=== PATIENT | female | born 1950 | race Caucasian/White ===

== ENCOUNTER → 2017-02-17 | Outpatient (CLI) | payer MEDICARE, OTHER, SELFPAY | PROVIDERS: Family Provider Internal Medicine Adolescent Medicine; Visit Provider Nurse Practitioner Family | DX: M54.5 Low back pain (principal) | CPT/HCPCS: 72110 ==

== ENCOUNTER 2017-04-04 19:39 | Emergency (ER) | payer MEDICARE, OTHER, SELFPAY ==
[2017-04-04 19:43] VITALS: BP 188/71; PULSE 65; RESP 20; TEMP 36.8; O2SAT 96; BMI 29.2
--- NOTE | 2017-04-04 19:56 | XR_ITS ---
XR chest 2V HISTORY: ITS.REASON: C/O N/V AND PRODUCTIVE COUGH ORDERING PHYSICIAN: Tawanda Cortez MD PATIENT AGE: 66 years COMPARISON: 02/05/2017 FINDINGS: The cardiomediastinal silhouette and pulmonary vascularity are within normal limits. The lungs are clear without infiltrates, suspicious nodules, or pleural effusions. There are multilevel interpedicular screws with stabilizing rods. There is severe osteosclerosis in the midthoracic spine. Lower thoracic and upper lumbar spine are not well delineated with multilevel degenerative disc disease. Spine films may be of further value for better delineation of the spine.. IMPRESSION: No change with no acute finding. See above for detail
[2017-04-04 20:12] LABS: Basophils # 0.1 K/mm3 (0-0.2); Basophils % 0.8 % (0.1-2.0); Eosinophils % 0.2 % (0.1-12.0); Hematocrit 47.2 % (37.0-47.0); Hemoglobin 14.6 g/dL (12.2-16.2); Lymphocytes # 1.1 K/mm3 (0.7-4.5); Lymphocytes % 13.1 K/mm3 (10-50); Mean Corpuscular HGB Conc 30.9 g/dL (31.8-35.4); Mean Corpuscular Hemoglobin 30.2 pg (27.0-31.2); Mean Corpuscular Volume 97.8 fl (81-99); Mean Platelet Volume 8.2 fl (7.4-10.4); Monocytes # 0.5 K/mm3 (0.1-1.0); Monocytes % 5.6 % (1.7-9.3); Neutrophils # 6.7 K/mm3 (1.8-7.8); Neutrophils % 80.4 % (37.0-80.0); Platelet Count 258 K/mm3 (142-424); Red Blood Count 4.83 M/mm3 (4.20-5.40); Red Cell Distribution Width 14.6 % (11.5-17.5); White Blood Count 8.3 K/mm3 (4.8-10.8)
[2017-04-04 20:20] LABS: Microscopic, Urine URINE MICROSCOPIC (MICROSCOPIC)
[2017-04-04 20:26] LABS: Appearance,Urine CLEAR (Clear); Blood, Urine 1+ (Negative); Color,Urine YELLOW (Yellow); Glucose,Urine (UA) 1+ (Negative); Ketones,Urine 3+ (Negative); Leukocyte Esterase,Urine Negative (Negative); Nitrate,Urine Negative (Negative); PH,Urine 6.5 (5.0-8.5); Protein,Urine 3+ (Negative); Specific Gravity, Urine >= 1.030 (1.005-1.030); Urobilinogen,Urine 0.2 EU/dl (0.2)
[2017-04-04 20:28] LABS: Bilirubin,Urine 1+ (Negative)
[2017-04-04 20:39] LABS: Alanine Aminotransferase 22 U/L (12-78); Albumin Level 3.6 gm/dL (3.4-5.0); Albumin/Globulin Ratio 0.9 (1.1-1.8); Alkaline Phosphatase 86 U/L (46-116); Anion Gap 15.5 mEq/L (5-15); Aspartate Amino Transferase 10 U/L (15-37); Bilirubin,Total 0.4 mg/dL (0.2-1.0); Blood Urea Nitrogen 13 mg/dL (7-18); Calcium 8.7 mg/dL (8.5-10.1); Carbon Dioxide 25 mmol/L (21.0-32.0); Chloride 103 mmol/L (98-107); Creatine Kinase 36 U/L (26-192); Creatinine Clearance Estimated 66 mL/min (0-300); Creatinine,Serum 0.69 mg/dL (0.55-1.02); Estimated Glomerular Filt Rate 85 ml/min (>60); GFR (African American) 102 ML/MIN (>60); Globulin 4.1 gm/dl (1.3-3.2); Glucose 243 mg/dL (74-106); Potassium 3.5 mmoL/L (3.5-5.1); Sodium 140 mmol/L (136-145); Total Protein,Serum 7.7 gm/dL (6.4-8.2); Troponin I 0.03 ng/ml (0.00-0.06)
[2017-04-04 20:45] LABS: CKMB Relative Index 1.4 U/L (0-4.0); Creatine Kinase MB < 0.5 mg/ml (0.0-3.6)
[2017-04-04 21:12] LABS: Bacteria,Urine 3+ /lpf; RBC,Urine Occasional #/hpf (0-3); Squamous Epithelial Cell,Urine 20-50 #/hpf (0-5); WBC,Urine 20-50 #/hpf (0-3)
--- NOTE | 2017-04-04 21:31 | PC.NURSE ---
C/O LEFT SIDED CHEST PAIN. EKG REPEATED. DR FAIRCHILD NOTIFIED
[2017-04-04 21:32] VITALS: BP 163/84; PULSE 71; RESP 20; O2SAT 99
--- NOTE | 2017-04-04 22:35 | [facility].EDNVD ---
ED Disposition Clinical Impression: Bronchitis, Gastroenteritis Disposition: Home, Self-Care Condition on Discharge: Good Instructions: Nausea and Vomiting-Adult Additional Instructions: fluids and see pcp this week Prescriptions: Azithromycin [Zithromax 250mg tab] 250 mg PO DIRECTED #6 tab Benzonatate [Tessalon Perle 100mg Cap] 100 mg PO TID #30 cap Ondansetron HCl [Zofran 4mg Tab] 4 mg PO TID #30 tab Referrals: Antonio Ta MD [Primary Care Provider] - - Critical Care Critical Care Time: No Attestation: On 04/04/17, the high probability of a clinically significant, sudden or life threatening deterioration of the following system(s) required my full and direct attention, intervention and personal management. The time I documented below is in addition to time spent performing reported procedures but includes the following listed in this critical care notation. Medical Decision Making - Medical Records Medical records reviewed: Yes: I reviewed the patient's medical records. Vital Signs: 04/04/17 19:43 04/04/17 21:32 Temperature 98.2 F Temperature Source Oral Pulse Rate [Right Brachial] 65 71 Respiratory Rate 20 20 Blood Pressure [Right Arm] 188/71 163/84 Blood Pressure Mean [Right Arm] 110 110 Blood Pressure Source [Right Arm] Automatic Cuff Automatic Cuff Blood Pressure Position [Right Arm] Supine Supine 02 Sat by Pulse Oximetry 96 99 Oxygen Delivery Method Room Air Room Air - Lab Data Lab results reviewed: Yes: I reviewed the patient's lab results. Lab Results 04/04/17 19:58: WBC 8.3, RBC 4.83, Hgb 14.6, Hct 47.2 H, MCV 97.8, MCH 30.2, MCHC 30.9 L, RDW 14.6, Plt Count 258, MPV 8.2, Neut % (Auto) 80.4 H, Lymph % (Auto) 13.1, [place] % (Auto) 5.6, Eos % (Auto) 0.2, Baso % (Auto) 0.8, Neut # (Auto) 6.7, Lymph # (Auto) 1.1, [place] # (Auto) 0.5, Eos # (Auto) 0.0, Baso # (Auto) 0.1 04/04/17 19:58: Sodium 140, Potassium 3.5, Chloride 103, Carbon Dioxide 25, Anion Gap 15.5 H, BUN 13, Creatinine 0.69, Estimated Creat Clear 66, Estimated GFR 85, Est GFR ( Amer) 102, Glucose 243 H, Calcium 8.7, Total Bilirubin 0.4, AST 10 L, ALT 22, Alkaline Phosphatase 86, Total Creatine Kinase 36, CK-MB (CK-2) < 0.5, CK-MB (CK-2) Rel Index 1.4, Troponin I 0.03, Total Protein 7.7, Albumin 3.6, Globulin 4.1 H, Albumin/Globulin Ratio 0.9 L 04/04/17 20:17: Urine Color Yellow, Urine Appearance Clear, Urine pH 6.5, Ur Specific [place] >= 1.030, Urine Protein 3+, Urine Glucose (UA) 1+, Urine Ketones 3+, Urine Blood 1+, Urine Nitrate Negative, Urine Bilirubin 1+ A, Urine Urobilinogen 0.2, Ur Leukocyte Esterase Negative, Urine RBC Occasional, Urine WBC 20-50, Ur Squamous Epith Cells 20-50, Urine Bacteria 3+ 04/04/17 23:00: ESR 30 04/04/17 23:00: C-Reactive Protein 0.8, Amylase 28 04/04/17 23:00: Lactic Acid 1.6 04/04/17 23:00: Lipase 164 Result diagrams: 04/04/17 19:58 04/04/17 19:58 Orders (Tests/Meds): ED MEDICATIONS Generic Name Dose Route Start Last Admin Trade Name Freq PRN Reason Stop Dose Admin Sodium Chloride 1,000 mls @ 100 mls/hr 04/04/17 22:45 04/04/17 23:04 Sod Chlor 0.9% 1000ml Bag IV 05/04/17 22:44 100 mls/hr .Q10H DANITZA Administration Discontinued Medications Generic Name Dose Route Start Last Admin Trade Name Freq PRN Reason Stop Dose Admin Sodium Chloride 1,000 mls @ 999 mls/hr 04/04/17 20:00 04/04/17 20:11 Sod Chlor 0.9% 1000ml Bag IV 04/04/17 21:00 999 mls/hr .Q1H1M DANITZA Administration Ondansetron HCl 4 mg 04/04/17 19:56 04/04/17 20:10 Zofran 4mg/2ml Vial IV 04/04/17 19:57 4 mg ONCE ONE Administration ORDERS Category Date Time Status CT abdomen pelvis wo con Stat Cat Scan 04/04/17 22:39 Taken Chest XR 2 view (NOT portable) [XR chest 2V] Stat Exams 04/04/17 19:56 Taken Urine Culture Stat Micro 04/04/17 20:17 Received 12-lead EKG Request [ECG Request by /Shena] Stat Y 04/04/17 21:32 Ordered ECG Request by /Shena Stat Y 04/04/17 19:55 [place]de
--- NOTE | 2017-04-04 22:39 | CT_ITS ---
CT abdomen pelvis wo con CLINICAL INDICATION: Abdominal pain with nausea ITS.REASON: abd pain ORDERING PHYSICIAN: Tawanda Cortez MD PATIENT AGE: 66 years COMPARISON: 03 30 10 TECHNIQUE: Axial images obtained with sagittal and coronal reformats. PROCEDURE: Oral Contrast: None IV Contrast: None . FINDINGS: Lower thoracic images show cardiomegaly and coronary artery calcifications. The liver, spleen, adrenal glands, and pancreas are unremarkable. There has been a prior cholecystectomy without ductal dilatation. Extensive artifact is present from rods within the thoracic and lumbar spine. There is a 3.7 cm isodensity left kidney probably related to a cyst and may be confirmed with ultrasound. No hydronephrosis or obstructing renal or ureteral calculus evident. No evidence of appendicitis or diverticulitis. No intestinal obstruction or free air. There is mild amount of feces in the rectosigmoid region. Prior hysterectomy. Unremarkable appearing urinary bladder. No pelvic mass or focal inflammatory change evident. Extensive artifact is present from thoracolumbar spinal fusion is left hip prosthesis. There is mild lumbar scoliosis convex left. There is 8 mm anterolisthesis of L4 on L5 similar to the previous exam IMPRESSION: 1. No acute intra-abdominal or pelvic findings. 2. Extensive postsurgical changes of the lumbar spine, prior left hip replacement
--- NOTE | 2017-04-04 22:40 | ED_ITS ---
ED Disposition Clinical Impression: Bronchitis, Gastroenteritis Disposition: Home, Self-Care Condition on Discharge: Good Instructions: Nausea and Vomiting-Adult Additional Instructions: fluids and see pcp this week Prescriptions: Azithromycin [Zithromax 250mg tab] 250 mg PO DIRECTED #6 tab Benzonatate [Tessalon Perle 100mg Cap] 100 mg PO TID #30 cap Ondansetron HCl [Zofran 4mg Tab] 4 mg PO TID #30 tab Referrals: Antonio Ta MD [Primary Care Provider] - - Critical Care Critical Care Time: No Attestation: On 04/04/17, the high probability of a clinically significant, sudden or life threatening deterioration of the following system(s) required my full and direct attention, intervention and personal management. The time I documented below is in addition to time spent performing reported procedures but includes the following listed in this critical care notation. Medical Decision Making - Medical Records Medical records reviewed: Yes: I reviewed the patient's medical records. Vital Signs: 04/04/17 19:43 04/04/17 21:32 Temperature 98.2 F Temperature Source Oral Pulse Rate [Right Brachial] 65 71 Respiratory Rate 20 20 Blood Pressure [Right Arm] 188/71 163/84 Blood Pressure Mean [Right Arm] 110 110 Blood Pressure Source [Right Arm] Automatic Cuff Automatic Cuff Blood Pressure Position [Right Arm] Supine Supine 02 Sat by Pulse Oximetry 96 99 Oxygen Delivery Method Room Air Room Air - Lab Data Lab results reviewed: Yes: I reviewed the patient's lab results. Lab Results 04/04/17 19:58: WBC 8.3, RBC 4.83, Hgb 14.6, Hct 47.2 H, MCV 97.8, MCH 30.2, MCHC 30.9 L, RDW 14.6, Plt Count 258, MPV 8.2, Neut % (Auto) 80.4 H, Lymph % ( Auto) 13.1, [place] % (Auto) 5.6, Eos % (Auto) 0.2, Baso % (Auto) 0.8, Neut # (Auto ) 6.7, Lymph # (Auto) 1.1, [place] # (Auto) 0.5, Eos # (Auto) 0.0, Baso # (Auto) 0.1 04/04/17 19:58: Sodium 140, Potassium 3.5, Chloride 103, Carbon Dioxide 25, Anion Gap 15.5 H, BUN 13, Creatinine 0.69, Estimated Creat Clear 66, Estimated GFR 85, Est GFR ( Amer) 102, Glucose 243 H, Calcium 8.7, Total Bilirubin 0.4, AST 10 L, ALT 22, Alkaline Phosphatase 86, Total Creatine Kinase 36, CK-MB (CK-2) < 0.5, CK-MB (CK-2) Rel Index 1.4, Troponin I 0.03, Total Protein 7.7, Albumin 3.6, Globulin 4.1 H, Albumin/Globulin Ratio 0.9 L 04/04/17 20:17: Urine Color Yellow, Urine Appearance Clear, Urine pH 6.5, Ur Specific [place] >= 1.030, Urine Protein 3+, Urine Glucose (UA) 1+, Urine Ketones 3+, Urine Blood 1+, Urine Nitrate Negative, Urine Bilirubin 1+ A, Urine Urobilinogen 0.2, Ur Leukocyte Esterase Negative, Urine RBC Occasional, Urine WBC 20-50, Ur Squamous Epith Cells 20-50, Urine Bacteria 3+ 04/04/17 23:00: ESR 30 04/04/17 23:00: C-Reactive Protein 0.8, Amylase 28 04/04/17 23:00: Lactic Acid 1.6 04/04/17 23:00: Lipase 164 Result diagrams: 04/04/17 19:58 04/04/17 19:58 Orders (Tests/Meds): ED MEDICATIONS Generic Name Dose Route Start Last Admin Trade Name Freq PRN Reason Stop Dose Admin Sodium Chloride 1,000 mls @ 100 mls/hr 04/04/17 22:45 04/04/17 23:04 Sod Chlor 0.9% 1000ml Bag IV 05/04/17 22:44 100 mls/hr .Q10H DANITZA Administration Discontinued Medications Generic Name Dose Route Start Last Admin Trade Name Freq PRN Reason Stop Dose Admin Sodium Chloride 1,000 mls @ 999 mls/hr 04/04/17 20:00 04/04/17 20:11 Sod Chlor 0.9% 1000ml Bag
[2017-04-04 23:46] LABS: Lipase 164 u/L (73-393)
[2017-04-04 23:47] LABS: Amylase 28 U/L (25-125); C-Reactive Protein 0.8 mg/L (0.0-0.9)
[2017-04-04 23:52] LABS: Lactic Acid 1.6 mmol/L (0.4-2.0)
[2017-04-05 01:01] LABS: Erythrocyte Sedimentation Rate 30 mm/hr (0-30)
--- NOTE | 2017-04-05 01:17 | PC.NURSE ---
ON THE PHONE WITH AT THIS TIME
[2017-04-05 01:24] VITALS: BP 158/100; PULSE 77; RESP 14; O2SAT 99
[2017-04-05 01:44] VITALS: BP 140/90; PULSE 88; RESP 14; TEMP 37; O2SAT 96
== END 2017-04-05 01:47 | disposition home or self-care (01) ==
PROVIDERS: Emergency Provider Emergency Medicine; Family Provider Internal Medicine Adolescent Medicine; PCP Internal Medicine Adolescent Medicine
DX: J20.9 Acute bronchitis, unspecified (principal); K52.9 Noninfective gastroenteritis and colitis, unspecified; E11.65 Type 2 diabetes mellitus with hyperglycemia; Z96.642 Presence of left artificial hip joint; Z96.653 Presence of artificial knee joint, bilateral; F17.210 Nicotine dependence, cigarettes, uncomplicated
CPT/HCPCS: 36415; 71046; 74176; 80053; 81001; 82150; 82550; 82553; 83605; 83690; 84484; 85025; 85651; 86140; 87086; 93005; 93041; 96365; 96366; 96374; 96375; 99284; J2405

== ENCOUNTER → 2017-07-20 18:02 | Outpatient (CLI) | payer MEDICARE, OTHER, SELFPAY ==
--- NOTE | 2017-07-20 | XR_ITS ---
XR tibia fibula RT 2V Ordering Physician: Antonoi Ta MD Patient Age: 66 years: Female HISTORY: ITS.REASON: ACUTE PAIN DUE TO TRAUMA Fall 2 weeks ago pain right lateral tib-fib. TECHNIQUE: 2 view right lower leg COMPARISON : FINDINGS The tibia and fibula are intact with no acute fracture. Right total knee arthroplasty. Hypertrophic changes are seen about the margins of the tibia plateau and tibial plateau componen, with spurring most evident laterally from margin of tibia. At this chronic calcification popliteal artery. 2 views of ankle included with no acute findings. Joint space maintained with only scant arthritic changes here. IMPRESSION: -------- Right tibia & fibula are intact no fracture. Right knee TKA . Degenerative changes about TK A, but no acute findings at right knee, on this right lower leg study
--- NOTE | 2017-07-20 | XR_ITS ---
XR femur RT 2V, XR hip RT 2-3V w/pelvis, XR hip LT 2-3V w/pelvis Ordering Physician: Antonio Ta MD Patient Age: 66 years: Female HISTORY: Fall with right leg, right femur, pelvic along with right and left hip pain TECHNIQUE: Right femur 2 view Right hip 2 view. AP and frog-leg Left hip 2 view.AP and frog-leg AP pelvis included COMPARISON :Right hip April 2016 left hip November 2016 ======== RIGHT FEMUR 2 VIEW Right femur intact no fracture. Right femoral shaft intact. Minimal calcification distal SFA 2 view of the knee again included with right NOE a intact no acute findings here. No joint effusion. Some minimal lucency about the tibial pain. Hypertrophic changes about the margin of the tibial component most evident laterally.. ====== RIGHT HIP 2 VIEW Right hip stable and intact with no significant change sinceNo significant change since April 2016 No. fracture. Femoral head and neck intact. Trochanteric region intact.. Joint spaces well-maintained. No acute findings ======= LEFT HIP 2 VIEW Left hip left hip prosthesis. Femoral head prosthesis with acetabular cup. Could be bipolar but there are some flanges from the superior margin of the acetabular cup component and thus could be could be a NOE type product. In either case Appear to be good position with no fracture nor loosening... No significant change since April 2016 on AP view. With slight differences in positioning compared to November 2012 nor left hip most likely reflect the less optimal frog-leg, lateral view today. Medullary stem is intact at the proximal femur. The acetabular component appears stable position.. =-== AP PELVIS included with the the hip study. Shows no acute findings at the pelvis. Patient with posterior fusion and rods at the lower L-spine bilaterally with multiple pedicle screws. There are also pedicle screws extends into the iliac bones bilaterally. There is some prominent lucency surrounding the left iliac screw but this is similar to 2017 exam..... Stable scant scant lucency about the right iliac bone screw. ====== Impression: 1. No fracture nor acute findings at: right femur, right hip, left hip, nor pelvis. 2. Right hip intact.. No fracture.Stable since May 07 . ... Right femur intact 3. Left hip appears stable since April 2016. Left hip prosthesis appears similar with no acute fracture nor loosening. 4. Osseous pelvis. No acute findings The patient has extensive posterior lumbar -sacral fusion, including screws extending into the iliac bone bilaterally. There is noted to be prominent lucency about the left iliac screw, which likely reflects some movement & loosening here. This feature is similar if not slightly more pronounced today than on April 2016. May benefit from follow-up particularly if pain in this region
--- NOTE | 2017-07-20 | XR_ITS ---
XR ribs LT min 3V w CXR1V, XR ribs RT min 3V w CXR1V Ordering Physician: Antonio Ta MD Patient Age: 66 years: Female HISTORY: Fall 2 weeks ago with bilateral rib pain multiple areas of pain and. From injury TECHNIQUE: RIGHT RIBS SERIES: Oblique views with AP chest above and below diaphragm LEFT RIB SERIES Oblique views with AP chest above and below diaphragm COMPARISON :Chest film to 1218. Right rib studies from May 2014 . Left ribs studies from 10/18/2014 ======= RIGHT RIBS SERIES:. Multiple old healed fractures are seen in the right . Most evident old rib fractures involve posterior right 9 th & 10th ribs... With also old healed fractures at posterior lateral eighth seventh and sixth ribs.. These are old & do not appear to be acute. I see no discrete acute fractures additionally. Some of these fractures date back to 2014. No pneumothorax. No pleural effusion in either right or left chest. No focal pneumonia. Tortuous aorta. Heart normal upper normal size. ======== LEFT RIB SERIES . Left ribs appear intact with no acute fracture evident. No significant change since 2014 comparison study. Arthritic changes at the left shoulder noted with narrowing glenohumeral joint and possibly old fracture at the anatomic neck of humerus pain for some foreshortened appearance of the anatomical here The bilateral fixation rods are again noted extending to the mid T-spine. Associated disc space narrowing to T7/8: T8-9 with sclerotic changes about these narrowed disc just superior to the beginning of fixation adrien again noted and stable since 2017 CXR Arthritic changes both shoulders- more severe on the left . IMPRESSION: ... No acute fractures either right nor left ribs. . Multiple old right rib fractures. (Old healed fractures Involving ribs right 6 , 7, 8 , 9, 10, Lungs well expanded and clear with no active disease. Posterior fixation rods extending from mid T-spine to the pelvis appear unchanged
--- NOTE | 2017-07-20 | XR_ITS ---
XR lumbar spine min 4V, ======= seen Ordering Physician: Antonio Ta MD Patient Age: 66 years: Female HISTORY: Low back pain. Fall 2 weeks ago with multiple injuries. Pain. Acute Low back pain. Previous surgery. TECHNIQUE:: LUMBAR SPINE series 5 view. COMPARISON :January 2014 lumbar spine series. ======= LUMBAR SPINE SERIES No discrete acute fracture or findings lumbar spine Extensive posterior fusion spine. Fixation rods begins at lower T-spine & continues through lumbar spine to the pelvis. As seen on subsequent rib series discussed below from today, these Posterior fixation rods begins at the at at approximately T8 level with associated securing pedicle screws at T8, T9 T10 T11 bilaterally and right pedicle screw at T12. Left pedicle screw L1 & L3. Continuing in inferiorly bilateral pedicle screws are seen at L4 & L5, & S1; as well is long pedicle screws extending laterally into the iliac bone.. There is now prominent lucency about the screw change in the left iliac bone. This is progressed since 2013 and even slight progression since left hip series 2016 . Mild levoscoliosis of the lumbar spine with very osteoporotic L1-L2 L3 as well as L4. Marked disc space narrowing at all levels with possibly ankylosis or partial fusion at this nearly obliterating the disc space at L1/2, L2/3.. L4/5 also with markedly narrowed possible partial fused disc space. . The lateral spot image of lumbar sacral junction shows somewhat unusual L4-S1.. At L5/S1 the disc space is notably widened anteriorly possibly in part due to a disc spacer device placed here. The posterior disc space L5/S1 is relatively narrowed narrowed but stable..- With this L5 vertebra demonstrates upward tilt, which then impinges upon the inferior aspect of L4 vertebra.. There is pronounced grade near grade 2 spondylolisthesis of L4 on L5 with progressive hypertrophic lipping and changes at the posterior margin of this disc space... L4/5 disc space with concave inferior endplate of L4 vertebra reflecting the impaction of L5 superior anterior corner upon the inferior endplate L4 vertebra. This appearance is been present since 29 December 2012 lumbar spine series. I would note there also is some bone graft material laterally from prior fusion procedure as well Again I see no good evidence of compression fracture and the slight loss of height of L4 appears to be a stable feature. Sacrum appears intact. If lumbar pain persist consider follow-up CT more detailed evaluation ...... IMPRESSION....... 1. No evident acute fracture or findings at lumbosacral spine . 2. Extensive posterior fusion of spine again evident-. Fixation elements & posterior rods extends from T8 level to the pelvis. This includes screws extending into the iliac bone bilaterally..... Prominent progressive lucency has developed about the left iliac bone fixation screw, suggesting movement. No fracture but Progressive lucency and marginal sclerosis over time,... This would benefit from follow-up, particular if persistent pain here.( preferably with the surgery group which performed this procedure.) . 3.... Long-standing Near grade 2 spondylolisthesis of L4 on L5,... With associated long-standing pronounced inferior endplate concavity L4 related to the retrolisthesis and upward tilt of L5 vertebra... Marked degenerative Disc space narrowing at L4/5 again noted.. .
== END ==
PROVIDERS: PCP Internal Medicine Adolescent Medicine; Visit Provider Internal Medicine Adolescent Medicine
DX: G89.11 Acute pain due to trauma (principal)
CPT/HCPCS: 71101; 72110; 73502; 73552; 73590

== ENCOUNTER → 2017-07-29 11:13 | Outpatient (POV) | payer MEDICARE, OTHER, SELFPAY | PROVIDERS: Visit Provider Podiatrist | DX: Z00.00 Encounter for general adult medical examination without abnormal findings (principal) ==

== ENCOUNTER → 2017-09-09 16:31 | Outpatient (CLI) | payer MEDICARE, OTHER, SELFPAY ==
--- NOTE | 2017-09-09 16:38 | CT_ITS ---
CT head/brain wo con HISTORY: Left side facial pain numbness and droop recurrent maxillary sinus ORDERING PHYSICIAN: Antonio Ta MD PATIENT AGE: 66 years COMPARISON: Previous CT head with and without contrast 10/25/2012 TECHNIQUE: Axial images obtained without contrast. Brain and bone windows reviewed. All CT scans at the facility use one or more dose reduction, viz: automated exposure control; ma/kV adjustment per patient size (including targeted exams where dose is matched to indication; i.e. head); or iterative reconstruction technique. FINDINGS: No acute intracranial findings. No mass lesion or mass effect No midline shift,. No no intracranial hemorrhage, hydrocephalus, or extra-axial fluid collection is evident. . Cerebral atrophy. Low-density deep white matter compatible with chronic small vessel deep white matter ischemic gliotic changes. This subtle low-density in the deep white matter is slightly more evident since 2012 suggesting interval progression since 2012. The posterior fossa unremarkable No mastoid effusion. No sinus air-fluid levels.. IMPRESSION: .. No acute intracranial finding . Small vessel deep white matter ischemic gliotic changes cerebral hemispheres, accounts for the vague low-density deep white matter low-density which , slightly more evident than evident in 2013
--- NOTE | 2017-09-09 16:39 | CT_ITS ---
CT facial bones wo con CLINICAL HISTORY:Left facial pain numbness and droop recurrent maxillary sinusitis ORDERING PHYSICIAN: Antonio Ta MD PATIENT AGE: 66 years COMPARISON:None TECHNIQUE: Axial, sagittal and coronal images are generated and reviewed. All CT scans at this facility use one or more dose reduction techniques, viz.: automated exposure control; ma/kV adjustment per patient size (including targeted exams where dose is matched to indication; i.e. head) or iterative reconstruction technique. PROCEDURE: IV Contrast: None FINDINGS: . Scanning performed through the paranasal sinuses does not include the mandible The maxillary sinuses are well-developed and clear with no significant mucosal thickening at the ostiomeatal complex and pathway is patent bilaterally. The ethmoid air cells unremarkable. Frontal sinuses clear. Mastoid air cells partially imaged well-developed and clear middle ear clear IACs unremarkable. The nasal bone intact. Patient edentulous. Orbits unremarkable., There is some minor deviation and nasal septum to the right. Small up to 3.5 mm minor septal spur to the right encroaches upon the right right nasal airway. Mild/moderate engorgement. Of the nasal turbinates, May encroach upon the nasal airway slightly as well.. .. Left Jazz bullosa there is a slightly enlarged the base of the left middle turbinate IMPRESSION:...... 1.. The paranasal sinuses are well-developed and clear.. .No sinusitis. No remarkable mucosal thickening . Ostiomeatal unit widely patent bilaterally . 2. Centimeters Minor deviation nasal septum to the right. Small septal spur to the right . Moderate engorgement nasal turbinates.. Jazz bullosa slightly enlarging base of left middle turbinate. . These Features slightly compromise the nasal airway bilaterally
== END ==
PROVIDERS: PCP Internal Medicine Adolescent Medicine; Visit Provider Internal Medicine Adolescent Medicine
DX: G50.1 Atypical facial pain (principal)
CPT/HCPCS: 70450; 70486

== ENCOUNTER → 2018-01-04 16:59 | Outpatient (CLI) | payer MEDICARE, OTHER, SELFPAY ==
[2018-01-04 17:36] LABS: Basophils # 0.1 K/mm3 (0-0.2); Basophils % 0.9 % (0.1-2.0); Eosinophils # 0.1 K/mm3 (0.0-0.4); Hematocrit 41.3 % (37.0-47.0); Hemoglobin 12.8 g/dL (12.2-16.2); Lymphocytes # 1.8 K/mm3 (0.7-4.5); Lymphocytes % 26.7 % (10-50); Mean Corpuscular Hemoglobin 31.7 pg (27.0-31.2); Mean Platelet Volume 7.1 fl (7.4-10.4); Monocytes # 0.3 K/mm3 (0.1-1.0); Monocytes % 4.7 % (1.7-9.3); Neutrophils # 4.5 K/mm3 (1.8-7.8); Neutrophils % 66.6 % (37.0-80.0); Platelet Count 250 K/mm3 (142-424); Red Blood Count 4.05 M/mm3 (4.20-5.40); Red Cell Distribution Width 14.2 % (11.5-17.5); White Blood Count 6.8 K/mm3 (4.8-10.8)
[2018-01-04 23:47] LABS: Alanine Aminotransferase 14 U/L (12-78); Albumin Level 3.2 gm/dL (3.4-5.0); Albumin/Globulin Ratio 0.9 (1.1-1.8); Alkaline Phosphatase 91 U/L (46-116); Aspartate Amino Transferase 6 U/L (15-37); Bilirubin,Total 0.3 mg/dL (0.2-1.0); Blood Urea Nitrogen 15 mg/dL (7-18); Calcium 8.7 mg/dL (8.5-10.1); Carbon Dioxide 25 mmol/L (21.0-32.0); Chloride 102 mmol/L (98-107); Creatinine,Serum 0.84 mg/dL (0.55-1.02); Estimated Glomerular Filt Rate 67 ml/min (>60); GFR (African American) 81 ML/MIN (>60); Globulin 3.4 gm/dl (1.3-3.2); Glucose 275 mg/dL (74-106); Sodium 138 mmol/L (136-145); Total Protein,Serum 6.6 gm/dL (6.4-8.2)
== END ==
PROVIDERS: Visit Provider Internal Medicine Adolescent Medicine
DX: R29.898 Other symptoms and signs involving the musculoskeletal system (principal); Z86.79 Personal history of other diseases of the circulatory system
CPT/HCPCS: 36415; 80053; 85025

== ENCOUNTER → 2018-01-09 12:58 | Outpatient (CLI) | payer MEDICARE, OTHER, SELFPAY ==
--- NOTE | 2018-01-09 13:05 | CI_ITS ---
Cerebrovascular Exam Indications: Follow-up carotid 433.10. IMPRESSIONS 1. The bilateral vertebral arteries are patent with normal antegrade flow. 2. Study suggests 20-49% stenosis involving the right internal carotid artery. 3. Study suggests less than 20% stenosis involving the left internal carotid artery. History: Risk factors: Current tobacco use. Hypertension. Diabetes mellitus. Labs, prior tests, procedures, and surgery: Left endarterectomy. Labs, prior tests, procedures, and surgery: Left endarterectomy. Carotid duplex study. Complete study and Doppler flow study including spectral analysis, color and adam scale imaging. Height: Height: 160cm. Height: 63in. Weight: Weight: 77.1kg. Weight: 169.6lb. Body mass index: BMI: 30.1kg/m^2. Body surface area: BSA: 1.88m^2. Location: Vascular laboratory. Patient status: Outpatient. Tables: Arterial flow: + +--------+--------+ Location V sys V ed + +--------+--------+ Right CCA - proximal 77.9cm/s 17.6cm/s + +--------+--------+ Right CCA - distal 62.9cm/s 15.1cm/s + +--------+--------+ Right ECA 174cm/s -------- + +--------+--------+ Right ICA - proximal 126cm/s 24.4cm/s + +--------+--------+ Right ICA - mid 109cm/s 35.6cm/s + +--------+--------+ Right ICA - distal 101cm/s 34.9cm/s + +--------+--------+ Right vertebral 62.9cm/s -------- + +--------+--------+ Left CCA - proximal 68.9cm/s 18.5cm/s + +--------+--------+ Left CCA - distal 72.8cm/s 16.6cm/s + +--------+--------+ Left ECA 112cm/s -------- + +--------+--------+ Left ICA - proximal 69.7cm/s 12.8cm/s + +--------+--------+ Left ICA - mid 74.2cm/s 21.1cm/s + +--------+--------+ Left ICA - distal 79.1cm/s 24.6cm/s + +--------+--------+ Left vertebral 50.1cm/s -------- + +--------+--------+ Velocity ratios: + + + + + + Right, V sys Right, V ed Left, V sys Left, V ed + + + + + + Max ICA/dist CCA 2 2.36 1.09 1.48 + + + + + + (Report amended ) Electronically signed by: Hammad Larsen [id number]
--- NOTE | 2018-01-09 13:53 | CT_ITS ---
CT head/brain wo/w con HISTORY: ITS.REASON: RT ARM WEAKNESS,H/O CAROTID ATHEROSCLEROSIS ORDERING PHYSICIAN: Antonio Ta MD PATIENT AGE: 67 years COMPARISON: September 09, 2017 CT head without contrast. TECHNIQUE: Pre and postcontrast imaging performed. 100 cc Isovue-300 used for the postcontrast study. Axial images obtained without contrast. Brain and bone windows reviewed. All CT scans at the facility use one or more dose reduction, viz: automated exposure control, ma/kV adjustment per patient size (including targeted exams where dose is matched to indication, i.e. head), or iterative reconstruction technique. FINDINGS No acute intracranial findings. Postcontrast study show no abnormal areas of enhancement. Lloyd, white matter interface appears satisfactory. Posterior fossa. Unremarkable. : No midline shift, mass effect, intracranial hemorrhage, hydrocephalus, or extra-axial fluid collection is evident. The skull appears intact. Visualized paranasal sinuses are clear. The maxillary sinuses are not included on axial images. Mild engorgement nasal turbinates. The mastoid air cells are well-developed and clear. Middle air and IACs unremarkable.. No mastoid effusion. No sinus air-fluid levels.. IMPRESSION: Negative CT head with and without contrast. . No abnormal areas of enhancement. No mass lesion. No change since August 2017.
== END ==
PROVIDERS: PCP Internal Medicine Adolescent Medicine; Visit Provider Internal Medicine Adolescent Medicine
DX: R29.898 Other symptoms and signs involving the musculoskeletal system (principal); Z86.79 Personal history of other diseases of the circulatory system; R20.2 Paresthesia of skin
CPT/HCPCS: 70470; 93880; Q9967

== ENCOUNTER → 2018-01-31 10:12 | Outpatient (CLI) | payer MEDICARE, OTHER, SELFPAY ==
--- NOTE | 2018-01-31 10:35 | CT_ITS ---
CT chest w con HISTORY: ITS.REASON: cough, smoker ORDERING PHYSICIAN: Evan Shaffer MD PATIENT AGE: 67 years COMPARISON: None TECHNIQUE: Axial images obtained following the administration of 75 mL of Isovue 370 . Sagittal, and coronal reformatted images are also generated and reviewed. All CT scans at the facility use one or more dose reduction, viz: automated exposure control, ma/kV adjustment per patient size (including targeted exams where dose is matched to indication, i.e. head), or iterative reconstruction technique. FINDINGS: There is a saccular thrombosed aneurysm which projects off of the anterolateral aspect of the aortic arch measuring 3.4 cm AP, 2 cm transverse, and 2.5 cm cephalad to caudad. The florence are partially calcified. This originates from the aorta inferior to distal to the origin of the left subclavian artery. This is contiguous with some atheromatous plaque along the inferior aspect of the aortic arch. Atheromatous changes involving the mid distal aspect of the descending thoracic aorta as well. There are coronary artery calcifications. No mediastinal or hilar mass is evident. No evidence of central pulmonary embolus. There is minimal nodularity in the right middle lobe nonspecific. There are atelectatic changes in the right lung base. Mild diffuse bronchial thickening is noted. There is mild coarsening of bronchovascular markings in the lower lobes. A noncalcified 4 mm nodule present in the left apex anteriorly. An additional 4 mm noncalcified nodule present in the left apex anteriorly and an additional 4 mm nodule in the left apex laterally. All 3 of these are visualized as on image #13 there is an additional 3 mm nodule left upper lobe laterally, image #22. Atelectatic or fibrotic changes are present in the left lower lobe. There are few calcified nodules present. There is a noncalcified nodule in the left lung base at 7 mm seen on image #39. Other smaller nodular densities are scattered throughout both lungs nonspecific. No central obstructing lesions are evident. No obvious thyroid mass. Postsurgical changes are present in the lower thoracic and upper lumbar spine with sclerosis involving the T7 and T8 vertebral bodies. Multiple interpedicular screws are present T8-T12. The superior interpedicular screw on the right at T8 lies very near the disc space not within the and the inferior aspect of thedisc space. Not significantly changed compared to 04/04/2017. IMPRESSION: 1. 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 2. Scattered bilateral pulmonary nodules as detailed above the largest in the left lower lobe 7 mm. Suggest 6 month follow-up in this patient with tobacco use. 3. Scattered atelectatic changes. 4. Coronary artery calcifications
[2018-01-31 10:37] LABS: Blood Urea Nitrogen 18 mg/dL (7-18); Creatinine,Serum 1.03 mg/dL (0.55-1.02); Estimated Glomerular Filt Rate 53 ml/min (>60); GFR (African American) 64 ML/MIN (>60)
== END ==
PROVIDERS: PCP Internal Medicine Adolescent Medicine; Visit Provider Otolaryngology
DX: R13.10 Dysphagia, unspecified (principal)
CPT/HCPCS: 36415; 71260; 82565; 84520; Q9967

== ENCOUNTER → 2018-02-06 08:55 | Outpatient (CLI) | payer MEDICARE, OTHER, SELFPAY ==
--- NOTE | 2018-02-06 08:57 | FL_ITS ---
FL barium swallow INDICATION: ITS.REASON:. Difficulty swallowing cough TECHNIQUE & FINDINGS: Study performed conjunction with speech pathologist Coral herring. . 1 minute 32 seconds fluoroscopy time \This patient could not stand and thus we performed a study in in the right decubitus and minimal semierect AP projection table at 30-35 degrees maximum... However these images did obtain a fairly good, adequate visualization of the thoracic esophagus with its altered technique. Cervical esophagus less well visualized but no lesions The cervical esophagus shows no lesions. No aspiration observed. But there did appear to be Occasional penetration of laryngeal vestibule but this may been distorted/accentuated by the decubitus position. The thoracic esophagus appears satisfactory. No hiatal hernia. No remarkable GE reflux was observed at this setting. No lesions. Distensible. Generous caliber thoracic esophagus.. The patient is post surgical changes at the neck most evident along the left neck. Mild intramarginal osteophytes throughout the C-spine.... Only very limited views of stomach/duodenum bulb obtained. These were Unremarkable. IMPRESSION... Thoracic esophagus satisfactory/ unremarkable. GE junction satisfactory. Cervical esophagus. Postsurgical changes left neck. No lesions. No restriction. penetration into laryngeal vestibule were noted with swallowing. However the swallowing sequence may have been distorted due to the patient drinking in the right lateral decubitus position rather than standing. (She cannot stand] .. Consider speech pathology evaluation with modified barium swallow follow-up if symptoms at this level
== END ==
PROVIDERS: PCP Internal Medicine Adolescent Medicine; Visit Provider Otolaryngology
DX: R13.10 Dysphagia, unspecified (principal)
CPT/HCPCS: 74220

== ENCOUNTER → 2018-02-20 10:30 | Outpatient (POV) | payer MEDICARE, OTHER, SELFPAY | PROVIDERS: Visit Provider Nurse Practitioner Acute Care | DX: Z00.00 Encounter for general adult medical examination without abnormal findings (principal) ==

== ENCOUNTER → 2018-03-08 15:49 | Outpatient (CLI) | payer MEDICARE, OTHER, SELFPAY ==
[2018-03-08 16:12] LABS: Microscopic, Urine URINE MICROSCOPIC (MICROSCOPIC)
[2018-03-08 16:48] LABS: Appearance,Urine CLEAR (Clear); Blood, Urine Negative (Negative); Color,Urine YELLOW (Yellow); Glucose,Urine (UA) 3+ (Negative); Ketones,Urine Negative (Negative); Leukocyte Esterase,Urine Negative (Negative); Nitrate,Urine Negative (Negative); PH,Urine 5.5 (5.0-8.5); Protein,Urine TRACE (Negative); Specific Gravity, Urine 1.025 (1.005-1.030); Urobilinogen,Urine 0.2 EU/dl (0.2)
[2018-03-08 17:15] LABS: Bacteria,Urine Trace /lpf; Bilirubin,Urine Negative (Negative); WBC,Urine Occasional #/hpf (0-3)
[2018-03-08 17:47] LABS: Basophils # 0.1 K/mm3 (0-0.2); Basophils % 0.9 % (0.1-2.0); Eosinophils # 0.1 K/mm3 (0.0-0.4); Eosinophils % 1.3 % (0.1-12.0); Hematocrit 41.3 % (37.0-47.0); Hemoglobin 12.3 g/dL (12.2-16.2); Lymphocytes # 1.8 K/mm3 (0.7-4.5); Lymphocytes % 23.9 % (10-50); Mean Corpuscular HGB Conc 29.9 g/dL (31.8-35.4); Mean Corpuscular Hemoglobin 31.7 pg (27.0-31.2); Mean Platelet Volume 7.4 fl (7.4-10.4); Monocytes # 0.4 K/mm3 (0.1-1.0); Neutrophils # 5.1 K/mm3 (1.8-7.8); Neutrophils % 68.9 % (37.0-80.0); Platelet Count 270 K/mm3 (142-424); Red Blood Count 3.89 M/mm3 (4.20-5.40); Red Cell Distribution Width 14.3 % (11.5-17.5); White Blood Count 7.4 K/mm3 (4.8-10.8)
[2018-03-08 18:34] LABS: Anion Gap 16.4 mEq/L (5-15); Blood Urea Nitrogen 16 mg/dL (7-18); Calcium 8.3 mg/dL (8.5-10.1); Carbon Dioxide 24 mmol/L (21.0-32.0); Chloride 100 mmol/L (98-107); Creatinine,Serum 1.18 mg/dL (0.55-1.02); Estimated Glomerular Filt Rate 45 ml/min (>60); GFR (African American) 55 ML/MIN (>60); Glucose 373 mg/dL (74-106); Potassium 4.4 mmoL/L (3.5-5.1); Sodium 136 mmol/L (136-145)
== END ==
PROVIDERS: Visit Provider Internal Medicine Adolescent Medicine
DX: R30.0 Dysuria (principal); R34 Anuria and oliguria
CPT/HCPCS: 36415; 80048; 81001; 85025; 87086

== ENCOUNTER → 2018-06-06 14:11 | Outpatient (POV) | payer MEDICARE, OTHER, SELFPAY | PROVIDERS: Visit Provider Dermatology | DX: Z00.00 Encounter for general adult medical examination without abnormal findings (principal) ==

== ENCOUNTER → 2018-07-10 16:35 | Outpatient (CLI) | payer MEDICARE, OTHER, SELFPAY ==
[2018-07-10 17:44] LABS: Hemoglobin A1C 9.7 % (0.0-7.0)
[2018-07-10 17:59] LABS: Anion Gap 13.1 mEq/L (5-15); Blood Urea Nitrogen 12 mg/dL (7-18); Calcium 8.3 mg/dL (8.5-10.1); Carbon Dioxide 28 mmol/L (21.0-32.0); Chloride 98 mmol/L (98-107); Creatinine,Serum 0.96 mg/dL (0.55-1.02); Estimated Glomerular Filt Rate 58 ml/min (>60); GFR (African American) 70 ML/MIN (>60); Glucose 122 mg/dL (74-106); Potassium 4.1 mmoL/L (3.5-5.1); Sodium 135 mmol/L (136-145)
== END ==
PROVIDERS: Visit Provider Internal Medicine Adolescent Medicine
DX: E11.9 Type 2 diabetes mellitus without complications (principal); Z79.4 Long term (current) use of insulin
CPT/HCPCS: 36415; 80048; 83036

== ENCOUNTER → 2018-10-24 14:31 | Outpatient (POV) | payer MEDICARE, OTHER, SELFPAY | PROVIDERS: Visit Provider Dermatology | DX: Z00.00 Encounter for general adult medical examination without abnormal findings (principal) ==

== ENCOUNTER 2018-11-27 10:39 | Inpatient (IN) ==
[2018-11-27 11:50] LABS: Anion Gap 15.8 mEq/L (5-15); Calcium 8.9 mg/dL (8.5-10.1)
[2018-11-27 12:26] LABS: Basophils # 0.1 K/mm3 (0-0.2); Basophils % 0.9 % (0.1-2.0); Eosinophils # 0.2 K/mm3 (0.0-0.4); Hematocrit 41.8 % (37.0-47.0); Hemoglobin 12.8 g/dL (12.2-16.2); Lymphocytes # 1.9 K/mm3 (0.7-4.5); Mean Corpuscular HGB Conc 30.6 g/dL (31.8-35.4); Mean Corpuscular Volume 100.6 fl (81-99); Mean Platelet Volume 7.8 fl (7.4-10.4); Monocytes # 0.8 K/mm3 (0.1-1.0); Monocytes % 6.9 % (1.7-9.3); Neutrophils # 8.6 K/mm3 (1.8-7.8); Neutrophils % 74.2 % (37.0-80.0); Platelet Count 319 K/mm3 (142-424); Red Blood Count 4.15 M/mm3 (4.20-5.40); Red Cell Distribution Width 15.6 % (11.5-17.5); White Blood Count 11.6 K/mm3 (4.8-10.8)
--- NOTE | 2018-11-27 14:53 | Pharmacy Consult Notes ---
[facility] Pharmacy VTE Monitoring - Patient Demographics Admission date: 11/27/18 Report Date: 11/27/18 Time: 14:53 Allergies/Adverse Reactions: Patient Allergies cefuroxime [From CEFTIN] Allergy (Mild, Verified 09/11/18 15:43) Height: 1.63 m Weight: 80.343 kg - VTE Risk Labs: VTE Related Lab Results Hgb 12.8 g/dL (12.2-16.2) 11/27/18 12:15 Hct 41.8 % (37.0-47.0) 11/27/18 12:15 Plt Count 319 K/mm3 (142-424) 11/27/18 12:15 BUN 19 mg/dL (7-18) H 11/27/18 11:30 Creatinine 1.11 mg/dL (0.55-1.02) H 11/27/18 11:30 Estimated Creat Clear 60 mL/min (50-200) 11/27/18 11:30 VTE Score: 5 VTE Risk Level: Low Risk - Prophylaxis VTE Prophylaxis Ordered?: Yes Types of VTE Prophylaxis: TEDS Knee High Location of Applied Device: Bilateral Lower Extremeties - VTE Diagnosis Confirmed Treatment or plan recommended: Continue Current Treatment
--- NOTE | 2018-11-27 15:32 | Electrocardiograph Report ---
APPROVED REPORT Exam: Resting ECG HR:67 bpm ECG Measurements Heart Rate 67 AXES NE 158 P 32 QRSd 82 QRS -29 QT 422 T124 QTc 445 <Conclusion> Sinus rhythm with PAC'S ST & T wave abnormality, consider lateral ischemia Abnormal ECG Electronically signed by : Blair Roblero, 11/27/2018 15:32:21
--- NOTE | 2018-11-27 15:46 | History & Physical Report ---
*Admission Date: 11/27/18 *Chief complaint: Right side hemiparesis *History of present illness: 68-year-old white female with disabling COPD, chronic cigarette use and chronic opiate use with functional paraplegia, who follows with a pain clinic in [place], came to my office today with a chief complaint of "not being able to use my right arm since Tuesday." Patient noted progressive disuse of the right arm as well as some dysarthria and called my office. She was instructed to go to the ER for what sounded like stroke symptoms but for a variety of reasons she chose not to. She arrived to my office today and was noted to have right arm and right leg hemiparesis with right-sided facial drooping. She is admitted to hospital for diagnosis of stroke, imaging studies, further work-up and neurologic follow-up. [facility] History I have reviewed the patient's past medical history: Yes Medical History: Reports:: Anxiety, Carotid Stenosis, Depression, Diabetes Mellitus Type 2, Gastroesophageal Reflux Disease(GERD), Hyperlipidemia, Hypertension, Peripheral Artery Disease Denies:: Cancer, Diabetes Mellitus Type 1, Internal Pacemaker, Lung Disease, MRSA, Seizures *Have you ever received a pneumonia vaccine?: No *Have you received a flu vaccine this season?: No Other Medical History: Reports: Arthritis, Other. Denies: Blood Transfusion Reaction Laterality Cases: Left: Total Hip Replacement Other Surgeries: Yes: Cardiac Surgery, Colonoscopy, Hysterectomy-Partial, Tubal Ligation, Other (CEA, back fusion). No: Pacemaker Amputation: No Fractures: No - *Social History Smoking Status: Current every day smoker Tobacco Type: cigarettes # Packs/Day (cigarettes): 10 Alcohol Intake: never Alcohol Intake Frequency:: other Substance Use Type: denies use *Occupational Status:: disabled Housing: house Household Members: spouse *Travel in the last 8 weeks: None - Psychiatric History Pschychiatric History:: Reports:: Anxiety, Depression Family Hx:: Hyperlipidemia, Hypertension Review of Systems - Constitutional Reports fatigue, Reports lack of energy, Reports malaise, Denies anorexia, Denies body ache(s), Denies excessive sweating - Eyes Denies blind spots, Denies blurry vision, Denies bulging eyes - ENT Reports poor balance, Reports dizziness, Denies abnormal hearing, Denies ear pain, Denies nosebleed - *Cardiovascular Reports leg pain with activity, Reports shortness of breath with activity, Denie s chest pain, Denies chest pain with activity, Denies excessive sweating, Denies generalized swelling - *Respiratory Reports chest congestion, Reports cough, Reports shortness of breath, Reports excessive phlegm production, Denies change in phlegm color - *Gastrointestinal Denies abdominal pain, Denies belching, Denies bloating, Denies vomiting blood, Denies bright, red blood in stools - *Musculoskeletal Reports abnormal walking, Reports limited joint movement, Reports muscle weakness - Integumentary/Breasts Denies change in skin color, Denies changing lesions, Denies yellowing of the skin - *Neurologic Reports abnormal walking, Reports abnormal movements, Reports frequent falls, Reports lack of coordination, Reports dizziness, Reports weakness, Denies tingling/numbness/burning sensations, Denies seizure-like activity Meds Home Medications Medication Instructions Recorded Confirmed Type alendronate 70 mg tablet 1 tab PO WEEKLY 84 Days 04/25/17 11/27/18 History carvedilol 25 mg tablet 25 mg PO DAILY 30 Days 04/25/17 11/27/18 History clopidogrel 75 mg tablet 75 mg PO DAILY 90 Days 04/25/17 11/27/18 History gabapentin 800 mg tablet 1 tab PO TID 90 Days 04/25/17 11/27/18 History leflunomide 10 mg tablet 10 mg PO DAILY 30 Days 04/25/17 11/27/18 History lisinopril 20 mg tablet 20 mg PO DAILY 30 Days 04/25/17 11/27/18 History meloxicam 15 mg tablet 1 tab PO DAILY 90 Days 04/25/17 11/27/18 History metolazone 2.5 mg tablet 1 tab PO DAILY 90 Days 04/25/17 11/27/18 History paroxetine 40 mg tablet 40 mg PO DAILY 90 Days 04/25/17 11/27/18 History potassium chloride ER 20 mEq 1 tab PO DAILY 90 Days 04/25/17 11/27/18 History tablet,extended release(part/cryst) simvastatin 40 mg tablet 40 mg PO DAILY 90 Days 04/25/17 11/27/18 History oxycodone-acetaminophen 10 mg-325 1 tab PO QID PRN 30 Days 08/23/17 11/27/18 History mg tablet topiramate 50 mg tablet 50 mg PO DAILY 30 Days 08/23/17 11/27/18 History Aspirin [Aspir 81] 81 mg PO DAILY 03/21/18 11/27/18 History Metoclopramide HCl [Reglan 10mg 10 mg PO QID 05/23/18 11/27/18 History Tab] alprazolam 0.5 mg tablet 0.5 mg PO TID tab 09/11/18 11/27/18 History docusate sodium 250 mg capsule 2 mg PO BID #120 cap 09/11/18 11/27/18 History insulin degludec (U-200) 200 20 unit SQ DAILY 120 Days #0 09/11/18 11/27/18 History unit/mL (3 mL) subcutaneous pen metformin 500 mg tablet 1,000 mg PO BID tab 09/11/18 11/27/18 History omeprazole 20 mg capsule,delayed 20 mg PO DAILY cap 09/11/18 11/27/18 History release Baclofen [Lioresal 10mg tablet] 10 mg PO TID 11/27/18 11/27/18 History Glimepiride 4 mg PO BID 11/27/18 11/27/18 History Allergies Allergy/AdvReac Type Severity Reaction Status Date / Time cefuroxime [From CEFTIN] Allergy Mild Verified 09/11/18 15:43 Exam Vital signs and Labs for Last 24 Hours: Temp Pulse Resp BP Pulse Ox 97.9 F 58 L 20 156/67 H 98 11/27/18 11:24 11/27/18 11:24 11/27/18 11:24 11/27/18 11:24 11/27/18 11:24 Laboratory Results - last 24 hr 11/27/18 11:30: Sodium 134 L, Potassium 4.8, Chloride 97 L, Carbon Dioxide 26, Anion Gap 15.8 H, BUN 19 H, Creatinine 1.11 H, Estimated Creat Clear 60, Estimated GFR 49 L, Est GFR ( Amer) 59, Glucose 235 H, Calcium 8.9, Magnesium 1.1 L 11/27/18 12:15: WBC 11.6 H, RBC 4.15 L, Hgb 12.8, Hct 41.8, MCV 100.6 H, MCH 30.8, MCHC 30.6 L, RDW 15.6, Plt Count 319, MPV 7.8, Neut % (Auto) 74.2, Lymph % (Auto) 16.0, [place] % (Auto) 6.9, Eos % (Auto) 2.0, Baso % (Auto) 0.9, Neut # (Auto) 8.6 H, Lymph # (Auto) 1.9, [place] # (Auto) 0.8, Eos # (Auto) 0.2, Baso # (Auto) 0.1 I & O for Last 24 hours: Intake & Output 11/25/18 11/26/18 11/27/18 11/28/18 11:59 11:59 11:59 11:59 Weight 177 lb 2 oz Narrative: Patient is sitting in her wheelchair. Right-sided facial droop. Significant hoarseness at patient's baseline. Oropharynx moist, heavy odor of nicotine. No JVD. Otherwise cranial nerves are intact. Significant right-sided hemiparesis with 4/5 weakness in the right arm and leg, including spinner continuous strength, right arm and leg flexion. Reflexes are symmetric. Left side strength is 5/5's. Lungs have rhonchi throughout at baseline. Heart rate regular. Abdomen soft and nontender. Assessment and Plan (1) Hemiplegia affecting right dominant side Current visit: Yes Status: Acute Category: Medical Code(s): G81.91 - Hemiplegia, unspecified affecting right dominant side Significant/high risk for stroke disease. Admit to hospital. Neurologic checks, blood pressure observation. MRI scanning. PT/OT evaluation. (2) COPD (chronic obstructive pulmonary disease) with chronic bronchitis Current visit: Yes Status: Acute Category: Medical Code(s): J44.9 - Chronic obstructive pulmonary disease, unspecified Seems to be at baseline. Continue current medications (3) Chronic, continuous use of opioids Current visit: Yes Status: Acute Category: Medical Code(s): F11.90 - Opioid use, unspecified, uncomplicated Long history of opioid use. Continue current dosage (4) Personal history of nicotine dependence Current visit: Yes Status: Acute Category: Medical Code(s): Z87.891 - Personal history of nicotine dependence
--- NOTE | 2018-11-27 19:44 | Cardiology Report ---
APPROVED REPORT Internet Consultant: FRANK Laterality: Bilateral Study Quality: Adequate Indications: cva HTN DIABETES SMOKER Doppler Spectral Velocity Analysis ECA (R) 137.00/ cm/sECA (L) 93.50/ cm/s dICA (R) 126.00/32.20 cm/sdICA (L) 46.40/13.40 cm/s Miguel (R) 99.00/26.70 cm/smICA (L) 65.20/13.40 cm/s pICA (R) 138.00/26.70 cm/spICA (L) 97.40/14.90 cm/s dCCA (R) 68.40/18.10 cm/sdCCA (L) 81.70/16.50 cm/s pCCA (R) 57.40/14.10 cm/spCCA (L) 66.00/17.30 cm/s Vert (R) 47.10/ cm/sVert (L) 60.50/ cm/s ICA/CCA 2.02 ICA/CCA 1.19 Findings Duplex evaluation demonstrates stenosis of the right proximal internal carotid artery in the range of 20-49% with PSV <140 cm/sec, EDV <100 cm/sec, and IC/CC Ratio <4.0.Duplex evaluation demonstrates stenosis of the left proximal internal carotid artery <20% with PSV <140 cm/sec, EDV <100 cm/sec, and IC/CC Ratio <4.0. Prior ECA left. Antegrade flow seen bilateral vertebral arteries. Conclusion Duplex evaluation demonstrates stenosis of the right proximal internal carotid artery in the range of 20-49% with PSV <140 cm/sec, EDV <100 cm/sec, and IC/CC Ratio <4.0.Duplex evaluation demonstrates stenosis of the left proximal internal carotid artery <20% with PSV <140 cm/sec, EDV <100 cm/sec, and IC/CC Ratio <4.0. Prior ECA left. Antegrade flow seen bilateral vertebral arteries. No increased velocities to suggest hemodynamically significant stenosis in either internal carotid artery. Electronically signed by : Byron Vazquez MD 11/27/2018 19:43:29
--- NOTE | 2018-11-27 21:06 | Cardiology Report ---
APPROVED REPORT EXAM: Comprehensive 2D, Doppler, and color-flow Echocardiogram Director Educational Radio: Nicole Amanda RDCS Ht: 5 ft 4 in Wt: 180lbs BSA: 1.87 BP: 165/80 mmHg Indications: COPD, Shortness of Breath, CVA/TIA, Diabetes, Hypertension/HDD M-Mode Dimensions RVDd 1.40 cm (0.9-2.6)LA Diam 4.00 cm (1.9-4.0) LVDd 6.00 cm (3.5-5.7)Ao Diam 4.10 cm (2.0-3.7) LVDs 5.10 cm (3.5-5.7)AV Cusp 1.70 cm (1.5-2.6) IVSd 0.70 cm (0.6-1.1)PWd 0.80 cm (0.6-1.1) EF (Teich) 31.10% FS 15.00% EDV (Teich) 180.00 mLESV (Teich) 124.00 mL LV Diastology E/A Ratio 0.7 Mitral Valve MV E Max Fernando. 74.00 (40-130 cm/s)MV A Velocity 101.00 (40-130 cm/s) E/A Ratio 0.70 Left Ventricle Left atrium is mildly enlarged, left ventricle is normal size, mild concentric left ventricular hypertrophy, visually estimated ejection fraction 50% with no regional wall motion abnormality, endocardial surfaces are very poorly visualized. Right Ventricle Right atrium and right ventricular mildly enlarged with normal contractility. Aortic Valve Aortic valve leaflets are poorly visualized. Mitral Valve Mitral valve leaflets are minimally thickened, there is mild mitral regurgitation. Tricuspid Valve Tricuspid valve is grossly normal. Pulmonic Valve Pulmonic valve is poorly visualized. Great Vessels Aortic root is normal size. Pericardium No significant pericardial effusion noted. Conclusion 1. Technically very difficult study because of the patient fact in poor acoustic windows 2. Mild biatrial enlargement, normal left ventricular size, mild concentric left ventricular hypertrophy, visually estimated ejection fraction approximately 50% with no regional wall motion abnormality, endocardial surfaces are poorly visualized. Doppler evidence of impaired LV relaxation seen. There is no tissue Doppler performed. 3. Mildly enlarged right ventricle with normal contractility. 4. The aortic valve is poorly visualized. 5. Mild mitral and tricuspid regurgitation 6. No significant pericardial effusion noted. Electronically signed by : Livan Causey, 11/27/2018 21:06:00
--- NOTE | 2018-11-28 11:47 | Progress Note ---
Internal Medicine - PN: Subj *Date: 11/28/18 *Time: 08:30 Interval history: Ms. Agosto overall did well overnight. Tolerating p.o. intake. Does state she will cough a little bit on occasion with drinking. Denies fever, headache, chest pain, shortness of breath. Seen by physical therapy, recommend patient would benefit from stroke rehab. Denies worsening weakness or numbness in right side of body Exam Vital signs and Labs for Last 24 Hours: Temp Pulse Resp BP Pulse Ox 98.0 F 65 18 144/58 H 98 11/28/18 08:00 11/28/18 08:00 11/28/18 08:00 11/28/18 08:00 11/28/18 08:00 Laboratory Results - last 24 hr 11/27/18 11:30: Sodium 134 L, Potassium 4.8, Chloride 97 L, Carbon Dioxide 26, Anion Gap 15.8 H, BUN 19 H, Creatinine 1.11 H, Estimated Creat Clear 60, Estimated GFR 49 L, Est GFR ( Amer) 59, Glucose 235 H, Calcium 8.9, Mag nesium 1.1 L 11/27/18 12:15: WBC 11.6 H, RBC 4.15 L, Hgb 12.8, Hct 41.8, MCV 100.6 H, MCH 30.8, MCHC 30.6 L, RDW 15.6, Plt Count 319, MPV 7.8, Neut % (Auto) 74.2, Lymph % (Auto) 16.0, [place] % (Auto) 6.9, Eos % (Auto) 2.0, Baso % (Auto) 0.9, Neut # (Auto) 8.6 H, Lymph # (Auto) 1.9, [place] # (Auto) 0.8, Eos # (Auto) 0.2, Baso # (Auto) 0.1 11/27/18 16:15: POC Glucose 232 H 11/27/18 21:11: POC Glucose 245 H 11/28/18 05:28: POC Glucose 175 H 11/28/18 11:10: POC Glucose 254 H I & O for Last 24 hours: Intake & Output 11/25/18 11/26/18 11/27/18 11/28/18 23:59 23:59 23:59 23:59 Intake Total 171 / 171 874 / 874 Output Total 1050 / 1250 650 / 650 Balance -879 / -1079 224 / 224 Weight 80.343 kg 79.435 kg Narrative: Patient is sitting in bed, alert and oriented. No acute distress. Edentulous, moist mucous membranes, no focal findings on right side of face Significant hoarseness at patient's baseline. No JVD. Significant right-sided hemiparesis with 4/5 strength in the right arm, automation controls engineer, and leg; no clonus or hyper reflexes. Strength deficit affects automation controls engineer strength, right arm and leg flexion. Reflexes are symmetric. Left side strength is 5/5's. Lungs have rhonchi throughout at baseline, good air movement bilaterally, no wheeze or crackles Heart rate regular Abdomen soft and nontender. Assessment and Plan (1) Hemiplegia affecting right dominant side Current visit: Yes Status: Acute Category: Medical Code(s): G81.91 - Hemiplegia, unspecified affecting right dominant side (2) COPD (chronic obstructive pulmonary disease) with chronic bronchitis Current visit: Yes Status: Acute Category: Medical Code(s): J44.9 - Chronic obstructive pulmonary disease, unspecified (3) Chronic, continuous use of opioids Current visit: Yes Status: Acute Category: Medical Code(s): F11.90 - Opioid use, unspecified, uncomplicated (4) Personal history of nicotine dependence Current visit: Yes Status: Acute Category: Medical Code(s): Z87.891 - Personal history of nicotine dependence - Assessment and plan all Dx Assessment and Plan for all problems:: 68-year-old female status post left-sided lacunar infarct with right-sided deficits. Continue to monitor blood pressure. Deficits stable if not slightly improved. Physical therapy and occupational therapy assess patient, will obtain speech eval today given complaint of some intermittent cough with drinking liquids. Placement pending recommendations from therapists. Suspect patient would benefit from placement in stroke rehab to optimize improvement and maximize future mobility and functionality. Continues to require inpatient management at this time.
--- NOTE | 2018-11-29 20:31 | Progress Note ---
Internal Medicine - PN: Subj *Date: 11/29/18 *Time: 20:29 Interval history: Feeling ok.. no nicotine patch. Still weak in arm. Swallowing ok Exam Vital signs and Labs for Last 24 Hours: Temp Pulse Resp BP Pulse Ox 97.7 F 72 18 128/53 L 94 L 11/29/18 19:53 11/29/18 19:53 11/29/18 19:53 11/29/18 19:53 11/29/18 19:53 Laboratory Results - last 24 hr 11/28/18 20:38: POC Glucose 272 H 11/29/18 05:32: POC Glucose 186 H 11/29/18 11:48: POC Glucose 277 H I & O for Last 24 hours: Intake & Output 11/27/18 11/28/18 11/29/18 11/30/18 11:59 11:59 11:59 11:59 Intake Total 1045 / 1045 1385 / 1385 720 / 720 Output Total 1700 / 1700 2700 / 2700 200 / 200 Balance -655 / -655 -1315 / -1315 520 / 520 Weight 177 lb 2 oz 175 lb 2 oz 179 lb 178 lb 15.999 oz - Constitutional no acute distress, morbidly obese - *Routine HEENT Exam Head: Present: normocephalic Eye: Present: EOMI ENT: Present: mucous membranes moist - *Routine Neck Exam Present: supple - *Routine Respiratory Exam Present: prolonged expiratory phase, rhonchi - *Routine Cardiovascular Exam Present: RRR - *Routine Abdominal Exam Present: soft - *Routine Extremities Exam Present: pulses intact - *Routine Neurological Exam Present: motor deficit (on right as prior) Assessment and Plan (1) Hemiplegia affecting right dominant side Current visit: Yes Status: Acute Category: Medical Code(s): G81.91 - Hemiplegia, unspecified affecting right dominant side (2) COPD (chronic obstructive pulmonary disease) with chronic bronchitis Current visit: Yes Status: Acute Category: Medical Code(s): J44.9 - Chronic obstructive pulmonary disease, unspecified (3) Chronic, continuous use of opioids Current visit: Yes Status: Acute Category: Medical Code(s): F11.90 - Opioid use, unspecified, uncomplicated (4) Personal history of nicotine dependence Current visit: Yes Status: Acute Category: Medical Code(s): Z87.891 - Personal history of nicotine dependence - Assessment and plan all Dx Assessment and Plan for all problems:: no changes in plan... acute cva.. on DAPT. Tx to SNF when appropriate
--- NOTE | 2018-11-30 10:21 | Progress Note ---
Internal Medicine - PN: Subj *Date: 11/30/18 *Time: 10:20 Interval history: Ms. Agosto is doing well. Sitting in bedside chair on interview this morning. Denies chest pain, confusion, new weakness or focal signs of CVA. Awaiting placement for rehab. Tolerating regular diet Exam Vital signs and Labs for Last 24 Hours: Temp Pulse Resp BP Pulse Ox 97.5 F L 62 18 169/79 H 98 11/30/18 08:00 11/30/18 08:00 11/30/18 08:00 11/30/18 08:00 11/30/18 08:00 Laboratory Results - last 24 hr 11/29/18 11:48: POC Glucose 277 H 11/29/18 16:39: POC Glucose 244 H 11/29/18 20:26: POC Glucose 373 H* 11/30/18 05:16: POC Glucose 240 H I & O for Last 24 hours: Intake & Output 11/27/18 11/28/18 11/29/18 11/30/18 23:59 23:59 23:59 23:59 Intake Total 171 / 171 2139 / 2139 960 / 960 1560 / 1560 Output Total 1050 / 1250 2500 / 2500 1650 / 1850 1100 / 1100 Balance -879 / -1079 -361 / -361 -690 / -890 460 / 460 Weight 80.343 kg 79.435 kg 81.193 kg 81.363 kg Narrative: Patient is sitting in bed side chair, alert and oriented. No acute distress. Edentulous, moist mucous membranes, no focal findings on right side of face Significant hoarseness at patient's baseline. No JVD. Significant right-sided hemiparesis with 4/5 strength in the right arm, audio video mechanic, and leg; no clonus or hyper reflexes. Strength deficit affects audio video mechanic strength, right arm and leg flexion. Reflexes are symmetric. Left side strength is 5/5's. Lungs have rhonchi throughout at baseline, good air movement bilaterally, no wheeze or crackles Heart rate regular Abdomen soft and nontender. Assessment and Plan (1) Hemiplegia affecting right dominant side Current visit: Yes Status: Acute Category: Medical Code(s): G81.91 - Hemiplegia, unspecified affecting right dominant side (2) COPD (chronic obstructive pulmonary disease) with chronic bronchitis Current visit: Yes Status: Acute Category: Medical Code(s): J44.9 - Chronic obstructive pulmonary disease, unspecified (3) Chronic, continuous use of opioids Current visit: Yes Status: Acute Category: Medical Code(s): F11.90 - Opioid use, unspecified, uncomplicated (4) Personal history of nicotine dependence Current visit: Yes Status: Acute Category: Medical Code(s): Z87.891 - Personal history of nicotine dependence - Assessment and plan all Dx Assessment and Plan for all problems:: Today she required admission secondary to CVA. Pending placement with rehab. Anticipate discharge tomorrow. Continue current course as per orders. No significant changes today. We will continue rehab while admitted. Overall showing some minor improvement
--- NOTE | 2018-11-30 18:15 | Discharge Summary ---
General - General Admission date:: 11/27/18 Discharge date: 12/01/18 HPI HPI: 68-year-old white female with disabling COPD, chronic cigarette use and chronic opiate use with functional paraplegia, who follows with a pain clinic in [place], came to my office today with a chief complaint of "not being able to use my right arm since Tuesday." Patient noted progressive disuse of the right arm as well as some dysarthria and called my office. She was instructed to go to the ER for what sounded like stroke symptoms but for a variety of reasons she chose not to. She arrived to my office today and was noted to have right arm and right leg hemiparesis with right-sided facial drooping. She is admitted to hospital for diagnosis of stroke, imaging studies, further work-up and neurologic follow-up. Hospital Course Hospital Course: 68-year-old female admitted with right-sided weakness and finding of left-sided lacunar infarct. Blood pressure controlled, treated with aspirin. Physical therapy assess patient, recommended post stroke rehab. Received services while admitted pending placement, patient remained hemodynamically stable, tolerating p.o. intake, feeding self. Able to ambulate with assistance. Plan for discharge to [place] for stroke rehab to optimize improvement in ADLs. Hemodynamically stable, denies chest pain, shortness of breath, nausea, vomiting. Blood pressure medications per med rec. Stable for discharge Objective Vital signs: Temp Pulse Resp BP Pulse Ox 98.6 F 60 17 140/67 97 11/30/18 16:00 11/30/18 16:00 11/30/18 16:00 11/30/18 16:00 11/30/18 16:00 Narrative: Patient is sitting in bed, alert and oriented, eating breakfast. No acute distress. Edentulous, moist mucous membranes, no focal findings on right side of face Significant hoarseness, at patient's baseline. No JVD. Significant right-sided hemiparesis with 4/5 strength in the right arm, card painter, and leg; no clonus or hyper reflexes. Strength deficit affects card painter strength, right arm and leg flexion. Reflexes are symmetric. Left side strength is 5/5's. Lungs have rhonchi throughout at baseline, good air movement bilaterally, no wheeze or crackles Heart rate regular Abdomen soft and nontender. Results Labs on day of discharge: Labs from last 24 hours 11/30/18 11/29/18 11/29/18 05:16 20:26 16:39 POC Glucose 240 H 373 H* 244 H DS: Diagnosis - Discharge Diagnosis (1) Hemiplegia affecting right dominant side Status: Acute (2) COPD (chronic obstructive pulmonary disease) with chronic bronchitis Status: Chronic (3) Chronic, continuous use of opioids Status: Chronic (4) Personal history of nicotine dependence Status: Chronic Discharge Plan - Patient Discharge Instructions ACTIVITY: Continue current activity DIET: continue same diet Patient Instructions: Ischemic Stroke, DI for Stroke-Ischemic - Follow up Plan Disposition: [facility] Home Medications: Home Medications Medication Instructions Recorded Confirmed Type alendronate 70 mg tablet 1 tab PO WEEKLY 84 Days 04/25/17 11/27/18 History clopidogrel 75 mg tablet 75 mg PO DAILY 90 Days 04/25/17 11/27/18 History gabapentin 800 mg tablet 1 tab PO TID 90 Days 04/25/17 11/27/18 History leflunomide 10 mg tablet 10 mg PO DAILY 30 Days 04/25/17 11/27/18 History lisinopril 20 mg tablet 20 mg PO DAILY 30 Days 04/25/17 11/27/18 History meloxicam 15 mg tablet 1 tab PO DAILY 90 Days 04/25/17 11/27/18 History metolazone 2.5 mg tablet 1 tab PO DAILY 90 Days 04/25/17 11/27/18 History paroxetine 40 mg tablet 40 mg PO DAILY 90 Days 04/25/17 11/27/18 History potassium chloride ER 20 mEq 1 tab PO DAILY 90 Days 04/25/17 11/27/18 History tablet,extended release(part/cryst) simvastatin 40 mg tablet 40 mg PO HS 90 Days 04/25/17 11/27/18 History oxycodone-acetaminophen 10 mg-325 1 tab PO QID PRN 30 Days 08/23/17 11/27/18 History mg tablet topiramate 50 mg tablet 50 mg PO DAILY 30 Days 08/23/17 11/27/18 History Aspirin [Aspir 81] 81 mg PO DAILY 03/21/18 11/27/18 History alprazolam 0.5 mg tablet 0.5 mg PO TID tab 09/11/18 11/27/18 History docusate sodium 250 mg capsule 500 mg PO BID #120 cap 09/11/18 11/27/18 History insulin degludec (U-200) 200 20 unit SQ DAILY 120 Days #0 09/11/18 11/27/18 History unit/mL (3 mL) subcutaneous pen metformin 500 mg tablet 1,000 mg PO BID tab 09/11/18 11/27/18 History omeprazole 20 mg capsule,delayed 20 mg PO DAILY cap 09/11/18 11/27/18 History release Baclofen [Lioresal 10mg tablet] 10 mg PO TID 11/27/18 11/27/18 History Glimepiride 4 mg PO BID 11/27/18 11/27/18 History Carvedilol [Carvedilol 25mg Tab] 25 mg PO BID 11/28/18 11/28/18 History Prescriptions/Medication Reconciliation: New Carvedilol [Coreg 25mg Tablet] 25 mg PO BID tablet Continued gabapentin 800 mg tablet 1 tab PO TID 90 Days potassium chloride ER 20 mEq tablet,extended release(part/cryst) 1 tab PO DAILY 90 Days clopidogrel 75 mg tablet 75 mg PO DAILY 90 Days lisinopril 20 mg tablet 20 mg PO DAILY 30 Days leflunomide 10 mg tablet 10 mg PO DAILY 30 Days meloxicam 15 mg tablet 1 tab PO DAILY 90 Days oxycodone-acetaminophen 10 mg-325 mg tablet 1 tab PO QID PRN 30 Days PRN Reason: pain topiramate 50 mg tablet 50 mg PO DAILY 30 Days alprazolam 0.5 mg tablet 0.5 mg PO TID tab metformin 500 mg tablet 1,000 mg PO BID tab omeprazole 20 mg capsule,delayed release 20 mg PO DAILY cap paroxetine 40 mg tablet 40 mg PO DAILY 90 Days simvastatin 40 mg tablet 40 mg PO HS 90 Days alendronate 70 mg tablet 1 tab PO WEEKLY 84 Days docusate sodium 250 mg capsule 500 mg PO BID #120 cap insulin degludec (U-200) 200 unit/mL (3 mL) subcutaneous pen 20 unit SQ DAILY 120 Days #0 Baclofen [Lioresal 10mg tablet] 10 mg PO TID Carvedilol [Carvedilol 25mg Tab] 25 mg PO BID Aspirin [Aspir 81] 81 mg PO DAILY Glimepiride 4 mg PO BID Discontinued metolazone 2.5 mg tablet 1 tab PO DAILY 90 Days - Problem Reconciliation Problems Reviewed?: Yes
== END 2018-12-01 14:49 | DRG 65 ==
LOC: 2ND 10:41
PROVIDERS: ADMIT Internal Medicine Adolescent Medicine; ATTEND Internal Medicine Adolescent Medicine

== ENCOUNTER → 2019-03-12 14:36 | Outpatient (CLI) | payer MEDICARE, OTHER, SELFPAY ==
--- NOTE | 2019-03-12 14:45 | CT_ITS ---
PROCEDURE: CT HEAD/BRAIN WO CON CLINICAL INDICATION: HEADACHE , HX OF CVA COMPARISON: HEADWW CT head/brain wo/w con from 01/09/2018 TECHNIQUE: Axial images obtained. All CT scans at the facility use one or more dose reduction, viz: automated exposure control, ma/kV adjustment per patient size (including targeted exams where dose is matched to indication, i.e. head), or iterative reconstruction technique. FINDINGS: No midline shift, mass effect, intracranial hemorrhage, hydrocephalus, or extra-axial fluid collection is evident. Remote cavitary infarction of the left thalamic nucleus of is noted. Moderate small vessel ischemic gliotic disease bilateral cerebral white matter is noted. No acute infarction is apparent. The calvarium has an unremarkable appearance. No mastoid effusion. No sinus air-fluid level. IMPRESSION: No acute intracranial finding Dictated by: Salvador Grover 03/12/2019 15:41 Electronically signed by Salvador Grover in [place] 03/12/2019 15:41
== END ==
PROVIDERS: PCP Internal Medicine Adolescent Medicine; Visit Provider Internal Medicine Adolescent Medicine
DX: R51 Headache (principal)
CPT/HCPCS: 70450

== ENCOUNTER → 2019-05-18 13:58 | Outpatient (CLI) | payer MEDICARE, OTHER, SELFPAY ==
[2019-05-18 14:17] LABS: Basophils # 0.1 K/mm3 (0-0.2); Basophils % 0.8 % (0.1-2.0); Eosinophils # 0.1 K/mm3 (0.0-0.4); Eosinophils % 1.6 % (0.1-12.0); Hemoglobin 8.7 g/dL (12.2-16.2); Lymphocytes # 1.6 K/mm3 (0.7-4.5); Lymphocytes % 20.4 % (10-50); Mean Corpuscular HGB Conc 29.9 g/dL (31.8-35.4); Mean Corpuscular Hemoglobin 26.7 pg (27.0-31.2); Mean Corpuscular Volume 89.2 fl (81-99); Mean Platelet Volume 7.9 fl (7.4-10.4); Monocytes # 0.4 K/mm3 (0.1-1.0); Monocytes % 5.5 % (1.7-9.3); Neutrophils # 5.7 K/mm3 (1.8-7.8); Neutrophils % 71.7 % (37.0-80.0); Platelet Count 393 K/mm3 (142-424); Red Blood Count 3.25 M/mm3 (4.20-5.40); Red Cell Distribution Width 16.4 % (11.5-17.5)
[2019-05-18 16:29] LABS: Chloride 102 mmol/L (98-107); Potassium 4.1 mmoL/L (3.5-5.1); Sodium 134 mmol/L (136-145)
[2019-05-18 16:32] LABS: Alanine Aminotransferase 11 U/L (12-78); Albumin Level 3.3 g/dl (3.5-5.0); Albumin/Globulin Ratio 1.2 (1.1-1.8); Alkaline Phosphatase 83 U/L (38-126); Aspartate Amino Transferase 14 U/L (14-36); Bilirubin,Total 0.1 mg/dl (0.2-1.3); Blood Urea Nitrogen 15 mg/dl (7-17); Carbon Dioxide 21 mmol/L (22.0-30.0); Cholesterol 127 mg/dl (140-200); Estimated Glomerular Filt Rate 71 ml/min (>60); GFR (African American) 86 ML/MIN (>60); Globulin 2.7 g/dL (1.3-3.2); Glucose 260 mg/dl (74-100); Hemoglobin A1C 8.4 % (4.0-6.0); Triglycerides 258 mg/dl (30-150); VLDL Cholesterol 52 mg/dL (0-40)
[2019-05-18 16:33] LABS: Chol/HDL Ratio 3.6 (1-3.5); HDL Cholesterol 35 mg/dl (40-60)
[2019-05-18 16:35] LABS: Anion Gap 15.1 mEq/L (5-15)
[2019-05-18 16:44] LABS: Direct LDL Cholesterol 62.21 mg/dL (100-129)
== END ==
PROVIDERS: Visit Provider Internal Medicine Adolescent Medicine
DX: M06.9 Rheumatoid arthritis, unspecified (principal); I63.9 Cerebral infarction, unspecified; I11.9 Hypertensive heart disease without heart failure; Z79.4 Long term (current) use of insulin; Z79.84 Long term (current) use of oral hypoglycemic drugs
CPT/HCPCS: 80053; 80061; 83036; 85025

== ENCOUNTER → 2019-08-27 14:39 | Outpatient (POV) | payer MEDICARE, OTHER, SELFPAY | PROVIDERS: Visit Provider Nurse Practitioner Family | DX: Z00.00 Encounter for general adult medical examination without abnormal findings (principal) ==

== ENCOUNTER → 2019-09-05 14:53 | Outpatient (CLI) | payer MEDICARE, OTHER, SELFPAY ==
[2019-09-05 18:05] LABS: Alanine Aminotransferase 13 U/L (12-78); Albumin Level 3.4 g/dl (3.5-5.0); Albumin/Globulin Ratio 1.1 (1.1-1.8); Alkaline Phosphatase 109 U/L (38-126); Anion Gap 16.5 mEq/L (5-15); Aspartate Amino Transferase 16 U/L (14-36); Blood Urea Nitrogen 11 mg/dl (7-17); Calcium 8.7 mg/dl (8.4-10.2); Carbon Dioxide 21 mmol/L (22.0-30.0); Chloride 104 mmol/L (98-107); Estimated Glomerular Filt Rate 99 ml/min (>60); GFR (African American) 120 ML/MIN (>60); Glucose 265 mg/dl (74-100); Potassium 4.5 mmoL/L (3.5-5.1); Sodium 137 mmol/L (136-145); Total Protein,Serum 6.4 g/dl (6.3-8.2)
[2019-09-05 18:12] LABS: Bilirubin,Total 0.1 mg/dl (0.2-1.3)
== END ==
PROVIDERS: Visit Provider Internal Medicine Adolescent Medicine
DX: E11.9 Type 2 diabetes mellitus without complications (principal); Z79.84 Long term (current) use of oral hypoglycemic drugs
CPT/HCPCS: 80053; 83036

== ENCOUNTER → 2019-11-01 16:37 | Outpatient (CLI) | payer MEDICARE, OTHER, SELFPAY ==
[2019-11-01 17:14] LABS: Basophils # 0.1 K/mm3 (0-0.2); Basophils % 1.3 % (0.1-2.0); Eosinophils # 0.2 K/mm3 (0.0-0.4); Eosinophils % 2.8 % (0.1-12.0); Hematocrit 35.8 % (37.0-47.0); Hemoglobin 10.7 g/dL (12.2-16.2); Lymphocytes # 2.1 K/mm3 (0.7-4.5); Lymphocytes % 25.9 % (10-50); Mean Corpuscular HGB Conc 30.1 g/dL (31.8-35.4); Mean Corpuscular Hemoglobin 26.2 pg (27.0-31.2); Mean Corpuscular Volume 87.2 fl (81-99); Mean Platelet Volume 7.2 fl (7.4-10.4); Monocytes # 0.6 K/mm3 (0.1-1.0); Monocytes % 6.9 % (1.7-9.3); Neutrophils # 5.2 K/mm3 (1.8-7.8); Platelet Count 402 K/mm3 (142-424); Red Cell Distribution Width 18.9 % (11.5-17.5); White Blood Count 8.2 K/mm3 (4.8-10.8)
[2019-11-01 17:29] LABS: Alanine Aminotransferase 10 U/L (12-78); Albumin Level 3.5 g/dl (3.5-5.0); Albumin/Globulin Ratio 1.2 (1.1-1.8); Alkaline Phosphatase 103 U/L (38-126); Anion Gap 12.8 mEq/L (5-15); Aspartate Amino Transferase 15 U/L (14-36); Bilirubin,Total 0.2 mg/dl (0.2-1.3); Blood Urea Nitrogen 13 mg/dl (7-17); Calcium 9.1 mg/dl (8.4-10.2); Carbon Dioxide 22 mmol/L (22.0-30.0); Chloride 107 mmol/L (98-107); Chol/HDL Ratio 3.8 (1-3.5); Cholesterol 159 mg/dl (140-200); Estimated Glomerular Filt Rate 83 ml/min (>60); GFR (African American) 100 ML/MIN (>60); Globulin 2.9 g/dL (1.3-3.2); Glucose 221 mg/dl (74-100); HDL Cholesterol 42 mg/dl (40-60); Potassium 4.8 mmoL/L (3.5-5.1); Sodium 137 mmol/L (136-145); Total Protein,Serum 6.4 g/dl (6.3-8.2); Triglycerides 300 mg/dl (30-150); VLDL Cholesterol 60 mg/dL (0-40)
[2019-11-01 17:41] LABS: Direct LDL Cholesterol 83.35 mg/dL (100-129)
[2019-11-01 18:20] LABS: Vitamin B12 263 pg/mL (239-931)
== END ==
PROVIDERS: Visit Provider Internal Medicine Adolescent Medicine
DX: E53.8 Deficiency of other specified B group vitamins (principal); M06.9 Rheumatoid arthritis, unspecified
CPT/HCPCS: 36415; 80053; 80061; 82607; 85025

== ENCOUNTER → 2019-11-15 15:37 | Outpatient (CLI) | payer MEDICARE, OTHER, SELFPAY ==
--- NOTE | 2019-11-15 15:40 | MM_ITS ---
PROCEDURE: MM DIG SCREENING MAMM BI W/CAD Digital Breast Tomosynthesis Included CLINICAL INDICATION: ROUTINE MEDICAL EXAM There is no personal or family history of breast cancer. The study was performed with the patient in her wheelchair, she is 1 year post CVA with limited mobility making it difficult to obtain adequate MLO views COMPARISON: MG DMSB DIGITAL MAMM-SCREEN BILATERAL from 10/22/2010 MG DMSB DIG MAMM-SCREEN PATEL from 01/28/2014 MG DMSB DIG MAMM-SCREEN PATEL W/CAD from 12/30/2016 TECHNIQUE: Standard CC and MLO images and 3D Tomosynthesis was obtained. R2 CAD reviewed. FINDINGS: Mild to moderate scattered fibroglandular densities are seen throughout both breasts. There are few benign-appearing microcalcifications in each breast. There is a small area of possible architectural distortion upper outer quadrant left breast representing a change from the most recent exam 12/30/2016. Recommend the patient return for spot compression views and ultrasound of the area marked on the current exam. There are no suspicious microcalcifications. IMPRESSION: Fibrofatty parenchyma with possible architectural distortion upper-outer quadrant left breast BI-RAD Category: 0 Need Additional Imaging Evaluation FOLLOW-UP: IMM Immediate Follow-up Recommended (A letter has been sent to the patient regarding results of the study.) Dictated by: Dr. Ad Song MD 11/22/2019 21:10 Dr. Ad Song MD in [place] 11/22/2019 21:10
== END ==
PROVIDERS: PCP Internal Medicine Adolescent Medicine; Visit Provider Internal Medicine Adolescent Medicine
DX: Z12.31 Encounter for screening mammogram for malignant neoplasm of breast (principal)
CPT/HCPCS: 77063; 77067

== ENCOUNTER → 2019-12-13 13:56 | Outpatient (CLI) | payer MEDICARE, OTHER, SELFPAY ==
--- NOTE | 2019-12-13 13:59 | MM_ITS ---
PROCEDURE: MM DIG MAMM DX UNILAT LT CAD Digital Breast Tomosynthesis Included CLINICAL INDICATION: ABN MAMM OF LT BREAST COMPARISON: MG DMSB DIG MAMM-SCREEN PATEL from 01/28/2014 MG DMSB DIG MAMM-SCREEN PATEL W/CAD from 12/30/2016 MG MM DIG SCREENING MAMM BI W/CAD from 11/15/2019 US US BREAST LT COMPLETE from 12/13/2019 TECHNIQUE: Standard CC and MLO images and 3D Tomosynthesis was obtained. R2 CAD reviewed. FINDINGS: The area of possible architectural distortion upper-outer quadrant appears to dissipate somewhat on spot compression views. Ultrasound examination performed the same date shows no abnormality at this location. This lessens concern of this possible lesion but I would recommend the patient return for 5-6 month follow-up diagnostic mammogram to evaluate for interval stability. IMPRESSION: Possible architectural distortion left breast, see discussion above BI-RAD Category: 3 Probably Benign Finding Short Term Follow-up FOLLOW-UP: Mammogram 5-6 months (A letter has been sent to the patient regarding results of the study.) Dictated by: Dr. Ad Song MD 12/19/2019 10:39 Dr. Ad Song MD in [place] 12/19/2019 10:39
--- NOTE | 2019-12-13 14:00 | US_ITS ---
PROCEDURE: US BREAST LT COMPLETE CLINICAL INDICATION: ABN MAMM OF LT BREAST COMPARISON: No exams were available for comparison FINDINGS: Ultrasound examination reveals no suspicious cystic or solid lesion findings of architectural distortion in the area of clinical interest. There is a normal appearing node in the axilla. IMPRESSION: No ultrasound confirmation of suspected area of architectural distortion, see mammogram report for recommendation Dictated by: Dr. Ad Song MD 12/19/2019 10:41 Dr. Ad Song MD in [place] 12/19/2019 10:41
== END ==
PROVIDERS: PCP Internal Medicine Adolescent Medicine; Visit Provider Internal Medicine Adolescent Medicine
DX: R92.8 Other abnormal and inconclusive findings on diagnostic imaging of breast (principal)
CPT/HCPCS: 76641; 77061; 77065; G0279

== ENCOUNTER 2019-12-18 06:49 | Inpatient (IN) | payer MEDICARE, OTHER, SELFPAY ==
[2019-12-18] VITALS (16 sets, daily range): BP systolic 104–247; BP diastolic 51–127; PULSE 63–100; RESP 17–20; TEMP 36.6–36.9; O2SAT 92–99; BMI 34.3; BMI 39.6; BMI 29.4
[2019-12-18 07:04] LABS: POC Glucose,Bedside 311 (70-110)
--- NOTE | 2019-12-18 07:07 | XR_ITS ---
PROCEDURE: XR CHEST PORTABLE CLINICAL HISTORY: ams Pain COMPARISON: CR [id number] XR ribs LT min 3V w CXR1V from 07/20/2017 CR [id number] XR ribs RT min 3V w CXR1V from 07/20/[address] chest w con from 01/31/2018 CR XR CHEST AP from 11/27/2018 FINDINGS: Cardiomegaly without failure. Stabilizing connecting rods are present in the lower thoracic spine with inter pedicular screws as before. The lungs are clear without infiltrates, suspicious nodules, or pleural effusions. Degenerative changes of the shoulders. Surgical clips are present in the left neck IMPRESSION: As above, no change with no acute finding Dictated by: Byron Vazquez MD 12/18/2019 08:59 Byron Vazquez MD in [place] 12/18/2019 08:59
--- NOTE | 2019-12-18 07:07 | CT_ITS ---
PROCEDURE: CT HEAD/BRAIN WO CON CLINICAL INDICATION: ams Altered mental status, altered level of consciousness, confusion, disorientation COMPARISON: CT CT HEAD/BRAIN WO CON from 03/12/2019 TECHNIQUE: Axial images obtained. All CT scans at the facility use one or more dose reduction, viz: automated exposure control, ma/kV adjustment per patient size (including targeted exams where dose is matched to indication, i.e. head), or iterative reconstruction technique. FINDINGS: No midline shift, mass effect, intracranial hemorrhage, hydrocephalus, or extra-axial fluid collection is evident. There is generalized atrophy with hypoattenuation of the periventricular white matter consistent with microangiopathic changes. There is an old lacunar infarction in the left the lamina region. The calvarium has an unremarkable appearance. No mastoid effusion. No sinus air-fluid level. IMPRESSION: No acute intracranial finding Dictated by: Byron Vazquez MD 12/18/2019 09:13 Byron Vazquez MD in [place] 12/18/2019 09:13
--- NOTE | 2019-12-18 07:07 | XR_ITS ---
PROCEDURE: XR PELVIS 1-2V CLINICAL INDICATION: ams Pain COMPARISON: CR [id number] HIP LT 2-3V W/PELVIS IF PERFOR from 04/22/2016 CR [id number] XR hip LT 2-3V w/pelvis from 07/20/2017 TECHNIQUE: XR Pelvis AP View FINDINGS: Status post total left hip prosthesis placement with good position. Mild osteoarthritic change right hip. Status post extensive lumbosacral surgery with inter pedicular screws at L3-L4 L5 and L1 and within the sacrum on both sides. Prominent lucency noted around the sacral screws similar to previous exam. Interconnecting rods are present. Bony hypertrophy from the fusion at the lower lumbar spine once again noted. Fletcher catheter is present. IMPRESSION: Postsurgical changes as described above. Prominent lucencies around the sacral screws suggesting chronic loosening. Overall no significant change Dictated by: Byron Vazquez MD 12/18/2019 08:58 Byron Vazquez MD in [place] 12/18/2019 08:58
--- NOTE | 2019-12-18 07:18 | PC.NURSE ---
pt to CT
[2019-12-18 07:24] LABS: Chloride 106 mmol/L (98-107)
[2019-12-18 07:25] LABS: Potassium 4.3 mmoL/L (3.5-5.1); Sodium 138 mmol/L (136-145)
[2019-12-18 07:27] LABS: Alanine Aminotransferase 14 U/L (12-78); Aspartate Amino Transferase 24 U/L (14-36); Basophils # 0.1 K/mm3 (0-0.2); Basophils % 1.3 % (0.1-2.0); Blood Urea Nitrogen 14 mg/dl (7-17); Creatinine Clearance Estimated 78 mL/min (50-200); Eosinophils # 0.2 K/mm3 (0.0-0.4); Eosinophils % 1.8 % (0.1-12.0); Estimated Glomerular Filt Rate 99 ml/min (>60); GFR (African American) 119 ML/MIN (>60); Hematocrit 43.2 % (37.0-47.0); Hemoglobin 13.1 g/dL (12.2-16.2); Lymphocytes % 22.1 % (10-50); Mean Corpuscular HGB Conc 30.3 g/dL (31.8-35.4); Mean Corpuscular Hemoglobin 27.2 pg (27.0-31.2); Mean Corpuscular Volume 89.6 fl (81-99); Mean Platelet Volume 7.4 fl (7.4-10.4); Monocytes # 0.6 K/mm3 (0.1-1.0); Neutrophils # 6.3 K/mm3 (1.8-7.8); Neutrophils % 68.8 % (37.0-80.0); Platelet Count 407 K/mm3 (142-424); Red Blood Count 4.82 M/mm3 (4.20-5.40); Red Cell Distribution Width 18.5 % (11.5-17.5); White Blood Count 9.1 K/mm3 (4.8-10.8)
[2019-12-18 07:28] LABS: Albumin Level 4.1 g/dl (3.5-5.0); Albumin/Globulin Ratio 1.1 (1.1-1.8); Alkaline Phosphatase 115 U/L (38-126); Anion Gap 13.3 mEq/L (5-15); Bilirubin,Total 0.4 mg/dl (0.2-1.3); Calcium 9.4 mg/dl (8.4-10.2); Carbon Dioxide 23 mmol/L (22.0-30.0); Globulin 3.6 g/dL (1.3-3.2); Glucose 322 mg/dl (74-100); Total Protein,Serum 7.7 g/dl (6.3-8.2)
[2019-12-18 07:40] LABS: Microscopic, Urine URINE MICROSCOPIC (MICROSCOPIC)
[2019-12-18 07:41] LABS: Troponin I < 0.01 ng/ml (0.00-0.034)
[2019-12-18 07:42] LABS: Appearance,Urine CLEAR (Clear); Bilirubin,Urine Negative (Negative); Blood, Urine Negative (Negative); Color,Urine YELLOW (Yellow); Glucose,Urine (UA) 2+ (Negative); Ketones,Urine TRACE (Negative); Leukocyte Esterase,Urine Negative (Negative); Nitrate,Urine Negative (Negative); PH,Urine 7.5 (5.0-8.5); Protein,Urine 1+ (Negative); Specific Gravity, Urine 1.015 (1.005-1.030)
--- NOTE | 2019-12-18 07:43 | PC.NURSE ---
pt return from CT notified RT pt is back in their room, abg is ordered
--- NOTE | 2019-12-18 07:47 | ECG_ITS ---
APPROVED REPORT Exam: Resting ECG HR:62 bpm ECG Measurements Heart Rate 62 AXES [place] 136 P QRSd 74 QRS -13 QT 406 T 162 QTc 412 Conclusion Normal sinus rhythm ST & T wave abnormality, consider anterolateral ischemia Incomplete RBBB Abnormal ECG Electronically signed by : Blair Roblero, 12/21/2019 11:29:54
[2019-12-18 07:49] LABS: RBC,Urine Occasional #/hpf (0-3)
[2019-12-18 07:53] LABS: Amphetamine/Metha Screen,Urine Negative ng/ml (<1000); Benzodiazepines Screen,Urine Negative ng/ml (<200)
[2019-12-18 07:54] LABS: Barbiturates Screen,Urine Negative ng/ml (<200)
[2019-12-18 07:55] LABS: Cannabinoid Screen,Urine Negative ng/ml (<50); Cocaine Screen,Urine Negative ng/ml (<300)
[2019-12-18 07:56] LABS: Methadone Screen,Urine Negative ng/ml (<300)
[2019-12-18 07:57] LABS: Opiate Screen,Urine Negative ng/ml (<300); Phencyclidine Screen,Urine Negative ng/ml (<25)
[2019-12-18 08:10] LABS: ABG Base Excess -3.1 mmol/L (-2.4-2.3); ABG HCO3 21.6 mmhg (22.0-26.0); ABG Oxygen Saturation 94 % (90-100); ABG PCO2 34.9 mmhg (35.0-45.0); ABG PH 7.41 mmol/L (7.35-7.45); ABG PO2 84.6 mmhg (80-100); ABG TCO2 22.6 mmhg (23-27)
[2019-12-18 08:11] LABS: Oxygen ROOM AIR %; Source L BRACHIAL
--- NOTE | 2019-12-18 08:17 | HMH.EDGENADL ---
ED Disposition Clinical Impression: Hypertensive urgency, COVID-19 virus IgG antibody detected, COVID-19 virus IgM antibody detected AMS (altered mental status) Qualifiers: Altered mental status type: unspecified Qualified Code(s): R41.82 - Altered mental status, unspecified Disposition: Admitted as Observation Condition on Discharge: Serious - Critical Care Critical Care Time: Yes Attestation: On 12/18/19, the high probability of a clinically significant, sudden or life threatening deterioration of the following system(s) required my full and direct attention, intervention and personal management. The time I documented below is in addition to time spent performing reported procedures but includes the following listed in this critical care notation. Total Critical Care Time: 30 Vital system(s) involved:: Circulatory Failure My critical care processes included: Assessment & monitoring of V/S, Initial and Re-exams, Data Review/Interpretation, Coordinating Care, Medication Orders and management, Documentation Medical Decision Making - Medical Records Medical records reviewed: Yes: I reviewed the patient's medical records. - Lm Inquiry Pt receiving controlled substance: No Vital Signs: 12/18/19 07:05 12/18/19 08:06 12/18/19 08:37 Temperature 98.4 F Temperature Source Rectal Pulse Rate Pulse Rate [Right Brachial] 79 81 Respiratory Rate 18 18 Blood Pressure 205/116 H Blood Pressure [Right Arm] 209/108 H 210/110 H Blood Pressure Mean [Right Arm] 141 143 Blood Pressure Source [Right Arm] Automatic Cuff Blood Pressure Position [Right Arm] Sitting Sitting 02 Sat by Pulse Oximetry 97 95 Oxygen Delivery Method Room Air 12/18/19 09:04 12/18/19 09:30 12/18/19 10:01 Temperature Temperature Source Pulse Rate Pulse Rate [Right Brachial] 77 63 Respiratory Rate 18 Blood Pressure 196/63 H Blood Pressure [Right Arm] 192/127 H 156/71 H Blood Pressure Mean [Right Arm] 148 99 Blood Pressure Source [Right Arm] Blood Pressure Position [Right Arm] Sitting 02 Sat by Pulse Oximetry 94 L Oxygen Delivery Method 12/18/19 10:34 12/18/19 11:30 12/18/19 12:37 Temperature Temperature Source Pulse Rate Pulse Rate [Right Brachial] 81 78 82 Respiratory Rate 18 20 18 Blood Pressure Blood Pressure [Right Arm] 178/123 H 230/76 H 247/114 H Blood Pressure Mean [Right Arm] 141 127 158 Blood Pressure Source [Right Arm] Automatic Cuff Blood Pressure Position [Right Arm] Sitting Sitting Supine 02 Sat by Pulse Oximetry 96 97 94 L Oxygen Delivery Method Room Air Room Air Room Air 12/18/19 12:38 12/18/19 13:00 12/18/19 13:22 Temperature Temperature Source Pulse Rate Pulse Rate [Right Brachial] 93 H Respiratory Rate 20 Blood Pressure 247/114 H Blood Pressure [Right Arm] 215/108 H Blood Pressure Mean [Right Arm] 143 Blood Pressure Source [Right Arm] Blood Pressure Position [Right Arm] 02 Sat by Pulse Oximetry 95 Oxygen Delivery Method Room Air 12/18/19 13:28 Temperature 98.2 F Temperature Source Oral Pulse Rate 78 Pulse Rate [Right Brachial] Respiratory Rate 17 Blood Pressure 215/95 H Blood Pressure [Right Arm] Blood Pressure Mean [Right Arm] Blood Pressure Source [Right Arm] Blood Pressure Position [Right Arm] 02 Sat by Pulse Oximetry Oxygen Delivery Method Room Air - Lab Data Lab results reviewed: Yes: I reviewed the patient's lab results. Lab Results 12/18/19 06:56: POC Glucose 311 H* 12/18/19 07:00: WBC 9.1, RBC 4.82, Hgb 13.1, Hct 43.2, MCV 89.6, MCH 27.2, MCHC 30.3 L, RDW 18.5 H, Plt Count 407, MPV 7.4, Neut % (Auto) 68.8, Lymph % (Auto) 22.1, [place] % (Auto) 6.0, Eos % (Auto) 1.8, Baso % (Auto) 1.3, Neut # (Auto) 6.3, Lymph # (Auto) 2.0, [place] # (Auto) 0.6, Eos # (Auto) 0.2, Baso # (Auto) 0.1 12/18/19 07:00: Sodium 138, Potassium 4.3, Chloride 106, Carbon Dioxide 23, Anion Gap 13.3, BUN 14, Creatinine 0.60, Estimated Cre
[2019-12-18 09:20] LABS: Coronavirus 19 IgG Antibody Positive (Negative)
[2019-12-18 09:21] LABS: Coronavirus 19 IgM Antibody Positive (Negative)
--- NOTE | 2019-12-18 09:27 | PC.NURSE ---
waiting stock and station agent back from Dr. Robertson, office staff states he is unavailable
[2019-12-18 09:30] LABS: Adenovirus,PCR Not Detected (NotDetected); Bordetella Pertussis Not Detected (NotDetected); Chlamydophila Pneumoniae, PCR Not Detected (NotDetected); Coronavirus 19, PCR Not Detected (NotDetected); Coronavirus 229E Not Detected (NotDetected); Coronavirus NL63 Not Detected (NotDetected); Coronavirus OC43 Not Detected (NotDetected); Coronovirus HKU1,PCR Not Detected (NotDetected); Human Metapneumovirus Not Detected (NotDetected); Influenza A, PCR Not Detected (NotDetected); Influenza AH1, 2009 Not Detected (NotDetected); Influenza AH1, PCR Not Detected (NotDetected); Influenza AH3,PCR Not Detected (NotDetected); Influenza B, PCR Not Detected (NotDetected); Mycoplasma Pneumoniae, PCR Not Detected (NotDetected); Parainfluenza 1, PCR Not Detected (NotDetected); Parainfluenza 2, PCR Not Detected (NotDetected); Parainfluenza 3, PCR Not Detected (NotDetected); Parainfluenza 4, PCR Not Detected (NotDetected); Respiratory Syncytial Virus Not Detected (NotDetected); Rhinovirus/Enterovirus Not Detected (NotDetected)
--- NOTE | 2019-12-18 09:30 | PC.NURSE ---
patient pale, diaphoretic and cool to touch. pt is awake and responds to verbal stimuli as per normal status per . fsbs checked. see results. no needs at this time.
[2019-12-18 09:32] LABS: POC Glucose,Bedside 288 (70-110)
[2019-12-18 09:52] LABS: Lactic Acid 1.4 mmol/L (0.7-2.1)
--- NOTE | 2019-12-18 09:58 | PC.NURSE ---
DR WILCOX CONSULTING WITH DR TAFOYA FOR POSSIBLE ADMIT
--- NOTE | 2019-12-18 10:07 | PC.NURSE ---
notified care management of admission, spoke with
[2019-12-18 10:48] LABS: Troponin I < 0.01 ng/ml (0.00-0.034)
--- NOTE | 2019-12-18 11:30 | PC.NURSE ---
spoke with [facility] pharmacy in order to attempt to reconcile home medications. cary states that patient gets meds filled at multiple different pharmacies and only few meds there. dr magaña notified.
--- NOTE | 2019-12-18 13:00 | PC.NURSE ---
pt repositioned in bed for comfort and pressure relief. stage 1 redness noted to coccyx area. pt tolerated well.
--- NOTE | 2019-12-18 13:18 | PC.NURSE ---
patient medicated for pain due to moaning and c/o back pain. brett thurston at bedside for bedside nurse report.
--- NOTE | 2019-12-18 13:19 | PC.NURSE ---
bp improved with labetalol dosage. dr magaña aware, states It will be up to dr randolph to get her home meds reconciled. spoke with Aline, pharmacy to obtain exact home medications and dosages for bp managemen and she is working on it now. pt up to room by ila.
--- NOTE | 2019-12-18 13:49 | HMH.PHAINT ---
MEDICATION RECONCILIATION COMPLETED ON PATIENT USING EXTERNAL FILL HISTORY FROM PHARMACY AND LIST FROM MD OFFICE. -ESTEFANY FERRISD
--- NOTE | 2019-12-18 14:08 | P.CONPHA_ITS ---
[facility] Pharmacy VTE Monitoring - Patient Demographics Admission date: 12/18/19 Report Date: 12/18/19 Time: 14:08 Allergies/Adverse Reactions: Patient Allergies cefuroxime [From CEFTIN] Allergy (Mild, Verified 11/27/19 15:31) Height: 1.63 m Weight: 77.678 kg Patient Problems: Current Active Problems AMS (altered mental status) (Acute) Hypertensive urgency (Acute) COVID-19 virus IgG antibody detected (Acute) COVID-19 virus IgM antibody detected (Acute) - VTE Risk Labs: VTE Related Lab Results Hgb 13.1 g/dL (12.2-16.2) 12/18/19 07:00 Hct 43.2 % (37.0-47.0) 12/18/19 07:00 Plt Count 407 K/mm3 (142-424) 12/18/19 07:00 BUN 14 mg/dl (7-17) 12/18/19 07:00 Creatinine 0.60 mg/dl (0.52-1.04) 12/18/19 07:00 Estimated Creat Clear 78 mL/min (50-200) 12/18/19 07:00 - Prophylaxis VTE Prophylaxis Ordered?: Yes Types of VTE Prophylaxis: TEDS Knee High Location of Applied Device: Bilateral Lower Extremeties
[2019-12-18 14:34] LABS: Troponin I < 0.01 ng/ml (0.00-0.034)
--- NOTE | 2019-12-18 15:18 | PC.NURSE ---
small area of skin breakdown. measured at 1 cm long and 2cm wide. no drainage noted. this rn placed a cocyyx bandage.
--- NOTE | 2019-12-18 16:50 | HMH.HP ---
*Admission Date: 12/18/19 *Chief complaint: AMS, pain, HTN *History of present illness: Ms. Agosto is a 69-year-old female with complex past medical history consisting of chronic pain, history of CVA, severe debility, and dependent on her for majority of ADLs. Other history with chronic conditions per note. She presented to the ER today with her due to waxing and waning irritability, confusion, episodes of pain not responsive to therapy. Her states that she was at her baseline level of function until following up with her pain clinic the end of the week last week. Over the weekend she had difficulty getting comfortable, would scream and thrash about. This was causing significant stress on him and worry. He was no longer able to care for her in the home setting and worried that something more significant was wrong. Brought her to the ER for further assessment. On arrival she was noted to have severe hypertension with blood pressure systolics greater than 200. Additionally had episodes of complaining of hurting all over and then would calm and denies any pain. Work-up with imaging, labs positive for chronic degenerative changes in her back. Labs otherwise at baseline. Blood pressure poorly responsive to treatment in the ER necessitating admission for hypertensive urgency/malignant hypertension with the setting of history of stroke. On assessment this afternoon, at bedside stating she was doing somewhat better. Patient had no complaints. Denied any chest pain, shortness of breath, abdominal pain, leg pain. Had eaten dinner without difficulty. Was lying comfortably supine in bed watching westerns . Was afebrile and stable on room air. Pleasantly confused that she thought she was at her pain clinic but knew her was with us. Blood pressure improved to 160s/90s. Extensive discussion with about goals of care with patient, baseline level of function, and is comfort with caring for her at home. States that as long as she is at her current level of function and alertness, he is comfortable with her at home. Does admit however over the weekend she was more than he could handle and about to break him [facility] History I have reviewed the patient's past medical history: Yes Medical History: Reports:: Anxiety, Carotid Stenosis, Depression, Diabetes Mellitus Type 2, Gastroesophageal Reflux Disease(GERD), Hyperlipidemia, Hypertension, Peripheral Artery Disease Denies:: Cancer, Diabetes Mellitus Type 1, Internal Pacemaker, Lung Disease, MRSA, Seizures *Have you ever received a pneumonia vaccine?: No *Have you received a flu vaccine this season?: Yes Other Medical History: Reports: Arthritis, Other. Denies: Blood Transfusion Reaction Laterality Cases: Left: Total Hip Replacement Other Surgeries: Yes: Cardiac Surgery, Colonoscopy, Hysterectomy-Partial, Tubal Ligation, Other (CEA, back fusion). No: Pacemaker Amputation: No Fractures: No - *Social History Smoking Status: Current every day smoker Tobacco Type: cigarettes # Packs/Day (cigarettes): 10 Alcohol Intake: never Alcohol Intake Frequency:: other Substance Use Type: denies use *Occupational Status:: disabled Housing: house Household Members: spouse *Travel in the last 8 weeks: None - Psychiatric History Pschychiatric History:: Reports:: Anxiety, Depression Family Hx:: Hyperlipidemia, Hypertension Review of Systems - Review of Systems Review of systems:: pertinent systems reviewed and negative unless documented below (14 point review of systems performed, pertinent positives and negatives as per HPI) - *Neurologic Denies confusion, Denies localized weakness, Denies headache(s) Meds Home Medications Medication Instructions Recorded Confirmed Type alendronate 70 mg tablet 70 mg PO WEEKLY 84 Days 04/25/17 12/18/19 History clopidogrel 75 mg tablet 75 mg PO DAILY 90 Days 04/25/17 12/18/19 History leflunomide 10 mg tablet 10 mg PO DAILY 30 Days
[2019-12-18 17:07] LABS: POC Glucose,Bedside 297 (70-110)
[2019-12-18 21:55] LABS: POC Glucose,Bedside 229 (70-110)
[2019-12-19] VITALS (8 sets, daily range): BP systolic 95–177; BP diastolic 59–77; PULSE 60–83; RESP 16–20; TEMP 36.2–36.7; O2SAT 92–93; BMI 29.2; BMI 28.5
--- NOTE | 2019-12-19 03:16 | PC.NURSE ---
Pt is currently resting in bed. Pt was very restless at the beginning of shift, screaming out but when staff entered the room she would stop and state that Nothing is wrong, I just dont want you to leave me. Pt is A&O x2 (name and birthday). Pt's lung sounds remain diminished t/o per auscultation. Fletcher cath remains intact, no kinks noted and properly secured. Fletcher is draining clear, dark yellow urine per gravity. Pt has remained afebrile this shift and VSS, but pt continues to be diaphoretic t/o the night requiring bed changes. 20g PIV in LAC remains patent and intact with NS infusing @ 50mL/hr. Call light remains in reach. No other acute changes or complaints at this time. Will continue to monitor.
[2019-12-19 06:27] LABS: POC Glucose,Bedside 240 (70-110)
[2019-12-19 06:59] LABS: Basophils # 0.1 K/mm3 (0-0.2); Basophils % 1.2 % (0.1-2.0); Eosinophils # 0.1 K/mm3 (0.0-0.4); Eosinophils % 1.5 % (0.1-12.0); Hemoglobin 12.3 g/dL (12.2-16.2); Lymphocytes # 1.8 K/mm3 (0.7-4.5); Lymphocytes % 21.6 % (10-50); Mean Corpuscular HGB Conc 30.1 g/dL (31.8-35.4); Mean Corpuscular Hemoglobin 26.7 pg (27.0-31.2); Mean Corpuscular Volume 88.7 fl (81-99); Mean Platelet Volume 7.7 fl (7.4-10.4); Monocytes # 0.5 K/mm3 (0.1-1.0); Monocytes % 6.2 % (1.7-9.3); Neutrophils # 5.7 K/mm3 (1.8-7.8); Neutrophils % 69.5 % (37.0-80.0); Platelet Count 391 K/mm3 (142-424); Red Blood Count 4.62 M/mm3 (4.20-5.40); Red Cell Distribution Width 18.3 % (11.5-17.5); White Blood Count 8.2 K/mm3 (4.8-10.8)
[2019-12-19 07:04] LABS: Chloride 104 mmol/L (98-107); Sodium 135 mmol/L (136-145)
[2019-12-19 07:07] LABS: Blood Urea Nitrogen 15 mg/dl (7-17); Calcium 8.9 mg/dl (8.4-10.2); Carbon Dioxide 22 mmol/L (22.0-30.0); Creatinine Clearance Estimated 63 mL/min (50-200); Estimated Glomerular Filt Rate 122 ml/min (>60); GFR (African American) 147 ML/MIN (>60); Glucose 228 mg/dl (74-100)
--- NOTE | 2019-12-19 07:41 | CT_ITS ---
PROCEDURE: CT HEAD/BRAIN W CON CLINICAL INDICATION: MS changes, CVA Altered mental status, altered level of consciousness, confusion, disorientation COMPARISON: CT CT HEAD/BRAIN WO CON from 12/18/2019 TECHNIQUE: IV Contrast: 100ML OPITRAY 320 Axial images obtained. All CT scans at the facility use one or more dose reduction, viz: automated exposure control, ma/kV adjustment per patient size (including targeted exams where dose is matched to indication, i.e. head), or iterative reconstruction technique. FINDINGS: No midline shift, mass effect, intracranial hemorrhage, hydrocephalus, or extra-axial fluid collection is evident. There is generalized atrophy with hypoattenuation of the periventricular white matter consistent with microangiopathic changes.. There are old bilateral lacunar infarctions of the basal ganglia and right subinsular region. No enhancing lesions are evident. The calvarium has an unremarkable appearance. No mastoid effusion no sinus air-fluid level IMPRESSION: 1. No acute intracranial findings with no significant change from 12/18/2019 2. Atrophy with chronic ischemic changes Dictated by: Bryon Vazquez MD 12/19/2019 09:32 Byron Vazquez MD in [facility] 12/19/2019 09:32
--- NOTE | 2019-12-19 07:43 | HMH.ACPN2 ---
Internal Medicine - PN: Subj *Date: 12/19/19 *Time: 07:43 Interval history: Overnight patient did well, but her is extremely concerned about her ability to go home with him taking care of her by himself. I completely agree with this assessment. Exam Vital signs and Labs for Last 24 Hours: Temp Pulse Resp BP Pulse Ox 98.1 F 75 18 95/71 L 92 L 12/19/19 04:00 12/19/19 04:00 12/19/19 00:00 12/19/19 04:00 12/19/19 04:00 Laboratory Results - last 24 hr 12/18/19 07:00: Urine Opiates Screen Negative, Urine Methadone Screen Negative, Ur Barbituates Screen Negative, Ur Phencyclidine Scrn Negative, Ur Amphetamines Screen Negative, U Benzodiazepines Scrn Negative, Urine Cocaine Screen Negative, U Marijuana (THC) Screen Negative 12/18/19 07:00: Urine RBC Occasional, Urine WBC 3-5, Ur Squamous Epith Cells 3-5 12/18/19 07:00: SARS-CoV-2 IgG Ab (Rapid) Positive A, SARS-CoV-2 IgM Ab (Rapid) Positive A 12/18/19 08:06: Specimen Source L brachial, O2 % Room air, ABG pH 7.41, ABG pCO2 34.9 L, ABG pO2 84.6, ABG HCO3 21.6 L, ABG Total CO2 22.6 L, ABG O2 Saturation 94, ABG Base Excess -3.1 L 12/18/19 09:24: POC Glucose 288 H 12/18/19 09:25: Chlamy pneumoniae PCR Not detected, Adenovirus (PCR) Not detected, B. pertussis DNA (PCR) Not detected, Coronavirus OC43 (PCR) Not detected, Coronavirus HKU1 (PCR) Not detected, Coronavirus 229E (PCR) Not detected, SARS-CoV-2 (PCR) Not detected, Coronavirus NL63 (PCR) Not detected, Human Metapneumovir PCR Not detected, Influenza A (H1) PCR Not detected, Influ A (H1N1/09) PCR Not detected, Influenza A (H3) PCR Not detected, Influenza Type A (PCR) Not detected, Influenza Type B (PCR) Not detected, M. pneumoniae (PCR) Not detected, Parainfluenza 1 (PCR) Not detected, Parainfluenza 2 (PCR) Not detected, Parainfluenza 3 (PCR) Not detected, Parainfluenza 4 (PCR) Not detected, RSV (PCR) Not detected, Entero/Rhino (PCR) Not detected 12/18/19 09:30: Lactate 1.4 12/18/19 10:10: Troponin I < 0.01 12/18/19 13:44: Troponin I < 0.01 12/18/19 16:57: POC Glucose 297 H 12/18/19 21:35: POC Glucose 229 H 12/19/19 05:57: POC Glucose 240 H 12/19/19 06:44: WBC 8.2, RBC 4.62, Hgb 12.3, Hct 41.0, MCV 88.7, MCH 26.7 L, MCHC 30.1 L, RDW 18.3 H, Plt Count 391, MPV 7.7, Neut % (Auto) 69.5, Lymph % (Auto) 21.6, [place] % (Auto) 6.2, Eos % (Auto) 1.5, Baso % (Auto) 1.2, Neut # (Auto) 5.7, Lymph # (Auto) 1.8, [place] # (Auto) 0.5, Eos # (Auto) 0.1, Baso # (Auto) 0.1 12/19/19 06:44: Sodium 135 L, Potassium 4.0, Chloride 104, Carbon Dioxide 22, Anion Gap 13.0, BUN 15, Creatinine 0.50 L, Estimated Creat Clear 63, Estimated GFR 122, Est GFR ( Amer) 147 D, Glucose 228 H D, Calcium 8.9 I & O for Last 24 hours: Intake & Output 12/16/19 12/17/19 12/18/19 12/19/19 11:59 11:59 11:59 11:59 Intake Total 240 / 240 Output Total 650 / 650 Balance -410 / -410 Weight 210 lb 171 lb Microbiology Reports for the Last 24 Hours: Microbiology 12/18/19 09:30 Blood Blood Culture - Preliminary Narrative: Patient's blood pressure has vastly improved. However neurologically patient is completely different than the last time I examined her in the office. She has a vacant stare, has some lip movements consistent with mental status changes and confusion. She is not oriented to place or time and she is globally weak. Heart rate regular, lungs clear. Abdomen soft nontender. No edema or rash. Assessment and Plan (1) Hypertensive emergency Status: Acute Category: Medical Code(s): I16.1 - Hypertensive emergency (2) Chronic pain disorder Status: Chronic Category: Medical Code(s): G89.4 - Chronic pain syndrome (3) AMS (altered mental status) Status: Acute Qualifiers: Altered mental status type: unspecified Qualified Code(s): R41.82 - Altered mental status, unspecified Category: Medical Code(s): R41.82 - Altered mental status, unspecified (4) CVA (cerebrovascular accident) Status: Ch
--- NOTE | 2019-12-19 09:36 | HMH.PTEV ---
Physical Therapy Evaluation Rehab PT IP Evaluation Start: 12/19/19 07:42 Freq: ONCE Status: Active Protocol: Document 12/19/19 09:23 CYRIL (Rec: 12/19/19 09:36 CYRIL [id number]) Subjective/History History History 69-year-old female with complex past medical history who presents with intermittent altered mental status and hypertensive emergency. Admitted for monitoring and treatment of blood pressure. Pt is non-ambulatory at home and motivates in w/c w/ pushing. Pt has sig hx of chronic pain and spinal degeneration Subjective Subjective Pt unable to answer simple questions - does respond to name Rehab PT IP Eval Objective Appearance Patient Behavior Passive,Confused Difficulty following instructions moderate Ambulation Patient Able to Ambulate No Balance Ability to Arise Unable Sitting Balance Leans or slides in chair Standing Balance Unsteady Dynamic Sitting Balance Ability Zero Dynamic Standing Balance Ability Zero Transfers Bed Transfer Ability Maximum x 1 (75% assist) Chair Transfer Ability Maximum x 1 (75% assist) Sit to Stand Bed Transfer Ability Total/Dependent (100%) Sit to Stand Chair Transfer Ability Total/Dependent (100%) ROM All Extremities PT ROM Status WFL MMT All Extremities Abnormal MMT Grade 3-/5 Rehab PT IP prob,goals,plan Problems Date of Evaluation: 12/19/19 PT IP Problems Bed Mobility,Transfers,Other Other Pt Problem AMS Rehab Potential Rehab Potential Poor Equipment Needs Assistive Devices Wheelchair Plan PT Intervention Plan Bed Mobility,Transfers PT Plan Frequency BID Duration LOS Discharge Goals Bed Transfer Ability Maximum x 1 (75% assist) Discharge Plan PT Discharge Plan Pt to need SNF placement for skilled rehab to allow return home w/ spouse at PLOF G -code Required Yes Eval Complexity Eval Charge Codes 96434 - High Complexity G Codes PT Current Status Self Care PT Current Status Modifier CN-At least 100% impaired, limited or restricted PT Goal Status Self Care PT Goal Status Modifer
--- NOTE | 2019-12-19 10:06 | PC.NURSE ---
Notified Dr. Ta of anaerobic and aerobic blood culture results.
[2019-12-19 11:02] LABS: POC Glucose,Bedside 254 (70-110)
--- NOTE | 2019-12-19 11:19 | SW/DCPLANNER ---
Addendum entered by Alma Wright 12/21/19 09:28: I have updated Lori at [facility] that this patient will not be ready for discharge till Tuesday. Addendum entered by Estrellita Dominguez 12/20/19 06:36: [facility] RESPONDED BACK TO ME AND STATED THEY HAD NO BEDS WHICH WAS HUSBANDS FIRST CHOICE, I ALSO SENT REFERRAL TO [facility] AND THEY DON'T HAVE A BED EITHER... I SPOKE WITH AGAIN AND HE AGREED TO ALLOW ME TO SEND IT TO [facility] AND I DID AND SPOKE WITH [facility] [phone] AND PATIENT WAS ACCEPTED.. SHE IS NOT READY AT THIS TIME, CULTURES ARE PENDING BUT ONCE WE DETERMINE THE RIGHT ANTIBIOTIC SHE WILL BE READY TO DISCHARGE.... Original Note: SENT REFERRAL ON THIS PATIENT TO [facility] FOR A SKILLED FEMALE BED PER HUSBANDS CHOICE...PATIENT HAS SOME PENDING CULTURES, WAITING TO SEE IF SHE IS GOING TO NEED IV ANTIBIOTICS.. IF THEY DON'T HAVE A BED, REQUESTED [facility].. NOT SURE THEY WILL ACCEPT HER R/T HER POSSIBLY NEEDING IN STORE REPRESENTATIVE CARE VS SHORT TERM...
[2019-12-19 13:35] LABS: POC Glucose,Bedside 159 (70-110)
--- NOTE | 2019-12-19 13:35 | PC.NURSE ---
Sunny with PT called this nurse into the room. The patient was very diaphoretic and pale. Pupils were equal and reactive to light. R side noted weaker than L side, but that is patient's baseline because she had a stroke November 27, 2018. Pt hasn't spoke much except a few simple words. Pt condition hasn't changed while under my care. I checked her blood sugar to make sure it was ok and it was 159. BP was 142/59 heart rate 66 temperature of 97.7 and respiratory rate of 20. Pt stated she has no pain at this time. Family is at bedside. Will continue to monitor pt and notify MD of any changes.
--- NOTE | 2019-12-19 14:05 | PC.NURSE ---
Spoke with Caprice Irizarry about whether to place pt in contact precautions due to one blood culture coming back meca not detected and the other with meca detected. She said to wait until final results came back.
[2019-12-19 16:39] LABS: POC Glucose,Bedside 170 (70-110)
--- NOTE | 2019-12-19 18:26 | PC.NURSE ---
PT IS UNABLE TO TELL ME HER NAME, BIRTHDAY, PLACE, OR TIME. SHE HASN'T SPOKE MUCH TODAY EXCEPT SIMPLE WORDS LIKE NO OR OK. PT HAS TOLERATED ROOM AIR WELL THROUGHOUT SHIFT. RESPIRATIONS REGULAR AND UNLABORED. LUNG SOUNDS DIMINISHED THROUGHOUT. NO COUGH NOTED. NO EDEMA NOTED. WEAKNESS NOTED TO R SIDE R/T STROKE IN NOVEMBER 2018. +2 PULSES NOTED THROUGHOUT. PT HAS BEEN TURNED Q 2 HOURS. BED ALARM ON TO [employer]OM[employer] SAFETY. CAME TO VISIT PT TODAY AND HER SISTER IN LAW DID WELL. PT HAS REPORTED PAIN TWICE THIS SHIFT IN HER BACK BY HOLLERING OUT. SHE RECEIVED PERCOCET ONCE AND MORPHINE ONCE. ON REASSESSMENT BOTH TIMES, PT WAS RESTING W EYES CLOSED. PT BROKE OUT IN A DIAPHORETIC STATE ONCE. VSS. BS WAS NORMAL. ACTIVE BOWEL SOUNDS HEARD IN ALL 4 QUADRANTS. SOFT AND NONTENDER ABDOMEN. NO BM THIS SHIFT. COWAN CATHETER IN PLACE W CLEAR YELLOW URINE NOTED. NO KINKS NOTED. PT IS CURRENTLY SLEEPING. CALL LIGHT WITHIN REACH. BED IN LOWEST POSITION. VSS. WILL CONTINUE TO MONITOR.
--- NOTE | 2019-12-19 18:45 | PC.NURSE ---
READDRESSED CODE STATUS WITH PT'S AND HE STATED HE WANTS PT TO CONTINUE TO BE A FULL CODE.
--- NOTE | 2019-12-19 19:14 | PC.NURSE ---
report given to marsha
[2019-12-19 22:54] LABS: POC Glucose,Bedside 293 (70-110)
--- NOTE | 2019-12-19 22:55 | PC.NURSE ---
Spoke with maynor Perales to give ordered dose of vancomycin 1 gram x1 to pt at this time.
[2019-12-20] VITALS (7 sets, daily range): BP systolic 140–180; BP diastolic 70–90; PULSE 60–80; RESP 16–20; TEMP 36.3–37; O2SAT 94–95; BMI 29.0
--- NOTE | 2019-12-20 03:45 | PC.NURSE ---
Pt had a change in mental status at beginning of shift. Pt unable to follow commands of this RN. Pt remains nonverbal with gazed look when spoken too. Does not seem to comprehend anything that you tell her. Unable to swallow pills or drink from a straw. Pt's at bedside states this is a rapid change noted from dinner, she was eating and drinking just fine without issue. D/c pain meds per APR per MD order. Pt rested well with eyes closed majority of this shift thus far with at bedside. Administered ATB x2 this shift per MD orders. Upon awakening this am pt appropriately talking with staff. Able to state her name and part of her . Also able to adequately swallow water and her Tylenol. Pt c/o generalized pain. Tolerated RA well no SOA. RR noted even and unlabored. Bilateral lungs noted clear t/o. Abdomen noted soft and non-tender. Adequate urine output noted per FC. Refused TEDS. Pt able to turn herself in bed for majority of this shift, encouraged turning this am per staff. VSS. Remains safe. Call light within reach. Will continue to monitor.
[2019-12-20 05:46] LABS: POC Glucose,Bedside 229 (70-110)
--- NOTE | 2019-12-20 08:35 | HMH.ACPN2 ---
Internal Medicine - PN: Subj *Date: 12/20/19 *Time: 08:35 Interval history: Patient has had some waxing and waning level of consciousness yesterday evening, improved after supper yesterday and this morning she is responsive and alert although not at her cognitive baseline from her outpatient status. CT with contrast unremarkable for acute cerebral damage. Blood cultures reviewed. Exam Vital signs and Labs for Last 24 Hours: Temp Pulse Resp BP Pulse Ox 98.4 F 71 18 140/70 94 L 12/20/19 04:00 12/20/19 04:00 12/20/19 04:00 12/20/19 04:00 12/20/19 04:00 Laboratory Results - last 24 hr 12/19/19 10:51: POC Glucose 254 H 12/19/19 13:25: POC Glucose 159 H 12/19/19 16:26: POC Glucose 170 H 12/19/19 20:54: POC Glucose 293 H 12/20/19 05:17: POC Glucose 229 H I & O for Last 24 hours: Intake & Output 12/17/19 12/18/19 12/19/19 12/20/19 11:59 11:59 11:59 11:59 Intake Total 480 / 480 1391 / 1391 Output Total 650 / 650 325 / 325 Balance -170 / -170 1066 / 1066 Weight 210 lb 171 lb 170 lb 2 oz Microbiology Reports for the Last 24 Hours: Microbiology 12/18/19 09:30 Blood Blood Culture - Preliminary 12/18/19 09:30 Blood Blood Culture - Preliminary Narrative: Patient is alert, but not at her baseline level of cognition. She is able to respond to simple commands but is not able to form complex sentences. Lungs have good air movement. Heart rate regular. She continues to have her oral pharyngeal movements/tremor which are somewhat new for her. No other oral or ENT lesions noted. Abdomen soft nontender. No edema or clubbing. No significant focal deficits on neuro exam but cognitive suppression as noted Assessment and Plan (1) Hypertensive emergency Status: Acute Category: Medical Code(s): I16.1 - Hypertensive emergency (2) Chronic pain disorder Status: Chronic Category: Medical Code(s): G89.4 - Chronic pain syndrome (3) AMS (altered mental status) Status: Acute Qualifiers: Altered mental status type: unspecified Qualified Code(s): R41.82 - Altered mental status, unspecified Category: Medical Code(s): R41.82 - Altered mental status, unspecified (4) CVA (cerebrovascular accident) Status: Chronic Qualifiers: CVA mechanism: unspecified Qualified Code(s): I63.9 - Cerebral infarction, unspecified Category: Medical Code(s): I63.9 - Cerebral infarction, unspecified (5) Hemiplegia affecting right dominant side Status: Chronic Category: Medical Code(s): G81.91 - Hemiplegia, unspecified affecting right dominant side (6) Type 2 diabetes mellitus with diabetic neuropathy, with long-term current use of insulin Status: Chronic Category: Medical Code(s): E11.40 - Type 2 diabetes mellitus with diabetic neuropathy, unspecified; 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 I question compliance at home versus stroke that caused reactive hypertension that is now improving. I do think she had a completed stroke clinically based on her cognition and new choreiform facial movements although CT scans negative I believe MRI would show this but MRI scanning would not change treatment algorithm or outcome and I do not want to put her through this. We have contacted long-term care facility in the area who will accept her for PT/OT. Her is in agreement with this. I spoke to him this morning about CODE STATUS and he will elza this over. Blood culture positivity noted. We started vancomycin and Levaquin l
--- NOTE | 2019-12-20 11:28 | HMH.PHACONS ---
- Pharmacy Consult Date: 12/20/19 Time: 11:28 Referring provider: DR. CARY Reason for Consult:: VANCOMYCIN DOSING Allergies and ADEs:: Allergies Allergy/AdvReac Type Severity Reaction Status Date / Time cefuroxime [From CEFTIN] Allergy Mild Verified 11/27/19 15:31 Home Medications:: Home Medications Medication Instructions Recorded Confirmed Type alendronate 70 mg tablet 70 mg PO WEEKLY 84 Days 04/25/17 12/18/19 History clopidogrel 75 mg tablet 75 mg PO DAILY 90 Days 04/25/17 12/18/19 History leflunomide 10 mg tablet 10 mg PO DAILY 30 Days 04/25/17 12/18/19 History lisinopril 20 mg tablet 20 mg PO BID 30 Days 04/25/17 12/18/19 History simvastatin 40 mg tablet 40 mg PO HS 90 Days 04/25/17 12/18/19 History oxycodone-acetaminophen 10 mg-325 1 tab PO QIDP PRN 30 Days 08/23/17 12/18/19 History mg tablet topiramate 50 mg tablet 50 mg PO BID 30 Days 08/23/17 12/18/19 History alprazolam 0.5 mg tablet 0.5 mg PO DAILY tab 09/11/18 12/18/19 History insulin degludec 200 unit/mL (3 20 unit SQ DAILY 120 Days #0 09/11/18 12/18/19 History mL) subcutaneous pen omeprazole 20 mg capsule,delayed 20 mg PO DAILY cap 09/11/18 12/18/19 History release Baclofen [Lioresal 10mg tablet] 10 mg PO TID 11/27/18 12/18/19 History Glimepiride 4 mg PO BID 11/27/18 12/18/19 History paroxetine HCl 20 mg tablet 60 mg PO HS 08/27/19 12/18/19 History Aspirin [Aspirin 81mg EC Tab] 81 mg PO DAILY 12/18/19 12/18/19 History Cyanocobalamin (Vitamin B-12) 1,000 mcg IM WEEKLY 12/18/19 12/18/19 History [Cyanocobalamin 1,000mcg/mL Vial] Dapagliflozin Propanediol [Farxiga] 10 mg PO DAILY 12/18/19 12/18/19 History Docusate Sodium [Colace 250mg 250 mg PO BID 12/18/19 12/18/19 History capsule] Insulin Lispro [Humalog Kwikpen 0 unit SQ DIRECTED 12/18/19 12/18/19 History U-100] Melatonin/Pyridoxine HCl (B6) 1 each PO HS 12/18/19 12/18/19 History [Melatonin 5 mg Tablet] Metformin HCl [Metformin 1000mg 1,000 mg PO BID 12/18/19 12/18/19 History Tablets] Naloxegol Oxalate [Movantik] 25 mg PO DAILY 12/18/19 12/18/19 History carvediloL [Coreg 25mg Tablet] 12.5 mg PO BID 12/18/19 12/18/19 History hydrOXYzine pamoate [Vistaril 25mg 25 mg PO TIDP PRN 12/18/19 12/18/19 History capsule] ondansetron HCL [Ondansetron 4mg 4 mg PO QIDP PRN 12/18/19 12/18/19 History tab*] predniSONE [Prednisone 2.5mg 2.5 mg PO DAILY 12/18/19 12/18/19 History Tab] Height: 1.63 m Weight: 77.167 kg Laboratory Results:: Laboratory Results - last 24 hr 12/19/19 13:25: POC Glucose 159 H 12/19/19 16:26: POC Glucose 170 H 12/19/19 20:54: POC Glucose 293 H 12/20/19 05:17: POC Glucose 229 H Medical History: Reports:: Anxiety, Carotid Stenosis, Depression, Diabetes Mellitus Type 2, Gastroesophageal Reflux Disease(GERD), Hyperlipidemia, Hypertension, Peripheral Artery Disease Denies:: Cancer, Diabetes Mellitus Type 1, Internal Pacemaker, Lung Disease, MRSA, Seizures Assessment and Plan (1) Hypertensive emergency Status: Acute Category: Medical Code(s): I16.1 - Hypertensive emergency (2) Chronic pain disorder Status: Chronic Category: Medical Code(s): G89.4 - Chronic pain syndrome (3) AMS (altered mental status) Status: Acute Qualifiers: Altered mental status type: unspecified Qualified Code(s): R41.82 - Altered mental status, unspecified Category: Medical Code(s): R41.82 - Altered mental status, unspecified (4) CVA (cerebrovascular accident) Status: Chronic Qualifiers: CVA mechanism: unspecified Qualified Code(s): I63.9 - Cerebral infarction, unspecified Category: Medical Code(s): I63.9 - Cerebral infarction, unspecified (5) Hemiplegia affecting right dominant side Status: Chronic Category: Medical Code(s): G81.91 - Hemiplegia, unspecified affecting right dominant side (6) Type 2 diabetes mellitus with diabetic neuropathy, with long-term current use of insulin Status: Chronic Categ
[2019-12-20 12:11] LABS: POC Glucose,Bedside 252 (70-110)
[2019-12-20 17:16] LABS: POC Glucose,Bedside 286 (70-110)
--- NOTE | 2019-12-20 19:52 | PC.NURSE ---
PT IS RESTING IN BED. RECEIVED TYLENOL FOR DISCOMFORT. PT HAS BEEN ALERT AND TALKATIVE T/O THE SHIFT. IV ACCESS TO THE RAC INFILTRATED. NEW IV ACCESS NOTED TO LAC. PT HAS BEEN EATING AND DRINKING FAIR THIS SHIFT. PT TOOK ALL HER PO MEDICATIONS W/O DIFFICULTY. PT HAS A SMALL STAGE 2 NOTED TO THE BUTTOCKS WITH DRESSING C/D/I. 1 BOWEL MOVEMENT NOTED THIS SHIFT. VSS. LUNG SOUNDS CLEAR. ABDOMEN SOFT NON TENDER WITH ACTIVE BOWEL SOUNDS . TURN AND REPOSITION Q2H. WILL CONTINUE TO MONITOR.
[2019-12-20 21:43] LABS: POC Glucose,Bedside 306 (70-110)
[2019-12-21] VITALS: BP 178/91; PULSE 67; PULSE 70; RESP 16; TEMP 36.5; O2SAT 92
--- NOTE | 2019-12-21 03:15 | PC.NURSE ---
Pt able to state name and place. pt c/o pain medicated per APR. lungs CTA. BS active in all quads. F/c draining yellow urine. pt has been very restless tonight and awake. pt turn q2 hrs, bed alarm activated. pt received shower and bed change. @ bedside
[2019-12-21 04:00] VITALS: BP 157/84; PULSE 58; RESP 18; TEMP 36.5; O2SAT 94
[2019-12-21 05:22] VITALS: BMI 30.3
[2019-12-21 05:25] LABS: POC Glucose,Bedside 134 (70-110)
[2019-12-21 08:00] VITALS: BP 162/83; PULSE 60; PULSE 62; RESP 16; TEMP 36.3; O2SAT 95
[2019-12-21 08:05] LABS: Basophils # 0.1 K/mm3 (0-0.2); Basophils % 1.1 % (0.1-2.0); Eosinophils # 0.2 K/mm3 (0.0-0.4); Eosinophils % 2.1 % (0.1-12.0); Hematocrit 39.6 % (37.0-47.0); Lymphocytes # 1.7 K/mm3 (0.7-4.5); Lymphocytes % 22.3 % (10-50); Mean Corpuscular HGB Conc 30.2 g/dL (31.8-35.4); Mean Corpuscular Hemoglobin 26.9 pg (27.0-31.2); Mean Platelet Volume 7.3 fl (7.4-10.4); Monocytes # 0.6 K/mm3 (0.1-1.0); Neutrophils # 5.1 K/mm3 (1.8-7.8); Neutrophils % 66.4 % (37.0-80.0); Platelet Count 315 K/mm3 (142-424); Red Blood Count 4.46 M/mm3 (4.20-5.40); Red Cell Distribution Width 18.4 % (11.5-17.5); White Blood Count 7.7 K/mm3 (4.8-10.8)
[2019-12-21 08:16] LABS: Chloride 108 mmol/L (98-107); Potassium 3.4 mmoL/L (3.5-5.1); Sodium 139 mmol/L (136-145)
[2019-12-21 08:18] LABS: Blood Urea Nitrogen 12 mg/dl (7-17); Creatinine Clearance Estimated 66 mL/min (50-200); Estimated Glomerular Filt Rate 122 ml/min (>60); GFR (African American) 147 ML/MIN (>60)
[2019-12-21 08:19] LABS: Alanine Aminotransferase 12 U/L (12-78); Albumin Level 3.7 g/dl (3.5-5.0); Albumin/Globulin Ratio 1.2 (1.1-1.8); Alkaline Phosphatase 74 U/L (38-126); Anion Gap 10.4 mEq/L (5-15); Aspartate Amino Transferase 20 U/L (14-36); Bilirubin,Total 0.4 mg/dl (0.2-1.3); Carbon Dioxide 24 mmol/L (22.0-30.0); Globulin 3.2 g/dL (1.3-3.2); Glucose 156 mg/dl (74-100); Magnesium 1.5 mg/dl (1.6-2.3); Total Protein,Serum 6.9 g/dl (6.3-8.2)
--- NOTE | 2019-12-21 08:57 | HMH.ACPN2 ---
Internal Medicine - PN: Subj *Date: 12/21/19 *Time: 13:28 Interval history: Patient had some pain overnight, resumed her oxycodone regimen, this seems to have helped. Blood cultures still pending. Reviewed labs, stable this morning. Patient continues to have altered mentation from baseline. Supine in bed. No fevers, hemodynamically stable. Improvement in blood pressure control in the past 24 hours. at bedside. Exam Vital signs and Labs for Last 24 Hours: Temp Pulse Resp BP Pulse Ox 97.7 F 58 L 18 157/84 H 94 L 12/21/19 04:00 12/21/19 04:00 12/21/19 04:00 12/21/19 04:00 12/21/19 04:00 Laboratory Results - last 24 hr 12/20/19 11:56: POC Glucose 252 H 12/20/19 17:06: POC Glucose 286 H 12/20/19 21:02: POC Glucose 306 H* 12/21/19 05:09: POC Glucose 134 H 12/21/19 07:40: WBC 7.7, RBC 4.46, Hgb 12.0 L, Hct 39.6, MCV 89.0, MCH 26.9 L, MCHC 30.2 L, RDW 18.4 H, Plt Count 315, MPV 7.3 L, Neut % (Auto) 66.4, Lymph % (Auto) 22.3, [place] % (Auto) 8.0, Eos % (Auto) 2.1, Baso % (Auto) 1.1, Neut # (Auto) 5.1, Lymph # (Auto) 1.7, [place] # (Auto) 0.6, Eos # (Auto) 0.2, Baso # (Auto) 0.1 12/21/19 07:40: Sodium 139, Potassium 3.4 L, Chloride 108 H, Carbon Dioxide 24, Anion Gap 10.4, BUN 12, Creatinine 0.50 L, Estimated Creat Clear 66, Estimated GFR 122, Est GFR ( Amer) 147, Glucose 156 H, Calcium 9.0, Magnesium 1.5 L, Total Bilirubin 0.4, AST 20, ALT 12, Alkaline Phosphatase 74, Total Protein 6.9, Albumin 3.7, Globulin 3.2, Albumin/Globulin Ratio 1.2 I & O for Last 24 hours: Intake & Output 12/18/19 12/19/19 12/20/19 12/21/19 23:59 23:59 23:59 23:59 Intake Total 240 / 240 720 / 720 1391 / 1391 1160 / 1160 Output Total 100 / 100 550 / 550 1125 / 1425 300 / 300 Balance 140 / 140 170 / 170 266 / -34 860 / 860 Weight 77.678 kg 76 kg 77.167 kg 80.649 kg Microbiology Reports for the Last 24 Hours: Microbiology 12/18/19 09:30 Blood Blood Culture - Preliminary Gram Positive Cocci 12/18/19 09:30 Blood Blood Culture - Preliminary Gram Positive Cocci - Constitutional no acute distress, obese - *Routine HEENT Exam Head: Present: normocephalic Eye: Present: EOMI, PERRL ENT: Present: mucous membranes moist Comments: Edentulous - *Routine Neck Exam Present: supple. Absent: lymphadenopathy - *Routine Respiratory Exam Present: CTA bilaterally - *Routine Cardiovascular Exam Present: RRR - *Routine Abdominal Exam Present: soft, normoactive bowel sounds. Absent: tenderness - *Routine Extremities Exam Absent: cyanosis, clubbing, edema Comments: scars over bilateral knees from previous replacements - Routine Back/Spine/Pelvis Exam Comments: stage 1 sacral decub. (POA) - *Routine Skin Exam Present: warm. Absent: rash - *Routine Neurological Exam Present: alert Oriented to person, answers simple yes and no questions. Disoriented to place and time. Assessment and Plan (1) Hypertensive emergency Status: Acute Category: Medical Code(s): I16.1 - Hypertensive emergency (2) Chronic pain disorder Status: Chronic Category: Medical Code(s): G89.4 - Chronic pain syndrome (3) AMS (altered mental status) Status: Acute Qualifiers: Altered mental status type: unspecified Qualified Code(s): R41.82 - Altered mental status, unspecified Category: Medical Code(s): R41.82 - Altered mental status, unspecified (4) CVA (cerebrovascular accident) Status: Chronic Qualifiers: CVA mechanism: unspecified Qualified Code(s): I63.9 - Cerebral infarction, unspecified Category: Medical Code(s): I63.9 - Cerebral infarction, unspecified (5) Hemiplegia affecting right dominant side Status: Chronic Category: Medical Code(s): G81.91 - Hemiplegia, unspecified affecting right dominant side (6) Type 2 diabetes mellitus with diabetic neuropathy, with long-term current use of insulin Status: Ch
[2019-12-21 12:00] VITALS: PULSE 60
[2019-12-21 12:20] LABS: POC Glucose,Bedside 225 (70-110)
--- NOTE | 2019-12-21 13:33 | SW/DCPLANNER ---
Addendum entered by Alma rWight 12/21/19 15:21: If ambulance can not transport today Lori at [facility] has stated they can accept tomorrow. Original Note: This patient will no longer need IV antibiotics at time of discharge. has stated that patient can discharge today. I have spoke with Lori at [facility] regarding situation and that patient will only need PT/OT. Lori has stated that this patient can discharge today. NEGATIVE COVID swab was completed on 12/17: per Lori no further testing needed. This patient will discharge to [facility] today SNF level of care.
--- NOTE | 2019-12-21 13:47 | HMH.DCSUM ---
General - General Admission date:: 12/18/19 Discharge date: 12/21/19 HPI HPI: Ms. Agosto is a 69-year-old female with complex past medical history consisting of chronic pain, history of CVA, severe debility, and dependent on her for majority of ADLs. Other history with chronic conditions per note. She presented to the ER today with her due to waxing and waning irritability, confusion, episodes of pain not responsive to therapy. Her states that she was at her baseline level of function until following up with her pain clinic the end of the week last week. Over the weekend she had difficulty getting comfortable, would scream and thrash about. This was causing significant stress on him and worry. He was no longer able to care for her in the home setting and worried that something more significant was wrong. Brought her to the ER for further assessment. On arrival she was noted to have severe hypertension with blood pressure systolics greater than 200. Additionally had episodes of complaining of hurting all over and then would calm and denies any pain. Work-up with imaging, labs positive for chronic degenerative changes in her back. Labs otherwise at baseline. Blood pressure poorly responsive to treatment in the ER necessitating admission for hypertensive urgency/malignant hypertension with the setting of history of stroke. On assessment this afternoon, at bedside stating she was doing somewhat better. Patient had no complaints. Denied any chest pain, shortness of breath, abdominal pain, leg pain. Had eaten dinner without difficulty. Was lying comfortably supine in bed watching westerns . Was afebrile and stable on room air. Pleasantly confused that she thought she was at her pain clinic but knew her was with us. Blood pressure improved to 160s/90s. Extensive discussion with about goals of care with patient, baseline level of function, and is comfort with caring for her at home. States that as long as she is at her current level of function and alertness, he is comfortable with her at home. Does admit however over the weekend she was more than he could handle and about to break him Hospital Course Hospital Course: Admitted for altered mental status and hypertension. Was initiated on home regimen plus addition of amlodipine. Responded quite well with gradual improvement in her blood pressure to an appropriate level. Identified to have an altering of her baseline level of function with significant concern by care team that she has potentially had additional stroke. No acute findings during imaging or work-up however. Patient remained stable and has no focal neurologic deficits. Of note early on in her admission she had blood cultures come back positive that were obtained at presentation to the ER. She was empirically started on antibiotics but cultures returned showing 2 different species of staph in different bottles anaerobic/aerobic. They were felt to be contaminant as she never had a fever, elevated white count, or signs of infection. Antibiotics were discontinued. Overall she has remained stable with improvement in her pain regimen and blood pressure control. Plan to discharge to [facility] for further care if she is beyond the ability of her to care for her at home any longer. Care team agrees that we think she had a completed stroke clinically based on her cognition and new choreiform facial movements although CT scans negative I believe MRI would show this but MRI scanning would not change treatment algorithm or outcome and I do not want to put her through this. Continuing medications for chronic conditions including diabetes, constipation, hypercholesterolemia, among others. We will follow along with her at the [facility]. Medically stable for discharge. Patient tested for Covid on arrival. Positive antibodies, negative viral PCR swab. Has h
[2019-12-21 14:05] LABS: Vancomycin,Trough 10.8 ug/mL (5.0-10.0)
--- NOTE | 2019-12-21 14:19 | HMH.PHACONS ---
- Pharmacy Consult Date: 12/21/19 Time: 14:19 Referring provider: DR. CARY Reason for Consult:: VANCOMYCIN TROUGH LEVEL Allergies and ADEs:: Allergies Allergy/AdvReac Type Severity Reaction Status Date / Time cefuroxime [From CEFTIN] Allergy Mild Verified 11/27/19 15:31 Home Medications:: Home Medications Medication Instructions Recorded Confirmed Type alendronate 70 mg tablet 70 mg PO WEEKLY 84 Days 04/25/17 12/18/19 History clopidogrel 75 mg tablet 75 mg PO DAILY 90 Days 04/25/17 12/18/19 History leflunomide 10 mg tablet 10 mg PO DAILY 30 Days 04/25/17 12/18/19 History lisinopril 20 mg tablet 20 mg PO BID 30 Days 04/25/17 12/18/19 History simvastatin 40 mg tablet 40 mg PO HS 90 Days 04/25/17 12/18/19 History topiramate 50 mg tablet 50 mg PO BID 30 Days 08/23/17 12/18/19 History alprazolam 0.5 mg tablet 0.5 mg PO DAILY tab 09/11/18 12/18/19 History insulin degludec 200 unit/mL (3 20 unit SQ DAILY 120 Days #0 09/11/18 12/18/19 History mL) subcutaneous pen omeprazole 20 mg capsule,delayed 20 mg PO DAILY cap 09/11/18 12/18/19 History release Baclofen [Lioresal 10mg tablet] 10 mg PO TID 11/27/18 12/18/19 History Glimepiride 4 mg PO BID 11/27/18 12/18/19 History paroxetine HCl 20 mg tablet 60 mg PO HS 08/27/19 12/18/19 History Aspirin [Aspirin 81mg EC Tab] 81 mg PO DAILY 12/18/19 12/18/19 History Cyanocobalamin (Vitamin B-12) 1,000 mcg IM WEEKLY 12/18/19 12/18/19 History [Cyanocobalamin 1,000mcg/mL Vial] Dapagliflozin Propanediol [Farxiga] 10 mg PO DAILY 12/18/19 12/18/19 History Docusate Sodium [Colace 250mg 250 mg PO BID 12/18/19 12/18/19 History capsule] Insulin Lispro [Humalog Kwikpen 0 unit SQ DIRECTED 12/18/19 12/18/19 History U-100] Melatonin/Pyridoxine HCl (B6) 1 each PO HS 12/18/19 12/18/19 History [Melatonin 5 mg Tablet] Metformin HCl [Metformin 1000mg 1,000 mg PO BID 12/18/19 12/18/19 History Tablets] Naloxegol Oxalate [Movantik] 25 mg PO DAILY 12/18/19 12/18/19 History carvediloL [Coreg 25mg Tablet] 12.5 mg PO BID 12/18/19 12/18/19 History hydrOXYzine pamoate [Vistaril 25mg 25 mg PO TIDP PRN 12/18/19 12/18/19 History capsule] ondansetron HCL [Ondansetron 4mg 4 mg PO QIDP PRN 12/18/19 12/18/19 History tab*] predniSONE [Prednisone 2.5mg 2.5 mg PO DAILY 12/18/19 12/18/19 History Tab] Oxycodone HCl/Acetaminophen 1 tab PO TIDP PRN 30 Days #90 tab 12/21/19 Rx [Oxycodone W/Apap 325mg Tablet] Height: 1.63 m Weight: 80.649 kg Laboratory Results:: Laboratory Results - last 24 hr 12/20/19 17:06: POC Glucose 286 H 12/20/19 21:02: POC Glucose 306 H* 12/21/19 05:09: POC Glucose 134 H 12/21/19 07:40: WBC 7.7, RBC 4.46, Hgb 12.0 L, Hct 39.6, MCV 89.0, MCH 26.9 L, MCHC 30.2 L, RDW 18.4 H, Plt Count 315, MPV 7.3 L, Neut % (Auto) 66.4, Lymph % (Auto) 22.3, [place] % (Auto) 8.0, Eos % (Auto) 2.1, Baso % (Auto) 1.1, Neut # (Auto) 5.1, Lymph # (Auto) 1.7, [place] # (Auto) 0.6, Eos # (Auto) 0.2, Baso # (Auto) 0.1 12/21/19 07:40: Sodium 139, Potassium 3.4 L, Chloride 108 H, Carbon Dioxide 24, Anion Gap 10.4, BUN 12, Creatinine 0.50 L, Estimated Creat Clear 66, Estimated GFR 122, Est GFR ( Amer) 147, Glucose 156 H, Calcium 9.0, Magnesium 1.5 L, Total Bilirubin 0.4, AST 20, ALT 12, Alkaline Phosphatase 74, Total Protein 6.9, Albumin 3.7, Globulin 3.2, Albumin/Globulin Ratio 1.2 12/21/19 12:13: POC Glucose 225 H 12/21/19 13:00: Vancomycin Trough 10.8 H Medical History: Reports:: Anxiety, Carotid Stenosis, Depression, Diabetes Mellitus Type 2, Gastroesophageal Reflux Disease(GERD), Hyperlipidemia, Hypertension, Peripheral Artery Disease Denies:: Cancer, Diabetes Mellitus Type 1, Internal Pacemaker, Lung Disease, MRSA, Seizures Assessment and Plan (1) Hypertensive emergency Status: Resolved Category: Medical Code(s): I16.1 - Hypertensive emergency (2) Chronic pain disorder Status: Chronic Category: Medical Code(s): G89.4 - Chronic pain syndrome (3) AMS (al
[2019-12-21 16:00] VITALS: PULSE 60
[2019-12-21 16:25] LABS: POC Glucose,Bedside 205 (70-110)
--- NOTE | 2019-12-21 19:16 | PC.NURSE ---
report given to marsha
--- NOTE | 2019-12-21 19:18 | PC.NURSE ---
THIS RN REPLACED PATIENTS DRESSING ON COCCYX. SCANT AMOUNT OF SEROSANGUINOUS NOTED ON OLD DRESSING. AREA CLEANED AND NEW DRESSING APPLIED, PATIENT TOLERATED WELL. THIS RN PROVIDED REPORT TO KAUSHAL LAYTON AT [facility]. EMS ARRIVED TO TRANSPORT PATIENT. MR. SCHUSTER WAS PROVIDED PHONE NUMBER TO CALL FACILITY. ON D/C, PATIENT IS A&O X4, LUNGS CLEAR, PULSES EQUAL. ROSA MCKEON REMOVED COWAN CATHETER. PATIENT TOLERATED WELL.
== END 2019-12-21 18:25 | DRG 65 ==
LOC: ER 10:07 → 2ND 12-19 07:08
PROVIDERS: Emergency Medicine; Admitting Provider Internal Medicine Adolescent Medicine; Emergency Provider Emergency Medicine; PCP Internal Medicine Adolescent Medicine; Visit Provider Internal Medicine Adolescent Medicine
DX: I63.9 Cerebral infarction, unspecified (principal); I69.351 Hemiplegia and hemiparesis following cerebral infarction affecting right dominant side; I16.0 Hypertensive urgency; Z86.19 Personal history of other infectious and parasitic diseases; R41.89 Other symptoms and signs involving cognitive functions and awareness; R29.810 Facial weakness; Z72.0 Tobacco use; G89.4 Chronic pain syndrome; E11.42 Type 2 diabetes mellitus with diabetic polyneuropathy; Z79.4 Long term (current) use of insulin; E78.5 Hyperlipidemia, unspecified; Z79.82 Long term (current) use of aspirin; Z79.02 Long term (current) use of antithrombotics/antiplatelets
CPT/HCPCS: 36415; 70450; 70470; 71045; 72170; 80048; 80053; 80202; 80305; 81001; 82803; 82962; 83605; 83735; 84484; 85025; 86328; 87040; 87077; 87186; 87581; 87633; 87798; 93005; 96374; 96375; 96376; 97110; 97163; 97165; 97530; 99285; J1956; J2405; J3370; Q9967

== ENCOUNTER 2020-01-11 13:07 | Inpatient (IN) | payer MEDICARE, OTHER, SELFPAY ==
[2020-01-11] VITALS (8 sets, daily range): BP systolic 186–280; BP diastolic 81–112; PULSE 70–77; RESP 14–20; TEMP 37–37.2; O2SAT 94–97; BMI 32.1; BMI 32.7
--- NOTE | 2020-01-11 13:23 | HMH.EDGENADL ---
ED Disposition Clinical Impression: Hypertensive urgency Decubitus skin ulcer Qualifiers: Pressure injury location: sacral region Pressure injury stage: stage 1 Qualified Code(s): L89.151 - Pressure ulcer of sacral region, stage 1 Disposition: Admitted As Inpatient Condition on Discharge: Good - Critical Care Critical Care Time: No Attestation: On 01/11/20, the high probability of a clinically significant, sudden or life threatening deterioration of the following system(s) required my full and direct attention, intervention and personal management. The time I documented below is in addition to time spent performing reported procedures but includes the following listed in this critical care notation. Medical Decision Making - Medical Records Medical records reviewed: Yes: I reviewed the patient's medical records. MR Comment: Reviewed patient's hypertensive regimen. - Lm Inquiry Pt receiving controlled substance: No Vital Signs: 01/11/20 13:07 01/11/20 14:02 01/11/20 15:17 Temperature 98.6 F Temperature Source Oral Pulse Rate [Radial] 70 75 76 Respiratory Rate 16 20 Blood Pressure [Right Arm] 260/110 H 220/82 H 280/112 H Blood Pressure Mean [Right Arm] 160 128 168 Blood Pressure Source [Right Arm] Manual Cuff/ Auscultation Automatic Cuff Blood Pressure Position [Right Arm] Sitting Sitting Sitting 02 Sat by Pulse Oximetry 97 96 Oxygen Delivery Method Room Air Room Air 01/11/20 16:28 Temperature Temperature Source Pulse Rate [Radial] 72 Respiratory Rate Blood Pressure [Right Arm] 186/81 H Blood Pressure Mean [Right Arm] 116 Blood Pressure Source [Right Arm] Blood Pressure Position [Right Arm] 02 Sat by Pulse Oximetry Oxygen Delivery Method - Lab Data Lab Results 01/11/20 13:37: Urine Color Yellow, Urine Appearance Clear, Urine pH 7.5, Ur Specific [place] 1.020, Urine Protein Trace, Urine Glucose (UA) Trace, Urine Ketones Trace, Urine Blood Negative, Urine Nitrate Negative, Urine Bilirubin Negative, Urine Urobilinogen 0.2, Ur Leukocyte Esterase Negative, Urine WBC 3-5, Ur Transition Epith Cell 3-5, Urine Bacteria 1+, Urine Mucus Trace 01/11/20 14:05: WBC 9.0, RBC 4.70, Hgb 12.7, Hct 42.8, MCV 90.9, MCH 26.9 L, MCHC 29.6 L, RDW 17.7 H, Plt Count 458 H, MPV 7.6, Neut % (Auto) 76.4, Lymph % (Auto) 15.8, [place] % (Auto) 5.0, Eos % (Auto) 1.8, Baso % (Auto) 0.9, Neut # (Auto) 6.9, Lymph # (Auto) 1.4, [place] # (Auto) 0.5, Eos # (Auto) 0.2, Baso # (Auto) 0.1 01/11/20 14:05: Sodium 138, Potassium 4.0, Chloride 106, Carbon Dioxide 25, Anion Gap 11.0, BUN 13, Creatinine 0.70, Estimated Creat Clear 63, Estimated GFR 82, Est GFR ( Amer) 100, Glucose 203 H, Calcium 9.2, Total Bilirubin 0.5, AST 19, ALT 12, Alkaline Phosphatase 101, Total Protein 7.2, Albumin 4.0, Globulin 3.2, Albumin/Globulin Ratio 1.3 01/11/20 14:05: SARS-CoV-2 IgG Ab (Rapid) Positive A, SARS-CoV-2 IgM Ab (Rapid) Positive A Result diagrams: 01/11/20 14:05 01/11/20 14:05 Orders (Tests/Meds): ED MEDICATIONS Discontinued Medications Generic Name Dose Route Start Last Admin Trade Name Freq PRN Reason Stop Dose Admin Alprazolam 0.5 mg 01/11/20 14:40 01/11/20 14:47 Alprazolam 0.5mg Tablet PO 01/11/20 14:41 0.5 mg ONCE ONE Administration Carvedilol 12.5 mg 01/11/20 14:05 01/11/20 14:22 Carvedilol 12.5mg Tablet PO 01/11/20 14:06 12.5 mg ONCE ONE Administration Oxycodone/Acetaminophen 1 each 01/11/20 14:20 01/11/20 14:22 Oxycodone 5mg W/Apap 325mg Tablet PO 01/11/20 14:21 1 each ONCE ONE Administration ORDERS Category Date Time Status Covid-19 Nasal PCR ([facility]) Routine Lab 01/11/20 16:05 Received Full Resp Panel w/COVID ([facility]) Routine Lab 01/11/20 15:59 Ordered - Radiology Data #1 Image(s): Chest Image Reviewed: Yes I reviewed the patient's radiology image, Yes I have reviewed radiologist's interpretation Preliminary Findings: Normal/NAD #2 Image(s): Pelvis
--- NOTE | 2020-01-11 13:25 | XR_ITS ---
PROCEDURE: XR PELVIS 1-2V CLINICAL INDICATION: pelvic pain COMPARISON: CR XR PELVIS 1-2V from 12/18/2019 TECHNIQUE: XR Pelvis AP View FINDINGS: There is a left hip hemiarthroplasty present which is in good position. Mild osteoarthritic changes are present involving the right hip. There are inter pedicular screws in the lower lumbar spine and in the sacrum on both sides as previously described with prominent zones of lucency around the sacral screws left greater than right not significantly changed which could be due to loosening of the prosthesis. No lytic or blastic change. IMPRESSION: Overall no change status post left hip hemiarthroplasty and fusion of the lower lumbar spine and sacrum with prominent lucent zones around the sacral screws left greater than right which may be seen with loosening or infection Dictated by: Byron Vazquez MD 01/11/2020 14:52 Byron Vazquez MD in [place] 01/11/2020 14:52
--- NOTE | 2020-01-11 13:25 | XR_ITS ---
PROCEDURE: XR CHEST PORTABLE CLINICAL HISTORY: shortness of breath Shortness of air COMPARISON: CR [id number] XR ribs RT min 3V w CXR1V from 07/20/[address] chest w con from 01/31/2018 CR XR CHEST AP from 11/27/2018 CR XR CHEST PORTABLE from 12/18/2019 FINDINGS: There is cardiomegaly without failure. Increased density is present in the right lower lobe probably related overlying soft tissue attenuation. No definite consolidation collapse. Inter pedicular screws are present in the lower thoracic spine. Surgical clips are present in the left neck region. No acute bony abnormalities. IMPRESSION: Cardiomegaly. No acute finding Dictated by: Byron Vazquez MD 01/11/2020 14:49 Byron Vazquez MD in [facility] 01/11/2020 14:49
[2020-01-11 14:52] LABS: Chloride 106 mmol/L (98-107); Sodium 138 mmol/L (136-145)
[2020-01-11 14:54] LABS: Microscopic, Urine URINE MICROSCOPIC (MICROSCOPIC)
[2020-01-11 14:55] LABS: Alanine Aminotransferase 12 U/L (12-78); Albumin/Globulin Ratio 1.3 (1.1-1.8); Alkaline Phosphatase 101 U/L (38-126); Aspartate Amino Transferase 19 U/L (14-36); Bilirubin,Total 0.5 mg/dl (0.2-1.3); Blood Urea Nitrogen 13 mg/dl (7-17); Carbon Dioxide 25 mmol/L (22.0-30.0); Creatinine Clearance Estimated 63 mL/min (50-200); Estimated Glomerular Filt Rate 82 ml/min (>60); GFR (African American) 100 ML/MIN (>60); Globulin 3.2 g/dL (1.3-3.2); Total Protein,Serum 7.2 g/dl (6.3-8.2)
[2020-01-11 14:56] LABS: Basophils # 0.1 K/mm3 (0-0.2); Basophils % 0.9 % (0.1-2.0); Calcium 9.2 mg/dl (8.4-10.2); Eosinophils # 0.2 K/mm3 (0.0-0.4); Eosinophils % 1.8 % (0.1-12.0); Glucose 203 mg/dl (74-100); Hematocrit 42.8 % (37.0-47.0); Hemoglobin 12.7 g/dL (12.2-16.2); Lymphocytes # 1.4 K/mm3 (0.7-4.5); Lymphocytes % 15.8 % (10-50); Mean Corpuscular HGB Conc 29.6 g/dL (31.8-35.4); Mean Corpuscular Hemoglobin 26.9 pg (27.0-31.2); Mean Corpuscular Volume 90.9 fl (81-99); Mean Platelet Volume 7.6 fl (7.4-10.4); Monocytes # 0.5 K/mm3 (0.1-1.0); Neutrophils # 6.9 K/mm3 (1.8-7.8); Neutrophils % 76.4 % (37.0-80.0); Platelet Count 458 K/mm3 (142-424); Red Cell Distribution Width 17.7 % (11.5-17.5)
[2020-01-11 14:58] LABS: Appearance,Urine CLEAR (Clear); Bilirubin,Urine Negative (Negative); Blood, Urine Negative (Negative); Color,Urine YELLOW (Yellow); Glucose,Urine (UA) TRACE (Negative); Ketones,Urine TRACE (Negative); Leukocyte Esterase,Urine Negative (Negative); Nitrate,Urine Negative (Negative); PH,Urine 7.5 (5.0-8.5); Protein,Urine TRACE (Negative); Urobilinogen,Urine 0.2 EU/dl (0.2)
[2020-01-11 15:09] LABS: Bacteria,Urine 1+ /lpf; Mucus,Urine Trace /lpf
--- NOTE | 2020-01-11 15:15 | PC.NURSE ---
speaking with Dr. Robertson
--- NOTE | 2020-01-11 15:27 | PC.NURSE ---
Care management called for admission
[2020-01-11 15:41] LABS: Coronavirus 19 IgG Antibody Positive (Negative)
[2020-01-11 15:42] LABS: Coronavirus 19 IgM Antibody Positive (Negative)
--- NOTE | 2020-01-11 16:30 | PC.NURSE ---
PT AND SPOUSE UPDATED ON PLAN OF CARE
--- NOTE | 2020-01-11 18:01 | PC.NURSE ---
pt given meal tray at bedside feeding her
--- NOTE | 2020-01-11 18:04 | PC.NURSE ---
Called lab about status of resp swab status, advised hers was next to go on the machine. Notified
[2020-01-11 18:26] LABS: Adenovirus,PCR Not Detected (NotDetected); Bordetella Pertussis Not Detected (NotDetected); Chlamydophila Pneumoniae, PCR Not Detected (NotDetected); Coronavirus 19, PCR Not Detected (NotDetected); Coronavirus 229E Not Detected (NotDetected); Coronavirus NL63 Not Detected (NotDetected); Coronavirus OC43 Not Detected (NotDetected); Coronovirus HKU1,PCR Not Detected (NotDetected); Human Metapneumovirus Not Detected (NotDetected); Influenza A, PCR Not Detected (NotDetected); Influenza AH1, 2009 Not Detected (NotDetected); Influenza AH1, PCR Not Detected (NotDetected); Influenza AH3,PCR Not Detected (NotDetected); Influenza B, PCR Not Detected (NotDetected); Mycoplasma Pneumoniae, PCR Not Detected (NotDetected); Parainfluenza 1, PCR Not Detected (NotDetected); Parainfluenza 2, PCR Not Detected (NotDetected); Parainfluenza 3, PCR Not Detected (NotDetected); Parainfluenza 4, PCR Not Detected (NotDetected); Respiratory Syncytial Virus Not Detected (NotDetected); Rhinovirus/Enterovirus Not Detected (NotDetected)
--- NOTE | 2020-01-11 18:56 | PC.NURSE ---
CALLED LAB REGARDING NASAL SWAB, APPROX 40 MORE MINUTES
--- NOTE | 2020-01-11 19:29 | PC.NURSE ---
report taken from ROSA Hernandez. waiting on COVID test results. instructed not to give PO medication on APR and that its an admission order.
--- NOTE | 2020-01-11 20:09 | PC.NURSE ---
HTN reported to . instructed nurse to go ahead and administer Captopril now.
--- NOTE | 2020-01-11 20:17 | INFXCTL.NOTE ---
called to give ROSA Nichole report. stated she would call back
--- NOTE | 2020-01-11 20:44 | PC.NURSE ---
PT ARRIVED TO THE FLOOR VIA STRETCHER FROM ED AT 2043
[2020-01-11 23:04] LABS: POC Glucose,Bedside 200 (70-110)
[2020-01-12 02:40] LABS: POC Glucose,Bedside 166 (70-110)
[2020-01-12 04:00] VITALS: BP 178/102; PULSE 66; RESP 18; TEMP 36.7; O2SAT 95
[2020-01-12 05:21] VITALS: BMI 348.6
--- NOTE | 2020-01-12 06:26 | PC.NURSE ---
Pt is alert and oriented x4. Pt noted restless and anxious majority of shift. Pt's at bedside states the only medication she took Tuesday am was her diabetes and HTN meds. Pt has not had anxiety meds since am. Pt c/o persistent generalized pain. Administered Baclofen and Percocet Q6H x2 this shift thus far. Pt denies relief but noted to be more relaxed while lying in bed. Tolerated RA well with no c/o SOA. Bilateral lungs noted clear t/o upon auscultation. B/p noted elevated t/o shift. Pt asymptomatic this am. VSS. Remains safe. Call light within reach. Will continue to monitor.
[2020-01-12 07:12] LABS: Basophils # 0.1 K/mm3 (0-0.2); Basophils % 1.4 % (0.1-2.0); Eosinophils # 0.2 K/mm3 (0.0-0.4); Eosinophils % 2.1 % (0.1-12.0); Hematocrit 42.2 % (37.0-47.0); Hemoglobin 12.6 g/dL (12.2-16.2); Lymphocytes # 1.8 K/mm3 (0.7-4.5); Lymphocytes % 24.8 % (10-50); Mean Corpuscular HGB Conc 29.8 g/dL (31.8-35.4); Mean Corpuscular Hemoglobin 27.4 pg (27.0-31.2); Mean Corpuscular Volume 91.9 fl (81-99); Mean Platelet Volume 7.5 fl (7.4-10.4); Monocytes # 0.5 K/mm3 (0.1-1.0); Neutrophils # 4.8 K/mm3 (1.8-7.8); Neutrophils % 64.7 % (37.0-80.0); Platelet Count 437 K/mm3 (142-424); Red Blood Count 4.59 M/mm3 (4.20-5.40); Red Cell Distribution Width 17.8 % (11.5-17.5); White Blood Count 7.4 K/mm3 (4.8-10.8)
[2020-01-12 07:17] LABS: Chloride 106 mmol/L (98-107); Potassium 3.7 mmoL/L (3.5-5.1); Sodium 137 mmol/L (136-145)
[2020-01-12 07:20] LABS: Anion Gap 12.7 mEq/L (5-15); Blood Urea Nitrogen 11 mg/dl (7-17); Calcium 8.9 mg/dl (8.4-10.2); Carbon Dioxide 22 mmol/L (22.0-30.0); Creatinine Clearance Estimated -42 mL/min (50-200); Estimated Glomerular Filt Rate 99 ml/min (>60); GFR (African American) 119 ML/MIN (>60); Glucose 208 mg/dl (74-100)
[2020-01-12 08:00] VITALS: BP 186/82; PULSE 73; RESP 16; TEMP 36.6; O2SAT 95
--- NOTE | 2020-01-12 08:21 | HMH.HP ---
*Admission Date: 01/11/20 *Chief complaint: Altered mental status, intractable pain, malignant hypertension *History of present illness: 69-year-old white female with longstanding hypertension, history of ischemic stroke and history of chronic narcotic addiction and use over the past many years who is prescribed Percocet from her pain clinic in [place], Dr. Thuan Trevizo. Over the past couple of weeks she has had one admission for elevated blood pressure and intractable pain, was transferred to a local residential for ongoing care but after 3 days she was very unhappy there and her came and took her home against my advice. Her had a heart catheterization yesterday which was fortunately fairly normal, but in the interim she was at home by herself and did not take her blood pressure or pain medicine and when he arrived home she was in intractable pain, moaning, groaning, incoherent and he brought her to the emergency department. There she was found to have malignant hypertension with blood pressure elevations in the 220 range. She was admitted to hospital. Please see notes from her recent admission of November. During that admission she normalized over the next 24 hours simply by restarting her home medications before transfer to the residential. [facility] History I have reviewed the patient's past medical history: Yes Medical History: Reports:: Anxiety, Carotid Stenosis, Depression, Gastroesophageal Reflux Disease(GERD), Hyperlipidemia, Hypertension, Peripheral Artery Disease Denies:: Cancer, Diabetes Mellitus Type 1, Diabetes Mellitus Type 2, Internal Pacemaker, Lung Disease, MRSA, Seizures *Have you ever received a pneumonia vaccine?: No *Have you received a flu vaccine this season?: Yes Other Medical History: Reports: Arthritis, Other. Denies: Blood Transfusion Reaction Laterality Cases: Left: Total Hip Replacement Other Surgeries: Yes: Cardiac Surgery, Colonoscopy, Hysterectomy-Partial, Tubal Ligation, Other (CEA, back fusion). No: Pacemaker Amputation: No Fractures: No - *Social History Last grade of school completed: 9th or 10th Smoking Status: Current every day smoker Tobacco Type: cigarettes # Packs/Day (cigarettes): 1 Alcohol Intake: former Alcohol Intake Frequency:: other Substance Use Type: denies use *Occupational Status:: retired Housing: other Household Members: spouse *Travel in the last 8 weeks: None - Psychiatric History Pschychiatric History:: Reports:: Anxiety, Depression Family Hx:: Stroke Review of Systems - Review of Systems Review of systems:: pertinent systems reviewed and negative unless documented below Meds Home Medications Medication Instructions Recorded Confirmed Type alendronate 70 mg tablet 70 mg PO WEEKLY 84 Days 04/25/17 01/12/20 History clopidogrel 75 mg tablet 75 mg PO DAILY 90 Days 04/25/17 01/12/20 History leflunomide 10 mg tablet 10 mg PO DAILY 30 Days 04/25/17 01/12/20 History lisinopril 20 mg tablet 20 mg PO BID 30 Days 04/25/17 01/12/20 History simvastatin 40 mg tablet 40 mg PO HS 90 Days 04/25/17 01/12/20 History alprazolam 0.5 mg tablet 0.5 mg PO DAILY tab 09/11/18 01/12/20 History Baclofen [Lioresal 10mg tablet] 10 mg PO TID 11/27/18 01/12/20 History Glimepiride 4 mg PO BID 11/27/18 01/12/20 History paroxetine HCl 20 mg tablet 60 mg PO HS 08/27/19 01/12/20 History Aspirin [Aspirin 81mg EC Tab] 81 mg PO DAILY 12/18/19 01/12/20 History Cyanocobalamin (Vitamin B-12) 1,000 mcg IM WEEKLY 12/18/19 01/12/20 History [Cyanocobalamin 1,000mcg/mL Vial] Dapagliflozin Propanediol [Farxiga] 10 mg PO DAILY 12/18/19 01/12/20 History Docusate Sodium [Colace 250mg 250 mg PO BID 12/18/19 01/12/20 History capsule] Insulin Lispro [Humalog Kwikpen 0 unit SQ DIRECTED 12/18/19 01/12/20 History U-100] Melatonin/Pyridoxine HCl (B6) 1 each PO HS 12/18/19 12/18/19 History [Melatonin 5 mg Tablet] Metformin HCl [Metformin 1000mg 1,000 mg PO BID 12/18/19 01/12/20 History Tablets
[2020-01-12 11:20] LABS: POC Glucose,Bedside 174 (70-110)
[2020-01-12 11:20] LABS: POC Glucose,Bedside 249 (70-110)
--- NOTE | 2020-01-12 11:20 | P.CONPHA_ITS ---
[facility] Pharmacy VTE Monitoring - Patient Demographics Admission date: 01/11/20 Report Date: 01/12/20 Time: 11:20 Allergies/Adverse Reactions: Patient Allergies cefuroxime [From CEFTIN] Allergy (Mild, Verified 11/27/19 15:31) Height: 47.24 cm Weight: 77.819 kg Patient Problems: Current Active Problems AMS (altered mental status) (Acute) Hypertensive urgency (Acute) Decubitus skin ulcer (Acute) Declining functional status (Acute) Chronic prescription opiate use (Acute) - VTE Risk Labs: VTE Related Lab Results Hgb 12.6 g/dL (12.2-16.2) 01/12/20 06:54 Hct 42.2 % (37.0-47.0) 01/12/20 06:54 Plt Count 437 K/mm3 (142-424) H 01/12/20 06:54 BUN 11 mg/dl (7-17) 01/12/20 06:54 Creatinine 0.60 mg/dl (0.52-1.04) 01/12/20 06:54 Estimated Creat Clear -42 mL/min (50-200) L 01/12/20 06:54 Was VTE Risk Assessment Performed: Yes VTE Score: 7 VTE Risk Level: Moderate Risk - Prophylaxis VTE Prophylaxis Ordered?: Yes Types of VTE Prophylaxis: IPCS Thigh High Location of Applied Device: Bilateral Lower Extremeties
--- NOTE | 2020-01-12 12:05 | HMH.PHAINT ---
MEDICATION RECONCILIATION COMPLETED ON PATIENT USING EXTERNAL FILL HISTORY FROM PHARMACY AND LIST FROM PREVIOUS ADMISSION. -ESTEFANY FERRISD
--- NOTE | 2020-01-12 14:12 | PC.NURSE ---
NO LONGER AT BEDSIDE BED ALARM TURNED ON AT THIS TIME.
[2020-01-12 16:00] VITALS: BP 162/89; PULSE 76; RESP 16; TEMP 36.6; O2SAT 94
--- NOTE | 2020-01-12 17:38 | PC.NURSE ---
IS AT BEDSIDE AT THIS TIME, PT HAS BEEN REPOSITIONED Q2 HOURS, SHE IS TOLERATING RA WELL, AT TIMES PT BECOMES AGITATED AND DEMANDING, SHE IS VERY [place] BUT OTHERWISE IS AO*4, SHE HAS BEEN MEDICATED WITH PRN PERCOCET AND BACLOFEN ONCE THIS SHIFT WITH GOOD EFFECTIVENESS, HER HOME MEDS FOR HYPERTENSION HAVE BEEN RESTARTED, WILL CONTINUE TO MONITOR.
--- NOTE | 2020-01-12 18:32 | PC.WOUNDNOTE ---
Wound Location: coccyx and surrounding tissues Length: Width: Depth: Undermining Y/N: Tunneling cm: Granulation %: Slough/necrotic tissue %: Inflammation/swelling Y/N: Y Pain and/or tenderness Y/N: N Exudate: N Serosanguinous Sanguinous Serosanguinous Seropurulent Purulent Color: Clear [place] Cloudy/milky [place] Red Green Yellow Brown Lloyd Blue Consistency: Thick Thin Amount: None Scant Small Moderate Large Odor Y/N: N
[2020-01-12 19:39] VITALS: BP 148/96; PULSE 78; RESP 24; TEMP 36.7; O2SAT 96
[2020-01-12 20:49] LABS: POC Glucose,Bedside 179 (70-110)
[2020-01-13 04:00] VITALS: BP 196/90; PULSE 82; RESP 14; TEMP 36.9; O2SAT 94
--- NOTE | 2020-01-13 04:04 | PC.NURSE ---
Pt is unable to answer questions appropriately this am. Was able to rate her pain a 7/10 and tell me her husbands name, but unable to state her name or . Pt states she does not know it. Pt noted with dazed appearance to face when asked questions. Able to follow all commands of bilateral hand electromechanic and moving legs. PERRLA. Administered pain meds x2 per APR thus far upon request. Upon reassessments pt noted resting with eyes closed with no further complaints. Pt has rested well this shift. Tolerated RA well with no c/o SOA. HTN noted this am, 196/90 manual. Pt noted asymptomatic. VSS. Remains safe with bed alarm functioning. at bedside t/o night. Will continue to monitor.
[2020-01-13 04:55] VITALS: BMI 31.9
[2020-01-13 06:07] LABS: POC Glucose,Bedside 169 (70-110)
[2020-01-13 08:00] VITALS: BP 195/88; PULSE 74; RESP 17; TEMP 36.8; O2SAT 97
--- NOTE | 2020-01-13 08:28 | HMH.ACPN2 ---
Internal Medicine - PN: Subj *Date: 01/13/20 *Time: 08:28 Interval history: Patient did a little better overnight, blood pressure medications were restarted and her blood pressure has slowly improved although remains somewhat high. Her mental status has waxed and waned, she becomes severely anxious and agitated when the topic of placement comes up, and nursing staff reports that she has been afflicted with intermittent garbled speech but occasionally is able to express herself with words but it seems to be that she becomes overwhelmed with agitation and anxiety and becomes belligerent and yells. Exam Vital signs and Labs for Last 24 Hours: Temp Pulse Resp BP Pulse Ox 98.4 F 82 14 196/90 H 94 L 01/13/20 04:00 01/13/20 04:00 01/13/20 04:00 01/13/20 04:00 01/13/20 04:00 Laboratory Results - last 24 hr 01/12/20 05:38: POC Glucose 174 H 01/12/20 10:54: POC Glucose 249 H 01/12/20 19:47: POC Glucose 179 H 01/13/20 05:48: POC Glucose 169 H I & O for Last 24 hours: Intake & Output 01/10/20 01/11/20 01/12/20 01/13/20 11:59 11:59 11:59 11:59 Intake Total 590 / 590 130 / 130 Output Total 300 / 300 Balance 290 / 290 130 / 130 Weight 171 lb 9 oz 169 lb 4 oz Narrative: Patient is alert, awake, following commands. Able to swallow her pills and some water. Right facial droop unchanged. Cranial nerves otherwise intact. Heart rate regular, lungs clear, abdomen soft. Globally weak, no focal asymmetry of strength or movement of her extremities. 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 Malignant hypertension. Slowly improving with reinstitution of her medications. Clearly her is unable to administer medications on a regular schedule at home from a variety of factors. I am concerned about her ongoing waxing and waning mental state, we will get noncontrast CT of her head today when she is a little bit less anxious and agitated. 2. Agitation and anxiety-patient takes benzodiazepines at home and has for many years in spite of her ongoing opiate use-these have been prescribed by pain clinic in [place] in regards to the opiates. Interestingly over the past year I have cut her benzodiazepine prescriptions down from 4 times daily Xanax to 1 time daily on a slow taper. This has done well over the past couple months after her daughter moved away. Her daughter would call my office on a weekly basis when she was living at the home asking that her Xanax be restored to its previous high dose. and Ms. Agosto once the daughter moved out of the house have been fine with once daily Xanax. However, given the significant social stressors, hospitalization and probable intermediate placement I will restart Xanax as needed here to avoid self injury and agitation while she is in the hospital. This will be as needed and monitored by her nursing staff. 3. Chronic opiate use-long history of high-dose opiate use with inappropriate use patterns in the past, patient had been discharged from several pain clinics but has been on a fairly high dose of Percocet 4 times a day at home. At this stage of her life I really do not think there is any significant role for weaning and we will continue this with careful monitoring. 4. Placement issues-
--- NOTE | 2020-01-13 08:33 | CT_ITS ---
PROCEDURE: CT HEAD/BRAIN WO CON Referring Doctor: Antonio Ta Patient Age:69Y CLINICAL INDICATION: Mental status changes, history of stroke COMPARISON: CT CT HEAD/BRAIN WO/W CON from 12/19/2019 TECHNIQUE: No IV contrast. Standard axial images were obtained. All CT scans at the facility use one or more dose reduction, viz: automated exposure control, ma/kV adjustment per patient size (including targeted exams where dose is matched to indication, i.e. head), or iterative reconstruction technique. FINDINGS: No acute intracranial findings.. No significant change since recent CT head 12/19/2019.. No hemorrhage. No territorial infarct. No subdural nor extra-axial collections Again see mild diffuse cerebral atrophy along with diffuse low-density throughout deep white matter cerebral hemispheres reflecting chronic small vessel deep white-matter ischemic gliotic microangiopathic changes as noted previously Stable small well-defined older lacunar infarct measuring less than 5 mm at the lateral aspect of the left thalamus-unchanged but . Sulci and ventricles are mildly prominent due to the diffuse cerebral atrophy. Posterior fossa appears satisfactory and stable with minor atrophy here. A calcification of carotid siphons as previously noted. Skull intact-a generous thickness calvarium anteriorly. No focal findings. Scalp unremarkable Nomastoid effusions. Mastoid air cells are well developed and clear. Middle ear clear. IAC's symmetric. Nosinus air-fluid level. Visualized portions of the paranasal sinuses unremarkable kable. IMPRESSION: No acute intracranial findings . Stable CT head since 12/19/2019 Atrophy with chronic small vessel ischemic changes cerebral hemispheres bilateral again noted Dictated by: Hammad Larsen MD 01/13/2020 10:15 Hammad Larsen MD in [facility] 01/13/2020 10:15
--- NOTE | 2020-01-13 09:43 | PC.NURSE ---
PT TO RADIOLOGY WITH Mayuri Bolaños THIS TIME,
--- NOTE | 2020-01-13 09:56 | PC.NURSE ---
PT BACK TO FLOOR FROM RADIOLOGY, RESTING IN BED ON RIGHT SIDE, NO NEEDS AT THIS TIME.
[2020-01-13 11:14] LABS: POC Glucose,Bedside 256 (70-110)
[2020-01-13 11:14] LABS: POC Glucose,Bedside 185 (70-110)
--- NOTE | 2020-01-13 13:11 | CT_ITS ---
PROCEDURE: CT HEAD/BRAIN WO CON #2 performed at 1311 hours Referring Doctor: Antonio Ta Patient Age:69Y CLINICAL INDICATION: stroke alert Decreased level of consciousness. Initially nonresponsive. With diffuse weakness bilateral COMPARISON: CT HEADWO CT head/brain wo con from 09/09/[address] head/brain wo/w con from 01/09/[address] HEAD/BRAIN WO CON from 12/18/[address] HEAD/BRAIN WO CON from 01/13/2020... At 722 hours TECHNIQUE: No IV contrast. Standard axial images were obtained. All CT scans at the facility use one or more dose reduction, viz: automated exposure control, ma/kV adjustment per patient size (including targeted exams where dose is matched to indication, i.e. head), or iterative reconstruction technique. FINDINGS: No acute intracranial findings. No intracranial hemorrhage;. No extra-axial nor subdural collections No territorial infarct evident by CT We again see the diffuse cerebral atrophy along and the moderate diffuse deep white-matter chronic small-vessel microangiopathic ischemic gliotic changes at cerebral hemispheres as previously reported. This repeat 2nd CT head from today has a very slightly different positioning of the head in the gantry versus study from earlier today. With this I initially questioned if there could a focus of subtle further decreased attenuation area in the left periventricular deep white matter of the centrum semiovale tracks-seen on axial image 25. However when I go back to the December 17 exam there is a very similar appearance at that time in thus favor still that this reflects some chronic deep white-matter change focus (also a small deep white matter features such if acute would cause a more limited focal right-sided symptom rather than global findings) Again note the stable old mature small lacunar infarct lateral superior margin left thalamus just below the area discussed above Ventricles and basal cisterns appear remain clear.. No mass or midline shift nor mass effect. . Posterior fossa stable with mild atrophy period is seen on previous studies mild streak artifact at the level the artem most likely accounts for the very subtle low-density central artem as seen on multiple previous studies. Consider MRI as a becomes available to further evaluate if desired more sensitive evaluation for early infarct particularly if it would traveler changer Skull intact- Nomastoid effusions. Mastoid air cells are well developed and clear. Middle ear clear. IAC's symmetric. Nosinus air-fluid level. Visualized portions of the paranasal sinuses unremarkable. IMPRESSION: No discrete or definitive acute intracranial findings . Certainly no evidence of hemorrhage on this repeat CT. . No territorial infarct by CT.. . Chronic small vessel deep white matter microangiopathic ischemic gliotic changes again noted and favor overall appear stable-when compared back to November 2019 CT head . Stable diffuse cerebral atrophy Dictated by: Hammad Larsen MD 01/13/2020 13:40 Hammad Larsen MD in [facility] 01/13/2020 13:40
--- NOTE | 2020-01-13 13:11 | PC.NURSE ---
1238 PULLED PT UP IN BED, NOTICED PT WAS VERY LETHARGIC AND LESS RESPONSIVE TO STIMULI, PT NOT FOLLOWING COMMANDS NORMAL, 1245 VS 178/100 BP, 93% O2 ON RA, PULSE 68 BPM, 18 RPM 1251 CHECKED FSBS 193 1255 NOTIFIED CHARGE NURSE OF SITUATION 1256 PLATEN PRESS FEEDER NOTIFIED OF SITUATION STROKE ALERT CALLED 1300 MD AT BEDSIDE [address] SCAN
--- NOTE | 2020-01-13 13:12 | PC.NURSE ---
1257 - notified by Ruth Ann Esposito RN to call a stroke alert 1257 - web press operator helper offset notified of stroke alert, stroke alert announced 1358 - house cleaner at bedside 1359 - Dr Mckay at bedside assessing pt and receiving detailed report from pts ROSA Cormier 1308 - transported pt to ct with radiology 1315 - transporting patient back to room w/radiology
--- NOTE | 2020-01-13 13:32 | PC.NURSE ---
SPOKE WITH MD CARY, CLEAR LIQUID DIET ORDERED, HOLD XANAX.
--- NOTE | 2020-01-13 14:09 | PC.NURSE ---
SPOKE WITH DR CARY WHO STATED HE DOES NOT WANT STROKE LABS ORDERED.
[2020-01-13 15:00] VITALS: BP 209/99; PULSE 72; RESP 16; TEMP 36.5; O2SAT 93
--- NOTE | 2020-01-13 15:02 | PC.NURSE ---
nurse aware of high BP
[2020-01-13 16:18] LABS: POC Glucose,Bedside 193 (70-110)
--- NOTE | 2020-01-13 17:50 | PC.NURSE ---
PT IS AO*3 NOW, SHE IS MORE AWAKE AND ALERT AT THIS TIME, HER DIABETIC DIET HAS BEEN CONTINUED R/T TO HER BEING MORE AWAKE AND ALERT PER MD CARY, SHE IS RESTING COMFORTABLY AT THIS TIME, BP HAS BEEN ELEVATED T/O SHIFT AND MD CARY WAS MADE AWARE, HER CT WAS NEGATIVE FOR ACUTE CHANGES, SHE APPEARS TO HAVE RETURNED TO BASELINE, SHE IS TALKING AND ANSWERING QUESTIONS AND MAKING NEEDS KNOWN TO STAFF.
[2020-01-13 19:45] VITALS: BP 145/77; PULSE 65; RESP 17; TEMP 36.6; O2SAT 97
[2020-01-13 20:47] LABS: POC Glucose,Bedside 236 (70-110)
[2020-01-13 23:33] LABS: POC Glucose,Bedside 245 (70-110)
[2020-01-14 04:00] VITALS: BP 177/80; PULSE 65; RESP 15; TEMP 36.4; O2SAT 95
--- NOTE | 2020-01-14 05:00 | PC.NURSE ---
Pt is alert and oriented x4. Able to answer all questions appropriately. No episodes of confusion noted this shift. Pt rested well withe yes closed this am after receiving second dose of Q6H pain medication and muscle relaxer. Upon beginning of shift pt noted yelling out into halls, staff unable to console pt. noted at bedside t/o shift, but was not present at beginning of shift when pt was aroused and anxious. Q2H turn per staff. Tolerated RA well with no c/o SOA. Tolerates RA well with no c/o SOA. No edema noted. Tolerated diet well. VSS. Remains safe. Call light within reach. Will continue to monitor.
[2020-01-14 05:45] LABS: POC Glucose,Bedside 179 (70-110)
[2020-01-14 05:48] VITALS: BMI 32.0
[2020-01-14 08:00] VITALS: BP 190/78; PULSE 70; RESP 16; TEMP 36.6; O2SAT 95
--- NOTE | 2020-01-14 08:20 | P.PN_ITS ---
Internal Medicine - PN: Subj *Date: 01/14/20 *Time: 08:20 Interval history: Patient had a spell yesterday after rounds of mental status changes and confusion that was extremely difficult to make physiologic sense of. CT scan that was done before that was negative for any acute issues and stroke alert called by the nursing staff yesterday did not result in any kind of evidence of new neurologic changes. Interestingly patient has just received a Xanax. Through the day yesterday she became more oriented. She continues to have waxing and waning levels of responsiveness which I believe is mostly psychological and related to her anxiety and chronic dementia/opiate effects of her long-term opiate overuse. Exam Vital signs and Labs for Last 24 Hours: Temp Pulse Resp BP Pulse Ox 97.6 F 65 15 177/80 H 95 01/14/20 04:00 01/14/20 04:00 01/14/20 04:00 01/14/20 04:00 01/14/20 04:00 Laboratory Results - last 24 hr 01/12/20 16:30: POC Glucose 185 H 01/13/20 11:05: POC Glucose 256 H 01/13/20 12:51: POC Glucose 193 H 01/13/20 16:36: POC Glucose 236 H 01/13/20 21:13: POC Glucose 245 H 01/14/20 05:34: POC Glucose 179 H I & O for Last 24 hours: Intake & Output 01/11/20 01/12/20 01/13/20 01/14/20 11:59 11:59 11:59 11:59 Intake Total 590 / 590 250 / 250 110 / 110 Output Total 300 / 300 Balance 290 / 290 250 / 250 110 / 110 Weight 171 lb 9 oz 169 lb 4 oz 169 lb 7 oz Narrative: Patient is alert. Oriented x2. Garrulous and talkative but keeps saying that she does not understand her need to go to the [place] [facility]. Heart rate regular. Lungs are clear, abdomen soft. Right hemiparesis as previously noted. Assessment and Plan (1) Declining functional status Status: Acute Category: Medical Code(s): R53.81 - Other malaise (2) Chronic prescription opiate use Status: Acute Category: Medical Code(s): Z79.891 - long-term (current) use of opiate analgesic (3) Hypertensive urgency Status: Acute Category: Medical Code(s): I16.0 - Hypertensive urgency (4) AMS (altered mental status) Status: Acute Qualifiers: Altered mental status type: unspecified Qualified Code(s): R41.82 - Altered mental status, unspecified Category: Medical Code(s): R41.82 - Altered mental status, unspecified - Assessment and plan all Dx Assessment and Plan for all problems:: Hypertension improving. Plan for [place] [facility] placement. Care management consult
[2020-01-14 09:39] LABS: Adenovirus,PCR Not Detected (NotDetected); Bordetella Pertussis Not Detected (NotDetected); Chlamydophila Pneumoniae, PCR Not Detected (NotDetected); Coronavirus 19, PCR Not Detected (NotDetected); Coronavirus 229E Not Detected (NotDetected); Coronavirus NL63 Not Detected (NotDetected); Coronavirus OC43 Not Detected (NotDetected); Coronovirus HKU1,PCR Not Detected (NotDetected); Human Metapneumovirus Not Detected (NotDetected); Influenza A, PCR Not Detected (NotDetected); Influenza AH1, 2009 Not Detected (NotDetected); Influenza AH1, PCR Not Detected (NotDetected); Influenza AH3,PCR Not Detected (NotDetected); Influenza B, PCR Not Detected (NotDetected); Mycoplasma Pneumoniae, PCR Not Detected (NotDetected); Parainfluenza 1, PCR Not Detected (NotDetected); Parainfluenza 2, PCR Not Detected (NotDetected); Parainfluenza 3, PCR Not Detected (NotDetected); Parainfluenza 4, PCR Not Detected (NotDetected); Respiratory Syncytial Virus Not Detected (NotDetected); Rhinovirus/Enterovirus Not Detected (NotDetected)
--- NOTE | 2020-01-14 11:19 | HMH.PTEV ---
Physical Therapy Evaluation Rehab PT IP Evaluation Start: 01/14/20 10:05 Freq: .once Status: Active Protocol: Document 01/14/20 11:14 CYRIL (Rec: 01/14/20 11:19 CYRIL [id number]) Subjective/History History History 69 year-old female who presents from home brought in by EMS for complaints of pain over her buttock. EMS states that her had a heart cath yesterday and has been unable to care for her at home and that she has skin breakdown on her butt. She was recently in a short-term care facility where she was for a very short period of time until her signed her out. He states that she has been taking her blood pressure medication regularly. She is confused stating that is 1994 and does not know majority of her medical history and is unable to provide further information at this time. Subjective Subjective At this time pt is A&O x 3 - c /o pain in R hip/lat pelvis Rehab PT IP Eval Objective Appearance Patient Behavior Passive,Patient Baseline Patient Orientation Person,Place,Time Difficulty following instructions mild Speech Pattern Slurred Ambulation Patient Able to Ambulate No Balance Ability to Arise Unable Sitting Balance Steady, safe Dynamic Sitting Balance Ability Fair Dynamic Standing Balance Ability Zero Transfers Bed Transfer Ability Contact Guard/Hand Hold ROM All Extremities PT ROM Status WFL MMT All Extremities PT MMT WFL Abnormal MMT Grade 3/5 in available ROM Rehab PT IP prob,goals,plan Problems Date of Evaluation: 01/14/20 PT IP Problems Bed Mobility,Transfers Rehab Potential Rehab Potential Fair Equipment Needs Assistive Devices Wheelchair Plan PT Intervention Plan Bed Mobility,Transfers, Therapeutic Exercise PT Plan Frequency BID Duration LOS Discharge Goals Bed Transfer Ability Contact Guard/Hand Hold Discharge Plan PT Discharge Plan Pt to
--- NOTE | 2020-01-14 11:35 | HMH.OTEV ---
OT Inpatient Evaluation Rehab OT IP Evaluation Start: 01/14/20 10:06 Freq: ONCE Status: Complete Protocol: Document 01/14/20 11:28 CORTEZLILI (Rec: 01/14/20 11:35 TYLERCHRIS [id number]) Rehab OT IP Assessment Subjective History 69 year old female with longstanding HTN, hx of ischemic stroke and hx of chronic narcotic addiction and use of the past many years who is prescribed percocet from her pain clinic [place]. Patient was previously admitted to [facility] back in November and [facility]/c to [facility], however after ongoing care for 3 days she was very unhappy and took her home again MD advice. had a heart cath on 01/10/20 and patient was left home alone and did not take her blood pressure or pain medication and when arrived to ED she was in intractable pain, moaning, groaning and incoherent. 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 Subjective I want to lay down. Objective Patient Orientation Person,Place,Name,Birthday, Year Upper Extremity Gross ROM WFL Bed Mobility bed mobility-scooting,bed mobility - supine/sit,bed mobility - rolling Assist Level Minimal x 1 (25% assist) Rehab OT IP prob,goals,plan Problems Date of Evaluation: 01/14/20 OT IP Problems Bed Mobility,Balance,Self care ,Safety Rehab Potential Rehab Potential Good Equipment Needs Assistive Devices Wheelchair Plan OT intervention Plan Bed Mobility,Balance,Self care ,Safety,Therapeutic Exercise OT Plan Frequency Daily Duration LOS Discharge Goals Bed Mobility Ability Standby Assistance Discharge Plan OT Discharge Plan Recommends Patient to be d/c to SNF for rehab and possible licensed home inspector placement. Eval Complexity Eval Charge Codes 16051
[2020-01-14 11:46] LABS: POC Glucose,Bedside 237 (70-110)
--- NOTE | 2020-01-14 12:07 | SW/DCPLANNER ---
Addendum entered by Estrellita Dominguez 01/14/20 15:48: [facility] CAN NOT TAKE PATIENT BUT [facility] WILL TAKE HER BACK! I HAVE SPOKEN WITH AND EXPLAINED TO HIM THAT IF [facility] DOESN'T TAKE HER, SHE WILL NEED TO GO BACK AND HE APPEARED OK WITH THAT... HE DID WANT ME TO TRY [facility] FIRST... Original Note: SENT REFERRAL TO [facility] FOR PLACEMENT: PATIENT WAS RECENTLY AT [facility] AND WAS THERE ONLY 3 DAYS AND CHOSE TO TAKE HER BACK HOME... SHE PRESENTED INTO THE HOSPITAL IN A HYPERTENSIVE CRISIS AND NOW DOESN'T THINK HE CAN CARE FOR HER AND WISHES HER REFERRAL TO BE SENT TO [facility]... WAITING TO HEAR BACK, [facility] DID SAY THEY WOULD TAKE HER BACK BUT WANTS HER CLOSER... ANTICIPATED DISCHARGE IS FOR TUESDAY...
[2020-01-14 13:15] VITALS: BMI 32.0
[2020-01-14 16:00] VITALS: BP 187/91; PULSE 65; RESP 18; TEMP 36.6; O2SAT 96
[2020-01-14 16:10] LABS: POC Glucose,Bedside 231 (70-110)
--- NOTE | 2020-01-14 16:13 | PC.NURSE ---
Pt has been pleasant and cooperative this shift. A&O X4. Pt has complained of pain X1. Pt received Baclofen and Percocet per MAR with favorable results. Lungs CTA. O2 sats. are > 90% on room air. No edema noted. Excoriation noted to bilateral buttocks, barrier cream applied. Pt has been turned/repositioned Q2H this shift and a purwick is in place to prevent further damage from incontinence. Pt voids clear, yellow urine without issue. No BM this shift. FSBS results have been 237 and 231, both of which have required insulin coverage per sliding scale. Pt requires assistance with feeding. Appetite is decent and pt eats about 50% of all meals. 20 G peripheral IV in the LT AC is patent and SL. VSS. Call light within reach. Will continue to monitor.
[2020-01-14 19:37] VITALS: BP 169/75; PULSE 61; RESP 18; TEMP 37; O2SAT 97
[2020-01-14 20:58] LABS: POC Glucose,Bedside 277 (70-110)
--- NOTE | 2020-01-15 01:05 | HMH.DCSUM ---
General - General Admission date:: 01/11/20 Discharge date: 01/15/20 HPI HPI: 69-year-old white female with longstanding hypertension, history of ischemic stroke and history of chronic narcotic addiction and use over the past many years who is prescribed Percocet from her pain clinic in [place], Dr. Thuan Trevizo. Over the past couple of weeks she has had one admission for elevated blood pressure and intractable pain, was transferred to a local fpc for ongoing care but after 3 days she was very unhappy there and her came and took her home against my advice. Her had a heart catheterization yesterday which was fortunately fairly normal, but in the interim she was at home by herself and did not take her blood pressure or pain medicine and when he arrived home she was in intractable pain, moaning, groaning, incoherent and he brought her to the emergency department. There she was found to have malignant hypertension with blood pressure elevations in the 220 range. She was admitted to hospital. Please see notes from her recent admission of November. During that admission she normalized over the next 24 hours simply by restarting her home medications before transfer to the fpc. Hospital Course Hospital Course: Admitted for worsening debility and inability of to care for her at home. Blood pressure was severely elevated and she had signs of lack of care with worsening decubitus ulcers. She has responded well to inpatient treatment. Extensive discussion with about the patient's continued senior care needs. Plan to discharge back to [facility] for further care. Continue medications for chronic conditions including diabetes, constipation, hypercholesterolemia, among others. We will follow along with her at the fpc. Medically stable for discharge today. Patient was tested for Covid during hospitalization. Continues to have positive antibodies of unknown significance (they were positive a month ago) but is negative on nasal PCR swab again. Has no respiratory symptoms of any type or fever during admission. Objective Vital signs: Temp Pulse Resp BP Pulse Ox 98.6 F 61 18 169/75 H 97 01/14/20 19:37 01/14/20 19:37 01/14/20 19:37 01/14/20 19:37 01/14/20 19:37 Narrative: Patient is alert. Oriented x2. Garrulous and talkative but keeps saying that she does not understand her need to go to the fpc. Heart rate regular. Lungs are clear, abdomen soft. Right hemiparesis as previously noted. Results Labs on day of discharge: Labs from last 24 hours 01/14/20 01/14/20 01/14/20 20:28 15:54 11:31 POC Glucose 277 H 231 H 237 H Chlamy pneumoniae PCR Adenovirus (PCR) B. pertussis DNA (PCR) Coronavirus OC43 (PCR) Coronavirus HKU1 (PCR) Coronavirus 229E (PCR) SARS-CoV-2 (PCR) Coronavirus NL63 (PCR) Human Metapneumovir PCR Influenza A (H1) PCR Influ A (H1N1/09) PCR Influenza A (H3) PCR Influenza Type A (PCR) Influenza Type B (PCR) M. pneumoniae (PCR) Parainfluenza 1 (PCR) Parainfluenza 2 (PCR) Parainfluenza 3 (PCR) Parainfluenza 4 (PCR) RSV (PCR) Entero/Rhino (PCR) 01/14/20 01/14/20 09:27 05:34 POC Glucose 179 H Chlamy pneumoniae PCR Not detected Adenovirus (PCR) Not detected B. pertussis DNA (PCR) Not detected Coronavirus OC43 (PCR) Not detected Coronavirus HKU1 (PCR) Not detected Coronavirus 229E (PCR) Not detected SARS-CoV-2 (PCR) Not detected Coronavirus NL63 (PCR) Not detected Human Metapneumovir PCR Not detected Influenza A (H1) PCR Not detected Influ A (H1N1/09) PCR Not detected Influenza A (H3) PCR Not detected Influenza Type A (PCR) Not detected Influenza Type B (PCR) Not detected M. pneumoniae (PCR) Not detected Parainfluenza 1 (PCR) Not detected Parainfluenza 2 (PCR) Not detected Parainfluenza
[2020-01-15 03:51] VITALS: BP 162/72; PULSE 65; RESP 18; O2SAT 96
[2020-01-15 05:00] VITALS: BMI 31.8
[2020-01-15 05:29] LABS: POC Glucose,Bedside 233 (70-110)
--- NOTE | 2020-01-15 07:11 | PC.NURSE ---
patient has been resting on and off throughout shift, incontinent of urine. oriented x4. patient yelling out after repositioning, treated with prn medications. continued yelling out for approximately 15-20 min. attempted to reposition several times unsuccessfully. patient finally fell back to sleep. breath sounds clear throughout on r/a, pulses palpable +2 and regular, bowel sounds active. at bedside, unable to console patient as well.
[2020-01-15 08:00] VITALS: BP 150/64; PULSE 60; RESP 18; TEMP 36.6; O2SAT 98
[2020-01-15 11:52] LABS: POC Glucose,Bedside 241 (70-110)
[2020-01-15 16:00] VITALS: BP 147/63; PULSE 61; RESP 16; TEMP 36.4; O2SAT 95
--- NOTE | 2020-01-15 20:12 | PC.NURSE ---
1130 THIS RN PROVIDED REPORT TO CHRISTINA AT [facility]. 1145 THIS RN PHONED TRANSPORT FOR TRANSPORTATION. EMS WAS NOT ABLE TO SAP [employer] ARCHITECT PATIENT UNTIL 1600 DUE TO AN INJURED EMS PERSONNEL. PATIENT A&O X4. LUNGS DIMINISHED, PULSES EQUAL. PATIENT TOLERATED TRANSFER WELL. NO NEW CONCERNS AT THIS TIME.
== END 2020-01-15 16:15 | DRG 305 ==
LOC: ER 13:46 → 2ND 16:42
PROVIDERS: Admitting Provider Internal Medicine Adolescent Medicine; Emergency Provider Student in an Organized Health Care Education/Training Program; PCP Internal Medicine Adolescent Medicine; Visit Provider Internal Medicine Adolescent Medicine
DX: I16.0 Hypertensive urgency (principal); I69.351 Hemiplegia and hemiparesis following cerebral infarction affecting right dominant side; I10 Essential (primary) hypertension; E11.9 Type 2 diabetes mellitus without complications; Z79.4 Long term (current) use of insulin; E78.5 Hyperlipidemia, unspecified; Z79.891 Long term (current) use of opiate analgesic; L89.151 Pressure ulcer of sacral region, stage 1; Z88.8 Allergy status to other drugs, medicaments and biological substances; Z86.19 Personal history of other infectious and parasitic diseases; Z72.0 Tobacco use
CPT/HCPCS: 70450; 71045; 72170; 80048; 80053; 81001; 82962; 85025; 86328; 87581; 87633; 87798; 97110; 97165; 99284; U0003

== ENCOUNTER → 2020-04-14 12:55 | Outpatient (CLI) | payer MEDICARE, OTHER, SELFPAY ==
[2020-04-14 13:25] LABS: Basophils # 0.1 K/mm3 (0-0.2); Eosinophils # 0.1 K/mm3 (0.0-0.4); Eosinophils % 1.6 % (0.1-12.0); Hematocrit 38.3 % (37.0-47.0); Lymphocytes # 2.3 K/mm3 (0.7-4.5); Lymphocytes % 30.3 % (10-50); Mean Corpuscular HGB Conc 28.6 g/dL (31.8-35.4); Mean Corpuscular Hemoglobin 26.8 pg (27.0-31.2); Mean Corpuscular Volume 93.7 fl (81-99); Mean Platelet Volume 8.2 fl (7.4-10.4); Monocytes # 0.5 K/mm3 (0.1-1.0); Monocytes % 5.9 % (1.7-9.3); Neutrophils # 4.6 K/mm3 (1.8-7.8); Neutrophils % 61.2 % (37.0-80.0); Platelet Count 285 K/mm3 (142-424); Red Blood Count 4.09 M/mm3 (4.20-5.40); Red Cell Distribution Width 17.2 % (11.5-17.5); White Blood Count 7.6 K/mm3 (4.8-10.8)
[2020-04-14 13:38] LABS: Hemoglobin A1C 9.4 % (4.0-6.0)
[2020-04-14 14:11] LABS: Chloride 106 mmol/L (98-107); Potassium 4.2 mmoL/L (3.5-5.1); Sodium 137 mmol/L (136-145)
[2020-04-14 14:13] LABS: Alanine Aminotransferase 9 U/L (12-78); Blood Urea Nitrogen 13 mg/dl (7-17); Estimated Glomerular Filt Rate 82 ml/min (>60); GFR (African American) 100 ML/MIN (>60)
[2020-04-14 14:14] LABS: Albumin Level 3.6 g/dl (3.5-5.0); Albumin/Globulin Ratio 1.1 (1.1-1.8); Alkaline Phosphatase 85 U/L (38-126); Anion Gap 11.2 mEq/L (5-15); Aspartate Amino Transferase 14 U/L (14-36); Bilirubin,Total 0.4 mg/dl (0.2-1.3); Calcium 9.4 mg/dl (8.4-10.2); Carbon Dioxide 24 mmol/L (22.0-30.0); Cholesterol 181 mg/dl (140-200); Globulin 3.2 g/dL (1.3-3.2); Glucose 244 mg/dl (74-100); Total Protein,Serum 6.8 g/dl (6.3-8.2); Triglycerides 238 mg/dl (30-150); VLDL Cholesterol 48 mg/dL (0-40)
[2020-04-14 14:15] LABS: Chol/HDL Ratio 4.1 (1-3.5); HDL Cholesterol 44 mg/dl (40-60)
[2020-04-14 14:25] LABS: Direct LDL Cholesterol 96.07 mg/dL (100-129)
[2020-04-14 15:11] LABS: Vitamin B12 > 1000 pg/mL (239-931)
== END ==
PROVIDERS: Visit Provider Internal Medicine Adolescent Medicine
DX: E11.9 Type 2 diabetes mellitus without complications (principal); E78.5 Hyperlipidemia, unspecified; E53.8 Deficiency of other specified B group vitamins; I10 Essential (primary) hypertension; M06.9 Rheumatoid arthritis, unspecified
CPT/HCPCS: 36415; 80053; 80061; 82607; 83036; 85025

== ENCOUNTER 2020-05-26 14:52 | Emergency (ER) | payer MEDICARE, OTHER, SELFPAY ==
[2020-05-26 14:52] VITALS: BP 159/101; PULSE 87; RESP 18; TEMP 36.7; O2SAT 97; BMI 36.7
--- NOTE | 2020-05-26 15:02 | XR_ITS ---
PROCEDURE: XR SHOULDER LT MIN 2V CLINICAL INDICATION: pain COMPARISON: CR XR CHEST PORTABLE from 01/11/2020 FINDINGS: No fracture or dislocation. No lytic or blastic change. There is normal mineralization. Osteoarthritic changes are present at the acromioclavicular joint and glenohumeral joint with prominent spurring along the neck of the humerus medially Other findings:None. IMPRESSION: Degenerative change, no acute finding Dictated by: Byron Vazquez MD 05/26/2020 16:39 Byron Vazquez MD in [place] 05/26/2020 16:39
--- NOTE | 2020-05-26 15:06 | PC.NURSE ---
PT POOR HISTORIAN OF MEDICAL HX
--- NOTE | 2020-05-26 15:47 | HMH.EDEXTP ---
ED Disposition Clinical Impression: Left shoulder strain Qualifiers: Encounter type: initial encounter Qualified Code(s): S46.912A - Strain of unspecified muscle, fascia and tendon at shoulder and upper arm level, left arm, initial encounter Disposition: Home, Self-Care Condition on Discharge: Good Instructions: Shoulder Sprain Referrals: Antonio Ta MD [Primary Care Provider] - - Critical Care Critical Care Time: No Attestation: On , the high probability of a clinically significant, sudden or life threatening deterioration of the following system(s) required my full and direct attention, intervention and personal management. The time I documented below is in addition to time spent performing reported procedures but includes the following listed in this critical care notation. Medical Decision Making - Medical Records Medical records reviewed: Yes: I reviewed the patient's medical records. - Lm Inquiry Pt receiving controlled substance: Yes Lm was queried for this patient: No Reason not queried -: Lm login issues Risks and benefits of using a controlled substance: were discussed with pt by me Vital Signs: 05/26/20 14:52 05/26/20 16:14 Temperature 98.0 F Temperature Source Oral Pulse Rate 78 Pulse Rate [Right] 87 Respiratory Rate 18 Blood Pressure 197/104 H Blood Pressure [Right Radial Artery] 159/101 H Blood Pressure Mean 135 Blood Pressure Mean [Right Radial Artery] 120 02 Sat by Pulse Oximetry 97 94 L Orders (Tests/Meds): ED MEDICATIONS Discontinued Medications Generic Name Dose Route Start Last Admin Trade Name Freq PRN Reason Stop Dose Admin Hydrocodone Bitart/Acetaminophen 1 tab 05/26/20 15:02 05/26/20 15:18 Apap/Hydrocodone 325mg/7.5mg Tab PO 05/26/20 15:03 1 tab ONCE ONE Administration - Radiology Data #1 Image(s): Shoulder Image Reviewed: Yes I reviewed the patient's radiology results, Yes I discussed the image results w/the radiologist, Yes I have reviewed radiologist's interpretation Preliminary Findings: Normal/NAD - Reevaluation(s) Time: 16:48 Reevaluation #1: On reevaluation, pain is improved. Findings consistent with left shoulder strain. Patient is to follow with PCP in 24 hours. Given strict return precautions. Verbalized understanding. Medical Decision Narrative: 69-year-old female presented to the emergency department with some left shoulder pain. Patient had a injury earlier today that seems to have worsened her chronic pain. Work-up initiated. Extremity Problem HPI - General Chief complaint: Extremity Injury, Upper Stated complaint: LEFT ARM PAIN Time Seen by Provider: 05/26/20 14:55 Mode of Arrival: EMS Limitations: No Limitations Description of Symptoms (Recalled from ER Triage Doc. by RN): EMS REPORTS PT C/O LEFT ARM PAIN IN THE LAST THREE WEEKS. PT DENIES ANY RECENT FALLS. EMS REPORTS FAMILY STATED, I THINK SHE STRAINED HER ARM BY US PULLING ON HER TO GET HER UP. PT ABLE TO MOVE ARM IN ED TRIAGE. - History of Present Illness HPI Narrative: 69-year-old female presented to the emergency department with some left shoulder pain. Patient's had these for the last month or so. Apparently they were trying to move the patient earlier today and her pain got worse in her left shoulder. Patient states that it is a dull and nagging pain. Nonradiating. She has not taken anything for the pain. She denies any other injuries. No headache or change in vision. No focal weakness. No abdominal pain or vomiting. No chest pain or shortness of breath. - Related Data Previous Rx's Medication Instructions Recorded ALPRAZolam [Xanax 0.5mg tab] 0.5 mg PO DAILY #30 tab 01/15/20 Alendronate Sodium [Fosamax 70mg 70 mg PO WEEKLY 84 Days #12 tab 01/15/20 Tablet] Aspirin [Aspirin 81mg EC Tab] 81 mg PO DAILY 30 Days #30 tab 01/15/20 Baclofen [Lioresal 10mg tablet] 10 mg PO TID 30 Days #90 tab 01/15/20 Clopidogre
--- NOTE | 2020-05-26 16:12 | PC.NURSE ---
contacted radiology to request radiologist to read pt shoulder xray per ER MD request
[2020-05-26 16:14] VITALS: BP 197/104; PULSE 78; O2SAT 94
[2020-05-26 17:54] VITALS: BP 144/71; PULSE 81; RESP 18; TEMP 36.7; O2SAT 97
== END 2020-05-26 17:45 | disposition home or self-care (01) ==
PROVIDERS: Emergency Provider Emergency Medicine; PCP Internal Medicine Adolescent Medicine
DX: S46.912A Strain of unspecified muscle, fascia and tendon at shoulder and upper arm level, left arm, initial encounter (principal); X50.0XXA Overexertion from strenuous movement or load, initial encounter; Y92.019 Unspecified place in single-family (private) house as the place of occurrence of the external cause; E11.9 Type 2 diabetes mellitus without complications; F41.8 Other specified anxiety disorders; K21.9 Gastro-esophageal reflux disease without esophagitis; I10 Essential (primary) hypertension; E78.5 Hyperlipidemia, unspecified; F17.210 Nicotine dependence, cigarettes, uncomplicated; Z96.642 Presence of left artificial hip joint; Z79.899 Other long term (current) drug therapy
CPT/HCPCS: 73030; 99282

== ENCOUNTER 2020-06-28 18:44 | Emergency (ER) | payer MEDICARE, OTHER, SELFPAY ==
[2020-06-28] VITALS (10 sets, daily range): BP systolic 172–254; BP diastolic 78–145; PULSE 66–95; RESP 14–22; TEMP 38.1; O2SAT 95–98; BMI 34.3
--- NOTE | 2020-06-28 18:58 | XR_ITS ---
PROCEDURE INFORMATION: Exam: XR Chest Exam date and time: 06/28/2020 6:58 PM Age: 69 years old Clinical indication: Fever TECHNIQUE: Imaging protocol: XR of the chest. Views: 1 view. COMPARISON: CR XR CHEST PORTABLE 01/11/2020 2:16 PM FINDINGS: Lungs: Atelectatic changes within both lung bases without focal pneumonia. Pleural spaces: Unremarkable. No pleural effusion. No pneumothorax. Heart/Mediastinum: The heart demonstrates mild diffuse enlargement. Bones/joints: Postoperative changes of the thoracolumbar spine. The thoracic spine demonstrates moderate degenerative changes at multiple levels. Moderate degenerative changes of both shoulders. IMPRESSION: 1. The heart demonstrates mild diffuse enlargement. 2. Atelectatic changes within both lung bases without focal pneumonia.
[2020-06-28 19:00] LABS: Microscopic, Urine URINE MICROSCOPIC (MICROSCOPIC)
[2020-06-28 19:02] LABS: Appearance,Urine CLEAR (Clear); Bilirubin,Urine Negative (Negative); Blood, Urine Negative (Negative); Color,Urine YELLOW (Yellow); Glucose,Urine (UA) 2+ (Negative); Ketones,Urine 1+ (Negative); Leukocyte Esterase,Urine Negative (Negative); Nitrate,Urine Negative (Negative); PH,Urine 7.5 (5.0-8.5); Protein,Urine 1+ (Negative); Urobilinogen,Urine 0.2 EU/dl (0.2)
[2020-06-28 19:13] LABS: Bacteria,Urine Trace /lpf
--- NOTE | 2020-06-28 19:39 | CT_ITS ---
PROCEDURE INFORMATION: Exam: CT Head Without Contrast Exam date and time: 06/28/2020 7:39 PM Age: 69 years old Clinical indication: Altered mental status/memory loss TECHNIQUE: Imaging protocol: Computed tomography of the head without contrast. 3D rendering (Not supervised by radiologist): MIP and/or 3D reconstructed images were created by the technologist. Radiation optimization: All CT scans at this facility use at least one of these dose optimization techniques: automated exposure control; mA and/or kV adjustment per patient size (includes targeted exams where dose is matched to clinical indication); or iterative reconstruction. COMPARISON: CT HEAD/BRAIN WO CON 01/13/2020 1:10 PM FINDINGS: Brain: Age-related atrophy and chronic white matter ischemic changes, with no evidence of an acute intracranial abnormality. No hemorrhage, mass effect or midline shift. Cerebral ventricles: No ventriculomegaly. Bones/joints: No acute fracture. Paranasal sinuses: Visualized sinuses are unremarkable. No fluid levels. Mastoid air cells: Visualized mastoid air cells are well aerated. Vasculature: The vasculature demonstrates diffuse mild atherosclerotic calcification. Soft tissues: No acute changes IMPRESSION: 1. Age-related atrophy and chronic white matter ischemic changes, with no evidence of an acute intracranial abnormality. 2. No hemorrhage, mass effect or midline shift.
[2020-06-28 19:48] LABS: Basophils # 0.1 K/mm3 (0-0.2); Basophils % 0.6 % (0.1-2.0); Eosinophils # 0.1 K/mm3 (0.0-0.4); Eosinophils % 0.9 % (0.1-12.0); Hematocrit 38.3 % (37.0-47.0); Hemoglobin 11.6 g/dL (12.2-16.2); Lymphocytes # 1.5 K/mm3 (0.7-4.5); Lymphocytes % 18.2 % (10-50); Mean Corpuscular HGB Conc 30.3 g/dL (31.8-35.4); Mean Corpuscular Volume 89.2 fl (81-99); Mean Platelet Volume 7.6 fl (7.4-10.4); Monocytes # 0.4 K/mm3 (0.1-1.0); Monocytes % 4.8 % (1.7-9.3); Neutrophils # 6.4 K/mm3 (1.8-7.8); Neutrophils % 75.5 % (37.0-80.0); Platelet Count 321 K/mm3 (142-424); Red Blood Count 4.29 M/mm3 (4.20-5.40); Red Cell Distribution Width 17.4 % (11.5-17.5); White Blood Count 8.5 K/mm3 (4.8-10.8)
[2020-06-28 19:56] LABS: Alanine Aminotransferase 10 U/L (12-78); Albumin Level 4.1 g/dl (3.5-5.0); Albumin/Globulin Ratio 1.3 (1.1-1.8); Alkaline Phosphatase 74 U/L (38-126); Anion Gap 10.8 mEq/L (5-15); Aspartate Amino Transferase 18 U/L (14-36); Bilirubin,Total 0.3 mg/dl (0.2-1.3); Blood Urea Nitrogen 11 mg/dl (7-17); Calcium 9.2 mg/dl (8.4-10.2); Carbon Dioxide 24 mmol/L (22.0-30.0); Chloride 105 mmol/L (98-107); Creatinine Clearance Estimated 74 mL/min (50-200); Estimated Glomerular Filt Rate 99 ml/min (>60); GFR (African American) 119 ML/MIN (>60); Globulin 3.1 g/dL (1.3-3.2); Glucose 226 mg/dl (74-100); Lactic Acid 1.3 mmol/L (0.7-2.1); Potassium 3.8 mmoL/L (3.5-5.1); Sodium 136 mmol/L (136-145); Total Protein,Serum 7.2 g/dl (6.3-8.2)
[2020-06-28 20:01] LABS: C-Reactive Protein 7.6 mg/L (0-4)
[2020-06-28 20:14] LABS: Erythrocyte Sedimentation Rate 28 mm/hr (0-30)
[2020-06-28 20:15] LABS: Procalcitonin 0.081 ng/mL (0.0-2.0)
[2020-06-28 20:24] LABS: NT Pro Brain Natriuretic Pep. 556 pg/mL (0-125)
--- NOTE | 2020-06-28 20:49 | HMH.EDAMS ---
ED Disposition Clinical Impression: Neuropathy, cervical (radicular) Disposition: Home, Self-Care Condition on Discharge: Good Instructions: DI for Neck Pain Additional Instructions: call pcp for follow up Prescriptions: Gabapentin [Neurontin 300mg capsule] 300 mg PO TID 30 Days #90 cap Transmission Status: Received by [id number] Referrals: Antonio Ta MD [Primary Care Provider] - - Critical Care Critical Care Time: No Attestation: On 06/28/20, the high probability of a clinically significant, sudden or life threatening deterioration of the following system(s) required my full and direct attention, intervention and personal management. The time I documented below is in addition to time spent performing reported procedures but includes the following listed in this critical care notation. Medical Decision Making - Medical Records Medical records reviewed: Yes: I reviewed the patient's medical records. - Lm Inquiry Pt receiving controlled substance: No Vital Signs: 06/28/20 18:45 06/28/20 19:30 06/28/20 20:00 Temperature 100.5 F H Temperature Source Rectal Pulse Rate 66 87 Pulse Rate [Radial] 79 Respiratory Rate 18 18 16 Blood Pressure 254/94 H 172/145 H Blood Pressure [Right Arm] 222/78 H Blood Pressure Mean [Right Arm] 126 Blood Pressure Source Blood Pressure Position 02 Sat by Pulse Oximetry 96 95 95 Oxygen Delivery Method Room Air 06/28/20 20:30 06/28/20 21:00 06/28/20 21:30 Temperature Temperature Source Pulse Rate 94 H 88 94 H Pulse Rate [Radial] Respiratory Rate 15 17 21 Blood Pressure 190/110 H 181/126 H 249/115 H Blood Pressure [Right Arm] Blood Pressure Mean [Right Arm] Blood Pressure Source Blood Pressure Position 02 Sat by Pulse Oximetry 97 96 97 Oxygen Delivery Method 06/28/20 21:46 06/28/20 22:00 06/28/20 22:27 Temperature Temperature Source Pulse Rate 72 95 H 92 H Pulse Rate [Radial] Respiratory Rate 22 14 Blood Pressure 180/80 H 179/96 H 215/105 H Blood Pressure [Right Arm] Blood Pressure Mean [Right Arm] Blood Pressure Source Manual Cuff/ Auscultation Blood Pressure Position Supine 02 Sat by Pulse Oximetry 98 97 Oxygen Delivery Method - Lab Data Lab results reviewed: Yes: I reviewed the patient's lab results. Lab Results 06/28/20 18:45: Urine Color Yellow, Urine Appearance Clear, Urine pH 7.5, Ur Specific Lawrence 1.020, Urine Protein 1+, Urine Glucose (UA) 2+, Urine Ketones 1+, Urine Blood Negative, Urine Nitrate Negative, Urine Bilirubin Negative, Urine Urobilinogen 0.2, Ur Leukocyte Esterase Negative, Urine RBC None, Urine WBC 3-5, Ur Squamous Epith Cells None, Urine Bacteria Trace 06/28/20 19:20: NT-Pro-B Natriuret Pep 556 H 06/28/20 19:40: WBC 8.5, RBC 4.29, Hgb 11.6 L, Hct 38.3, MCV 89.2, MCH 27.0, MCHC 30.3 L, RDW 17.4, Plt Count 321, MPV 7.6, Neut % (Auto) 75.5, Lymph % (Auto) 18.2, [place] % (Auto) 4.8, Eos % (Auto) 0.9, Baso % (Auto) 0.6, Neut # (Auto) 6.4, Lymph # (Auto) 1.5, [place] # (Auto) 0.4, Eos # (Auto) 0.1, Baso # (Auto) 0.1 06/28/20 19:40: Sodium 136, Potassium 3.8, Chloride 105, Carbon Dioxide 24, Anion Gap 10.8, BUN 11, Creatinine 0.60, Estimated Creat Clear 74, Estimated GFR 99, Est GFR ( Amer) 119, Glucose 226 H, Calcium 9.2, Total Bilirubin 0.3, AST 18, ALT 10 L, Alkaline Phosphatase 74, C-Reactive Protein 7.6 H, Total Protein 7.2, Albumin 4.1, Globulin 3.1, Albumin/Globulin Ratio 1.3 06/28/20 19:40: Lactate 1.3 06/28/20 19:40: Procalcitonin 0.081 06/28/20 19:40: ESR 28 Result diagrams: 06/28/20 19:40 06/28/20 19:40 Orders (Tests/Meds): ED MEDICATIONS Generic Name Dose Route Start Last Admin Trade Name Freq PRN Reason Stop Dose Admin Sodium Chloride 1,000 mls @ 999 mls/hr 06/28/20 19:00 06/28/20 19:00 Sod Chlor 0.9% 1000ml Bag IV 06/28/20 20:00 999 mls/hr .[id number] DANITZA Administration Discontinued Medications Generic Name Do
--- NOTE | 2020-06-28 20:50 | XR_ITS ---
PROCEDURE INFORMATION: Exam: XR Left Shoulder Exam date and time: 06/28/2020 8:50 PM Age: 69 years old Clinical indication: Shoulder; Left; Patient HX: AMS, pain, best images TECHNIQUE: Imaging protocol: XR Left shoulder. Views: 2 or more views. COMPARISON: CR XR SHOULDER LT MIN 2V 05/26/2020 3:36 PM FINDINGS: Bones/joints: Advanced degenerative changes of the left glenohumeral joint. There is narrowing of the acromial humeral distance which may be consistent with chronic rotator cuff abnormality. There is no evidence of acute fracture. There is no evidence of joint malalignment or dislocation. Soft tissues: Normal. IMPRESSION: 1. Advanced degenerative changes of the left glenohumeral joint. 2. There is narrowing of the acromial humeral distance which may be consistent with chronic rotator cuff abnormality. 3. No evidence of acute fracture. 4. No evidence of acute dislocation.
--- NOTE | 2020-06-28 20:50 | CT_ITS ---
PROCEDURE INFORMATION: Exam: CT Cervical Spine Without Contrast Exam date and time: 06/28/2020 8:50 PM Age: 69 years old Clinical indication: Neck pain; Patient HX: AMS, pain, no history TECHNIQUE: Imaging protocol: Computed tomography images of the cervical spine without contrast. Radiation optimization: All CT scans at this facility use at least one of these dose optimization techniques: automated exposure control; mA and/or kV adjustment per patient size (includes targeted exams where dose is matched to clinical indication); or iterative reconstruction. COMPARISON: SEARCH ENGINE OPTIMIZER/O MRI-C-SPINE W/O 04/17/2015 1:11 PM FINDINGS: Bones/joints: There is no evidence of acute fracture. Discs/Spinal canal/Neural foramina: The cervical spine demonstrates moderate degenerative changes at multiple levels. Disc space narrowing and bilateral neural foraminal narrowing noted at C3-C4 C5-C6. The facet joints demonstrate moderate degenerative narrowing and sclerosis. Lungs: Lung apices are normal. Vasculature: The vasculature demonstrates diffuse mild atherosclerotic calcification. Soft tissues: Unremarkable. IMPRESSION: 1. The cervical spine demonstrates moderate degenerative changes at multiple levels. 2. No evidence of acute fracture.
[2020-06-29 00:13] VITALS: BP 210/111; PULSE 81; RESP 14; TEMP 37.5; O2SAT 97
== END 2020-06-29 00:13 | disposition home or self-care (01) ==
PROVIDERS: Emergency Provider Family Medicine; PCP Internal Medicine Adolescent Medicine
DX: M54.12 Radiculopathy, cervical region (principal); R06.02 Shortness of breath; I10 Essential (primary) hypertension; E78.5 Hyperlipidemia, unspecified; Z96.642 Presence of left artificial hip joint; K21.9 Gastro-esophageal reflux disease without esophagitis
CPT/HCPCS: 70450; 71045; 72125; 73030; 80053; 81001; 83605; 83880; 84145; 85025; 85651; 86140; 87040; 96365; 96375; 99283

== ENCOUNTER → 2020-10-16 16:12 | Outpatient (CLI) | payer MEDICARE, OTHER, SELFPAY ==
[2020-10-16 16:26] LABS: Microscopic, Urine URINE MICROSCOPIC (MICROSCOPIC)
--- NOTE | 2020-10-16 16:40 | XR_ITS ---
PROCEDURE: XR CHEST 2V CLINICAL HISTORY: COPD BRONCHITIS, ORTHOPNEA COMPARISON: CT CHESTW CT chest w con from 01/31/2018 CR XR CHEST PORTABLE from 12/18/2019 CR XR CHEST PORTABLE from 01/11/2020 CR XR CHEST PORTABLE from 06/28/2020 FINDINGS: There are low lung volumes. Patient is tilted toward the right. There is mild cardiomegaly without failure. No lobar consolidation or collapse. There is minimal chronic blunting of the right CP angle. Inter pedicular screws with connecting rods noted in the mid and lower thoracic spine. Mild wedging T7 unchanged from 01/31/2018 CT scan Degenerative changes of the shoulders. IMPRESSION: Cardiomegaly with minimal blunting of the right CP angle which may represent a small effusion. There are low lung volumes. Mild chronic wedging of T7 Dictated by: Byron Vazquez MD 10/16/2020 16:58 Byron Vazquez MD in [place] 10/16/2020 16:58
[2020-10-16 17:00] LABS: Appearance,Urine CLOUDY (Clear); Bilirubin,Urine Negative (Negative); Blood, Urine 3+ (Negative); Color,Urine YELLOW (Yellow); Glucose,Urine (UA) 3+ (Negative); Ketones,Urine TRACE (Negative); Leukocyte Esterase,Urine 1+ (Negative); Nitrate,Urine Negative (Negative); PH,Urine 5.5 (5.0-8.5); Protein,Urine Negative (Negative); Urobilinogen,Urine 0.2 EU/dl (0.2)
[2020-10-16 17:07] LABS: Basophils # 0.1 K/mm3 (0-0.2); Basophils % 0.9 % (0.1-2.0); Eosinophils # 0.1 K/mm3 (0.0-0.4); Eosinophils % 0.6 % (0.1-12.0); Hematocrit 39.8 % (37.0-47.0); Hemoglobin 11.7 g/dL (12.2-16.2); Lymphocytes # 1.8 K/mm3 (0.7-4.5); Lymphocytes % 21.4 % (10-50); Mean Corpuscular HGB Conc 29.5 g/dL (31.8-35.4); Mean Corpuscular Hemoglobin 27.1 pg (27.0-31.2); Mean Platelet Volume 8.1 fl (7.4-10.4); Monocytes # 0.5 K/mm3 (0.1-1.0); Monocytes % 5.6 % (1.7-9.3); Neutrophils # 6.1 K/mm3 (1.8-7.8); Neutrophils % 71.5 % (37.0-80.0); Platelet Count 370 K/mm3 (142-424); Red Blood Count 4.32 M/mm3 (4.20-5.40); Red Cell Distribution Width 17.2 % (11.5-17.5); White Blood Count 8.5 K/mm3 (4.8-10.8)
[2020-10-16 17:39] LABS: Alanine Aminotransferase 11 U/L (12-78); Albumin Level 3.7 g/dl (3.5-5.0); Albumin/Globulin Ratio 1.2 (1.1-1.8); Alkaline Phosphatase 78 U/L (38-126); Anion Gap 16.7 mEq/L (5-15); Aspartate Amino Transferase 17 U/L (14-36); Bilirubin,Total 0.3 mg/dl (0.2-1.3); Blood Urea Nitrogen 13 mg/dl (7-17); Calcium 8.9 mg/dl (8.4-10.2); Carbon Dioxide 19 mmol/L (22.0-30.0); Chloride 101 mmol/L (98-107); Estimated Glomerular Filt Rate 99 ml/min (>60); GFR (African American) 119 ML/MIN (>60); Globulin 3.1 g/dL (1.3-3.2); Potassium 4.7 mmoL/L (3.5-5.1); Sodium 132 mmol/L (136-145); Total Protein,Serum 6.8 g/dl (6.3-8.2)
[2020-10-16 17:49] LABS: NT Pro Brain Natriuretic Pep. 185 pg/mL (0-125)
[2020-10-16 17:55] LABS: Glucose 434 mg/dl (74-100)
[2020-10-16 18:06] LABS: Bacteria,Urine 4+ /lpf; Squamous Epithelial Cell,Urine Occasional #/hpf (0-5)
[2020-10-16 18:10] LABS: Thyroid Stimulating Hormone 1.59 uIU/mL (0.465-4.68)
[2020-10-16 18:29] LABS: Vitamin B12 292 pg/mL (239-931)
== END ==
PROVIDERS: Visit Provider Internal Medicine Adolescent Medicine
DX: R06.01 Orthopnea (principal); J44.9 Chronic obstructive pulmonary disease, unspecified; E53.8 Deficiency of other specified B group vitamins; R30.0 Dysuria; Z79.899 Other long term (current) drug therapy
CPT/HCPCS: 36415; 71046; 80053; 81001; 82607; 83880; 84443; 85025; 87086; 87088; 87186

== ENCOUNTER → 2020-12-15 16:26 | Outpatient (CLI) | payer MEDICARE, SELFPAY ==
[2020-12-15 16:30] LABS: Microscopic, Urine URINE MICROSCOPIC (MICROSCOPIC)
[2020-12-15 17:29] LABS: Anion Gap 15.3 mEq/L (5-15); Blood Urea Nitrogen 10 mg/dl (7-17); Calcium 9.2 mg/dl (8.4-10.2); Carbon Dioxide 22 mmol/L (22.0-30.0); Chloride 106 mmol/L (98-107); Estimated Glomerular Filt Rate 98 ml/min (>60); GFR (African American) 119 ML/MIN (>60); Glucose 265 mg/dl (74-100); Potassium 4.3 mmoL/L (3.5-5.1); Sodium 139 mmol/L (136-145)
[2020-12-15 18:01] LABS: Appearance,Urine CLOUDY (Clear); Bilirubin,Urine Negative (Negative); Blood, Urine 2+ (Negative); Color,Urine DK YELLOW (Yellow); Glucose,Urine (UA) TRACE (Negative); Ketones,Urine Negative (Negative); Leukocyte Esterase,Urine 2+ (Negative); Nitrate,Urine Negative (Negative); Protein,Urine 1+ (Negative); Urobilinogen,Urine 0.2 EU/dl (0.2)
[2020-12-15 18:25] LABS: Bacteria,Urine 1+ /lpf; Squamous Epithelial Cell,Urine Occasional #/hpf (0-5); WBC,Urine TNTC #/hpf (0-3)
== END ==
PROVIDERS: Visit Provider Internal Medicine Adolescent Medicine
DX: E11.9 Type 2 diabetes mellitus without complications (principal); R30.0 Dysuria; Z79.84 Long term (current) use of oral hypoglycemic drugs
CPT/HCPCS: 36415; 80048; 81001; 87086

== ENCOUNTER → 2021-02-12 13:29 | Outpatient (CLI) | payer MEDICARE, SELFPAY ==
[2021-02-12 14:15] LABS: Basophils # 0.1 K/mm3 (0-0.2); Basophils % 1.3 % (0.1-2.0); Eosinophils # 0.1 K/mm3 (0.0-0.4); Eosinophils % 0.6 % (0.1-12.0); Hematocrit 40.5 % (37.0-47.0); Hemoglobin 12.3 g/dL (12.2-16.2); Lymphocytes # 2.4 K/mm3 (0.7-4.5); Lymphocytes % 25.5 % (10-50); Mean Corpuscular HGB Conc 30.4 g/dL (31.8-35.4); Mean Corpuscular Hemoglobin 27.9 pg (27.0-31.2); Mean Corpuscular Volume 91.9 fl (81-99); Mean Platelet Volume 7.7 fl (7.4-10.4); Monocytes # 0.5 K/mm3 (0.1-1.0); Neutrophils # 6.4 K/mm3 (1.8-7.8); Neutrophils % 67.6 % (37.0-80.0); Platelet Count 391 K/mm3 (142-424); Red Blood Count 4.41 M/mm3 (4.20-5.40); Red Cell Distribution Width 17.5 % (11.5-17.5); White Blood Count 9.5 K/mm3 (4.8-10.8)
[2021-02-12 15:01] LABS: Alanine Aminotransferase 15 U/L (12-78); Albumin Level 4.2 g/dl (3.5-5.0); Albumin/Globulin Ratio 1.3 (1.1-1.8); Alkaline Phosphatase 86 U/L (38-126); Anion Gap 14.8 mEq/L (5-15); Aspartate Amino Transferase 21 U/L (14-36); Bilirubin,Total 0.4 mg/dl (0.2-1.3); Blood Urea Nitrogen 10 mg/dl (7-17); Calcium 9.8 mg/dl (8.4-10.2); Carbon Dioxide 22 mmol/L (22.0-30.0); Chloride 104 mmol/L (98-107); Chol/HDL Ratio 3.1 (1-3.5); Cholesterol 172 mg/dl (140-200); Estimated Glomerular Filt Rate 121 ml/min (>60); GFR (African American) 147 ML/MIN (>60); Globulin 3.2 g/dL (1.3-3.2); Glucose 212 mg/dl (74-100); HDL Cholesterol 55 mg/dl (40-60); Potassium 4.8 mmoL/L (3.5-5.1); Sodium 136 mmol/L (136-145); Total Protein,Serum 7.4 g/dl (6.3-8.2); Triglycerides 196 mg/dl (30-150); VLDL Cholesterol 39 mg/dL (0-40)
[2021-02-12 15:12] LABS: Direct LDL Cholesterol 82.67 mg/dL (100-129)
[2021-02-12 15:27] LABS: Hemoglobin A1C 10.4 % (4.0-6.0)
== END ==
PROVIDERS: Visit Provider Internal Medicine Adolescent Medicine
DX: E11.8 Type 2 diabetes mellitus with unspecified complications (principal); I63.9 Cerebral infarction, unspecified; Z79.84 Long term (current) use of oral hypoglycemic drugs
CPT/HCPCS: 36415; 80053; 80061; 83036; 85025

== ENCOUNTER → 2021-08-27 06:13 | Outpatient (CLI) | payer MEDICARE, SELFPAY ==
[2021-08-26 17:16] LABS: Basophils # 0.1 K/mm3 (0-0.2); Basophils % 0.8 % (0.1-2.0); Eosinophils # 0.1 K/mm3 (0.0-0.4); Eosinophils % 0.7 % (0.1-12.0); Hematocrit 41.8 % (37.0-47.0); Hemoglobin 13.3 g/dL (12.2-16.2); Lymphocytes # 2.4 K/mm3 (0.7-4.5); Lymphocytes % 18.6 % (10-50); Mean Corpuscular HGB Conc 31.8 g/dL (31.8-35.4); Mean Corpuscular Hemoglobin 31.6 pg (27.0-31.2); Mean Corpuscular Volume 99.4 fl (81-99); Mean Platelet Volume 7.6 fl (7.4-10.4); Monocytes # 0.5 K/mm3 (0.1-1.0); Monocytes % 3.8 % (1.7-9.3); Neutrophils # 9.8 K/mm3 (1.8-7.8); Platelet Count 530 K/mm3 (142-424); Red Cell Distribution Width 14.5 % (11.5-17.5); White Blood Count 12.8 K/mm3 (4.8-10.8)
[2021-08-26 17:33] LABS: Alanine Aminotransferase 11 U/L (12-78); Albumin Level 3.5 g/dl (3.5-5.0); Albumin/Globulin Ratio 1.1 (1.1-1.8); Alkaline Phosphatase 106 U/L (38-126); Anion Gap 13.2 mEq/L (5-15); Aspartate Amino Transferase 15 U/L (14-36); Blood Urea Nitrogen 14 mg/dl (7-17); Calcium 9.7 mg/dl (8.4-10.2); Carbon Dioxide 26 mmol/L (22.0-30.0); Chloride 104 mmol/L (98-107); Chol/HDL Ratio 4.3 (1-3.5); Cholesterol 186 mg/dl (140-200); Estimated Glomerular Filt Rate 82 ml/min (>60); GFR (African American) 100 ML/MIN (>60); Globulin 3.2 g/dL (1.3-3.2); Glucose 170 mg/dl (74-100); HDL Cholesterol 43 mg/dl (40-60); Potassium 5.2 mmoL/L (3.5-5.1); Sodium 138 mmol/L (136-145); Total Protein,Serum 6.7 g/dl (6.3-8.2); Triglycerides 320 mg/dl (30-150); VLDL Cholesterol 64 mg/dL (0-40)
[2021-08-26 17:44] LABS: Direct LDL Cholesterol 82.44 mg/dL (100-129)
[2021-08-26 17:49] LABS: Free T4 (Free Thyroxine) 0.89 ng/dl (0.78-2.19)
[2021-08-26 17:57] LABS: Bilirubin,Total < 0.1 mg/dl (0.2-1.3)
[2021-08-26 19:37] LABS: Hemoglobin A1C 9.2 % (4.0-6.0)
== END ==
PROVIDERS: PCP Emergency Medicine; Visit Provider Emergency Medicine
DX: E66.9 Obesity, unspecified (principal); Z79.891 Long term (current) use of opiate analgesic; R41.82 Altered mental status, unspecified; Z68.31 Body mass index [BMI] 31.0-31.9, adult
CPT/HCPCS: 80053; 80061; 83036; 84439; 84443; 85025

== ENCOUNTER → 2021-09-22 16:19 | Outpatient (CLI) | payer MEDICARE, SELFPAY ==
--- NOTE | 2021-09-22 16:19 | MM_ITS ---
PROCEDURE INFORMATION: Exam: MG Bilateral Screening 3D Mammography Exam date and time: 09/22/2021 4:12 PM Age: 70 years old Clinical indication: Screening examination TECHNIQUE: Imaging protocol: Bilateral Screening tomosynthesis and 2D mammography including computer-aided detection (CAD) when performed. COMPARISON: 1. MG MM DIG MAMM DX UNILAT LT CAD 12/13/2019 2:05 PM 2. MG MM DIG SCREENING MAMM BI W/CAD 11/15/2019 3:44 PM FINDINGS: MAMMOGRAPHY: Breast composition: There are scattered areas of fibroglandular density. Mass: None. Architectural distortion: None. Calcifications: No suspicious calcifications. Asymmetric density: None. Skin thickening: None. Axillary adenopathy: None. IMPRESSION: No mammographic evidence of malignancy. Annual screening is recommended unless otherwise clinically indicated. ASSESSMENT: BI-RADS Category 1: Negative
== END ==
PROVIDERS: PCP Emergency Medicine; Visit Provider Emergency Medicine
DX: Z12.31 Encounter for screening mammogram for malignant neoplasm of breast (principal)
CPT/HCPCS: 77063; 77067

== ENCOUNTER → 2021-10-01 06:19 | Outpatient (CLI) | payer MEDICARE, SELFPAY | PROVIDERS: PCP Emergency Medicine; Visit Provider Emergency Medicine | DX: R10.9 Unspecified abdominal pain (principal) ==

== ENCOUNTER → 2021-10-01 14:40 | Outpatient (CLI) | payer MEDICARE, SELFPAY ==
[2021-10-02 11:00] LABS: Microscopic, Urine URINE MICROSCOPIC (MICROSCOPIC)
[2021-10-02 11:09] LABS: Appearance,Urine CLEAR (Clear); Bilirubin,Urine Negative (Negative); Blood, Urine Negative (Negative); Color,Urine YELLOW (Yellow); Glucose,Urine (UA) Negative (Negative); Ketones,Urine Negative (Negative); Leukocyte Esterase,Urine 1+ (Negative); Nitrate,Urine Negative (Negative); Protein,Urine Negative (Negative); Urobilinogen,Urine 0.2 EU/dl (0.2)
[2021-10-02 11:41] LABS: Bacteria,Urine 1+ /lpf; RBC,Urine Occasional #/hpf (0-3)
== END ==
PROVIDERS: PCP Emergency Medicine; Visit Provider Emergency Medicine
DX: R82.90 Unspecified abnormal findings in urine (principal); R35.0 Frequency of micturition; N39.0 Urinary tract infection, site not specified; B96.29 Other Escherichia coli [E. coli] as the cause of diseases classified elsewhere; B96.1 Klebsiella pneumoniae [K. pneumoniae] as the cause of diseases classified elsewhere
CPT/HCPCS: 81001; 87086; 87088; 87186

== ENCOUNTER 2021-10-24 18:39 | Inpatient (IN) | payer MEDICARE, SELFPAY ==
[2021-10-24 18:41] VITALS: BP 151/62; PULSE 77; RESP 16; TEMP 36.8; O2SAT 98; BMI 30.1
--- NOTE | 2021-10-24 18:58 | XR_ITS ---
PROCEDURE INFORMATION: Exam: XR Right Knee Exam date and time: 10/24/2021 7:21 PM Age: 70 years old Clinical indication: Pain; Knee; Right; Prior surgery; Surgery date: 6+ months; Additional info: Pain no known trauma TECHNIQUE: Imaging protocol: Radiologic exam of the Right knee. Views: 3 views. COMPARISON: US VARPH ARTERIAL/[id number] 06/23/2015 8:00 AM FINDINGS: There is an arthroplasty noted with components in good position. No evidence for loosening or fracture. There is no periosteal reaction or other acute bone abnormality. The alignment appears anatomic. Osteopenia. The soft tissues are grossly unremarkable. IMPRESSION: Arthroplasty in good position. No acute bone abnormality.
[2021-10-24 19:00] VITALS: BP 178/58; PULSE 78; RESP 18; TEMP 36.8; O2SAT 98; BMI 25.7
--- NOTE | 2021-10-24 19:01 | XR_ITS ---
PROCEDURE INFORMATION: Exam: XR Right Hip Exam date and time: 10/24/2021 7:20 PM Age: 70 years old Clinical indication: Hip pain; Right hip; Additional info: Pain no known trauma TECHNIQUE: Imaging protocol: Radiologic exam of the Right hip. Views: 2 or 3 views hip with pelvis when performed. COMPARISON: CR XR PELVIS 1-2V 01/11/2020 2:16 PM FINDINGS: Bones/joints: Moderate degenerative changes with no fracture or focal bony lesion seen. Nondisplaced fractures in osteopenic patients can be initially occult on xray. Follow up as clinically indicated. Left hip prosthesis appears unremarkable. Lumbosacral hardware. Lucencies surrounding the sacral screws are similar previous consistent with some degree of chronic loosening. Soft tissues: Unremarkable. IMPRESSION: 1. Moderate degenerative changes with no fracture or focal bony lesion seen. Nondisplaced fractures in osteopenic patients can be initially occult on xray. Follow up as clinically indicated. 2. Lumbosacral hardware. Lucencies surrounding the sacral screws are similar previous consistent with some degree of chronic loosening.
[2021-10-24 19:22] VITALS: BMI 31.1
--- NOTE | 2021-10-24 19:26 | PC.NURSE ---
pt gone to xray
--- NOTE | 2021-10-24 19:37 | CT_ITS ---
PROCEDURE INFORMATION: Exam: CT Right Lower Extremity Without Contrast, Hip Exam date and time: 10/24/2021 7:40 PM Age: 70 years old Clinical indication: Pain; Hip; Right; Additional info: Pain no known trauma TECHNIQUE: Imaging protocol: CT of the Right lower extremity without contrast was performed. Exam focused on the hip. Radiation optimization: All CT scans at this facility use at least one of these dose optimization techniques: automated exposure control; mA and/or kV adjustment per patient size (includes targeted exams where dose is matched to clinical indication); or iterative reconstruction. COMPARISON: CR XR HIP RT 2-3V W/PELVIS 10/24/2021 7:20 PM FINDINGS: Bones/joints: Osteopenia and moderate osteoarthritis without fracture or subluxation. Lumbar and sacral hardware. Well-defined lucency surrounding the lower lumbar and the sacral screws suggest some degree of loosening. Soft tissues: Normal. IMPRESSION: 1. Osteopenia and moderate osteoarthritis without fracture or subluxation. 2. Lumbar and sacral hardware. Well-defined lucency surrounding the lower lumbar and the sacral screws suggest some degree of loosening.
[2021-10-24 20:00] VITALS: BP 155/72; PULSE 71; O2SAT 98
--- NOTE | 2021-10-24 20:10 | HMH.EDGENADL ---
Discharge Plan Disposition Patient Disposition: Admitted As Inpatient Chief Complaint: PAIN Clinical Impressions Clinical Impression: PVD (peripheral vascular disease), Ischemia of foot Discharge ED Provider: Tawanda Cortez General Adult HPI General Chief complaint: PAIN Stated complaint: R knee and thigh pain Time Seen by Provider: 10/24/21 20:10 Mode of Arrival: Wheelchair Source of Information: Patient, Relative and Medical Record Limitations: No Limitations Description of Symptoms (Recalled from ER Triage Doc. by RN): PATIENT C/O RIGHT KNEE AND HIP PAIN X 3-4 DAYS. FAMILY STATES PATIENT HAS NOT FALLEN OR OTHERWISE INJURED HERSELF, BUT STATES SHE IS ROLLED ONTO THAT SIDE WHEN PLACING HER ON BEDPAN. History of Present Illness HPI narrative: rt hip and knee pain over the last few days w/o trauma or rash and no fever - Onset (ago): day(s) Location: lower extremity Radiation: extremity Severity: moderate Associated symptoms: denies other symptoms Related Data Home Medications Medication Instructions Recorded Confirmed alprazolam 0.5 mg tablet 0.5 mg PO DAILY Anxiety 10/25/21 10/25/21 gabapentin 300 mg capsule 300 mg PO TID Pain 10/25/21 10/25/21 hydroxyzine HCl 10 mg tablet 10 mg PO BID . 10/25/21 10/25/21 insulin aspar prt-insulin aspart 12 unit SQ DAILY Diabetes 10/25/21 10/25/21 100 unit/mL (70-30) subcutaneous soln (Novolog Mix 70-30 U-100 Insuln) insulin glargine 100 32 unit SQ DAILY Diabetes 10/25/21 10/25/21 unit-lixisenatide 33 mcg/mL subcutaneous pen (Soliqua 100/33) lactulose 20 gram/30 mL oral 20 g PO .every other day . 10/25/21 10/25/21 solution oxycodone-acetaminophen 10 mg-325 1 each PO Q6 Pain 10/25/21 10/25/21 mg tablet polyethylene glycol 3350 17 17 g PO DAILY bowels 10/25/21 10/25/21 gram/dose oral powder (Miralax) prednisone 5 mg tablet 5 mg PO DAILY . 10/25/21 10/25/21 valsartan 80 mg tablet 80 mg PO DAILY High blood pressure 10/25/21 10/25/21 Previous Rx's Medication Instructions Recorded alendronate 70 mg tablet 70 mg PO WEEKLY Osteoporosis 84 01/15/20 days #12 tabs aspirin 81 mg tablet,delayed 81 mg PO DAILY HEART HEALTH 30 01/15/20 release days #30 tabs baclofen 10 mg tablet 10 mg PO TID muscle relaxer 30 01/15/20 days #90 tabs carvedilol 25 mg tablet 12.5 mg PO BID Hypertension 30 01/15/20 days #60 tabs cyanocobalamin (vitamin B-12) 1,000 mcg IM WEEKLY Supplement 30 01/15/20 1,000 mcg/mL injection solution days #1 vial docusate sodium 250 mg capsule 250 mg PO BID CONSTIPATION 30 days 01/15/20 #60 caps melatonin-pyridoxine HCl (vitamin 1 each PO HS SLEEP 30 days #30 tabs 01/15/20 B6) 5 mg-10 mg tablet metformin 1,000 mg tablet 1,000 mg PO BIDWM Diabetes 30 days 01/15/20 #60 tabs ondansetron HCl 4 mg tablet 4 mg PO QIDP PRN Nausea And 01/15/20 Vomiting 30 days #60 tabs paroxetine HCl 20 mg tablet 60 mg PO HS MOOD 30 days #30 tabs 01/15/20 simvastatin 40 mg tablet 40 mg PO HS Cholesterol 30 days 01/15/20 #30 tabs topiramate 50 mg tablet 50 mg PO HS headaches 30 days #30 01/15/20 tabs ondansetron HCl 4 mg tablet 4 mg PO Q8H PRN nausea and 08/26/21 vomiting #30 tabs Allergies Allergy/AdvReac Type Severity Reaction Status Date / Time cefuroxime [From CEFTIN] Allergy Mild Verified 10/07/21 11:04 [facility] Medical History (Updated 10/25/21 @ 01:35 by Tawanda Cortez MD) Abnormal electrocardiography Chest pain Dyspnea Gastroesophageal reflux disease HTN (hypertension) Social History Smoking Status: Never smoker alcohol intake: former substance use type: denies use current occupational status: retired Travel in the last 8 weeks: Inside the [place] household members: spouse housing: other caffeine: No ROS Obtained: Yes All systems reviewed & no additional complaints except as documented Physical Exam General General appearance: alert Head Head exam: normocephalic Eye Eye exam: Present PER
--- NOTE | 2021-10-24 20:42 | CT_ITS ---
PROCEDURE INFORMATION: Exam: CT Head Without Contrast Exam date and time: 10/24/2021 9:05 PM Age: 70 years old Clinical indication: Headache not specified; Patient HX: Prior stroke back and neck pain tonight; Additional info: Pain no known trauma TECHNIQUE: Imaging protocol: Computed tomography of the head without contrast. Radiation optimization: All CT scans at this facility use at least one of these dose optimization techniques: automated exposure control; mA and/or kV adjustment per patient size (includes targeted exams where dose is matched to clinical indication); or iterative reconstruction. COMPARISON: CT HEAD/BRAIN WO CON 06/28/2020 7:49 PM FINDINGS: Brain: Atrophy and chronic small vessel ischemic changes. No hemorrhage. No mass effect or midline shift. Cerebral ventricles: No ventriculomegaly. Paranasal sinuses: Visualized sinuses are unremarkable. No fluid levels. Mastoid air cells: Visualized mastoid air cells are well aerated. Bones/joints: Unremarkable. No acute fracture. Soft tissues: Unremarkable. IMPRESSION: Chronic changes in the brain but no acute intracranial abnormality.
--- NOTE | 2021-10-24 20:42 | CT_ITS ---
PROCEDURE INFORMATION: Exam: CT Lumbar Spine Without Contrast Exam date and time: 10/24/2021 9:12 PM Age: 70 years old Clinical indication: Low back pain; Prior surgery; Surgery date: 6+ months; Additional info: Pain no known trauma TECHNIQUE: Imaging protocol: Computed tomography of the lumbar spine without contrast. Radiation optimization: All CT scans at this facility use at least one of these dose optimization techniques: automated exposure control; mA and/or kV adjustment per patient size (includes targeted exams where dose is matched to clinical indication); or iterative reconstruction. COMPARISON: CT THORACIC SPINE WO CON 10/24/2021 9:10 PM FINDINGS: Bones/joints: No lumbar fracture. Thoracolumbar and upper sacral rods. Lucency again evident around the sacral screws suggesting chronic loosening. Severe osteopenia. Fusion of the L1-L2 L3 and L4 vertebral bodies. Anterolisthesis 10 mm L4 on L5. Vasculature: Atherosclerosis. Mild scoliosis. Soft tissues: Unremarkable. IMPRESSION: No lumbar fracture.
--- NOTE | 2021-10-24 20:42 | CT_ITS ---
PROCEDURE INFORMATION: Exam: CT Cervical Spine Without Contrast Exam date and time: 10/24/2021 9:08 PM Age: 70 years old Clinical indication: Neck pain; Additional info: Pain no known trauma TECHNIQUE: Imaging protocol: Computed tomography of the cervical spine without contrast. Radiation optimization: All CT scans at this facility use at least one of these dose optimization techniques: automated exposure control; mA and/or kV adjustment per patient size (includes targeted exams where dose is matched to clinical indication); or iterative reconstruction. COMPARISON: CT CERVICAL SPINE WO CON 06/28/2020 10:10 PM FINDINGS: Bones/joints: No cervical fracture. Moderate degenerative change most pronounced C3-C4 without CT evidence of critical stenosis. Lungs: Lung apices are normal. Soft tissues: Unremarkable. IMPRESSION: No cervical fracture.
--- NOTE | 2021-10-24 20:42 | CT_ITS ---
PROCEDURE INFORMATION: Exam: CT Thoracic Spine Without Contrast Exam date and time: 10/24/2021 9:10 PM Age: 70 years old Clinical indication: Pain in thoracic spine; Without myelpathy or radiculopathy; Prior surgery; Surgery date: 6+ months; Patient HX: Prior stroke cant get arms above head; Additional info: Pain no known trauma TECHNIQUE: Imaging protocol: Computed tomography of the thoracic spine without contrast. Radiation optimization: All CT scans at this facility use at least one of these dose optimization techniques: automated exposure control; mA and/or kV adjustment per patient size (includes targeted exams where dose is matched to clinical indication); or iterative reconstruction. COMPARISON: CT CERVICAL SPINE WO CON 10/24/2021 9:08 PM FINDINGS: Bones/joints: No thoracic fracture or subluxation. Thoracolumbar rods without visualized hardware complication. Moderate degenerative change midthoracic spine above level effusions. Fusion of vertebral bodies visualized lumbar spine. Soft tissues: Unremarkable. IMPRESSION: No thoracic fracture or subluxation.
[2021-10-24 20:54] LABS: Basophils # 0.1 K/mm3 (0-0.2); Basophils % 1.1 % (0.1-2.0); Eosinophils # 0.1 K/mm3 (0.0-0.4); Eosinophils % 1.3 % (0.1-12.0); Hematocrit 46.5 % (37.0-47.0); Hemoglobin 14.4 g/dL (12.2-16.2); Lymphocytes # 2.4 K/mm3 (0.7-4.5); Lymphocytes % 26.8 % (10-50); Mean Corpuscular Volume 106.6 fl (81-99); Mean Platelet Volume 8.3 fl (7.4-10.4); Monocytes # 0.5 K/mm3 (0.1-1.0); Monocytes % 6.1 % (1.7-9.3); Neutrophils # 5.7 K/mm3 (1.8-7.8); Neutrophils % 64.7 % (37.0-80.0); Platelet Count 416 K/mm3 (142-424); Red Blood Count 4.36 M/mm3 (4.20-5.40); Red Cell Distribution Width 15.3 % (11.5-17.5); White Blood Count 8.9 K/mm3 (4.8-10.8)
[2021-10-24 20:59] LABS: Lactic Acid 1.4 mmol/L (0.7-2.1)
[2021-10-24 21:00] LABS: Alanine Aminotransferase 16 U/L (12-78); Albumin Level 3.8 g/dl (3.5-5.0); Albumin/Globulin Ratio 1.3 (1.1-1.8); Alkaline Phosphatase 180 U/L (38-126); Anion Gap 11.1 mEq/L (5-15); Aspartate Amino Transferase 27 U/L (14-36); Bilirubin,Total 0.2 mg/dl (0.2-1.3); Blood Urea Nitrogen 15 mg/dl (7-17); Calcium 9.2 mg/dl (8.4-10.2); Carbon Dioxide 23 mmol/L (22.0-30.0); Chloride 107 mmol/L (98-107); Creatinine Clearance Estimated 62 mL/min (50-200); Estimated Glomerular Filt Rate 98 ml/min (>60); GFR (African American) 119 ML/MIN (>60); Globulin 2.9 g/dL (1.3-3.2); Glucose 332 mg/dl (74-100); Potassium 4.1 mmoL/L (3.5-5.1); Sodium 137 mmol/L (136-145); Total Protein,Serum 6.7 g/dl (6.3-8.2)
[2021-10-24 21:05] LABS: C-Reactive Protein 3.9 mg/L (0-4)
--- NOTE | 2021-10-24 21:07 | PC.NURSE ---
pt gone to ct
[2021-10-24 21:17] LABS: Erythrocyte Sedimentation Rate 21 mm/hr (0-30)
[2021-10-24 21:19] LABS: Procalcitonin 0.588 ng/mL (0.0-2.0)
[2021-10-24 23:33] LABS: Coronavirus 19, PCR Not Detected (NotDetected); Influenza A, PCR Not Detected (NotDetected); Influenza B, PCR Not Detected (NotDetected)
[2021-10-24 23:49] VITALS: BP 218/78; PULSE 71; O2SAT 98
[2021-10-25] VITALS (23 sets, daily range): BP systolic 128–264; BP diastolic 59–153; PULSE 63–98; RESP 16–22; TEMP 36.4–37.1; O2SAT 95–100; BMI 32.6
[2021-10-25 00:08] LABS: INR 0.95 (0.9-1.1); Prothrombin Time 10.3 seconds (10.1-12.5)
--- NOTE | 2021-10-25 03:41 | PC.NURSE ---
informed of continued high BP readings. Order for 0.1mg clonidine PO once given
--- NOTE | 2021-10-25 05:24 | PC.NURSE ---
PT ARRIVED TO [facility] VIA STRETCHER @ [phone]
[2021-10-25 06:08] LABS: PTT Heparin (inpatient only) 24.4 Seconds (23.6-34.0)
[2021-10-25 06:10] LABS: Basophils # 0.1 K/mm3 (0-0.2); Eosinophils # 0.1 K/mm3 (0.0-0.4); Eosinophils % 0.4 % (0.1-12.0); Hematocrit 45.8 % (37.0-47.0); Hemoglobin 13.9 g/dL (12.2-16.2); Lymphocytes # 1.8 K/mm3 (0.7-4.5); Lymphocytes % 14.8 % (10-50); Mean Corpuscular HGB Conc 30.4 g/dL (31.8-35.4); Mean Corpuscular Hemoglobin 32.6 pg (27.0-31.2); Mean Corpuscular Volume 107.6 fl (81-99); Mean Platelet Volume 8.4 fl (7.4-10.4); Monocytes # 0.6 K/mm3 (0.1-1.0); Monocytes % 5.3 % (1.7-9.3); Neutrophils # 9.2 K/mm3 (1.8-7.8); Neutrophils % 78.4 % (37.0-80.0); Platelet Count 352 K/mm3 (142-424); Red Blood Count 4.26 M/mm3 (4.20-5.40); Red Cell Distribution Width 15.4 % (11.5-17.5); White Blood Count 11.8 K/mm3 (4.8-10.8)
--- NOTE | 2021-10-25 06:32 | PC.NURSE ---
Notified Yolanda with nightwatch of Ptt result 74.0. No change needed at this time. Night watch to enter order for next Ptt.
--- NOTE | 2021-10-25 06:33 | PC.NURSE ---
When arriving to ER, pt BP 254/94. Notified MD. states he does not want to give her anything-NNO. When pt arrived to floor, this RN became aware that a previous Ptt was never drawn and pt had been actively receiving Heparin drip for 6 hours. New order for a STAT Ptt ordered per protocol and lab made aware. Pt brief very wet when arriving to floor. Pt cleaned up and new brief applied. Pt has stage 2 pressure area on coccyx. DSG applied. Photo consent obtained by pt , pt unable to write. Photo taken, see wound note. On assessment pt is AO x4 but does yell out constantly in pain and need of reposition and needs to be reminded of NPO status. Pt has right sided weakness due to previous CVA per , is completely dependent, q2 turn, and is a feeder. Pt eyes noted to be pinpoint but are reactive to light. House made aware. Pt lung sounds clear. BM sounds active, no tenderness noted with palpation. RLE cooler to touch compared to left. Pulse heard with doppler in both feet. is at bedside. Call light within reach.
[2021-10-25 07:05] LABS: Anion Gap 13.6 mEq/L (5-15); Blood Urea Nitrogen 11 mg/dl (7-17); Calcium 8.7 mg/dl (8.4-10.2); Carbon Dioxide 21 mmol/L (22.0-30.0); Chloride 104 mmol/L (98-107); Creatinine Clearance Estimated 65 mL/min (50-200); Estimated Glomerular Filt Rate 157 ml/min (>60); GFR (African American) 190 ML/MIN (>60); Glucose 276 mg/dl (74-100); Potassium 3.6 mmoL/L (3.5-5.1); Sodium 135 mmol/L (136-145)
--- NOTE | 2021-10-25 07:30 | PC.WOUNDNOTE ---
pts bottom. dressing applied.
--- NOTE | 2021-10-25 08:11 | PC.NURSE ---
spoke with pharmacist regarding heparin drip. no changes @ this time
--- NOTE | 2021-10-25 08:46 | P.CONPHA_ITS ---
[facility] Pharmacy VTE Monitoring Patient Demographics Admission date: 10/25/21 Report Date: 10/25/21 Time: 08:46 Patient Allergies cefuroxime [From CEFTIN] Allergy (Mild, Verified 10/07/21 11:04) Height: 1.57 m Weight: 80.467 kg Current Active Problems (Updated 10/25/21 @ 01:35 by Tawanda Cortez MD) PVD (peripheral vascular disease) (Acute) Ischemia of foot (Acute) VTE Risk Labs: VTE Related Lab Results Hgb 13.9 g/dL (12.2-16.2) 10/25/21 05:55 Hct 45.8 % (37.0-47.0) 10/25/21 05:55 Plt Count 352 K/mm3 (142-424) 10/25/21 05:55 PT 10.3 seconds (10.1-12.5) 10/24/21 20:42 INR 0.95 (0.9-1.1) 10/24/21 20:42 APTT 74.0 Seconds (23.6-34.0) H* 10/25/21 05:55 BUN 11 mg/dl (7-17) D 10/25/21 05:55 Creatinine 0.40 mg/dl (0.52-1.04) L D 10/25/21 05:55 Estimated Creat Clear 65 mL/min (50-200) 10/25/21 05:55 Clinical Trial Participant: Yes Prophylaxis VTE Prophylaxis Ordered?: Yes Types of VTE Prophylaxis: Pharmacological Location of Applied Device: Not Applicable Pharmacologic Type: Heparin
--- NOTE | 2021-10-25 08:55 | PC.NURSE ---
pagechristine HITCHCOCK regarding pts blood pressure
--- NOTE | 2021-10-25 08:59 | PC.NURSE ---
spoke with Dr. Louis regarding pts hypertension, and r lower ext. Will restart valsartan and coreg from home med list as well as a 1x dose of clonidine
--- NOTE | 2021-10-25 09:20 | HMH.PHAINT1 ---
Pharmacy Intervention Comments: home medication list reconciled using list from outpatient pharmacies and pt interview.
[2021-10-25 11:07] LABS: PTT Heparin (inpatient only) 132.7 Seconds (23.6-34.0)
--- NOTE | 2021-10-25 11:12 | PC.NURSE ---
reportsed ptt. reducing rate to 23 ml per hourand will recheck in one hour
--- NOTE | 2021-10-25 11:14 | HMH.PHAHEP ---
[facility] Pharmacy Heparin Dosing Demographic Data Admission date:: 10/24/21 Date: 10/25/21 Time: 11:14 Allergies Allergy/AdvReac Type Severity Reaction Status Date / Time cefuroxime [From CEFTIN] Allergy Mild Verified 10/07/21 11:04 Height: 1.52 m Weight: 80 kg Indication Medication therapy:: Heparin Current Indications:: ISCHEMIA OF FOOT, ADMITTED PER HANK AND STARTED ON HEPARIN DRIP (PER ER NOTE) Current Active Problems (Updated 10/25/21 @ 01:35 by Tawanda Cortez MD) Declining functional status (Acute) PVD (peripheral vascular disease) (Acute) Ischemia of foot (Acute) HTN (hypertension) (Acute) Chest pain (Acute) Diabetes mellitus with diabetic neuropathy (Chronic) CVA (cerebrovascular accident) (Chronic) 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) Chronic, continuous use of opioids (Chronic) CVA?: No Bleeding problem?: No Kidney disease?: No LA?: No Desired PTT range:: 50-70 seconds Comments:: 50-75 Labs Anticoagulation Lab Results:: 10/24/21 10/25/21 20:42 05:55 Hgb 14.4 13.9 Hct 46.5 45.8 Plt Count 416 352 Monitoring Dose Monitor 1: Date: 10/24/21 Time: 20:45 PTT Result:: 24.4 (BASELINE) Infusion Rate:: Start heparin drip at 18units/kg/hr (1400 units/hr) or (28mLs/hr) @0030 heparin 5000 unit bolus given Dose Monitor 2: Date: 10/25/21 Time: 06:00 PTT Result:: 74.4 Infusion Rate:: called to Pharmacy @ 0800, continue 28mLs/hr (1400 units/hr), another PTT due at 1000 Dose Monitor 3: Date: 10/25/21 Time: 10:35 PTT Result:: 132.7 Infusion Rate:: called to Pharmacy @ 1110, decrease rate by 3 units/kg/hr. New rate 1150 units/hr (23mLs/hr). Next PTT due @ 1230 Dose Monitor 4: Date: 10/25/21 Time: 12:30 PTT Result:: 108 Infusion Rate:: called to pharmacy @1330. Decrease rate by 3 units/kg/hr New rate 900 units/hr (18mLs/hr) Next PTT due @1430 Dose Monitor 5: Date: 10/25/21 Time: 14:30 PTT Result:: 79.2 Infusion Rate:: called to pharmacy @ 1545. Decrease rate by 1unit/kg/hr. New rate 850units/hr (17mls/hr) Next PTT due at 1800 Dose Monitor 6: Date: 10/25/21 Time: 18:00 PTT Result:: 50.4 Infusion Rate:: Called to pharmacy @ 1915. Rate increased by 1 unit/kg/hr. New rate 900units/hr (18 mls/hr) Next PTT dur at 2100 Dose Monitor 7: Date: 10/25/21 Time: 21:00 PTT Result:: 45.3 Infusion Rate:: called to pharmacy @2145. Rate by 3 units/kg/hr. New rate 1050 units/hr (21 mLs/hr) Next PTT due at 0130 Dose Monitor 8: Date: 10/26/21 Time: 01:45 PTT Result:: 79.7 Infusion Rate:: called to pharmacy @ 0215. Decrease rate by 1unit/kg/hr. New rate 1000 units/hr (20mLs/hr) Next ptt due at 0600 Dose Monitor 9: Date: 10/26/21 Time: 06:00 PTT Result:: 58.4 Infusion Rate:: called to pharmacy @0730 continue at current rate 1000 units/hr Next PTT due at 1030 Dose Monitor 10: Date: 10/26/21 Time: 10:30 PTT Result:: 61.9 Infusion Rate:: called to pharmacy @ 1200. continue current rate 1000 units/hr. Next PTT due at 1430 Dose Monitor 11: Date: 10/26/21 Time: 14:30 PTT Result:: 52.4 Infusion Rate:: called to pharmacy @1600. Rate continued at 1000 units/hr (20mLs/hr) Next PTT due at 0700 on 10/27/21 Dose Monitor 12: Date: 10/27/21 Time: 07:10 PTT Result:: 46.1 Infusion Rate:: increase rate to 1100 units/hr (22mLs/hr) Next PTT due at 1100 Dose Monitor 13: Date: 10/27/21 Time: 13:34 PTT Result:: 53.4 Infusion Rate:: continue at 1100units/hr (22mLs/hr) Comment:: heparin drip discontinued by Baldomero RAMSAY Core Measures Is INR > or = 2 at discharge?: No Most
--- NOTE | 2021-10-25 12:01 | EXP.HP ---
History of Present Illness *Admission Date: 10/24/21 *Reason for visit:: ischemic limb *History of present illness: 70 yo female admitted for ischemic rle took her to er due to pain underlying diabetes and history of significant cva in 2019; bed confined and with residual right sided weakness and speech deficit started on heparin gtt with cardiology consult extensive imaging done, revealing chronic brain atrophy and degenerative changes prosthetic right knee in good position history of lumbar fusion [facility] Medical History Abnormal electrocardiography Chest pain Dyspnea Gastroesophageal reflux disease HTN (hypertension) Social History Smoking Status: Never smoker alcohol intake: former substance use type: denies use current occupational status: retired Travel in the last 8 weeks: [place] the [place] household members: spouse housing: other caffeine: No Review of Systems Review of Systems Review of systems:: unable to obtain Meds Home Medications and Allergies Home Medications Medication Instructions Recorded Confirmed Type alendronate 70 mg tablet 70 mg PO WEEKLY Osteoporosis 84 01/15/20 10/25/21 Rx days #12 tabs aspirin 81 mg tablet,delayed 81 mg PO DAILY HEART HEALTH 30 01/15/20 10/25/21 Rx release days #30 tabs baclofen 10 mg tablet 10 mg PO TID muscle relaxer 30 01/15/20 10/25/21 Rx days #90 tabs carvedilol 25 mg tablet 12.5 mg PO BID Hypertension 30 01/15/20 10/25/21 Rx days #60 tabs cyanocobalamin (vitamin B-12) 1,000 mcg IM WEEKLY Supplement 30 01/15/20 10/25/21 Rx 1,000 mcg/mL injection solution days #1 vial docusate sodium 250 mg capsule 250 mg PO BID CONSTIPATION 30 days 01/15/20 10/25/21 Rx #60 caps melatonin-pyridoxine HCl (vitamin 1 each PO HS SLEEP 30 days #30 tabs 01/15/20 10/25/21 Rx B6) 5 mg-10 mg tablet metformin 1,000 mg tablet 1,000 mg PO BIDWM Diabetes 30 days 01/15/20 10/25/21 Rx #60 tabs paroxetine HCl 20 mg tablet 60 mg PO HS MOOD 30 days #30 tabs 01/15/20 10/25/21 Rx simvastatin 40 mg tablet 40 mg PO HS Cholesterol 30 days 01/15/20 10/25/21 Rx #30 tabs topiramate 50 mg tablet 50 mg PO HS headaches 30 days #30 01/15/20 10/25/21 Rx tabs ondansetron HCl 4 mg tablet 4 mg PO Q8H PRN nausea and 08/26/21 10/25/21 Rx vomiting #30 tabs alprazolam 0.5 mg tablet 0.5 mg PO DAILY Anxiety 10/25/21 10/25/21 History gabapentin 300 mg capsule 300 mg PO TID nerve pain 10/25/21 10/25/21 History hydroxyzine HCl 10 mg tablet 10 mg PO BID Anxiety 10/25/21 10/25/21 History insulin aspar prt-insulin aspart 12 unit SQ DAILY Diabetes 10/25/21 10/25/21 History 100 unit/mL (70-30) subcutaneous soln (Novolog Mix 70-30 U-100 Insuln) insulin glargine 100 32 unit SQ DAILY Diabetes 10/25/21 10/25/21 History unit-lixisenatide 33 mcg/mL subcutaneous pen (Soliqua 100/33) lactulose 20 gram/30 mL oral 20 g PO .every other day 10/25/21 10/25/21 History solution constipation linaclotide 145 mcg capsule 145 mcg PO DAILY constipaiton 10/25/21 10/25/21 History (Linzess) metoclopramide HCl 10 mg tablet 10 mg PO ACHS stomach 10/25/21 10/25/21 History omeprazole 20 mg capsule,delayed 20 mg PO DAILY acid reflux 10/25/21 10/25/21 History release oxycodone-acetaminophen 10 mg-325 1 each PO QIDP PRN Pain 10/25/21 10/25/21 History mg tablet polyethylene glycol 3350 17 17 g PO DAILY bowels 10/25/21 10/25/21 History gram/dose oral powder (Miralax) prednisone 5 mg tablet 5 mg PO DAILY steroid 10/25/21 10/25/21 History valsartan 80 mg tablet 80 mg PO DAILY High blood pressure 10/25/21 10/25/21 History New Prescriptions to Start Prescriptions: Allergies Allergy/AdvReac Type Severity Reaction Status Date / Time cefuroxime [From CEFTIN] Allergy Mild Verified 10/07/21 11:04 Exam Data for Last 24 hours Vital signs and Labs for Last 24 Hours: Temp Pulse Resp BP Pulse Ox
[2021-10-25 15:39] LABS: PTT Heparin (inpatient only) 79.2 Seconds (23.6-34.0)
[2021-10-25 16:29] LABS: POC Glucose,Bedside 279 (70-110)
[2021-10-25 18:44] LABS: PTT Heparin (inpatient only) 50.4 Seconds (23.6-34.0)
--- NOTE | 2021-10-25 19:14 | PC.NURSE ---
spoke to night watch. increase heparin to 900/ 18ml
[2021-10-25 21:30] LABS: PTT Heparin (inpatient only) 45.3 Seconds (23.6-34.0)
--- NOTE | 2021-10-25 22:04 | PC.NURSE ---
Talked to [facility] pharmacy about PTT results and heparin drip dosage. New orders received. Heparin drip adjusted per order. Bolus given per order. Pharmacist to put in order for next PTT.
[2021-10-26] VITALS: BP 195/74; PULSE 72; RESP 22; TEMP 36.9; O2SAT 99
[2021-10-26 02:06] LABS: PTT Heparin (inpatient only) 79.7 Seconds (23.6-34.0)
--- NOTE | 2021-10-26 02:08 | PC.NURSE ---
[facility] pharmacy contacted regarding new PTT. New orders received. Heparin to be decreased to 20mls/hr.
[2021-10-26 04:00] VITALS: BP 171/59; PULSE 82; RESP 22; TEMP 36.5; O2SAT 98
--- NOTE | 2021-10-26 04:06 | PC.NURSE ---
Pt answers orientation questions appropriately, but is constantly yelling out and not easily redirected. Pt has been medicated per APR for pain multiple times this shift and for anxiety as well. Pt still restless and has barely slept. Repositioning pt every 2 hrs. at bedside. Pulses in feet are not palpable, but heard with doppler. Right lower extremity is cooler, compared to left lower extremity. Heparin drip infusing per order and consulting with [facility] pharmacy as needed with ptt results for dose adjustments. No other needs at this time. Call light in reach.
[2021-10-26 04:39] VITALS: BMI 34.7
--- NOTE | 2021-10-26 06:27 | PC.NURSE ---
iv pump cleared - multiple shifts
[2021-10-26 06:40] LABS: PTT Heparin (inpatient only) 58.4 Seconds (23.6-34.0)
--- NOTE | 2021-10-26 07:01 | PC.NURSE ---
Contacted [facility] pharmacy regarding pts PTT. Per pharmD, no changes in rate. PharmD will put in orders for next PTT.
[2021-10-26 07:48] VITALS: BP 183/77; PULSE 69; RESP 18; TEMP 36.6; O2SAT 97
--- NOTE | 2021-10-26 07:59 | PC.NURSE ---
RN aware of elevated bp.
[2021-10-26 10:22] VITALS: BMI 34.7
[2021-10-26 11:12] LABS: PTT Heparin (inpatient only) 61.9 Seconds (23.6-34.0)
[2021-10-26 12:00] VITALS: BP 167/70; PULSE 77; RESP 16; TEMP 36.3; O2SAT 98
--- NOTE | 2021-10-26 14:32 | EXP.PN ---
Subjective *Date: 10/26/21 *Time: 14:32 Interval history: anxious/yelling out last night relays less discomfort in rle still cool to touch but acyanotic w/o ischemic demarcation Exam Data for Last 24 hours Vital signs and Labs for Last 24 Hours: Temp Pulse Resp BP Pulse Ox 97.3 F L 77 16 167/70 H 98 10/26/21 12:00 10/26/21 12:00 10/26/21 12:00 10/26/21 12:00 10/26/21 12:00 Laboratory Results - last 24 hr 10/25/21 14:52: APTT 79.2 H* 10/25/21 16:22: POC Glucose 279 H 10/25/21 18:00: APTT 50.4 H* 10/25/21 21:10: APTT 45.3 H 10/26/21 01:45: APTT 79.7 H* 10/26/21 06:06: APTT 58.4 H* 10/26/21 10:35: APTT 61.9 H* I & O for Last 24 hours: Intake & Output 10/23/21 10/24/21 10/25/21 10/26/21 23:59 23:59 23:59 23:59 Intake Total 240 / 240 670 / 670 Output Total 800 / 800 Balance 240 / 240 -130 / -130 Weight 170 lb 177 lb 6.4 oz 177 lb 1.557 oz Constitutional Constitutional: chronically ill appearing *Routine HEENT Exam Head: Present atraumatic Eye: Absent scleral injection ENT: Present mucous membranes moist *Routine Neck Exam Neck: Present supple *Routine Respiratory Exam Respiratory: Present CTA bilaterally *Routine Cardiovascular Exam Cardiovascular: Present RRR *Routine Abdominal Exam Abdominal: Present soft; Absent tenderness *Routine Extremities Exam Extremities: Present extremity cold to touch; Absent cyanosis *Routine Skin Exam Skin: Absent jaundice *Routine Neurological Exam Neurological: Present alert Assessment and Plan *Assessment and plan (1) Ischemia of foot: Status: Acute Category: Medical Code(s): I99.8 - Other disorder of circulatory system Plan continue heparin drip await cardiology recommendations
[2021-10-26 14:33] LABS: PTT Heparin (inpatient only) 52.4 Seconds (23.6-34.0)
[2021-10-26 16:00] VITALS: BP 189/78; PULSE 79; RESP 18; TEMP 36.7; O2SAT 95
--- NOTE | 2021-10-26 16:06 | PC.NURSE ---
RN aware of elevated bp.
--- NOTE | 2021-10-26 16:48 | PC.NURSE ---
738 ML CLEARED FROM IV PUMP WAS FROM MULTIPLE SHIFTS
--- NOTE | 2021-10-26 17:43 | PC.NURSE ---
PT IS AOX4 BUT DOES HAVE EPISODES WHERE SHE RAISES HER VOICE AND YELLS. SHE HAS BEEN MEDICATED FOR PAIN X1 AND ANXIETY X1 THIS SHIFT. BP HAS BEEN ELEVATED THIS SHIFT. DR NELSON WAS CONTACTED AND ORDERED CLONIDINE 0.2 MG FOR HER [id number]. PURE WICK IN [place]CE R/T INCONTINENCE. PEDAL PULSES PRESENT IN RLE WITH USE OF DOPPLER.
[2021-10-26 19:05] LABS: POC Glucose,Bedside 244 (70-110)
[2021-10-26 19:05] LABS: POC Glucose,Bedside 277 (70-110)
[2021-10-26 19:05] LABS: POC Glucose,Bedside 345 (70-110)
[2021-10-26 19:05] LABS: POC Glucose,Bedside 190 (70-110)
--- NOTE | 2021-10-26 19:26 | PC.NURSE ---
LATE ENTRY SPOKE WITH TE AT [facility]. CONTINUE CURRENT RATE 20 ML/HR FOR HEPARIN GTT HE WILL PUT IN NEXT PTT
[2021-10-26 20:00] VITALS: BP 155/67; PULSE 70; RESP 17; TEMP 36.9; O2SAT 96
--- NOTE | 2021-10-26 20:19 | HMH.PHAINT ---
called david with night watch to confirm next ptt draw at 0600, repeated and verified.
[2021-10-26 20:38] LABS: POC Glucose,Bedside 267 (70-110)
[2021-10-27] VITALS (49 sets, daily range): BP systolic 97–197; BP diastolic 49–105; PULSE 54–102; RESP 16–20; TEMP 36.6–36.9; O2SAT 94–100; BMI 34.9
[2021-10-27 06:47] LABS: POC Glucose,Bedside 251 (70-110)
[2021-10-27 07:26] LABS: Basophils # 0.1 K/mm3 (0-0.2); Basophils % 0.7 % (0.1-2.0); Eosinophils # 0.1 K/mm3 (0.0-0.4); Eosinophils % 1.2 % (0.1-12.0); Hematocrit 45.5 % (37.0-47.0); Hemoglobin 13.8 g/dL (12.2-16.2); Lymphocytes # 3.2 K/mm3 (0.7-4.5); Lymphocytes % 32.5 % (10-50); Mean Corpuscular HGB Conc 30.3 g/dL (31.8-35.4); Mean Corpuscular Volume 105.7 fl (81-99); Mean Platelet Volume 7.9 fl (7.4-10.4); Monocytes # 0.6 K/mm3 (0.1-1.0); Monocytes % 6.1 % (1.7-9.3); Neutrophils # 5.9 K/mm3 (1.8-7.8); Neutrophils % 59.5 % (37.0-80.0); Platelet Count 316 K/mm3 (142-424); Red Blood Count 4.31 M/mm3 (4.20-5.40); Red Cell Distribution Width 15.4 % (11.5-17.5); White Blood Count 9.9 K/mm3 (4.8-10.8)
[2021-10-27 07:32] LABS: Alanine Aminotransferase 16 U/L (12-78); Albumin Level 3.5 g/dl (3.5-5.0); Albumin/Globulin Ratio 1.2 (1.1-1.8); Alkaline Phosphatase 108 U/L (38-126); Anion Gap 9.2 mEq/L (5-15); Aspartate Amino Transferase 23 U/L (14-36); Blood Urea Nitrogen 10 mg/dl (7-17); Calcium 9.1 mg/dl (8.4-10.2); Carbon Dioxide 25 mmol/L (22.0-30.0); Chloride 105 mmol/L (98-107); Creatinine Clearance Estimated 65 mL/min (50-200); Estimated Glomerular Filt Rate 121 ml/min (>60); GFR (African American) 147 ML/MIN (>60); Globulin 2.9 g/dL (1.3-3.2); Glucose 254 mg/dl (74-100); PTT Heparin (inpatient only) 46.1 Seconds (23.6-34.0); Potassium 3.2 mmoL/L (3.5-5.1); Sodium 136 mmol/L (136-145); Total Protein,Serum 6.4 g/dl (6.3-8.2)
[2021-10-27 07:38] LABS: Bilirubin,Total < 0.1 mg/dl (0.2-1.3)
--- NOTE | 2021-10-27 08:00 | EXP.CARD.CON ---
History of Present Illness History of Present Illness Consult date: 10/27/21 Requesting physician: Tawanda Cortez Chief complaint: RLE pain History of present illness: 70 yo WF with one week history of RLE pain. Admitted with suspected arterial insufficiency and started on heparin drip. History of DM, prior CVA (2019) and Left CEA, prior bilateral knee replacements and hip surgery, HTN, HLD and continued tobacco use (1.5 ppd for 40 yrs). Cardiology asked to see for evaluation. [facility] Medical History Abnormal electrocardiography Chest pain Dyspnea Gastroesophageal reflux disease HTN (hypertension) Social History Smoking Status: Never smoker alcohol intake: former substance use type: denies use current occupational status: retired Travel in the last 8 weeks: Inside the [place] household members: spouse housing: other caffeine: No Review of Systems Review of Systems Review of systems:: pertinent systems reviewed and negative unless documented below *Cardiovascular Cardiovascular: Denies chest pain and Denies dyspnea Comments: pain in RLE below knee *Respiratory Respiratory: Denies dyspnea *Gastrointestinal Gastrointestinal: Denies abdominal pain Exam Data for Last 24 hours Vital signs and Labs for Last 24 Hours: Temp Pulse Resp BP Pulse Ox 97.8 F 80 18 158/89 H 95 10/27/21 04:00 10/27/21 04:00 10/27/21 04:00 10/27/21 04:00 10/27/21 04:00 Laboratory Results - last 24 hr 10/25/21 21:47: POC Glucose 190 H 10/26/21 06:15: POC Glucose 244 H 10/26/21 10:35: APTT 61.9 H* 10/26/21 11:01: POC Glucose 277 H 10/26/21 14:18: APTT 52.4 H* 10/26/21 16:16: POC Glucose 345 H* 10/26/21 20:31: POC Glucose 267 H 10/27/21 06:37: POC Glucose 251 H 10/27/21 07:10: WBC 9.9, RBC 4.31, Hgb 13.8, Hct 45.5, MCV 105.7 H, MCH 32.0 H, MCHC 30.3 L, RDW 15.4, Plt Count 316, MPV 7.9, Neut % (Auto) 59.5, Lymph % (Auto) 32.5, Baxter % (Auto) 6.1, Eos % (Auto) 1.2, Baso % (Auto) 0.7, Neut # (Auto) 5.9, Lymph # (Auto) 3.2, Baxter # (Auto) 0.6, Eos # (Auto) 0.1, Baso # (Auto) 0.1 10/27/21 07:10: Sodium 136, Potassium 3.2 L, Chloride 105, Carbon Dioxide 25, Anion Gap 9.2, BUN 10, Creatinine 0.50 L D, Estimated Creat Clear 65, Estimated GFR 121, Est GFR ( Amer) 147 D, Glucose 254 H, Calcium 9.1, Total Bilirubin < 0.1 L, AST 23, ALT 16, Alkaline Phosphatase 108, Total Protein 6.4, Albumin 3.5, Globulin 2.9, Albumin/Globulin Ratio 1.2 10/27/21 07:10: APTT 46.1 H I & O for Last 24 hours: Intake & Output 10/24/21 10/25/21 10/26/21 10/27/21 11:59 11:59 11:59 11:59 Intake Total 910 / 910 1482 / 1482 Output Total 800 / 800 2500 / 2500 Balance 110 / 110 -1018 / -1018 Weight 177 lb 6.4 oz 177 lb 1.557 oz 178 lb 1 oz Microbiology Reports for the Last 24 Hours: Microbiology 10/24/21 20:42 Blood Blood Culture - Preliminary NO GROWTH AFTER 48 HOURS 10/24/21 20:42 Blood Blood Culture - Preliminary NO GROWTH AFTER 48 HOURS Constitutional Constitutional: no acute distress *Routine Neck Exam Neck: Present carotid bruit Comments: LCEA scar *Routine Respiratory Exam Respiratory: Present CTA bilaterally *Routine Cardiovascular Exam Cardiovascular: Present RRR, Normal S1 and Normal S2; Absent murmur, gallop or rubs *Routine Extremities Exam Extremities: Absent cyanosis or edema Comments: Poor pulses of bilateral LE's with faint pulses of LLE and unable to feel pulses of RLE. No ulcers or gangrene. *Routine Neurological Exam Neurological: Present alert, oriented X3 and CN II-XII intact Meds Home Medications and Allergies Home Medications Medication Instructions Recorded Confirmed Type alendronate 70 mg tablet 70 mg PO WEEKLY Osteoporosis 84 01/15/20 10/25/21 Rx days #12 tabs aspirin 81 mg tablet,delayed 81 mg PO DAILY HEART HEALTH 01/15/20 10/25/21 Rx release days #
--- NOTE | 2021-10-27 08:35 | P.PN_ITS ---
Subjective *Date: 10/27/21 *Time: 20:10 Interval history: doing better this am with less pain but on morphine - card note reviewed - to have cath procedure today Medical Exam Vital signs and Labs for Last 24 Hours: Temp Pulse Resp BP Pulse Ox 97.9 F 66 17 141/71 H 98 10/27/21 08:00 10/27/21 08:00 10/27/21 08:00 10/27/21 08:00 10/27/21 08:00 Laboratory Results - last 24 hr 10/25/21 21:47: POC Glucose 190 H 10/26/21 06:15: POC Glucose 244 H 10/26/21 10:35: APTT 61.9 H* 10/26/21 11:01: POC Glucose 277 H 10/26/21 14:18: APTT 52.4 H* 10/26/21 16:16: POC Glucose 345 H* 10/26/21 20:31: POC Glucose 267 H 10/27/21 06:37: POC Glucose 251 H 10/27/21 07:10: WBC 9.9, RBC 4.31, Hgb 13.8, Hct 45.5, MCV 105.7 H, MCH 32.0 H, MCHC 30.3 L, RDW 15.4, Plt Count 316, MPV 7.9, Neut % (Auto) 59.5, Lymph % (Auto) 32.5, Brooke % (Auto) 6.1, Eos % (Auto) 1.2, Baso % (Auto) 0.7, Neut # (Auto) 5.9, Lymph # (Auto) 3.2, Brooke # (Auto) 0.6, Eos # (Auto) 0.1, Baso # (Auto) 0.1 10/27/21 07:10: Sodium 136, Potassium 3.2 L, Chloride 105, Carbon Dioxide 25, Anion Gap 9.2, BUN 10, Creatinine 0.50 L D, Estimated Creat Clear 65, Estimated GFR 121, Est GFR ( Amer) 147 D, Glucose 254 H, Calcium 9.1, Total Bilirubin < 0.1 L, AST 23, ALT 16, Alkaline Phosphatase 108, Total Protein 6.4, Albumin 3.5, Globulin 2.9, Albumin/Globulin Ratio 1.2 10/27/21 07:10: APTT 46.1 H I & O for Labs for Last 24 Hours: Intake & Output 10/24/21 10/25/21 10/26/21 10/27/21 11:59 11:59 11:59 11:59 Intake Total 910 / 910 1722 / 1722 Output Total 800 / 800 2500 / 2500 Balance 110 / 110 -778 / -778 Weight 177 lb 6.4 oz 177 lb 1.557 oz 178 lb 1 oz Microbiology Reports for the Last 24 Hours: Microbiology 10/24/21 20:42 Blood Blood Culture - Preliminary NO GROWTH AFTER 48 HOURS 10/24/21 20:42 Blood Blood Culture - Preliminary NO GROWTH AFTER 48 HOURS Head: atraumatic Eyes: as per HPI ENT: mucous membranes moist Neck: trachea midline Respiratory: decreased breath sounds Cardiac: Reg Rate and Rhythm and Systolic Murmur GI: soft Rectal (female): deferred (female): deferred Extremities: other (dec pulse bilat lower ext ) Skin: cyanosis Neuro: Cranial Nerve 2-12 Intact Assessment and Plan *Assessment and plan (1) Ischemia of foot: Status: Acute Category: Medical Code(s): I99.8 - Other disorder of circulatory system Assessment and plan all Dx Assessment and Plan All Dx:: 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
[2021-10-27 11:28] LABS: PTT Heparin (inpatient only) 53.4 Seconds (23.6-34.0)
--- NOTE | 2021-10-27 11:44 | PC.NURSE ---
Called pharm with PTT value
--- NOTE | 2021-10-27 13:00 | IR_ITS ---
APPROVED REPORT Patient Location: Inpatient Corporate Development Intern: ROMA Garza RT (R) PROCEDURES Left femoral arterial access Left retrograde femoral angiogram Bare-metal stent deployment to the left common iliac artery Catheter placement in the right external iliac artery Right external iliac artery antegrade angiogram with unilateral runoff Catheter placement in the left common iliac artery Left common iliac artery retrograde angiogram with bilateral iliofemoral angiography INDICATION Left common iliac artery stenosis/atherosclerosis, [place] claudication class IV involving the right leg with acute on chronic limb threatening ischemia Informed consent was obtained prior to the procedure. COMPLICATIONS NONE Estimated Blood Loss: LESS THAN 10 ML TECHNIQUE 1% lidocaine used to anesthetize the left femoral groin. The left femoral artery was accessed via the Seldinger technique. A wire would not pass to the left common iliac artery therefore retrograde angiography was performed. This demonstrated a high-grade stenosis involving the left common iliac artery therefore the 5 Peruvian sheath was exchanged for a 6 Peruvian sheath and a long advantage wire was used to negotiate through the stenosis in the common iliac artery. A 23 cm Brite tip sheath was used to perform retrograde angiography and therapeutic heparin was administered giving a therapeutic ACT. An 8 mm x 17 mm bare-metal stent was deployed at 20 lucy reducing the stenosis. The stent was undersized therefore a 9 mm x 20 mm balloon was placed inside the stent and deployed at 15 lucy to post dilate. Excellent angiographic results were obtained with wide patency of the left common iliac artery. Following this a rim catheter was advanced under fluoroscopic guidance into the right common and external iliac artery. Antegrade angiography was performed with unilateral runoff below the left knee. The table would not perform a standard iliofemoral runoff therefore a stepped approach through the common femoral SFA and popliteal arteries were performed. At the end of the diagnostic procedure the catheter was pulled back into the sheath which was in the left common iliac artery and retrograde angiography was performed to perform bilateral iliofemoral angiography. At the end of the procedure the apparatus was removed the sheath was left in place patient was transferred the postop putting in stable condition for postoperative care and sheath removal ANGIOGRAPHIC RESULTS Distal abdominal aorta is calcified atheromatous with 20% eccentric stenoses. The right common iliac artery has a proximal 30 to 40% eccentric stenosis while the left has a greater than 70% eccentric stenosis. Both internal iliac arteries are widely patent as are both external iliac arteries. Both common femoral arteries are also widely patent Right superficial femoral artery is ostially occluded and reconstitutes at the popliteal level via collaterals throughout the large profunda femoris. The profunda femoris artery is subtotally occluded in the proximal segment and has bridging collaterals which then reconstitute the vessel distally. There are additional tandem 90% stenoses in the large collaterals supplying the popliteal artery. The popliteal artery does reconstitute at the perigeniculate level and then slowly fills into the PT trunk. No further runoff was evaluated due to copious contrast usage and clinical relevance at this point IMPRESSION Severe left common iliac artery stenosis Successful stent to the left common iliac artery severe disease reduced to 0% with 1 bare-metal balloon mounted stent Chronically occluded right superficial femoral artery and proximal right
[2021-10-27 13:02] LABS: POC Glucose,Bedside 323 (70-110)
[2021-10-27 14:35] LABS: CATHL Activated Clotting Time 313 SEC (74-125)
[2021-10-27 15:10] LABS: Microscopic, Urine URINE MICROSCOPIC (MICROSCOPIC)
--- NOTE | 2021-10-27 15:21 | SUR.PHASEII ---
pt medicated per MAR for blood pressure and pain.
[2021-10-27 15:26] LABS: Appearance,Urine CLEAR (Clear); Bilirubin,Urine Negative (Negative); Blood, Urine Negative (Negative); Color,Urine YELLOW (Yellow); Glucose,Urine (UA) Negative (Negative); Ketones,Urine Negative (Negative); Leukocyte Esterase,Urine TRACE (Negative); Nitrate,Urine Negative (Negative); Protein,Urine Negative (Negative); Specific Gravity, Urine <= 1.005 (1.005-1.030); Urobilinogen,Urine 0.2 EU/dl (0.2)
[2021-10-27 15:41] LABS: Bacteria,Urine Trace /lpf; WBC,Urine Occasional #/hpf (0-3)
--- NOTE | 2021-10-27 16:25 | PC.NURSE ---
Got report from field laboratory operator
--- NOTE | 2021-10-27 20:22 | PC.NURSE ---
Pt is A/ox4 with questions, but is pleasantly confused. She has done nothing, but continuously yell out random things throughout the day. Her has been at the bedside the entire time. She has been on and off sleeping. She went down to greenhouse laborer and had 1 stent placed. She is to lay flat until 2229. She in not very happy about laying down.
[2021-10-27 20:44] LABS: CATHL Activated Clotting Time 252 SEC (74-125)
[2021-10-27 20:45] LABS: CATHL Activated Clotting Time 283 SEC (74-125)
[2021-10-27 20:46] LABS: CATHL Activated Clotting Time 320 SEC (74-125)
[2021-10-27 22:21] LABS: POC Glucose,Bedside 218 (70-110)
[2021-10-28 04:00] VITALS: BP 157/62; PULSE 74; RESP 18; TEMP 36.9; O2SAT 95; BMI 34.4
--- NOTE | 2021-10-28 05:28 | PC.NURSE ---
PT HAS BEEN VERY RESTLESS THIS SHIFT. RLE IS WARM TO TOUCH AND PEDAL PULSE IS PALPABLE. PT IS BEING TURNED Q2HRS AND REQUESTED. PAIN AND ANXIETY GIVEN ORDERED. LUNG SOUNDS REMAIN CLEAR. NO OXYGEN SUPPORT REQUIRED THIS SHIFT. NO C/O N/V/D. COWAN REMAINS IN PLACE DRAINING ADEQUATE AMOUNTS OF CLEAR YELLOW URINE. VSS.
[2021-10-28 06:26] LABS: POC Glucose,Bedside 225 (70-110)
[2021-10-28 07:57] VITALS: BP 156/86; PULSE 67; RESP 16; TEMP 36.4; O2SAT 98
--- NOTE | 2021-10-28 09:57 | EXP.CARD.PN ---
Subjective Subjective Date: 10/28/21 Time: 09:57 Interval history: n iliac artery severe disease reduced to 0% with 1 bare-metal balloon mounted stent Still complains of right leg cramping and pain. Results of procedure discussed with . Patient is stable for discharge. Lower extremity angiogram, 10/27/2021: IMPRESSION Severe left common iliac artery stenosis Successful stent to the left commo Chronically occluded right superficial femoral artery and proximal right popliteal artery which are collateralized via severely and diffusely diseased profunda femoris. PLAN 1. The right leg is critically diseased and opening the right superficial femoral artery would have no clinical benefit.? Furthermore the profunda femoris artery is severely diffusely and critically diseased and this vessel is not amenable to either surgical or percutaneous revascularization 2. Supportive care and medical management 3. Xarelto 2.5 twice daily plus aspirin 81 mg daily 4. LDL less than 55 to be achieved with high intensity statin 5. Physical therapy 6. Tight control of diabetes Electronically signed by : Kb Temple MD? 10/27/2021 14:31:56 Exam Data for Last 24 hours Vital signs and Labs for Last 24 Hours: Temp Pulse Resp BP Pulse Ox 97.6 F 67 16 156/86 H 98 10/28/21 07:57 10/28/21 07:57 10/28/21 07:57 10/28/21 07:57 10/28/21 07:57 Laboratory Results - last 24 hr 10/27/21 11:05: APTT 53.4 H* 10/27/21 12:55: POC Glucose 323 H* 10/27/21 14:04: Activated Clotting Time 313 H* 10/27/21 14:31: Activated Clotting Time 320 H* 10/27/21 15:00: Urine Color Yellow, Urine Appearance Clear, Urine pH 6.0, Ur Specific Lyndon <= 1.005, Urine Protein Negative, Urine Glucose (UA) Negative, Urine Ketones Negative, Urine Blood Negative, Urine Nitrate Negative, Urine Bilirubin Negative, Urine Urobilinogen 0.2, Ur Leukocyte Esterase Trace, Urine RBC None, Urine WBC Occasional, Ur Squamous Epith Cells 5-10, Urine Bacteria Trace 10/27/21 15:06: Activated Clotting Time 283 H* 10/27/21 15:35: Activated Clotting Time 252 H* 10/27/21 22:09: POC Glucose 218 H 10/28/21 06:19: POC Glucose 225 H I & O for Last 24 hours: Intake & Output 10/25/21 10/26/21 10/27/21 10/28/21 11:59 11:59 11:59 11:59 Intake Total 910 / 910 1722 / 1722 911 / 911 Output Total 800 / 800 2500 / 2500 2900 / 2900 Balance 110 / 110 -778 / -778 -1988 / Weight 177 lb 6.4 oz 177 lb 1.557 oz 178 lb 1 oz 175 lb 4.8 oz *Routine Respiratory Exam Respiratory: Present CTA bilaterally *Routine Cardiovascular Exam Cardiovascular: Present RRR Progress Note: A&P Assessment and plan (1) Ischemia of foot: Status: Acute (2) PVD (peripheral vascular disease): Status: Acute (3) HTN (hypertension): Status: Acute (4) Diabetes mellitus with diabetic neuropathy: Status: Chronic (5) Chronic, continuous use of opioids: Status: Chronic (6) Personal history of nicotine dependence: Status: Chronic (7) Hemiplegia affecting right dominant side: Status: Chronic Assessment and Plan Assessment and Plan for All Diagnoses:: Stable from a cardiac standpoint for discharge. Home medication recommendations Aspirin 81 mg daily Xarelto 2.5 mg twice daily Valsartan 80 mg daily Simvastatin 40 mg daily Coreg 12.5 mg twice daily Due to the size of the peripheral stent Plavix is not needed. Patient will continue aspirin and Xarelto as directed. Encouraged to keep the patient's appointments next week for Lexiscan Myoview and echocardiogram. Follow-up in our office 1 to 2 days later for results.
[2021-10-28 11:09] VITALS: BP 177/61; PULSE 73; RESP 17; TEMP 36.4; O2SAT 96
[2021-10-28 11:51] LABS: POC Glucose,Bedside 224 (70-110)
--- NOTE | 2021-10-28 12:44 | EXP.DC.SUM ---
General Admission date:: 10/25/21 Discharge date: 10/28/21 HPI HPI HPI: 70 yo female admitted for ischemic rle took her to er due to pain underlying diabetes and history of significant cva in 2019; bed confined and with residual right sided weakness and speech deficit started on heparin gtt with cardiology consult extensive imaging done, revealing chronic brain atrophy and degenerative changes prosthetic right knee in good position history of lumbar fusion Hospital Course Hospital Course Hospital Course: pt admitted on heparin drip for acute arterial ischemia lower ext - pt requiring routine iv pain meds - seen by card - 1.? Right lower extremity pain with concern for arterial insufficiency with decreased pulses.? No evidence of ulcers or gangrene at this time.? Patient is on heparin drip.? We will plan to proceed with right lower extremity angiogram today. 2.? Diabetes mellitus, Insulin 3.? Hypertension, on coreg and valsartan 4.? Hyperlipidemia, on statin therapy 5.? Remote history of CVA and left carotid endarterectomy, no longer able to walk 6.? Continued tobacco use, cessation recommended pt with procedure -aNGIOGRAPHIC RESULTS Distal abdominal aorta is calcified atheromatous with 20% eccentric stenoses.? The right common iliac artery has a proximal 30 to 40% eccentric stenosis while the left has a greater than 70% eccentric stenosis.? Both internal iliac arteries are widely patent as are both external iliac arteries.? Both common femoral arteries are also widely patent Right superficial femoral artery is ostially occluded and reconstitutes at the popliteal level via collaterals throughout the large profunda femoris.? The profunda femoris artery is subtotally occluded in the proximal segment and has bridging collaterals which then reconstitute the vessel distally.? There are additional tandem 90% stenoses in the large collaterals supplying the popliteal artery. ?The popliteal artery does reconstitute at the perigeniculate level and then slowly fills into the PT trunk.? No further runoff was evaluated due to copious contrast usage and clinical relevance at this point IMPRESSION Severe left common iliac artery stenosis Successful stent to the left common iliac artery severe disease reduced to 0% with 1 bare-metal balloon mounted stent Chronically occluded right superficial femoral artery and proximal right popliteal artery which are collateralized via severely and diffusely diseased profunda femoris. PLAN 1. The right leg is critically diseased and opening the right superficial femoral artery would have no clinical benefit.? Furthermore the profunda femoris artery is severely diffusely and critically diseased and this vessel is not amenable to either surgical or percutaneous revascularization 2. Supportive care and medical management 3. Xarelto 2.5 twice daily plus aspirin 81 mg daily 4. LDL less than 55 to be achieved with high intensity statin 5. Physical therapy 6. Tight control of diabetessessment and plan (1) Ischemia of foot: ?Status:?Acute (2) PVD (peripheral vascular disease): ?Status:?Acute (3) HTN (hypertension): ?Status:?Acute (4) Diabetes mellitus with diabetic neuropathy: ?Status:?Chronic (5) Chronic, continuous use of opioids: ?Status:?Chronic (6) Personal history of nicotine dependence: ?Status:?Chronic (7) Hemiplegia affecting right dominant side: ?Status:?Chronic Assessment and Plan Assessment and Plan for All Diagnoses:: Stable from a cardiac standpoint for discharge. Home medication recommendations Aspirin 81 mg daily Xarelto 2.5 mg twice daily Valsartan 80 mg daily Simvastatin 40 mg daily Coreg 12.5 mg twice daily Due to the size of the peripheral stent Plavix is not needed.? Patient will continue aspirin and Xarelto as directed. Encouraged to keep the patient's appointments next week for Lexiscan Myoview and echocardiogram.? Follow-up in our office 1 t
--- NOTE | 2021-10-28 13:23 | P.CONPHA_ITS ---
PHA Residential Gas Heat Technician Discharge Med Multi Mission Helicopter Aircrewman: Yolanda Agosto has received discharge medication counseling on the following medications: XARELTO (NEW) ASPIRIN SIMVASTATIN CARVEDILOL VALSARTAN PATIENT RECEIVED PERIPHERAL STENT, PLAVIX NOT INDICATED PER CARDIOLOGY. SPOKE TO PATIENT'S . ALL QUESTIONS WERE ANSWERED. NO CONCERNS AT THIS TIME. NEW PRESCRIPTION FOR XARELTO SENT TO [facility] IN [place]. -JOSELIN SANCEHZ, ESTEFANYD
--- NOTE | 2021-10-29 13:15 | CARE MANAGER ---
Attempted post-discharge follow-up call, no answer.
== END 2021-10-28 13:50 | disposition home or self-care (01) | DRG 253 ==
LOC: UTC 18:56 → ER 19:06 → 2ND 10-25 01:35
PROVIDERS: Family Medicine; Internal Medicine; Admitting Provider Emergency Medicine; Emergency Provider Emergency Medicine; PCP Emergency Medicine; Visit Provider Emergency Medicine
DX: E11.51 Type 2 diabetes mellitus with diabetic peripheral angiopathy without gangrene (principal); I69.351 Hemiplegia and hemiparesis following cerebral infarction affecting right dominant side; I70.223 Atherosclerosis of native arteries of extremities with rest pain, bilateral legs; I10 Essential (primary) hypertension; K21.9 Gastro-esophageal reflux disease without esophagitis; E11.40 Type 2 diabetes mellitus with diabetic neuropathy, unspecified; F11.90 Opioid use, unspecified, uncomplicated; Z71.6 Tobacco abuse counseling; F17.200 Nicotine dependence, unspecified, uncomplicated; Z74.01 Bed confinement status; I69.328 Other speech and language deficits following cerebral infarction; I77.1 Stricture of artery
CPT/HCPCS: 36246; 36415; 37221; 70450; 72125; 72128; 72131; 73502; 73562; 73700; 75710; 80048; 80053; 81001; 82962; 83605; 84145; 85025; 85347; 85610; 85651; 85730; 86140; 87040; 99152; 99153; 99285; C1725; C1769; C1876; C1894; C9803; J1644; Q9966; U0003; U0005

== ENCOUNTER → 2021-11-16 07:36 | Outpatient (CLI) | payer MEDICARE, SELFPAY | PROVIDERS: PCP Emergency Medicine; Visit Provider Nurse Practitioner | DX: I10 Essential (primary) hypertension (principal); K21.9 Gastro-esophageal reflux disease without esophagitis; R06.09 Other forms of dyspnea; R07.89 Other chest pain; R94.31 Abnormal electrocardiogram [ECG] [EKG] | CPT/HCPCS: 93306 ==

== ENCOUNTER → 2022-02-24 15:00 | Outpatient (CLI) | payer MEDICARE, SELFPAY | PROVIDERS: PCP Emergency Medicine; Visit Provider Emergency Medicine | DX: R82.90 Unspecified abnormal findings in urine (principal) | CPT/HCPCS: 87086 ==

== ENCOUNTER 2022-03-11 09:02 | Day surgery (SDC) | payer MEDICARE, SELFPAY ==
[2022-03-11] VITALS (13 sets, daily range): BP systolic 136–200; BP diastolic 54–100; PULSE 61–74; RESP 18–61; TEMP 36.9; O2SAT 90–98; BMI 34.3
--- NOTE | 2022-03-11 07:08 | IR_ITS ---
APPROVED REPORT Patient Location: Outpatient Advanced Manager: ROMA Buchanan RT (R) PROCEDURES Left heart catheterization Left ventriculogram Selective coronary angiogram INDICATION Elevated angina pectoris Informed consent was obtained prior to the procedure. COMPLICATIONS None Estimated Blood Loss: Less than 10 ml TECHNIQUE One percent lidocaine used to anesthetize the right anterior aspect of the wrist. The right radial artery was accessed via the Seldinger technique. A 6 Icelandic sheath was placed in the right radial artery. 2.5 mg of verapamil, 800 mcg of nitroglycerin, 1mg Lidocaine and 5000 U Heparin were given through the arterial sheath. The papa catheter was also used to perform left heart catheterization, left ventriculogram and selective coronary angiogram. At the end of the procedure the sheath was removed good hemostasis was achieved using Traclet band, patient was transferred to the postop holding area in stable condition. ANGIOGRAPHIC RESULTS The left main artery Normal The left anterior descending artery Has mild proximal and mid vessel 20% stenoses The circumflex artery Nondominant with mild luminal irregularities The right coronary artery Dominant with mid vessel 40% stenosis distal 30% stenoses with 30% stenosis in the posterior descending artery The MANNING ventriculogram reveals Hyperdynamic ejection fraction 70 to 75% The left ventricular end-diastolic pressure 25 mmHg IMPRESSION Mild to moderate disease in the right coronary artery as described above Malignant hypertension prior to cardiac catheterization with blood pressure of 240 mmHg systolic Hyperdynamic ventricle consistent with hypertensive heart disease Elevated LVEDP consistent with diastolic dysfunction and hypertensive heart disease PLAN 1. Medical management. Patient's angina is almost certainly stemming from malignant hypertension 2. Consider renal duplex to evaluate for renal artery stenosis Electronically signed by : Kb Temple MD 03/11/2022 11:52:43
[2022-03-11 09:34] LABS: Basophils # 0.1 K/mm3 (0-0.2); Basophils % 1.2 % (0.1-2.0); Eosinophils # 0.1 K/mm3 (0.0-0.4); Eosinophils % 0.7 % (0.1-12.0); Hemoglobin 13.3 g/dL (12.2-16.2); Lymphocytes # 2.8 K/mm3 (0.7-4.5); Lymphocytes % 25.1 % (10-50); Mean Corpuscular HGB Conc 30.8 g/dL (31.8-35.4); Mean Corpuscular Hemoglobin 34.1 pg (27.0-31.2); Mean Corpuscular Volume 110.6 fl (81-99); Mean Platelet Volume 7.3 fl (7.4-10.4); Monocytes # 0.6 K/mm3 (0.1-1.0); Monocytes % 5.7 % (1.7-9.3); Neutrophils # 7.4 K/mm3 (1.8-7.8); Neutrophils % 67.3 % (37.0-80.0); Platelet Count 411 K/mm3 (142-424); Red Blood Count 3.89 M/mm3 (4.20-5.40); Red Cell Distribution Width 14.8 % (11.5-17.5)
[2022-03-11 09:40] LABS: Chloride 104 mmol/L (98-107); Potassium 5.1 mmoL/L (3.5-5.1); Sodium 138 mmol/L (136-145)
[2022-03-11 09:43] LABS: Blood Urea Nitrogen 16 mg/dl (7-17); Creatinine Clearance Estimated 61 mL/min (50-200); Estimated Glomerular Filt Rate 98 ml/min (>60); GFR (African American) 119 ML/MIN (>60)
[2022-03-11 09:44] LABS: Anion Gap 14.1 mEq/L (5-15); Calcium 8.9 mg/dl (8.4-10.2); Carbon Dioxide 25 mmol/L (22.0-30.0); Glucose 148 mg/dl (74-100)
== END 2022-03-11 13:47 | disposition home or self-care (01) ==
PROVIDERS: Internal Medicine Cardiovascular Disease; PCP Emergency Medicine; Visit Provider Internal Medicine
DX: I25.110 Atherosclerotic heart disease of native coronary artery with unstable angina pectoris; E11.40 Type 2 diabetes mellitus with diabetic neuropathy, unspecified; I10 Essential (primary) hypertension; I73.9 Peripheral vascular disease, unspecified; J44.9 Chronic obstructive pulmonary disease, unspecified; R06.02 Shortness of breath; Z79.4 Long term (current) use of insulin; Z79.899 Other long term (current) drug therapy
CPT/HCPCS: 36415; 80048; 85025; 93458; 99152; C1725; C1769; J1644; Q9967

== ENCOUNTER → 2022-03-19 15:12 | Outpatient (CLI) | payer MEDICARE, SELFPAY ==
[2022-03-19 14:41] LABS: Coronavirus 19, PCR Not Detected (NotDetected); Influenza A, PCR Not Detected (NotDetected); Influenza B, PCR Not Detected (NotDetected)
== END ==
PROVIDERS: PCP Emergency Medicine; Visit Provider Emergency Medicine
DX: J02.9 Acute pharyngitis, unspecified (principal)
CPT/HCPCS: C9803; U0003; U0005

== ENCOUNTER → 2022-04-06 08:17 | Outpatient (CLI) | payer MEDICARE, SELFPAY ==
--- NOTE | 2022-04-06 08:18 | CA_ITS ---
FINAL REPORT TECHNIQUE: Grayscale, color Doppler and duplex Doppler ultrasound of the kidneys, aorta and renal arteries was performed. Multiple velocities were measured. CLINICAL HISTORY: HTN FINDINGS: This study was technically difficult, the proximal renal arteries were not visualized. Aorta velocity: 112 cm/sec Right kidney: 9.0 cm. No evidence of hydronephrosis or mass. Right intrarenal RI: 0.69 Right renal artery velocity: 174 cm/sec. Right RAR (Renal artery-Aortic Ratio): 1.6 Left Kidney: 10.1 cm. There is a 3.8 cm simple appearing cyst in the mid pole. Left intrarenal RI: 0.65 Left renal artery velocity: 132 cm/sec. Left RAR (Renal Artery-Aortic Ratio): 1.18 IMPRESSION: Limited study, however, no evidence of significant renal artery stenosis in the visualized vessels. 3.8 cm simple appearing left renal cyst. CT angiogram or postcontrast MR angiogram would be more sensitive for evaluation of possible renal artery stenosis. Reviewed, Interpreted and Dictated by Odette Mendoza MD Transcribed by Lise Brown Authenticated and . [facility]
--- NOTE | 2022-04-06 09:19 | US_ITS ---
FINAL REPORT TECHNIQUE: Ultrasound images of the kidneys and bladder were obtained. CLINICAL HISTORY: I10 - Essential (primary) hypertension FINDINGS: The right kidney measures 8.2 cm in length. It is normal in echogenicity. There is no hydronephrosis. The left kidney measures 9.2 cm in length. It is normal in echogenicity. There is no hydronephrosis. There is a cyst in the lower pole. IMPRESSION: Left renal cyst. Reviewed, Interpreted and Dictated by Odette Mendoza MD Transcribed by Sarai Rodríguez Authenticated and . [facility]
== END ==
PROVIDERS: PCP Emergency Medicine; Visit Provider Internal Medicine Cardiovascular Disease
DX: I10 Essential (primary) hypertension (principal)
CPT/HCPCS: 76770; 93976

== ENCOUNTER 2022-09-11 15:25 | Emergency (ER) | payer MEDICARE, SELFPAY ==
[2022-09-11] VITALS (12 sets, daily range): BP systolic 117–208; BP diastolic 59–84; PULSE 61–68; RESP 18–20; TEMP 36.6–36.8; O2SAT 94–99; BMI 44.2
--- NOTE | 2022-09-11 15:31 | ECG_ITS ---
APPROVED REPORT Exam: Resting ECG HR:64 bpm ECG Measurements Heart Rate 64 AXES UT 152 P -72 QRSd 86 QRS -26 QT 427 T 158 QTc 436 Conclusion ECTOPIC ATRIAL RHYTHM BORDERLINE LEFT AXIS DEVIATION [QRS AXIS < -20] ST DEVIATION AND MODERATE T-WAVE ABNORMALITY, CONSIDER LATERAL ISCHEMIA [-0.1+ mV T-WAVE IN I/aVL/V5/V6] ABNORMAL ECG UNCONFIRMED REPORT Electronically signed by : Antonio Ta MD 09/13/2022 18:02:44
--- NOTE | 2022-09-11 15:38 | PC.NURSE ---
pt given oral care at arrival; at
--- NOTE | 2022-09-11 15:42 | XR_ITS ---
PROCEDURE INFORMATION: Exam: XR Chest Exam date and time: 09/11/2022 3:45 PM Age: 71 years old Clinical indication: Other: Chest pain TECHNIQUE: Imaging protocol: Radiologic exam of the chest. Views: 1 view. Total images: 1 COMPARISON: CR XR CHEST 2V 10/16/2020 4:51 PM FINDINGS: Lungs: Atelectatic changes noted within both lung bases. No focal pneumonia or pneumothorax. Pleural spaces: No pleural effusions. Heart/Mediastinum: Heart demonstrates mild diffuse enlargement. Bones/joints: Postoperative changes of the thoracolumbar spine. IMPRESSION: 1. Mild cardiomegaly. 2. Atelectatic changes noted within both lung bases. 3. No focal pneumonia or pneumothorax. 4. No pleural effusions.
--- NOTE | 2022-09-11 15:43 | HMH.EDGENADL ---
Discharge Plan Disposition Patient Disposition: Home, Self-Care Condition: Fair Chief Complaint: Weakness Prescriptions Prescriptions: No Action alendronate 70 mg tablet 70 mg PO WEEKLY 84 Days Qty: 12 0RF aspirin 81 mg tablet,delayed release (DR/EC) 81 mg PO DAILY 30 Days Qty: 30 0RF Linzess 145 mcg capsule 145 mcg PO DAILY Qty: 90 0RF melatonin-pyridoxine HCl (B6) 5-10 mg tablet 1 tab PO HS 30 Days Qty: 30 0RF metformin 1,000 mg tablet 1,000 mg PO BIDWM 30 Days Qty: 60 0RF Hold Instructions: Resume on 03/13/22. hold for two days atorvastatin [Lipitor] 40 mg tablet 40 mg PO DAILY Qty: 90 3RF carvedilol 25 mg tablet 25 mg PO BID Qty: 180 3RF alprazolam [Xanax] 0.25 mg tablet 0.25 mg PO BID Qty: 60 2RF levofloxacin 500 mg tablet 500 mg PO DAILY 10 Days Qty: 10 0RF amlodipine [Norvasc] 10 mg tablet 10 mg PO DAILY Qty: 90 3RF valsartan-hydrochlorothiazide [Diovan HCT] 320-12.5 mg tablet 1 tab PO DAILY Qty: 90 3RF clopidogrel [Plavix] 75 mg tablet 75 mg PO DAILY Qty: 90 3RF paroxetine HCl 20 mg tablet 60 mg PO HS 30 Days Qty: 30 0RF ondansetron HCl 4 mg tablet See Rx Instructions .ROUTE .COMPLEX Qty: 30 2RF Rx Instructions: TAKE 1 TABLET BY MOUTH EVERY 8 HOURS NEEDED FOR NAUSEA AND VOMITING topiramate 50 mg tablet 50 mg PO HS 90 Days Qty: 90 3RF Soliqua 100/33 100 unit-33 mcg/mL insulin pen 32 unit SQ DAILY Qty: 15 2RF quetiapine 50 mg tablet See Rx Instructions .ROUTE .COMPLEX Qty: 60 0RF Dose Instruction: TAKE 1 TABLET EVERY DAY Rx Instructions: TAKE 1 TABLET EVERY DAY (DME) BD Specialty Use Wesley 30 gauge x 1 needle See Rx Instructions .Route Qty: 100 0RF Rx Instructions: As directed 1 per week cyanocobalamin (vitamin B-12) 1,000 mcg/mL solution See Rx Instructions .ROUTE .COMPLEX Qty: 10 0RF Dose Instruction: INJECT 1000MCG INTRAMUSCULARLY WEEKLY FOR SUPPLEMENT FOR 30 DAY Rx Instructions: INJECT 1000MCG INTRAMUSCULARLY WEEKLY FOR SUPPLEMENT FOR 30 DAY hydroxyzine HCl 10 mg tablet See Rx Instructions .ROUTE .COMPLEX Qty: 120 0RF Dose Instruction: TAKE 1 TABLET TWICE DAILY FOR ANXIETY Rx Instructions: TAKE 1 TABLET TWICE DAILY FOR ANXIETY docusate sodium 250 mg capsule See Rx Instructions .ROUTE .COMPLEX Qty: 120 0RF Dose Instruction: TAKE 1 CAPSULE TWICE DAILY FOR CONSTIPATION Rx Instructions: TAKE 1 CAPSULE TWICE DAILY FOR CONSTIPATION insulin asp prt-insulin aspart [Novolog Mix 70-30 U-100 Insuln] 100 unit/mL (70-30) solution See Rx Instructions .ROUTE .COMPLEX Qty: 20 2RF Dose Instruction: INJECT 12 UNITS UNDER THE SKIN EVERY DAY FOR DIABETES (DISCARD VIAL 28 DAYS AFTER OPENING) Rx Instructions: INJECT 12 UNITS UNDER THE SKIN EVERY DAY FOR DIABETES (DISCARD VIAL 28 DAYS AFTER OPENING) oxycodone-acetaminophen 1 EACH tablet 1 ea PO QIDP PRN (Reason: Pain) polyethylene glycol 3350 [Miralax] 17 gram/dose powder 17 g PO DAILY lactulose 20 gram/30 mL solution 20 g PO .every other day omeprazole 20 mg capsule,delayed release(DR/EC) 20 mg PO DAILY metoclopramide HCl 10 mg tablet 10 mg PO ACHS gabapentin 300 mg capsule 300 mg PO TID Referrals Follow up/Referrals: Provider,MD Aman [Referring] - See instructions Kb Temple MD [Staff Physician] - See instructions Activity Restrictions/Add. Instructions Additional Instructions/Restrictions: At this time is felt you are safe to be discharged home. If new or worsening symptoms please do not hesitate to return the emergency department. Please schedule follow-up with cardiology on an outpatient basis as soon as you are able Clinical Impressions Clinical Impression: Chest pain Discharge ED Provider: [facility] HPI General Chief complaint: Weakness Stated complaint: pain Time
[2022-09-11 15:50] LABS: Basophils # 0.1 K/mm3 (0-0.2); Basophils % 1.2 % (0.1-2.0); Eosinophils # 0.1 K/mm3 (0.0-0.4); Eosinophils % 1.6 % (0.1-12.0); Hematocrit 42.4 % (37.0-47.0); Hemoglobin 13.2 g/dL (12.2-16.2); Lymphocytes # 2.7 K/mm3 (0.7-4.5); Lymphocytes % 31.2 % (10-50); Mean Corpuscular HGB Conc 31.2 g/dL (31.8-35.4); Mean Corpuscular Hemoglobin 32.3 pg (27.0-31.2); Mean Corpuscular Volume 103.4 fl (81-99); Monocytes # 0.5 K/mm3 (0.1-1.0); Monocytes % 5.3 % (1.7-9.3); Neutrophils # 5.3 K/mm3 (1.8-7.8); Neutrophils % 60.8 % (37.0-80.0); Platelet Count 463 K/mm3 (142-424); Red Cell Distribution Width 14.7 % (11.5-17.5); White Blood Count 8.7 K/mm3 (4.8-10.8)
[2022-09-11 15:56] LABS: Alanine Aminotransferase 18 U/L (12-78); Albumin Level 3.5 g/dl (3.5-5.0); Albumin/Globulin Ratio 1.2 (1.1-1.8); Alkaline Phosphatase 149 U/L (38-126); Anion Gap 14.3 mEq/L (5-15); Aspartate Amino Transferase 22 U/L (14-36); Bilirubin,Total 0.2 mg/dl (0.2-1.3); Blood Urea Nitrogen 14 mg/dl (7-17); Calcium 9.1 mg/dl (8.4-10.2); Carbon Dioxide 23 mmol/L (22.0-30.0); Chloride 101 mmol/L (98-107); Creatinine Clearance Estimated 41 mL/min (50-200); Estimated Glomerular Filt Rate 70 ml/min (>60); GFR (African American) 85 ML/MIN (>60); Glucose 291 mg/dl (74-100); Potassium 4.3 mmoL/L (3.5-5.1); Sodium 134 mmol/L (136-145); Total Protein,Serum 6.5 g/dl (6.3-8.2)
[2022-09-11 16:08] LABS: Troponin I < 0.01 ng/ml (0.00-0.034)
--- NOTE | 2022-09-11 17:55 | PC.NURSE ---
pt asked me to call i did but no answer nothing else needed at this time, call light at bs
--- NOTE | 2022-09-11 17:58 | PC.NURSE ---
arrived and is now at [facility]
--- NOTE | 2022-09-11 19:42 | ECG_ITS ---
APPROVED REPORT Exam: Resting ECG HR:68 bpm ECG Measurements Heart Rate 68 AXES MT 163 P 54 QRSd 82 QRS -26 QT 428 T 158 QTc 445 Conclusion SINUS RHYTHM LEFT AXIS DEVIATION [QRS AXIS < -20] ST/T wave changes-previously noted ABNORMAL ECG UNCONFIRMED REPORT Electronically signed by : Antonio Ta MD 09/12/2022 08:42:01
[2022-09-11 20:21] LABS: Troponin I < 0.01 ng/ml (0.00-0.034)
== END 2022-09-11 21:24 | disposition home or self-care (01) ==
PROVIDERS: Emergency Provider Emergency Medicine; PCP Emergency Medicine
DX: R07.9 Chest pain, unspecified (principal); I10 Essential (primary) hypertension; E11.40 Type 2 diabetes mellitus with diabetic neuropathy, unspecified; I25.10 Atherosclerotic heart disease of native coronary artery without angina pectoris; E11.621 Type 2 diabetes mellitus with foot ulcer; L97.509 Non-pressure chronic ulcer of other part of unspecified foot with unspecified severity
CPT/HCPCS: 36415; 71045; 80053; 84484; 85025; 93005; 96374; 96375; 99285; J2405

== ENCOUNTER 2023-03-21 12:06 | Outpatient (CLI) | payer MEDICARE, SELFPAY ==
[2023-03-21 12:55] LABS: Basophils # 0.1 K/mm3 (0-0.2); Basophils % 0.8 % (0.1-2.0); Eosinophils # 0.1 K/mm3 (0.0-0.4); Eosinophils % 1.4 % (0.1-12.0); Hematocrit 38.2 % (37.0-47.0); Hemoglobin 12.3 g/dL (12.2-16.2); Lymphocytes # 2.2 K/mm3 (0.7-4.5); Lymphocytes % 22.2 % (10-50); Mean Corpuscular HGB Conc 32.1 g/dL (31.8-35.4); Mean Corpuscular Hemoglobin 33.1 pg (27.0-31.2); Mean Corpuscular Volume 103.1 fl (81-99); Mean Platelet Volume 7.9 fl (7.4-10.4); Monocytes # 0.6 K/mm3 (0.1-1.0); Monocytes % 5.5 % (1.7-9.3); Neutrophils % 70.1 % (37.0-80.0); Platelet Count 336 K/mm3 (142-424); Red Cell Distribution Width 14.4 % (11.5-17.5)
[2023-03-21 13:13] LABS: Alanine Aminotransferase 16 U/L (12-78); Albumin Level 3.6 g/dl (3.5-5.0); Albumin/Globulin Ratio 1.2 (1.1-1.8); Alkaline Phosphatase 93 U/L (38-126); Anion Gap 15.6 mEq/L (5-15); Aspartate Amino Transferase 17 U/L (14-36); Bilirubin,Total 0.5 mg/dl (0.2-1.3); Blood Urea Nitrogen 26 mg/dl (7-17); Carbon Dioxide 23 mmol/L (22.0-30.0); Chloride 102 mmol/L (98-107); Chol/HDL Ratio 4.5 (1-3.5); Cholesterol 153 mg/dl (140-200); Estimated Glomerular Filt Rate 49 ml/min (>60); GFR (African American) 59 ML/MIN (>60); Globulin 2.9 g/dL (1.3-3.2); Glucose 214 mg/dl (74-100); HDL Cholesterol 34 mg/dl (40-60); Potassium 4.6 mmoL/L (3.5-5.1); Sodium 136 mmol/L (136-145); Total Protein,Serum 6.5 g/dl (6.3-8.2); Triglycerides 233 mg/dl (30-150); VLDL Cholesterol 47 mg/dL (0-40)
[2023-03-21 13:24] LABS: Direct LDL Cholesterol 69.71 mg/dL (100-129)
[2023-03-21 13:29] LABS: 25-OH Vitamin D, Total 14.2 ng/mL (30-100); Hemoglobin A1C 9.3 % (4.0-6.0)
== END 2023-03-21 23:59 ==
PROVIDERS: PCP Internal Medicine; Visit Provider Internal Medicine
DX: E55.9 Vitamin D deficiency, unspecified (principal); E11.9 Type 2 diabetes mellitus without complications; E78.5 Hyperlipidemia, unspecified; D64.9 Anemia, unspecified; Z79.4 Long term (current) use of insulin; Z79.899 Other long term (current) drug therapy
CPT/HCPCS: 36415; 80053; 80061; 82306; 83036; 85025

== ENCOUNTER 2023-04-01 16:24 | Observation (INO) | payer MEDICARE, SELFPAY ==
[2023-04-01] VITALS (8 sets, daily range): BP systolic 121–187; BP diastolic 44–103; PULSE 72–85; RESP 16–17; TEMP 36.6–36.8; O2SAT 94–100; BMI 28.1
--- NOTE | 2023-04-01 16:51 | PC.NURSE ---
pt given ice chips.
--- NOTE | 2023-04-01 17:14 | CT_ITS ---
PROCEDURE INFORMATION: Exam: CT Abdomen And Pelvis With Contrast Exam date and time: 04/01/2023 6:02 PM Age: 72 years old Clinical indication: Vomiting; Abdominal pain; Additional info: Vomiting, abd pain TECHNIQUE: Imaging protocol: Computed tomography of the abdomen and pelvis with contrast. Radiation optimization: All CT scans at this facility use at least one of these dose optimization techniques: automated exposure control; mA and/or kV adjustment per patient size (includes targeted exams where dose is matched to clinical indication); or iterative reconstruction. Contrast material: ISOVUE; Contrast volume: 75 ml; Contrast route: IV; COMPARISON: [id number] CT abdomen pelvis wo con 01/22/2018 23:10 FINDINGS: Tubes, catheters and devices: Lucency around the left sacroiliac screw is similar to prior study likely representing chronic loosening. Lungs: Mild scarring and atelectasis in the lower lungs. Heart: Cardiomegaly. Mitral valve calcifications. Coronary arteries: Coronary artery calcifications. Liver: Possible hepatic steatosis. Gallbladder and bile ducts: Gallbladder is absent. Pancreas: Normal. No ductal dilation. Spleen: Normal. No splenomegaly. Adrenal glands: Normal. No mass. Kidneys and ureters: Low attenuation renal lesions measuring up to 3.6 cm in diameter are incompletely characterized, but are likely cysts. No followup imaging is warranted. Stomach and bowel: Large amount of stool throughout the colon. Appendix: Unremarkable appendix. Intraperitoneal space: Unremarkable. No free air. No significant fluid collection. Vasculature: The arteries demonstrate severe atherosclerotic disease. Lymph nodes: Unremarkable. No enlarged lymph nodes. Urinary bladder: Unremarkable as visualized. Reproductive: Status post hysterectomy. Bones/joints: Status post total left hip arthroplasty. The hardware appears intact. Extensive fusion of the spine and sacroiliac joints. Old right rib fractures. Soft tissues: Unremarkable. Other findings: Stigmata of old granulomatous disease. IMPRESSION: Large amount of stool throughout the colon. COMMENTS: Consistent with the [employer]'s Incidental Findings Committee white paper (J Am Fede Radiol 2018): Any incidental renal lesion less than 1 cm or classified as too small to characterize, or any incidental cystic renal lesion characterized as simple-appearing, is likely benign. No follow-up imaging is recommended for these lesions per consensus recommendations based on imaging criteria.
--- NOTE | 2023-04-01 17:14 | XR_ITS ---
PROCEDURE INFORMATION: Exam: XR Chest Exam date and time: 04/01/2023 6:04 PM Age: 72 years old Clinical indication: Other: Vomiting TECHNIQUE: Imaging protocol: Radiologic exam of the chest. Views: 1 view. COMPARISON: CR XR CHEST PORTABLE 11/09/2022 15:45 FINDINGS: Tubes, catheters and devices: Left neck surgical clips. Lungs: Mild scarring and atelectasis in the lower lungs. Pleural spaces: Unremarkable. No pleural effusion. No pneumothorax. Heart/Mediastinum: Cardiomegaly. Vasculature: Vascular calcifications. Bones/joints: Postsurgical changes of the spine. Advanced osteoarthrosis of the shoulders. IMPRESSION: No acute findings.
--- NOTE | 2023-04-01 17:16 | HMH.EDGENADL ---
Discharge Plan Disposition Patient Disposition: Admitted Clinical Impressions Clinical Impression: Nausea & vomiting Qualifiers: Vomiting type: unspecified Qualified Code(s): R11.2 - Nausea with vomiting, unspecified Discharge ED Provider: Kaushik Newton General Adult HPI General Chief complaint: Nausea/Vomiting/Diarrhea Stated complaint: nausea, weak, high BP Time Seen by Provider: 04/01/23 16:27 Mode of Arrival: Wheelchair Source of Information: Patient and Relative Limitations: No Limitations Description of Symptoms (Recalled from ER Triage Doc. by RN): pt brought to ED with c/o nausea, vomitting. pts daughter reports pt was seen by pcp dr price, and medications were changed. pts daughter unsure of medications that were changed. pt unable to answer questions approriately. pt has had hx of stroke and does have left sided contractures on upper extremity. family reports high blood pressure readings at home. History of Present Illness HPI narrative: 72-year-old female with 3 of CVA on aspirin and Plavix, see ED, hypertension, hyperal, type 2 diabetes, COPD not on home oxygen presenting with vomiting. Patient has been vomiting since earlier today. Had a medication change, unsure if it is associated with that. Vomiting is nonbloody, nonbilious. Patient is passing gas, does not remember last bowel movement. Related Data Home Medications Medication Instructions Recorded Confirmed lactulose 20 gram/30 mL oral 20 g PO .every other day 10/25/21 03/31/23 solution constipation metoclopramide HCl 10 mg tablet 10 mg PO ACHS stomach 10/25/21 03/31/23 omeprazole 20 mg capsule,delayed 20 mg PO DAILY acid reflux 10/25/21 03/31/23 release oxycodone-acetaminophen 10 mg-325 1 ea PO QIDP PRN Pain 10/25/21 03/31/23 mg tablet polyethylene glycol 3350 17 17 g PO DAILY bowels 10/25/21 03/31/23 gram/dose oral powder (Miralax) baclofen 10 mg tablet 10 mg PO Q8H 02/09/23 03/31/23 docusate sodium 250 mg capsule 250 mg PO BID 02/09/23 03/31/23 (Stool Softener) hydroxyzine HCl 10 mg tablet 10 mg PO BID 02/09/23 03/31/23 metformin 1,000 mg tablet 1,000 mg PO BID 02/09/23 03/31/23 quetiapine 50 mg tablet 50 mg PO DAILY 02/09/23 03/31/23 syringe with needle 3 mL 25 gauge #1 ea 02/09/23 03/31/23 x 1 (BD Luer-Jackie Syringe) ondansetron HCl 4 mg tablet 4 mg PO Q8H 03/31/23 Previous Rx's Medication Instructions Recorded alendronate 70 mg tablet 70 mg PO WEEKLY Osteoporosis 84 12/29/21 days #12 tabs aspirin 81 mg tablet,delayed 81 mg PO DAILY HEART HEALTH 30 12/29/21 release days #30 tabs melatonin-pyridoxine HCl (vitamin 1 tab PO HS SLEEP 30 days #30 tabs 12/29/21 B6) 5 mg-10 mg tablet amlodipine 10 mg tablet (Norvasc) 10 mg PO DAILY #90 tabs 05/21/22 clopidogrel 75 mg tablet (Plavix) 75 mg PO DAILY CAD #90 tabs 05/21/22 valsartan 320 1 tab PO DAILY #90 tabs 05/21/22 mg-hydrochlorothiazide 12.5 mg tablet (Diovan HCT) insulin aspar prt-insulin aspart See Rx Instructions .Route 09/08/22 100 unit/mL (70-30) subcutaneous .COMPLEX #20 mL soln (Novolog Mix 70-30 U-100 Insuln) insulin glargine 100 See Rx Instructions .Route 11/05/22 unit-lixisenatide 33 mcg/mL .COMPLEX #30 mL subcutaneous pen (Soliqua 100/33) gabapentin 600 mg tablet 600 mg PO TID 90 days #270 tabs 12/15/22 oral dosing syringes #100 ea 12/28/22 carvedilol 25 mg tablet 25 mg PO BID Hypertension #180 tabs 01/04/23 atorvastatin 40 mg tablet (Lipitor) 40 mg PO DAILY #90 tabs 01/12/23 paroxetine HCl 20 mg tablet 60 mg PO HS MOOD 90 days #270 tabs 01/12/23 blood sugar diagnostic (Blood #50 ea 02/22/23 Glucose Test strips) needle (disp) 30 gauge 30 gauge x #100 ea 02/22/23 1 (BD Specialty Use [place]) cholecalciferol (vitamin D3) 1,250 1,250 mcg PO WEEKLY #10 caps 03/25/23 mcg (50,000 unit) capsule cyanocobalamin (vitamin B-12) 1,000 mcg IM WEEKLY #10 mL 03/25/23 1,000 mcg/mL injection solution alprazolam 0.25 mg tablet (Xanax) 0.25 mg PO BID Anxiety #14 tabs 03/31/23 atogepant 60 mg tablet (Qulipta) 60 mg PO DAILY #30 tabs 03/31/23 cariprazine 1.5 mg capsule 1.5 mg PO DAILY #30 caps 03/31/23 (Vraylar) empagliflozin 25 mg tablet 25 mg PO DAILY #30 tabs 03/31/23 (Jardiance) prochlorperazine maleate 5 mg 5 mg PO TID PRN anxiety #30 tabs 04/01/23 tablet Allergies Allergy/AdvReac Type Severity Reaction Status Date / Time cefuroxime [From CEFTIN] Allergy Mild Verified 03/31/23 10:17 [facility] Disclaimer: The information contained in this section may have been updated after the patient was seen, as this information can be updated by other users. Medical History (Updated 04/02/23 @ 00:05 by Kaushik Newton MD) Abnormal electrocardiography Bronchitis Callus of foot Chest pain Chest pain Chronic prescription opiate use Chronic, continuous use of opioids Coronary artery disease Declining functional status Decubitus skin ulcer Diabetic foot Dyspnea Gastroenteritis Gastroesophageal reflux disease Hemiplegia affecting right dominant side HTN (hypertension) Hypertensive urgency Left shoulder strain Neuropathy, cervical (radicular) Onychomycosis Pain due to onychomycosis of toenails of both feet Renal cyst, left Social History (Updated 04/01/23 @ 23:58 by Marcelina Richter RN) Smoking Status: Never smoker alcohol intake: former substance use type: denies use current occupational status: retired Travel in the last 8 weeks: Inside the [employer] States household members: spouse housing: other caffeine: No ROS Obtained: Yes All systems reviewed & no additional complaints except as documented Physical Exam General General appearance: alert and in no apparent distress Head Head exam: atraumatic and normocephalic Eye Eye exam: Present normal appearance, PERRL and EOMI ENT ENT exam: Present mucous membranes dry Neck Neck exam: Present normal inspection, full ROM and trachea midline Respiratory Respiratory exam: Present normal lung sounds bilaterally; Absent respiratory distress, wheezes, stridor, accessory muscle use or prolonged expiratory phase Cardiovascular Cardiovascular exam: Present regular rate and normal rhythm Abdominal Exam Abdominal exam: Present soft; Absent distention, tenderness, guarding, rebound or rigidity Extremities Exam Extremities exam: Present edema Neurological Exam Neurological exam: Present alert, oriented X3 and other (At neurologic baseline) Skin Skin exam: Present warm and dry; Absent diaphoresis or erythema Medical Decision Making Medical Records Medical records reviewed: Yes I reviewed the patient's medical records. Lm Inquiry Pt receiving controlled substance: No Lm was queried for this patient: No Vital Signs: 04/01/23 16:39 04/01/23 17:30 04/01/23 22:38 Temperature 98.3 F 97.9 F Temperature Source Oral Oral Pulse Rate 72 74 Pulse Rate [Left Radial] 75 Respiratory Rate 17 16 Blood Pressure 121/44 L 127/82 Blood Pressure [Right Arm] 149/80 H Blood Pressure Mean Blood Pressure Mean [Right Arm] 103 Blood Pressure Source Automatic Cuff Blood Pressure Position Supine 02 Sat by Pulse Oximetry 95 94 L Oxygen Delivery Method Room Air Room Air Room Air 04/01/23 19:52 04/01/23 20:02 04/01/23 20:30 Temperature Temperature Source Pulse Rate 78 83 82 Pulse Rate [Left Radial] Respiratory Rate Blood Pressure 156/69 H 159/103 H 150/66 H Blood Pressure [Right Arm] Blood Pressure Mean Blood Pressure Mean [Right Arm] Blood Pressure Source Blood Pressure Position 02 Sat by Pulse Oximetry 95 97 97 Oxygen Delivery Method 04/01/23 22:07 04/01/23 23:01 Temperature Temperature Source Pulse Rate 85 Pulse Rate [Left Radial] Respiratory Rate Blood Pressure 187/73 H 174/66 H Blood Pressure [Right Arm] Blood Pressure Mean 102 Blood Pressure Mean [Right Arm] Blood Pressure Source Blood Pressure Position 02 Sat by Pulse Oximetry 97 Oxygen Delivery Method Lab Data Lab Results 04/01/23 16:40: WBC 11.3 H, RBC 4.23, Hgb 14.1, Hct 43.1, MCV 101.8 H, MCH 33.4 H, MCHC 32.8, RDW 14.3, Plt Count 414, MPV 7.4, Neut % (Auto) 85.6 H, Lymph % (Auto) 9.0 L, [place] % (Auto) 5.0, Eos % (Auto) 0.0 L, Baso % (Auto) 0.3, Neut # (Auto) 9.7 H, Lymph # (Auto) 1.0, [place] # (Auto) 0.6, Eos # (Auto) 0.0, Baso # (Auto) 0.0, Total Counted 100, Neutrophils % (Manual) 85 H, Lymphocytes % (Manual) 14, Monocytes % (Manual) 1 L, Platelet Estimate Normal, Macrocytosis 1+, Sodium 133 L, Potassium 3.8, Chloride 100, Carbon Dioxide 28, Anion Gap 8.8, BUN 14, Creatinine 0.60, Estimated Creat Clear 64, Estimated GFR 98, Est GFR ( Amer) 118, Glucose 280 H, Lactate 2.0, Calcium 9.5, Total Bilirubin 0.8, AST 36, ALT 27, Alkaline Phosphatase 108, Total Protein 7.8, Albumin 4.2, Globulin 3.6 H, Albumin/Globulin Ratio 1.2, Lipase 47 04/01/23 19:15: SARS-CoV-2 (PCR) Not detected, Influenza A Untype (PCR) Not detected, Influenza Type B (PCR) Not detected 04/01/23 22:00: Urine Color Yellow, Urine Appearance Cloudy, Urine pH 6.0, Ur Specific [place] 1.020, Urine Protein 2+, Urine Glucose (UA) 2+, Urine Ketones Negative, Urine Blood 2+, Urine Nitrate Negative, Urine Bilirubin Negative, Urine Urobilinogen 0.2, Ur Leukocyte Esterase Trace, Urine RBC 3-5, Urine WBC 5-10, Ur Squamous Epith Cells 5-10, Urine Bacteria 1+ 04/01/23 16:40 04/01/23 16:40 Orders (Tests/Meds): ED MEDICATIONS Generic Name Dose Route Start Last Admin Trade Name Freq PRN Reason Stop Dose Admin Acetaminophen 650 mg 04/01/23 22:28 Acetaminophen 325mg Tab PO 05/01/23 22:27 Q4HP PRN Fever or Mild Pain (1-3) Al Hydrox/Mg Hydrox/Simethicone 30 ml 04/01/23 22:28 Aluminum/Magnesium/Simethicone 30ml Udc PO 05/01/23 22:27 QIDP PRN Dyspepsia Enoxaparin Sodium 40 mg 04/02/23 09:00 Enoxaparin 40mg/0.4ml Syringe SQ 05/02/23 08:59 DAILY DANITZA Sodium Chloride 1,000 mls @ 50 mls/hr 04/01/23 22:30 Sod Chlor 0.9% 1000ml Bag IV 05/01/23 22:29 .Q20H DANITZA Metoclopramide HCl 5 mg 04/02/23 06:00 Metoclopramide Hcl 10mg/2ml Vial IVP 05/02/23 05:59 ACHS DANITZA Morphine Sulfate 2 mg 04/01/23 22:28 Morphine 2mg/Ml Syringe IV 05/01/23 22:27 Q2HP PRN Severe Pain (7-10) Pantoprazole Sodium 40 mg 04/02/23 09:00 Pantoprazole 40mg Tablet PO 05/02/23 08:59 DAILY DANITZA Promethazine HCl 25 mg 04/01/23 22:28 Promethazine Hcl 25mg/Ml 1ml Vial IV 05/01/23 22:27 Q6HP PRN Nausea And Vomiting Sodium Chloride 10 ml 04/01/23 18:01 04/01/23 18:02 Sodium Chloride 0.9% 10ml Syr (Rad Only) IV 05/01/23 18:00 10 ml NEEDED PRN Administration Maintain IV Site Sodium Chloride 25 ml 04/01/23 22:28 Sodium Chloride 0.9% 25ml Bag IV 04/01/23 22:29 ONCE ONE Discontinued Medications Generic Name Dose Route Start Last Admin Trade Name Freq PRN Reason Stop Dose Admin Lactated Ringer's 1,000 mls @ 999 mls/hr 04/01/23 17:15 04/01/23 19:23 Lactated Ringer's 1000 Ml Bag IV 04/01/23 18:15 999 mls/hr .Q1H1M ONE Administration Iopamidol 75 ml 04/01/23 18:01 04/01/23 18:02 Iopamidol-370 (76%);100ml Bottle IV 04/01/23 18:02 75 ml ONCE ONE Administration Ondansetron HCl 4 mg 04/01/23 19:15 04/01/23 19:24 Ondansetron 4mg/2ml Vial IV 04/01/23 19:16 4 mg ONCE ONE Administration Ondansetron HCl 4 mg 04/01/23 21:14 04/01/23 21:41 Ondansetron 4mg/2ml Vial IV 04/01/23 21:15 4 mg ONCE ONE Administration ORDERS Category Date Time Status CT abdomen pelvis w con Stat Cat Scan 04/01/23 17:14 Completed CXR --portable [XR chest portable] Stat Exams 04/01/23 17:14 Completed CBC w/Auto Diff [Complete Blood Count Auto Diff] Stat Lab 04/01/23 16:40 Completed CMP [Comprehensive Metabolic Panel] Stat Lab 04/01/23 16:40 Completed Complete Blood Count Auto Diff AMLAB Lab 04/02/23 06:00 Ordered Comprehensive Metabolic Panel AMLAB Lab 04/02/23 06:00 Ordered Lactic Acid Stat Lab 04/01/23 16:40 Completed Lipase Stat Lab 04/01/23 16:40 Completed Magnesium AMLAB Lab 04/02/23 06:00 Ordered Rapid PCR Covid and Flu A/B Stat Lab 04/01/23 19:15 Completed UA [Urinalysis and Microscopic] Stat Lab 04/01/23 22:00 Completed Medical Decision Narrative: 72-year-old female with 3 of CVA on aspirin and Plavix, see ED, hypertension, hyperal, type 2 diabetes, COPD not on home oxygen presenting with vomiting. Patient has been vomiting since earlier today. Had a medication change, unsure if it is associated with that. Vomiting is nonbloody, nonbilious. Patient is passing gas, does not remember last bowel movement. History was obtained via conversation with patient and family. On arrival, patient hemodynamically stable, alert, oriented x4, appropriate, GCS 15, moving all extremities spontaneously, pupils equal and reactive to light. Full physical exam performed and significant for chronically ill-appearing woman in no acute distress. At neurologic baseline. Abdomen is soft, nontender, nondistended. Lungs are clear to auscultation bilaterally. Patient does have bilateral lower extremity nonpitting edema. No evidence of rash. In no acute distress. Differential includes viral syndrome, constipation, bowel obstruction, medication side effect, among others. Patient was given Zofran, fluid bolus for symptomatic management and correction of underlying abnormalities. Workup independently interpreted and significant for leukocytosis of 11, normal kidney function nonactionable CMP. Lactate negative. Urinalysis with bacteria and trace leuk esterase on catheterized sample concerning for UTI. CT abdomen pelvis with significant constipation and stool burden, but no acute, actionable intra-abdominal pathology. See radiology read for full review of final results. Hospital medicine was contacted because patient actively retching, unable to tolerate any p.o. intake. Hospital medicine contacted and case discussed at length, patient to be admitted. Given patient presentation, workup, history, this most likely represents intractable nausea and vomiting as well as significant constipation. Because patient high risk for clinical decompensation, deemed appropriate for inpatient admission. Results were relayed to patient who voiced understanding and patient was agreeable to inpatient admission and management. Patient was admitted to the hospital for further definitive management. Critical Care Critical Care Time Critical Care Time: No
[2023-04-01 17:27] LABS: Basophils % 0.3 % (0.1-2.0); Hematocrit 43.1 % (37.0-47.0); Hemoglobin 14.1 g/dL (12.2-16.2); Mean Corpuscular HGB Conc 32.8 g/dL (31.8-35.4); Mean Corpuscular Hemoglobin 33.4 pg (27.0-31.2); Mean Corpuscular Volume 101.8 fl (81-99); Mean Platelet Volume 7.4 fl (7.4-10.4); Monocytes # 0.6 K/mm3 (0.1-1.0); Neutrophils # 9.7 K/mm3 (1.8-7.8); Neutrophils % 85.6 % (37.0-80.0); Platelet Count 414 K/mm3 (142-424); Red Blood Count 4.23 M/mm3 (4.20-5.40); Red Cell Distribution Width 14.3 % (11.5-17.5); White Blood Count 11.3 K/mm3 (4.8-10.8)
[2023-04-01 17:30] LABS: MANUAL DIFFERENTIAL MANUAL DIFFERENTIAL (MANUAL DIFF)
[2023-04-01 17:32] LABS: Chloride 100 mmol/L (98-107); Sodium 133 mmol/L (136-145)
[2023-04-01 17:33] LABS: Potassium 3.8 mmoL/L (3.5-5.1)
[2023-04-01 17:35] LABS: Alanine Aminotransferase 27 U/L (12-78); Alkaline Phosphatase 108 U/L (38-126); Anion Gap 8.8 mEq/L (5-15); Aspartate Amino Transferase 36 U/L (14-36); Bilirubin,Total 0.8 mg/dl (0.2-1.3); Blood Urea Nitrogen 14 mg/dl (7-17); Calcium 9.5 mg/dl (8.4-10.2); Carbon Dioxide 28 mmol/L (22.0-30.0); Creatinine Clearance Estimated 64 mL/min (50-200); Estimated Glomerular Filt Rate 98 ml/min (>60); GFR (African American) 118 ML/MIN (>60); Glucose 280 mg/dl (74-100); Lipase 47 U/L (23-300)
[2023-04-01 17:36] LABS: Albumin Level 4.2 g/dl (3.5-5.0); Albumin/Globulin Ratio 1.2 (1.1-1.8); Globulin 3.6 g/dL (1.3-3.2); Total Protein,Serum 7.8 g/dl (6.3-8.2)
[2023-04-01 17:52] LABS: Lymphocytes % 14 % (10-50); Macrocytosis 1+; Monocytes % 1 % (2-9); Neutrophils % 85 % (42-76); Platelet Estimate Normal; Total Cells Counted 100
--- NOTE | 2023-04-01 17:57 | PC.NURSE ---
PT TO CT
[2023-04-01] MEDS: SODIUM CHLORIDE 0.9% 10ML SYR (RAD ONLY) 10 ML IV (18:02)
[2023-04-01] MEDS: IOPAMIDOL-370 (76%);100ML BOTTLE 75 ML IV (18:02)
[2023-04-01] MEDS: LACTATED RINGERS 1000ML 1,000 ML 999 ML IV (19:23)
[2023-04-01] MEDS: ONDANSETRON 4MG/2ML VIAL 4 MG IV ×2 (19:24→21:41)
--- NOTE | 2023-04-01 19:30 | PC.NURSE ---
called lab spoke with kya, was told flu swab was there and he would catina as collected
--- NOTE | 2023-04-01 20:13 | PC.NURSE ---
CALLED LAB AND SPOKE WITH REID. STATES THEY DO HAVE THE FLU SWAB IN HER HAND, THAT SHE WILL RUN IT NOW.
[2023-04-01 20:16] LABS: Coronavirus 19, PCR Not Detected (NotDetected); Influenza A, PCR Not Detected (NotDetected); Influenza B, PCR Not Detected (NotDetected)
--- NOTE | 2023-04-01 21:54 | PC.NURSE ---
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
[2023-04-01 22:06] LABS: Microscopic, Urine URINE MICROSCOPIC (MICROSCOPIC)
[2023-04-01 22:12] LABS: Appearance,Urine CLOUDY (Clear); Bilirubin,Urine Negative (Negative); Blood, Urine 2+ (Negative); Color,Urine YELLOW (Yellow); Glucose,Urine (UA) 2+ (Negative); Ketones,Urine Negative (Negative); Leukocyte Esterase,Urine TRACE (Negative); Nitrate,Urine Negative (Negative); Protein,Urine 2+ (Negative); Urobilinogen,Urine 0.2 EU/dl (0.2)
--- NOTE | 2023-04-01 22:31 | P.HP_ITS ---
History of Present Illness *Admission Date: 04/01/23 *Reason for visit:: intractable n/v *History of present illness: This is a 72-year-old female with PMHx of CVA, hemiplegic, bed bound, many multiples comorbidities, on aspirin and Plavix, CAD, hypertension, PVD, type 2 diabetes, COPD not on home oxygen. Presenting to ED with vomiting. Patient has been vomiting since earlier today. Patient is a poor historian. History obtained form . Patient and daughter reported that she had a medication change, unsure if it is associated with that. On external medications records reviewed we are unable to find any new add. Vomiting is nonbloody, nonbilious. Patient is passing gas, they does not remember her last bowel movement. Admitted for treatment and management. [facility] Disclaimer: The information contained in this section may have been updated after the patient was seen, as this information can be updated by other users. Medical History (Updated 04/02/23 @ 04:13 by Wolfgang Muhammad APRN) Abnormal electrocardiography Bronchitis Callus of foot Chest pain Chest pain Chronic prescription opiate use Chronic, continuous use of opioids Coronary artery disease Declining functional status Decubitus skin ulcer Diabetic foot Dyspnea Gastroenteritis Gastroesophageal reflux disease Hemiplegia affecting right dominant side HTN (hypertension) Hypertensive urgency Left shoulder strain Neuropathy, cervical (radicular) Onychomycosis Pain due to onychomycosis of toenails of both feet Renal cyst, left Social History (Updated 04/01/23 @ 23:58 by Marcelina Richter RN) Smoking Status: Never smoker alcohol intake: former substance use type: denies use current occupational status: retired Travel in the last 8 weeks: Inside the [place] household members: spouse housing: other caffeine: No Review of Systems Review of Systems Review of systems:: unable to obtain Meds Home Medications and Allergies Home Medications Medication Instructions Recorded Confirmed Type polyethylene glycol 3350 17 17 g PO DAILY Constipation 10/25/21 04/02/23 History gram/dose oral powder (Miralax) alendronate 70 mg tablet 70 mg PO WEEKLY Osteoporosis 84 12/29/21 04/02/23 Rx days #12 tabs melatonin-pyridoxine HCl (vitamin 1 tab PO HS SLEEP 30 days #30 tabs 12/29/21 04/02/23 Rx B6) 5 mg-10 mg tablet clopidogrel 75 mg tablet (Plavix) 75 mg PO DAILY CAD #90 tabs 05/21/22 04/02/23 Rx carvedilol 25 mg tablet 25 mg PO BID Hypertension #180 tabs 01/04/23 04/02/23 Rx paroxetine HCl 20 mg tablet 60 mg PO HS MOOD 90 days #270 tabs 01/12/23 04/02/23 Rx baclofen 10 mg tablet 10 mg PO Q8H MUSCLE SPASM 02/09/23 04/02/23 History docusate sodium 250 mg capsule 250 mg PO BID Constipation 02/09/23 04/02/23 History (Stool Softener) hydroxyzine HCl 10 mg tablet 10 mg PO BID Anxiety 02/09/23 04/02/23 History metformin 1,000 mg tablet 1,000 mg PO BIDWMEAL Diabetes 02/09/23 04/02/23 History quetiapine 50 mg tablet 50 mg PO HS SLEEP 02/09/23 04/02/23 History alprazolam 0.25 mg tablet (Xanax) 0.25 mg PO BID Anxiety #14 tabs 03/31/23 04/02/23 Rx amlodipine 10 mg tablet 10 mg PO DAILY High Blood Pressure 04/02/23 04/02/23 History aspirin 81 mg tablet,delayed 81 mg PO DAILY Heart Disease 04/02/23 04/02/23 H istory release atogepant 60 mg tablet (Qulipta) 60 mg PO DAILY MIGRAINES 04/02/23 04/02/23 History atorvastatin 40 mg tablet 40 mg PO DAILY Cholesterol 04/02/23 04/02/23 History cariprazine 1.5 mg capsule 1.5 mg PO DAILY MOOD 04/02/23 04/02/23 History (Vraylar) cholecalciferol (vitamin D3) 1,250 1,250 mcg PO WEEKLY Supplement 04/02/23 04/02/23 History mcg (50,000 unit) capsule cyanocobalamin (vitamin B-12) 1,000 mcg IM WEEKLY Supplement 04/02/23 04/02/23 History 1,000 mcg/mL injection solution empagliflozin 25 mg tablet 25 mg PO DAILY Diabetes 04/02/23 04/02/23 History (Jardiance) gabapentin 600 mg tablet 600 mg PO TID NERVE PAIN 04/02/23 04/02/23 History insulin aspar prt-insulin aspart 12 unit SQ DAILY Diabetes 04/02/23 04/02/23 History 100 unit/mL (70-30) subcutaneous soln (Novolog Mix 70-30 U-100 Insuln) insulin glargine 100 32 unit SQ DAILY Diabetes 04/02/23 04/02/23 History unit-lixisenatide 33 mcg/mL subcutaneous pen (Soliqua 100/33) oxycodone-acetaminophen 10 mg-325 1 tab PO QIDP PRN Moderate Pain 04/02/23 04/02/23 History mg tablet (Scale Score 5-6) valsartan 320 1 tab PO DAILY High Blood Pressure 04/02/23 04/02/23 History mg-hydrochlorothiazide 12.5 mg tablet New Prescriptions to Start Prescriptions: Allergies Allergy/AdvReac Type Severity Reaction Status Date / Time cefuroxime [From CEFTIN] Allergy Mild Verified 03/31/23 10:17 Exam Data for Last 24 hours Vital signs and Labs for Last 24 Hours: Temp Pulse Resp BP Pulse Ox O2 Del Method 98.3 F 72 17 121/44 L 94 L Room Air 04/01/23 16:39 04/01/23 17:30 04/01/23 16:39 04/01/23 17:30 04/01/23 17:30 04/01/23 17:30 Laboratory Results - last 24 hr 04/01/23 16:40: WBC 11.3 H, RBC 4.23, Hgb 14.1, Hct 43.1, MCV 101.8 H, MCH 33.4 H, MCHC 32.8, RDW 14.3, Plt Count 414, MPV 7.4, Neut % (Auto) 85.6 H, Lymph % (Auto) 9.0 L, [place] % (Auto) 5.0, Eos % (Auto) 0.0 L, Baso % (Auto) 0.3, Neut # (Auto) 9.7 H, Lymph # (Auto) 1.0, [place] # (Auto) 0.6, Eos # (Auto) 0.0, Baso # (Auto) 0.0, Total Counted 100, Neutrophils % (Manual) 85 H, Lymphocytes % (Manual) 14, Monocytes % (Manual) 1 L, Platelet Estimate Normal, Macrocytosis 1+, Sodium 133 L, Potassium 3.8, Chloride 100, Carbon Dioxide 28, Anion Gap 8.8, BUN 14, Creatinine 0.60, Estimated Creat Clear 64, Estimated GFR 98, Est GFR ( Amer) 118, Glucose 280 H, Lactate 2.0, Calcium 9.5, Total Bilirubin 0.8, AST 36, ALT 27, Alkaline Phosphatase 108, Total Protein 7.8, Albumin 4.2, Globulin 3.6 H, Albumin/Globulin Ratio 1.2, Lipase 47 04/01/23 19:15: SARS-CoV-2 (PCR) Not detected, Influenza A Untype (PCR) Not detected, Influenza Type B (PCR) Not detected 04/01/23 22:00: Urine Color Yellow, Urine Appearance Cloudy, Urine pH 6.0, Ur Specific [place] 1.020, Urine Protein 2+, Urine Glucose (UA) 2+, Urine Ketones Negative, Urine Blood 2+, Urine Nitrate Negative, Urine Bilirubin Negative, Urine Urobilinogen 0.2, Ur Leukocyte Esterase Trace I & O for Last 24 hours: Intake & Output 03/29/23 03/30/23 03/31/23 04/01/23 23:59 23:59 23:59 23:59 Weight 81.647 kg Constitutional Constitutional: chronically ill appearing and cooperative *Routine HEENT Exam Head: Present normocephalic Eye: Present EOMI ENT: Present mucous membranes moist *Routine Neck Exam Neck: Present supple; Absent carotid bruit *Routine Respiratory Exam Respiratory: Present CTA bilaterally *Routine Cardiovascular Exam Cardiovascular: Present RRR *Routine Abdominal Exam Abdominal: Present soft *Routine Rectal Exam Rectal:: deferred *Routine Genitalia Exam Genitalia:: deferred *Routine Extremities Exam Extremities: Present extremity cold to touch; Absent cyanosis, pulses intact, normal capillary refill or calf tenderness *Routine Skin Exam Skin: Absent jaundice *Routine Neurological Exam Neurological: Present alert, motor deficit and hearing grossly intact; Absent moving all extremities, normal tone or normal speech H&P: Result Imaging and Cardiology EKG: Status: image reviewed by me and Preliminary report CT scan - abdomen: Status: image reviewed by me, Preliminary report and final report Assessment and Plan *Assessment and plan (1) Nausea & vomiting: Status: Acute Qualifiers: Vomiting type: unspecified Qualified Code(s): R11.2 - Nausea with vomiting, unspecified Category: Medical Code(s): R11.2 - Nausea with vomiting, unspecified (2) Constipated: Status: Acute Qualifiers: Constipation type: unspecified constipation type Qualified Code(s): K59.00 - Constipation, unspecified Category: Medical Code(s): K59.00 - Constipation, unspecified (3) UTI (urinary tract infection): Status: Acute Qualifiers: Hematuria presence: with hematuria Urinary tract infection type: site unspecified Qualified Code(s): N39.0 - Urinary tract infection, site not specified; R31.9 - Hematuria, unspecified Category: Medical Code(s): N39.0 - Urinary tract infection, site not specified (4) Coronary artery disease: Status: Chronic Qualifiers: Associated angina: unspecified whether angina present Coronary Disease- Associated Artery/Lesion type: unspecified vessel or lesion type [place] vs. 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 use Diabetes mellitus type: type 2 Qualified Code(s): E11.40 - Type 2 diabetes mellitus with diabetic neuropathy, unspecified; Z79.4 - [facility] (current) use of insulin Category: Medical Code(s): E11.40 - Type 2 diabetes mellitus with diabetic neuropathy, unspecified (7) COPD (chronic obstructive pulmonary disease) with chronic bronchitis: Status: Chronic Category: Medical Code(s): J44.9 - Chronic obstructive pulmonary disease, unspecified (8) CVA (cerebral vascular accident): Status: Acute Qualifiers: CVA mechanism: unspecified Qualified Code(s): I63.9 - Cerebral infarction, unspecified Category: Medical Code(s): I63.9 - Cerebral infarction, unspecified (9) Declining functional status: Status: Inactive Category: Medical Code(s): R53.81 - Other malaise Plan 72-year-old female with PMHx of CVA, with hemiplegic, bed bound, many multiples comorbidities, on aspirin and Plavix, CAD, hypertension, PVD, type 2 diabetes, COPD not on home oxygen. Presenting to ED with vomiting. On arrival patient alert and awake, AOx1. GCS14, hemodinamically stable, presented with persistent vomit and nauseas, and c/o with abd pain. Initial labs work showed, slightly elevated WBC, hyponatremic. CT of the abd conclusive for significant stool burden sat in the colon. UA was obtained concerning for UTI. Discussed with ER provider for admission. Plan as follow: -Intractable nausea and vomiting: - Constipation Condition to rule out: secondary to severe chronic constipation due to on chronic opioid medication Secondary to diabetes and gastroparesis Secondary to suspected UTI or gastroenteritis Admit patient for medical services Apparent continue aggressive bowel regimen. Docusate and MiraLAX daily Continue IV hydration. Monitor for sodium and other electrolytes imbalance Zofran x 2 given at the ER with not improvement. Will continue with Phenergan 25 mg IV push as needed Reglan 5 mg IV please 3 times daily Keep n.p.o. may advance diet as tolerated -Suspect UTI: UA obtained. Pending culture Started on Levaquin White count slightly elevated. Obtain daily CBC continue monitor Monitor for sepsis and acute organ failure Vital signs per unit per unit -Other chronic conditions: CAD, hypertension, diabetes on insulin, with neuropathy, COPD, anxiety, chronic opioid dependence Condition reviewed. Home medication reconciled On Accu-Chek and sliding scale Home Lantus Avoid opioid until constipation improves resume hypertensive regimen -History of CVA with hemiplegia, mostly bedbound, and physical deconditioning: PT OT consult for eval and treatment SCD for DVT prophylaxis. Patient on Plavix. On Protonix for GI protection Full code Rounded on patient after nurse practitioner. Personally examined and interviewed patient. Agree with exam findings and care plan as documented.
--- NOTE | 2023-04-01 22:33 | PC.NURSE ---
Admitting notified for OBS admission to [facility], Room 205
[2023-04-01 22:56] LABS: Bacteria,Urine 1+ /lpf
[2023-04-02] VITALS: BP 174/66; PULSE 83; RESP 20; TEMP 36.8; O2SAT 93
[2023-04-02] MEDS: 0.9 % SODIUM CHLORIDE 1000ML 1,000 ML 50 ML IV (01:17)
[2023-04-02] MEDS: ACETAMINOPHEN 325MG TAB 650 MG PO ×2 (01:37→09:57)
[2023-04-02] MEDS: PROMETHAZINE HCL 25MG/ML 1ML VIAL 25 MG IV ×2 (01:44→09:58)
[2023-04-02] MEDS: SODIUM CHLORIDE 0.9% 25ML BAG 25 ML IV ×2 (01:44→10:01)
[2023-04-02] MEDS: MORPHINE 2MG/ML SYRINGE 2 MG IV (03:55)
[2023-04-02 04:00] VITALS: BP 133/107; PULSE 84; RESP 20; TEMP 37; O2SAT 98; BMI 28.7
[2023-04-02] MEDS: METOCLOPRAMIDE HCL 10MG/2ML VIAL 5 MG IVP ×4 (05:34→21:05)
[2023-04-02] MEDS: LEVOFLOXACIN/D5W 250 MG/50 ML PIGGYBACK 100 MG IV (05:34)
[2023-04-02 06:00] LABS: POC Glucose,Bedside 271 (70-110)
[2023-04-02] MEDS: humaLOG 100 UNITS/ML 3ML VIAL (SSI) SQ ×4 (06:25→21:05)
[2023-04-02] MEDS: BACLOFEN 10MG TABLET 10 MG PO ×3 (06:25→20:08)
[2023-04-02 07:16] LABS: Basophils % 0.2 % (0.1-2.0); Chloride 95 mmol/L (98-107); Eosinophils % 0.1 % (0.1-12.0); Hematocrit 40.2 % (37.0-47.0); Hemoglobin 13.2 g/dL (12.2-16.2); Lymphocytes # 1.1 K/mm3 (0.7-4.5); Lymphocytes % 6.7 % (10-50); Mean Corpuscular HGB Conc 32.9 g/dL (31.8-35.4); Mean Corpuscular Hemoglobin 33.3 pg (27.0-31.2); Mean Corpuscular Volume 101.2 fl (81-99); Monocytes # 0.6 K/mm3 (0.1-1.0); Monocytes % 3.8 % (1.7-9.3); Neutrophils # 14.4 K/mm3 (1.8-7.8); Neutrophils % 89.3 % (37.0-80.0); Platelet Count 453 K/mm3 (142-424); Red Blood Count 3.97 M/mm3 (4.20-5.40); Red Cell Distribution Width 14.5 % (11.5-17.5); White Blood Count 16.2 K/mm3 (4.8-10.8)
[2023-04-02 07:17] LABS: Potassium 3.2 mmoL/L (3.5-5.1); Sodium 132 mmol/L (136-145)
[2023-04-02 07:19] LABS: Alanine Aminotransferase 26 U/L (12-78); Albumin Level 4.3 g/dl (3.5-5.0); Albumin/Globulin Ratio 1.2 (1.1-1.8); Alkaline Phosphatase 115 U/L (38-126); Anion Gap 12.2 mEq/L (5-15); Aspartate Amino Transferase 30 U/L (14-36); Bilirubin,Total 0.9 mg/dl (0.2-1.3); Blood Urea Nitrogen 13 mg/dl (7-17); Calcium 9.5 mg/dl (8.4-10.2); Carbon Dioxide 28 mmol/L (22.0-30.0); Creatinine Clearance Estimated 65 mL/min (50-200); Estimated Glomerular Filt Rate 98 ml/min (>60); GFR (African American) 118 ML/MIN (>60); Globulin 3.6 g/dL (1.3-3.2); Glucose 320 mg/dl (74-100); Total Protein,Serum 7.9 g/dl (6.3-8.2)
[2023-04-02 07:20] LABS: Magnesium 1.3 mg/dl (1.6-2.3)
[2023-04-02 07:53] LABS: MANUAL DIFFERENTIAL MANUAL DIFFERENTIAL (MANUAL DIFF)
[2023-04-02 08:00] VITALS: BP 95/64; PULSE 85; RESP 21; TEMP 36.9; O2SAT 97
--- NOTE | 2023-04-02 08:11 | P.PN_ITS ---
Subjective *Date: 04/02/23 *Time: 12:48 Interval history: Patient at her baseline level of function. feels she is doing better as she is getting perked up with IV fluids. Has had a good bowel movement and stomach feels better. No more nausea or vomiting. Would like to try liquid diet. Denies chest pain or shortness of breath. Medical Exam Vital signs and Labs for Last 24 Hours: Vital Signs Temp Pulse Pulse Resp BP BP Pulse Ox 04/02/23 06:32 04/02/23 05:00 04/02/23 03:00 04/02/23 04:00 98.6 F 84 20 133/107 H 98 04/02/23 01:00 04/01/23 23:00 04/02/23 00:00 98.2 F 83 20 174/66 H 93 L 04/01/23 23:01 174/66 H 04/01/23 22:07 85 187/73 H 97 04/01/23 20:30 82 150/66 H 97 04/01/23 20:02 83 159/103 H 97 04/01/23 19:52 78 156/69 H 95 04/01/23 22:38 97.9 F 74 16 127/82 04/01/23 17:30 72 121/44 L 94 L 04/01/23 16:39 98.3 F 75 17 149/80 H 95 O2 Del Method 04/02/23 06:32 Room Air 04/02/23 05:00 Room Air 04/02/23 03:00 Room Air 04/02/23 04:00 04/02/23 01:00 Room Air 04/01/23 23:00 Room Air 04/02/23 00:00 04/01/23 23:01 04/01/23 22:07 04/01/23 20:30 04/01/23 20:02 04/01/23 19:52 04/01/23 22:38 Room Air 04/01/23 17:30 Room Air 04/01/23 16:39 Room Air Intake and Output 04/01/23 04/02/23 04/02/23 23:59 07:59 15:59 Intake Total 100 / 100 350 / 350 Output Total 800 / 800 Balance 100 / -700 -450 / -450 Intake: Intake, Total IV Amount 100 / 100 350 / 350 0.9 % Sodium Chloride 1000ML 1, 300 / 300 000 ml @ 50 mls/hr IV .Q20H [facility] Rx#:[id number] Levofloxacin/D5w 250 mg In 50 50 / 50 ml @ 100 mls/hr IV Q24H [facility] Rx# :[id number] Output: Output, Urine Amount 800 / 800 Other: Number of Unmeasured Voids 1 Number of Bowel Movements 1 Weight 81.647 kg 83.098 kg Patient Weight 04/02/23 23:59 Weight 83.098 kg Laboratory Results - last 24 hr 04/01/23 16:40: WBC 11.3 H, RBC 4.23, Hgb 14.1, Hct 43.1, MCV 101.8 H, MCH 33.4 H, MCHC 32.8, RDW 14.3, Plt Count 414, MPV 7.4, Neut % (Auto) 85.6 H, Lymph % (Auto) 9.0 L, [place] % (Auto) 5.0, Eos % (Auto) 0.0 L, Baso % (Auto) 0.3, Neut # (Auto) 9.7 H, Lymph # (Auto) 1.0, Bureau # (Auto) 0.6, Eos # (Auto) 0.0, Baso # (Auto) 0.0, Total Counted 100, Neutrophils % (Manual) 85 H, Lymphocytes % (Manual) 14, Monocytes % (Manual) 1 L, Platelet Estimate Normal, Macrocytosis 1+, Sodium 133 L, Potassium 3.8, Chloride 100, Carbon Dioxide 28, Anion Gap 8.8, BUN 14, Creatinine 0.60, Estimated Creat Clear 64, Estimated GFR 98, Est GFR ( Amer) 118, Glucose 280 H, Lactate 2.0, Calcium 9.5, Total Bilirubin 0.8, AST 36, ALT 27, Alkaline Phosphatase 108, Total Protein 7.8, Albumin 4.2, Globulin 3.6 H, Albumin/Globulin Ratio 1.2, Lipase 47 04/01/23 19:15: SARS-CoV-2 (PCR) Not detected, Influenza A Untype (PCR) Not detected, Influenza Type B (PCR) Not detected 04/01/23 22:00: Urine Color Yellow, Urine Appearance Cloudy, Urine pH 6.0, Ur Specific [place] 1.020, Urine Protein 2+, Urine Glucose (UA) 2+, Urine Ketones Negative, Urine Blood 2+, Urine Nitrate Negative, Urine Bilirubin Negative, Urine Urobilinogen 0.2, Ur Leukocyte Esterase Trace, Urine RBC 3-5, Urine WBC 5- 10, Ur Squamous Epith Cells 5-10, Urine Bacteria 1+ 04/02/23 05:40: POC Glucose 271 H 04/02/23 06:42: WBC 16.2 H D, RBC 3.97 L, Hgb 13.2, Hct 40.2, MCV 101.2 H, MCH 33.3 H, MCHC 32.9, RDW 14.5, Plt Count 453 H, MPV 8.0, Neut % (Auto) 89.3 H, Lymph % (Auto) 6.7 L, [place] % (Auto) 3.8, Eos % (Auto) 0.1, Baso % (Auto) 0.2, Neut # (Auto) 14.4 H, Lymph # (Auto) 1.1, Bureau # (Auto) 0.6, Eos # (Auto) 0.0, Baso # (Auto) 0.0, Sodium 132 L, Potassium 3.2 L, Chloride 95 L, Carbon Dioxide 28, Anion Gap 12.2, BUN 13, Creatinine 0.60, Estimated Creat Clear 65, Estimated GFR 98, Est GFR ( Amer) 118, Glucose 320 H, Calcium 9.5, Magnesium 1.3 L, Total Bilirubin 0.9, AST 30, ALT 26, Alkaline Phosphatase 115, Total Protein 7.9, Albumin 4.3, Globulin 3.6 H, Albumin/Globulin Ratio 1.2 I & O for Labs for Last 24 Hours: Intake & Output 03/30/23 03/31/23 04/01/23 04/02/23 23:59 23:59 23:59 23:59 Intake Total 100 / 100 350 / 350 Output Total 800 / 800 Balance 100 / -700 -450 / -450 Weight 81.647 kg 83.098 kg Constitutional: Present no acute distress, average body habitus, chronically ill appearing and cooperative Head: Present atraumatic and normocephalic ENT: Present normal exam Comment:: Edentulous Neck: Present normal inspection Respiratory: Present normal respiratory effort; Absent rhonchi, wheezes or crackles Cardiac: Present Reg Rate and Rhythm GI: Present soft, tenderness (Nonfocal, no guarding or rebound) and normal bowel sounds; Absent distention Rectal (female): Present deferred Comment:: Sarcopenia, decreased range of motion, heel pads in place; contractures from neurologic injury Skin: Present intact; Absent erythema Neuro: Present Grossly Intact, alert, awake and moves all extremities Assessment and Plan *Assessment and plan (1) Nausea & vomiting: Status: Acute Qualifiers: Vomiting type: unspecified Qualified Code(s): R11.2 - Nausea with vomiting, unspecified Category: Medical Code(s): R11.2 - Nausea with vomiting, unspecified (2) Constipated: Status: Acute Qualifiers: Constipation type: unspecified constipation type Qualified Code(s): K59.00 - Constipation, unspecified Category: Medical Code(s): K59.00 - Constipation, unspecified (3) UTI (urinary tract infection): Status: Acute Qualifiers: Urinary tract infection type: site unspecified Hematuria presence: with hematuria Qualified Code(s): N39.0 - Urinary tract infection, site not specified; R31.9 - Hematuria, unspecified Category: Medical Code(s): N39.0 - Urinary tract infection, site not specified (4) Coronary artery disease: Status: Chronic Qualifiers: Coronary Disease-Associated Artery/Lesion type: unspecified vessel or lesion type [place] vs. transplanted heart: [place] heart Associated angina: unspecified whether angina present Qualified Code(s): I25.10 - Atherosclerotic heart disease of [place] coronary artery without angina pectoris Category: Medical Code(s): I25.10 - Atherosclerotic heart disease of [place] coronary artery without angina pectoris (5) HTN (hypertension): Status: Acute Qualifiers: Hypertension type: unspecified Qualified Code(s): I10 - Essential (primary) hypertension Category: Medical Code(s): I10 - Essential (primary) hypertension (6) Diabetes mellitus with diabetic neuropathy: Status: Chronic Qualifiers: Diabetes mellitus type: type 2 Diabetes mellitus skilled nursing insulin use: with skilled nursing use Qualified Code(s): E11.40 - Type 2 diabetes mellitus with diabetic neuropathy, unspecified; 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 Category: Medical Code(s): E11.40 - Type 2 diabetes mellitus with diabetic neuropathy, unspecified (7) COPD (chronic obstructive pulmonary disease) with chronic bronchitis: Status: Chronic Category: Medical Code(s): J44.9 - Chronic obstructive pulmonary disease, unspecified (8) CVA (cerebral vascular accident): Status: Acute Qualifiers: CVA mechanism: unspecified Qualified Code(s): I63.9 - Cerebral infarction, unspecified Category: Medical Code(s): I63.9 - Cerebral infarction, unspecified (9) Declining functional status: Status: Inactive Category: Medical Code(s): R53.81 - Other malaise Plan 72-year-old female with PMHx of CVA, with hemiplegic, bed bound, many multiples comorbidities, on aspirin and Plavix, CAD, hypertension, PVD, type 2 diabetes, COPD not on home oxygen. Presenting to ED with vomiting. On arrival patient alert and awake, AOx1. GCS14, hemodinamically stable, presented with persistent vomit and nauseas, and c/o with abd pain. Initial labs work showed, slightly elevated WBC, hyponatremic. CT of the abd conclusive for significant stool burden sat in the colon. UA was obtained concerning for UTI. Discussed with ER provider for admission. Patient showing some clinical improvement this morning. Continues to require inpatient management while awaiting cultures. Will advance diet today. Problems addressed as follows: -Intractable nausea and vomiting: Improving - Constipation Unclear etiology nausea or vomiting. Differential includes gastroparesis, constipation Continue bowel regimen with docusate senna 1 tab twice daily scheduled, MiraLAX every 6 hours, Reglan 5 mg IV ACHS for nausea, magnesium oxide 4 mg p.o. twice daily for repletion as well as bowel regimen Advance diet, discontinue IV fluids -Suspected UTI: UA obtained. Pending culture Continue Levaquin 750 mg daily White cell count increased to 16 today. No fever or worsening signs of infection however. Repeat CBC, CMP, magnesium ordered for the morning. Continue Xanax 0.25 mg twice daily for anxiety Continue amlodipine 10 mg daily, HCTZ 12.5 mg daily, irbesartan 300 mg daily, and carvedilol 25 mg twice daily for A-fib and hypertension Continue Plavix 75 mg daily for CAD Continue gabapentin 600 mg 3 times a day for neuropathy Continue lispro 7030 12 units twice daily with sliding scale insulin ACHS Continue pantoprazole 40 mg daily for GERD Continue Seroquel 50 mg nightly for sleep disorder -History of CVA with hemiplegia, mostly bedbound, and physical deconditioning: Complicate aspects of her care and risk for readmission, PT OT consult for eval and treatment Patient on Plavix. On Protonix for GI protection Full code Full liquid diet
[2023-04-02] MEDS: MAGNESIUM SULFATE IN WATER 2 GM/50 ML PIGGYBACK IV (09:58)
[2023-04-02] MEDS: CARVEDILOL 25MG TABLET 25 MG PO ×2 (09:58→21:03)
[2023-04-02] MEDS: AMLODIPINE 10MG TABLET 10 MG PO (09:59)
[2023-04-02] MEDS: CLOPIDOGREL 75MG TAB 75 MG PO (09:59)
[2023-04-02] MEDS: POTASSIUM CHLORIDE 20MEQ TAB 20 MEQ PO ×3 (09:59→21:04)
[2023-04-02] MEDS: ATORVASTATIN 40MG TABLET 40 MG PO (09:59)
[2023-04-02] MEDS: hydroCHLOROthiazide 12.5MG CAPSULE 12.5 MG PO (09:59)
[2023-04-02] MEDS: SENNOSIDES 8.6MG/DOCUSATE 50MG TABLET 1 TAB PO ×2 (09:59→21:03)
[2023-04-02] MEDS: IRBESARTAN 300MG TABLET 300 MG PO (09:59)
[2023-04-02] MEDS: PANTOPRAZOLE 40MG TABLET 40 MG PO (09:59)
[2023-04-02] MEDS: ENOXAPARIN 40MG/0.4ML SYRINGE 40 MG SQ (10:00)
[2023-04-02] MEDS: MAGNESIUM OXIDE 400MG TABLET 400 MG PO ×2 (10:00→21:03)
[2023-04-02] MEDS: POLYETHYLENE GLYCOL 3350 17 GM PACKET PO (10:00)
[2023-04-02] MEDS: GABAPENTIN 600MG TABLET 600 MG PO ×3 (10:05→21:04)
[2023-04-02] MEDS: ALPRAZolam 0.25MG TABLET 0.25 MG PO ×2 (10:05→21:03)
[2023-04-02 10:30] LABS: Lymphocytes % 11 % (10-50); Macrocytosis 1+; Monocytes % 3 % (2-9); Neutrophils % 86 % (42-76); Platelet Estimate Slight Increase; Total Cells Counted 100
--- NOTE | 2023-04-02 11:24 | HMH.PHAINT1 ---
Pharmacy Intervention Comments: MEDICATION RECONCILIATION COMPLETE USING LIST FROM MOST RECENT MD OFFICE VISIT, EXTERNAL PHARMACY FILL HISTORY AND JOI REPORT.
[2023-04-02 11:33] LABS: POC Glucose,Bedside 175 (70-110)
--- NOTE | 2023-04-02 13:30 | HMH.PTEV ---
Physical Therapy Evaluation Rehab PT IP Evaluation Start: 04/02/23 04:28 Freq: ONCE Status: Active Protocol: Document 04/02/23 13:21 PDESEROUX (Rec: 04/02/23 13:30 PDESEROUX [id number]) Subjective/History History History Pt. is a 72 year old female who presents to [facility] 2nd floor Inpatient w/ a PMH of CVA, R- side hemiplegic, bedbound, CAD , HTN, DM-II, PVD, COPD(not on home O2). Pt. vocalizes having s/s of constipation and stomach P! Tuesday night as secondary to admitting self to [facility]. Pt. reports feeling better regarding the stomach pain after being in the hospital. Pt.'s was bedside at the time of initial eval. date. Pt. reports living w/ spouse where she is current bed bound secondary to CVA in 2019. Pt. reports being dependent w/ transfers into/out of W/C to bed, and w/ bed mobility. Subjective Subjective Pt. was asleep in supine upon entry into room this date, pt. 's gave the okay to enter room, pt. agreeable to participate in Physical Therapy this date. Pt. reports increased soreness in the LUE shldr. New diagnosis of cancer in past 12 No months? Rehab PT IP Eval Objective Appearance Patient Behavior Appropriate,Cooperative, Fatigued,Wandering Patient Orientation Person,Place,Birthday Difficulty following instructions none Speech Pattern Difficulty Finding Words, Spontaneous Speech,Poor Articulation,Patient Baseline Ambulation Patient Able to Ambulate No Transfers Bed Transfer Ability Total/Dependent (100%) Pain Left Shoulder Pain Intensity 5 ROM All Extremities PT ROM Status ABN Abnormal ROM Comment R-sided>L-sided secondary to CVA MMT All Extremities PT MMT ABN Abnormal MMT Grade R-sided>L-sided secondary to CVA Rehab PT IP prob,goals,plan Problems Date of Evaluation: 04/02/23 PT IP Problems Bed Mobility,Transfers,Self care Rehab Potential Rehab Potential Fair Equipment Needs Assistive Devices Wheelchair Plan PT Intervention Plan Bed Mobility,Transfers, Therapeutic Exercise PT Plan Frequency BID Duration LOS Discharge Goals Bed Transfer Ability Total/Dependent (100%) Discharge Plan PT Discharge Plan Upon discharge from [facility], once medically stable per MD, pt. is approprate to return to home environment w/ assistance of spouse/family members w/ ADLs. Pt. also be appropriate for Home Health Physical Therapy to assist pt. and pt.' s caregiver in current ADLs and improve quality of life. Eval Complexity Eval Charge Codes 19390 - Low Complexity PHYSICIAN CERTIFICATION: I certify the specified therapy services for Yolanda Agosto are required, authorized, and reviewed every 30 days.
[2023-04-02 16:00] VITALS: BP 145/74; PULSE 65; RESP 15; TEMP 36.6; O2SAT 94
[2023-04-02 16:58] LABS: POC Glucose,Bedside 176 (70-110)
--- NOTE | 2023-04-02 17:49 | PC.NURSE ---
Patient confused, alert to self but not place or situation. VS stable and patient remained on room air. No bowl movement this shift, bowel sound normoactive.
[2023-04-02 20:09] VITALS: BP 167/79; PULSE 68; RESP 16; TEMP 37.1; O2SAT 92
[2023-04-02 20:20] LABS: POC Glucose,Bedside 192 (70-110)
[2023-04-02] MEDS: QUETIAPINE 25MG TABLET 50 MG PO (21:03)
[2023-04-02] MEDS: humaLOG MIX 75/25 3ML FLEXPEN 12 UNIT SQ (21:04)
[2023-04-02] MEDS: LEVOFLOXACIN/D5W 750 MG/150 ML 750 MG/150 ML PIGGYBACK 100 MG IV (22:51)
[2023-04-03] MEDS: POLYETHYLENE GLYCOL 3350 17 GM PACKET PO ×2 (00:55→06:32)
[2023-04-03 04:00] VITALS: BP 146/69; PULSE 67; RESP 20; TEMP 36.7; O2SAT 95; BMI 29.7
[2023-04-03] MEDS: BACLOFEN 10MG TABLET 10 MG PO (05:09)
[2023-04-03] MEDS: humaLOG 100 UNITS/ML 3ML VIAL (SSI) SQ (05:10)
[2023-04-03] MEDS: METOCLOPRAMIDE HCL 10MG/2ML VIAL 5 MG IVP (05:14)
[2023-04-03 05:31] LABS: POC Glucose,Bedside 196 (70-110)
--- NOTE | 2023-04-03 07:52 | EXP.DC.SUM ---
General Admission date:: 04/01/23 Discharge date: 04/03/23 HPI HPI HPI: This is a 72-year-old female with PMHx of CVA, hemiplegic, bed bound, many multiples comorbidities, on aspirin and Plavix, CAD, hypertension, PVD, type 2 diabetes, COPD not on home oxygen. Presenting to ED with vomiting. Patient has been vomiting since earlier today. Patient is a poor historian. History obtained form . Patient and daughter reported that she had a medication change, unsure if it is associated with that. On external medications records reviewed we are unable to find any new add. Vomiting is nonbloody, nonbilious. Patient is passing gas, they does not remember her last bowel movement. Admitted for treatment and management. Hospital Course Hospital Course Hospital Course: 72-year-old female with PMHx of CVA, with hemiplegic, bed bound, many multiples comorbidities, on aspirin and Plavix, CAD, hypertension, PVD, type 2 diabetes, COPD not on home oxygen. Presenting to ED with vomiting. On arrival patient alert and awake, AOx1. GCS14, hemodinamically stable, presented with persistent vomit and nauseas, and c/o with abd pain. Initial labs work showed, slightly elevated WBC, hyponatremic. CT of the abd conclusive for significant stool burden sat in the colon. UA was obtained concerning for UTI. Discussed with ER provider for admission. Patient showed clinical improvement with initiation of antibiotics and treatment of her severe constipation. Able to advance diet. Back to baseline. Has been comfortable taking her home to complete antibiotic treatment at home. Stable for discharge. Problems addressed as follows: -Intractable nausea and vomiting: Resolved - Constipation Unclear etiology of her nausea and vomiting. Differential includes gastroparesis, constipation, gastroenteritis. Imaging obtained showing severe stool burden. Constipation was treated with laxatives and enema. Had very large formed stool and felt better thereafter. Emesis resolved. Diet was advanced over the next 48 hours with good improvement and complete resolution of her nausea and vomiting. Recommend continuing bowel regimen at discharge to decrease risk for recurrence. Also supplementing with magnesium oxide for hypomagnesemia and to promote appropriate bowel function. -Suspected UTI: UA obtained and grossly abnormal. Culture obtained with multiple pathogens. Was initiated on levofloxacin. Will complete empiric course with 750 mg daily. White cell count initially elevated, improved during admission. No fever or other signs of infection during admission. Continue Xanax 0.25 mg twice daily for anxiety Continue amlodipine 10 mg daily, HCTZ 12.5 mg daily, irbesartan 300 mg daily, and carvedilol 25 mg twice daily for A-fib and hypertension Continue Plavix 75 mg daily for CAD Continue gabapentin 600 mg 3 times a day for neuropathy Continue lispro 7030 12 units twice daily with sliding scale insulin ACHS Continue pantoprazole 40 mg daily for GERD Continue Seroquel 50 mg nightly for sleep disorder -History of CVA with hemiplegia, mostly bedbound, and physical deconditioning: Complicate aspects of her care and risk for readmission, PT OT consulted and assisted with care during admission. Home health was consulted at discharge as her is her caregiver and they could benefit from therapy, jail, further assistance. Spent 30 minutes in discharge counseling, documentation, chart review, and direct care with patient. Exam Data for Last 24 hours Vital signs and Labs for Last 24 Hours: Temp Pulse Resp BP Pulse Ox O2 Del Method 98.0 F 67 20 146/69 H 95 Room Air 04/03/23 04:00 04/03/23 04:00 04/03/23 04:00 04/03/23 04:00 04/03/23 04:00 04/03/23 06:13 Laboratory Results - last 24 hr 04/02/23 06:42: WBC 16.2 H D, RBC 3.97 L, Hgb 13.2, Hct 40.2, MCV 101.2 H, MCH 33.3 H, MCHC 32.9, RDW 14.5, Plt Count 453 H, MPV 8.0, Neut % (Auto) 89.3 H, Lymph % (Auto) 6.7 L, [place] % (Auto) 3.8, Eos % (Auto) 0.1, Baso % (Auto) 0.2, Neut # (Auto) 14.4 H, Lymph # (Auto) 1.1, [place] # (Auto) 0.6, Eos # (Auto) 0.0, Baso # (Auto) 0.0, Total Counted 100, Neutrophils % (Manual) 86 H, Lymphocytes % (Manual) 11, Monocytes % (Manual) 3, Platelet Estimate Slight increase, Macrocytosis 1+ 04/02/23 11:21: POC Glucose 175 H 04/02/23 16:16: POC Glucose 176 H 04/02/23 19:58: POC Glucose 192 H 04/03/23 05:10: POC Glucose 196 H I & O for Last 24 hours: Intake & Output 03/31/23 04/01/23 04/02/23 04/03/23 23:59 23:59 23:59 23:59 Intake Total 100 / 100 1340 / 1340 Output Total 800 / 800 400 / 400 Balance 100 / -700 540 / 540 -400 / -400 Weight 81.647 kg 83.098 kg 85.842 kg Constitutional Constitutional: no acute distress, average body habitus, chronically ill appearing and cooperative *Routine HEENT Exam Head: Present normocephalic Eye: Present EOMI and PERRL ENT: Present mucous membranes moist Comments: edentulous *Routine Neck Exam Neck: Present supple; Absent lymphadenopathy *Routine Respiratory Exam Respiratory: Present CTA bilaterally; Absent rhonchi, wheezes or crackles *Routine Cardiovascular Exam Cardiovascular: Present RRR *Routine Abdominal Exam Abdominal: Present soft and normoactive bowel sounds; Absent tenderness or distended *Routine Rectal Exam Patient deferred: visual exam *Routine Exam Patient deferred: external exam *Routine Extremities Exam Extremities: Absent cyanosis, clubbing or edema Comments: sarcopenia, contractures *Routine Skin Exam Skin: Present warm; Absent rash *Routine Neurological Exam Neurological: Present alert and oriented X3; Absent altered mental status Comments: residual deficits of previous CVA, Bedbound, minimal movement in legs Results Data Completed and Pending Labs on day of discharge: Labs from last 24 hours 04/03/23 04/02/23 04/02/23 05:10 19:58 16:16 WBC RBC Hgb Hct MCV MCH MCHC RDW Plt Count MPV Neut % (Auto) Lymph % (Auto) [place] % (Auto) Eos % (Auto) Baso % (Auto) Neut # (Auto) Lymph # (Auto) [place] # (Auto) Eos # (Auto) Baso # (Auto) Total Counted Neutrophils % (Manual) Lymphocytes % (Manual) Monocytes % (Manual) Platelet Estimate Macrocytosis POC Glucose 196 H 192 H 176 H 04/02/23 04/02/23 11:21 06:42 WBC 16.2 H D RBC 3.97 L Hgb 13.2 Hct 40.2 MCV 101.2 H MCH 33.3 H MCHC 32.9 RDW 14.5 Plt Count 453 H MPV 8.0 Neut % (Auto) 89.3 H Lymph % (Auto) 6.7 L Converse % (Auto) 3.8 Eos % (Auto) 0.1 Baso % (Auto) 0.2 Neut # (Auto) 14.4 H Lymph # (Auto) 1.1 Converse # (Auto) 0.6 Eos # (Auto) 0.0 Baso # (Auto) 0.0 Total Counted 100 Neutrophils % (Manual) 86 H Lymphocytes % (Manual) 11 Monocytes % (Manual) 3 Platelet Estimate Slight increase Macrocytosis 1+ POC Glucose 175 H DS: Diagnosis Discharge Diagnosis (1) Nausea & vomiting: Status: Resolved Code(s): R11.2 - Nausea with vomiting, unspecified Qualifiers: Vomiting type: unspecified Qualified Code(s): R11.2 - Nausea with vomiting, unspecified (2) Constipated: Status: Resolved Code(s): K59.00 - Constipation, unspecified Qualifiers: Constipation type: unspecified constipation type Qualified Code(s): K59.00 - Constipation, unspecified (3) UTI (urinary tract infection): Status: Acute Code(s): N39.0 - Urinary tract infection, site not specified Qualifiers: Hematuria presence: with hematuria Urinary tract infection type: site unspecified Qualified Code(s): N39.0 - Urinary tract infection, site not specified; R31.9 - Hematuria, unspecified (4) Coronary artery disease: Status: Chronic Code(s): I25.10 - Atherosclerotic heart disease of [place] coronary artery without angina pectoris Qualifiers: Associated angina: unspecified whether angina present Coronary Disease-Associated Artery/Lesion type: unspecified vessel or lesion type [place] vs. transplanted heart: [place] heart Qualified Code(s): I25.10 - Atherosclerotic heart disease of [place] coronary artery without angina pectoris (5) HTN (hypertension): Status: Acute Code(s): I10 - Essential (primary) hypertension Qualifiers: Hypertension type: unspecified Qualified Code(s): I10 - Essential (primary) hypertension (6) Diabetes mellitus with diabetic neuropathy: Status: Chronic Code(s): E11.40 - Type 2 diabetes mellitus with diabetic neuropathy, unspecified Qualifiers: Diabetes mellitus watermaster insulin use: with fci use Diabetes mellitus type: type 2 Qualified Code(s): E11.40 - Type 2 diabetes mellitus with diabetic neuropathy, unspecified; Z79.4 - termination clerk (current) use of insulin (7) COPD (chronic obstructive pulmonary disease) with chronic bronchitis: Status: Chronic Code(s): J44.9 - Chronic obstructive pulmonary disease, unspecified (8) CVA (cerebral vascular accident): Status: Acute Code(s): I63.9 - Cerebral infarction, unspecified Qualifiers: CVA mechanism: unspecified Qualified Code(s): I63.9 - Cerebral infarction, unspecified (9) Declining functional status: Status: Inactive Code(s): R53.81 - Other malaise Meds Home Medications and Allergies Home Medications Medication Instructions Recorded Confirmed Type polyethylene glycol 3350 17 17 g PO DAILY Constipation 10/25/21 04/02/23 History gram/dose oral powder (Miralax) alendronate 70 mg tablet 70 mg PO WEEKLY Osteoporosis 84 12/29/21 04/02/23 Rx days #12 tabs melatonin-pyridoxine HCl (vitamin 1 tab PO HS SLEEP 30 days #30 tabs 12/29/21 04/02/23 Rx B6) 5 mg-10 mg tablet clopidogrel 75 mg tablet (Plavix) 75 mg PO DAILY CAD #90 tabs 05/21/22 04/02/23 Rx carvedilol 25 mg tablet 25 mg PO BID Hypertension #180 tabs 01/04/23 04/02/23 Rx paroxetine HCl 20 mg tablet 60 mg PO HS MOOD 90 days #270 tabs 01/12/23 04/02/23 Rx baclofen 10 mg tablet 10 mg PO Q8H MUSCLE SPASM 02/09/23 04/02/23 History docusate sodium 250 mg capsule 250 mg PO BID Constipation 02/09/23 04/02/23 History (Stool Softener) hydroxyzine HCl 10 mg tablet 10 mg PO BID Anxiety 02/09/23 04/02/23 History metformin 1,000 mg tablet 1,000 mg PO BIDWMEAL Diabetes 02/09/23 04/02/23 History quetiapine 50 mg tablet 50 mg PO HS SLEEP 02/09/23 04/02/23 History alprazolam 0.25 mg tablet (Xanax) 0.25 mg PO BID Anxiety #14 tabs 03/31/23 04/02/23 Rx amlodipine 10 mg tablet 10 mg PO DAILY High Blood Pressure 04/02/23 04/02/23 History aspirin 81 mg tablet,delayed 81 mg PO DAILY Heart Disease 04/02/23 04/02/23 History release atogepant 60 mg tablet (Qulipta) 60 mg PO DAILY MIGRAINES 04/02/23 04/02/23 History atorvastatin 40 mg tablet 40 mg PO DAILY Cholesterol 04/02/23 04/02/23 History cariprazine 1.5 mg capsule 1.5 mg PO DAILY MOOD 04/02/23 04/02/23 History (Vraylar) cholecalciferol (vitamin D3) 1,250 1,250 mcg PO WEEKLY Supplement 04/02/23 04/02/23 History mcg (50,000 unit) capsule cyanocobalamin (vitamin B-12) 1,000 mcg IM WEEKLY Supplement 04/02/23 04/02/23 History 1,000 mcg/mL injection solution empagliflozin 25 mg tablet 25 mg PO DAILY Diabetes 04/02/23 04/02/23 History (Jardiance) gabapentin 600 mg tablet 600 mg PO TID NERVE PAIN 04/02/23 04/02/23 History insulin aspar prt-insulin aspart 12 unit SQ DAILY Diabetes 04/02/23 04/02/23 History 100 unit/mL (70-30) subcutaneous soln (Novolog Mix 70-30 U-100 Insuln) insulin glargine 100 32 unit SQ DAILY Diabetes 04/02/23 04/02/23 History unit-lixisenatide 33 mcg/mL subcutaneous pen (Soliqua 100/33) oxycodone-acetaminophen 10 mg-325 1 tab PO QIDP PRN Moderate Pain 04/02/23 04/02/23 History mg tablet (Scale Score 5-6) valsartan 320 1 tab PO DAILY High Blood Pressure 04/02/23 04/02/23 History mg-hydrochlorothiazide 12.5 mg tablet levofloxacin 750 mg tablet 750 mg PO DAILY 4 days #4 tabs 04/03/23 Rx New Prescriptions to Start Prescriptions: levofloxacin Santhosh Robertson Allergies Allergy/AdvReac Type Severity Reaction Status Date / Time cefuroxime [From CEFTIN] Allergy Mild Verified 03/31/23 10:17 Discharge Plan Disposition Patient Disposition: Home Health Service Condition: Fair Discharge Order Discharge Orders: Discharge Order (Routine); Ordered 04/03/23 Ordered By: Santhosh Robertson Follow up Plan Follow up with: Kb Hernández DO [Primary Care Provider] - Enter time for follow up Prescriptions/Medication Reconciliation: New levofloxacin 750 mg tablet 750 mg PO DAILY 4 Days Qty: 4 0RF Continued alendronate 70 mg tablet 70 mg PO WEEKLY 84 Days Qty: 12 0RF melatonin-pyridoxine HCl (B6) 5-10 mg tablet 1 tab PO HS 30 Days Qty: 30 0RF docusate sodium [Stool Softener] 250 mg capsule 250 mg PO BID hydroxyzine HCl 10 mg tablet 10 mg PO BID baclofen 10 mg tablet 10 mg PO Q8H metformin 1,000 mg tablet 1,000 mg PO BIDWMEAL Hold Instructions: Resume on 03/13/22. hold for two days quetiapine 50 mg tablet 50 mg PO HS alprazolam [Xanax] 0.25 mg tablet 0.25 mg PO BID Qty: 14 0RF clopidogrel [Plavix] 75 mg tablet 75 mg PO DAILY Qty: 90 3RF carvedilol 25 mg tablet 25 mg PO BID Qty: 180 3RF paroxetine HCl 20 mg tablet 60 mg PO HS 90 Days Qty: 270 3RF polyethylene glycol 3350 [Miralax] 17 gram/dose powder 17 g PO DAILY atorvastatin 40 mg tablet 40 mg PO DAILY aspirin 81 mg Tablet,Delayed Release (Dr/Ec) 81 mg PO DAILY amlodipine 10 mg tablet 10 mg PO DAILY gabapentin 600 mg tablet 600 mg PO TID oxycodone-acetaminophen 10-325 mg tablet 1 tab PO QIDP PRN (Reason: Moderate Pain (Scale Score 5-6)) insulin asp prt-insulin aspart [Novolog Mix 70-30 U-100 Insuln] 100 unit/mL (70-30) solution 12 unit SQ DAILY valsartan-hydrochlorothiazide 320-12.5 mg tablet 1 tab PO DAILY cyanocobalamin (vitamin B-12) 1,000 mcg/mL solution 1,000 mcg IM WEEKLY cholecalciferol (vitamin D3) 1,250 mcg (50,000 unit) capsule 1,250 mcg PO WEEKLY Jardiance 25 mg tablet 25 mg PO DAILY Soliqua 100/33 100 unit-33 mcg/mL insulin pen 32 unit SQ DAILY Qulipta 60 mg tablet 60 mg PO DAILY Vraylar 1.5 mg Capsule 1.5 mg PO DAILY Problem Reconciliation Problems Reviewed?: Yes Patient Discharge Instructions ACTIVITY: Continue current activity DIET: continue same diet Patient Instructions: DI for Constipation, Nausea and Vomiting-Adult Providers Primary Care Provider: Kb Hernández Admit Provider: Santhosh Robertson Attending Provider: Santhosh Robertson
[2023-04-03 08:00] VITALS: BP 148/72; PULSE 69; RESP 17; TEMP 36.8; O2SAT 96
[2023-04-03] MEDS: AMLODIPINE 10MG TABLET 10 MG PO (08:13)
[2023-04-03] MEDS: GABAPENTIN 600MG TABLET 600 MG PO (08:14)
[2023-04-03] MEDS: CLOPIDOGREL 75MG TAB 75 MG PO (08:14)
[2023-04-03] MEDS: ENOXAPARIN 40MG/0.4ML SYRINGE 40 MG SQ (08:14)
[2023-04-03] MEDS: hydroCHLOROthiazide 12.5MG CAPSULE 12.5 MG PO (08:14)
[2023-04-03] MEDS: CARVEDILOL 25MG TABLET 25 MG PO (08:14)
[2023-04-03] MEDS: humaLOG MIX 75/25 3ML FLEXPEN 12 UNIT SQ (08:14)
[2023-04-03] MEDS: ATORVASTATIN 40MG TABLET 40 MG PO (08:14)
[2023-04-03] MEDS: MAGNESIUM OXIDE 400MG TABLET 400 MG PO (08:15)
[2023-04-03] MEDS: PANTOPRAZOLE 40MG TABLET 40 MG PO (08:15)
[2023-04-03] MEDS: IRBESARTAN 300MG TABLET 300 MG PO (08:15)
[2023-04-03] MEDS: POTASSIUM CHLORIDE 20MEQ TAB 20 MEQ PO (08:15)
[2023-04-03] MEDS: SENNOSIDES 8.6MG/DOCUSATE 50MG TABLET 1 TAB PO (08:16)
[2023-04-03] MEDS: ALPRAZolam 0.25MG TABLET 0.25 MG PO (08:20)
[2023-04-03 10:15] LABS: Basophils % 0.3 % (0.1-2.0); Eosinophils # 0.1 K/mm3 (0.0-0.4); Eosinophils % 0.5 % (0.1-12.0); Hematocrit 32.7 % (37.0-47.0); Hemoglobin 13.1 g/dL (12.2-16.2); Lymphocytes # 1.4 K/mm3 (0.7-4.5); Lymphocytes % 12.7 % (10-50); Mean Platelet Volume 7.9 fl (7.4-10.4); Monocytes # 0.7 K/mm3 (0.1-1.0); Monocytes % 6.7 % (1.7-9.3); Neutrophils # 8.7 K/mm3 (1.8-7.8); Neutrophils % 79.8 % (37.0-80.0); Platelet Count 317 K/mm3 (142-424); Red Blood Count 3.21 M/mm3 (4.20-5.40); Red Cell Distribution Width 14.5 % (11.5-17.5); White Blood Count 10.9 K/mm3 (4.8-10.8)
[2023-04-03 10:19] LABS: Chloride 98 mmol/L (98-107); Potassium 3.3 mmoL/L (3.5-5.1); Sodium 131 mmol/L (136-145)
[2023-04-03 10:22] LABS: Alanine Aminotransferase 22 U/L (12-78); Albumin Level 3.8 g/dl (3.5-5.0); Albumin/Globulin Ratio 1.3 (1.1-1.8); Alkaline Phosphatase 95 U/L (38-126); Anion Gap 8.3 mEq/L (5-15); Aspartate Amino Transferase 29 U/L (14-36); Bilirubin,Total 0.6 mg/dl (0.2-1.3); Blood Urea Nitrogen 14 mg/dl (7-17); Calcium 8.6 mg/dl (8.4-10.2); Carbon Dioxide 28 mmol/L (22.0-30.0); Creatinine Clearance Estimated 67 mL/min (50-200); Estimated Glomerular Filt Rate 98 ml/min (>60); GFR (African American) 118 ML/MIN (>60); Glucose 247 mg/dl (74-100); Total Protein,Serum 6.8 g/dl (6.3-8.2)
[2023-04-03 10:23] LABS: Magnesium 1.8 mg/dl (1.6-2.3); Mean Corpuscular HGB Conc 40.2 g/dL (31.8-35.4); Mean Corpuscular Hemoglobin 40.9 pg (27.0-31.2)
--- NOTE | 2023-04-03 11:15 | PC.NURSE ---
pt hasbeen discahrged. awaiting a ride
--- NOTE | 2023-04-04 10:09 | SW/DCPLANNER ---
Addendum entered by Alma Wright 04/04/23 13:26: Roselia fisher/ [facility] stated that services will begin tomorrow for this patient. Original Note: Patient information/order has been faxed to [facility].
--- NOTE | 2023-04-05 15:25 | CARE MANAGER ---
Unable to reach patient to discuss recent discharge. Call attempted x 2 and VM message was left.
== END 2023-04-03 13:51 | disposition home health service (06) ==
LOC: ER 19:27 → 2ND 23:51
PROVIDERS: Nurse Practitioner Family; Admitting Provider Internal Medicine Adolescent Medicine; Emergency Provider Emergency Medicine; PCP Internal Medicine; Visit Provider Internal Medicine Adolescent Medicine
DX: R11.2 Nausea with vomiting, unspecified (principal); K59.00 Constipation, unspecified; R31.9 Hematuria, unspecified; I25.10 Atherosclerotic heart disease of native coronary artery without angina pectoris; I10 Essential (primary) hypertension; E11.40 Type 2 diabetes mellitus with diabetic neuropathy, unspecified; Z79.4 Long term (current) use of insulin; J44.9 Chronic obstructive pulmonary disease, unspecified; R53.81 Other malaise; Z99.81 Dependence on supplemental oxygen; E11.9 Type 2 diabetes mellitus without complications; Z74.01 Bed confinement status; I69.359 Hemiplegia and hemiparesis following cerebral infarction affecting unspecified side
CPT/HCPCS: 36415; 71045; 74177; 80053; 81001; 82962; 83605; 83690; 83735; 85007; 85025; 87636; 97161; G0378; J1956; J2405; J3475; Q9967

== ENCOUNTER 2023-05-17 13:51 | Outpatient (CLI) | payer MEDICARE, SELFPAY ==
--- NOTE | 2023-05-17 13:52 | CA_ITS ---
FINAL REPORT CLINICAL HISTORY: PAD with previous Rt le arterial stent CVA with leg contracture/immobility, No pulses palpated by Primary physician FINDINGS: BILATERAL LOWER EXTREMITY DUPLEX DOPPLER Color Doppler and duplex Doppler of the bilateral lower extremity was performed. Spectral analysis was also performed. Velocities were measured at multiple levels. All velocities are in centimeters per second. 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 There is occlusion of the right SFA. There are low amplitude monophasic waveforms in the right popliteal and tibial vessels. LEFT LUG LOADER: 80 SFA Prox: 44 SFA Distal: 18 Pop: 42 LOY: 60 Dorsalis Pedis: 14 Attenuated monophasic waveforms are likely related to significant inflow stenosis. There is absent flow in the left profunda and left anterior tibial arteries. IMPRESSION: Significant bilateral occlusive peripheral arterial disease as above. Reviewed, Interpreted and Dictated by Corwin Peña MD Transcribed by Estrellita Guzman Authenticated and [facility]
== END 2023-05-17 23:59 ==
LOC: RT 13:52
PROVIDERS: PCP Internal Medicine; Visit Provider Internal Medicine
DX: I73.9 Peripheral vascular disease, unspecified (principal)
CPT/HCPCS: 93925

== ENCOUNTER 2023-08-08 09:30 | Outpatient (CLI) | payer MEDICARE, SELFPAY ==
[2023-08-08 10:06] LABS: Blood Urea Nitrogen 16 mg/dl (7-17); Estimated Glomerular Filt Rate 61 ml/min (>60); GFR (African American) 74 ML/MIN (>60)
== END 2023-08-08 23:59 | disposition home or self-care (01) ==
LOC: RAD 09:31
PROVIDERS: PCP Internal Medicine; Visit Provider Surgery
DX: E78.00 Pure hypercholesterolemia, unspecified (principal); Z79.899 Other long term (current) drug therapy; E11.40 Type 2 diabetes mellitus with diabetic neuropathy, unspecified
CPT/HCPCS: 36415; 82565; 84520

== ENCOUNTER 2023-09-05 14:12 | Outpatient (CLI) | payer MEDICARE, SELFPAY ==
--- NOTE | 2023-09-05 14:16 | XR_ITS ---
FINAL REPORT CLINICAL HISTORY: foot pain FINDINGS: AP, oblique and lateral views of the right foot were obtained. There is no prior exam for comparison. The bones are osteopenic which limits evaluation for fracture. There is hallux valgus deformity. There is multi joint degenerative disease. IMPRESSION: Osteopenia and multi joint degenerative disease. Reviewed, Interpreted and Dictated by Odette Mendoza MD Transcribed by Sarai Rodríguez Authenticated and . [facility]
--- NOTE | 2023-09-05 14:16 | XR_ITS ---
FINAL REPORT CLINICAL HISTORY: foot pain FINDINGS: AP, oblique and lateral views of the left foot were obtained. There is no prior exam for comparison. Severe osteopenia limits evaluation for fracture. There is dislocation at the 4th PIP joint, likely chronic. There is multi joint degenerative disease. IMPRESSION: Severe osteopenia and multi joint degenerative disease. Reviewed, Interpreted and Dictated by Odette Mendoza MD Transcribed by Sarai Rodríguez Authenticated and [facility]
== END 2023-09-05 23:59 | disposition home or self-care (01) ==
LOC: RAD 14:14
PROVIDERS: PCP Internal Medicine; Visit Provider Podiatrist
DX: M79.671 Pain in right foot (principal); M79.672 Pain in left foot
CPT/HCPCS: 73630

== ENCOUNTER 2023-09-15 13:50 | Outpatient (CLI) | payer MEDICARE, SELFPAY ==
--- NOTE | 2023-09-15 13:59 | CT_ITS ---
FINAL REPORT TECHNIQUE: Thin section axial CT images with coronal and sagittal reformats were performed. 3D reconstructed images were obtained and reviewed. This study was performed with techniques to keep radiation doses as low as reasonably achievable (ALARA). Individualized dose reduction techniques using automated exposure control or adjustment of mA and/or kV according to the patient''s size were employed. CLINICAL HISTORY: severe PAD FINDINGS: There are post arthroplasty changes of the right knee. Severe osteopenia is identified. There is no fracture or bone destruction. There is nonspecific subcutaneous edema. No localized fluid collection is identified. There is moderate calcified plaque disease in the proximal tibial vessels. IMPRESSION: No abscess or obvious change of osteomyelitis. Reviewed, Interpreted and Dictated by Willie Merritt MD Transcribed by Sarai Rodríguez Authenticated and [facility]
== END 2023-09-15 23:59 | disposition home or self-care (01) ==
LOC: RAD 13:51
PROVIDERS: PCP Nurse Practitioner Family; Visit Provider Nurse Practitioner Family
DX: I73.9 Peripheral vascular disease, unspecified (principal)
CPT/HCPCS: 73700

== ENCOUNTER 2023-09-30 16:25 | Emergency (ER) | payer MEDICARE, SELFPAY ==
[2023-09-30 16:51] VITALS: BP 179/98; PULSE 81; RESP 16; TEMP 36.7; O2SAT 94; BMI 29.2
--- NOTE | 2023-09-30 17:08 | EXP.UTC ---
Discharge Plan Disposition Patient Disposition: Home, Self-Care Condition: Good Prescriptions Prescriptions: New benzonatate 100 mg capsule 100 mg PO TIDP PRN (Reason: Cough) Qty: 30 0RF levofloxacin 500 mg tablet 500 mg PO DAILY Qty: 7 0RF ondansetron 4 mg Tablet,Disintegrating 4 mg PO Q8H PRN (Reason: Nausea) Qty: 8 0RF No Action alendronate 70 mg tablet 70 mg PO WEEKLY 84 Days Qty: 12 0RF melatonin-pyridoxine HCl (B6) 5-10 mg tablet 1 tab PO HS 30 Days Qty: 30 0RF docusate sodium [Stool Softener] 250 mg capsule 250 mg PO BID hydroxyzine HCl 10 mg tablet 10 mg PO BID baclofen 10 mg tablet 10 mg PO Q8H metformin 1,000 mg tablet 1,000 mg PO BIDWMEAL quetiapine 50 mg tablet 50 mg PO HS morphine 15 mg tablet extended release PO Movantik 25 mg tablet PO nicotine 21 mg/24 hr patch 24 hour 1 patch transdermal DAILY Qty: 28 0RF carvedilol 25 mg tablet 25 mg PO BID Qty: 180 3RF (DME) Accu-Chek Guide test strips Strip See Rx Instructions .Route Qty: 100 11RF Rx Instructions: Check fsbs once daily and as needed paroxetine HCl 20 mg tablet 60 mg PO HS 90 Days Qty: 270 3RF valsartan-hydrochlorothiazide 320-12.5 mg tablet 1 tab PO DAILY Qty: 90 1RF prochlorperazine maleate 5 mg tablet 5 mg PO TID PRN (Reason: anxiety or nausea) Qty: 60 3RF cholecalciferol (vitamin D3) 1,250 mcg (50,000 unit) capsule 1,250 mcg PO WEEKLY Qty: 12 1RF gabapentin 600 mg tablet 600 mg PO TID Qty: 90 1RF ondansetron 4 mg tablet,disintegrating 4 mg PO DAILY Qty: 30 2RF clopidogrel 75 mg tablet See Rx Instructions .ROUTE .COMPLEX Qty: 90 3RF Dose Instruction: TAKE 1 TABLET EVERY DAY FOR CAD. NEEDS APPOINTMENT FOR FURTHER REFILLS. Rx Instructions: TAKE 1 TABLET EVERY DAY FOR CAD. NEEDS APPOINTMENT FOR FURTHER REFILLS. senna 8.6 mg capsule 8.6 mg PO BID PRN (Reason: constipation) Qty: 30 0RF cyanocobalamin (vitamin B-12) 1,000 mcg/mL solution 1,000 mcg IM WEEKLY Qty: 10 0RF atorvastatin 40 mg tablet 40 mg PO DAILY aspirin 81 mg Tablet,Delayed Release (Dr/Ec) 81 mg PO DAILY amlodipine 10 mg tablet 10 mg PO DAILY oxycodone-acetaminophen 10-325 mg tablet 1 tab PO QIDP PRN (Reason: Moderate Pain (Scale Score 5-6)) insulin asp prt-insulin aspart [Novolog Mix 70-30 U-100 Insuln] 100 unit/mL (70-30) solution 12 unit SQ DAILY Jardiance 25 mg tablet 25 mg PO DAILY Soliqua 100/33 100 unit-33 mcg/mL insulin pen 32 unit SQ DAILY Qulipta 60 mg tablet 60 mg PO DAILY levofloxacin 750 mg tablet 750 mg PO DAILY 4 Days Qty: 4 0RF Referrals Follow up/Referrals: Sandra Esposito APRN [Primary Care Provider] - See instructions Activity Restrictions/Add. Instructions Additional Instructions/Restrictions: Drink plenty of fluids. Take tylenol for pain or fever. Take the medications as directed. Follow up with your regular doctor. GO TO THE ER FOR ANY WORSENING SYMPTOMS Clinical Impressions Clinical Impression: Pneumonia Print Language Print Language: [place] Discharge ED Provider: Santhosh Garcia [facility] [place] HPI General Stated complaint: Vomiting,stomach pain Mode of Arrival: Wheelchair Source of Information: Patient and Spouse Limitations: No Limitations Time Seen by Provider: 09/30/23 17:08 Description of Symptoms (Recalled from Triage Doc. by RN): Complaint of vomiting, stomach cramps and headache. HEENT Symptoms (Recalled from RN notes): No Resp Symptoms (Recalled from RN notes): No Skin Symptoms (Recalled from RN notes): No MS Symptoms (Recalled from RN notes): No Functional Status (Recalled from RN notes): wnl Related Data Home Medications ?Medication ?Instructions ?Recorded ?Confirmed baclofen 10 mg tablet 10 mg PO Q8H MUSCLE SPASM 02/09/23 09/05/23 docusate sodium 250 mg capsule 250 mg PO BID Constipation 02/09/23 09/05/23 (Stool Softener) hydroxyzine HCl 10 mg tablet 10 mg PO BID Anxiety 02/09/23 09/05/23 metformin 1,000 mg tablet 1,000 mg PO BIDWMEAL Diabetes 02/09/23 09/05/23 quetiapine 50 mg tablet 50 mg PO HS SLEEP 02/09/23 09/05/23 amlodipine 10 mg tablet 10 mg PO DAILY High Blood Pressure 04/02/23 09/05/23 aspirin 81 mg tablet,delayed 81 mg PO DAILY Heart Disease 04/02/23 09/05/23 release atogepant 60 mg tablet (Qulipta) 60 mg PO DAILY MIGRAINES 04/02/23 09/05/23 atorvastatin 40 mg tablet 40 mg PO DAILY Cholesterol 04/02/23 09/05/23 empagliflozin 25 mg tablet 25 mg PO DAILY Diabetes 04/02/23 09/05/23 (Jardiance) insulin aspar prt-insulin aspart 12 unit SQ DAILY Diabetes 04/02/23 09/05/23 100 unit/mL (70-30) subcutaneous soln (Novolog Mix 70-30 U-100 Insuln) insulin glargine 100 32 unit SQ DAILY Diabetes 04/02/23 09/05/23 unit-lixisenatide 33 mcg/mL subcutaneous pen (Soliqua 100/33) oxycodone-acetaminophen 10 mg-325 1 tab PO QIDP PRN Moderate Pain 04/02/23 09/05/23 mg tablet (Scale Score 5-6) morphine 15 mg tablet,extended mg PO 08/08/23 09/05/23 release naloxegol 25 mg tablet (Movantik) mg PO 08/08/23 09/05/23 Previous Rx's ?Medication ?Instructions ?Recorded alendronate 70 mg tablet 70 mg PO WEEKLY Osteoporosis 84 12/29/21 days #12 tabs melatonin-pyridoxine HCl (vitamin 1 tab PO HS SLEEP 30 days #30 tabs 12/29/21 B6) 5 mg-10 mg tablet carvedilol 25 mg tablet 25 mg PO BID Hypertension #180 tabs 01/04/23 levofloxacin 750 mg tablet 750 mg PO DAILY 4 days #4 tabs 04/03/23 blood sugar diagnostic (Accu-Chek #100 ea 04/13/23 Guide test strips) paroxetine HCl 20 mg tablet 60 mg (3 x 20 mg) PO HS MOOD 90 05/18/23 days #270 tabs valsartan 320 1 tab PO DAILY High Blood Pressure 05/30/23 mg-hydrochlorothiazide 12.5 mg #90 tabs tablet prochlorperazine maleate 5 mg 5 mg PO TID PRN anxiety or nausea 06/17/23 tablet #60 tabs cholecalciferol (vitamin D3) 1,250 1,250 mcg PO WEEKLY Supplement #12 07/19/23 mcg (50,000 unit) capsule caps gabapentin 600 mg tablet 600 mg PO TID NERVE PAIN #90 tabs 07/19/23 nicotine 21 mg/24 hr daily 1 patch transdermal DAILY #28 ea 08/08/23 transdermal patch clopidogrel 75 mg tablet See Rx Instructions .Route 09/05/23 .COMPLEX #90 tabs ondansetron 4 mg disintegrating 4 mg PO DAILY #30 tabs 09/05/23 tablet sennosides 8.6 mg capsule (senna) 8.6 mg PO BID PRN constipation #30 09/06/23 caps cyanocobalamin (vitamin B-12) 1,000 mcg IM WEEKLY #10 mL 09/26/23 1,000 mcg/mL injection solution benzonatate 100 mg capsule 100 mg PO TIDP PRN Cough #30 caps 09/30/23 levofloxacin 500 mg tablet 500 mg PO DAILY #7 tabs 09/30/23 ondansetron 4 mg disintegrating 4 mg PO Q8H PRN Nausea #8 tabs 09/30/23 tablet Allergies Allergy/AdvReac Type Severity Reaction Status Date / Time cefuroxime [From CEFTIN] Allergy Mild Verified 09/05/23 15:21 codeine Allergy Verified 09/30/23 16:54 Worker's Comp Is this a Worker's Comp case?: No [facility] Disclaimer: The information contained in this section may have been updated after the patient was seen, as this information can be updated by other users. Medical History (Updated 09/30/23 @ 18:45 by Santhosh Garcia APRN) Pain due to onychomycosis of toenails of both feet Hip replacement planned CVA (cerebral vascular accident) Coronary artery disease Renal cyst, left Chest pain HTN (hypertension) Abnormal electrocardiography Gastroesophageal reflux disease Dyspnea Chest pain Neuropathy, cervical (radicular) Left shoulder strain Chronic prescription opiate use Declining functional status Decubitus skin ulcer Hypertensive urgency Callus of foot Onychomycosis Diabetic foot Chronic, continuous use of opioids Hemiplegia affecting right dominant side Gastroenteritis Bronchitis Surgical History (Updated 09/05/23 @ 15:23 by Rafaela Orellana) History of knee replacement History of back surgery Social History Smoking Status: Never smoker alcohol intake: former substance use type: denies use current occupational status: retired Travel in the last 8 weeks: Inside the [place] household members: spouse housing: other caffeine: No ROS Obtained: Yes All systems reviewed & no additional complaints except as documented Constitutional Constitutional: Reports chills and Reports fever(s) Eyes Eyes: Denies eye discharge ENT Ears, Nose, Mouth, and Throat: Reports as per HPI Cardiovascular Cardiovascular: Denies chest pain Respiratory Respiratory: Denies shortness of breath, Reports chest congestion, Reports cough, Denies stridor and Denies wheezing Gastrointestinal Gastrointestingal: Reports nausea; Denies abdominal pain, constipation, cramping, diarrhea or vomiting Musculoskeletal Musculoskeletal: Denies arthralgias Integumentary/Breasts Skin/Breast: Denies rash Neurologic Neurologic: Denies paresthesias Allergic/Immunologic Allergic/Immunologic: Denies wheezing Physical Exam General General appearance: alert and in no apparent distress Eye Eye exam: Present normal appearance, PERRL and EOMI ENT ENT exam: Present mucous membranes moist and normal external ear exam Expanded ENT Exam External ear exam: Present normal external inspection TM/Canal exam: Bilateral TM: erythema and bulging Nose exam: Absent sinus tenderness Nasal speculum exam: Bilateral: normal Mouth exam: Present normal external inspection; Absent drooling Teeth exam: Present normal inspection Throat exam: Present tonsillar erythema and tonsillomegaly Neck Neck exam: Present normal inspection, full ROM and trachea midline; Absent tenderness, lymphadenopathy or thyromegaly Chest Chest inspection: Present normal inspection and symmetric chest wall rise; Absent tenderness or rash Respiratory Respiratory exam: Present normal lung sounds bilaterally; Absent respiratory distress, wheezes, stridor or accessory muscle use Cardiovascular Cardiovascular exam: Present regular rate, normal rhythm and normal heart sounds Abdominal Exam Abdominal exam: Present soft; Absent distention, tenderness, guarding, rebound or rigidity Extremities Exam Extremities exam: Present normal inspection, full ROM and normal capillary refill; Absent tenderness or calf tenderness Back Exam Back exam: Present normal inspection and full ROM; Absent tenderness Neurological Exam Neurological exam: Present alert and oriented X3 Psychiatric Psychiatric exam: Present normal affect and normal mood Skin Skin exam: Present warm, dry, intact and normal color Lymphatic Lymphatic Findings: no adenopathy Medical Decision Making Medical Records Medical records reviewed: No I reviewed the patient's medical records. Lm Inquiry Pt receiving controlled substance: No Vital Signs: 09/30/23 16:51 Temperature 98.0 F Temperature Source Oral Pulse Rate [Radial] 81 Respiratory Rate 16 Blood Pressure [Right Arm] 179/98 H Blood Pressure Mean [Right Arm] 125 Blood Pressure Source [Right Arm] Automatic Cuff Blood Pressure Position [Right Arm] Sitting 02 Sat by Pulse Oximetry 94 L Oxygen Delivery Method Room Air Lab Data Lab results reviewed: Yes I reviewed the patient's lab results. 09/30/23 17:28 09/30/23 17:28
--- NOTE | 2023-09-30 17:20 | XR_ITS ---
PROCEDURE INFORMATION: Exam: XR Chest Exam date and time: 09/30/2023 5:25 PM Age: 72 years old Clinical indication: Cough; Additional info: Cough, congestion TECHNIQUE: Imaging protocol: Radiologic exam of the chest. Views: 1 view. COMPARISON: CR XR CHEST PORTABLE 04/01/2023 6:04 PM FINDINGS: Lungs: Bibasilar opacities could reflect parenchymal crowding but underlying consolidations are not excluded. There is mild prominence of the perihilar lung markings which could be related to crowding. Pleural spaces: No large effusion or pneumothorax. Heart/Mediastinum: No evidence of mediastinal widening or cardiac silhouette enlargement; the mediastinum and heart appear within normal limits for contour and size. Bones/joints: There is extensive surgical hardware throughout the spine. Other findings: There is a low level of inspiration. IMPRESSION: Bibasilar opacities could reflect parenchymal crowding but underlying consolidations are not excluded.
[2023-09-30 18:22] LABS: Basophils # 0.1 K/mm3 (0-0.2); Basophils % 0.5 % (0.1-2.0); Eosinophils % 0.1 % (0.1-12.0); Hematocrit 47.4 % (37.0-47.0); Hemoglobin 14.6 g/dL (12.2-16.2); Lymphocytes # 0.9 K/mm3 (0.7-4.5); Lymphocytes % 6.8 % (10-50); Mean Corpuscular HGB Conc 30.9 g/dL (31.8-35.4); Mean Corpuscular Hemoglobin 32.7 pg (27.0-31.2); Mean Corpuscular Volume 105.9 fl (81-99); Mean Platelet Volume 7.5 fl (7.4-10.4); Monocytes # 0.5 K/mm3 (0.1-1.0); Monocytes % 3.5 % (1.7-9.3); Neutrophils # 11.4 K/mm3 (1.8-7.8); Neutrophils % 89.1 % (37.0-80.0); Platelet Count 468 K/mm3 (142-424); Red Blood Count 4.48 M/mm3 (4.20-5.40); Red Cell Distribution Width 15.2 % (11.5-17.5); White Blood Count 12.8 K/mm3 (4.8-10.8)
[2023-09-30 18:23] LABS: Albumin Level 4.6 g/dl (3.5-5.0); Chloride 101 mmol/L (98-107)
[2023-09-30 18:24] LABS: MANUAL DIFFERENTIAL MANUAL DIFFERENTIAL (MANUAL DIFF); Sodium 135 mmol/L (136-145)
[2023-09-30 18:26] LABS: Blood Urea Nitrogen 19 mg/dl (7-17); Creatinine Clearance Estimated 60 mL/min (50-200); Estimated Glomerular Filt Rate 70 ml/min (>60); GFR (African American) 85 ML/MIN (>60)
[2023-09-30 18:27] LABS: Alanine Aminotransferase 28 U/L (12-78); Albumin/Globulin Ratio 1.2 (1.1-1.8); Alkaline Phosphatase 121 U/L (38-126); Aspartate Amino Transferase 32 U/L (14-36); Bilirubin,Total 0.9 mg/dl (0.2-1.3); Calcium 9.5 mg/dl (8.4-10.2); Carbon Dioxide 25 mmol/L (22.0-30.0); Globulin 3.7 g/dL (1.3-3.2); Glucose 343 mg/dl (74-100); Total Protein,Serum 8.3 g/dl (6.3-8.2)
[2023-09-30 18:51] VITALS: BP 179/98; PULSE 81; RESP 16; TEMP 36.7; O2SAT 94
[2023-09-30 18:53] LABS: Lymphocytes % 9 % (10-50); Macrocytosis 1+; Monocytes % 6 % (2-9); Neutrophils % 85 % (42-76); Platelet Estimate Slight Increase; Total Cells Counted 100
[2023-09-30 19:12] LABS: Coronavirus 19, PCR Not Detected (NotDetected); Influenza A, PCR Not Detected (NotDetected); Influenza B, PCR Not Detected (NotDetected)
== END 2023-09-30 18:52 | disposition home or self-care (01) ==
PROVIDERS: Emergency Provider Nurse Practitioner Family; PCP Nurse Practitioner Family
DX: J18.9 Pneumonia, unspecified organism (principal); R51.9 Headache, unspecified; R10.9 Unspecified abdominal pain; R11.2 Nausea with vomiting, unspecified; E11.65 Type 2 diabetes mellitus with hyperglycemia; Z79.4 Long term (current) use of insulin; Z79.84 Long term (current) use of oral hypoglycemic drugs
CPT/HCPCS: 71045; 80053; 85007; 85025; 85027; 87636; 99204; 99212; G0463

== ENCOUNTER 2023-10-08 13:56 | Emergency (ER) | payer MEDICARE, SELFPAY ==
[2023-10-08] VITALS (20 sets, daily range): BP systolic 169–205; BP diastolic 66–91; PULSE 62–79; RESP 20; TEMP 36.8; O2SAT 95–100; BMI 31.1
--- NOTE | 2023-10-08 14:00 | ED_ITS ---
Discharge Plan Disposition Patient Disposition: Home, Self-Care Condition: Good Prescriptions Prescriptions: New ondansetron 4 mg tablet,disintegrating 4 mg PO Q8H PRN (Reason: nausea and vomiting) 4 Days Qty: 9 0RF No Action alendronate 70 mg tablet 70 mg PO WEEKLY 84 Days Qty: 12 0RF melatonin-pyridoxine HCl (B6) 5-10 mg tablet 1 tab PO HS 30 Days Qty: 30 0RF docusate sodium [Stool Softener] 250 mg capsule 250 mg PO BID hydroxyzine HCl 10 mg tablet 10 mg PO BID baclofen 10 mg tablet 10 mg PO Q8H metformin 1,000 mg tablet 1,000 mg PO BIDWMEAL quetiapine 50 mg tablet 50 mg PO HS morphine 15 mg tablet extended release PO Movantik 25 mg tablet PO nicotine 21 mg/24 hr patch 24 hour 1 patch transdermal DAILY Qty: 28 0RF carvedilol 25 mg tablet 25 mg PO BID Qty: 180 3RF (DME) Accu-Chek Guide test strips Strip See Rx Instructions .Route Qty: 100 11RF Rx Instructions: Check fsbs once daily and as needed paroxetine HCl 20 mg tablet 60 mg PO HS 90 Days Qty: 270 3RF valsartan-hydrochlorothiazide 320-12.5 mg tablet 1 tab PO DAILY Qty: 90 1RF prochlorperazine maleate 5 mg tablet 5 mg PO TID PRN (Reason: anxiety or nausea) Qty: 60 3RF cholecalciferol (vitamin D3) 1,250 mcg (50,000 unit) capsule 1,250 mcg PO WEEKLY Qty: 12 1RF gabapentin 600 mg tablet 600 mg PO TID Qty: 90 1RF ondansetron 4 mg tablet,disintegrating 4 mg PO DAILY Qty: 30 2RF clopidogrel 75 mg tablet See Rx Instructions .ROUTE .COMPLEX Qty: 90 3RF Dose Instruction: TAKE 1 TABLET EVERY DAY FOR CAD. NEEDS APPOINTMENT FOR FURTHER REFILLS. Rx Instructions: TAKE 1 TABLET EVERY DAY FOR CAD. NEEDS APPOINTMENT FOR FURTHER REFILLS. senna 8.6 mg capsule 8.6 mg PO BID PRN (Reason: constipation) Qty: 30 0RF cyanocobalamin (vitamin B-12) 1,000 mcg/mL solution 1,000 mcg IM WEEKLY Qty: 10 0RF atorvastatin 40 mg tablet 40 mg PO DAILY aspirin 81 mg Tablet,Delayed Release (Dr/Ec) 81 mg PO DAILY amlodipine 10 mg tablet 10 mg PO DAILY oxycodone-acetaminophen 10-325 mg tablet 1 tab PO QIDP PRN (Reason: Moderate Pain (Scale Score 5-6)) insulin asp prt-insulin aspart [Novolog Mix 70-30 U-100 Insuln] 100 unit/mL (70-30) solution 12 unit SQ DAILY Jardiance 25 mg tablet 25 mg PO DAILY Soliqua 100/33 100 unit-33 mcg/mL insulin pen 32 unit SQ DAILY Qulipta 60 mg tablet 60 mg PO DAILY levofloxacin 750 mg tablet 750 mg PO DAILY 4 Days Qty: 4 0RF benzonatate 100 mg capsule 100 mg PO TIDP PRN (Reason: Cough) Qty: 30 0RF levofloxacin 500 mg tablet 500 mg PO DAILY Qty: 7 0RF ondansetron 4 mg Tablet,Disintegrating 4 mg PO Q8H PRN (Reason: Nausea) Qty: 8 0RF Referrals Follow up/Referrals: Sandra Esposito APRN [Primary Care Provider] - See instructions Clinical Impressions Clinical Impression: Nausea & vomiting Instructions Patient Instructions: Nausea and Vomiting-Adult Print Language Print Language: Urdu Discharge ED Provider: Vic Jefferson [facility] Adult HPI <Robin Leyva MD - Last Filed: 10/08/23 15:53> General Chief complaint: Nausea/Vomiting/Diarrhea Stated complaint: vomiting, weakness Time Seen by Provider: 10/08/23 14:00 History of Present Illness HPI narrative: The patient presents with a chief complaint of persistent nausea, vomiting, and abdominal pain for the past two weeks. She also reports experiencing back pain, but the location is not specified. The patient has had difficulty keeping down food and liquids during this time. The patient was previously seen at an urgent care facility and was diagnosed with pneumonia. She was prescribed a Z-Patricio (azithromycin) and has completed the course of antibiotics. Despite treatment, the patient continues to experience nausea and vomiting. The patient denies having diarrhea and has not had issues with nausea and vomiting in the past. She also denies any history of kidney stones. The patient reports feeling feverish and sweating profusely during the visit. She denies any shortness of breath or coughing up any sputum. Please note that above description of symptoms, in this electronic medical record under categorization of recalled from ER triage doctor by RN are reflective of an initial nursing assessment, however, is not reflective of my full history and physical exam that was personally taken and clarified. Consequentially, this preceding description of symptoms, which may include the patient's categorized chief complaint in the EMR, do not reflect my personal clinical impression, and the ultimate description of history of present illness and patient stated complaints should be deferred to this section of the note. Unless stated otherwise or congruent with this section of the note, additional signs, symptoms, or incongruence should be interpreted as inaccurate with my clinical impression. Related Data Home Medications ?Medication ?Instructions ?Recorded ?Confirmed baclofen 10 mg tablet 10 mg PO Q8H MUSCLE SPASM 02/09/23 09/05/23 docusate sodium 250 mg capsule 250 mg PO BID Constipation 02/09/23 09/05/23 (Stool Softener) hydroxyzine HCl 10 mg tablet 10 mg PO BID Anxiety 02/09/23 09/05/23 metformin 1,000 mg tablet 1,000 mg PO BIDWMEAL Diabetes 02/09/23 09/05/23 quetiapine 50 mg tablet 50 mg PO HS SLEEP 02/09/23 09/05/23 amlodipine 10 mg tablet 10 mg PO DAILY High Blood Pressure 04/02/23 09/05/23 aspirin 81 mg tablet,delayed 81 mg PO DAILY Heart Disease 04/02/23 09/05/23 release atogepant 60 mg tablet (Qulipta) 60 mg PO DAILY MIGRAINES 04/02/23 09/05/23 atorvastatin 40 mg tablet 40 mg PO DAILY Cholesterol 04/02/23 09/05/23 empagliflozin 25 mg tablet 25 mg PO DAILY Diabetes 04/02/23 09/05/23 (Jardiance) insulin aspar prt-insulin aspart 12 unit SQ DAILY Diabetes 04/02/23 09/05/23 100 unit/mL (70-30) subcutaneous soln (Novolog Mix 70-30 U-100 Insuln) insulin glargine 100 32 unit SQ DAILY Diabetes 04/02/23 09/05/23 unit-lixisenatide 33 mcg/mL subcutaneous pen (Soliqua 100/33) oxycodone-acetaminophen 10 mg-325 1 tab PO QIDP PRN Moderate Pain 04/02/23 09/05/23 mg tablet (Scale Score 5-6) morphine 15 mg tablet,extended mg PO 08/08/23 09/05/23 release naloxegol 25 mg tablet (Movantik) mg PO 08/08/23 09/05/23 Previous Rx's ?Medication ?Instructions ?Recorded alendronate 70 mg tablet 70 mg PO WEEKLY Osteoporosis 84 12/29/21 days #12 tabs melatonin-pyridoxine HCl (vitamin 1 tab PO HS SLEEP 30 days #30 tabs 12/29/21 B6) 5 mg-10 mg tablet carvedilol 25 mg tablet 25 mg PO BID Hypertension #180 tabs 01/04/23 levofloxacin 750 mg tablet 750 mg PO DAILY 4 days #4 tabs 04/03/23 blood sugar diagnostic (Accu-Chek #100 ea 04/13/23 Guide test strips) paroxetine HCl 20 mg tablet 60 mg (3 x 20 mg) PO HS MOOD 90 05/18/23 days #270 tabs valsartan 320 1 tab PO DAILY High Blood Pressure 05/30/23 mg-hydrochlorothiazide 12.5 mg #90 tabs tablet prochlorperazine maleate 5 mg 5 mg PO TID PRN anxiety or nausea 06/17/23 tablet #60 tabs cholecalciferol (vitamin D3) 1,250 1,250 mcg PO WEEKLY Supplement #12 07/19/23 mcg (50,000 unit) capsule caps gabapentin 600 mg tablet 600 mg PO TID NERVE PAIN #90 tabs 07/19/23 nicotine 21 mg/24 hr daily 1 patch transdermal DAILY #28 ea 08/08/23 transdermal patch clopidogrel 75 mg tablet See Rx Instructions .Route 09/05/23 .COMPLEX #90 tabs ondansetron 4 mg disintegrating 4 mg PO DAILY #30 tabs 09/05/23 tablet sennosides 8.6 mg capsule (senna) 8.6 mg PO BID PRN constipation #30 09/06/23 caps cyanocobalamin (vitamin B-12) 1,000 mcg IM WEEKLY #10 mL 09/26/23 1,000 mcg/mL injection solution benzonatate 100 mg capsule 100 mg PO TIDP PRN Cough #30 caps 09/30/23 levofloxacin 500 mg tablet 500 mg PO DAILY #7 tabs 09/30/23 ondansetron 4 mg disintegrating 4 mg PO Q8H PRN Nausea #8 tabs 09/30/23 tablet ondansetron 4 mg disintegrating 4 mg PO Q8H PRN nausea and 10/08/23 tablet vomiting 4 days #9 tabs Allergies Allergy/AdvReac Type Severity Reaction Status Date / Time cefuroxime [From CEFTIN] Allergy Mild Verified 09/05/23 15:21 codeine Allergy Verified 09/30/23 16:54 [facility] <Robin Leyva MD - Last Filed: 10/08/23 15:53> [facility] Disclaimer: The information contained in this section may have been updated after the patient was seen, as this information can be updated by other users. Medical History (Updated 10/08/23 @ 21:28 by Vic Jefferson DO) Pain due to onychomycosis of toenails of both feet Hip replacement planned CVA (cerebral vascular accident) Coronary artery disease Renal cyst, left Chest pain HTN (hypertension) Abnormal electrocardiography Gastroesophageal reflux disease Dyspnea Chest pain Neuropathy, cervical (radicular) Left shoulder strain Chronic prescription opiate use Declining functional status Decubitus skin ulcer Hypertensive urgency Callus of foot Onychomycosis Diabetic foot Chronic, continuous use of opioids Hemiplegia affecting right dominant side Gastroenteritis Bronchitis Surgical History (Updated 09/05/23 @ 15:23 by Rafaela Orellana) History of knee replacement History of back surgery Social History Smoking Status: Current every day smoker tobacco type: cigarettes packs per day: 1 alcohol intake: former substance use type: denies use current occupational status: retired Travel in the last 8 weeks: Inside the [place] household members: spouse housing: other caffeine: No <Robin Leyva MD - Last Filed: 10/08/23 15:53> ROS Obtained: Yes other As per HPI Physical Exam <Robin Leyva MD - Last Filed: 10/08/23 15:53> General General appearance: alert and in no apparent distress Head Head exam: atraumatic and normocephalic Eye Eye exam: Present normal appearance Neck Neck exam: Present normal inspection Chest Chest inspection: Present normal inspection and symmetric chest wall rise Respiratory Respiratory exam: Present other (No wheezing, trace bilateral crackles in bases) Cardiovascular Cardiovascular exam: Present regular rate and normal rhythm Abdominal Exam Abdominal exam: Present soft Comment: No focal abdominal tenderness to palpation Neurological Exam Neurological exam: Present alert Psychiatric Psychiatric exam: Present normal affect and normal mood Skin Skin exam: Present warm and dry Medical Decision Making <Robin Leyva MD - Last Filed: 10/08/23 15:53> Medical Records Medical records reviewed: Yes I reviewed the patient's medical records. Lm Inquiry Pt receiving controlled substance: No Vital Signs: 10/08/23 14:05 10/08/23 14:10 10/08/23 14:41 Temperature 98.2 F Temperature Source Oral Pulse Rate 79 69 Pulse Rate [Left Radial] 79 Respiratory Rate 20 Blood Pressure 186/82 H 177/81 H Blood Pressure [Right Arm] 186/82 H Blood Pressure Mean Blood Pressure Mean [Right Arm] 116 02 Sat by Pulse Oximetry 95 100 97 Oxygen Delivery Method Room Air 10/08/23 14:48 10/08/23 15:19 10/08/23 15:31 Temperature Temperature Source Pulse Rate 67 72 73 Pulse Rate [Left Radial] Respiratory Rate Blood Pressure 189/91 H 174/73 H 198/82 H Blood Pressure [Right Arm] Blood Pressure Mean Blood Pressure Mean [Right Arm] 02 Sat by Pulse Oximetry 95 97 97 Oxygen Delivery Method 10/08/23 15:33 10/08/23 16:00 10/08/23 16:31 Temperature Temperature Source Pulse Rate 71 73 68 Pulse Rate [Left Radial] Respiratory Rate Blood Pressure 182/71 H 192/79 H 189/66 H Blood Pressure [Right Arm] Blood Pressure Mean Blood Pressure Mean [Right Arm] 02 Sat by Pulse Oximetry 96 97 98 Oxygen Delivery Method 10/08/23 17:01 10/08/23 17:31 10/08/23 18:00 Temperature Temperature Source Pulse Rate 69 71 71 Pulse Rate [Left Radial] Respiratory Rate Blood Pressure 189/71 H 186/70 H 187/72 H Blood Pressure [Right Arm] Blood Pressure Mean Blood Pressure Mean [Right Arm] 02 Sat by Pulse Oximetry 98 98 96 Oxygen Delivery Method 10/08/23 18:32 10/08/23 19:01 10/08/23 19:30 Temperature Temperature Source Pulse Rate 78 68 70 Pulse Rate [Left Radial] Respiratory Rate Blood Pressure 180/73 H 169/73 H 188/71 H Blood Pressure [Right Arm] Blood Pressure Mean 105 110 Blood Pressure Mean [Right Arm] 02 Sat by Pulse Oximetry 98 97 97 Oxygen Delivery Method 10/08/23 20:01 10/08/23 20:04 10/08/23 20:31 Temperature Temperature Source Pulse Rate 78 79 63 Pulse Rate [Left Radial] Respiratory Rate Blood Pressure 191/84 H 183/73 H 180/75 H Blood Pressure [Right Arm] Blood Pressure Mean 109 109 110 Blood Pressure Mean [Right Arm] 02 Sat by Pulse Oximetry 98 97 97 Oxygen Delivery Method 10/08/23 21:00 10/08/23 21:32 Temperature 98.2 F Temperature Source Pulse Rate 62 64 Pulse Rate [Left Radial] Respiratory Rate 20 Blood Pressure 205/79 H 185/74 H Blood Pressure [Right Arm] Blood Pressure Mean 119 Blood Pressure Mean [Right Arm] 02 Sat by Pulse Oximetry 96 Oxygen Delivery Method Room Air Lab Data Lab Results 10/08/23 14:10: WBC 8.5, RBC 4.19 L, Hgb 13.8, Hct 44.5, MCV 106.1 H, MCH 32.8 H , MCHC 30.9 L, RDW 14.2, Plt Count 372, MPV 7.0 L, Neut % (Auto) 76.2, Lymph % (Auto) 16.3, [place] % (Auto) 6.3, Eos % (Auto) 0.7, Baso % (Auto) 0.6, Neut # (Auto) 6.5, Lymph # (Auto) 1.4, [place] # (Auto) 0.5, Eos # (Auto) 0.1, Baso # (Auto) 0.1, Sodium 132 L, Potassium 4.1, Chloride 96 L, Carbon Dioxide 26, Anion Gap 14.1, BUN 12, Creatinine 0.60, Estimated Creat Clear 60, Estimated GFR 98, Est GFR ( Amer) 118, Glucose 195 H, Calcium 8.7, Total Bilirubin 0.8, AST 22, ALT 19, Alkaline Phosphatase 95, NT-Pro-B Natriuret Pep 2330 H, Total Protein 7.3, Albumin 4.0, Globulin 3.3 H, Albumin/Globulin Ratio 1.2, Lipase 79 10/08/23 14:28: SARS-CoV-2 (PCR) Not detected, Influenza A Untype (PCR) Not detected, Influenza Type B (PCR) Not detected 10/08/23 14:38: Lactate 1.2 10/08/23 16:39: Urine Color Yellow, Urine Appearance Clear, Urine pH 6.5, Ur Specific [place] 1.020, Urine Protein 2+, Urine Glucose (UA) Negative, Urine Ketones 1+, Urine Blood Trace-i, Urine Nitrate Negative, Urine Bilirubin Negative, Urine Urobilinogen 1.0, Ur Leukocyte Esterase Negative, Urine RBC None, Urine WBC 5-10, Ur Squamous Epith Cells 5-10, Urine Bacteria Trace 10/08/23 14:10 10/08/23 14:10 Orders (Tests/Meds): ED MEDICATIONS Discontinued Medications Generic Name Dose Route Start Last Admin Trade Name Freq PRN Reason Stop Dose Admin Lactated Ringer's 1,000 mls @ 999 mls/hr 10/08/23 14:24 10/08/23 14:40 Lactated Ringer's 1000 Ml Bag IV 10/08/23 15:24 999 mls/hr .Q1H1M ONE Administration Iopamidol 95 ml 10/08/23 15:05 10/08/23 15:07 Iopamidol-370 (76%);100ml Bottle IV 10/08/23 15:06 95 ml ONCE ONE Administration Metoprolol Tartrate 5 mg 10/08/23 20:21 10/08/23 20:23 Metoprolol Tartrate 5mg/5ml Vial IV 10/08/23 20:22 5 mg ONCE ONE Administration Morphine Sulfate 4 mg 10/08/23 14:24 10/08/23 14:40 Morphine 4mg/Ml Syringe IV 10/08/23 14:25 4 mg ONCE ONE Administration Ondansetron HCl 4 mg 10/08/23 14:24 10/08/23 14:41 Ondansetron 4mg/2ml Vial IV 10/08/23 14:25 4 mg ONCE ONE Administration Sodium Chloride 50 ml 10/08/23 15:05 10/08/23 15:07 0.9 % Sodium Chloride 50 Ml Vial IV 10/08/23 15:06 50 ml ONCE ONE Administration Sodium Chloride 10 ml 10/08/23 15:05 10/08/23 15:07 Sodium Chloride 0.9% 10ml Syr (Rad Only) IV 11/07/23 15:04 10 ml NEEDED PRN Administration Maintain IV Site ORDERS Category Date Time Status CT angio abdomen pelvis Stat Cat Scan 10/08/23 14:27 Completed CTA Chest [CT angio chest PE protocol] Stat Cat Scan 10/08/23 14:26 Completed BNP [NT Pro Brain Natriuretic Pep.] Stat Lab 10/08/23 14:10 Completed CBC w/Auto Diff [Complete Blood Count Auto Diff] Stat Lab 10/08/23 14:10 Completed CMP [Comprehensive Metabolic Panel] Stat Lab 10/08/23 14:10 Completed Lactic Acid Stat Lab 10/08/23 14:38 Completed Lipase Stat Lab 10/08/23 14:10 Completed Rapid PCR Covid and Flu A/B Stat Lab 10/08/23 14:28 Completed Urinalysis and Microscopic Stat Lab 10/08/23 16:39 Completed Medical Decision Narrative: Patient with history and exam per above presenting for evaluation of abdominal pain Diagnoses considered include mesenteric ischemia, community-acquired pneumonia, pulmonary embolism, CHF exacerbation, differential broad given paucity of specific symptoms, in the setting of multiple comorbidities. ED workup and treatment included: ED MEDICATIONS Generic Name Dose Route Start Last Admin Trade Name Freq PRN Reason Stop Dose Admin Sodium Chloride 10 ml 10/08/23 15:05 10/08/23 15:07 Sodium Chloride 0.9% 10ml Syr (Rad Only) IV 11/07/23 15:04 10 ml NEEDED PRN Administration Maintain IV Site Discontinued Medications Generic Name Dose Route Start Last Admin Trade Name Freq PRN Reason Stop Dose Admin Lactated Ringer's 1,000 mls @ 999 mls/hr 10/08/23 14:24 10/08/23 14:40 Lactated Ringer's 1000 Ml Bag IV 10/08/23 15:24 999 mls/hr .Q1H1M ONE Administration Iopamidol 95 ml 10/08/23 15:05 10/08/23 15:07 Iopamidol-370 (76%);100ml Bottle IV 10/08/23 15:06 95 ml ONCE ONE Administration Morphine Sulfate 4 mg 10/08/23 14:24 10/08/23 14:40 Morphine 4mg/Ml Syringe IV 10/08/23 14:25 4 mg ONCE ONE Administration Ondansetron HCl 4 mg 10/08/23 14:24 10/08/23 14:41 Ondansetron 4mg/2ml Vial IV 10/08/23 14:25 4 mg ONCE ONE Administration Sodium Chloride 50 ml 10/08/23 15:05 10/08/23 15:07 0.9 % Sodium Chloride 50 Ml Vial IV 10/08/23 15:06 50 ml ONCE ONE Administration ORDERS Category Date Time Status CT angio abdomen pelvis Stat Cat Scan 10/08/23 14:27 Taken CTA Chest [CT angio chest PE protocol] Stat Cat Scan 10/08/23 14:26 Taken BNP [NT Pro Brain Natriuretic Pep.] Stat Lab 10/08/23 14:10 Completed CBC w/Auto Diff [Complete Blood Count Auto Diff] Stat Lab 10/08/23 14:10 Completed CMP [Comprehensive Metabolic Panel] Stat Lab 10/08/23 14:10 Completed Lactic Acid Stat Lab 10/08/23 14:38 Completed Lipase Stat Lab 10/08/23 14:10 Completed Rapid PCR Covid and Flu A/B Stat Lab 10/08/23 14:28 Completed Urinalysis and Microscopic Stat Lab 10/08/23 14:28 Ordered Labs were independently interpreted by me, significant for BNP 2330, no leukocytosis, creatinine within normal limits, other labs pending at this time Imaging pending at this time. Care was transferred to incoming physician. <Vic Jefferson, DO - Last Filed: 10/08/23 23:50> Vital Signs: 10/08/23 14:05 10/08/23 14:10 10/08/23 14:41 Temperature 98.2 F Temperature Source Oral Pulse Rate 79 69 Pulse Rate [Left Radial] 79 Respiratory Rate 20 Blood Pressure 186/82 H 177/81 H Blood Pressure [Right Arm] 186/82 H Blood Pressure Mean Blood Pressure Mean [Right Arm] 116 02 Sat by Pulse Oximetry 95 100 97 Oxygen Delivery Method Room Air 10/08/23 14:48 10/08/23 15:19 10/08/23 15:31 Temperature Temperature Source Pulse Rate 67 72 73 Pulse Rate [Left Radial] Respiratory Rate Blood Pressure 189/91 H 174/73 H 198/82 H Blood Pressure [Right Arm] Blood Pressure Mean Blood Pressure Mean [Right Arm] 02 Sat by Pulse Oximetry 95 97 97 Oxygen Delivery Method 10/08/23 15:33 10/08/23 16:00 10/08/23 16:31 Temperature Temperature Source Pulse Rate 71 73 68 Pulse Rate [Left Radial] Respiratory Rate Blood Pressure 182/71 H 192/79 H 189/66 H Blood Pressure [Right Arm] Blood Pressure Mean Blood Pressure Mean [Right Arm] 02 Sat by Pulse Oximetry 96 97 98 Oxygen Delivery Method 10/08/23 17:01 10/08/23 17:31 08/17/24 18:00 Temperature Temperature Source Pulse Rate 69 71 71 Pulse Rate [Left Radial] Respiratory Rate Blood Pressure 189/71 H 186/70 H 187/72 H Blood Pressure [Right Arm] Blood Pressure Mean Blood Pressure Mean [Right Arm] 02 Sat by Pulse Oximetry 98 98 96 Oxygen Delivery Method 10/08/23 18:32 10/08/23 19:01 10/08/23 19:30 Temperature Temperature Source Pulse Rate 78 68 70 Pulse Rate [Left Radial] Respiratory Rate Blood Pressure 180/73 H 169/73 H 188/71 H Blood Pressure [Right Arm] Blood Pressure Mean 105 110 Blood Pressure Mean [Right Arm] 02 Sat by Pulse Oximetry 98 97 97 Oxygen Delivery Method 10/08/23 20:01 10/08/23 20:04 10/08/23 20:31 Temperature Temperature Source Pulse Rate 78 79 63 Pulse Rate [Left Radial] Respiratory Rate Blood Pressure 191/84 H 183/73 H 180/75 H Blood Pressure [Right Arm] Blood Pressure Mean 109 109 110 Blood Pressure Mean [Right Arm] 02 Sat by Pulse Oximetry 98 97 97 Oxygen Delivery Method 10/08/23 21:00 10/08/23 21:32 Temperature 98.2 F Temperature Source Pulse Rate 62 64 Pulse Rate [Left Radial] Respiratory Rate 20 Blood Pressure 205/79 H 185/74 H Blood Pressure [Right Arm] Blood Pressure Mean 119 Blood Pressure Mean [Right Arm] 02 Sat by Pulse Oximetry 96 Oxygen Delivery Method Room Air Lab Data Lab Results 10/08/23 14:10: WBC 8.5, RBC 4.19 L, Hgb 13.8, Hct 44.5, MCV 106.1 H, MCH 32.8 H , MCHC 30.9 L, RDW 14.2, Plt Count 372, MPV 7.0 L, Neut % (Auto) 76.2, Lymph % (Auto) 16.3, [place] % (Auto) 6.3, Eos % (Auto) 0.7, Baso % (Auto) 0.6, Neut # (Auto) 6.5, Lymph # (Auto) 1.4, [place] # (Auto) 0.5, Eos # (Auto) 0.1, Baso # (Auto) 0.1, Sodium 132 L, Potassium 4.1, Chloride 96 L, Carbon Dioxide 26, Anion Gap 14.1, BUN 12, Creatinine 0.60, Estimated Creat Clear 60, Estimated GFR 98, Est GFR ( Amer) 118, Glucose 195 H, Calcium 8.7, Total Bilirubin 0.8, AST 22, ALT 19, Alkaline Phosphatase 95, NT-Pro-B Natriuret Pep 2330 H, Total Protein 7.3, Albumin 4.0, Globulin 3.3 H, Albumin/Globulin Ratio 1.2, Lipase 79 10/08/23 14:28: SARS-CoV-2 (PCR) Not detected, Influenza A Untype (PCR) Not detected, Influenza Type B (PCR) Not detected 10/08/23 14:38: Lactate 1.2 10/08/23 16:39: Urine Color Yellow, Urine Appearance Clear, Urine pH 6.5, Ur Specific [place] 1.020, Urine Protein 2+, Urine Glucose (UA) Negative, Urine Ketones 1+, Urine Blood Trace-i, Urine Nitrate Negative, Urine Bilirubin Negative, Urine Urobilinogen 1.0, Ur Leukocyte Esterase Negative, Urine RBC None, Urine WBC 5-10, Ur Squamous Epith Cells 5-10, Urine Bacteria Trace Orders (Tests/Meds): ED MEDICATIONS Discontinued Medications Generic Name Dose Route Start Last Admin Trade Name Freq PRN Reason Stop Dose Admin Lactated Ringer's 1,000 mls @ 999 mls/hr 10/08/23 14:24 10/08/23 14:40 Lactated Ringer's 1000 Ml Bag IV 10/08/23 15:24 999 mls/hr .Q1H1M ONE Administration Iopamidol 95 ml 10/08/23 15:05 10/08/23 15:07 Iopamidol-370 (76%);100ml Bottle IV 10/08/23 15:06 95 ml ONCE ONE Administration Metoprolol Tartrate 5 mg 10/08/23 20:21 10/08/23 20:23 Metoprolol Tartrate 5mg/5ml Vial IV 10/08/23 20:22 5 mg ONCE ONE Administration Morphine Sulfate 4 mg 10/08/23 14:24 10/08/23 14:40 Morphine 4mg/Ml Syringe IV 10/08/23 14:25 4 mg ONCE ONE Administration Ondansetron HCl 4 mg 10/08/23 14:24 10/08/23 14:41 Ondansetron 4mg/2ml Vial IV 10/08/23 14:25 4 mg ONCE ONE Administration Sodium Chloride 50 ml 10/08/23 15:05 10/08/23 15:07 0.9 % Sodium Chloride 50 Ml Vial IV 10/08/23 15:06 50 ml ONCE ONE Administration Sodium Chloride 10 ml 10/08/23 15:05 10/08/23 15:07 Sodium Chloride 0.9% 10ml Syr (Rad Only) IV 11/07/23 15:04 10 ml NEEDED PRN Administration Maintain IV Site ORDERS Category Date Time Status CT angio abdomen pelvis Stat Cat Scan 10/08/23 14:27 Completed CTA Chest [CT angio chest PE protocol] Stat Cat Scan 10/08/23 14:26 Completed BNP [NT Pro Brain Natriuretic Pep.] Stat Lab 10/08/23 14:10 Completed CBC w/Auto Diff [Complete Blood Count Auto Diff] Stat Lab 10/08/23 14:10 Completed CMP [Comprehensive Metabolic Panel] Stat Lab 10/08/23 14:10 Completed Lactic Acid Stat Lab 10/08/23 14:38 Completed Lipase Stat Lab 10/08/23 14:10 Completed Rapid PCR Covid and Flu A/B Stat Lab 10/08/23 14:28 Completed Urinalysis and Microscopic Stat Lab 10/08/23 16:39 Completed Medical Decision Narrative: Patient with history and exam per above presenting for evaluation of abdominal pain Diagnoses considered include mesenteric ischemia, community-acquired pneumonia, pulmonary embolism, CHF exacerbation, differential broad given paucity of specific symptoms, in the setting of multiple comorbidities. ED workup and treatment included: ED MEDICATIONS Generic Name Dose Route Start Last Admin Trade Name Freq PRN Reason Stop Dose Admin Sodium Chloride 10 ml 10/08/23 15:05 10/08/23 15:07 Sodium Chloride 0.9% 10ml Syr (Rad Only) IV 11/07/23 15:04 10 ml NEEDED PRN Administration Maintain IV Site Discontinued Medications Generic Name Dose Route Start Last Admin Trade Name Freq PRN Reason Stop Dose Admin Lactated Ringer's 1,000 mls @ 999 mls/hr 10/08/23 14:24 10/08/23 14:40 Lactated Ringer's 1000 Ml Bag IV 10/08/23 15:24 999 mls/hr .Q1H1M ONE Administration Iopamidol 95 ml 10/08/23 15:05 10/08/23 15:07 Iopamidol-370 (76%);100ml Bottle IV 10/08/23 15:06 95 ml ONCE ONE Administration Morphine Sulfate 4 mg 10/08/23 14:24 10/08/23 14:40 Morphine 4mg/Ml Syringe IV 10/08/23 14:25 4 mg ONCE ONE Administration Ondansetron HCl 4 mg 10/08/23 14:24 10/08/23 14:41 Ondansetron 4mg/2ml Vial IV 10/08/23 14:25 4 mg ONCE ONE Administration Sodium Chloride 50 ml 10/08/23 15:05 10/08/23 15:07 0.9 % Sodium Chloride 50 Ml Vial IV 10/08/23 15:06 50 ml ONCE ONE Administration ORDERS Category Date Time Status CT angio abdomen pelvis Stat Cat Scan 10/08/23 14:27 Taken CTA Chest [CT angio chest PE protocol] Stat Cat Scan 10/08/23 14:26 Taken BNP [NT Pro Brain Natriuretic Pep.] Stat Lab 10/08/23 14:10 Completed CBC w/Auto Diff [Complete Blood Count Auto Diff] Stat Lab 10/08/23 14:10 Completed CMP [Comprehensive Metabolic Panel] Stat Lab 10/08/23 14:10 Completed Lactic Acid Stat Lab 10/08/23 14:38 Completed Lipase Stat Lab 10/08/23 14:10 Completed Rapid PCR Covid and Flu A/B Stat Lab 10/08/23 14:28 Completed Urinalysis and Microscopic Stat Lab 10/08/23 14:28 Ordered Labs were independently interpreted by me, significant for BNP 2330, no leukocytosis, creatinine within normal limits, other labs pending at this time Imaging pending at this time. Care was transferred to incoming physician. Upon my assumption of care CT imaging pending. Remainder of laboratory workup nonactionable. 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 [facility] MDs distribution clerk Dr. Clark, thoracic surgeon Dr. Escobar and vascular surgeon Dr. 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 They recommend outpatient follow-up with primary care for further surveillance and evaluation. Discussed findings with patient and her family who indicate understanding and all questions were asked. At this time patient states she is feeling better and would like to go home. I have prescribed Zofran for further symptomatic management of nausea. Patient to follow-up with primary care and given strict instructions to return to ED if symptoms worsen. Discharged home with hemodynamically stable vitals Critical Care <Robin Leyva MD - Last Filed: 10/08/23 15:53> Critical Care Time Critical Care Time: No
--- NOTE | 2023-10-08 14:19 | PC.NURSE ---
Dr. Leyva at [facility] for pt eval
--- NOTE | 2023-10-08 14:26 | CT_ITS ---
PROCEDURE INFORMATION: Exam: CTA Chest With Contrast Exam date and time: 10/08/2023 3:05 PM Age: 72 years old Clinical indication: Shortness of breath; Additional info: SOA, HX copd, pe risk FX TECHNIQUE: Imaging protocol: Computed tomographic angiography of the chest with contrast. Exam focused on the arteries. 3D rendering (Not supervised by radiologist): MIP and/or 3D reconstructed images were created by the technologist. Radiation optimization: All CT scans at this facility use at least one of these dose optimization techniques: automated exposure control; mA and/or kV adjustment per patient size (includes targeted exams where dose is matched to clinical indication); or iterative reconstruction. Contrast material: ISOVUE; Contrast volume: 100 ml; Contrast route: INTRAVENOUS (IV); COMPARISON: CR XR CHEST PORTABLE 09/30/2023 5:25 PM FINDINGS: Pulmonary arteries: Normal. No pulmonary emboli. Aorta: Diffuse mural thrombus and atherosclerotic calcification throughout the thoracic aorta. No evidence of aortic dissection. 4.5 cm saccular aneurysm along the anterior margin of the mid aortic arch appears largely thrombosed. Lungs: Unremarkable. No consolidation. No masses. Pleural spaces: Unremarkable. No pneumothorax. No pleural effusion. Heart: Unremarkable. No cardiomegaly. No pericardial effusion. Lymph nodes: Unremarkable. No enlarged lymph nodes. Bones/joints: Orthopedic hardware produces posterior fusion throughout the lower thoracic spine. Severe degenerative disc changes at T6-C7 and T7-8. No acute fracture. 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 Soft tissues: Unremarkable. IMPRESSION: 1. No evidence of pulmonary embolus 2. 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 3. Severe degenerative changes in the midthoracic spine.
--- NOTE | 2023-10-08 14:27 | CT_ITS ---
PROCEDURE INFORMATION: Exam: CTA Abdomen and Pelvis With Contrast Exam date and time: 10/08/2023 3:05 PM Age: 72 years old Clinical indication: Other: Diffuse abdominal pain out of proportion TECHNIQUE: Imaging protocol: Computed tomographic angiography of the abdomen and pelvis with contrast. Exam focused on the arteries. 3D rendering (Not supervised by radiologist): MIP and/or 3D reconstructed images were created by the technologist. Radiation optimization: All CT scans at this facility use at least one of these dose optimization techniques: automated exposure control; mA and/or kV adjustment per patient size (includes targeted exams where dose is matched to clinical indication); or iterative reconstruction. Contrast material: ISOVUE; Contrast volume: 100 ml; Contrast route: INTRAVENOUS (IV); COMPARISON: CT ABDOMEN PELVIS W CON 04/01/2023 6:02 PM FINDINGS: Aorta: Diffuse dense atherosclerotic calcification throughout the aorta and its branches. No evidence of aneurysm or dissection. 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 Mild stenosis of the celiac artery. Inferior mesenteric artery appears patent. Renal arteries: Greater than 50% stenosis of the origin of the bilateral renal arteries. Right iliac arteries: Atherosclerotic calcification producing mild diffuse stenosis. Left iliac arteries: Atherosclerotic calcification producing mild diffuse stenosis. Liver: No mass. Gallbladder and biliary ducts: Gallbladder is surgically absent. No biliary ductal dilation. Pancreas: Unremarkable. No mass. No ductal dilation. Spleen: Unremarkable. No splenomegaly. Adrenal glands: Unremarkable. No mass. Kidneys and ureters: There is a simple 3.9 cm cortical cyst in the lower left kidney. Right kidney appears normal. No hydronephrosis. Stomach and bowel: Unremarkable. No obstruction. No mucosal thickening. Appendix: No evidence of appendicitis. Intraperitoneal space: Unremarkable. No free air. No significant fluid collection. Lymph nodes: Unremarkable. No enlarged lymph nodes. Urinary bladder: Unremarkable. No mass. Reproductive: Uterus is absent. No adnexal abnormality. Bones/joints: Left hip prosthesis in place. Orthopedic hardware produces fusion of the lower spine and bilateral sacroiliac joints. Mild levoscoliosis of the lumbar spine. Partial osseous fusion of the L1 through L4. Grade 1 anterolisthesis of L4. Severe degenerative disc changes throughout the lower thoracic and lumbar spine, most pronounced at L4-L5. No definite acute fracture. Soft tissues: Unremarkable. 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 Other chronic appearing findings as noted.
[2023-10-08 14:39] LABS: Basophils # 0.1 K/mm3 (0-0.2); Basophils % 0.6 % (0.1-2.0); Chloride 96 mmol/L (98-107); Eosinophils # 0.1 K/mm3 (0.0-0.4); Eosinophils % 0.7 % (0.1-12.0); Hematocrit 44.5 % (37.0-47.0); Hemoglobin 13.8 g/dL (12.2-16.2); Lymphocytes # 1.4 K/mm3 (0.7-4.5); Lymphocytes % 16.3 % (10-50); Mean Corpuscular HGB Conc 30.9 g/dL (31.8-35.4); Mean Corpuscular Hemoglobin 32.8 pg (27.0-31.2); Mean Corpuscular Volume 106.1 fl (81-99); Monocytes # 0.5 K/mm3 (0.1-1.0); Monocytes % 6.3 % (1.7-9.3); Neutrophils # 6.5 K/mm3 (1.8-7.8); Neutrophils % 76.2 % (37.0-80.0); Platelet Count 372 K/mm3 (142-424); Potassium 4.1 mmoL/L (3.5-5.1); Red Blood Count 4.19 M/mm3 (4.20-5.40); Red Cell Distribution Width 14.2 % (11.5-17.5); Sodium 132 mmol/L (136-145); White Blood Count 8.5 K/mm3 (4.8-10.8)
[2023-10-08] MEDS: LACTATED RINGERS 1000ML 1,000 ML 999 ML IV (14:40)
[2023-10-08] MEDS: MORPHINE 4MG/ML SYRINGE 4 MG IV (14:40)
[2023-10-08 14:41] LABS: Lipase 79 U/L (23-300)
[2023-10-08] MEDS: ONDANSETRON 4MG/2ML VIAL 4 MG IV (14:41)
[2023-10-08 14:42] LABS: Alanine Aminotransferase 19 U/L (12-78); Albumin/Globulin Ratio 1.2 (1.1-1.8); Alkaline Phosphatase 95 U/L (38-126); Anion Gap 14.1 mEq/L (5-15); Aspartate Amino Transferase 22 U/L (14-36); Bilirubin,Total 0.8 mg/dl (0.2-1.3); Blood Urea Nitrogen 12 mg/dl (7-17); Calcium 8.7 mg/dl (8.4-10.2); Carbon Dioxide 26 mmol/L (22.0-30.0); Creatinine Clearance Estimated 60 mL/min (50-200); Estimated Glomerular Filt Rate 98 ml/min (>60); GFR (African American) 118 ML/MIN (>60); Globulin 3.3 g/dL (1.3-3.2); Glucose 195 mg/dl (74-100); Total Protein,Serum 7.3 g/dl (6.3-8.2)
[2023-10-08 14:44] LABS: Coronavirus 19, PCR Not Detected (NotDetected); Influenza A, PCR Not Detected (NotDetected); Influenza B, PCR Not Detected (NotDetected)
[2023-10-08 14:51] LABS: NT Pro Brain Natriuretic Pep. 2330 pg/mL (0-125)
[2023-10-08 14:57] LABS: Lactic Acid 1.2 mmol/L (0.7-2.1)
--- NOTE | 2023-10-08 15:01 | PC.NURSE ---
Pt gone to RAD via stretcher
[2023-10-08] MEDS: 0.9 % SODIUM CHLORIDE 50 ML VIAL IV (15:07)
[2023-10-08] MEDS: IOPAMIDOL-370 (76%);100ML BOTTLE 95 ML IV (15:07)
[2023-10-08] MEDS: SODIUM CHLORIDE 0.9% 10ML SYR (RAD ONLY) 10 ML IV (15:07)
--- NOTE | 2023-10-08 15:15 | PC.NURSE ---
Pt returned to room from RAD
[2023-10-08 16:40] LABS: Microscopic, Urine URINE MICROSCOPIC (MICROSCOPIC)
[2023-10-08 16:43] LABS: Appearance,Urine CLEAR (Clear); Bilirubin,Urine Negative (Negative); Blood, Urine TRACE-I (Negative); Color,Urine YELLOW (Yellow); Glucose,Urine (UA) Negative (Negative); Ketones,Urine 1+ (Negative); Leukocyte Esterase,Urine Negative (Negative); Nitrate,Urine Negative (Negative); PH,Urine 6.5 (5.0-8.5); Protein,Urine 2+ (Negative)
[2023-10-08 16:57] LABS: Bacteria,Urine Trace /lpf
--- NOTE | 2023-10-08 17:11 | PC.NURSE ---
calling [facility] at this time.
--- NOTE | 2023-10-08 17:58 | PC.NURSE ---
calling [facility] for update at this time.
--- NOTE | 2023-10-08 18:46 | PC.NURSE ---
o/p with at this time.
--- NOTE | 2023-10-08 18:56 | PC.NURSE ---
ON PHONE WITH
--- NOTE | 2023-10-08 19:00 | PC.NURSE ---
[facility] will call back.
--- NOTE | 2023-10-08 19:42 | PC.NURSE ---
[facility] spoke with Dr. Jefferson, issue with imaging will call back again
[2023-10-08] MEDS: METOPROLOL TARTRATE 5MG/5ML VIAL 5 MG IV (20:23)
--- NOTE | 2023-10-08 20:28 | PC.NURSE ---
pt spouse stated that he gave pt one of her home percocets
== END 2023-10-08 21:44 | disposition home or self-care (01) ==
PROVIDERS: Emergency Medicine; Emergency Provider Student in an Organized Health Care Education/Training Program; PCP Nurse Practitioner Family
DX: R10.9 Unspecified abdominal pain (principal); R11.2 Nausea with vomiting, unspecified; E87.1 Hypo-osmolality and hyponatremia; R50.9 Fever, unspecified; R61 Generalized hyperhidrosis; F17.210 Nicotine dependence, cigarettes, uncomplicated; I11.9 Hypertensive heart disease without heart failure; I25.10 Atherosclerotic heart disease of native coronary artery without angina pectoris; K21.9 Gastro-esophageal reflux disease without esophagitis; E11.9 Type 2 diabetes mellitus without complications; Z79.4 Long term (current) use of insulin; Z79.84 Long term (current) use of oral hypoglycemic drugs
CPT/HCPCS: 71275; 74174; 80053; 81001; 83605; 83690; 83880; 85025; 87636; 96361; 96374; 96375; 99285; J2270; J2405; J7120; Q9967

== ENCOUNTER 2023-11-21 13:42 | Inpatient (IN) | payer MEDICARE, SELFPAY ==
[2023-11-21] VITALS (11 sets, daily range): BP systolic 129–223; BP diastolic 56–114; PULSE 55–80; RESP 16–20; TEMP 36.5–36.9; O2SAT 95–100; BMI 27.5
--- NOTE | 2023-11-21 13:47 | ED_ITS ---
Discharge Plan Disposition Patient Disposition: Admitted Chief Complaint: PAIN Clinical Impressions Clinical Impression: Hypertensive emergency, CHF exacerbation Discharge ED Provider: Kaushik Newton General Adult HPI <Luis M Bragg MD - Last Filed: 11/21/23 16:18> General Chief complaint: PAIN Stated complaint: Pain Time Seen by Provider: 11/21/23 13:46 Mode of Arrival: EMS Source of Information: Spouse Limitations: Altered Mental Status History of Present Illness HPI narrative: Patient is a 72-year-old female with history of CVA with resultant deficits of bilateral lower extremities, chronic pain disorder, sacral cubitus ulcer, hypertension, hyperlipidemia. Patient is only alert and oriented x 2, most of history is provided by spouse who is primary caregiver at bedside. He reports that patient has been complaining of intermittent chest pressure and shortness of breath over the last several weeks. This morning she reported I am choking . This was after she ate breakfast, but on EMS arrival, she had a clear airway and was able to speak to them. She began to complain of pain all over , primarily in her tailbone, but also in her bilateral lower extremities and bilateral upper extremities. at bedside denies any recent infectious- like symptoms no vomiting or diarrhea. He reports that he has been compliant with giving her her medicines as they are prescribed. Of note, reports that about a month ago, she was seen for the same complaint at an urgent care treatment center and was prescribed azithromycin for pneumonia. On my independent review of the EMR, she was seen on 10/08/2023 for nausea and vomiting here. 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 She is currently on aspirin and Plavix. Related Data Home Medications ?Medication ?Instructions ?Recorded ?Confirmed baclofen 10 mg tablet 10 mg PO Q8H MUSCLE SPASM 02/09/23 09/05/23 docusate sodium 250 mg capsule 250 mg PO BID Constipation 02/09/23 09/05/23 (Stool Softener) hydroxyzine HCl 10 mg tablet 10 mg PO BID Anxiety 02/09/23 09/05/23 metformin 1,000 mg tablet 1,000 mg PO BIDWMEAL Diabetes 02/09/23 09/05/23 quetiapine 50 mg tablet 50 mg PO HS SLEEP 02/09/23 09/05/23 amlodipine 10 mg tablet 10 mg PO DAILY High Blood Pressure 04/02/23 09/05/23 aspirin 81 mg tablet,delayed 81 mg PO DAILY Heart Disease 04/02/23 09/05/23 release atogepant 60 mg tablet (Qulipta) 60 mg PO DAILY MIGRAINES 04/02/23 09/05/23 empagliflozin 25 mg tablet 25 mg PO DAILY Diabetes 04/02/23 09/05/23 (Jardiance) insulin aspar prt-insulin aspart 12 unit SQ DAILY Diabetes 04/02/23 09/05/23 100 unit/mL (70-30) subcutaneous soln (Novolog Mix 70-30 U-100 Insuln) insulin glargine 100 32 unit SQ DAILY Diabetes 04/02/23 09/05/23 unit-lixisenatide 33 mcg/mL subcutaneous pen (Soliqua 100/33) oxycodone-acetaminophen 10 mg-325 1 tab PO QIDP PRN Moderate Pain 04/02/23 09/05/23 mg tablet (Scale Score 5-6) morphine 15 mg tablet,extended mg PO 08/08/23 09/05/23 release naloxegol 25 mg tablet (Movantik) mg PO 08/08/23 09/05/23 Previous Rx's ?Medication ?Instructions ?Recorded alendronate 70 mg tablet 70 mg PO WEEKLY Osteoporosis 84 12/29/21 days #12 tabs melatonin-pyridoxine HCl (vitamin 1 tab PO HS SLEEP 30 days #30 tabs 12/29/21 B6) 5 mg-10 mg tablet carvedilol 25 mg tablet 25 mg PO BID Hypertension #180 tabs 01/04/23 levofloxacin 750 mg tablet 750 mg PO DAILY 4 days #4 tabs 04/03/23 blood sugar diagnostic (Accu-Chek #100 ea 04/13/23 Guide test strips) paroxetine HCl 20 mg tablet 60 mg (3 x 20 mg) PO HS MOOD 90 05/18/23 days #270 tabs valsartan 320 1 tab PO DAILY High Blood Pressure 05/30/23 mg-hydrochlorothiazide 12.5 mg #90 tabs tablet prochlorperazine maleate 5 mg 5 mg PO TID PRN anxiety or nausea 06/17/23 tablet #60 tabs cholecalciferol (vitamin D3) 1,250 1,250 mcg PO WEEKLY Supplement #12 07/19/23 mcg (50,000 unit) capsule caps gabapentin 600 mg tablet 600 mg PO TID NERVE PAIN #90 tabs 07/19/23 nicotine 21 mg/24 hr daily 1 patch transdermal DAILY #28 ea 08/08/23 transdermal patch clopidogrel 75 mg tablet See Rx Instructions .Route 09/05/23 .COMPLEX #90 tabs ondansetron 4 mg disintegrating 4 mg PO DAILY #30 tabs 09/05/23 tablet sennosides 8.6 mg capsule (senna) 8.6 mg PO BID PRN constipation #30 09/06/23 caps cyanocobalamin (vitamin B-12) 1,000 mcg IM WEEKLY #10 mL 09/26/23 1,000 mcg/mL injection solution benzonatate 100 mg capsule 100 mg PO TIDP PRN Cough #30 caps 09/30/23 levofloxacin 500 mg tablet 500 mg PO DAILY #7 tabs 09/30/23 ondansetron 4 mg disintegrating 4 mg PO Q8H PRN Nausea #8 tabs 09/30/23 tablet atorvastatin 40 mg tablet See Rx Instructions .Route 11/04/23 .COMPLEX #90 tabs ondansetron 4 mg disintegrating 4 mg PO Q8H PRN nausea and 11/17/23 tablet vomiting 4 days #20 tabs Allergies Allergy/AdvReac Type Severity Reaction Status Date / Time cefuroxime [From CEFTIN] Allergy Mild Verified 09/05/23 15:21 codeine Allergy Verified 09/30/23 16:54 [facility] <Luis M Bragg MD - Last Filed: 11/21/23 16:18> [facility] Disclaimer: The information contained in this section may have been updated after the patient was seen, as this information can be updated by other users. Medical History (Updated 11/21/23 @ 17:23 by Kaushik Newton MD) Pain due to onychomycosis of toenails of both feet Hip replacement planned CVA (cerebral vascular accident) Coronary artery disease Renal cyst, left Chest pain HTN (hypertension) Abnormal electrocardiography Gastroesophageal reflux disease Dyspnea Chest pain Neuropathy, cervical (radicular) Left shoulder strain Chronic prescription opiate use Declining functional status Decubitus skin ulcer Hypertensive urgency Callus of foot Onychomycosis Diabetic foot Chronic, continuous use of opioids Hemiplegia affecting right dominant side Gastroenteritis Bronchitis Surgical History (Updated 07/15/24 @ 15:23 by Rafaela Orellana) History of knee replacement History of back surgery Social History Smoking Status: Unknown if ever smoked alcohol intake: former substance use type: denies use current occupational status: retired Travel in the last 8 weeks: Inside the [place] household members: spouse housing: other caffeine: No <Luis M Bragg MD - Last Filed: 11/21/23 16:18> ROS Obtained: Yes unobtainable due to mental status Physical Exam <Luis M Bragg MD - Last Filed: 11/21/23 16:18> General General appearance: in no apparent distress, obese and other (AOx2, chronically ill appearing) Head Head exam: atraumatic and normocephalic Eye Eye exam: Present PERRL and EOMI; Absent scleral icterus ENT ENT exam: Present normal oropharynx and mucous membranes dry Neck Neck exam: Present full ROM and trachea midline Chest Chest inspection: Present normal inspection and symmetric chest wall rise Respiratory Respiratory exam: Present normal lung sounds bilaterally; Absent respiratory distress, wheezes, stridor or accessory muscle use Cardiovascular Cardiovascular exam: Present regular rate and normal rhythm Abdominal Exam Abdominal exam: Present soft; Absent distention or tenderness Extremities Exam Extremities exam: Present other (bilateral lower extremity contractures) Back Exam Back 1 view image: 2 1. stage 1 decubitus ulcer sacral Neurological Exam Neurological exam: Present alert and other (at baseline per . moving bilateral upper extremities, lower extremities paralyzed); Absent oriented X3 Psychiatric Psychiatric exam: Present normal mood Skin Skin exam: Present warm and dry Medical Decision Making <Luis M Bragg MD - Last Filed: 11/21/23 16:18> Medical Records Medical records reviewed: Yes I reviewed the patient's medical records. Screening: Per USPSTF and CDC recommendations, given the prevalence of disease in our region, it is our hospital?s policy to screen for HIV and viral Hepatitis for all patients aged 18 and over and those with ongoing risk factors. Lm Inquiry Pt receiving controlled substance: No Vital Signs: 11/21/23 13:42 11/21/23 14:32 11/21/23 15:01 Temperature 97.9 F Temperature Source Oral Pulse Rate 76 80 Pulse Rate [Radial] 56 L Respiratory Rate 16 Blood Pressure 151/114 H 223/85 H Blood Pressure [Right Arm] 165/85 H Blood Pressure Mean 126 131 Blood Pressure Mean [Right Arm] 111 Blood Pressure Source [Right Arm] Automatic Cuff Blood Pressure Position [Right Arm] Sitting 02 Sat by Pulse Oximetry 98 96 95 Oxygen Delivery Method Room Air 11/21/23 15:31 11/21/23 16:00 11/21/23 16:30 Temperature Temperature Source Pulse Rate 69 55 L 56 L Pulse Rate [Radial] Respiratory Rate 18 18 18 Blood Pressure 188/88 H 198/75 H 186/71 H Blood Pressure [Right Arm] Blood Pressure Mean 138 Blood Pressure Mean [Right Arm] Blood Pressure Source [Right Arm] Blood Pressure Position [Right Arm] 02 Sat by Pulse Oximetry 98 99 100 Oxygen Delivery Method Room Air Room Air Room Air 11/21/23 17:00 Temperature Temperature Source Pulse Rate 59 L Pulse Rate [Radial] Respiratory Rate 20 Blood Pressure 212/68 H Blood Pressure [Right Arm] Blood Pressure Mean Blood Pressure Mean [Right Arm] Blood Pressure Source [Right Arm] Blood Pressure Position [Right Arm] 02 Sat by Pulse Oximetry 100 Oxygen Delivery Method Room Air Lab Data Lab Results 11/21/23 13:43: WBC 8.9, RBC 4.37, Hgb 14.8, Hct 46.7, MCV 106.7 H, MCH 33.9 H, MCHC 31.8, RDW 14.8, Plt Count 330, MPV 8.7, Neut % (Auto) 62.7, Lymph % (Auto) 27.6, [place] % (Auto) 7.2, Eos % (Auto) 1.3, Baso % (Auto) 1.2, Neut # (Auto) 5.6, Lymph # (Auto) 2.5, [place] # (Auto) 0.6, Eos # (Auto) 0.1, Baso # (Auto) 0.1, S odium 135 L, Potassium 3.9, Chloride 100, Carbon Dioxide 26, Anion Gap 12.9, BUN 24 H, Creatinine 0.80, Estimated Creat Clear 62, Estimated GFR 70, Est GFR ( Amer) 85, Glucose 157 H, Calcium 9.6, Total Bilirubin 0.7, AST 27, ALT 16, Alkaline Phosphatase 91, Troponin I 0.06 H, NT-Pro-B Natriuret Pep 731 H, Total Protein 7.5, Albumin 4.2, Globulin 3.3 H, Albumin/Globulin Ratio 1.3 11/21/23 14:00: VBG pH 7.37, VBG pCO2 42.1, VBG pO2 44.9 H, VBG HCO3 23.8, VBG Total CO2 25.1, VBG O2 Saturation 78.3 H, VBG Base Excess -1.4, VBG Lactic Acid 1.9 11/21/23 16:30: Troponin I 0.05 H 11/21/23 13:43 11/21/23 13:43 Orders (Tests/Meds): ED MEDICATIONS Generic Name Dose Route Start Last Admin Trade Name Freq PRN Reason Stop Dose Admin Amlodipine Besylate 10 mg 11/22/23 09:00 Amlodipine 10mg Tablet PO 12/22/23 08:59 DAILY DANITZA Carvedilol 25 mg 11/21/23 21:00 Carvedilol 25mg Tablet PO 12/21/23 20:59 BID DANITZA Magnesium Sulfate 2 gm in 50 mls @ 50 mls/hr 11/21/23 16:36 Magnesium Sulfate 2gm/50ml Premix IV 11/21/23 17:35 ONCE ONE Irbesartan 300 mg 11/22/23 09:00 Irbesartan 300mg Tablet PO 12/22/23 08:59 DAILY DANITZA Discontinued Medications Generic Name Dose Route Start Last Admin Trade Name Freq PRN Reason Stop Dose Admin Furosemide 40 mg 11/21/23 16:28 11/21/23 16:37 Furosemide 40mg/4ml Vial IV 11/21/23 16:29 Not Given ONCE ONE Furosemide 60 mg 11/21/23 16:31 11/21/23 16:35 Furosemide 40mg/4ml Vial IV 11/21/23 16:32 60 mg ONCE ONE Administration Lactated Ringer's 500 mls @ 999 mls/hr 11/21/23 14:01 11/21/23 14:17 Lactated Ringer's 500ml IV 11/21/23 14:31 999 mls/hr .Q31M ONE Administration Iopamidol 80 ml 11/21/23 15:54 11/21/23 15:54 Iopamidol-370 (76%);100ml Bottle IV 11/21/23 15:55 80 ml ONCE ONE Administration Irbesartan 150 mg 11/21/23 17:09 Irbesartan 150mg Tab PO 11/21/23 17:10 ONCE ONE Nitroglycerin 1 gm 11/21/23 16:27 11/21/23 16:35 Nitroglycerin 1 Gm Ointment TD 11/21/23 16:28 1 gm ONCE ONE Administration Oxycodone/Acetaminophen 1 each 11/21/23 14:25 11/21/23 14:38 Oxycodone 10mg W/Apap 325mg Tablet PO 11/21/23 14:26 1 each ONCE ONE Administration Sodium Chloride 10 ml 11/21/23 15:54 11/21/23 15:54 Sodium Chloride 0.9% 10ml Syr (Rad Only) IV 11/21/23 15:55 10 ml ONCE ONE Administration Sodium Chloride 50 ml 11/21/23 15:54 11/21/23 15:54 0.9 % Sodium Chloride 50 Ml Vial IV 11/21/23 15:55 50 ml ONCE ONE Administration ORDERS Category Date Time Status CT angio chest - dissection Stat Cat Scan 11/21/23 15:29 Completed Cardiology Consult [Consult to Cardiology] [CONS] Cons 11/22/23 07:00 Active Routine XR chest portable Stat Exams 11/21/23 14:00 Completed Complete Blood Count Auto Diff AMLAB Lab 11/22/23 06:00 Ordered Complete Blood Count Auto Diff Stat Lab 11/21/23 13:43 Completed Comprehensive Metabolic Panel AMLAB Lab 11/22/23 06:00 Ordered Comprehensive Metabolic Panel Stat Lab 11/21/23 13:43 Completed HIV (1&2) Antibody Rapid Stat Lab 11/21/23 13:49 Ordered Hep C Ab with Reflex to RNA Stat Lab 11/21/23 13:49 Ordered Magnesium AMLAB Lab 11/22/23 06:00 Ordered NT Pro Brain Natriuretic Pep. Stat Lab 11/21/23 13:43 Completed Troponin I Q3H Lab 11/21/23 16:30 Completed Troponin I Q3H Lab 11/21/23 20:15 Ordered Troponin I Stat Lab 11/21/23 13:43 Completed Urinalysis and Microscopic Stat Lab 11/21/23 14:00 Ordered Venous Blood Gas Stat RT 11/21/23 14:00 Completed ECG Data Tracing #1: I reviewed this ECG and interpreted as documented below: Independently interpreted by myself demonstrate sinus bradycardia with a left bundle branch block, no acute ischemic ST changes when applying Sgarbossa criteria. Medical Decision Narrative: In summary, this 72-year-old female presents to the emergency department today with shortness of breath. On initial evaluation patient is afebrile, hypertensive with systolics in the 180s, otherwise stable. Differential diagnosis includes but is not limited to ACS, AL, pneumothorax, COPD exacerbation, pneumonia, urinary tract infection. Based on these concerns, I ordered CBC, CMP, VBG, chest x-ray, urinalysis. I reviewed prior records including as listed above in the HPI. ECG personally interpreted demonstrates as listed above. Patient received 500 cc of LR given dry mucous membrane appearance for treatment. Labs personally reviewed demonstrate no significant leukocytosis, no evidence of anemia, no significant electrolyte derangement, initial troponin elevated at 0.06, will await delta, creatinine within normal limits, VBG normal limits. XR personally interpreted demonstrates enlarged mediastinum, consistent when compared with prior CT from last month. On reassessment patient with continued pain in her tailbone primarily, no longer reports shortness of breath on my reassessment, felt reasonable to administer her home Percocet.. Patient was handed off to oncoming provider on shift for definitive management and disposition. Please see Transfer of Care information completed by oncoming provider for further management and ultimate disposition. Patient's prescriptions were reviewed and []. Admission as considered and []. Of note, social determinants of health include []. [At this time it was felt that the patient was safe to be discharged home. The patient was in agreement with this plan. The patient was given strict return precautions prior to being discharged from the emergency department.] <Kaushik Newton MD - Last Filed: 11/21/23 17:23> Vital Signs: 11/21/23 13:42 11/21/23 14:32 11/21/23 15:01 Temperature 97.9 F Temperature Source Oral Pulse Rate 76 80 Pulse Rate [Radial] 56 L Respiratory Rate 16 Blood Pressure 151/114 H 223/85 H Blood Pressure [Right Arm] 165/85 H Blood Pressure Mean 126 131 Blood Pressure Mean [Right Arm] 111 Blood Pressure Source [Right Arm] Automatic Cuff Blood Pressure Position [Right Arm] Sitting 02 Sat by Pulse Oximetry 98 96 95 Oxygen Delivery Method Room Air 11/21/23 15:31 11/21/23 16:00 11/21/23 16:30 Temperature Temperature Source Pulse Rate 69 55 L 56 L Pulse Rate [Radial] Respiratory Rate 18 18 18 Blood Pressure 188/88 H 198/75 H 186/71 H Blood Pressure [Right Arm] Blood Pressure Mean 138 Blood Pressure Mean [Right Arm] Blood Pressure Source [Right Arm] Blood Pressure Position [Right Arm] 02 Sat by Pulse Oximetry 98 99 100 Oxygen Delivery Method Room Air Room Air Room Air 11/21/23 17:00 Temperature Temperature Source Pulse Rate 59 L Pulse Rate [Radial] Respiratory Rate 20 Blood Pressure 212/68 H Blood Pressure [Right Arm] Blood Pressure Mean Blood Pressure Mean [Right Arm] Blood Pressure Source [Right Arm] Blood Pressure Position [Right Arm] 02 Sat by Pulse Oximetry 100 Oxygen Delivery Method Room Air Lab Data Lab Results 11/21/23 13:43: WBC 8.9, RBC 4.37, Hgb 14.8, Hct 46.7, MCV 106.7 H, MCH 33.9 H, MCHC 31.8, RDW 14.8, Plt Count 330, MPV 8.7, Neut % (Auto) 62.7, Lymph % (Auto) 27.6, [place] % (Auto) 7.2, Eos % (Auto) 1.3, Baso % (Auto) 1.2, Neut # (Auto) 5.6, Lymph # (Auto) 2.5, [place] # (Auto) 0.6, Eos # (Auto) 0.1, Baso # (Auto) 0.1, S odium 135 L, Potassium 3.9, Chloride 100, Carbon Dioxide 26, Anion Gap 12.9, BUN 24 H, Creatinine 0.80, Estimated Creat Clear 62, Estimated GFR 70, Est GFR ( Amer) 85, Glucose 157 H, Calcium 9.6, Total Bilirubin 0.7, AST 27, ALT 16, Alkaline Phosphatase 91, Troponin I 0.06 H, NT-Pro-B Natriuret Pep 731 H, Total Protein 7.5, Albumin 4.2, Globulin 3.3 H, Albumin/Globulin Ratio 1.3 11/21/23 14:00: VBG pH 7.37, VBG pCO2 42.1, VBG pO2 44.9 H, VBG HCO3 23.8, VBG Total CO2 25.1, VBG O2 Saturation 78.3 H, VBG Base Excess -1.4, VBG Lactic Acid 1.9 11/21/23 16:30: Troponin I 0.05 H Orders (Tests/Meds): ED MEDICATIONS Generic Name Dose Route Start Last Admin Trade Name Raymond PRN Reason Stop Dose Admin Amlodipine Besylate 10 mg 11/22/23 09:00 Amlodipine 10mg Tablet PO 12/22/23 08:59 DAILY DANITZA Carvedilol 25 mg 11/21/23 21:00 Carvedilol 25mg Tablet PO 12/21/23 20:59 BID DANITZA Magnesium Sulfate 2 gm in 50 mls @ 50 mls/hr 11/21/23 16:36 Magnesium Sulfate 2gm/50ml Premix IV 11/21/23 17:35 ONCE ONE Irbesartan 300 mg 11/22/23 09:00 Irbesartan 300mg Tablet PO 12/22/23 08:59 DAILY DANITZA Discontinued Medications Generic Name Dose Route Start Last Admin Trade Name Raymond PRN Reason Stop Dose Admin Furosemide 40 mg 11/21/23 16:28 11/21/23 16:37 Furosemide 40mg/4ml Vial IV 11/21/23 16:29 Not Given ONCE ONE Furosemide 60 mg 11/21/23 16:31 11/21/23 16:35 Furosemide 40mg/4ml Vial IV 11/21/23 16:32 60 mg ONCE ONE Administration Lactated Ringer's 500 mls @ 999 mls/hr 11/21/23 14:01 11/21/23 14:17 Lactated Ringer's 500ml IV 11/21/23 14:31 999 mls/hr .Q31M ONE Administration Iopamidol 80 ml 11/21/23 15:54 11/21/23 15:54 Iopamidol-370 (76%);100ml Bottle IV 11/21/23 15:55 80 ml ONCE ONE Administration Irbesartan 150 mg 11/21/23 17:09 Irbesartan 150mg Tab PO 11/21/23 17:10 ONCE ONE Nitroglycerin 1 gm 11/21/23 16:27 11/21/23 16:35 Nitroglycerin 1 Gm Ointment TD 11/21/23 16:28 1 gm ONCE ONE Administration Oxycodone/Acetaminophen 1 each 11/21/23 14:25 11/21/23 14:38 Oxycodone 10mg W/Apap 325mg Tablet PO 11/21/23 14:26 1 each ONCE ONE Administration Sodium Chloride 10 ml 11/21/23 15:54 11/21/23 15:54 Sodium Chloride 0.9% 10ml Syr (Rad Only) IV 11/21/23 15:55 10 ml ONCE ONE Administration Sodium Chloride 50 ml 11/21/23 15:54 11/21/23 15:54 0.9 % Sodium Chloride 50 Ml Vial IV 11/21/23 15:55 50 ml ONCE ONE Administration ORDERS Category Date Time Status CT angio chest - dissection Stat Cat Scan 11/21/23 15:29 Completed Cardiology Consult [Consult to Cardiology] [CONS] Cons 11/22/23 07:00 Active Routine XR chest portable Stat Exams 11/21/23 14:00 Completed Complete Blood Count Auto Diff AMLAB Lab 11/22/23 06:00 Ordered Complete Blood Count Auto Diff Stat Lab 11/21/23 13:43 Completed Comprehensive Metabolic Panel AMLAB Lab 11/22/23 06:00 Ordered Comprehensive Metabolic Panel Stat Lab 11/21/23 13:43 Completed HIV (1&2) Antibody Rapid Stat Lab 11/21/23 13:49 Ordered Hep C Ab with Reflex to RNA Stat Lab 11/21/23 13:49 Ordered Magnesium AMLAB Lab 11/22/23 06:00 Ordered NT Pro Brain Natriuretic Pep. Stat Lab 11/21/23 13:43 Completed Troponin I Q3H Lab 11/21/23 16:30 Completed Troponin I Q3H Lab 11/21/23 20:15 Ordered Troponin I Stat Lab 11/21/23 13:43 Completed Urinalysis and Microscopic Stat Lab 11/21/23 14:00 Ordered Venous Blood Gas Stat RT 11/21/23 14:00 Completed Medical Decision Narrative: In summary, this 72-year-old female presents to the emergency department today with shortness of breath. On initial evaluation patient is afebrile, hypertensive with systolics in the 180s, otherwise stable. Differential diagnosis includes but is not limited to ACS, AL, pneumothorax, COPD exacerbation, pneumonia, urinary tract infection. Based on these concerns, I ordered CBC, CMP, VBG, chest x-ray, urinalysis. I reviewed prior records including as listed above in the HPI. ECG personally interpreted demonstrates as listed above. Patient received 500 cc of LR given dry mucous membrane appearance for treatment. Labs personally reviewed demonstrate no significant leukocytosis, no evidence of anemia, no significant electrolyte derangement, initial troponin elevated at 0.06, will await delta, creatinine within normal limits, VBG normal limits. XR personally interpreted demonstrates enlarged mediastinum, consistent when compared with prior CT from last month. Lamar: I assumed primary responsibility for this patient after signout from previous physician. On my independent evaluation, patient alert, not oriented. Unable to provide adequate history. Patient hypertensive, states she feels short of breath. Lungs are clear. Patient does have sacral decubitus ulcer stage II. Independent interpretation of workup demonstrates CBC nonactionable, but elevated MCV which likely represents vitamin deficiency. Chemistry and significant. Troponin elevated 0.06, BNP elevated at 731, much lower than her previous about a month prior, but still moderately elevated. Patient given Nitropaste and 60 mg IV Lasix. EKG independently interpreted and patient has sinus bradycardia 54 beats a minute with no acute ischemic change. Left bundle branch block with left axis deviation. Sgarbossa negative. MN 168, QRS 139, QTc 482, given magnesium for this. X-ray with wide mediastinum, no acute edema. CT angiogram of the chest was ordered given history of thoracic aortic aneurysm and this demonstrated no acute PE, dissection, or other acute abnormality on independent interpretation. See radiology read for further interpretation. After Fletcher catheter placed, patient urinating and diuresing. Hospital medicine was contacted and case was discussed at length for admission for hypertensive emergency and CHF exacerbation, graciously excepted admission. Because patient high risk for clinical decompensation, deemed appropriate for inpatient admission. Results were relayed to patient who voiced understanding and patient was agreeable to inpatient admission and management. Patient was admitted to the hospital for further definitive management. Critical Care <Kaushik Newton MD - Last Filed: 11/21/23 17:23> Critical Care Time Critical Care Time: Yes (CV) Attestation: On 11/21/23, the high probability of a clinically significant, sudden or life threatening deterioration of the following system(s) required my full and direct attention, intervention and personal management. The time I documented below is in addition to time spent performing reported procedures but includes the following listed in this critical care notation. Total Time Total Critical Care Time: 35
--- NOTE | 2023-11-21 13:51 | PC.NURSE ---
Dr. Bragg at bedside for pt eval
--- NOTE | 2023-11-21 14:00 | XR_ITS ---
FINAL REPORT CLINICAL HISTORY: SOA COMPARISON: 09/30/2023 FINDINGS: 2 views of the chest were obtained . The heart is mildly enlarged. The mediastinum is within normal limits. Chronic changes are seen at the lung bases. The lungs are otherwise clear. There is no pneumothorax. Osseous structures demonstrate posterior fusion hardware bridging the thoracic spine. IMPRESSION: No acute cardiopulmonary process. Reviewed, Interpreted and Dictated by Corwin Peña MD Transcribed by Sana Kenney Authenticated and [facility]
[2023-11-21 14:11] LABS: Albumin Level 4.2 g/dl (3.5-5.0); Chloride 100 mmol/L (98-107); Sodium 135 mmol/L (136-145)
[2023-11-21 14:12] LABS: Potassium 3.9 mmoL/L (3.5-5.1)
[2023-11-21 14:14] LABS: Alanine Aminotransferase 16 U/L (12-78); Albumin/Globulin Ratio 1.3 (1.1-1.8); Alkaline Phosphatase 91 U/L (38-126); Anion Gap 12.9 mEq/L (5-15); Aspartate Amino Transferase 27 U/L (14-36); Bilirubin,Total 0.7 mg/dl (0.2-1.3); Blood Urea Nitrogen 24 mg/dl (7-17); Carbon Dioxide 26 mmol/L (22.0-30.0); Creatinine Clearance Estimated 62 mL/min (50-200); Estimated Glomerular Filt Rate 70 ml/min (>60); GFR (African American) 85 ML/MIN (>60); Globulin 3.3 g/dL (1.3-3.2); Total Protein,Serum 7.5 g/dl (6.3-8.2)
[2023-11-21 14:15] LABS: Calcium 9.6 mg/dl (8.4-10.2); Glucose 157 mg/dl (74-100)
[2023-11-21] MEDS: RINGERS SOLUTION,LACTATED 500 ML 999 ML IV (14:17)
[2023-11-21 14:24] LABS: NT Pro Brain Natriuretic Pep. 731 pg/mL (0-125)
[2023-11-21 14:27] LABS: Troponin I 0.06 ng/ml (0.00-0.034)
[2023-11-21 14:31] LABS: Basophils # 0.1 K/mm3 (0-0.2); Basophils % 1.2 % (0.1-2.0); Eosinophils # 0.1 K/mm3 (0.0-0.4); Eosinophils % 1.3 % (0.1-12.0); Hematocrit 46.7 % (37.0-47.0); Hemoglobin 14.8 g/dL (12.2-16.2); Lymphocytes # 2.5 K/mm3 (0.7-4.5); Lymphocytes % 27.6 % (10-50); Mean Corpuscular HGB Conc 31.8 g/dL (31.8-35.4); Mean Corpuscular Hemoglobin 33.9 pg (27.0-31.2); Mean Corpuscular Volume 106.7 fl (81-99); Mean Platelet Volume 8.7 fl (7.4-10.4); Monocytes # 0.6 K/mm3 (0.1-1.0); Monocytes % 7.2 % (1.7-9.3); Neutrophils # 5.6 K/mm3 (1.8-7.8); Neutrophils % 62.7 % (37.0-80.0); Platelet Count 330 K/mm3 (142-424); Red Blood Count 4.37 M/mm3 (4.20-5.40); Red Cell Distribution Width 14.8 % (11.5-17.5); White Blood Count 8.9 K/mm3 (4.8-10.8)
[2023-11-21] MEDS: OXYCODONE 10MG W/APAP 325MG TABLET 1 EACH PO ×2 (14:38→19:16)
[2023-11-21 14:45] LABS: Lactate Venous 1.9 mmol/L (0.4-2.0); VBG Base Excess -1.4 mmol/L (-2.4-2.3); VBG HCO3 23.8 mmol/L (23-30); VBG Oxygen Saturation 78.3 % (50-70); VBG PCO2 42.1 mmol/L (35-51); VBG PH 7.37 mmol/L (7.31-7.41); VBG PO2 44.9 mmol/L (28-40); VBG Total CO2 25.1 mmol/L (23-27)
--- NOTE | 2023-11-21 15:22 | ECG_ITS ---
APPROVED REPORT Exam: Resting ECG HR:54 bpm ECG Measurements Heart Rate 54 AXES AK 168 P 38 QRSd 139 QRS -35 QT 495 T 147 QTc 482 Conclusion SINUS BRADYCARDIA WITH SINUS ARRHYTHMIA LEFT AXIS DEVIATION [QRS AXIS < -30] LEFT BUNDLE BRANCH BLOCK [120+ ms QRS DURATION, 80+ ms Q/S IN V1/V2, 85+ ms R IN I/aVL/V5/V6] ABNORMAL ECG Electronically signed by : IMELDA VILLA, 11/22/2023 07:29:39
--- NOTE | 2023-11-21 15:29 | CT_ITS ---
FINAL REPORT TECHNIQUE: Postcontrast axial images of the chest were performed in a CTA protocol. This study was performed with techniques to keep radiation doses as low as reasonably achievable, (ALARA). Individualized dose reduction technique using automated exposure control or adjustment of mA and/or kV according to the patient's size were employed. CLINICAL HISTORY: smothered feeling, rule out PE vs aortic pathology COMPARISON: 10/08/2023 FINDINGS: The heart is normal in size. No adenopathy is identified. No pleural or pericardial effusion is identified. There is moderate mural thrombus throughout the descending thoracic aorta which is stable. 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 This is best visualized on image 24 of series 5. There is no filling defect to suggest pulmonary embolism. There are stable pulmonary nodules in the posterior left upper lobe. The images of the upper abdomen are unremarkable. Streak artifact is noted from fusion hardware. IMPRESSION: No evidence for PE on this exam. Stable thoracic saccular aneurysm as above. Mural thrombus of the descending thoracic aorta. Reviewed, Interpreted and Dictated by Corwin Peña MD Transcribed by Sana Kenney Authenticated and [facility]
[2023-11-21] MEDS: IOPAMIDOL-370 (76%);100ML BOTTLE 80 ML IV (15:54)
[2023-11-21] MEDS: 0.9 % SODIUM CHLORIDE 50 ML VIAL IV (15:54)
[2023-11-21] MEDS: SODIUM CHLORIDE 0.9% 10ML SYR (RAD ONLY) 10 ML IV (15:54)
[2023-11-21] MEDS: FUROSEMIDE 40MG/4ML VIAL 60 MG IV (16:35)
[2023-11-21] MEDS: NITROGLYCERIN 1 GM OINTMENT TD (16:35)
--- NOTE | 2023-11-21 16:38 | PC.NURSE ---
DR SEGUNDO UPDATING FAMILY
[2023-11-21 17:05] LABS: Troponin I 0.05 ng/ml (0.00-0.034)
--- NOTE | 2023-11-21 17:08 | EXP.HP ---
History of Present Illness *Admission Date: 11/21/23 *Reason for visit:: choking *History of present illness: Ms. Agosto is a 72-year-old female with history of CVA with resultant deficits of bilateral upper and lower extremities, chronic pain, sacral decubitus wound, hypertension, hyperlipidemia. At home today stated to her that she was choking. He was concerned she was having a hard time breathing. EMS was contacted and she was brought to the ER for her multiple complaints. Did not require oxygen in transport. Also was complaining of pain all over, primarily in her tailbone. My bottom is hurting . Afebrile. Blood pressure severely elevated in the ER. reports that she has not been taking her valsartan/HCTZ due to concerns causing her headaches. Patient otherwise at baseline level of function. Given concern for mild CHF exacerbation, malignant hypertension with systolics above 200, medicine consulted for admission and further management. Of note, reports that about a month ago, she was seen for the same complaint at an urgent care treatment center and was prescribed azithromycin for pneumonia. On arrival to the floor, patient in no acute distress. Catheter in place with clear urine after receiving diuretics in the ER. Blood pressure showing some improvement with systolic of 160. Stable on room air. [facility] Disclaimer: The information contained in this section may have been updated after the patient was seen, as this information can be updated by other users. Medical History (Updated 11/21/23 @ 18:46 by Santhosh Robertson MD) CVA (cerebral vascular accident) Pain due to onychomycosis of toenails of both feet Hip replacement planned Coronary artery disease Renal cyst, left Chest pain HTN (hypertension) Abnormal electrocardiography Gastroesophageal reflux disease Dyspnea Chest pain Neuropathy, cervical (radicular) Left shoulder strain Chronic prescription opiate use Declining functional status Decubitus skin ulcer Hypertensive urgency Callus of foot Onychomycosis Diabetic foot Chronic, continuous use of opioids Hemiplegia affecting right dominant side Gastroenteritis Bronchitis Surgical History History of knee replacement History of back surgery Social History Smoking Status: Unknown if ever smoked alcohol intake: former substance use type: denies use current occupational status: retired Travel in the last 8 weeks: Inside the [place] household members: spouse housing: other caffeine: No Review of Systems Review of Systems Review of systems (narrative): 14 point review of systems performed, pertinent positives and negatives as per HPI Meds Home Medications and Allergies Home Medications ?Medication ?Instructions ?Recorded ?Confirmed ?Type alendronate 70 mg tablet 70 mg PO WEEKLY Osteoporosis 84 12/29/21 09/05/23 Rx days #12 tabs melatonin-pyridoxine HCl (vitamin 1 tab PO HS SLEEP 30 days #30 tabs 12/29/21 09/05/23 Rx B6) 5 mg-10 mg tablet carvedilol 25 mg tablet 25 mg PO BID Hypertension #180 tabs 01/04/23 09/05/23 Rx baclofen 10 mg tablet 10 mg PO Q8H MUSCLE SPASM 02/09/23 09/05/23 History docusate sodium 250 mg capsule 250 mg PO BID Constipation 02/09/23 09/05/23 History (Stool Softener) hydroxyzine HCl 10 mg tablet 10 mg PO BID Anxiety 02/09/23 09/05/23 History metformin 1,000 mg tablet 1,000 mg PO BIDWMEAL Diabetes 02/09/23 09/05/23 History quetiapine 50 mg tablet 50 mg PO HS SLEEP 02/09/23 09/05/23 History amlodipine 10 mg tablet 10 mg PO DAILY High Blood Pressure 04/02/23 09/05/23 History aspirin 81 mg tablet,delayed 81 mg PO DAILY Heart Disease 04/02/23 09/05/23 History release atogepant 60 mg tablet (Qulipta) 60 mg PO DAILY MIGRAINES 04/02/23 09/05/23 History empagliflozin 25 mg tablet 25 mg PO DAILY Diabetes 04/02/23 09/05/23 History (Jardiance) insulin aspar prt-insulin aspart 12 unit SQ DAILY Diabetes 04/02/23 09/05/23 History 100 unit/mL (70-30) subcutaneous soln (Novolog Mix 70-30 U-100 Insuln) insulin glargine 100 32 unit SQ DAILY Diabetes 04/02/23 09/05/23 History unit-lixisenatide 33 mcg/mL subcutaneous pen (Soliqua 100/33) oxycodone-acetaminophen 10 mg-325 1 tab PO QIDP PRN Moderate Pain 04/02/23 09/05/23 History mg tablet (Scale Score 5-6) blood sugar diagnostic (Accu-Chek #100 ea 04/13/23 09/05/23 Rx Guide test strips) paroxetine HCl 20 mg tablet 60 mg (3 x 20 mg) PO HS MOOD 90 05/18/23 09/05/23 Rx days #270 tabs valsartan 320 1 tab PO DAILY High Blood Pressure 05/30/23 09/05/23 Rx mg-hydrochlorothiazide 12.5 mg #90 tabs tablet prochlorperazine maleate 5 mg 5 mg PO TID PRN anxiety or nausea 06/17/23 09/05/23 Rx tablet #60 tabs cholecalciferol (vitamin D3) 1,250 1,250 mcg PO WEEKLY Supplement #12 07/19/23 09/05/23 Rx mcg (50,000 unit) capsule caps gabapentin 600 mg tablet 600 mg PO TID NERVE PAIN #90 tabs 07/19/23 09/05/23 Rx morphine 15 mg tablet,extended mg PO 08/08/23 09/05/23 History release naloxegol 25 mg tablet (Movantik) mg PO 08/08/23 09/05/23 History nicotine 21 mg/24 hr daily 1 patch transdermal DAILY #28 ea 08/08/23 09/05/23 Rx transdermal patch clopidogrel 75 mg tablet See Rx Instructions .Route 09/05/23 09/05/23 Rx .COMPLEX #90 tabs sennosides 8.6 mg capsule (senna) 8.6 mg PO BID PRN constipation #30 09/06/23 Rx caps benzonatate 100 mg capsule 100 mg PO TIDP PRN Cough #30 caps 09/30/23 Rx atorvastatin 40 mg tablet See Rx Instructions .Route 11/04/23 Rx .COMPLEX #90 tabs New Prescriptions to Start Prescriptions: Allergies Allergy/AdvReac Type Severity Reaction Status Date / Time cefuroxime [From CEFTIN] Allergy Mild Verified 09/05/23 15:21 codeine Allergy Verified 09/30/23 16:54 Exam Data for Last 24 hours Vital signs and Labs for Last 24 Hours: Temp Pulse Resp BP Pulse Ox O2 Del Method 97.9 F 59 L 20 212/68 H 100 Room Air 11/21/23 13:42 11/21/23 17:00 11/21/23 17:00 11/21/23 17:00 11/21/23 17:00 11/21/23 17:00 Laboratory Results - last 24 hr 11/21/23 13:43: WBC 8.9, RBC 4.37, Hgb 14.8, Hct 46.7, MCV 106.7 H, MCH 33.9 H, MCHC 31.8, RDW 14.8, Plt Count 330, MPV 8.7, Neut % (Auto) 62.7, Lymph % (Auto) 27.6, Bates % (Auto) 7.2, Eos % (Auto) 1.3, Baso % (Auto) 1.2, Neut # (Auto) 5.6, Lymph # (Auto) 2.5, Bates # (Auto) 0.6, Eos # (Auto) 0.1, Baso # (Auto) 0.1, Sodium 135 L, Potassium 3.9, Chloride 100, Carbon Dioxide 26, Anion Gap 12.9, BUN 24 H, Creatinine 0.80, Estimated Creat Clear 62, Estimated GFR 70, Est GFR ( Amer) 85, Glucose 157 H, Calcium 9.6, Total Bilirubin 0.7, AST 27, ALT 16, Alkaline Phosphatase 91, Troponin I 0.06 H, NT-Pro-B Natriuret Pep 731 H, Total Protein 7.5, Albumin 4.2, Globulin 3.3 H, Albumin/Globulin Ratio 1.3 11/21/23 14:00: VBG pH 7.37, VBG pCO2 42.1, VBG pO2 44.9 H, VBG HCO3 23.8, VBG Total CO2 25.1, VBG O2 Saturation 78.3 H, VBG Base Excess -1.4, VBG Lactic Acid 1.9 11/21/23 16:30: Troponin I 0.05 H I & O for Last 24 hours: Intake & Output 11/18/23 11/19/23 11/20/23 11/21/23 23:59 23:59 23:59 23:59 Weight 79.379 kg Constitutional Constitutional: no acute distress, average body habitus, chronically ill appearing and cooperative *Routine HEENT Exam Head: Present normocephalic Eye: Present EOMI ENT: Present mucous membranes moist Comments: Edentulous *Routine Neck Exam Neck: Present supple; Absent carotid bruit *Routine Respiratory Exam Respiratory: Present CTA bilaterally; Absent respiratory distress, rhonchi, wheezes or crackles *Routine Cardiovascular Exam Cardiovascular: Present RRR *Routine Abdominal Exam Abdominal: Present soft *Routine Rectal Exam Rectal:: deferred *Routine Genitalia Exam Genitalia:: deferred Comment:: Fletcher in place *Routine Extremities Exam Extremities: Present pulses intact; Absent cyanosis, normal capillary refill or calf tenderness Comments: Contracture in both upper and lower extremities. Functionally quadriplegic *Routine Skin Exam Skin: Present intact; Absent jaundice Comments: Blanchable red spot on sacrum *Routine Neurological Exam Neurological: Present alert, motor deficit and hearing grossly intact; Absent moving all extremities, normal tone or normal speech Comments: Significant residual deficits from previous CVAs. Contractures of upper and lower extremities. Assessment and Plan *Assessment and plan (1) CHF exacerbation: Status: Acute Category: Medical Code(s): I50.9 - Heart failure, unspecified (2) Hypertensive emergency: Status: Acute Category: Medical Code(s): I16.1 - Hypertensive emergency (3) PAD (peripheral artery disease): Status: Acute Category: Medical Code(s): I73.9 - Peripheral vascular disease, unspecified (4) Anxiety: Status: Acute Category: Medical Code(s): F41.9 - Anxiety disorder, unspecified (5) Coronary artery disease: Status: Chronic Qualifiers: Associated angina: unspecified whether angina present Coronary Disease-Associated Artery/Lesion type: unspecified vessel or lesion type [place] vs. transplanted heart: [place] heart Qualified Code(s): I25.10 - Atherosclerotic heart disease of [place] coronary artery without angina pectoris Category: Medical Code(s): I25.10 - Atherosclerotic heart disease of [place] coronary artery without angina pectoris (6) PVD (peripheral vascular disease): Status: Acute Category: Medical Code(s): I73.9 - Peripheral vascular disease, unspecified (7) HTN (hypertension): Status: Acute Qualifiers: Hypertension type: unspecified Qualified Code(s): I10 - Essential (primary) hypertension Category: Medical Code(s): I10 - Essential (primary) hypertension (8) Diabetes mellitus with diabetic neuropathy: Status: Chronic Qualifiers: Diabetes mellitus senior care insulin use: with senior care use Diabetes mellitus type: type 2 Qualified Code(s): E11.40 - Type 2 diabetes mellitus with diabetic neuropathy, unspecified; Z79.4 - plunket nurse (current) use of insulin Category: Medical Code(s): E11.40 - Type 2 diabetes mellitus with diabetic neuropathy, unspecified (9) COPD (chronic obstructive pulmonary disease) with chronic bronchitis: Status: Chronic Category: Medical Code(s): J44.9 - Chronic obstructive pulmonary disease, unspecified (10) Functional quadriplegia: Status: Acute Category: Medical Code(s): R53.2 - Functional quadriplegia (11) CVA (cerebral vascular accident): Status: Acute Qualifiers: CVA mechanism: unspecified Qualified Code(s): I63.9 - Cerebral infarction, unspecified Category: Medical Code(s): I63.9 - Cerebral infarction, unspecified Plan 72-year-old female with multiple complex comorbidities. Presented to the ER complaining of choking. Workup in the ER concerning for mild CHF and malignant hypertension. Discussed case with ER physician, request admission for observation overnight and treatment with diuresis and addressing blood pressure. I agreed to admit for further management. Responding well to diuretics. Problems addressed as follows: CHF Malignant hypertension -Administered Lasix in the ER, responding well. Monitor for negative fluid balance -Administered 1 dose irbesartan 150 mg tonight. Monitor for improvement pressure. Goal blood pressure less than 160/90 -Resume home Plavix 75 mg daily, aspirin 81 mg daily, Lipitor 40 mg daily, carvedilol 25 mg daily, irbesartan 300 mg and HCTZ 12.5 mg daily -Stressed the importance of compliant with blood pressure medication regimen as prescribed Continue home baclofen 10 mg 3 times a day for spasm Continue home gabapentin 600 mg 3 times a day for neuropathy Given her diabetes, continue home metformin 1000 mg twice daily along with sliding scale insulin with fingersticks ACHS. continue home oxycodone 10 mg 4 times a day as needed for severe pain Continue home Paxil 60 mg for mood Continue home Seroquel 50 for sleep Continue home senna 8.6 mg capsule twice daily for constipation Patient's labs showed normal white count and hemoglobin 8.9 and 14.8 respectively. Kidney function normal with BUN 24, creatinine 0.8. Glucose elevated 157. Sodium 135. Magnesium 3.9. BNP elevated at 730. Repeat CBC, CMP, magnesium ordered for the morning. Per my review of chest CTA, no PEs noted. Chest x-ray has some mild bibasilar increase in pulmonary markings concerning for congestion DNR/DNI Mechanical soft diet
--- NOTE | 2023-11-21 17:08 | PC.NURSE ---
TYPEWRITER ASSEMBLER NOTIFIED OF ADMISSION
[2023-11-21 17:24] LABS: Microscopic, Urine URINE MICROSCOPIC (MICROSCOPIC)
[2023-11-21] MEDS: MAGNESIUM SULFATE IN WATER 2 GM/50 ML PIGGYBACK IV (17:25)
--- NOTE | 2023-11-21 17:25 | PC.NURSE ---
Report given to ROSA Blancas on Med Surg.
[2023-11-21 17:27] LABS: Appearance,Urine CLEAR (Clear); Bilirubin,Urine Negative (Negative); Blood, Urine Negative (Negative); Color,Urine YELLOW (Yellow); Glucose,Urine (UA) Negative (Negative); Ketones,Urine Negative (Negative); Leukocyte Esterase,Urine Negative (Negative); Nitrate,Urine Negative (Negative); PH,Urine 5.5 (5.0-8.5); Protein,Urine Negative (Negative); Urobilinogen,Urine 0.2 EU/dl (0.2)
--- NOTE | 2023-11-21 17:49 | PC.NURSE ---
arrived by stretcher from ED
[2023-11-21] MEDS: IRBESARTAN 150MG TAB 150 MG PO (18:16)
[2023-11-21 18:28] LABS: RBC,Urine Occasional #/hpf (0-3); WBC,Urine Occasional #/hpf (0-3)
[2023-11-21] MEDS: BACLOFEN 10MG TABLET 10 MG PO (19:16)
[2023-11-21 19:31] LABS: HIV (1&2) Antibody Rapid NONREACTIVE (NONREACTIVE)
[2023-11-21 20:50] LABS: Troponin I 0.06 ng/ml (0.00-0.034)
[2023-11-21 21:17] LABS: POC Glucose,Bedside 198 (70-110)
[2023-11-21] MEDS: ATORVASTATIN 40MG TABLET 40 MG PO (21:19)
[2023-11-21] MEDS: humaLOG 100 UNITS/ML 10ML VIAL (SSI) SQ (21:19)
[2023-11-21] MEDS: DOCUSATE SODIUM 250MG CAPSULE 250 MG PO (21:20)
[2023-11-21] MEDS: CARVEDILOL 25MG TABLET 25 MG PO (21:20)
[2023-11-21] MEDS: GABAPENTIN 600MG TABLET 600 MG PO (21:21)
[2023-11-21] MEDS: PATIENT'S OWN HOME MEDICATION (Quetiapine 50 mg tablet) 50 EACH PO (21:21)
[2023-11-22] VITALS (8 sets, daily range): BP systolic 89–150; BP diastolic 42–110; PULSE 50–111; RESP 14–18; TEMP 36.3–37.3; O2SAT 94–100; BMI 28.8
[2023-11-22] MEDS: OXYCODONE 10MG W/APAP 325MG TABLET 1 EACH PO ×2 (01:39→12:09)
[2023-11-22] MEDS: BACLOFEN 10MG TABLET 10 MG PO (02:39)
[2023-11-22] MEDS: humaLOG 100 UNITS/ML 10ML VIAL (SSI) SQ ×4 (06:23→21:55)
[2023-11-22 06:27] LABS: POC Glucose,Bedside 207 (70-110)
--- NOTE | 2023-11-22 06:28 | PC.NURSE ---
0435 - Low blood pressure of 89/42 reported to me by tech 0440 - I manually took patients blood pressure in left arm and got 74/36, ROSA Zamora re-checked in left arm and got 68/30. Checked in left leg and got 99/76 and 132/45. 7033 - Called Dr Ibnaez and made aware of low blood pressures. No new orders.
[2023-11-22 07:14] LABS: Basophils # 0.1 K/mm3 (0-0.2); Basophils % 1.1 % (0.1-2.0); Eosinophils # 0.1 K/mm3 (0.0-0.4); Eosinophils % 1.3 % (0.1-12.0); Hematocrit 40.9 % (37.0-47.0); Lymphocytes # 2.6 K/mm3 (0.7-4.5); Lymphocytes % 32.2 % (10-50); Mean Corpuscular HGB Conc 31.9 g/dL (31.8-35.4); Mean Corpuscular Hemoglobin 33.8 pg (27.0-31.2); Mean Corpuscular Volume 105.8 fl (81-99); Monocytes # 0.6 K/mm3 (0.1-1.0); Monocytes % 7.1 % (1.7-9.3); Neutrophils # 4.7 K/mm3 (1.8-7.8); Neutrophils % 58.2 % (37.0-80.0); Platelet Count 289 K/mm3 (142-424); Red Blood Count 3.87 M/mm3 (4.20-5.40); Red Cell Distribution Width 14.9 % (11.5-17.5)
[2023-11-22 07:40] LABS: Albumin Level 3.5 g/dl (3.5-5.0); Chloride 100 mmol/L (98-107); Sodium 134 mmol/L (136-145)
[2023-11-22 07:41] LABS: Potassium 3.4 mmoL/L (3.5-5.1)
[2023-11-22 07:43] LABS: Alanine Aminotransferase 11 U/L (12-78); Albumin/Globulin Ratio 1.2 (1.1-1.8); Alkaline Phosphatase 83 U/L (38-126); Anion Gap 11.4 mEq/L (5-15); Aspartate Amino Transferase 22 U/L (14-36); Bilirubin,Total 0.5 mg/dl (0.2-1.3); Blood Urea Nitrogen 22 mg/dl (7-17); Carbon Dioxide 26 mmol/L (22.0-30.0); Creatinine Clearance Estimated 60 mL/min (50-200); Estimated Glomerular Filt Rate 54 ml/min (>60); GFR (African American) 66 ML/MIN (>60); Globulin 2.9 g/dL (1.3-3.2); Total Protein,Serum 6.4 g/dl (6.3-8.2)
[2023-11-22 07:44] LABS: Calcium 9.1 mg/dl (8.4-10.2); Glucose 191 mg/dl (74-100); Magnesium 2.3 mg/dl (1.6-2.3)
[2023-11-22 08:26] LABS: Hemoglobin 13.2 g/dL (12.2-16.2)
--- NOTE | 2023-11-22 09:10 | CA_ITS ---
APPROVED REPORT EXAM: Limited 2D, Doppler, and color-flow Echocardiogram Stone Lathe Operator: Debbie Aceves CRT Ht: 204 ft 4 in Wt: 168lbs BSA: 25.53 BP: 186/73 mmHg Indications: Chest Pain, COPD, CVA/TIA, CAD, Hyperlipidemia, Hypertension/HDD, PAD, PVD, DNR/DNI Very limited images M-Mode Dimensions RVDd 2.73 cm (0.9-2.6) LVDd 4.17 cm (3.5-5.7) LVDs 2.28 cm (3.5-5.7) IVSd 2.20 cm (0.6-1.1) PWd 1.29 cm (0.6-1.1) EF (Teich) 77.10% FS 45.30% EDV (Teich) 77.30 mL ESV (Teich) 17.70 mL LV Diastology E Decel Time 190 (160-240 msec) E/A Ratio 0.46 Aortic Valve AO Peak GR. 7.90 mmHg Mitral Valve MV A Velocity 93.0 (40-130 cm/s) E/A Ratio 0.46 Other Information Study Quality: Technically Difficult Conclusion This is a limited TTE to evaluate for LVEF. Limited windows were obtained. Technically difficult study. The left ventricle is normal in size. The LV systolic function is hyperdynamic. Regional wall motion is difficult to evaluate due to technically difficult study, but grossly no evidence of obvious regional wall motion abnormalities noted. LVEF is 70%. Trivial, anterior pericardial effusion is noted. No evidence of chamber collapse. IVC is normal in size and collapsibility. No echo indications of tamponade. Electronically signed by : Angie Hollis MD 11/22/2023 12:27:54
--- NOTE | 2023-11-22 10:25 | EXP.CARD.CON ---
History of Present Illness History of Present Illness Consult date: 11/22/23 Requesting physician: Casa Ibanez Consult reason: hypertension Chief complaint: SOA History of present illness: 72-year-old white female prior patient of our office last seen several years ago with a history of peripheral artery disease status post stenting of lower extremities, diabetes, ongoing tobacco use, hyperlipidemia, hypertension. Apparently since her last visit with us patient suffered significant CVA and is now nonverbal with contractures of bilateral upper and bilateral lower extremities. Her provides 24-hour care. He is unavailable at this time so history is gathered from chart and other providers as patient is unable to participate in visit. Patient apparently had brief choking episode yesterday and then appeared more short of breath so EMS was called by . On arrival to the emergency room patient had blood pressure of 230, she had flat troponins at 0.06, proBNP 731, creatinine 1.0. 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 She was admitted overnight for observation and medical management. At some point her blood pressure dropped to 89/42. Last check was 116/57. Patient's reportedly admitted she is inconsistent with medications at home. EKG here shows sinus bradycardia at 54 bpm with a new left bundle branch block compared with 2022. [facility] Disclaimer: The information contained in this section may have been updated after the patient was seen, as this information can be updated by other users. Medical History CVA (cerebral vascular accident) Pain due to onychomycosis of toenails of both feet Hip replacement planned Coronary artery disease Renal cyst, left Chest pain HTN (hypertension) Abnormal electrocardiography Gastroesophageal reflux disease Dyspnea Chest pain Neuropathy, cervical (radicular) Left shoulder strain Chronic prescription opiate use Declining functional status Decubitus skin ulcer Hypertensive urgency Callus of foot Onychomycosis Diabetic foot Chronic, continuous use of opioids Hemiplegia affecting right dominant side Gastroenteritis Bronchitis Surgical History History of knee replacement History of back surgery Social History Smoking Status: Unknown if ever smoked alcohol intake: former substance use type: denies use current occupational status: retired Travel in the last 8 weeks: Inside the [place] household members: spouse housing: other caffeine: No Review of Systems Review of Systems Review of systems:: unable to obtain Exam Data for Last 24 hours Vital signs and Labs for Last 24 Hours: Temp Pulse Resp BP Pulse Ox O2 Del Method 98.8 F 53 L 16 116/57 L 98 Room Air 11/22/23 08:30 11/22/23 08:00 11/22/23 08:00 11/22/23 08:00 11/22/23 08:00 11/22/23 09:00 Laboratory Results - last 24 hr 11/21/23 13:43: WBC 8.9, RBC 4.37, Hgb 14.8, Hct 46.7, MCV 106.7 H, MCH 33.9 H, MCHC 31.8, RDW 14.8, Plt Count 330, MPV 8.7, Neut % (Auto) 62.7, Lymph % (Auto) 27.6, [place] % (Auto) 7.2, Eos % (Auto) 1.3, Baso % (Auto) 1.2, Neut # (Auto) 5.6, Lymph # (Auto) 2.5, [place] # (Auto) 0.6, Eos # (Auto) 0.1, Baso # (Auto) 0.1, Sodium 135 L, Potassium 3.9, Chloride 100, Carbon Dioxide 26, Anion Gap 12.9, BUN 24 H, Creatinine 0.80, Estimated Creat Clear 62, Estimated GFR 70, Est GFR ( Amer) 85, Glucose 157 H, Calcium 9.6, Total Bilirubin 0.7, AST 27, ALT 16, Alkaline Phosphatase 91, Troponin I 0.06 H, NT-Pro-B Natriuret Pep 731 H, Total Protein 7.5, Albumin 4.2, Globulin 3.3 H, Albumin/Globulin Ratio 1.3, HIV 1&2 Antibody Rapid Nonreactive 11/21/23 14:00: VBG pH 7.37, VBG pCO2 42.1, VBG pO2 44.9 H, VBG HCO3 23.8, VBG Total CO2 25.1, VBG O2 Saturation 78.3 H, VBG Base Excess -1.4, VBG Lactic Acid 1.9 11/21/23 16:30: Troponin I 0.05 H 11/21/23 17:20: Urine Color Yellow, Urine Appearance Clear, Urine pH 5.5, Ur Specific [place] 1.010, Urine Protein Negative, Urine Glucose (UA) Negative, Urine Ketones Negative, Urine Blood Negative, Urine Nitrate Negative, Urine Bilirubin Negative, Urine Urobilinogen 0.2, Ur Leukocyte Esterase Negative, Urine RBC Occasional, Urine WBC Occasional, Ur Squamous Epith Cells None, Urine Bacteria None 11/21/23 20:22: Troponin I 0.06 H 11/21/23 21:09: POC Glucose 198 H 11/22/23 06:19: POC Glucose 207 H 11/22/23 06:23: WBC 8.0, RBC 3.87 L, Hgb 13.2 D, Hct 40.9, MCV 105.8 H, MCH 33.8 H, MCHC 31.9, RDW 14.9, Plt Count 289, MPV 8.0, Neut % (Auto) 58.2, Lymph % (Auto) 32.2, [place] % (Auto) 7.1, Eos % (Auto) 1.3, Baso % (Auto) 1.1, Neut # (Auto) 4.7, Lymph # (Auto) 2.6, [place] # (Auto) 0.6, Eos # (Auto) 0.1, Baso # (Auto) 0.1, Sodium 134 L, Potassium 3.4 L, Chloride 100, Carbon Dioxide 26, Anion Gap 11.4, BUN 22 H, Creatinine 1.00 D, Estimated Creat Clear 60, Estimated GFR 54 L, Est GFR ( Amer) 66 D, Glucose 191 H D, Calcium 9.1, Magnesium 2.3, Total Bilirubin 0.5, AST 22, ALT 11 L D, Alkaline Phosphatase 83, Total Protein 6.4, Albumin 3.5 D, Globulin 2.9, Albumin/Globulin Ratio 1.2 I & O for Last 24 hours: Intake & Output 11/19/23 11/20/23 11/21/23 11/22/23 23:59 23:59 23:59 23:59 Output Total 1300 / 1300 950 / 950 Balance -1300 / -1300 -950 / -950 Weight 161 lb 4 oz 168 lb 8 oz Constitutional Constitutional: no acute distress *Routine HEENT Exam Eye: Present PERRL *Routine Respiratory Exam Respiratory: Present CTA bilaterally; Absent accessory muscle use, wheezes or crackles *Routine Cardiovascular Exam Cardiovascular: Present RRR, Normal S1 and Normal S2; Absent murmur, gallop or rubs *Routine Abdominal Exam Abdominal: Present soft; Absent tenderness *Routine Extremities Exam Extremities: Present pulses intact; Absent cyanosis or edema Comments: Contractures of bilateral upper and bilateral lower extremities. foot drop BLE *Routine Skin Exam Skin: Present intact; Absent erythema or wounds *Routine Neurological Exam Neurological: Present alert Comments: Contractures all extremities, patient will make eye contact but is nonverbal Routine Psychiatric Exam Psychiatric: Present cooperative Meds Home Medications and Allergies Home Medications ?Medication ?Instructions ?Recorded ?Confirmed ?Type alendronate 70 mg tablet 70 mg PO WEEKLY Osteoporosis 84 12/29/21 11/22/23 Rx days #12 tabs melatonin-pyridoxine HCl (vitamin 1 tab PO HS SLEEP 30 days #30 tabs 12/29/21 11/22/23 Rx B6) 5 mg-10 mg tablet carvedilol 25 mg tablet 25 mg PO BID Hypertension #180 tabs 01/04/23 11/22/23 Rx baclofen 10 mg tablet 10 mg PO Q8H MUSCLE SPASM 02/09/23 11/22/23 History docusate sodium 250 mg capsule 250 mg PO BID Constipation 02/09/23 11/22/23 History (Stool Softener) hydroxyzine HCl 10 mg tablet 10 mg PO BID Anxiety 02/09/23 11/22/23 History metformin 1,000 mg tablet 1,000 mg PO BIDWMEAL Diabetes 02/09/23 11/22/23 History quetiapine 50 mg tablet 50 mg PO HS SLEEP 02/09/23 11/22/23 History aspirin 81 mg tablet,delayed 81 mg PO DAILY Heart Disease 04/02/23 11/22/23 History release atogepant 60 mg tablet (Qulipta) 60 mg PO DAILY MIGRAINES 04/02/23 11/22/23 History insulin aspar prt-insulin aspart 12 unit SQ DAILY Diabetes 04/02/23 11/22/23 History 100 unit/mL (70-30) subcutaneous soln (Novolog Mix 70-30 U-100 Insuln) insulin glargine 100 32 unit SQ DAILY Diabetes 04/02/23 11/22/23 History unit-lixisenatide 33 mcg/mL subcutaneous pen (Soliqua 100/33) oxycodone-acetaminophen 10 mg-325 1 tab PO QIDP PRN Moderate Pain 04/02/23 11/22/23 History mg tablet (Scale Score 5-6) blood sugar diagnostic (Accu-Chek #100 ea 04/13/23 11/22/23 Rx Guide test strips) paroxetine HCl 20 mg tablet 60 mg (3 x 20 mg) PO HS MOOD 90 05/18/23 11/22/23 Rx days #270 tabs prochlorperazine maleate 5 mg 5 mg PO TID PRN anxiety or nausea 06/17/23 11/22/23 Rx tablet #60 tabs gabapentin 600 mg tablet 600 mg PO TID NERVE PAIN #90 tabs 07/19/23 11/22/23 Rx morphine 15 mg tablet,extended 30 mg PO DAILY 08/08/23 11/22/23 History release naloxegol 25 mg tablet (Movantik) 25 mg PO DAILY 08/08/23 11/22/23 History sennosides 8.6 mg capsule (senna) 8.6 mg PO BID PRN constipation #30 09/06/23 11/22/23 Rx caps benzonatate 100 mg capsule 100 mg PO TIDP PRN Cough #30 caps 09/30/23 11/22/23 Rx atorvastatin 40 mg tablet 40 mg PO DAILY 11/22/23 11/22/23 History clopidogrel 75 mg tablet 75 mg PO DAILY 30 days #30 tabs 11/22/23 Rx empagliflozin 10 mg tablet 20 mg (2 x 10 mg) PO DAILY 30 days 11/22/23 Rx (Jardiance) #60 tabs hydrochlorothiazide 12.5 mg capsule 12.5 mg PO DAILY 30 days #30 caps 11/22/23 Rx irbesartan 300 mg tablet 300 mg PO DAILY #30 tabs 11/22/23 Rx nicotine 21 mg/24 hr daily 1 patch transdermal DAILY 11/22/23 11/22/23 History transdermal patch New Prescriptions to Start Prescriptions: clopidogrel Casa Ibanez empagliflozin [Jardiance] Casa Ibanez hydrochlorothiazide Casa Ibanez irbesartan Casa Ibanez Allergies Allergy/AdvReac Type Severity Reaction Status Date / Time cefuroxime [From CEFTIN] Allergy Mild Verified 09/05/23 15:21 codeine Allergy Verified 09/30/23 16:54 Assessment and Plan *Assessment and plan (1) Hypertensive emergency: Status: Acute Category: Medical Code(s): I16.1 - Hypertensive emergency (2) PAD (peripheral artery disease): Status: Acute Category: Medical Code(s): I73.9 - Peripheral vascular disease, unspecified (3) Coronary artery disease: Status: Chronic Qualifiers: Associated angina: unspecified whether angina present Coronary Disease-Associated Artery/Lesion type: unspecified vessel or lesion type [place] vs. transplanted heart: [place] heart Qualified Code(s): I25.10 - Atherosclerotic heart disease of [place] coronary artery without angina pectoris Category: Medical Code(s): I25.10 - Atherosclerotic heart disease of [place] coronary artery without angina pectoris (4) PVD (peripheral vascular disease): Status: Acute Category: Medical Code(s): I73.9 - Peripheral vascular disease, unspecified (5) Diabetes mellitus with diabetic neuropathy: Status: Chronic Qualifiers: Diabetes mellitus group home insulin use: with group home use Diabetes mellitus type: type 2 Qualified Code(s): E11.40 - Type 2 diabetes mellitus with diabetic neuropathy, unspecified; Z79.4 - jail (current) use of insulin Category: Medical Code(s): E11.40 - Type 2 diabetes mellitus with diabetic neuropathy, unspecified (6) COPD (chronic obstructive pulmonary disease) with chronic bronchitis: Status: Chronic Category: Medical Code(s): J44.9 - Chronic obstructive pulmonary disease, unspecified (7) Functional quadriplegia: Status: Acute Category: Medical Code(s): R53.2 - Functional quadriplegia (8) CVA (cerebral vascular accident): Status: Acute Qualifiers: CVA mechanism: unspecified Qualified Code(s): I63.9 - Cerebral infarction, unspecified Category: Medical Code(s): I63.9 - Cerebral infarction, unspecified (9) Aortic mural thrombus: Status: Acute Category: Medical Code(s): I74.10 - Embolism and thrombosis of unspecified parts of aorta Plan Accelerated Htn - appears secondary to medication noncompliance and SOA - now stable on essentially her home meds - check ECHO and Renal Duplex - consider SNF or at discharge for med compliance Thoracic Aortic Aneurysm with Mural Thrombus - control BP - cont ASA, Statin PAD s/p BLE stenting - extremeties are warm - cont ASA and statin Hx of CVA with Functional Quadriplegia - consider OAC and SNF placement - will defer to Hospitalist Sacral Decubitus Wound - per wound care Addendum: Pt would not allow sonographers to obtain ECHO or Renal - kept pushing transducer off and would not participate. BP improved, please advise if we can be of further assistance this admission. I believe she would be best suited with a Palliative Care/Hospice center.
--- NOTE | 2023-11-22 11:27 | HMH.PHAINT1 ---
Pharmacy Intervention Comments: Home medication list verified using list from pharmacy and interview with patients spouse at bedside.
[2023-11-22 12:56] LABS: POC Glucose,Bedside 189 (70-110)
[2023-11-22] MEDS: NICOTINE 21MG/24HR PATCH 21 MG TD (13:08)
--- NOTE | 2023-11-22 16:33 | P.PN_ITS ---
Subjective *Date: 11/22/23 *Time: 16:33 Interval history: Patient continued to be confused, nonsensical, not eating. Extensive goals of care conversations were had with family, see below. They are leaning towards hospice care. Exam Data for Last 24 hours Vital signs and Labs for Last 24 Hours: Temp Pulse Resp BP Pulse Ox O2 Del Method 98.1 F 64 18 150/62 H 94 L Room Air 11/22/23 16:00 11/22/23 16:00 11/22/23 16:00 11/22/23 16:00 11/22/23 16:00 11/22/23 15:00 Laboratory Results - last 24 hr 11/21/23 13:43: HIV 1&2 Antibody Rapid Nonreactive 11/21/23 16:30: Troponin I 0.05 H 11/21/23 17:20: Urine Color Yellow, Urine Appearance Clear, Urine pH 5.5, Ur Specific [place] 1.010, Urine Protein Negative, Urine Glucose (UA) Negative, Urine Ketones Negative, Urine Blood Negative, Urine Nitrate Negative, Urine Bilirubin Negative, Urine Urobilinogen 0.2, Ur Leukocyte Esterase Negative, Urine RBC Occasional, Urine WBC Occasional, Ur Squamous Epith Cells None, Urine Bacteria None 11/21/23 20:22: Troponin I 0.06 H 11/21/23 21:09: POC Glucose 198 H 11/22/23 06:19: POC Glucose 207 H 11/22/23 06:23: WBC 8.0, RBC 3.87 L, Hgb 13.2 D, Hct 40.9, MCV 105.8 H, MCH 33.8 H, MCHC 31.9, RDW 14.9, Plt Count 289, MPV 8.0, Neut % (Auto) 58.2, Lymph % (Auto) 32.2, [place] % (Auto) 7.1, Eos % (Auto) 1.3, Baso % (Auto) 1.1, Neut # (Auto) 4.7, Lymph # (Auto) 2.6, [place] # (Auto) 0.6, Eos # (Auto) 0.1, Baso # (Auto) 0.1, Sodium 134 L, Potassium 3.4 L, Chloride 100, Carbon Dioxide 26, Anion Gap 11.4, BUN 22 H, Creatinine 1.00 D, Estimated Creat Clear 60, Estimated GFR 54 L, Est GFR ( Amer) 66 D, Glucose 191 H D, Calcium 9.1, Magnesium 2.3, Total Bilirubin 0.5, AST 22, ALT 11 L D, Alkaline Phosphatase 83, Total Protein 6.4, Albumin 3.5 D, Globulin 2.9, Albumin/Globulin Ratio 1.2 11/22/23 12:48: POC Glucose 189 H I & O for Last 24 hours: Intake & Output 11/19/23 11/20/23 11/21/23 11/22/23 23:59 23:59 23:59 23:59 Intake Total 100 / 100 Output Total 1300 / 1300 950 / 950 Balance -1300 / -1300 -850 / -850 Weight 73.142 kg 76.43 kg Constitutional Comments: Constitutional Constitutional: no acute distress, average body habitus, chronically ill appearing and cooperative *Routine HEENT Exam Head: Present normocephalic Eye: Present EOMI ENT: Present mucous membranes moist Comments: Edentulous *Routine Neck Exam Neck: Present supple; Absent carotid bruit *Routine Respiratory Exam Respiratory: Present CTA bilaterally; Absent respiratory distress, rhonchi, wheezes or crackles *Routine Cardiovascular Exam Cardiovascular: Present RRR *Routine Abdominal Exam Abdominal: Present soft *Routine Rectal Exam Rectal:: deferred *Routine Genitalia Exam Genitalia:: deferred Comment:: Fletcher in place *Routine Extremities Exam Extremities: Present pulses intact; Absent cyanosis, normal capillary refill or calf tenderness Comments: Contracture in both upper and lower extremities. Functionally quadriplegic *Routine Skin Exam Skin: Present intact; Absent jaundice Comments: Blanchable red spot on sacrum *Routine Neurological Exam Neurological: Present alert, motor deficit and hearing grossly intact; Absent moving all extremities, normal tone or normal speech Comments: Significant residual deficits from previous CVAs. Contractures of upper and lower extremities. Assessment and Plan *Assessment and plan (1) Encephalopathy acute: Status: Acute Category: Medical Code(s): G93.40 - Encephalopathy, unspecified (2) Delirium: Status: Acute Category: Medical Code(s): R41.0 - Disorientation, unspecified (3) CVA (cerebral vascular accident): Status: Acute Qualifiers: CVA mechanism: unspecified Qualified Code(s): I63.9 - Cerebral inf arction, unspecified Category: Medical Code(s): I63.9 - Cerebral infarction, unspecified (4) HTN (hypertension): Status: Acute Qualifiers: Hypertension type: unspecified Qualified Code(s): I10 - Essential (primary) hypertension Category: Medical Code(s): I10 - Essential (primary) hypertension Plan Ms. Agosto is a 72-year-old female with history of CVA with resultant deficits of bilateral upper and lower extremities, chronic pain, sacral decubitus wound, hypertension, hyperlipidemia. Presented to the ER complaining of choking. #Acute encephalopathy #Suspected stroke related encephalopathy #Hospital-acquired delirium, superimposed #Stroke related quadriplegia, chronic ? Over the past 4 days, even before admission, patient has become more confused and speaking more nonsensical. She often asked for food that she does not eat. Currently not eating. ? Patient has his at least 2 strokes in the past that Guerra left her quadriplegic, bedbound at home with her . ? Given the stability in her progression and symptoms and possible nonactionable stroke, extensive goals of care conversation was had with , sister, son-in-law, and granddaughter. Given that much of the workup that can be done is likely not to increase her quality of life, family is very much considering hospice care at this time. ? Patient is currently not eating. Family understands the risks of placing and maintaining a PEG tube, when to hold off for now. ? Social work consulted, will speak to family more about hospice care tomorrow morning. ? Family is interested in home with hospice care if insurance does cover it. ? At this time, family does not want further workup for possible stroke. ? Current workup does not reveal metabolic or toxic abnormalities. #Malignant hypertension, resolved #Hypertension ? Resumed home irbesartan 150 mg, carvedilol 25 mg, hydrochlorothiazide 12.5 mg - Stressed the importance of compliant with blood pressure medication regimen as prescribed ? Initially thought to be CHF related given elevated BNP, however this could be due to age and patient also did not have signs of fluid overload. Continue home baclofen 10 mg 3 times a day for spasm Continue home gabapentin 600 mg 3 times a day for neuropathy Given her diabetes, continue home metformin 1000 mg twice daily along with sliding scale insulin with fingersticks ACHS. continue home oxycodone 10 mg 4 times a day as needed for severe pain Continue home Paxil 60 mg for mood Continue home Seroquel 50 for sleep Continue home senna 8.6 mg capsule twice daily for constipation
[2023-11-22 16:48] LABS: POC Glucose,Bedside 209 (70-110)
--- NOTE | 2023-11-22 17:57 | PC.NURSE ---
pt is currently resting in bed. pt is alert to self only. has screamed out majority of the shift for her , who is at bedside. pt has been requesting a drink, but when giving her a drink, she will not suck from the straw or swallow when a spoon of liquid is placed in her mouth. suction used to remove. attempted to feed pt breakfast and give meds this morning, but pt spit oatmeal on myself and the practical nursing teacher that was with me. pt was able to take percocet per mar orally when placed in applesauce later that morning, but continued to spit food at me when trying to give more for other pills. pt has had stable vital signs. boyd draining urine appropriately. fbsb was 189 at 1200 and 209 at 1600. treated per mar. family had concern of pt decline and Dr. Ibanez spoke with them for an extended time at bedside regarding pt condition and next steps for care. hospice was discussed, but family did not accept recommendation at this time. call light in reach, bed in low and locked position, bed alarm on for pt safety.
--- NOTE | 2023-11-22 21:12 | CT_ITS ---
PROCEDURE INFORMATION: Exam: CT Head Without Contrast Exam date and time: 11/22/2023 9:35 PM Age: 72 years old Clinical indication: Altered mental status/memory loss; Additional info: Change in mentation since yesterday TECHNIQUE: Imaging protocol: Computed tomography of the head without contrast. Radiation optimization: All CT scans at this facility use at least one of these dose optimization techniques: automated exposure control; mA and/or kV adjustment per patient size (includes targeted exams where dose is matched to clinical indication); or iterative reconstruction. COMPARISON: CT HEAD/BRAIN WO CON 10/24/2021 9:05 PM FINDINGS: Brain: No evidence for intracranial hemorrhage, mass lesions or acute stroke. Intracranial vascular calcifications. Moderate small vessel ischemic change in the periventricular white matter. Old bilateral thalamic lacunar infarcts. Old bilateral inferior cerebellar infarcts image 04/27. Cerebral ventricles: Ventricular prominence. Pituitary gland and sella: Negative Paranasal sinuses: Visualized sinuses are unremarkable. No fluid levels. Mastoid air cells: Visualized mastoid air cells are well aerated. Orbital cavities: Bilateral cataract extractions. Parotid and submandibular glands: Negative Bones: Unremarkable. No acute fracture. Soft tissues: Unremarkable. Vasculature: Negative. Other findings: Mild generalized atrophy. IMPRESSION: Paste
--- NOTE | 2023-11-22 21:25 | PC.NURSE ---
Patient left floor with Radiology @ 21:25.
[2023-11-22 21:32] LABS: POC Glucose,Bedside 151 (70-110)
--- NOTE | 2023-11-22 21:38 | PC.NURSE ---
Patient arrived back to floor from Radiology at 21:39.
[2023-11-22] MEDS: QUETIAPINE 25MG TABLET 50 MG PO (21:46)
[2023-11-22] MEDS: CARVEDILOL 25MG TABLET 25 MG PO (21:46)
[2023-11-22] MEDS: ATORVASTATIN 40MG TABLET 40 MG PO (21:46)
[2023-11-22] MEDS: DOCUSATE SODIUM 250MG CAPSULE 250 MG PO (21:50)
[2023-11-22] MEDS: GABAPENTIN 600MG TABLET 600 MG PO (21:51)
[2023-11-22] MEDS: PARoxetine 20MG TABLET 60 MG PO (21:51)
[2023-11-22] MEDS: LORazepam 2MG/ML VIAL 0.5 MG IV (22:15)
[2023-11-23] VITALS: BP 138/71; PULSE 59; PULSE 60; RESP 16; TEMP 36.9; O2SAT 95
[2023-11-23] MEDS: BACLOFEN 10MG TABLET 10 MG PO ×3 (02:58→18:45)
[2023-11-23] MEDS: OXYCODONE 10MG W/APAP 325MG TABLET 1 EACH PO ×2 (03:00→14:30)
[2023-11-23 04:00] VITALS: BP 124/68; PULSE 50; PULSE 60; RESP 16; TEMP 36.8; O2SAT 94; BMI 28.8
[2023-11-23 07:28] LABS: HCV Ab Non Reactive (Non Reactive)
[2023-11-23] MEDS: humaLOG 100 UNITS/ML 10ML VIAL (SSI) SQ ×4 (07:44→20:50)
[2023-11-23 07:53] LABS: POC Glucose,Bedside 291 (70-110)
[2023-11-23 08:00] VITALS: BP 150/70; PULSE 55; PULSE 78; RESP 20; TEMP 36.8; O2SAT 96
--- NOTE | 2023-11-23 08:56 | SW/DCPLANNER ---
Addendum entered by Alma Wright 11/24/23 15:06: Roselia w/ [facility] stated that patient can be accepted for services but will have an OOP expense. Roselia will discuss this w/ patient and . Addendum entered by Alma Wright 11/23/23 11:46: Susi w/ [facility] stated that patient does not have a Hospice diagnosis at this time. Patient information/order has been faxed to Kortney fisher/ [facility]. Addendum entered by Alma Wright 11/23/23 10:10: Susi w/ Hospice is onsite to speak w/ patient and . Original Note: I spoke w/ patient's regarding plans once medically stable for discharge. MD discussed option of Hospice Care at home at time of discharge. Patient's is interested in services but would like to speak w/ Hospice nurse prior to making a decision. Patient information has been faxed to [facility] this AM. I will follow up once information is reviewed.
[2023-11-23] MEDS: IRBESARTAN 300MG TABLET 300 MG PO (09:00)
[2023-11-23] MEDS: CARVEDILOL 25MG TABLET 25 MG PO ×2 (09:00→20:29)
[2023-11-23] MEDS: GABAPENTIN 600MG TABLET 600 MG PO ×3 (09:00→20:29)
[2023-11-23] MEDS: ASPIRIN EC 81MG TABLET 81 MG PO (09:00)
[2023-11-23] MEDS: hydroCHLOROthiazide 12.5MG CAPSULE 12.5 MG PO (09:00)
[2023-11-23] MEDS: DOCUSATE SODIUM 250MG CAPSULE 250 MG PO ×2 (09:00→20:29)
[2023-11-23] MEDS: EMPAGLIFLOZIN 10MG TABLET 20 MG PO (09:01)
[2023-11-23] MEDS: NICOTINE 21MG/24HR PATCH 21 MG TD (09:09)
[2023-11-23] MEDS: CLOPIDOGREL 75MG TAB 75 MG PO (09:09)
[2023-11-23 09:25] LABS: Basophils # 0.1 K/mm3 (0-0.2); Basophils % 0.9 % (0.1-2.0); Eosinophils # 0.1 K/mm3 (0.0-0.4); Eosinophils % 1.1 % (0.1-12.0); Hematocrit 40.5 % (37.0-47.0); Hemoglobin 12.7 g/dL (12.2-16.2); Lymphocytes # 2.7 K/mm3 (0.7-4.5); Mean Corpuscular HGB Conc 31.5 g/dL (31.8-35.4); Mean Platelet Volume 8.7 fl (7.4-10.4); Monocytes # 0.7 K/mm3 (0.1-1.0); Monocytes % 6.1 % (1.7-9.3); Neutrophils # 7.7 K/mm3 (1.8-7.8); Neutrophils % 67.9 % (37.0-80.0); Platelet Count 315 K/mm3 (142-424); Red Blood Count 3.86 M/mm3 (4.20-5.40); Red Cell Distribution Width 14.9 % (11.5-17.5); White Blood Count 11.3 K/mm3 (4.8-10.8)
[2023-11-23 09:40] LABS: Thyroid Stimulating Hormone 0.66 uIU/mL (0.465-4.68)
[2023-11-23 10:03] LABS: Vitamin B12 > 1000 pg/mL (239-931)
[2023-11-23 10:04] LABS: Alanine Aminotransferase 14 U/L (12-78); Albumin Level 3.9 g/dl (3.5-5.0); Alkaline Phosphatase 80 U/L (38-126); Anion Gap 11.8 mEq/L (5-15); Aspartate Amino Transferase 26 U/L (14-36); Bilirubin,Direct 0.4 mg/dl (0.0-0.4); Bilirubin,Indirect 0.2 mg/dL (0.0-0.9); Bilirubin,Total 0.6 mg/dl (0.2-1.3); Bilirubin,Unconjugated 0.2 mg/dL (0.0-1.1); Blood Urea Nitrogen 29 mg/dl (7-17); Calcium 9.2 mg/dl (8.4-10.2); Carbon Dioxide 23 mmol/L (22.0-30.0); Chloride 102 mmol/L (98-107); Creatinine Clearance Estimated 60 mL/min (50-200); Estimated Glomerular Filt Rate 54 ml/min (>60); GFR (African American) 66 ML/MIN (>60); Glucose 198 mg/dl (74-100); Potassium 3.8 mmoL/L (3.5-5.1); Sodium 133 mmol/L (136-145); Total Protein,Serum 6.8 g/dl (6.3-8.2)
--- NOTE | 2023-11-23 11:09 | XR_ITS ---
FINAL REPORT CLINICAL HISTORY: Leukocytosis COMPARISON: 11/21/2023 FINDINGS: SINGLE-VIEW CHEST There is cardiomegaly. The mediastinum is normal. The lungs are underinflated. There is no pneumothorax. There is posterior fusion hardware in the lower thoracic and upper lumbar spine. There are advanced changes of osteoarthritis of the left shoulder. IMPRESSION: No acute cardiopulmonary process. Reviewed, Interpreted and Dictated by Corwin Peña MD Transcribed by Sarai Rodríguez Authenticated and . [facility]
[2023-11-23 11:32] LABS: POC Glucose,Bedside 249 (70-110)
[2023-11-23 11:48] LABS: Microscopic, Urine URINE MICROSCOPIC (MICROSCOPIC)
[2023-11-23 11:59] LABS: Appearance,Urine CLEAR (Clear); Blood, Urine 2+ (Negative); Color,Urine YELLOW (Yellow); Glucose,Urine (UA) 2+ (Negative); Ketones,Urine TRACE (Negative); Leukocyte Esterase,Urine TRACE (Negative); Nitrate,Urine Negative (Negative); PH,Urine 5.5 (5.0-8.5); Protein,Urine 1+ (Negative); Specific Gravity, Urine >= 1.030 (1.005-1.030)
[2023-11-23 12:00] VITALS: BP 133/66; PULSE 70; RESP 19; TEMP 36.3; O2SAT 95
[2023-11-23 12:01] VITALS: BMI 28.8
[2023-11-23 12:07] LABS: Bilirubin,Urine 1+ (Negative)
[2023-11-23 12:08] LABS: Bacteria,Urine 1+ /lpf; Yeast,Urine 3+ /lpf
[2023-11-23] MEDS: AMOXICILLIN/POT CLAVULAN 500MG TABLET 1 EACH PO ×2 (14:25→20:29)
[2023-11-23 14:47] LABS: Basophils # 0.1 K/mm3 (0-0.2); Basophils % 0.9 % (0.1-2.0); Eosinophils # 0.1 K/mm3 (0.0-0.4); Eosinophils % 1.3 % (0.1-12.0); Hematocrit 39.5 % (37.0-47.0); Hemoglobin 12.5 g/dL (12.2-16.2); Lymphocytes # 2.3 K/mm3 (0.7-4.5); Lymphocytes % 20.4 % (10-50); Mean Corpuscular HGB Conc 31.5 g/dL (31.8-35.4); Mean Corpuscular Volume 104.6 fl (81-99); Mean Platelet Volume 7.6 fl (7.4-10.4); Monocytes # 0.8 K/mm3 (0.1-1.0); Monocytes % 6.7 % (1.7-9.3); Neutrophils # 7.9 K/mm3 (1.8-7.8); Neutrophils % 70.7 % (37.0-80.0); Platelet Count 294 K/mm3 (142-424); Red Blood Count 3.78 M/mm3 (4.20-5.40); Red Cell Distribution Width 14.5 % (11.5-17.5); White Blood Count 11.2 K/mm3 (4.8-10.8)
--- NOTE | 2023-11-23 15:45 | EXP.PN ---
Subjective *Date: 11/23/23 *Time: 15:50 Interval history: Patient is a lot less confused and conversational today. Responded to questions appropriately. Exam Data for Last 24 hours Vital signs and Labs for Last 24 Hours: Temp Pulse Resp BP Pulse Ox O2 Del Method 97.4 F L 70 19 133/66 95 Room Air 11/23/23 12:00 11/23/23 12:00 11/23/23 12:00 11/23/23 12:00 11/23/23 12:00 11/23/23 15:00 Laboratory Results - last 24 hr 11/21/23 20:22: Hepatitis C Antibody Non reactive, Hep C Ab Comment Comment 11/22/23 16:40: POC Glucose 209 H 11/22/23 16:54: Folate 14.40 11/22/23 21:22: POC Glucose 151 H 11/23/23 06:29: WBC 11.3 H D, RBC 3.86 L, Hgb 12.7, Hct 40.5, MCV 105.0 H, MCH 33.0 H, MCHC 31.5 L, RDW 14.9, Plt Count 315, MPV 8.7, Neut % (Auto) 67.9, Lymph % (Auto) 24.0, [place] % (Auto) 6.1, Eos % (Auto) 1.1, Baso % (Auto) 0.9, Neut # (Auto) 7.7, Lymph # (Auto) 2.7, Carl[place] # (Auto) 0.7, Eos # (Auto) 0.1, Baso # (Auto) 0.1, Sodium 133 L, Potassium 3.8, Chloride 102, Carbon Dioxide 23, Anion Gap 11.8, BUN 29 H D, Creatinine 1.00, Estimated Creat Clear 60, Estimated GFR 54 L, Est GFR ( Amer) 66, Glucose 198 H, Calcium 9.2, Total Bilirubin 0.6, Direct Bilirubin 0.4, Conjugated Bilirubin 0.0, Indirect Bilirubin 0.2, Unconjugated Bilirubin 0.2, AST 26, ALT 14 D, Alkaline Phosphatase 80, Total Protein 6.8, Albumin 3.9 D, Vitamin B12 > 1000 H, TSH 0.66 11/23/23 07:35: POC Glucose 291 H 11/23/23 10:56: POC Glucose 249 H 11/23/23 11:30: Urine Color Yellow, Urine Appearance Clear, Urine pH 5.5, Ur Specific [place] >= 1.030, Urine Protein 1+ A, Urine Glucose (UA) 2+, Urine Ketones Trace, Urine Blood 2+ A, Urine Nitrate Negative, Urine Bilirubin 1+ A, Urine Urobilinogen 1.0, Ur Leukocyte Esterase Trace, Urine RBC 3-5, Urine WBC 5-10, Ur Squamous Epith Cells 3-5, Urine Bacteria 1+, Urine Yeast 3+ 11/23/23 14:23: WBC 11.2 H, RBC 3.78 L, Hgb 12.5, Hct 39.5, MCV 104.6 H, MCH 33.0 H, MCHC 31.5 L, RDW 14.5, Plt Count 294, MPV 7.6, Neut % (Auto) 70.7, Lymph % (Auto) 20.4, Carl[place] % (Auto) 6.7, Eos % (Auto) 1.3, Baso % (Auto) 0.9, Neut # (Auto) 7.9 H, Lymph # (Auto) 2.3, Carlton # (Auto) 0.8, Eos # (Auto) 0.1, Baso # (Auto) 0.1 I & O for Last 24 hours: Intake & Output 11/20/23 11/21/23 11/22/23 11/23/23 23:59 23:59 23:59 23:59 Intake Total 100 / 211 231 / 231 Output Total 1300 / 1300 950 / 1300 800 / 800 Balance -1300 / -1300 -850 / -1089 -569 / -569 Weight 73.142 kg 76.43 kg 76.45 kg Constitutional Comments: Constitutional Constitutional: no acute distress, average body habitus, chronically ill appearing and cooperative *Routine HEENT Exam Head: Present normocephalic Eye: Present EOMI ENT: Present mucous membranes moist Comments: Edentulous *Routine Neck Exam Neck: Present supple; Absent carotid bruit *Routine Respiratory Exam Respiratory: Present CTA bilaterally; Absent respiratory distress, rhonchi, wheezes or crackles *Routine Cardiovascular Exam Cardiovascular: Present RRR *Routine Abdominal Exam Abdominal: Present soft *Routine Rectal Exam Rectal:: deferred *Routine Genitalia Exam Genitalia:: deferred Comment:: Fletcher in place *Routine Extremities Exam Extremities: Present pulses intact; Absent cyanosis, normal capillary refill or calf tenderness Comments: Contracture in both upper and lower extremities. Functionally quadriplegic *Routine Skin Exam Skin: Present intact; Absent jaundice Comments: Blanchable red spot on sacrum *Routine Neurological Exam Neurological: Present alert, motor deficit and hearing grossly intact; Absent moving all extremities, normal tone or normal speech Comments: Significant residual deficits from previous CVAs. Contractures of upper and lower extremities. *Routine Neurological Exam Neurological: Present alert Assessment and Plan *Assessment and plan (1) Encephalopathy acute: Status: Acute Category: Medical Code(s): G93.40 - Encephalopathy, unspecified (2) Delirium: Status: Acute Category: Medical Code(s): R41.0 - Disorientation, unspecified (3) CVA (cerebral vascular accident): Status: Acute Qualifiers: CVA mechanism: unspecified Qualified Code(s): I63.9 - Cerebral infarction, unspecified Category: Medical Code(s): I63.9 - Cerebral infarction, unspecified (4) HTN (hypertension): Status: Acute Qualifiers: Hypertension type: unspecified Qualified Code(s): I10 - Essential (primary) hypertension Category: Medical Code(s): I10 - Essential (primary) hypertension Plan Ms. Agosto is a 72-year-old female with history of CVA with resultant deficits of bilateral upper and lower extremities, chronic pain, sacral decubitus wound, hypertension, hyperlipidemia. Presented to the ER complaining of choking. #Acute metabolic encephalopathy, resolved #Hospital-acquired delirium, superimposed #Stroke related quadriplegia, chronic #Leukocytosis ? Patient is a lot less confused today, agitated, encephalopathic. Responding to most questions appropriately. Significant improvement from yesterday alluding to likely hospital-acquired delirium. ? However, patient does have a leukocytosis today 11.2. UA does show possible UTI. CXR unremarkable. Urine culture, blood cultures pending. ? Patient has his at least 2 strokes in the past that Guerra left her quadriplegic, bedbound at home with her . ? CT head unremarkable for acute findings. ? Started Augmentin empirically for leukocytosis given likely UTI. ? Follow-up blood cultures, urine cultures. ? Follow-up morning WBC. #Dysphagia ? Patient complains of choking sensation ongoing for a while. ? Patient is on alendronate which can cause esophagitis. Counseled , primary philosophy instructor, about keeping her upright position after taking alendronate for at least 30 minutes. ? Currently on mechanically soft diet. ? Speech therapy consulted, pending recommendations. ? Patient is tolerating diet more appropriately today. #Malignant hypertension, resolved #Hypertension ? Resumed home irbesartan 150 mg, carvedilol 25 mg, hydrochlorothiazide 12.5 mg - Stressed the importance of compliant with blood pressure medication regimen as prescribed ? Initially thought to be CHF related given elevated BNP, however this could be due to age and patient also did not have signs of fluid overload. Continue home baclofen 10 mg 3 times a day for spasm Continue home gabapentin 600 mg 3 times a day for neuropathy Given her diabetes, continue home metformin 1000 mg twice daily along with sliding scale insulin with fingersticks ACHS. continue home oxycodone 10 mg 4 times a day as needed for severe pain Continue home Paxil 60 mg for mood Continue home Seroquel 50 for sleep Continue home senna 8.6 mg capsule twice daily for constipation
[2023-11-23 16:00] VITALS: BP 144/58; PULSE 55; PULSE 65; RESP 18; TEMP 36.6; O2SAT 97
--- NOTE | 2023-11-23 16:01 | HMH.SLDYSPHA ---
Speech & Language Evaluation Speech/Language Dysphagia Evaluation Start: 11/23/23 15:25 Freq: ONCE Status: Active Protocol: Document 11/23/23 15:26 MIA (Rec: 11/23/23 15:57 ECLARK Laptop) Co-signed By ST Yamileth Dysphagia Assess/Goals/Plan Assessment Date of Evaluation: 11/23/23 Evaluation Type Initial Certification Assessment/Problems stroke protocol per MD order Does Patient Qualify for Service No Qualify/Failure Comment Based on clinical observations made throughout the bedside clinical swallow evaluation and nursing/family interview, further skilled speech therapy services are not warranted at this time d/t no overt s/sx of aspiration and pt at baseline cognitive-linguistic status. Recommendations PHYSICIAN CERTIFICATION: The specified therapy services are required, authorized, and reviewed every 30 days. Diet Recommendations Mechanical Soft Liquid Type Recommendations Normal/Thin SL Swallow Guidelines Assist w/all meals,Alt bite w/ sip thru meal,Standard Aspiration Prec.,Eat at slow rate,Oral Care Education,Oral care pre/post meals Dysphagia Swallow Precautions/Strategies Sitting Upright (90 deg),Small Bites and Sips,Alternate Liquids/Solids Plan Pt/Guardian verbally ack understanding Yes of dx/prognosis/goals G -code Required No Education Instructions provided APPOINTMENT SPECIALIST discussed clinical observations made throughout bedside CSE, aspiration precautions/compensatory strategies, and diet recommendations with pt/family , nursing, and CM, all of which expressed understanding. Pt/Caregiver able to recall information Able to recall/restate Reinforcement needed Yes Speech & Language HPI History Present Illness Description of Patient Problem APPOINTMENT SPECIALIST copied the following information from pt's H&, chest X-ray, and head CT: Ms. Agosto is a 72-year-old female with history of CVA with resultant deficits of bilateral upper and lower extremities, chronic pain, sacral decubitus wound, hypertension, hyperlipidemia. At home today stated to her that she was choking. He was concerned she was having a hard time breathing. EMS was contacted and she was brought to the ER for her multiple complaints. Did not require oxygen in transport. Also was complaining of pain all over, primarily in her tailbone. My bottom is hurting . Afebrile. Blood pressure severely elevated in the ER. reports that she has not been taking her valsartan/HCTZ due to concerns causing her headaches. Patient otherwise at baseline level of function. Given concern for mild CHF exacerbation, malignant hypertension with systolics above 200, medicine consulted for admission and further management. Of note, reports that about a month ago, she was seen for the same complaint at an urgent care treatment center and was prescribed azithromycin for pneumonia. On arrival to the floor, patient in no acute distress. Catheter in place with clear urine after receiving diuretics in the ER. Blood pressure showing some improvement with systolic of 160. Stable on room air. Chest X-ray: FINDINGS: SINGLE-VIEW CHEST There is cardiomegaly. The mediastinum is normal. The lungs are underinflated. There is no pneumothorax. There is posterior fusion hardware in the lower thoracic and upper lumbar spine. There are advanced changes of osteoarthritis of the left shoulder. Head CT: FINDINGS: Brain: No evidence for intracranial hemorrhage, mass lesions or acute stroke. Intracranial vascular calcifications. Moderate small vessel ischemic change in the periventricular white matter. Old bilateral thalamic lacunar infarcts. Old bilateral inferior cerebellar infarcts image 3/7. Cerebral ventricles: Ventricular prominence. Pituitary gland and sella: Negative Paranasal sinuses: Visualized sinuses are unremarkable. No fluid levels. Mastoid air cells: Visualized mastoid air cells are well aerated. Orbital cavities: Bilateral cataract extractions. Parotid and submandibular glands: Negative Bones: Unremarkable. No acute fracture. Soft tissues: Unremarkable. Vasculature: Negative. Other findings: Mild generalized atrophy. Rehab Services Assessed Speech therapy Language Primary Language Malian Therapy History Seen by other SL therapists No General Information General Current Food Consistancy Mechanical Soft,Thin Liquids Dentition Edentulous Patient Orientation Person Ability to Follow Directions Good Communication Ability Mild Impairment Dysphagia:Food Presentation Evaluation Food Type Pureed,Mechanical Soft,Liquid, Pudding Dysphagia Evaluation Mechanical Soft Residual on tongue Food Behavior Response Dysphagia Evaluation Summary A bedside CSE was administered on this date with pt sitting upright and edentulous. Bolus consistencies administered include thin liquid (water) via cup and straw, pudding, puree (applesauce), and mechanical soft (Nutrigrain bar). All bolus presentations given x2 to assess for fatigue and consistency. Pt exhibited no overt s/sx of aspiration with any consistencies trialed . Lingual residue observed on mechanical soft trial, which was cleared with liquid wash. Prolonged mastication and manipulation of bolus during mechanical soft trial d/t dentition. APPOINTMENT SPECIALIST recommends mechanical soft/thin liquid diet w/ aspiration precautions /compensatory strategies including small bites and sips , alternating bites and sips, sitting upright while eating, and sitting upright 30-60 minutes after eating. Stroke Dysphagia Assessment PHYSICIAN CERTIFICATION: I certify the specified therapy services for Yolanda Agosto are required, authorized, and reviewed every 30 days.
[2023-11-23 16:19] LABS: POC Glucose,Bedside 199 (70-110)
--- NOTE | 2023-11-23 19:29 | PC.NURSE ---
pt is currently resting in bed. pt has made great improvement from condition yesterday. pt is a&o x4, able to answer questions and contribute to conversation. has been at bedside all day, assisting with feeding. pt has had a great appetite. was able to take all po medication with no issues this morning both with applesauce and by themselves. speech evaluated today and pt was cleared from their standpoint. hospice visited with family and pt and decided that she does not meet criteria for their services. pt plan is to go home with home health. no complaints at this time. call light within reach and bed in low and locked position
[2023-11-23 20:00] VITALS: BP 146/81; PULSE 57; PULSE 63; RESP 16; TEMP 36.8; O2SAT 94
[2023-11-23] MEDS: ATORVASTATIN 40MG TABLET 40 MG PO (20:29)
[2023-11-23] MEDS: PARoxetine 20MG TABLET 60 MG PO (20:29)
[2023-11-23] MEDS: QUETIAPINE 25MG TABLET 50 MG PO (20:29)
[2023-11-23 20:51] LABS: POC Glucose,Bedside 228 (70-110)
[2023-11-24] VITALS: BP 155/71; PULSE 58; PULSE 63; RESP 18; TEMP 36.6; O2SAT 96
[2023-11-24] MEDS: OXYCODONE 10MG W/APAP 325MG TABLET 1 EACH PO (02:00)
[2023-11-24] MEDS: BACLOFEN 10MG TABLET 10 MG PO ×2 (02:01→12:21)
[2023-11-24 04:00] VITALS: BP 123/58; PULSE 47; PULSE 57; RESP 16; TEMP 36.7; O2SAT 97; BMI 28.5
--- NOTE | 2023-11-24 05:39 | PC.NURSE ---
Patient appeared to be much more alert and oriented this shift. Patient was able to have conversations with staff and respond with appropriate responses; however, periods of confusion and yelling out continues to occasionally occur. Patient was able to take her scheduled PO medications whole by mouth with a sip of water behind it. Patient was assisted with feeding; a vanilla pudding and a chocolate pudding was provided for a bedtime snack. Her has remained at bedside throughout the night. Patient has had adequate output from her Fletcher catheter; urine was clear and yellow with a strong odor. Patient has complained of generalized pain once this shift; she has been treated per APR and was able to rest after receiving. She was observed to have eyes closed, respirations even and unlabored on room air, and no apparent distress throughout the majority of the night. Patient has been turning every two hours in bed by staff to relieve pressure on her bottom; patient has a stage 2 pressure ulcer on her coccyx. She has not reported any sacral pain this shift. Upon auscultation of her lungs, some crackling could be heard. Her bowel sounds were active in all quadrants; patient had 1 large bowel movement this shift. Patient's heart rate has been slightly bradycardic this shift. All four of the patient's extremities are weak, but patient was noticed to be able to raise her left arm without difficulty. Abnormal flexion of her wrists are noted. Patient has a cardiology and case management consult ordered. Blood cultures are still pending. Patient does not have any further complaints at this time. No acute changes noted. Call light within reach.
[2023-11-24] MEDS: humaLOG 100 UNITS/ML 10ML VIAL (SSI) SQ ×2 (06:18→12:21)
[2023-11-24 06:19] LABS: POC Glucose,Bedside 160 (70-110)
[2023-11-24 06:56] LABS: Chloride 97 mmol/L (98-107)
[2023-11-24 06:57] LABS: Potassium 3.9 mmoL/L (3.5-5.1); Sodium 131 mmol/L (136-145)
[2023-11-24 06:59] LABS: Blood Urea Nitrogen 23 mg/dl (7-17); Creatinine Clearance Estimated 59 mL/min (50-200); Estimated Glomerular Filt Rate 82 ml/min (>60); GFR (African American) 99 ML/MIN (>60)
[2023-11-24 07:00] LABS: Anion Gap 11.9 mEq/L (5-15); Carbon Dioxide 26 mmol/L (22.0-30.0); Glucose 166 mg/dl (74-100)
[2023-11-24 07:32] LABS: Basophils # 0.1 K/mm3 (0-0.2); Basophils % 0.9 % (0.1-2.0); Eosinophils # 0.2 K/mm3 (0.0-0.4); Eosinophils % 1.5 % (0.1-12.0); Hematocrit 39.8 % (37.0-47.0); Hemoglobin 12.4 g/dL (12.2-16.2); Lymphocytes # 2.8 K/mm3 (0.7-4.5); Lymphocytes % 27.2 % (10-50); Mean Corpuscular HGB Conc 31.2 g/dL (31.8-35.4); Mean Corpuscular Hemoglobin 32.8 pg (27.0-31.2); Mean Platelet Volume 7.6 fl (7.4-10.4); Monocytes # 0.6 K/mm3 (0.1-1.0); Monocytes % 5.6 % (1.7-9.3); Neutrophils # 6.5 K/mm3 (1.8-7.8); Neutrophils % 64.7 % (37.0-80.0); Platelet Count 285 K/mm3 (142-424); Red Blood Count 3.79 M/mm3 (4.20-5.40); Red Cell Distribution Width 14.5 % (11.5-17.5); White Blood Count 10.1 K/mm3 (4.8-10.8)
[2023-11-24 08:00] VITALS: BP 146/65; PULSE 55; PULSE 61; RESP 18; TEMP 36.8; O2SAT 97
[2023-11-24] MEDS: ASPIRIN EC 81MG TABLET 81 MG PO (09:47)
[2023-11-24] MEDS: IRBESARTAN 300MG TABLET 300 MG PO (09:47)
[2023-11-24] MEDS: GABAPENTIN 600MG TABLET 600 MG PO ×2 (09:47→12:21)
[2023-11-24] MEDS: CARVEDILOL 25MG TABLET 25 MG PO (09:47)
[2023-11-24] MEDS: AMOXICILLIN/POT CLAVULAN 500MG TABLET 1 EACH PO (09:47)
[2023-11-24] MEDS: CLOPIDOGREL 75MG TAB 75 MG PO (09:48)
[2023-11-24] MEDS: hydroCHLOROthiazide 12.5MG CAPSULE 12.5 MG PO (09:48)
[2023-11-24] MEDS: DOCUSATE SODIUM 250MG CAPSULE 250 MG PO (09:48)
[2023-11-24] MEDS: EMPAGLIFLOZIN 10MG TABLET 20 MG PO (09:48)
[2023-11-24] MEDS: NICOTINE 21MG/24HR PATCH 21 MG TD (11:19)
[2023-11-24 11:32] LABS: POC Glucose,Bedside 313 (70-110)
--- NOTE | 2023-11-24 11:58 | EXP.DC.SUM ---
General Admission date:: 11/21/23 HPI HPI HPI: Ms. Agosto is a 72-year-old female with history of CVA with resultant deficits of bilateral upper and lower extremities, chronic pain, sacral decubitus wound, hypertension, hyperlipidemia. At home today stated to her that she was choking. He was concerned she was having a hard time breathing. EMS was contacted and she was brought to the ER for her multiple complaints. Did not require oxygen in transport. Also was complaining of pain all over, primarily in her tailbone. My bottom is hurting . Afebrile. Blood pressure severely elevated in the ER. reports that she has not been taking her valsartan/HCTZ due to concerns causing her headaches. Patient otherwise at baseline level of function. Given concern for mild CHF exacerbation, malignant hypertension with systolics above 200, medicine consulted for admission and further management. Of note, reports that about a month ago, she was seen for the same complaint at an urgent care treatment center and was prescribed azithromycin for pneumonia. On arrival to the floor, patient in no acute distress. Catheter in place with clear urine after receiving diuretics in the ER. Blood pressure showing some improvement with systolic of 160. Stable on room air. Hospital Course Hospital Course Hospital Course: Ms. Agosto is a 72-year-old female with history of CVA with resultant deficits of bilateral upper and lower extremities, chronic pain, sacral decubitus wound, hypertension, hyperlipidemia. Presented to the ER complaining of choking. #Dysphagia - Patient's sensation of choking self-resolved during course of hospitalization. She mentation did wax and wane during hospital course, see below. - Speech therapy consulted, patient demonstrated no signed of choking. Patient has advanced dementia so it is unclear if there was a true mechanical vs other obstruction. - Speech recommended mechanical soft with thin liquid diet as safety precaution. ? Patient is on alendronate which can cause esophagitis. Counseled , primary automobile locator, about keeping her upright position after taking alendronate for at least 30 minutes. - If patient continues to have a choking sensation, I recommended (primary automobile locator) to follow-up with GI for further evaluation. ? Patient is tolerating diet appropriately today. Medically stable for discharge. #Dementia #Acute metabolic encephalopathy, resolved #Hospital-acquired delirium, superimposed #Stroke related quadriplegia, chronic ? Patient has had at least 2 strokes in the past that Charlie left her quadriplegic, bedbound at home with her . ? CT head unremarkable for acute findings. ? Patient acute confusion has resolved today, but dementia remains. Responding to questions at baseline. Significant improvement from yesterday alluding to likely hospital-acquired delirium. - It was discovered patient's UA suggested UTI with leukocytosis, possible contributing to confusion. Treated with Augmentin. Blood cultures negative. - Dishcharged with 3 more days of Augmentin for UTI. #Malignant hypertension, resolved #Hypertension ? Resumed home irbesartan 150 mg, carvedilol 25 mg, hydrochlorothiazide 12.5 mg - Stressed the importance of adherence with blood pressure medication regimen as prescribed ? Initially thought to be CHF related given elevated BNP, however this could be due to age and patient also did not have signs of fluid overload. Continue home baclofen 10 mg 3 times a day for spasm Continue home gabapentin 600 mg 3 times a day for neuropathy Given her diabetes, continue home metformin 1000 mg twice daily along with sliding scale insulin with fingersticks ACHS. continue home oxycodone 10 mg 4 times a day as needed for severe pain Continue home Paxil 60 mg for mood Continue home Seroquel 50 for sleep Continue home senna 8.6 mg capsule twice daily for constipation Exam Data for Last 24 hours Vital signs and Labs for Last 24 Hours: Temp Pulse Resp BP Pulse Ox O2 Del Method 98.2 F 61 18 146/65 H 97 Room Air 11/24/23 08:00 11/24/23 08:00 11/24/23 08:00 11/24/23 08:00 11/24/23 08:00 11/24/23 06:54 Laboratory Results - last 24 hr 11/23/23 11:30: Urine Color Yellow, Urine Appearance Clear, Urine pH 5.5, Ur Specific [place] >= 1.030, Urine Protein 1+ A, Urine Glucose (UA) 2+, Urine Ketones Trace, Urine Blood 2+ A, Urine Nitrate Negative, Urine Bilirubin 1+ A, Urine Urobilinogen 1.0, Ur Leukocyte Esterase Trace, Urine RBC 3-5, Urine WBC 5-10, Ur Squamous Epith Cells 3-5, Urine Bacteria 1+, Urine Yeast 3+ 11/23/23 14:23: WBC 11.2 H, RBC 3.78 L, Hgb 12.5, Hct 39.5, MCV 104.6 H, MCH 33.0 H, MCHC 31.5 L, RDW 14.5, Plt Count 294, MPV 7.6, Neut % (Auto) 70.7, Lymph % (Auto) 20.4, [place] % (Auto) 6.7, Eos % (Auto) 1.3, Baso % (Auto) 0.9, Neut # (Auto) 7.9 H, Lymph # (Auto) 2.3, [place] # (Auto) 0.8, Eos # (Auto) 0.1, Baso # (Auto) 0.1 11/23/23 16:12: POC Glucose 199 H 11/23/23 20:41: POC Glucose 228 H 11/24/23 06:06: POC Glucose 160 H 11/24/23 06:12: WBC 10.1, RBC 3.79 L, Hgb 12.4, Hct 39.8, MCV 105.0 H, MCH 32.8 H, MCHC 31.2 L, RDW 14.5, Plt Count 285, MPV 7.6, Neut % (Auto) 64.7, Lymph % (Auto) 27.2, [place] % (Auto) 5.6, Eos % (Auto) 1.5, Baso % (Auto) 0.9, Neut # (Auto) 6.5, Lymph # (Auto) 2.8, [place] # (Auto) 0.6, Eos # (Auto) 0.2, Baso # (Auto) 0.1, Sodium 131 L, Potassium 3.9, Chloride 97 L, Carbon Dioxide 26, Anion Gap 11.9, BUN 23 H, Creatinine 0.70 D, Estimated Creat Clear 59, Estimated GFR 82, Est GFR ( Amer) 99 D, Glucose 166 H, Calcium 9.0 11/24/23 11:21: POC Glucose 313 H* I & O for Last 24 hours: Intake & Output 11/21/23 11/22/23 11/23/23 11/24/23 23:59 23:59 23:59 23:59 Intake Total 100 / 211 501 / 1001 980 / 980 Output Total 1300 / 1300 950 / 1300 2000 / 3400 1900 / 1900 Balance -1300 / -1300 -850 / -1089 -1499 / -2399 -920 / -920 Weight 73.142 kg 76.43 kg 76.45 kg 75.977 kg Microbiology Reports for the Last 24 Hours: Microbiology 11/23/23 11:30 Blood Blood Culture - Preliminary NO GROWTH AFTER 24 HOURS 11/23/23 11:30 Blood Blood Culture - Preliminary NO GROWTH AFTER 24 HOURS Constitutional Comments: Constitutional Constitutional: no acute distress, average body habitus, chronically ill appearing and cooperative *Routine HEENT Exam Head: Present normocephalic Eye: Present EOMI ENT: Present mucous membranes moist Comments: Edentulous *Routine Neck Exam Neck: Present supple; Absent carotid bruit *Routine Respiratory Exam Respiratory: Present CTA bilaterally; Absent respiratory distress, rhonchi, wheezes or crackles *Routine Cardiovascular Exam Cardiovascular: Present RRR *Routine Abdominal Exam Abdominal: Present soft *Routine Rectal Exam Rectal:: deferred *Routine Genitalia Exam Genitalia:: deferred Comment:: Fletcher in place *Routine Extremities Exam Extremities: Present pulses intact; Absent cyanosis, normal capillary refill or calf tenderness Comments: Contracture in both upper and lower extremities. Functionally quadriplegic *Routine Skin Exam Skin: Present intact; Absent jaundice Comments: Blanchable red spot on sacrum *Routine Neurological Exam Neurological: Present alert, motor deficit and hearing grossly intact; Absent moving all extremities, normal tone or normal speech Comments: Significant residual deficits from previous CVAs. Contractures of upper and lower extremities. *Routine Neurological Exam Neurological: Present alert Results Data Completed and Pending Labs on day of discharge: Labs from last 24 hours 11/24/23 11/24/23 11/24/23 11:21 06:12 06:06 WBC 10.1 RBC 3.79 L Hgb 12.4 Hct 39.8 MCV 105.0 H MCH 32.8 H MCHC 31.2 L RDW 14.5 Plt Count 285 MPV 7.6 Neut % (Auto) 64.7 Lymph % (Auto) 27.2 [place] % (Auto) 5.6 Eos % (Auto) 1.5 Baso % (Auto) 0.9 Neut # (Auto) 6.5 Lymph # (Auto) 2.8 [place] # (Auto) 0.6 Eos # (Auto) 0.2 Baso # (Auto) 0.1 Sodium 131 L Potassium 3.9 Chloride 97 L Carbon Dioxide 26 Anion Gap 11.9 BUN 23 H Creatinine 0.70 D Estimated Creat Clear 59 Estimated GFR 82 Est GFR ( Amer) 99 D Glucose 166 H POC Glucose 313 H* 160 H Calcium 9.0 Urine Color Urine Appearance Urine pH Ur Specific [place] Urine Protein Urine Glucose (UA) Urine Ketones Urine Blood Urine Nitrate Urine Bilirubin Urine Urobilinogen Ur Leukocyte Esterase Urine RBC Urine WBC Ur Squamous Epith Cells Urine Bacteria Urine Yeast 11/23/23 11/23/23 11/23/23 20:41 16:12 14:23 WBC 11.2 H RBC 3.78 L Hgb 12.5 Hct 39.5 MCV 104.6 H MCH 33.0 H MCHC 31.5 L RDW 14.5 Plt Count 294 MPV 7.6 Neut % (Auto) 70.7 Lymph % (Auto) 20.4 [place] % (Auto) 6.7 Eos % (Auto) 1.3 Baso % (Auto) 0.9 Neut # (Auto) 7.9 H Lymph # (Auto) 2.3 [place] # (Auto) 0.8 Eos # (Auto) 0.1 Baso # (Auto) 0.1 Sodium Potassium Chloride Carbon Dioxide Anion Gap BUN Creatinine Estimated Creat Clear Estimated GFR Est GFR ( Amer) Glucose POC Glucose 228 H 199 H Calcium Urine Color Urine Appearance Urine pH Ur Specific [place] Urine Protein Urine Glucose (UA) Urine Ketones Urine Blood Urine Nitrate Urine Bilirubin Urine Urobilinogen Ur Leukocyte Esterase Urine RBC Urine WBC Ur Squamous Epith Cells Urine Bacteria Urine Yeast 11/23/23 11:30 WBC RBC Hgb Hct MCV MCH MCHC RDW Plt Count MPV Neut % (Auto) Lymph % (Auto) [place] % (Auto) Eos % (Auto) Baso % (Auto) Neut # (Auto) Lymph # (Auto) [place] # (Auto) Eos # (Auto) Baso # (Auto) Sodium Potassium Chloride Carbon Dioxide Anion Gap BUN Creatinine Estimated Creat Clear Estimated GFR Est GFR ( Amer) Glucose POC Glucose Calcium Urine Color Yellow Urine Appearance Clear Urine pH 5.5 Ur Specific [place] >= 1.030 Urine Protein 1+ A Urine Glucose (UA) 2+ Urine Ketones Trace Urine Blood 2+ A Urine Nitrate Negative Urine Bilirubin 1+ A Urine Urobilinogen 1.0 Ur Leukocyte Esterase Trace Urine RBC 3-5 Urine WBC 5-10 Ur Squamous Epith Cells 3-5 Urine Bacteria 1+ Urine Yeast 3+ Preliminary micro results at discharge 11/23/23 11:30 Blood Culture - Preliminary Blood NO GROWTH AFTER 24 HOURS 11/23/23 11:30 Blood Culture - Preliminary Blood NO GROWTH AFTER 24 HOURS DS: Diagnosis Discharge Diagnosis (1) Encephalopathy acute: Status: Resolved Code(s): G93.40 - Encephalopathy, unspecified (2) Delirium: Status: Acute Code(s): R41.0 - Disorientation, unspecified (3) CVA (cerebral vascular accident): Status: Acute Code(s): I63.9 - Cerebral infarction, unspecified Qualifiers: CVA mechanism: unspecified Qualified Code(s): I63.9 - Cerebral infarction, unspecified (4) HTN (hypertension): Status: Acute Code(s): I10 - Essential (primary) hypertension Qualifiers: Hypertension type: unspecified Qualified Code(s): I10 - Essential (primary) hypertension Meds Home Medications and Allergies Home Medications ?Medication ?Instructions ?Recorded ?Confirmed ?Type alendronate 70 mg tablet 70 mg PO WEEKLY Osteoporosis 84 12/29/21 11/22/23 Rx days #12 tabs melatonin-pyridoxine HCl (vitamin 1 tab PO HS SLEEP 30 days #30 tabs 12/29/21 11/22/23 Rx B6) 5 mg-10 mg tablet carvedilol 25 mg tablet 25 mg PO BID Hypertension #180 tabs 01/04/23 11/22/23 Rx baclofen 10 mg tablet 10 mg PO Q8H MUSCLE SPASM 02/09/23 11/22/23 History docusate sodium 250 mg capsule 250 mg PO BID Constipation 02/09/23 11/22/23 History (Stool Softener) hydroxyzine HCl 10 mg tablet 10 mg PO BID Anxiety 02/09/23 11/22/23 History metformin 1,000 mg tablet 1,000 mg PO BIDWMEAL Diabetes 02/09/23 11/22/23 History quetiapine 50 mg tablet 50 mg PO HS SLEEP 02/09/23 11/22/23 History aspirin 81 mg tablet,delayed 81 mg PO DAILY Heart Disease 04/02/23 11/22/23 History release atogepant 60 mg tablet (Qulipta) 60 mg PO DAILY MIGRAINES 04/02/23 11/22/23 History insulin aspar prt-insulin aspart 12 unit SQ DAILY Diabetes 04/02/23 11/22/23 History 100 unit/mL (70-30) subcutaneous soln (Novolog Mix 70-30 U-100 Insuln) insulin glargine 100 32 unit SQ DAILY Diabetes 04/02/23 11/22/23 History unit-lixisenatide 33 mcg/mL subcutaneous pen (Soliqua 100/33) oxycodone-acetaminophen 10 mg-325 1 tab PO QIDP PRN Moderate Pain 04/02/23 11/22/23 History mg tablet (Scale Score 5-6) blood sugar diagnostic (Accu-Chek #100 ea 04/13/23 11/22/23 Rx Guide test strips) paroxetine HCl 20 mg tablet 60 mg (3 x 20 mg) PO HS MOOD 90 05/18/23 11/22/23 Rx days #270 tabs gabapentin 600 mg tablet 600 mg PO TID NERVE PAIN #90 tabs 07/19/23 11/22/23 Rx morphine 15 mg tablet,extended 30 mg PO DAILY 08/08/23 11/22/23 History release naloxegol 25 mg tablet (Movantik) 25 mg PO DAILY 08/08/23 11/22/23 History sennosides 8.6 mg capsule (senna) 8.6 mg PO BID PRN constipation #30 09/06/23 11/22/23 Rx caps benzonatate 100 mg capsule 100 mg PO TIDP PRN Cough #30 caps 09/30/23 11/22/23 Rx atorvastatin 40 mg tablet 40 mg PO DAILY 11/22/23 11/22/23 History clopidogrel 75 mg tablet 75 mg PO DAILY 30 days #30 tabs 11/22/23 Rx hydrochlorothiazide 12.5 mg capsule 12.5 mg PO DAILY 30 days #30 caps 11/22/23 Rx irbesartan 300 mg tablet 300 mg PO DAILY #30 tabs 11/22/23 Rx nicotine 21 mg/24 hr daily 1 patch transdermal DAILY 11/22/23 11/22/23 History transdermal patch amoxicillin 500 mg-potassium 1 tab PO BID #7 tabs 11/24/23 Rx clavulanate 125 mg tablet prochlorperazine maleate 5 mg 5 mg PO TID PRN anxiety or nausea 11/30/23 Rx tablet #60 tabs New Prescriptions to Start Prescriptions: amoxicillin-pot clavulanate Shamar,Casa clopidogrel Shamar,Casa hydrochlorothiazide Shamar,Casa irbesartan [facility] Allergies Allergy/AdvReac Type Severity Reaction Status Date / Time cefuroxime [From CEFTIN] Allergy Mild Verified 09/05/23 15:21 codeine Allergy Verified 09/30/23 16:54 Discharge Plan Disposition Patient Disposition: Home Health Service Condition: Fair Discharge Order Discharge Orders: Discharge Order (Routine); Ordered 11/24/23 Ordered By: Casa Ibanez Follow up Plan Follow up with: Kb Hernández DO [Primary Care Provider] - 12/07/23 1:30 pm Prescriptions/Medication Reconciliation: New clopidogrel 75 mg Tablet 75 mg PO DAILY 30 Days Qty: 30 0RF hydrochlorothiazide 12.5 mg Capsule 12.5 mg PO DAILY 30 Days Qty: 30 0RF irbesartan 300 mg Tablet 300 mg PO DAILY Qty: 30 0RF amoxicillin-pot clavulanate 500-125 mg Tablet 1 tab PO BID Qty: 7 0RF Continued alendronate 70 mg tablet 70 mg PO WEEKLY 84 Days Qty: 12 0RF melatonin-pyridoxine HCl (B6) 5-10 mg tablet 1 tab PO HS 30 Days Qty: 30 0RF docusate sodium [Stool Softener] 250 mg capsule 250 mg PO BID hydroxyzine HCl 10 mg tablet 10 mg PO BID baclofen 10 mg tablet 10 mg PO Q8H metformin 1,000 mg tablet 1,000 mg PO BIDWMEAL quetiapine 50 mg tablet 50 mg PO HS morphine 15 mg tablet extended release 30 mg PO DAILY Movantik 25 mg tablet 25 mg PO DAILY carvedilol 25 mg tablet 25 mg PO BID Qty: 180 3RF (DME) Accu-Chek Guide test strips Strip See Rx Instructions .Route Qty: 100 11RF Rx Instructions: Check fsbs once daily and as needed paroxetine HCl 20 mg tablet 60 mg PO HS 90 Days Qty: 270 3RF gabapentin 600 mg tablet 600 mg PO TID Qty: 90 1RF senna 8.6 mg capsule 8.6 mg PO BID PRN (Reason: constipation) Qty: 30 0RF aspirin 81 mg Tablet,Delayed Release (Dr/Ec) 81 mg PO DAILY oxycodone-acetaminophen 10-325 mg tablet 1 tab PO QIDP PRN (Reason: Moderate Pain (Scale Score 5-6)) insulin asp prt-insulin aspart [Novolog Mix 70-30 U-100 Insuln] 100 unit/mL (70-30) solution 12 unit SQ DAILY Soliqua 100/33 100 unit-33 mcg/mL insulin pen 32 unit SQ DAILY Qulipta 60 mg tablet 60 mg PO DAILY benzonatate 100 mg capsule 100 mg PO TIDP PRN (Reason: Cough) Qty: 30 0RF atorvastatin 40 mg tablet 40 mg PO DAILY nicotine 21 mg/24 hr Patch 24 Hour 1 patch TRANSDERMAL DAILY No Action prochlorperazine maleate 5 mg tablet 5 mg PO TID PRN (Reason: anxiety or nausea) Qty: 60 0RF Problem Reconciliation Problems Reviewed?: Yes Patient Discharge Instructions ACTIVITY: Continue current activity DIET: continue same diet Patient Instructions: Malignant Hypertension, DI for Heart Failure, Catheter-associated Urinary Tract Infection Print Language: [place] Providers Primary Care Provider: Kb Hernández Admit Provider: Santhosh Robertson Attending Provider: Santhosh Robertson
[2023-11-24 12:00] VITALS: BP 140/74; PULSE 65; PULSE 80; RESP 18; TEMP 36.6; O2SAT 96
--- NOTE | 2023-11-24 14:20 | PC.NURSE ---
Per MD Ibanez boyd cath was taken out before discharge, pt voided on her own after boyd was removed.
--- NOTE | 2023-11-28 16:47 | CARE MANAGER ---
Spoke with patient's spouse regarding recent discharge. He stated that patient is doing well and wrote her PCP appt on calender while we were on the phone. No concerns voiced at time of call.
== END 2023-11-24 16:00 | disposition home health service (06) | DRG 305 ==
LOC: ER 15:26 → 2ND 17:23
PROVIDERS: Emergency Medicine; Student in an Organized Health Care Education/Training Program; Admitting Provider Internal Medicine Adolescent Medicine; Emergency Provider Emergency Medicine; PCP Internal Medicine; Visit Provider Internal Medicine Adolescent Medicine
DX: I16.1 Hypertensive emergency (principal); G93.40 Encephalopathy, unspecified; F41.9 Anxiety disorder, unspecified; I25.10 Atherosclerotic heart disease of native coronary artery without angina pectoris; E11.40 Type 2 diabetes mellitus with diabetic neuropathy, unspecified; Z79.4 Long term (current) use of insulin; J44.9 Chronic obstructive pulmonary disease, unspecified; I11.0 Hypertensive heart disease with heart failure; I50.9 Heart failure, unspecified; E11.51 Type 2 diabetes mellitus with diabetic peripheral angiopathy without gangrene; I69.365 Other paralytic syndrome following cerebral infarction, bilateral; R13.10 Dysphagia, unspecified; Z74.01 Bed confinement status; F03.90 Unspecified dementia, unspecified severity, without behavioral disturbance, psychotic disturbance, mood disturbance, and anxiety
CPT/HCPCS: 36415; 70450; 71045; 71275; 80048; 80053; 80076; 81001; 82607; 82746; 82803; 82962; 83735; 83880; 84443; 84484; 85025; 86803; 87040; 87086; 87389; 92610; 93005; 93306; 93308; 93976; 99291; J1940; J2060; J3475; J7120; Q9967

== ENCOUNTER 2024-06-13 14:53 | Outpatient (RCR) | payer MEDICARE, SELFPAY ==
--- NOTE | 2024-06-13 16:13 | HMH.PTOPWND ---
Rehab Outpt Wound Evaluation Rehab OP Wound Evaluation Start: 06/13/24 15:53 Freq: Status: Active Protocol: Document 06/13/24 15:53 JAY (Rec: 06/13/24 16:13 PHORNE [id number]) E-signed By Marck Mathis, PT Subjective/History History History This is the initial PT wound care eval for Yolanda Agosto, 73 yowf who presents with R greater trochanter pressure injury present for 2-3 mos per family report. Pt is poor historian due to complications from prior CVA with R hemiplegia and family members present provide most of the history. She has severely limited mobility and is essentially bed bound, preferring to lay on her R side. This is likely the direct cause of her wound. She c/o pain at all times, but is unable to localize pain well. She has PMH of DM, CAD, CVA, CHF, HTN. Subjective Subjective Pt did not rate pain, but consistently yells out about pain in various areas of her body. 2/4 TTP to romelia-wound skin on the R lateral hip. Wound Eval Wound Right Lateral Hip Wound Type Pressure Ulcer Is This a Chronic Wound Yes Wound Staging Stage III Query Text:Stage I - Unbroken, red skin, no blanching. Stage II - Skin broken, superficial skin loss involving epidermis alone or also dermis. Partial loss of skin layers. Stage III - Pressure area involves epidermis, dermis and subcutaneous tissue, full thickness skin loss. Stage IV - Pressure area involves epidermis, subcutaneous tissue, bone and other supportive tissue. Full thickness skin loss with extensive destruction of underlying tissue and structures. Wound Length (cm) 2.8 Wound Width (cm) 3.6 Wound Depth (cm) 1.0 Wound Bed Appearance Beefy Red Percentage Granulated (%) 100 Wound Margins Description Well Defined Undermining Position 12-4 o'clock Undermining Depth (cm) 1.4 Surrounding Tissue Appearance Dark Red,Purple Drainage Description Serosanguineous Drainage Amount Small Drainage Odor No Odor Wound Topical Solution/Irrigant Saline Irrigant Packing Type Specialty Absorptive Comment opticell Ag Primary Dressing Composite Comment optifoam gentle border Wound Debridement Method Gauze,Mechanical Wound Debridement Amount of Tissue None Removed Dressing Change Patient Tolerance Tolerated Well León-Whitlock Wound Assessment Tool Assessment Wound size 2=Length x Width 4--<16 sq cm Wound depth 3=Full thickness skin loss involving damage or necrosis of Wound edges 3=Well-defined, not attached to wound base Wound undermining 2=Undermining <2 cm in any area Necrotic tissue type 1=Non visible Necrotic tissue amount 1=None visible Exudate type 3=Serosanguineous: thin, watery, pale red/pink Exudate amount 3=Small Skin color surrounding wound 4=Dark red or purple &/or non- blanchable Peripheral tissue edema 1=No swelling or edema Peripheral tissue induration 1=None present Granulation tissue 2=Bright, beefy red;75% to 100 % of wound filled &/or tissue overgrowth Epithelialization 5= < 25% wound covered Wound assessment total score 31 Wound Problems/Impairments Impairments Problems/Impairmments Impaired Strength,Impaired Endurance,Impaired Transfers, Impaired Gait Pattern,Impaired Walking,Impaired Standing, Impaired Sitting,Impaired Balance,Wound Care Needs, Subjective C/O Pain,Impaired Self Care/Self Management Prognosis Rehab Potential Fair Comment Skilled therapy is appropriate to aid reduction of overall wound surface area in order to return pt to [facility] with family assistance. Clinical Impression Consistent with Diagnosis Yes Additional details: L89.219 R lateral hip pressure injury. Short Term Goals Number of Weeks 4 Decrease Wound Area Yes: by 25% Long-Term Goals Number of Weeks 8 Decrease Wound Area Yes: by 75% Outpatient Therapy Plan of Care Treatment Plan May Include Wound Care Yes Eval/Re-Eval Yes Frequency Times per week 0-1 Duration Number of Weeks 8 Addendums This patient is a candidate for social No or vocational rehab? Patient/Guardian verbally acknowledges Yes understanding of treatment program and consents to further treatment? Patient/Guardian verbally acknowledges Yes understanding of diagnosis, prognosis and goals for treatment? Eval Complexity PT Charges 62222 - High Complexity PHYSICIAN CERTIFICATION: I certify the specified therapy services for Yolanda Agosto are required, authorized, and reviewed every 30 days.
== END 2024-06-13 23:59 | disposition home or self-care (01) ==
LOC: PT 14:53
PROVIDERS: PCP Internal Medicine; Visit Provider Internal Medicine
DX: L89.151 Pressure ulcer of sacral region, stage 1 (principal)
CPT/HCPCS: 97163

== ENCOUNTER 2024-07-20 10:09 | Outpatient (CLI) | payer MEDICARE, SELFPAY ==
[2024-07-20 17:21] LABS: Basophils # 0.1 K/mm3 (0-0.2); Basophils % 0.8 % (0.1-2.0); Eosinophils # 0.1 Kmm3 (0.0-0.4); Eosinophils % 0.6 % (0.1-12.0); Hematocrit 39.9 % (37.0-47.0); Hemoglobin 12.2 g/dL (12.2-16.2); Immature Granulocytes # 0.05 10^3uL; Immature Granulocytes % 0.4 %; Lymphocytes # 2.5 K/mm3 (0.7-4.5); Lymphocytes % 19.7 % (10-50); Mean Corpuscular HGB Conc 30.6 g/dL (31.8-35.4); Mean Corpuscular Hemoglobin 32.1 pg (27.0-31.2); Mean Platelet Volume 9.6 fl (7.4-10.4); Monocytes # 1.1 K/mm3 (0.1-1.0); Monocytes % 8.5 % (1.7-9.3); Nucleated Red Blood Cells # 0 10^3/uL; Nucleated Red Blood Cells % 0 %; Platelet Count 348 K/mm3 (142-424); Red Cell Distribution Width 13.2 % (11.5-17.5); Red Cell Distribution Width-SD 50.9 fL; White Blood Count 12.8 K/mm3 (4.8-10.8)
[2024-07-20 17:49] LABS: Albumin Level 3.8 g/dl (3.5-5.0); Chloride 104 mmol/L (98-107); Potassium 4.4 mmoL/L (3.5-5.1); Sodium 140 mmol/L (136-145)
[2024-07-20 17:51] LABS: Blood Urea Nitrogen 18 mg/dl (7-17); Estimated Glomerular Filt Rate 70 ml/min (>60); GFR (African American) 85 ML/MIN (>60)
[2024-07-20 17:52] LABS: Alanine Aminotransferase 10 U/L (12-78); Albumin/Globulin Ratio 1.4 (1.1-1.8); Alkaline Phosphatase 129 U/L (38-126); Anion Gap 11.4 mEq/L (5-15); Aspartate Amino Transferase 14 U/L (14-36); Bilirubin,Total 0.2 mg/dl (0.2-1.3); Calcium 9.5 mg/dl (8.4-10.2); Carbon Dioxide 29 mmol/L (22.0-30.0); Cholesterol 111 mg/dl (140-200); Globulin 2.8 g/dL (1.3-3.2); Glucose 163 mg/dl (74-100); HDL Cholesterol 36 mg/dl (40-60); Total Protein,Serum 6.6 g/dl (6.3-8.2); Triglycerides 119 mg/dl (30-150); VLDL Cholesterol 24 mg/dL (0-40)
[2024-07-20 18:03] LABS: Chol/HDL Ratio 3.1 (1-3.5); Direct LDL Cholesterol 47.35 mg/dL (100-129)
== END 2024-07-20 23:59 | disposition home or self-care (01) ==
LOC: LAB.DROPOF 07-23 10:10
PROVIDERS: PCP Internal Medicine; Visit Provider Internal Medicine
DX: Z00.00 Encounter for general adult medical examination without abnormal findings (principal); Z13.220 Encounter for screening for lipoid disorders
CPT/HCPCS: 80053; 80061; 85025

== ENCOUNTER 2024-11-14 09:25 | Inpatient (IN) | payer MEDICARE, SELFPAY ==
[2024-11-14] VITALS (11 sets, daily range): BP systolic 134–238; BP diastolic 51–96; PULSE 75–82; RESP 13–24; TEMP 36.4–37.2; O2SAT 95–98; BMI 32.1; BMI 27.0
--- NOTE | 2024-11-14 09:34 | ECG_ITS ---
APPROVED REPORT Exam: Resting ECG HR:77 bpm ECG Measurements Heart Rate 77 AXES OH 156 P 27 QRSd 155 QRS -16 QT 448 T 146 QTc 480 Conclusion SINUS RHYTHM WITH OCCASIONAL VENTRICULAR PREMATURE COMPLEXES POSSIBLE LEFT ATRIAL ENLARGEMENT [-0.1mV P-WAVE IN V1/V2] LEFT BUNDLE BRANCH BLOCK [120+ ms QRS DURATION, 80+ ms Q/S IN V1/V2, 85+ ms R IN I/aVL/V5/V6] ABNORMAL ECG UNCONFIRMED REPORT Left bundle branch block with PVCs. No STEMI based on Sgarbossa criteria. Similar in appearance to previous EKGs Electronically signed by : CHAYO ANGELES, 11/14/2024 15:27:23
--- NOTE | 2024-11-14 09:38 | CT_ITS ---
FINAL REPORT TECHNIQUE: Axial imaging of the chest is obtained after the administration of contrast. 3-D MIP reformatted images were also obtained and reviewed per PE protocol. This study was performed with techniques to keep radiation doses as low as reasonably achievable (ALARA). Individualized dose reduction techniques using automated exposure control or adjustment of mA and/or kV according to the patient's size were employed. CLINICAL HISTORY: AMS, COUGH, SOA COMPARISON: 11/21/2023 FINDINGS: The pulmonary arteries are well filled. There is no evidence of pulmonary embolus. There is no aortic dissection. 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 There is thrombus in the proximal descending thoracic aorta which is also unchanged. Heart size is mildly enlarged. There is no mediastinal, hilar, or axillary lymphadenopathy. There is bilateral lower lobe interlobular septal thickening which is worse from prior exam. Ground glass opacities in the lower lungs bilaterally are favored to represent pulmonary edema. There is a 5 mm, left upper lobe pulmonary nodule, seen on series 4, image 22 which is unchanged. There is also a 5 mm left lower lobe nodule on image 23 which is unchanged. Several, additional bilateral 5 mm or less, pulmonary nodules are unchanged.. There is no pleural or pericardial effusion. Limited evaluation of the upper abdomen is without acute abnormality. There are postoperative changes from extensive posterior fusion at multiple levels. There is a new, superior endplate compression fracture at T2. There is sclerosis of T7. The appearance of the orthopedic screws is unchanged. IMPRESSION: 1. No pulmonary embolism. 2. Findings concerning for pulmonary edema. 3. 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 4. Stable pulmonary nodules. 5. New, superior endplate compression fracture of T2. Reviewed, Interpreted and Dictated by Odette Mendoza MD Transcribed by Sana Kenney Authenticated and [facility]
--- NOTE | 2024-11-14 09:38 | CT_ITS ---
FINAL REPORT TECHNIQUE: Thin section axial images were obtained from skull base to vertex without contrast. Coronal reconstruction images were obtained from the axial data. Exam was performed using dose reduction techniques such as automated exposure control, adjustment of the mA and kV according to patient size, and use of iterative reconstruction technique. CLINICAL HISTORY: AMS COMPARISON: 11/22/2023 FINDINGS: There is atrophy. No mass effect or midline shift. No intracranial hemorrhage. No hydrocephalus. Periventricular low density is likely related to changes of chronic small vessel ischemia. The basilar cisterns are preserved. The posterior fossa is without acute abnormality. The soft tissues are without acute abnormality. No acute osseous abnormality is identified. IMPRESSION: No acute intracranial abnormality. Atrophy and changes suggesting chronic small vessel ischemia. Reviewed, Interpreted and Dictated by Odette Mendoza MD Transcribed by Sarai Rodríguez Authenticated and [facility]
--- NOTE | 2024-11-14 09:38 | CT_ITS ---
FINAL REPORT TECHNIQUE: Thin section axial images are obtained through the abdomen and pelvis after intravenous contrast. Reconstruction images were obtained from the axial data. Exam was performed using dose reduction techniques. CLINICAL HISTORY: N/V, AMS COMPARISON: 04/01/2023 FINDINGS: LIVER: Homogeneous. No focal lesion. GALLBLADDER/BILIARY SYSTEM: Gallbladder is absent. No biliary dilatation. SPLEEN: Unremarkable. PANCREAS: Unremarkable. ADRENALS: Unremarkable. KIDNEYS/URETERS/BLADDER: No hydronephrosis, renal mass, or renal stone. There is asymmetric wall thickening of the right aspect of the urinary bladder which is nonspecific. GI TRACT: No small bowel obstruction or dilatation. Normal appendix. There is long segment colonic wall thickening concerning for mild colitis. PELVIC ORGANS: Uterus is absent. LYMPH NODES/RETROPERITONEUM/MESENTERY: No lymphadenopathy. No abdominal aortic aneurysm. ABDOMINAL WALL: The abdominal wall is intact. FREE FLUID: No ascites. BONES: There are postoperative changes of multilevel posterior fusion of the lumbar spine. Lucency is seen surrounding posterior surgical screws within the posterior ilium bilaterally and within the sacrum. Loosening not excluded. No acute osseous changes are seen. IMPRESSION: 1. Long segment colonic wall thickening concerning for colitis which may be infectious or inflammatory. 2. No evidence of small bowel obstruction. 3. Asymmetric wall thickening of the right urinary bladder which could represent cystitis. Neoplasm not excluded. Consider cystoscopy for further evaluation. 4. Lucency surrounding surgical screws in the sacrum and ilium. Loosening not excluded. Reviewed, Interpreted and Dictated by Odette Mendoza MD Transcribed by Sana Kenney Authenticated and [facility]
--- NOTE | 2024-11-14 09:38 | CT_ITS ---
FINAL REPORT TECHNIQUE: Thin section axial images are obtained through the brain after intravenous contrast injection. Multiplanar reconstructions were obtained from the axial data. Exam was performed using dose reduction techniques such as automated exposure control, adjustment of the mA and kV according to patient size, and use of iterative reconstruction technique. CLINICAL HISTORY: AMS FINDINGS: Motion artifact limits exam. There is no evidence of large vessel occlusion or significant stenosis. IMPRESSION: No large vessel occlusion or significant stenosis. Reviewed, Interpreted and Dictated by Odette Mendoza MD Transcribed by Sarai Rodríguez Authenticated and [facility]
--- NOTE | 2024-11-14 09:38 | CT_ITS ---
FINAL REPORT TECHNIQUE: Thin section axial images were obtained from the aortic arch to the skull base after intravenous contrast injection per CTA protocol. Multiplanar reconstruction images were obtained. Exam was performed using dose reduction techniques and the ALARA principle. 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 There is irregular plaque in the proximal descending thoracic aorta which is also incompletely imaged. There is three-vessel configuration of the arch. There is at least 50 to 60% stenosis of the left common carotid artery at its origin. Right carotid artery: There is calcified plaque within the common carotid artery and carotid bulb. There is 30% stenosis of the proximal internal carotid artery. The remaining internal carotid artery is patent to the skull base. Left carotid artery: The left common carotid artery is patent without stenosis. The cervical portions of the left internal carotid artery are patent without stenosis. 0% stenosis per NASCET criteria. Vertebral arteries: The vertebral arteries are patent. No significant stenosis. IMPRESSION: 30% stenosis of the proximal right ICA. Reviewed, Interpreted and Dictated by Odette Mendoza MD Transcribed by Sarai Rodríguez Authenticated and [facility]
--- NOTE | 2024-11-14 09:42 | HMH.EDGENADL ---
Discharge Plan Disposition Patient Disposition: Admitted Prescriptions Prescriptions: No Action melatonin-pyridoxine HCl (B6) 5-10 mg tablet 1 tab PO HS 30 Days Qty: 30 0RF Movantik 25 mg tablet 25 mg PO DAILY Soliqua 100/33 100 unit-33 mcg/mL insulin pen 32 unit SQ DAILY Qty: 15 3RF morphine 15 mg tablet extended release 30 mg PO DAILY Qty: 30 0RF oxybutynin chloride 2.5 mg tablet 2.5 mg PO DAILY (DME) blood pressure monitor Kit See Rx Instructions .Route Qty: 1 0RF Rx Instructions: As directed Qulipta 60 mg tablet 60 mg PO DAILY Qty: 30 2RF senna 8.6 mg capsule 8.6 mg PO BID PRN (Reason: constipation) Qty: 30 0RF carvedilol 25 mg tablet See Rx Instructions .ROUTE .COMPLEX Qty: 180 3RF Dose Instruction: TAKE 1 TABLET TWICE DAILY FOR HYPERTENSION Rx Instructions: TAKE 1 TABLET TWICE DAILY FOR HYPERTENSION irbesartan 300 mg tablet See Rx Instructions .ROUTE .COMPLEX Qty: 30 11RF Dose Instruction: TAKE 1 TABLET EVERY DAY Rx Instructions: TAKE 1 TABLET EVERY DAY metformin 1,000 mg tablet 1,000 mg PO BIDWMEAL Qty: 180 1RF docusate sodium [Stool Softener] 250 mg capsule 250 mg PO BID Qty: 180 0RF insulin asp prt-insulin aspart [Novolog Mix 70-30 U-100 Insuln] 100 unit/mL (70-30) solution 12 unit SQ DAILY Qty: 10 2RF cholecalciferol (vitamin D3) 1,250 mcg (50,000 unit) capsule 1,250 mcg PO WEEKLY Qty: 10 0RF alendronate 70 mg tablet 70 mg PO WEEKLY 84 Days Qty: 12 1RF cyanocobalamin (vitamin B-12) 1,000 mcg/mL solution 1,000 mcg IM WEEKLY Qty: 10 0RF (DME) Accu-Chek Guide test strips Strip See Rx Instructions .ROUTE .COMPLEX Qty: 100 0RF Dose Instruction: CHECK FASTING BLOOD SUGAR ONCE DAILY NEEDED Rx Instructions: CHECK FASTING BLOOD SUGAR ONCE DAILY NEEDED baclofen 10 mg tablet 10 mg PO Q8H PRN (Reason: muscle spasm) Qty: 90 3RF hydroxyzine HCl 10 mg tablet 10 mg PO BID Qty: 60 3RF gabapentin 600 mg tablet 600 mg PO TID Qty: 90 1RF atorvastatin 40 mg tablet 40 mg PO DAILY Qty: 90 3RF quetiapine 50 mg tablet 50 mg PO HS Qty: 90 3RF prochlorperazine maleate 5 mg tablet 5 mg PO TID PRN (Reason: anxiety or nausea) Qty: 60 2RF paroxetine HCl 20 mg tablet 60 mg PO HS 90 Days Qty: 270 3RF oxycodone-acetaminophen 10-325 mg tablet 1 tab PO QIDP PRN (Reason: Moderate Pain (Scale Score 5-6)) clopidogrel 75 mg Tablet 75 mg PO DAILY 30 Days Qty: 30 0RF hydrochlorothiazide 12.5 mg Capsule 12.5 mg PO DAILY 30 Days Qty: 30 0RF Referrals Follow up/Referrals: Kb Hernández DO [Primary Care Provider, Family Practice] - See instructions Clinical Impressions Clinical Impression: Colitis, Nausea & vomiting, Hypomagnesemia, Hypokalemia, Hypertension Print Language Print Language: Belarusian Discharge ED Provider: Anthony Friedman General Adult HPI General Chief complaint: Weakness Stated complaint: weakness, vomiting, diarrhea, High BP, high sugar Time Seen by Provider: 11/14/24 09:26 History of Present Illness HPI narrative: Yolanda Agosto is a 73y female with a history of diabetes on insulin, previous stroke with right-sided deficits and is nonverbal at baseline with contractures of bilateral upper and lower extremities, peripheral arterial disease on Plavix, hypertension, urinary tract infection, COPD, decubitus skin ulcer, hyperlipidemia, chronic pain syndrome, tobacco use who presents to the emergency department with for concern for nausea, vomiting and being generally sick for 1 week with decreased oral intake. He believes he may have had a fever at some point because she has woken up a pool of sweat. He states that over the last week, she has had a decreased appetite and will not eat hardly anything at all. Starting yesterday, she started vomiting. He states that home health has started coming out as of yesterday and put a dressing on her decubitus ulcer. He states that her blood sugar this morning was over 300 and he gave her insulin but has not rechecked it. He notes that she is supposed to have stents placed in the upcoming months in her lower extremities. Related Data Home Medications ?Medication ?Instructions ?Recorded ?Confirmed oxycodone-acetaminophen 10 mg-325 1 tab PO QIDP PRN Moderate Pain 04/02/23 08/16/24 mg tablet (Scale Score 5-6) naloxegol 25 mg tablet (Movantik) 25 mg PO DAILY 08/08/23 08/16/24 oxybutynin chloride 2.5 mg tablet 2.5 mg PO DAILY 08/16/24 08/16/24 Previous Rx's ?Medication ?Instructions ?Recorded melatonin-pyridoxine HCl (vitamin 1 tab PO HS SLEEP 30 days #30 tabs 12/29/21 B6) 5 mg-10 mg tablet sennosides 8.6 mg capsule (senna) 8.6 mg PO BID PRN constipation #30 09/06/23 caps clopidogrel 75 mg tablet 75 mg PO DAILY 30 days #30 tabs 11/22/23 hydrochlorothiazide 12.5 mg capsule 12.5 mg PO DAILY 30 days #30 caps 11/22/23 carvedilol 25 mg tablet See Rx Instructions .Route 12/26/23 .COMPLEX #180 tabs irbesartan 300 mg tablet See Rx Instructions .Route 02/23/24 .COMPLEX #30 tabs docusate sodium 250 mg capsule 250 mg PO BID Constipation #180 03/01/24 (Stool Softener) caps metformin 1,000 mg tablet 1,000 mg PO BIDWMEAL Diabetes #180 03/01/24 tabs insulin aspar prt-insulin aspart 12 unit (0.12 mL) SQ DAILY 03/21/24 100 unit/mL (70-30) subcutaneous Diabetes #10 mL soln (Novolog Mix 70-30 U-100 Insuln) insulin glargine 100 32 unit (0.32 mL) SQ DAILY 03/30/24 unit-lixisenatide 33 mcg/mL Diabetes #15 mL subcutaneous pen (Soliqua 100/33) morphine 15 mg tablet,extended 30 mg (2 x 15 mg) PO DAILY #30 tabs 03/30/24 release cholecalciferol (vitamin D3) 1,250 1,250 mcg PO WEEKLY #10 caps 05/15/24 mcg (50,000 unit) capsule alendronate 70 mg tablet 70 mg PO WEEKLY Osteoporosis 84 07/12/24 days #12 tabs atogepant 60 mg tablet (Qulipta) 60 mg PO DAILY #30 tabs 08/16/24 blood pressure monitor #1 ea 08/16/24 cyanocobalamin (vitamin B-12) 1,000 mcg IM WEEKLY #10 mL 08/31/24 1,000 mcg/mL injection solution blood sugar diagnostic (Accu-Chek #100 ea 09/06/24 Guide test strips) baclofen 10 mg tablet 10 mg PO Q8H PRN muscle spasm #90 10/10/24 tabs hydroxyzine HCl 10 mg tablet 10 mg PO BID Anxiety #60 tabs 10/10/24 gabapentin 600 mg tablet 600 mg PO TID NERVE PAIN #90 tabs 10/31/24 atorvastatin 40 mg tablet 40 mg PO DAILY #90 tabs 11/01/24 quetiapine 50 mg tablet 50 mg PO HS SLEEP #90 tabs 11/01/24 prochlorperazine maleate 5 mg 5 mg PO TID PRN anxiety or nausea 11/02/24 tablet #60 tabs paroxetine HCl 20 mg tablet 60 mg (3 x 20 mg) PO HS MOOD 90 11/13/24 days #270 tabs Allergies Allergy/AdvReac Type Severity Reaction Status Date / Time cefuroxime (From CEFTIN) Allergy Mild Verified 08/16/24 11:54 codeine Allergy Verified 08/16/24 11:54 [facility] Disclaimer: The information contained in this section may have been updated after the patient was seen, as this information can be updated by other users. Medical History Decubitus skin ulcer CHF exacerbation CVA (cerebral vascular accident) Pain due to onychomycosis of toenails of both feet Hip replacement planned Coronary artery disease Renal cyst, left Chest pain HTN (hypertension) Abnormal electrocardiography Gastroesophageal reflux disease Dyspnea Chest pain Neuropathy, cervical (radicular) Left shoulder strain Chronic prescription opiate use Declining functional status Hypertensive urgency Callus of foot Onychomycosis Diabetic foot Chronic, continuous use of opioids Hemiplegia affecting right dominant side Gastroenteritis Bronchitis Surgical History History of knee replacement History of back surgery Social History Smoking Status: Current every day smoker tobacco type: cigarettes packs per day: 1 alcohol intake: former substance use type: denies use current occupational status: retired and disabled Travel in the last 8 weeks?: None household members: spouse housing: other caffeine: No Have you lived/traveled outside [place] in past 30 days?: No Contact w/someone who lives/traveled outside US past 30 days?: No Exposure to someone with infectious disease in past 14 days?: No Do you have a fever (greater than 100.4 F or 38 C)?: No Have you tested positive for COVID-19?: No Exposed to someone with COVID-19 in past 14 days?: No Do you have a sore throat?: No Do you have a cough?: Yes Do you have any weakness?: Yes Do you have any diarrhea?: Yes Are you experiencing any unusual bleeding?: No Do you have any muscle aches/pain?: Yes Do you have any abdominal pain?: No Are you experiencing loss of taste or smell?: No Other Medical History Have you received the Flu Vaccine for this season: No Have you received the Pneumonia Vaccine: Yes ROS Obtained: Yes Systems reviewed as appropriate & no additional complaints except as documented Physical Exam General General appearance: alert Comment: ill appearing, will answer who her name is but is otherwise disoriented. Follows commands Head Head exam: atraumatic Eye Eye exam: Present normal appearance, PERRL (3mm and reactive) and EOMI; Absent scleral icterus ENT ENT exam: Present mucous membranes dry and normal external ear exam Neck Neck exam: Present full ROM Chest Chest inspection: Present symmetric chest wall rise; Absent tenderness Respiratory Respiratory exam: Present normal lung sounds bilaterally; Absent respiratory distress, wheezes or stridor Cardiovascular Cardiovascular exam: Present regular rate and normal rhythm Abdominal Exam Abdominal exam: Present soft; Absent distention, tenderness or guarding Extremities Exam Extremities exam: Present normal inspection and other (Contracted upper and lower extremities); Absent edema Back Exam Back exam: Present normal inspection Neurological Exam Neurological exam: Present alert; Absent oriented X3 (Oriented to self only but follows commands and responds to questioning) Psychiatric Psychiatric exam: Present other (Unable to assess secondary to mental status) Skin Skin exam: Present warm, dry and other (Pale) Expanded Skin Exam Body image:  1. Ulcerative lesion Medical Decision Making Medical Records Screening: Per USPSTF and CDC recommendations, given the prevalence of disease in our region, it is our hospital?s policy to screen for HIV and viral Hepatitis for all patients aged 18 and over and those with ongoing risk factors. Lm Inquiry Pt receiving controlled substance: No Vital Signs: 11/14/24 09:50 11/14/24 10:16 11/14/24 10:44 Temperature 99.0 F Temperature Source Rectal Pulse Rate 78 Pulse Rate [Left Radial] 78 Respiratory Rate 20 24 20 Blood Pressure 238/96 H 215/84 H Blood Pressure [Right Arm] 222/96 H Blood Pressure Mean [Right Arm] 138 02 Sat by Pulse Oximetry 98 96 Oxygen Delivery Method Room Air Lab Data Lab Results 11/14/24 09:38: Phosphorus 3.8, Magnesium 1.1 L 11/14/24 09:40: WBC 16.4 H, RBC 4.70, Hgb 15.6, Hct 46.5, MCV 98.9, MCH 33.2 H, MCHC 33.5, RDW 13.8, Plt Count 460 H, MPV 8.9, Neut % (Auto) 88.0 H, Lymph % (Auto) 6.8 L, [place] % (Auto) 4.5, Eos % (Auto) 0.0 L, Baso % (Auto) 0.4, Neut # (Auto) 14.4 H, Lymph # (Auto) 1.1, [place] # (Auto) 0.7, Eos # (Auto) 0.0, Baso # (Auto) 0.1, VBG pH 7.39, VBG pCO2 36.8, VBG pO2 43.6 H, VBG HCO3 21.5 L, VBG Total CO2 22.7 L, VBG O2 Saturation 78.0 H, VBG Base Excess -3.5 L, VBG Lactic Acid 3.1 H, Sodium 134 L, Potassium 3.2 L, Chloride 97 L, Carbon Dioxide 22, Anion Gap 18.2 H, BUN 16, Creatinine 0.60, Estimated Creat Clear 59, Estimated GFR 97, Est GFR ( Amer) 118, Glucose 310 H, Calcium 10.1, Total Bilirubin 0.9, AST 29, ALT 24, Alkaline Phosphatase 91, Troponin I 0.03, C-Reactive Protein 16.2 H, NT-Pro-B Natriuret Pep 12496 H, Total Protein 8.4 H D, Albumin 4.5, Globulin 3.9 H, Albumin/Globulin Ratio 1.2, Procalcitonin 0.084, Acetone Level None detected 09/24/25 09:50: Chlamy pneumoniae PCR Not detected, Adenovirus (PCR) Not detected, B. pertussis DNA (PCR) Not detected, Coronavirus OC43 (PCR) Not detected, Coronavirus HKU1 (PCR) Not detected, Coronavirus 229E (PCR) Not detected, SARS-CoV-2 (PCR) Not detected, Coronavirus NL63 (PCR) Not detected, Human Metapneumovir PCR Not detected, Influenza A (H1) PCR Not detected, Influ A (H1N1/09) PCR Not detected, Influenza A (H3) PCR Not detected, Influenza Type A (PCR) Not detected, Influenza Type B (PCR) Not detected, M. pneumoniae (PCR) Not detected, Parainfluenza 1 (PCR) Not detected, Parainfluenza 2 (PCR) Not detected, Parainfluenza 3 (PCR) Not detected, Parainfluenza 4 (PCR) Not detected, RSV (PCR) Not detected, Entero/Rhino (PCR) Not detected 11/14/24 : Urine Color Yellow, Urine Appearance Slightly cloudy, Urine pH 6.5, Ur Specific [place] 1.025, Urine Protein 3+ A, Urine Glucose (UA) 3+, Urine Ketones 3+, Urine Blood 2+ A, Urine Nitrate Negative, Urine Bilirubin Negative, Urine Urobilinogen 0.2, Ur Leukocyte Esterase Negative, Urine RBC None, Urine WBC 3-5, Ur Squamous Epith Cells Occasional, Urine Bacteria Trace, Urine Opiates Screen Positive H, Urine Methadone Screen Negative, Ur Barbituates Screen Negative, Ur Phencyclidine Scrn Negative, Ur Amphetamines Screen Negative, U Benzodiazepines Scrn Negative, Urine Cocaine Screen Negative, U Marijuana (THC) Screen Negative 11/14/24 09:40 11/14/24 09:40 Orders (Tests/Meds): ED MEDICATIONS Generic Name Dose Route Start Last Admin Trade Name Freq PRN Reason Stop Dose Admin Potassium Chloride/Water 100 mls @ 50 mls/hr 11/14/24 10:42 Potassium Chloride 20meq/100ml Ivpb IV 11/14/24 14:41 Q2H DANITZA Discontinued Medications Generic Name Dose Route Start Last Admin Trade Name Freq PRN Reason Stop Dose Admin Hydralazine HCl 10 mg 11/14/24 10:12 11/14/24 10:15 Hydralazine 20mg/Ml Vial IV 11/14/24 10:13 10 mg ONCE ONE Administration Hydralazine HCl 10 mg 11/14/24 10:45 11/14/24 10:50 Hydralazine 20mg/Ml Vial IV 11/14/24 10:46 10 mg ONCE ONE Administration Lactated Ringer's 1,000 mls @ 999 mls/hr 11/14/24 09:38 11/14/24 11:15 Lactated Ringer's 1000 Ml Bag IV 11/14/24 10:38 Infused .Q1H1M ONE Infusion Magnesium Sulfate 2 gm in 50 mls @ 50 mls/hr 11/14/24 10:40 11/14/24 12:15 Magnesium Sulfate 2gm/50ml Premix IV 11/14/24 11:39 Infused ONCE ONE Infusion Magnesium Sulfate 2 gm in 50 mls @ 50 mls/hr 11/14/24 10:41 11/14/24 12:16 Magnesium Sulfate 2gm/50ml Premix IV 11/14/24 11:40 50 mls/hr ONCE ONE Administration Iopamidol 160 ml 11/14/24 11:07 11/14/24 11:08 Iopamidol-370 (76%);100ml Bottle IV 11/14/24 11:08 160 ml ONCE ONE Administration Ondansetron HCl 4 mg 11/14/24 09:43 11/14/24 09:49 Ondansetron 4mg/2ml Vial IV 11/14/24 09:44 4 mg ONCE ONE Administration Sodium Chloride 10 ml 11/14/24 11:07 11/14/24 11:08 0.9 % Sodium Chloride 50 Ml Vial IV 11/14/24 11:08 10 ml ONCE ONE Administration ORDERS Category Date Time Status CT abdomen pelvis w con Stat Cat Scan 11/14/24 09:[address] angio chest PE protocol Stat Cat Scan 11/14/24 09:[address] angio head Stat Cat Scan 11/14/24 09:[address] angio neck Stat Cat Scan 11/14/24 09:[address] head/brain wo con Stat Cat Scan 11/14/24 09:38 Completed Consult to Case Management [CONS] Routine Cons 11/14/24 10:53 Active Acetone, Serum (Rapid) Stat Lab 11/14/24 09:40 Completed BNP [NT Pro Brain Natriuretic Pep.] Stat Lab 11/14/24 09:40 Completed CBC w/Auto Diff [Complete Blood Count Auto Diff] Stat Lab 11/14/24 09:40 Completed CMP [Comprehensive Metabolic Panel] Stat Lab 11/14/24 09:40 Completed CRP [C-Reactive Protein] Stat Lab 11/14/24 09:40 Completed Full Resp Panel w/COVID ([facility]) Routine Lab 11/14/24 09:50 Completed Lipase Stat Lab 11/14/24 09:38 Received Magnesium Stat Lab 11/14/24 09:38 Completed Phosphorous Stat Lab 11/14/24 09:38 Completed Procalcitonin Stat Lab 11/14/24 09:40 Completed Troponin I Q3H Lab 11/14/24 12:30 Received Troponin I Q3H Lab 11/14/24 15:45 Ordered Troponin I Stat Lab 11/14/24 09:40 Completed UA [Urinalysis and Microscopic] Stat Lab 11/14/24 Completed UDS [Drug Screen,Urine] Stat Lab 11/14/24 Completed Blood Culture Stat Micro 11/14/24 10:25 Received VBG [Venous Blood Gas] Stat RT 11/14/24 09:40 Completed ECG Data Tracing #1: I reviewed this ECG and interpreted as documented below: Normal sinus rhythm, left bundle branch block with PVCs. No STEMI based on Sgarbossa criteria. Appears unchanged from previous EKG on 11/21/2023 Medical Decision Narrative: Yolanda Agosto is a 73y female with a history of diabetes on insulin, previous stroke with right-sided deficits and is nonverbal at baseline with contractures of bilateral upper and lower extremities, peripheral arterial disease on Plavix, hypertension, urinary tract infection, COPD, decubitus skin ulcer, hyperlipidemia, chronic pain syndrome, tobacco use who presents to the emergency department with for concern for nausea, vomiting and being generally sick for 1 week with decreased oral intake. He believes he may have had a fever at some point because she has woken up a pool of sweat. He states that over the last week, she has had a decreased appetite and will not eat hardly anything at all. Starting yesterday, she started vomiting. He states that home health has started coming out as of yesterday and put a dressing on her decubitus ulcer. He states that her blood sugar this morning was over 300 and he gave her insulin but has not rechecked it. He notes that she is supposed to have stents placed in the upcoming months in her lower extremities. On arrival, patient is noted to be hypertensive with blood pressure 222/96, heart rate within normal limits at 70 bpm, breathing 20 times a minute, temperature 99 ?F. Oxygen saturation 98% on room air. Physical exam, stated above, reveals an ill appearing female in no respiratory distress. She is alert and has contractures of bilateral upper and lower extremities. She knows her name but is otherwise disoriented but will follow commands. Abdomen is soft, nontender nondistended. Neuroexam is otherwise nonfocal. She does have dry mucous membranes. She appears pale. Cardiopulmonary exam is unremarkable. Differential diagnosis is broad and includes, but is not limited to: Urinary tract infection, sepsis, pneumonia, hypertensive emergency, stroke, electrolyte derangement, dehydration, acute pancreatitis, intra-abdominal infection, intrathoracic infection, ACS, pulmonary embolism, DKA, among others. The most morbid conditions were considered and workup was based on these. Workup in the emergency room included: UA, UDS, EKG, CTA chest PE, CTA head, CTA neck, CT abdomen pelvis with contrast, CT head without contrast, phosphorus level, VBG with lactate, magnesium level, troponin, BNP, CBC with differential, CMP, CRP, procalcitonin, acetone level, full respiratory panel, blood culture x 2 lipase. Patient was initially treated with 1 L lactated ringer as well as 4 mg of IV Zofran. For patient's significant hypertension, patient was treated with 10 mg of IV hydralazine and proximately 20 minutes later, her blood pressure had not improved significantly and is 215/84, will give additional 10 mg IV hydralazine. EKG without evidence of ischemia. She has a left bundle branch block that appears similar to previous EKG. See interpretation above. Workup shows leukocytosis of 16.4 with neutrophilia. Platelets elevated at 460. Hemoglobin is elevated 15.6 and hematocrit 46.5 (baseline is around 12, indicating likely degree of hemoconcentration from dehydration). VBG without acidosis with pH of 7.39. pCO2 normal at 36.8. Bicarb mildly low at 22.7. Lactate elevated at 3.1. Electrolytes show mildly low sodium of 134, potassium mildly low at 3.2, chloride low at 97. Patient does have an anion gap of 18.2, likely secondary to elevated lactate. No KATHERINE. Glucose is 310. Phosphorus normal 3.8. Magnesium is significantly low at 1.1. Liver enzymes within normal limits. Initial troponin 0.03. CRP is elevated at 16.2. BNP is significantly elevated at 10,700 (was 731 as of November 20 of last year), procalcitonin of 0.084. Catheterized urinalysis sample with 3+ protein and 2+ blood, nitrate negative, leukocyte esterase negative. UDS positive for opiates, however patient is on chronic opiate pain medication at home. CT imaging interpreted by me personally. No intracranial hemorrhage, mass or midline shift. No large vessel occlusion or likely significant stenosis. No evidence of pneumonia. 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 CT abdomen pelvis that shows evidence of colitis. No small bowel obstruction. See radiology report for further details. Patient's blood pressure has improved to the 180s systolic. I had an interactive discussion with the hospitalist, Dr. Ibanez, at approximately 12:45 PM for admission given patient's hypertension requiring IV medications, hypomagnesemia, hypokalemia and dehydration in the setting of continued nausea and vomiting with colitis. He graciously accepted the patient for admission. Critical Care Critical Care Time Critical Care Time: Yes Attestation: On 11/14/24, the high probability of a clinically significant, sudden or life threatening deterioration of the following system(s) required my full and direct attention, intervention and personal management. The time I documented below is in addition to time spent performing reported procedures but includes the following listed in this critical care notation. Total Time Total Critical Care Time: 35
[2024-11-14 09:45] LABS: Microscopic, Urine URINE MICROSCOPIC (MICROSCOPIC)
--- OUTSIDE RECORDS SUMMARY | 2024-11-14 09:47 | XMS_ITS | Encounter Summary ---
Author Organization Healthcare Address [address] [place] [address] Care Team Providers Care Mounting Machine Operator Name Role Phone Antonio Ta MD Primary Care Provider + [phone] Encounter Details Date Type Department Care Team (Late st Contact Info) Description 10/08/2023 Telephone [facility] [address], [address] [place] [address] Tawanda Lundberg MD [address] [place] [address] Social History Tobacco Use Types Packs/Day Years Used Date Smoking Tobacco: Never Assessed Comments Unknown Sex and Gender Information Value Date Recorded Sex Assigned at Not on file Legal Sex Female 6:30 PM EDT Gender Identity Not on file Sexual Orientation Not on file documented as of this encounter Miscellaneous Notes * Telephone Encounter - Tawanda Lundberg MD - 10/13/2023 6:08 PM EDT I was paged by Nu reid and asked to give an opinion about a CT scan. Initially the scan was not visible remotely as it had not been placed into our medical record system. It took back and forth phone calls but eventually it was entered into [employer]. The question was about her transverse aortic arch. The outside provider who read the scan diagnosedthis as a aneurysm of the aortic arch. What I saw on the scan was a significant amount of calcium throughout the aorta particularly in thechest. The transverse aortic arch was full of calcium reaching up into all branches. There was no evidence of extravasation of dye. There was no area that looked to be a recent change in anatomy. This patient had severe atherosclerotic changes throughout her whole aorta. MES documented in this encounter Plan of Treatment Not on file documented as of this encounter Visit Diagnoses Not on filedocumented in this encounter Care Teams Mounting Machine Operator Relationship Specialty Start Date End Date Antonio Ta MD [address] [place] [address] PCP - General 07/04/20 documented as of this encounter
--- OUTSIDE RECORDS SUMMARY | 2024-11-14 09:47 | XMS_ITS | Clinical Summary ---
Author Organization Healthcare Address [address] [place] [address] Care Team Providers Care Appliances Sample Maker Name Role Phone Antonio Ta MD Primary Care Provider [phone] Social History Tobacco Use Types Packs/Day Years Used Date Smoking Tobacco: Never Assessed Comments Unknown Sex and Gender Information Value Date Recorded Sex Assigned at Not on file Legal Sex Female 6:30 PM EDT Gender Identity Not on file Sexual Orientation Not on file Last Filed Vital Signs Vital Sign Reading Time Taken Comments Blood Pressure 180/73 10/08/2023 6:52 PM EDT Pulse 78 10/08/2023 6:52 PM EDT Temperature 36.8 C (98.2 F) 10/08/2023 6:52 PM EDT Respiratory Rate 20 10/08/2023 6:52 PM EDT Oxygen Saturation 98% 10/08/2023 6:52 PM EDT RA Inhaled Oxygen Concentration - - Weight - - Height - - Body Mass Index - - Plan of Treatment Not on file Care Teams Appliances Sample Maker Relationship Specialty Start Date End Date Antonio Ta MD [address] [place] [address] PCP - General 07/04/20
--- OUTSIDE RECORDS SUMMARY | 2024-11-14 09:47 | XMS_ITS | Clinical Summary ---
Author Organization [facility] Address [address] [place] [address] Care Team Providers Care Machine Veneer Repairer Name Role Phone Kb Hernández DO Primary Care Provider + Allergies Active Allergy Reactions Criticality Noted Date Comments Cefuroxime Other (See Comments) Low 12/08/2015 does not remember reaction Codeine Unknown - Low Severity 12/08/2015 Tolerates Oxycodone and Morphine Medications gabapentin (NEURONTIN) 400 MG capsule Take 800 mg by mouth 3 (Three) Times a Day. 5 Active glimepiride (AMARYL) 4 MG tablet Take 4 mg by mouth 2 (Two) Times a Day. Active meclizine (ANTIVERT) 25 MG tablet Take by mouth As Needed. 4 Active metFORMIN (GLUCOPHAGE) 500 MG tablet Take 1,000 mg by mouth 2 (Two) Times a Day With Meals. 4 Active Omeprazole 20 MG tablet delayed-release Take 20 mg by mouth Daily. 5 Active ondansetron (ZOFRAN) 4 MG tablet Take by mouth. 5 Active simvastatin (ZOCOR) 40 MG tablet Take 40 mg by mouth Every Night. 5 Active Cyanocobalamin (VITAMIN B-12 IJ) Inject as directed Every 30 (Thirty) Days. Active alendronate (FOSAMAX) 70 MG tablet Take 70 mg by mouth Every 7 (Seven) Days. On Mondays Active vitamin D (ERGOCALCIFEROL ) 14512 UNITS capsule capsule Take 50,000 Units by mouth 1 (One) Time Per Week. 2x a week Active sitaGLIPtin (JANUVIA) 100 MG tablet Take 100 mg by mouth Daily. Active cyclobenzaprine (FLEXERIL) 10 MG tablet Take 10 mg by mouth 3 (Three) Times a Day As Needed for muscle spasms. Active oxyCODONE-aceta minophen (PERCOCET) 10-325 MG per tablet Take 1 tablet by mouth Every 6 (Six) Hours As Needed for Moderate Pain or Severe Pain . Active topiramate (TOPAMAX) 50 MG tablet Take 50 mg by mouth 2 (Two) Times a Day. Active baclofen (LIORESAL) 10 MG tablet Take 10 mg by mouth 3 (Three) Times a Day. Active leflunomide (ARAVA) 10 MG tablet Take 10 mg by mouth Daily. Active aspirin 81 MG EC tablet Take 81 mg by mouth Daily. Active PARoxetine (PAXIL) 20 MG tablet Take 20 mg by mouth Every Morning. Take with 40mg tablet for a total daily dose of 60mg Active PARoxetine (PAXIL) 40 MG tablet Take 40 mg by mouth Every Morning. Take with 20mg tablet for a total daily dose of 60mg Active metOLazone (ZAROXOLYN) 2.5 MG tablet HOLD MEDICATION UNTIL PCP FOLLOW UP 0 Active potassium chloride (KLOR-CON) 20 MEQ CR tablet RESTART when METOLAZONE restarted 0 Active ALPRAZolam (XANAX) 0.5 MG tabletIndicatio ns:Chest pain in adult Take 1 tablet by mouth At Night As Needed for Sleep. 0 Active lisinopril (PRINIVIL,ZESTR IL) 20 MG tablet Take 1 tablet by mouth Daily. 30 tablet 0 Active carvedilol (COREG) 25 MG tablet Take 1 tablet by mouth Every 12 (Twelve) Hours. 60 tablet 0 Active clopidogrel (PLAVIX) 75 MG tablet Take 1 tablet by mouth Daily. 30 tablet 0 Active Active Problems Problem Noted Date Diagnosed Date History of CVA (cerebrovascular accident) 2019 Ataxia 03/30/2018 COPD (chronic obstructive pulmonary disease) 08/2018 Physical deconditioning 03/30/2018 Arthritis 03/30/2018 Diabetes mellitus 03/30/2018 BMI 29.0-29.9,adult 03/30/2018 Leg weakness, bilateral 03/30/2018 Stroke-like symptoms 03/30/2018 Speech abnormality 03/30/2018 Metabolic acidosis 04/07/2017 Overview (04/07/2017): Multifactorial including diabetic ketoacidosis, starvation ketosis, lactic acidosis Elevated troponin 04/07/2017 Accelerated hypertension 04/07/2017 Colitis 04/07/2017 Colitis 04/06/2017 SIRS (systemic inflammatory response syndrome) 0 04/06/2017 Lactic acidosis 04/06/2017 Hypertension 04/06/2017 Hypokalemia 04/06/2017 Fatty liver 04/06/2017 Tobacco abuse 04/06/2017 Diabetic ketoacidosis with c elena associated with diabetes mellitus due to underlying condition 04/06/2017 Chest pain in adult 04/06/2017 Class 1 obesity in adult 04/06/2017 Dyslipidemia 04/06/2017 Stenosis of left carotid artery 04/06/2017 Overview (04/06/2017): 1. Remote Left CEA Generalized abdominal pain 04/06/2017 NSTEMI (non-ST elevated myocardial infarction) 0 04/06/2017 Chronic bilateral low back pain without sciatica 12/17/2015 Resolved Problems Problem Noted Date Diagnosed Date Resolved Date Symptomatic hypotension 05/02/201904/21 Symptomatic anemia 05/02/2019 0 Epistaxis 05/02/2019 05/04/2019 Epistaxis 04/30/2019 05/01/2019 Hypertensive urgency 04/30/2019 020 N&V (nausea and vomiting) 04/07/2017 Leukocytosis 04/06/2017 05/01/2019 Family History Medical History Relation Name Comments Coronary artery disease Brother x7 Diabetes Brother x7 Stroke Father Kidney disease Mother Arthritis Sister x3 Coronary artery disease Sister x3 Depression Sister x3 Diabetes Sister x3 Relation Name Status Comments Brother x7 Alive Father Mother Sister x3 Social History Tobacco Use Types Packs/Day Years Used Date Smoking Tobacco: Every Day Cigarettes Tobacco Cessation:Ready to Q uit: Not Asked; Counseling Given: Not Answered Alcohol Use Standard Drinks/Week Comments No 0 (1 standard drink = 0.6 oz pur e alcohol) Abuse Screen Answer Date Recorded Feels Unsafe at Home or Work/School no 10/25/2024 Feels Threatened by Someone no 05/2024 Does Anyone Try to Keep You From Having Contact with Others or Doing Things Outside Your Home? no 10/25/2024 Physical Signs of Abuse Present no 10/25/2024 Comments No Sex and Gender Information Value Date Recorded Sex Assigned at Not on file Legal Sex Female 11:22 AM EDT Gender Identity Not on file Sexual Orientation Not on file Last Filed Vital Signs Vital Sign Reading Time Taken Comments Blood Pressure 167/84 04/09/2023 2:38 PM EST Pulse 71 04/09/2023 2:38 PM EST Temperature 36.8 C (98.3 F) 04/09/2023 11:20 AM EST Respiratory Rate 16 04/09/2023 11:20 AM EST Oxygen Saturation 94% 04/09/2023 2:38 PM EST Inhaled Oxygen Concentration - - Weight 77.1 kg (170 lb) 10/25/2024 9:52 AM EDT Height 154.9 cm (5' 1 ) 10/25/2024 9:52 AM EDT Body Mass Index 32.12 10/25/2024 9:52 AM EDT Plan of Treatment Upcoming Encounters Date Type Department Care Team (Latest Contact Info) Description 12/11/2024 10:30 AM EDT Pre-Admission Testing [facility] T [address] [place] [address] 12/17/2024 7:45 AM EDT Hospital Encounter [facility] OR [address] [place] [address] Aman Jimenez MD [address] [place] [address] 12/17/2024 7:45 AM EDT - 12/17/2024 9:29 AM EDT Surgery [facility] OR [address] [place] [id number] Aman Jimenez MD [address] [place] [address] AORTOGRAM WITH RUNOFF AND POSSIBLE RIGHT INTERVENTION Scheduled Procedures Name Priority Associated Diagnoses Date/Ti me AORTOGRAM WITH OR WITHOUT RUNOFFS POSSIBLE STENT 12/17/2024 7:45 A M EDT Health Maintenance Due Date Last Done Comments DXA SCAN 1950 DIABETIC EYE EXAM 1958 DIABETIC FOOT EXAM 1958 URINE MICROALBUMIN-CREATININ E RATIO (uACR) 1958 TDAP/TD VACCINES (1 - Tdap) 11/28/1967 COLOGUARD 1993 COLON CANCER SCREENING 5 YEA R SIGMOIDOSCOPY 1993 COLONOSCOPY 1993 [address] CANCER SCREENING 1993 CT COLONOGRAPHY 1993 FECAL OCCULT BLOOD TEST 1993 FIT Testing (1 year) 1993 ZOSTER VACCINE (1 of 2) 1998 ANNUAL WELLNESS VISIT 03/30/2018 HEPATITIS C SCREENING 03/30/2018 HEMOGLOBIN A1C 11/02/2018 05/02/2018, 03/24, 10/10/2013 RSV Vaccine - Adults (1 - 1- dose 75+ series) 11/28/2023 INFLUENZA VACCINE 09/21/2024 02/09/2023, , 12/15/2020, Additional history exists COVID-19 Vaccine (3 - 2024-2 6 season) 2024 10/15/2020, 09/17/2020 Pneumococcal Vaccine 50+ Completed 02/09/2023 Procedures Procedure Name Priority Date/Time Associated Diagnosis Comments HEMOGLOBIN A1C Routine 05/02/2018 2:05 PM EDT Diabetes mellitus with no complication from Last 3 Months or Most Recently Relevant to Health Maintenance Results * (ABNORMAL) Hemoglobin A1c (05/02/2018 2:05 PM EDT) Hemoglobin A1C 11.10(H) 4.80 - 5.60 % 05/02/2018 7:29 PM EDT [facility] Blood Venipuncture / Unknown 05/02/2018 2:05 PM EDT 05/02/2018 2:06 PM EDT Narrative [facility] - 05/02/2018 7:29 PM EDT The [place] [employer] recommends maintenance of Hemoglobin A1C at 7.0% or lower. Goals for Hemoglobin A1C reduction may need to be modified if hypoglycemia is a problem. us Antonio Ta MD LAB BLOOD ORDERABLES Final R esult [facility]
[address] [place] [address], from Last 3 Months or Most Recently Relevant to Health Maintenance Insurance [employer] MED[employer]ARE [employer] PPO Advance Directives * CPR (Attempt to Resuscitate) (Latest Code Status on File) Date Activated Date Inactivated Comments 04/30/2019 10:42 AM 05/04/2019 3:53 PM Question Answer Comments Code Status (Patient has no pulse and is not breathing): CPR (Attempt to Resuscitate) Medical Interventions (Patie nt has pulse or is breathing): Full * Full Code Date Activated Date Inactivated Comments 04/06/2017 2:07 AM 04/09/2017 4:11 PM Care Teams Machine Veneer Repairer Relationship Specialty Start Date End Date bK Hernández DO [address] [place] [address] PCP - General Internal Medicine 04/09/23
[2024-11-14] MEDS: LACTATED RINGERS 1000ML 1,000 ML 999 ML IV (09:49)
[2024-11-14] MEDS: ONDANSETRON 4MG/2ML VIAL 4 MG IV (09:49)
[2024-11-14 09:50] LABS: Hematocrit 46.5 % (37.0-47.0); Hemoglobin 15.6 g/dL (12.2-16.2); Immature Granulocytes % 0.3 %; Mean Corpuscular HGB Conc 33.5 g/dL (31.8-35.4); Mean Corpuscular Hemoglobin 33.2 pg (27.0-31.2); Mean Corpuscular Volume 98.9 fl (81-99); Nucleated Red Blood Cells % 0 %; Platelet Count 460 K/mm3 (142-424); Red Blood Count 4.70 M/mm3 (4.20-5.40); Red Cell Distribution Width-SD 50.5 fL; White Blood Count 16.4 K/mm3 (4.8-10.8)
[2024-11-14 09:52] LABS: VBG HCO3 21.5 mmol/L (23-30); VBG PCO2 36.8 mmol/L (35-51); VBG PH 7.39 mmol/L (7.31-7.41); VBG PO2 43.6 mmol/L (28-40)
[2024-11-14 09:53] LABS: Adenovirus,PCR Not Detected (NotDetected); Chlamydophila Pneumoniae, PCR Not Detected (NotDetected); Coronavirus 19, PCR Not Detected (NotDetected); Coronovirus HKU1,PCR Not Detected (NotDetected); Influenza A, PCR Not Detected (NotDetected); Influenza AH1, 2009 Not Detected (NotDetected); Influenza AH1, PCR Not Detected (NotDetected); Influenza AH3,PCR Not Detected (NotDetected); Influenza B, PCR Not Detected (NotDetected); Mycoplasma Pneumoniae, PCR Not Detected (NotDetected); Parainfluenza 1, PCR Not Detected (NotDetected); Parainfluenza 2, PCR Not Detected (NotDetected); Parainfluenza 3, PCR Not Detected (NotDetected); Parainfluenza 4, PCR Not Detected (NotDetected)
[2024-11-14 09:56] LABS: Lactate Venous 3.1 mmol/L (0.4-2.0)
[2024-11-14 10:03] LABS: Alanine Aminotransferase 24 U/L (12-78); Albumin Level 4.5 g/dl (3.5-5.0); Albumin/Globulin Ratio 1.2 (1.1-1.8); Alkaline Phosphatase 91 U/L (38-126); Anion Gap 18.2 mEq/L (5-15); Aspartate Amino Transferase 29 U/L (14-36); Bilirubin,Total 0.9 mg/dl (0.2-1.3); Blood Urea Nitrogen 16 mg/dl (7-17); Calcium 10.1 mg/dl (8.4-10.2); Carbon Dioxide 22 mmol/L (22.0-30.0); Chloride 97 mmol/L (98-107); Creatinine Clearance Estimated 59 mL/min (50-200); Creatinine,Serum 0.60 mg/dl (0.52-1.04); Estimated Glomerular Filt Rate 97 ml/min (>60); GFR (African American) 118 ML/MIN (>60); Globulin 3.9 g/dL (1.3-3.2); Glucose 310 mg/dl (74-100); Potassium 3.2 mmoL/L (3.5-5.1); Sodium 134 mmol/L (136-145); Total Protein,Serum 8.4 g/dl (6.3-8.2)
[2024-11-14 10:03] LABS: Magnesium 1.1 mg/dl (1.6-2.3); Phosphorous 3.8 mg/dl (2.5-4.5)
[2024-11-14 10:08] LABS: C-Reactive Protein 16.2 mg/L (0-4)
[2024-11-14] MEDS: HYDRALAZINE 20MG/ML VIAL 10 MG IV ×2 (10:15→10:50)
[2024-11-14 10:17] LABS: NT Pro Brain Natriuretic Pep. 10700 pg/mL (0-450); Troponin I 0.03 ng/ml (0.00-0.034)
[2024-11-14 10:21] LABS: Bilirubin,Urine Negative (Negative); Color,Urine YELLOW (Yellow); Glucose,Urine (UA) 3+ (Negative); Ketones,Urine 3+ (Negative); Leukocyte Esterase,Urine Negative (Negative); PH,Urine 6.5 (5.0-8.5); Protein,Urine 3+ (Negative); Specific Gravity, Urine 1.025 (1.005-1.030); Urobilinogen,Urine 0.2 EU/dl (0.2)
[2024-11-14 10:22] LABS: Procalcitonin 0.084 ng/mL (0.0-2.0)
[2024-11-14 10:27] LABS: Benzodiazepines Screen,Urine Negative ng/ml (<200)
[2024-11-14 10:28] LABS: Amphetamine/Metha Screen,Urine Negative ng/ml (<1000)
[2024-11-14 10:29] LABS: Barbiturates Screen,Urine Negative ng/ml (<200); Opiate Screen,Urine Positive ng/ml (<300)
[2024-11-14 10:30] LABS: Phencyclidine Screen,Urine Negative ng/ml (<25)
[2024-11-14 10:32] LABS: Methadone Screen,Urine Negative ng/ml (<300)
[2024-11-14 10:57] LABS: Acetone, Serum (Rapid) None Detected (None Detect)
[2024-11-14 10:58] LABS: Bacteria,Urine Trace /lpf; Squamous Epithelial Cell,Urine Occasional #/hpf (0-5)
[2024-11-14] MEDS: IOPAMIDOL-370 (76%);100ML BOTTLE 160 ML IV (11:08)
[2024-11-14] MEDS: 0.9 % SODIUM CHLORIDE 50 ML VIAL 10 ML IV (11:08)
[2024-11-14] MEDS: MAGNESIUM SULFATE IN WATER 2 GM/50 ML PIGGYBACK IV ×2 (11:25→12:16)
--- NOTE | 2024-11-14 12:54 | PC.NURSE ---
meter shop supervisor contacted regarding bed.
[2024-11-14 13:08] LABS: Troponin I 0.04 ng/ml (0.00-0.034)
--- NOTE | 2024-11-14 13:09 | PC.NURSE ---
called report to [facility] on 2nd floor
--- NOTE | 2024-11-14 13:35 | P.HP_ITS ---
<Statement entered by Casa Ibanez MD - 11/15/24 14:24> Start Zosyn for colitis, patient stated she was feeling hot, requested cold water, and now endorses pain. Agree with rest of plan as outlined by the TECHNICAL SERVICES MANAGER. History of Present Illness *Admission Date: 11/14/24 *Reason for visit:: feeling sick, vomiting *History of present illness: Ms. Agosto is a 73-year-old female who presented to the emergency department today with nausea, vomiting, generalized weakness and poor intake for approximately 1 week. 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 Patient's spouse states that for the last week she has been sick, has had poor appetite and little p.o. intake. He states that she started vomiting yesterday and had a large bowel movement last night. Patient recently began receiving home health soon due to decubitus wounds on her right lower buttock/upper thigh and coccyx area. Patient has been states that he is concerned she may be dehydrated and that she has been possibly running fevers as she has been diaphoretic lately. Patient endorses feeling worse than normal but states she feels okay right now . [facility] Disclaimer: The information contained in this section may have been updated after the patient was seen, as this information can be updated by other users. Medical History Decubitus skin ulcer CHF exacerbation CVA (cerebral vascular accident) Pain due to onychomycosis of toenails of both feet Hip replacement planned Coronary artery disease Renal cyst, left Chest pain HTN (hypertension) Abnormal electrocardiography Gastroesophageal reflux disease Dyspnea Chest pain Neuropathy, cervical (radicular) Left shoulder strain Chronic prescription opiate use Declining functional status Hypertensive urgency Callus of foot Onychomycosis Diabetic foot Chronic, continuous use of opioids Hemiplegia affecting right dominant side Gastroenteritis Bronchitis Surgical History History of knee replacement History of back surgery Social History (Updated 11/14/24 @ 14:31 by Yanelis Degroot RN) Smoking Status: Current every day smoker tobacco type: cigarettes packs per day: 1 alcohol intake: former substance use type: denies use current occupational status: retired and disabled Travel in the last 8 weeks?: None household members: spouse housing: other caffeine: No Have you lived/traveled outside [place] in past 30 days?: No Contact w/someone who lives/traveled outside US past 30 days?: No Exposure to someone with infectious disease in past 14 days?: No Do you have a fever (greater than 100.4 F or 38 C)?: No Have you tested positive for COVID-19?: No Exposed to someone with COVID-19 in past 14 days?: No Do you have a sore throat?: No Do you have a cough?: Yes Do you have any weakness?: Yes Are you experiencing any nausea/vomitting?: No Do you have any diarrhea?: Yes Are you experiencing any unusual bleeding?: No Do you have any muscle aches/pain?: Yes Do you have any abdominal pain?: No Are you experiencing loss of taste or smell?: No Other Medical History Have you received the Flu Vaccine for this season: No Have you received the Pneumonia Vaccine: Yes Review of Systems *Cardiovascular Cardiovascular: Denies chest pain and Denies dyspnea *Respiratory Respiratory: Denies dyspnea *Gastrointestinal Gastrointestinal: Denies abdominal pain, Denies diarrhea, Denies nausea and Denies vomiting *Genitourinary Genitourinary: Reports urinary incontinence *Musculoskeletal Musculoskeletal: Reports atrophy, Reports limited range of motion and Reports muscle weakness Psychiatric Psychiatric: Reports anxiety Meds Home Medications and Allergies Home Medications ?Medication ?Instructions ?Recorded ?Confirmed ?Type oxycodone-acetaminophen 10 mg-325 1 tab PO QIDP PRN Mo derate Pain 04/02/23 11/14/24 History mg tablet (Scale Score 5-6) morphine 15 mg tablet,extended 30 mg (2 x 15 mg) PO DA ANGELITA #30 tabs 03/30/24 11/14/24 Rx release cholecalciferol (vitamin D3) 1,250 1,250 mcg PO WEEKLY #10 caps 05/15/24 11/14/24 Rx mcg (50,000 unit) capsule blood pressure monitor #1 ea 08/16/24 11/14/24 Rx blood sugar diagnostic (Accu-Chek #100 ea 09/06/24 Rx Guide test strips) atorvastatin 40 mg tablet 40 mg PO DAILY #90 tabs 10/2211/14/24 Rx baclofen 10 mg tablet 10 mg PO Q8HP PRN muscle spa sm 11/14/24 11/14/24 History gabapentin 600 mg tablet 600 mg PO TID 11/14/2411/14 History hydroxyzine HCl 10 mg tablet 10 mg PO BIDP PRN Anxiety 11/14/24 11/14/24 History insulin aspar prt-insulin aspart 12 unit SQ DAILY 10/2311/14/24 History 100 unit/mL (70-30) subcutaneous soln (Novolog Mix 70-30 U-100 Insuln) insulin glargine 100 32 unit SQ DAILY 11/14/24 History unit-lixisenatide 33 mcg/mL subcutaneous pen (Soliqua 100/33) paroxetine HCl 20 mg tablet 60 mg PO HS 11/14/2411/14 History prochlorperazine maleate 5 mg 5 mg PO TIDP PRN anxiety or nausea 11/14/24 11/14/24 History tablet quetiapine 50 mg tablet 50 mg PO HS 11/14/24 5 History New Prescriptions to Start Prescriptions: Allergies Allergy/AdvReac Type Severity Reaction Status Date / Time cefuroxime (From CEFTIN) Allergy Mild Verified 08/16/24 11:54 codeine Allergy Verified 08/16/24 11:54 Exam Data for Last 24 hours Vital signs and Labs for Last 24 Hours: Temp Pulse Resp BP Pulse Ox O2 Del Method 98.1 F 80 20 155/74 H 96 Room Air 11/14/24 13:11 11/14/24 13:11 11/14/24 13:11 11/14/24 13:11 11/14/24 12:45 11/14/24 13:11 Laboratory Results - last 24 hr 11/14/24 09:38: Phosphorus 3.8, Magnesium 1.1 L 11/14/24 09:40: WBC 16.4 H, RBC 4.70, Hgb 15.6, Hct 46.5, MCV 98.9, MCH 33.2 H, MCHC 33.5, RDW 13.8, Plt Count 460 H, MPV 8.9, Neut % (Auto) 88.0 H, Lymph % (Auto) 6.8 L, [place] % (Auto) 4.5, Eos % (Auto) 0.0 L, Baso % (Auto) 0.4, Neut # (Auto) 14.4 H, Lymph # (Auto) 1.1, [place] # (Auto) 0.7, Eos # (Auto) 0.0, Baso # (Auto) 0.1, VBG pH 7.39, VBG pCO2 36.8, VBG pO2 43.6 H, VBG HCO3 21.5 L, VBG Total CO2 22.7 L, VBG O2 Saturation 78.0 H, VBG Base Excess -3.5 L, VBG Lactic Acid 3.1 H, Sodium 134 L, Potassium 3.2 L, Chloride 97 L, Carbon Dioxide 22, Anion Gap 18.2 H, BUN 16, Creatinine 0.60, Estimated Creat Clear 59, Estimated GFR 97, Est GFR ( Amer) 118, Glucose 310 H, Calcium 10.1, Total Bilirubin 0.9, AST 29, ALT 24, Alkaline Phosphatase 91, Troponin I 0.03, C-Reactive Protein 16.2 H, NT-Pro-B Natriuret Pep 93456 H, Total Protein 8.4 H D, Albumin 4.5, Globulin 3.9 H, Albumin/Globulin Ratio 1.2, Procalcitonin 0.084, Acetone Level None detected 11/14/24 09:50: Chlamy pneumoniae PCR Not detected, Adenovirus (PCR) Not detected, B. pertussis DNA (PCR) Not detected, Coronavirus OC43 (PCR) Not detected, Coronavirus HKU1 (PCR) Not detected, Coronavirus 229E (PCR) Not detected, SARS-CoV-2 (PCR) Not detected, Coronavirus NL63 (PCR) Not detected, Human Metapneumovir PCR Not detected, Influenza A (H1) PCR Not detected, Influ A (H1N1/09) PCR Not detected, Influenza A (H3) PCR Not detected, Influenza Type A (PCR) Not detected, Influenza Type B (PCR) Not detected, M. pneumoniae (PCR) Not detected, Parainfluenza 1 (PCR) Not detected, Parainfluenza 2 (PCR) Not detected, Parainfluenza 3 (PCR) Not detected, Parainfluenza 4 (PCR) Not detected, RSV (PCR) Not detected, Entero/Rhino (PCR) Not detected 11/14/24 : Urine Color Yellow, Urine Appearance Slightly cloudy, Urine pH 6.5, Ur Specific [place] 1.025, Urine Protein 3+ A, Urine Glucose (UA) 3+, Urine Ketones 3+, Urine Blood 2+ A, Urine Nitrate Negative, Urine Bilirubin Negative, Urine Urobilinogen 0.2, Ur Leukocyte Esterase Negative, Urine RBC None, Urine WBC 3-5, Ur Squamous Epith Cells Occasional, Urine Bacteria Trace, Urine Opiates Screen Positive H, Urine Methadone Screen Negative, Ur Barbituates Screen Negative, Ur Phencyclidine Scrn Negative, Ur Amphetamines Screen Negative, U Benzodiazepines Scrn Negative, Urine Cocaine Screen Negative, U Marijuana (THC) Screen Negative I & O for Last 24 hours: Intake & Output 11/11/24 11/12/24 11/13/24 11/14/24 23:59 23:59 23:59 23:59 Intake Total 1100 / 1100 Balance 1100 / 1100 Weight 77.111 kg Constitutional Constitutional: mild distress, chronically ill appearing and cooperative *Routine HEENT Exam Head: Present normocephalic Eye: Present EOMI ENT: Present mucous membranes dry *Routine Neck Exam Neck: Absent JVD or lymphadenopathy *Routine Respiratory Exam Respiratory: Present CTA bilaterally, diminished air movement, able to speak in complete sentences and symmetric chest movement *Routine Cardiovascular Exam Cardiovascular: Present RRR; Absent murmur *Routine Abdominal Exam Abdominal: Present soft and normoactive bowel sounds; Absent tenderness or distended *Routine Rectal Exam Rectal:: deferred *Routine Genitalia Exam Genitalia:: deferred *Routine Extremities Exam Extremities: Absent edema or full ROM Comments: Contractures of bilateral upper and lower extremities *Routine Skin Exam Skin: Present dry, pallor and wounds; Absent intact Comments: Wound to coccyx and right lower buttock/upper thigh *Routine Neurological Exam Neurological: Present alert; Absent moving all extremities Assessment and Plan *Assessment and plan (1) Dehydration: Status: Acute Category: Medical Code(s): E86.0 - Dehydration (2) Colitis: Status: Acute Category: Medical Code(s): K52.9 - Noninfective gastroenteritis and colitis, unspecified (3) Hypokalemia: Status: Acute Category: Medical Code(s): E87.6 - Hypokalemia (4) Hypomagnesemia: Status: Acute Category: Medical Code(s): E83.42 - Hypomagnesemia (5) Nausea & vomiting: Status: Acute Category: Medical Code(s): R11.2 - Nausea with vomiting, unspecified (6) NSTEMI (non-ST elevated myocardial infarction): Status: Acute Category: Medical Code(s): I21.4 - Non-ST elevation (NSTEMI) myocardial infarction (7) Anxiety: Status: Acute Category: Medical Code(s): F41.9 - Anxiety disorder, unspecified (8) Diabetes mellitus with diabetic neuropathy: Status: Chronic Qualifiers: Diabetes mellitus rodent exterminator insulin use: with rodent exterminator use Diabetes mellitus type: type 2 Qualified Code(s): E11.40 - Type 2 diabetes mellitus with diabetic neuropathy, unspecified; Z79.4 - watermaster (current) use of insulin Category: Medical Code(s): E11.40 - Type 2 diabetes mellitus with diabetic neuropathy, unspecified (9) Decubitus skin ulcer: Status: Acute Qualifiers: Pressure injury location: sacral region Pressure injury stage: stage 1 Qualified Code(s): L89.151 - Pressure ulcer of sacral region, stage 1 Category: Medical Code(s): L89.90 - Pressure ulcer of unspecified site, unspecified stage Plan ER workup was obtained and was significant for leukocytosis of 16.4 with neutrophilia, elevated hemoglobin and hematocrit, lactic elevated at 3.1, hypokalemia with a potassium of 3.2, anion gap 18.2. Patient's glucose is elevated at 310 and magnesium was significantly low at 1.1. Troponin slightly elevated at 0.03 trending upward to 0.04. Patient continues to deny abdominal pain, chest pain, nausea, vomiting, diarrhea, cough, congestion. BNP is significantly elevated at 10,700 but patient does not appear volume overloaded. Urine sample was significant for 3+ protein and 2+ blood?nitrate and leuk esterase negative. CT imaging showed no intracranial hemorrhage, mass, or midline shift. No large vessel occlusion or stenosis. Chest CT showed no pneumonia, CT of abdomen/pelvis shows evidence of colitis?no bowel obstruction noted. Patient was also found to have moderate stage IV decubitus ulcer on her right upper thigh lower buttock region and stage I pressure area on her coccyx. Patient's spouse states that they recently received home health for wound care needs. Patient is able to answer questions with short or one-word answers. Patient has been provided majority of information and background. I discussed this case with the ER physician Dr. Friedman and I agreed to accept the patient for dehydration, hypomagnesemia, hypokalemia, and leukocytosis. Plan of care as follows: #Dehydration #Colitis #Leukocytosis ?Patient denies diarrhea or abdominal pain, nontender to palpation. Normoactive bowel sounds noted. Patient did receive 1 L LR bolus in the ED, will continue with gentle rehydration of NS at 100 mL/H. Patient appears hypovolemic. Diarrhea panel ordered. ?Will hold on antibiotics at this time as leukocytosis likely reactive and not related to infectious etiology. Chest CT negative for pneumonia, UA without infection. Ordered CBC for the a.m. Blood cultures pending. ?Full liquid diet ordered, advance diet as tolerated. #History of CVA with quadriplegia #Decubitus ulcer ? Dressings placed on decubitus ulcers noted. Wound care ordered for further evaluation. ? 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 She is bedbound. PT/OT ordered for evaluation of patient's mobility. #Type 2 diabetes: ACHS fingersticks, SSI ordered. A1c pending. #NSTEMI: Patient denies chest pain or discomfort. EKG reassuring, sinus rhythm with occasional PVC, no ST elevation noted. Patient troponin slightly elevated 0.03, 0.04. Continuous monitoring and evaluation advisor in place. Echo 11/2023 shows LVEF of 70%. #Hypokalemia #Hypomagnesia ? Magnesium 1.1, potassium 3.2. ? Replace magnesium and potassium per protocol. Repeat CMP in the AM. #Anxiety: Continue quetiapine 50 mg at bedtime, Compazine 5 mg 3 times daily as needed, paroxetine 60 mg at bedtime, hydroxyzine 10 mg twice daily as needed. #Chronic pain: Continue baclofen 10 mg every 8 hour as needed, gabapentin 600 mg 3 times daily, morphine 30 mg daily, Percocet 1 tab 4 times a day as needed #Tobacco use disorder: Spoke with patient and her spouse about tobacco use, she states that she does not inhale. Discussed nicotine patch, patient refused. Full code Frequent turns VTE?Lovenox Full liquid diet, advance as tolerated
--- NOTE | 2024-11-14 13:50 | PC.NURSE ---
arrived to the floor by stretcher from ed
[2024-11-14 13:55] LABS: Reflex Lactic Add Lactic Reflex
[2024-11-14 13:59] LABS: Lipase 62 U/L (23-300)
--- NOTE | 2024-11-14 14:12 | PC.WOUNDNOTE ---
right below gluteal cleft near hip
--- NOTE | 2024-11-14 14:24 | HMH.PHAINT1 ---
Pharmacy Intervention Comments: home medication list verified using list from outpatient pharmacy and interview with pt
--- NOTE | 2024-11-14 14:49 | CA_ITS ---
APPROVED REPORT EXAM: Limited 2D Echocardiogram Transportation Dispatcher: EUGENIO Shepard, RVS Ht: 5 ft 1 in Wt: 143lbs BSA: 1.64 BP: 155/74 mmHg Indications: Dehydration, Bedridden, CVA, Smoker,Pulmonary edema Echo Enhancing Agent Comments: Extremely limited acoustic windows with patient intoerance to exam. 2D Dimensions LA Volume 50.60 mL LA Volume Index 30.85 mL/m2 (M/F) 16-34 M-Mode Dimensions RVDd 2.37 cm (0.9-2.6) LVDd 4.34 cm (3.5-5.7) LVDs 2.76 cm (3.5-5.7) IVSd 0.84 cm (0.6-1.1) PWd 0.89 cm (0.6-1.1) EF (Teich) 45.00% FS 30.00% EDV (Teich) 84.90 mL ESV (Teich) 28.50 mL LV Diastology E Decel Time 157 (160-240 msec) E/A Ratio 0.50 MED A' 6.90 cm/s LAT A' 6.10 cm/s Aortic Valve AoV Peak Fernando. 103.0 (50-130 cm/s) AO Peak GR. 4.20 mmHg AO Mean GR. 2.10 (<5 mmHg) AO VTI 13.0 (18-25 cm) Mitral Valve MV A Velocity 126.0 (40-130 cm/s) E/A Ratio 0.50 Left Ventricle The left ventricle is normal size. Left ventricular systolic function is grossly normal. There is increased left ventricular wall thickness. Regional wall motion is difficult to evaluate in the setting of technically difficult study. The left ventricular diastolic function is indeterminate. LVEF is 50-55% Right Ventricle The right ventricle is not well-visualized, but grossly appears normal in size and function. Atria The left atrium is mildly dilated. The right atrium is not well-visualized. The interatrial septum is not well-visualized. Aortic Valve The aortic valve leaflets are not well-visualized. There is no hemodynamically significant aortic valvular stenosis. Trace aortic regurgitation is present. Mitral Valve The mitral valve is normal in structure. No evidence of mitral valve stenosis. Trace mitral regurgitation is present. Tricuspid Valve The tricuspid valve leaflets are thin and pliable. Trace tricuspid regurgitation. There is insufficient TR jet to estimate RVSP. Pulmonic Valve The pulmonary valve is not well-visualized. Great Vessels The aortic root is not well-visualized. The IVC is not well-visualized. Pericardium There is a trivial, anterior pericardial effusion present. No echo indications of tamponade. Other Information Study Quality: Technically Difficult Conclusion Technically very difficult study due to poor acoustic windows. Grossly, there is normal biventricular systolic function. Mild LA dilation. No significant valvular stenosis or regurgitation in the visualized valves. Trivial, anterior pericardial effusion is present. Electronically signed by : Angie Hollis MD 11/14/2024 23:49:51
[2024-11-14] MEDS: 0.9 % SODIUM CHLORIDE 1000ML 1,000 ML 75 ML IV (15:33)
[2024-11-14] MEDS: PIPERCILLIN/TAZO 3.375 GM in 0.9 % SODIUM CHLORIDE 50 ML IV ×2 (15:33→22:06)
[2024-11-14] MEDS: humaLOG 100 UNITS/ML 10ML VIAL (SSI) SUBCUT ×2 (16:01→22:04)
[2024-11-14 16:03] LABS: POC Glucose,Bedside 206 gm/dL (70-110)
[2024-11-14 16:32] LABS: Lactic Acid Follow Up (RFLX 1) 1.3 mmol/L (0.7-2.1)
[2024-11-14 17:05] LABS: Troponin I 0.07 ng/ml (0.00-0.034)
[2024-11-14 17:37] LABS: Thyroid Stimulating Hormone 0.44 uIU/mL (0.465-4.68)
[2024-11-14 17:46] LABS: Hemoglobin A1C 7.9 % (4.0-6.0)
[2024-11-14] MEDS: GABAPENTIN 600MG TABLET 600 MG PO (22:05)
[2024-11-14] MEDS: PARoxetine 20MG TABLET 60 MG PO (22:05)
[2024-11-14] MEDS: QUETIAPINE 100MG TABLET 50 MG PO (22:05)
[2024-11-14] MEDS: ATORVASTATIN 40MG TABLET 40 MG PO (22:06)
[2024-11-15] VITALS: BP 163/61; PULSE 66; PULSE 70; RESP 16; TEMP 36.5; O2SAT 94
[2024-11-15 01:40] LABS: Acinetobacter calcoaceticus-ba Not Detected; Bacteroides fragilis Not Detected; Candida auris Not Detected; Candida glabrata Not Detected; Enterobacterales Not Detected; Enterococcus faecalis Not Detected; Enterococcus faecium Not Detected; Klebsiella aerogenes Not Detected; Klebsiella pneumoniae grp Not Detected; Proteus spp. Not Detected; Salmonella spp. Not Detected; Serratia marcescens Not Detected; Staphylococcus epidermidis Not Detected; Staphylococcus lugdunensis Not Detected; Staphylococcus spp. Detected; Stenotrophomonas maltophilia Not Detected; Streptococcus agalactiae(GrpB) Not Detected; Streptococcus pyogenes Group A Not Detected; Streptococcus spp. Not Detected
[2024-11-15] MEDS: PIPERCILLIN/TAZO 3.375 GM in 0.9 % SODIUM CHLORIDE 50 ML IV ×4 (03:22→21:34)
[2024-11-15 04:00] VITALS: BP 141/66; PULSE 65; PULSE 69; RESP 16; TEMP 36.7; O2SAT 95; BMI 26.5
[2024-11-15] MEDS: OXYCODONE 10MG W/APAP 325MG TABLET 1 EACH PO (06:06)
[2024-11-15 06:21] LABS: POC Glucose,Bedside 106 gm/dL (70-110)
[2024-11-15 06:30] LABS: Hematocrit 39.5 % (37.0-47.0); Immature Granulocytes % 0.5 %; Mean Corpuscular HGB Conc 33.9 g/dL (31.8-35.4); Mean Corpuscular Hemoglobin 33.6 pg (27.0-31.2); Mean Corpuscular Volume 99.0 fl (81-99); Nucleated Red Blood Cells % 0 %; Platelet Count 408 K/mm3 (142-424); Red Blood Count 3.99 M/mm3 (4.20-5.40); Red Cell Distribution Width-SD 51.1 fL; White Blood Count 14.3 K/mm3 (4.8-10.8)
[2024-11-15 06:33] LABS: Hemoglobin 13.3 g/dL (12.2-16.2)
[2024-11-15 06:39] LABS: POC Glucose,Bedside 161 gm/dL (70-110)
[2024-11-15 07:00] LABS: Alanine Aminotransferase 11 U/L (12-78); Albumin Level 3.6 g/dl (3.5-5.0); Albumin/Globulin Ratio 1.3 (1.1-1.8); Alkaline Phosphatase 70 U/L (38-126); Aspartate Amino Transferase 31 U/L (14-36); Bilirubin,Total 0.7 mg/dl (0.2-1.3); Blood Urea Nitrogen 19 mg/dl (7-17); Calcium 9.0 mg/dl (8.4-10.2); Carbon Dioxide 26 mmol/L (22.0-30.0); Chloride 100 mmol/L (98-107); Creatinine Clearance Estimated 49 mL/min (50-200); Creatinine,Serum 0.70 mg/dl (0.52-1.04); Estimated Glomerular Filt Rate 82 ml/min (>60); GFR (African American) 99 ML/MIN (>60); Globulin 2.8 g/dL (1.3-3.2); Glucose 90 mg/dl (74-100); Magnesium 2.1 mg/dl (1.6-2.3); Sodium 133 mmol/L (136-145); Total Protein,Serum 6.4 g/dl (6.3-8.2)
[2024-11-15 07:03] LABS: Anion Gap 10.1 mEq/L (5-15); Potassium 3.1 mmoL/L (3.5-5.1)
[2024-11-15 08:00] VITALS: BP 151/55; PULSE 63; PULSE 70; RESP 16; TEMP 36.9; O2SAT 92
[2024-11-15 08:09] LABS: NT Pro Brain Natriuretic Pep. 6790 pg/mL (0-450)
--- NOTE | 2024-11-15 08:23 | PC.NURSE ---
recieved a call at 200 AM about this Pt have Gram + Cocci in Clusters, Staphylococcus Species PCR. Notified [place] electronic resources librarian, He was notified at [phone].
--- NOTE | 2024-11-15 09:23 | HMH.OTEV ---
OT Evaluation Rehab OT IP Evaluation Start: 11/14/24 14:17 Freq: ONCE Status: Active Protocol: Document 11/14/24 14:17 MELY (Rec: 11/15/24 09:23 MELY [id number]) Rehab OT IP Assessment Subjective History Per HPI: *History of present illness: Ms. Agosto is a 73-year-old female who presented to the emergency department today with nausea, vomiting, generalized weakness and poor intake for approximately 1 week. 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 Patient's spouse states that for the last week she has been sick, has had poor appetite and little p.o. intake. He states that she started vomiting yesterday and had a large bowel movement last night. Patient recently began receiving home health soon due to decubitus wounds on her right lower buttock/upper thigh and coccyx area. Patient has been states that he is concerned she may be dehydrated and that she has been possibly running fevers as she has been diaphoretic lately. Patient endorses feeling worse than normal but states she feels okay right now . Subjective What are you doing? Pt asleep as therapy entered room. Pt's present and reported background and hx of pt. reported pt lives with him in home with 3 steps to enter home. Pt needs assist with ADLs and IADLs. is there 13/09 to assist with pt, and has help from cousin and caregiver coming couple days a week. Pt has shower chair and bedside commode, however, primarily performs bed bathing. reported they have a ana maria lift to assist with transfers of pt, but is unsure of lift. reports pt is usually assist to transfer from supine to EOB and unable to hold sitting balance, pt had stroke and has R side weakness and has been using a w/c since 2019 and needs assist to maneuver w/c. Therapy woke pt up and informed pt they would perform going to EOB. Pt was dependent to go from supine to EOB and unable to tolerate sitting at EOB for more than 40 seconds. Pt laid back down in bed with Dependent assist from therapy. Pt left with call light and all other needs in reach with present. Pt presented with contracture of L hand and digits. Therapy was able to PROM digits and hand, however pt reported pain. Objective Right Upper Sev Limitation >75% Extremity Gross ROM Left Upper Extremity Sev Limitation >75% Gross ROM Wrist Limitations of Contracture Range of Motion Bed Mobility bed mobility-scooting,bed mobility - supine/sit Assist Level Total/Dependent (100%) Rehab OT IP prob,goals,plan Problems Date of Evaluation: 11/15/24 Rehab Potential Rehab Potential Innapropriate for Skilled Therapy Discharge Plan OT Discharge Plan At this time, pt is at baseline and would not benefit from skilled acute OT services and interventions while at [facility]. Once medically stable, pt is able to DC back home with OT services to improve QOL of pt. and caregivers would also benefit from education of transfers and use of ana maria lift to improve caregiver assistance and improve quality of care and assist from caregivers. Eval Complexity Eval Charge Codes 49793 - High Complexity PHYSICIAN CERTIFICATION: I certify the specified therapy services for Yolanda Agosto are required, authorized, and reviewed every 30 days.
--- NOTE | 2024-11-15 09:55 | EXP.CARD.CON ---
History of Present Illness History of Present Illness Consult date: 11/15/24 Requesting physician: Casa Ibanez Chief complaint: vomiting History of present illness: Hospitalist note:Ms. Agosto is a 73-year-old female who presented to the emergency department today with nausea, vomiting, generalized weakness and poor intake for approximately 1 week. 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 Patient's spouse states that for the last week she has been sick, has had poor appetite and little p.o. intake. He states that she started vomiting yesterday and had a large bowel movement last night. Patient recently began receiving home health soon due to decubitus wounds on her right lower buttock/upper thigh and coccyx area. Patient has been states that he is concerned she may be dehydrated and that she has been possibly running fevers as she has been diaphoretic lately. Patient endorses feeling worse than normal but states she feels okay right now . Cardiology note: Cardiology was asked to consult on Mrs. Agosto for elevated troponins. Patient's troponin on admission was 0.03 and has trended up to 0.07 in the setting of acute illness with stage IV decubitus ulcer on her right upper thigh and buttock region, dehydration and colitis. Continues to deny chest pain or soa. Limited echo shows a grossly normal biventricular systolic function, mild LA dilation and no significant valvular stenosis or regurg in the visualized valves. Trivial anterior pericardial effusion is present. [facility] Disclaimer: The information contained in this section may have been updated after the patient was seen, as this information can be updated by other users. Medical History Decubitus skin ulcer CHF exacerbation CVA (cerebral vascular accident) Pain due to onychomycosis of toenails of both feet Hip replacement planned Coronary artery disease Renal cyst, left Chest pain HTN (hypertension) Abnormal electrocardiography Gastroesophageal reflux disease Dyspnea Chest pain Neuropathy, cervical (radicular) Left shoulder strain Chronic prescription opiate use Declining functional status Hypertensive urgency Callus of foot Onychomycosis Diabetic foot Chronic, continuous use of opioids Hemiplegia affecting right dominant side Gastroenteritis Bronchitis Surgical History History of knee replacement History of back surgery Social History (Updated 11/14/24 @ 14:31 by Yanelis Degroot RN) Smoking Status: Current every day smoker tobacco type: cigarettes packs per day: 1 alcohol intake: former substance use type: denies use current occupational status: retired and disabled Travel in the last 8 weeks?: None household members: spouse housing: other caffeine: No Have you lived/traveled outside [place] in past 30 days?: No Contact w/someone who lives/traveled outside [place] past 30 days?: No Exposure to someone with infectious disease in past 14 days?: No Do you have a fever (greater than 100.4 F or 38 C)?: No Have you tested positive for COVID-19?: No Exposed to someone with COVID-19 in past 14 days?: No Do you have a sore throat?: No Do you have a cough?: Yes Do you have any weakness?: Yes Are you experiencing any nausea/vomitting?: No Do you have any diarrhea?: Yes Are you experiencing any unusual bleeding?: No Do you have any muscle aches/pain?: Yes Do you have any abdominal pain?: No Are you experiencing loss of taste or smell?: No Review of Systems Review of Systems Review of systems:: pertinent systems reviewed and negative unless documented below Exam Data for Last 24 hours Vital signs and Labs for Last 24 Hours: Temp Pulse Resp BP Pulse Ox O2 Del Method 98.4 F 63 16 151/55 H 92 L Room Air 11/15/24 08:00 11/15/24 08:00 11/15/24 08:00 11/15/24 08:00 11/15/24 08:00 11/15/24 08:00 Laboratory Results - last 24 hr 11/14/24 09:38: Phosphorus 3.8, Magnesium 1.1 L, Lipase 62 11/14/24 09:40: WBC 16.4 H, RBC 4.70, Hgb 15.6, Hct 46.5, MCV 98.9, MCH 33.2 H, MCHC 33.5, RDW 13.8, Plt Count 460 H, MPV 8.9, Neut % (Auto) 88.0 H, Lymph % (Auto) 6.8 L, [place] % (Auto) 4.5, Eos % (Auto) 0.0 L, Baso % (Auto) 0.4, Neut # (Auto) 14.4 H, Lymph # (Auto) 1.1, [place] # (Auto) 0.7, Eos # (Auto) 0.0, Baso # (Auto) 0.1, VBG pH 7.39, VBG pCO2 36.8, VBG pO2 43.6 H, VBG HCO3 21.5 L, VBG Total CO2 22.7 L, VBG O2 Saturation 78.0 H, VBG Base Excess -3.5 L, VBG Lactic Acid 3.1 H, Sodium 134 L, Potassium 3.2 L, Chloride 97 L, Carbon Dioxide 22, Anion Gap 18.2 H, BUN 16, Creatinine 0.60, Estimated Creat Clear 59, Estimated GFR 97, Est GFR ( Amer) 118, Glucose 310 H, Hemoglobin A1c 7.9 H, Calcium 10.1, Total Bilirubin 0.9, AST 29, ALT 24, Alkaline Phosphatase 91, Troponin I 0.03, C-Reactive Protein 16.2 H, NT-Pro-B Natriuret Pep 63316 H, Total Protein 8.4 H D, Albumin 4.5, Globulin 3.9 H, Albumin/Globulin Ratio 1.2, Procalcitonin 0.084, Acetone Level None detected 11/14/24 09:41: A. baumannii (PCR) Not detected, Bacteroides fragilis Not detected, Becki albicans (PCR) Not detected, Becki auris (PCR) Not detected, C. glabrata (PCR) Not detected, C. krusei (PCR) Not detected, C. parapsilosis (PCR) Not detected, C. tropicalis (PCR) Not detected, Cryptococcus neoformans PCR Not detected, Enterobacterales (PCR) Not detected, Enterococc faecalis PCR Not detected, Enterococc faecium PCR Not detected, E. coli (PCR) Not detected, H. influenzae DNA Not detected, Klebsiella aerogenes (PCR) Not detected, Klebsiella oxytoca PCR Not detected, K. pneumoniae group (PCR) Not detected, List. monocytogenes PCR Not detected, N. meningitidis (PCR) Not detected, Proteus species (PCR) Not detected, Salmonella spp. (PCR) Not detected, Serratia marcescens PCR Not detected, Staphylococcus sp PCR Detected A, Staph aureus (PCR) Not detected, mecA/C & MREJ Resist Gene Not applicable, mecA/C-Methicil Resis Gene Not applicable, Staph epidermidis (PCR) Not detected, Staph lugdunensis (TEM-PCR) Not detected, S. maltophilia (PCR) Not detected, Streptococcus sp PCR Not detected, S.agalactiae Grp B ALEJANDRO Not detected, Strep pneumoniae (PCR) Not detected, S. pyogenes GrpA ALEJANDRO Not detected, P. aeruginosa (PCR) Not detected, Braxton/B-Vanco Res Genes Not applicable, blaIMP Car res Gene PCR Not applicable, KPC-Carbap Res Gene PCR Not applicable, blaNDM Car Res Gene PCR Not applicable, OXA-48 Carbapenem Resis Gene (PCR) Not applicable, blaVIM Car Res Gene PCR Not applicable, CTX-M Gene Resistance (PCR) Not applicable, MCR-1 Resistance Gene Not applicable 11/14/24 09:50: Chlamy pneumoniae PCR Not detected, Adenovirus (PCR) Not detected, B. pertussis DNA (PCR) Not detected, Coronavirus OC43 (PCR) Not detected, Coronavirus HKU1 (PCR) Not detected, Coronavirus 229E (PCR) Not detected, SARS-CoV-2 (PCR) Not detected, Coronavirus NL63 (PCR) Not detected, Human Metapneumovir PCR Not detected, Influenza A (H1) PCR Not detected, Influ A (H1N1/09) PCR Not detected, Influenza A (H3) PCR Not detected, Influenza Type A (PCR) Not detected, Influenza Type B (PCR) Not detected, M. pneumoniae (PCR) Not detected, Parainfluenza 1 (PCR) Not detected, Parainfluenza 2 (PCR) Not detected, Parainfluenza 3 (PCR) Not detected, Parainfluenza 4 (PCR) Not detected, RSV (PCR) Not detected, Entero/Rhino (PCR) Not detected 11/14/24 12:30: Troponin I 0.04 H 11/14/24 15:55: POC Glucose 206 H 11/14/24 15:57: Lactate 1.3, Troponin I 0.07 H, TSH 0.44 L 11/14/24 21:55: POC Glucose 161 H 11/14/24 : Urine Color Yellow, Urine Appearance Slightly cloudy, Urine pH 6.5, Ur Specific [place] 1.025, Urine Protein 3+ A, Urine Glucose (UA) 3+, Urine Ketones 3+, Urine Blood 2+ A, Urine Nitrate Negative, Urine Bilirubin Negative, Urine Urobilinogen 0.2, Ur Leukocyte Esterase Negative, Urine RBC None, Urine WBC 3-5, Ur Squamous Epith Cells Occasional, Urine Bacteria Trace, Urine Opiates Screen Positive H, Urine Methadone Screen Negative, Ur Barbituates Screen Negative, Ur Phencyclidine Scrn Negative, Ur Amphetamines Screen Negative, U Benzodiazepines Scrn Negative, Urine Cocaine Screen Negative, U Marijuana (THC) Screen Negative 11/15/24 06:03: POC Glucose 106 11/15/24 06:22: WBC 14.3 H, RBC 3.99 L, Hgb 13.3 D, Hct 39.5, MCV 99.0, MCH 33.6 H, MCHC 33.9, RDW 14.1, Plt Count 408, MPV 8.8, Neut % (Auto) 75.8, Lymph % (Auto) 15.2, [place] % (Auto) 7.9, Eos % (Auto) 0.2, Baso % (Auto) 0.4, Neut # (Auto) 10.8 H, Lymph # (Auto) 2.2, [place] # (Auto) 1.1 H, Eos # (Auto) 0.0, Baso # (Auto) 0.1, Sodium 133 L, Potassium 3.1 L, Chloride 100, Carbon Dioxide 26, Anion Gap 10.1, BUN 19 H, Creatinine 0.70, Estimated Creat Clear 49, Estimated GFR 82, Est GFR ( Amer) 99, Glucose 90 D, Calcium 9.0, Magnesium 2.1 D, Total Bilirubin 0.7, AST 31, ALT 11 L D, Alkaline Phosphatase 70, NT-Pro-B Natriuret Pep 6790 H, Total Protein 6.4, Albumin 3.6 D, Globulin 2.8, Albumin/Globulin Ratio 1.3 I & O for Last 24 hours: Intake & Output 11/12/24 11/13/24 11/14/24 11/15/24 23:59 23:59 23:59 23:59 Intake Total 1500 / 1500 410 / 410 Output Total 250 / 250 Balance 1500 / 1500 160 / 160 Weight 143 lb 4.8 oz 140 lb 9 oz Meds Home Medications and Allergies Home Medications ?Medication ?Instructions ?Recorded ?Confirmed ?Type oxycodone-acetaminophen 10 mg-325 1 tab PO QIDP PRN Moderate Pain 04/02/23 11/14/24 History mg tablet (Scale Score 5-6) morphine 15 mg tablet,extended 30 mg (2 x 15 mg) PO DAILY #30 tabs 03/30/24 11/14/24 Rx release cholecalciferol (vitamin D3) 1,250 1,250 mcg PO WEEKLY #10 caps 05/15/24 11/14/24 Rx mcg (50,000 unit) capsule blood pressure monitor #1 ea 08/16/24 11/14/24 Rx blood sugar diagnostic (Accu-Chek #100 ea 09/06/24 11/14/24 Rx Guide test strips) atorvastatin 40 mg tablet 40 mg PO DAILY #90 tabs 11/01/24 11/14/24 Rx baclofen 10 mg tablet 10 mg PO Q8HP PRN muscle spasm 11/14/24 11/14/24 History gabapentin 600 mg tablet 600 mg PO TID 11/14/24 11/14/24 History hydroxyzine HCl 10 mg tablet 10 mg PO BIDP PRN Anxiety 11/14/24 11/14/24 History insulin aspar prt-insulin aspart 12 unit SQ DAILY 11/14/24 11/14/24 History 100 unit/mL (70-30) subcutaneous soln (Novolog Mix 70-30 U-100 Insuln) insulin glargine 100 32 unit SQ DAILY 11/14/24 11/14/24 History unit-lixisenatide 33 mcg/mL subcutaneous pen (Soliqua 100/33) paroxetine HCl 20 mg tablet 60 mg PO HS 11/14/24 11/14/24 History prochlorperazine maleate 5 mg 5 mg PO TIDP PRN anxiety or nausea 11/14/24 11/14/24 History tablet quetiapine 50 mg tablet 50 mg PO HS 11/14/24 11/14/24 History New Prescriptions to Start Prescriptions: Allergies Allergy/AdvReac Type Severity Reaction Status Date / Time cefuroxime (From CEFTIN) Allergy Mild Verified 08/16/24 11:54 codeine Allergy Verified 08/16/24 11:54 Assessment and Plan *Assessment and plan (1) Myocardial injury: Status: Acute Category: Medical Code(s): I5A - Non-ischemic myocardial injury (non-traumatic) (2) History of coronary artery disease: Status: Acute Category: Medical Code(s): Z86.79 - Personal history of other diseases of the circulatory system Plan Acute myocardial injury History of coronary artery disease Troponin trending up to 0.07 in the setting of acute illness with colitis and vomiting Medical management heart cath noted 2022 Limited echo shows a grossly normal biventricular systolic function with mild LA dilation. No significant valvular stenosis or regurg noted. Trivial anterior pericardial effusion is present ProBNP on admission 10,700 trending down to 6790 Chest CTA on admission was concerning for pulmonary edema, however patient denies chest pain or shortness of breath and was admitted for colitis, vomiting and concern for dehydration. No plan for intervention at this time. Recommended outpatient ischemic evaluation. Recommend to closely monitor volume status with fluid replacement. If patient becomes hypoxic consider diuretics Continue aspirin and statin CV summary 11/15/2024: Likely acute myocardial injury secondary to colitis/vomiting. No plan for intervention at this time. Patient does need an outpatient ischemic evaluation once stable and discharged. Closely monitor volume status with fluid replacement. May consider diuretics if patient becomes volume overloaded. Cardiology will sign off. Please contact service for any additional concerns.
[2024-11-15 10:23] VITALS: BMI 26.5
[2024-11-15] MEDS: GABAPENTIN 600MG TABLET 600 MG PO ×3 (10:33→21:31)
[2024-11-15] MEDS: MORPHINE 15MG EXTENDED RELEASE TAB 30 MG PO (10:35)
[2024-11-15] MEDS: POTASSIUM CHLORIDE 20MEQ TAB 40 MEQ PO ×3 (10:35→21:31)
--- NOTE | 2024-11-15 11:18 | SW/DCPLANNER ---
Patient has [facility] for home health services. Danis Kelly
--- NOTE | 2024-11-15 11:20 | P.PN_ITS ---
<Statement entered by Casa Ibanez MD - 11/15/24 14:28> Agree with plan of care as outlined by the DISTRICT COURT JUDGE. Subjective *Date: 11/15/24 *Time: 14:10 Interval history: Patient resting in bed, appears comfortable. Spouse at bedside. Blood culture came back positive for staph. Patient remains on Zosyn IV every 6 hours. Medical Exam Vital signs and Labs for Last 24 Hours: Vital Signs Temp Pulse Pulse Resp BP BP Pulse Ox 11/15/24 08:00 98.4 F 63 16 151/55 H 92 L 11/15/24 08:00 92 L 11/15/24 08:00 70 11/15/24 04:00 98.1 F 69 16 141/66 H 95 11/15/24 04:00 65 11/15/24 00:00 70 11/14/24 21:00 11/14/24 20:00 11/14/24 20:00 80 11/14/24 20:00 98.1 F 78 16 163/78 H 95 11/14/24 18:30 11/14/24 17:06 11/14/24 16:00 80 11/14/24 16:00 97.6 F 78 16 146/63 H 96 11/14/24 15:00 11/14/24 13:55 75 16 139/57 L 96 11/14/24 13:50 11/14/24 13:11 98.1 F 80 20 155/74 H 11/14/24 12:45 82 14 142/92 H 96 11/14/24 12:00 18 185/87 H 11/14/24 11:31 81 13 143/51 H 96 11/14/24 11:25 80 13 134/54 L 95 O2 Del Method 11/15/24 08:00 Room Air 11/15/24 08:00 Room Air 11/15/24 08:00 11/15/24 04:00 Room Air 11/15/24 04:00 11/15/24 00:00 11/14/24 21:00 Room Air 11/14/24 20:00 Room Air 11/14/24 20:00 11/14/24 20:00 Room Air 11/14/24 18:30 Room Air 11/14/24 17:06 Room Air 11/14/24 16:00 11/14/24 16:00 Room Air 11/14/24 15:00 Room Air 11/14/24 13:55 Room Air 11/14/24 13:50 Room Air 11/14/24 13:11 Room Air 11/14/24 12:45 11/14/24 12:00 11/14/24 11:31 11/14/24 11:25 Intake and Output 11/14/24 11/15/24 11/15/24 23:59 07:59 15:59 Intake Total 300 / 1500 50 / 410 360 / 410 Output Total 250 / 250 Balance 300 / 1500 -200 / 160 360 / 160 Intake: Intake, Oral Amount 360 / 360 Intake, Total IV Amount 300 / 1500 50 / 50 0.9 % Sodium Chloride 1000ML 1, 100 / 100 000 ml @ 75 mls/hr IV .[id number] [facility] Rx#:[id number] KCl 20mEq/100ml 100 ml @ 50 mls 100 / 200 /hr IV Q2H [facility] Rx#:[id number] Pipercillin/Tazo 3.375 gm In 0. 100 / 100 50 / 50 9 % Sodium Chloride 50 ml @ 100 mls/hr IV Q6H [facility] Rx#:[id number] Output: Output, Urine Amount 250 / 250 Other: Number of Unmeasured Voids 1 Weight 63.758 kg 63.758 kg Patient Weight 11/15/24 23:59 Weight 63.758 kg Laboratory Results - last 24 hr 11/14/24 09:38: Lipase 62 11/14/24 09:40: Hemoglobin A1c 7.9 H 11/14/24 09:41: A. baumannii (PCR) Not detected, Bacteroides fragilis Not detected, Becki albicans (PCR) Not detected, Becki auris (PCR) Not detected, C. glabrata (PCR) Not detected, C. krusei (PCR) Not detected, C. parapsilosis (PCR) Not detected, C. tropicalis (PCR) Not detected, Cryptococcus neoformans PCR Not detected, Enterobacterales (PCR) Not detected, Enterococc faecalis PCR Not detected, Enterococc faecium PCR Not detected, E. coli (PCR) Not detected, H. influenzae DNA Not detected, Klebsiella aerogenes (PCR) Not detected, Klebsiella oxytoca PCR Not detected, K. pneumoniae group (PCR) Not detected, List. monocytogenes PCR Not detected, N. meningitidis (PCR) Not detected, Proteus species (PCR) Not detected, Salmonella spp. (PCR) Not detected, Serratia marcescens PCR Not detected, Staphylococcus sp PCR Detected A, Staph aureus (PCR) Not detected, mecA/C & MREJ Resist Gene Not applicable, mecA/C-Methicil Resis Gene Not applicable, Staph epidermidis (PCR) Not detected, Staph lugdunensis (TEM-PCR) Not detected, S. maltophilia (PCR) Not detected, Streptococcus sp PCR Not detected, S.agalactiae Grp B ALEJANDRO Not detected, Strep pneumoniae (PCR) Not detected, S. pyogenes GrpA ALEJANDRO Not detected, P. aeruginosa (PCR) Not detected, Braxton/B-Vanco Res Genes Not applicable, blaIMP Car res Gene PCR Not applicable, KPC-Carbap Res Gene PCR Not applicable, blaNDM Car Res Gene PCR Not applicable, OXA-48 Carbapenem Resis Gene (PCR) Not applicable, blaVIM Car Res Gene PCR Not applicable, CTX-M Gene Resistance (PCR) Not applicable, MCR-1 Resistance Gene Not applicable 11/14/24 09:50: Chlamy pneumoniae PCR Not detected, Adenovirus (PCR) Not detected, B. pertussis DNA (PCR) Not detected, Coronavirus OC43 (PCR) Not detected, Coronavirus HKU1 (PCR) Not detected, Coronavirus 229E (PCR) Not detected, SARS-CoV-2 (PCR) Not detected, Coronavirus NL63 (PCR) Not detected, Human Metapneumovir PCR Not detected, Influenza A (H1) PCR Not detected, Influ A (H1N1/09) PCR Not detected, Influenza A (H3) PCR Not detected, Influenza Type A (PCR) Not detected, Influenza Type B (PCR) Not detected, M. pneumoniae (PCR) Not detected, Parainfluenza 1 (PCR) Not detected, Parainfluenza 2 (PCR) Not detected, Parainfluenza 3 (PCR) Not detected, Parainfluenza 4 (PCR) Not detected, RSV (PCR) Not detected, Entero/Rhino (PCR) Not detected 11/14/24 12:30: Troponin I 0.04 H 11/14/24 15:55: POC Glucose 206 H 11/14/24 15:57: Lactate 1.3, Troponin I 0.07 H, TSH 0.44 L 11/14/24 21:55: POC Glucose 161 H 11/15/24 06:03: POC Glucose 106 11/15/24 06:22: WBC 14.3 H, RBC 3.99 L, Hgb 13.3 D, Hct 39.5, MCV 99.0, MCH 33.6 H, MCHC 33.9, RDW 14.1, Plt Count 408, MPV 8.8, Neut % (Auto) 75.8, Lymph % (Auto) 15.2, Cedar % (Auto) 7.9, Eos % (Auto) 0.2, Baso % (Auto) 0.4, Neut # (Auto) 10.8 H, Lymph # (Auto) 2.2, Cedar # (Auto) 1.1 H, Eos # (Auto) 0.0, Baso # (Auto) 0.1, Sodium 133 L, Potassium 3.1 L, Chloride 100, Carbon Dioxide 26, Anion Gap 10.1, BUN 19 H, Creatinine 0.70, Estimated Creat Clear 49, Estimated GFR 82, Est GFR ( Amer) 99, Glucose 90 D, Calcium 9.0, Magnesium 2.1 D, Total Bilirubin 0.7, AST 31, ALT 11 L D, Alkaline Phosphatase 70, NT-Pro-B Natriuret Pep 6790 H, Total Protein 6.4, Albumin 3.6 D, Globulin 2.8, Albumin/Globulin Ratio 1.3 Vital Signs Temp Pulse Pulse Resp BP BP Pulse Ox 04/02/23 06:32 04/02/23 05:00 04/02/23 03:00 04/02/23 04:00 98.6 F 84 20 133/107 H 98 04/02/23 01:00 04/01/23 23:00 04/02/23 00:00 98.2 F 83 20 174/66 H 93 L 04/01/23 23:01 174/66 H 04/01/23 22:07 85 187/73 H 97 04/01/23 20:30 82 150/66 H 97 04/01/23 20:02 83 159/103 H 97 04/01/23 19:52 78 156/69 H 95 04/01/23 22:38 97.9 F 74 16 127/82 04/01/23 17:30 72 121/44 L 94 L 04/01/23 16:39 98.3 F 75 17 149/80 H 95 O2 Del Method 04/02/23 06:32 Room Air 04/02/23 05:00 Room Air 04/02/23 03:00 Room Air 04/02/23 04:00 04/02/23 01:00 Room Air 04/01/23 23:00 Room Air 04/02/23 00:00 04/01/23 23:01 04/01/23 22:07 04/01/23 20:30 04/01/23 20:02 04/01/23 19:52 04/01/23 22:38 Room Air 04/01/23 17:30 Room Air 04/01/23 16:39 Room Air Intake and Output 04/01/23 04/02/23 04/02/23 23:59 07:59 15:59 Intake Total 100 / 100 350 / 350 Output Total 800 / 800 Balance 100 / -700 -450 / -450 Intake: Intake, Total IV Amount 100 / 100 350 / 350 0.9 % Sodium Chloride 1000ML 1, 300 / 300 000 ml @ 50 mls/hr IV .Q20H [facility] Rx#:[id number] Levofloxacin/D5w 250 mg In 50 50 / 50 ml @ 100 mls/hr IV Q24H [facility] Rx# :[id number] Output: Output, Urine Amount 800 / 800 Other: Number of Unmeasured Voids 1 Number of Bowel Movements 1 Weight 81.647 kg 83.098 kg Patient Weight 04/02/23 23:59 Weight 83.098 kg Laboratory Results - last 24 hr 04/01/23 16:40: WBC 11.3 H, RBC 4.23, Hgb 14.1, Hct 43.1, MCV 101.8 H, MCH 33.4 H, MCHC 32.8, RDW 14.3, Plt Count 414, MPV 7.4, Neut % (Auto) 85.6 H, Lymph % (Auto) 9.0 L, Cedar % (Auto) 5.0, Eos % (Auto) 0.0 L, Baso % (Auto) 0.3, Neut # (Auto) 9.7 H, Lymph # (Auto) 1.0, Cedar # (Auto) 0.6, Eos # (Auto) 0.0, Baso # (Auto) 0.0, Total Counted 100, Neutrophils % (Manual) 85 H, Lymphocytes % (Manual) 14, Monocytes % (Manual) 1 L, Platelet Estimate Normal, Macrocytosis 1+, Sodium 133 L, Potassium 3.8, Chloride 100, Carbon Dioxide 28, Anion Gap 8.8, BUN 14, Creatinine 0.60, Estimated Creat Clear 64, Estimated GFR 98, Est GFR ( Amer) 118, Glucose 280 H, Lactate 2.0, Calcium 9.5, Total Bilirubin 0.8, AST 36, ALT 27, Alkaline Phosphatase 108, Total Protein 7.8, Albumin 4.2, Globulin 3.6 H, Albumin/Globulin Ratio 1.2, Lipase 47 04/01/23 19:15: SARS-CoV-2 (PCR) Not detected, Influenza A Untype (PCR) Not detected, Influenza Type B (PCR) Not detected 04/01/23 22:00: Urine Color Yellow, Urine Appearance Cloudy, Urine pH 6.0, Ur Specific [place] 1.020, Urine Protein 2+, Urine Glucose (UA) 2+, Urine Ketones Negative, Urine Blood 2+, Urine Nitrate Negative, Urine Bilirubin Negative, Urine Urobilinogen 0.2, Ur Leukocyte Esterase Trace, Urine RBC 3-5, Urine WBC 5- 10, Ur Squamous Epith Cells 5-10, Urine Bacteria 1+ 04/02/23 05:40: POC Glucose 271 H 04/02/23 06:42: WBC 16.2 H D, RBC 3.97 L, Hgb 13.2, Hct 40.2, MCV 101.2 H, MCH 33.3 H, MCHC 32.9, RDW 14.5, Plt Count 453 H, MPV 8.0, Neut % (Auto) 89.3 H, Lymph % (Auto) 6.7 L, Cedar % (Auto) 3.8, Eos % (Auto) 0.1, Baso % (Auto) 0.2, Neut # (Auto) 14.4 H, Lymph # (Auto) 1.1, Cedar # (Auto) 0.6, Eos # (Auto) 0.0, Baso # (Auto) 0.0, Sodium 132 L, Potassium 3.2 L, Chloride 95 L, Carbon Dioxide 28, Anion Gap 12.2, BUN 13, Creatinine 0.60, Estimated Creat Clear 65, Estimated GFR 98, Est GFR ( Amer) 118, Glucose 320 H, Calcium 9.5, Magnesium 1.3 L, Total Bilirubin 0.9, AST 30, ALT 26, Alkaline Phosphatase 115, Total Protein 7.9, Albumin 4.3, Globulin 3.6 H, Albumin/Globulin Ratio 1.2 I & O for Labs for Last 24 Hours: Intake & Output 11/12/24 11/13/24 11/14/24 11/15/24 23:59 23:59 23:59 23:59 Intake Total 1500 / 1500 410 / 410 Output Total 250 / 250 Balance 1500 / 1500 160 / 160 Weight 65 kg 63.758 kg Intake & Output 03/30/23 03/31/23 04/01/23 04/02/23 23:59 23:59 23:59 23:59 Intake Total 100 / 100 350 / 350 Output Total 800 / 800 Balance 100 / -700 -450 / -450 Weight 81.647 kg 83.098 kg Microbiology Reports for the Last 24 Hours: Microbiology 11/14/24 09:38 Blood Blood Culture - Preliminary 11/14/24 10:25 Blood Blood Culture - Preliminary NO GROWTH AFTER 24 HOURS Constitutional: Present no acute distress, average body habitus, chronically ill appearing and cooperative Head: Present atraumatic and normocephalic ENT: Present normal exam Comment:: Edentulous Neck: Present normal inspection Respiratory: Present normal respiratory effort and symmetric chest movement; Absent wheezes or crackles Cardiac: Present Reg Rate and Rhythm GI: Present soft, tenderness (Nonfocal, no guarding or rebound) and normal bowel sounds; Absent distention Rectal (female): Present deferred (female): Present deferred Extremities: Absent tenderness or edema Comment:: Sarcopenia, contractures from neurologic injury Skin: Present intact and wounds; Absent erythema Comment:: Decubitus right lower buttock/upper thigh?stage IV, pressure area coccyx Neuro: Present Grossly Intact, alert, awake and moves all extremities Assessment and Plan *Assessment and plan (1) Bacteremia: Status: Acute Category: Medical Code(s): R78.81 - Bacteremia (2) Colitis: Status: Acute Category: Medical Code(s): K52.9 - Noninfective gastroenteritis and colitis, unspecified (3) Dehydration: Status: Acute Category: Medical Code(s): E86.0 - Dehydration (4) Leukocytosis: Status: Acute Category: Medical Code(s): D72.829 - Elevated white blood cell count, unspecified (5) History of coronary artery disease: Status: Acute Category: Medical Code(s): Z86.79 - Personal history of other diseases of the circulatory system (6) NSTEMI (non-ST elevated myocardial infarction): Status: Acute Category: Medical Code(s): I21.4 - Non-ST elevation (NSTEMI) myocardial infarction (7) Diabetes mellitus with diabetic neuropathy: Status: Chronic Qualifiers: Diabetes mellitus chcf insulin use: 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 Diabetes mellitus type: type 2 Qualified Code(s): E11.40 - Type 2 diabetes mellitus with diabetic neuropathy, unspecified; 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.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 Category: Medical Code(s): E11.40 - Type 2 diabetes mellitus with diabetic neuropathy, unspecified (8) HTN (hypertension): Status: Acute Qualifiers: Hypertension type: unspecified Qualified Code(s): I10 - Essential (primary) hypertension Category: Medical Code(s): I10 - Essential (primary) hypertension (9) PVD (peripheral vascular disease): Status: Acute Category: Medical Code(s): I73.9 - Peripheral vascular disease, unspecified (10) Anxiety: Status: Acute Category: Medical Code(s): F41.9 - Anxiety disorder, unspecified (11) Severe protein-calorie malnutrition: Status: Acute Category: Medical Code(s): E43 - Unspecified severe protein-calorie malnutrition Plan ER workup was obtained and was significant for leukocytosis of 16.4 with neutrophilia, elevated hemoglobin and hematocrit, lactic elevated at 3.1, hypoka lemia with a potassium of 3.2, anion gap 18.2. Patient's glucose is elevated at 310 and magnesium was significantly low at 1.1. Troponin slightly elevated at 0.03 trending upward to 0.04. Patient continues to deny abdominal pain, chest pain, nausea, vomiting, diarrhea, cough, congestion. BNP is significantly elevated at 10,700 but patient does not appear volume overloaded. Urine sample was significant for 3+ protein and 2+ blood?nitrate and leuk esterase negative. CT imaging showed no intracranial hemorrhage, mass, or midline shift. No large vessel occlusion or stenosis. Chest CT showed no pneumonia, CT of abdomen/pelvis shows evidence of colitis?no bowel obstruction noted. Patient was also found to have moderate stage IV decubitus ulcer on her right upper thigh lower buttock region and stage I pressure area on her coccyx. Patient's spouse states that they recently received home health for wound care needs. Patient is able to answer questions with short or one-word answers. Patient has been provided majority of information and background. I discussed this case with the ER physician Dr. Friedman and I agreed to accept the patient for dehydration, hypomagnesemia, hypokalemia, and leukocytosis. Plan of care as follows: #Dehydration #Colitis #Leukocytosis ?Patient denies diarrhea or abdominal pain, nontender to palpation. Normoactive bowel sounds noted. Diarrhea panel ordered, pt. has not had any episodes of diarrhea since admission. ?Blood culture + for Staph. Pt. started on Zosyn 3.375 mg q6h. WBC trending downward to 14.3. Chest CT negative for pneumonia, UA without infection. Ordered CBC for the a.m. ?Full liquid diet ordered, advance diet as tolerated. #History of CVA with quadriplegia #Decubitus ulcer #Severe protein?calorie malnutrition ? Dressings placed on decubitus ulcers noted. Wound care ordered for further evaluation. Patient meets criteria for severe protein calorie malnutrition, nutrition consulted. ? 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 She is bedbound. PT/OT ordered, evaluation states pt. is at baseline function at this time. Pt. does currently have home health 2x per week. #Type 2 diabetes: ACHS fingersticks, SSI ordered. A1c 7.9%. #NSTEMI: Patient denies chest pain or discomfort. EKG reassuring, sinus rhythm with occasional PVC, no ST elevation noted. Patient troponin slightly elevated 0.03 trending upward to 0.07. Continuous athletic monitor in place. Echo shows LVEF 50 to 55%, cardiology consulted, pt. had heart cath in 2022 which recommended medical management. BNP originally elevated at 10,700 trended downward to 6790. No plan to for intervention at this time, recommend outpt ischemia work-up. Pt. does not appear volume overloaded at this time. #Hypokalemia #Hypomagnesia ? Magnesium 2.1, potassium 3.1. Continuing to replace potassium per protocol. ? Repeat CMP in the AM. #Anxiety: Continue quetiapine 50 mg at bedtime, Compazine 5 mg 3 times daily as needed, paroxetine 60 mg at bedtime, hydroxyzine 10 mg twice daily as needed. #Chronic pain: Continue baclofen 10 mg every 8 hour as needed, gabapentin 600 mg 3 times daily, morphine 30 mg daily, Percocet 1 tab 4 times a day as needed #Tobacco use disorder: Spoke with patient and her spouse about tobacco use, she states that she does not inhale. Discussed nicotine patch, patient refused. Full code Frequent turns VTE?Lovenox Full liquid diet, advance as tolerated
--- NOTE | 2024-11-15 11:34 | HMH.PTWOUND ---
Rehab Wound Evaluation Rehab IP Wound Evaluation Start: 11/14/24 14:17 Freq: ONCE Status: Active Protocol: Document 11/15/24 09:43 ANA LAURA (Rec: 11/15/24 11:05 ANA LAURA [id number]) Rehab PT Wound Assessment Subjective Subjective Per H&P: Ms. Agosto is a 73-year-old female who presented to the emergency department today with nausea , vomiting, generalized weakness and poor intake for approximately 1 week. 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 Patient's spouse states that for the last week she has been sick, has had poor appetite and little p.o. intake. He states that she started vomiting yesterday and had a large bowel movement last night. Patient recently began receiving home health soon due to decubitus wounds on her right lower buttock /upper thigh and coccyx area. Patient has been states that he is concerned she may be dehydrated and that she has been possibly running fevers as she has been diaphoretic lately. Patient endorses feeling worse than normal but states she feels okay right now . Wound Right Posterior Distal Hip Wound Type Pressure Ulcer Wound Staging Stage III Query Text:Stage I - Unbroken, red skin, no blanching. Stage II - Skin broken, superficial skin loss involving epidermis alone or also dermis. Partial loss of skin layers. Stage III - Pressure area involves epidermis, dermis and subcutaneous tissue, full thickness skin loss. Stage IV - Pressure area involves epidermis, subcutaneous tissue, bone and other supportive tissue. Full thickness skin loss with extensive destruction of underlying tissue and structures. Wound Length (cm) 3.3 Wound Width (cm) 4.4 Wound Depth (cm) 1.3 Wound Bed Appearance Beefy Red,[place],White Percentage 75 Granulated (%) Wound Margins Macerated Description Undermining Position 6-10 o-clock Undermining Depth ( 0.4 cm) Surrounding Tissue [place] Appearance Wound Drainage Purulent,Yellow Description Drainage Amount Small Dressing Status Changed Wound Topical Saline Irrigant Solution/Irrigant Packing Type Alginate Primary Dressing Composite Plan/Recommendation Comment Pt presents with 3.3L x 4.4w x 1.3d stage III pressure ulcer on her posterior R hip. A 0.4cm undermining is present from 7-10 o-clock. Pt's wound presented with minimal purulent drainage. Pt irrigated wound with saline, packed with calcium alginate, and covered with composite dressing. No need for sharp debridement at this time. Nursing staff to continue dressing changes every 2-3 days and as needed. Nursing staff to continue pressure relief per protocol to prevent further skin breakdown. Eval Complexity Eval Charge Codes 16584 - Moderate Complexity PHYSICIAN CERTIFICATION: I certify the specified therapy services for Yolanda Agosto are required, authorized, and reviewed every 30 days.
--- NOTE | 2024-11-15 11:49 | HMH.PTEV ---
Physical Therapy Evaluation Rehab PT IP Evaluation Start: 11/14/24 14:17 Freq: ONCE Status: Active Protocol: Document 11/15/24 11:35 ANA LAURA (Rec: 11/15/24 11:49 ANA LAURA [id number]) Subjective/History History History Per H&P: Ms. Agosto is a 73-year-old female who presented to the emergency department today with nausea , vomiting, generalized weakness and poor intake for approximately 1 week. 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 Patient's spouse states that for the last week she has been sick, has had poor appetite and little p.o. intake. He states that she started vomiting yesterday and had a large bowel movement last night. Patient recently began receiving home health soon due to decubitus wounds on her right lower buttock /upper thigh and coccyx area. Patient has been states that he is concerned she may be dehydrated and that she has been possibly running fevers as she has been diaphoretic lately. Patient endorses feeling worse than normal but states she feels okay right now . Subjective Subjective Pt's present and answered hx questions. Pt lives at home with 24/7 care provided by with assistance from his cousin. Pt normally DEP with mobility. Pt uses a w/c. Pt owns a ana maria lift but does not feel comfortable using it. New diagnosis of No cancer in past 12 months? [facility] How much help from another person do you currently need... Turning from your Total back to your side while in a flat bed without using bedrails? Moving from lying on Total back to sitting on the side of a flat bed without using bedrails? Moving to and from a Total bed to a chair ( including a wheelchair)? Standing up from a Total chair using your arms? (e.g., wheelchair, bedside chair) Walking in hospital Total room? Climbing 3-5 steps Total with a railing? Mobility Score 6 Mobility Level [facility] Mobility 2 Bed activities/dependent transfer Mobility Calculator Rehab PT IP Eval Objective Appearance Difficulty following moderate instructions Speech Pattern Clear Ambulation Patient Able to No Ambulate Balance Ability to Arise Unable Transfers Bed Transfer Ability Total/Dependent (100%) Rehab PT IP prob,goals,plan Problems Date of Evaluation: 11/15/24 Rehab Potential Rehab Potential Innapropriate for Skilled Therapy Discharge Plan PT Discharge Plan Pt would not benefit from skilled acute care PT as she appears to be at her baseline with mobility. Eval Complexity Eval Charge Codes 05050 - Moderate Complexity PHYSICIAN CERTIFICATION: I certify the specified therapy services for Yolanda Agosto are required, authorized, and reviewed every 30 days.
[2024-11-15] MEDS: humaLOG 100 UNITS/ML 10ML VIAL (SSI) SUBCUT ×2 (12:35→21:32)
[2024-11-15 12:50] LABS: POC Glucose,Bedside 180 gm/dL (70-110)
[2024-11-15 16:00] VITALS: BP 126/47; PULSE 60; PULSE 65; RESP 18; TEMP 37.3; O2SAT 95
[2024-11-15 16:36] LABS: POC Glucose,Bedside 198 gm/dL (70-110)
--- NOTE | 2024-11-15 19:15 | PC.NURSE ---
this RN got in report pt hadn't voided on dayshift - patient was bladder scanned at 191 with a resdiual of 311ml - Shamar at bedside and aware - will rescan in the morning if patient hasn't voided yet.
[2024-11-15 20:00] VITALS: BP 101/35; PULSE 57; PULSE 60; RESP 16; TEMP 36.4; O2SAT 92
[2024-11-15] MEDS: ATORVASTATIN 40MG TABLET 40 MG PO (21:31)
[2024-11-15] MEDS: PARoxetine 20MG TABLET 60 MG PO (21:31)
[2024-11-15] MEDS: QUETIAPINE 100MG TABLET 50 MG PO (21:31)
[2024-11-15 21:32] LABS: POC Glucose,Bedside 288 gm/dL (70-110)
[2024-11-15] MEDS: PRO-STAT AWC 30ML LIQUID PACKET 30 ML PO (21:32)
--- NOTE | 2024-11-15 23:39 | PC.NURSE ---
patient fed her pb crackers and she tolerated well, no issues swallowing or chewing.
[2024-11-16] VITALS: BP 113/60; PULSE 60; PULSE 62; RESP 16; TEMP 36.4; O2SAT 96
[2024-11-16] MEDS: PIPERCILLIN/TAZO 3.375 GM in 0.9 % SODIUM CHLORIDE 50 ML IV ×2 (03:48→09:43)
[2024-11-16] MEDS: OXYCODONE 10MG W/APAP 325MG TABLET 1 EACH PO (03:48)
[2024-11-16 04:00] VITALS: BP 131/54; PULSE 54; PULSE 55; RESP 16; TEMP 36.5; O2SAT 96; BMI 26.6
[2024-11-16] MEDS: humaLOG 100 UNITS/ML 10ML VIAL (SSI) SUBCUT (06:31)
[2024-11-16 06:35] LABS: POC Glucose,Bedside 184 gm/dL (70-110)
[2024-11-16 08:00] VITALS: BP 156/67; PULSE 59; PULSE 66; RESP 18; TEMP 36.6; O2SAT 97
[2024-11-16 08:16] LABS: Hematocrit 36.3 % (37.0-47.0); Hemoglobin 11.7 g/dL (12.2-16.2); Immature Granulocytes % 0.4 %; Mean Corpuscular HGB Conc 32.2 g/dL (31.8-35.4); Mean Corpuscular Hemoglobin 33.3 pg (27.0-31.2); Mean Corpuscular Volume 103.4 fl (81-99); Nucleated Red Blood Cells % 0 %; Platelet Count 349 K/mm3 (142-424); Red Blood Count 3.51 M/mm3 (4.20-5.40); Red Cell Distribution Width-SD 54.8 fL; White Blood Count 10.8 K/mm3 (4.8-10.8)
--- NOTE | 2024-11-16 08:22 | SW/DCPLANNER ---
Per PT/OT patient is currently at baseline and has all appropriate DME at home. Patient and are agreeable to return back home and resume home health services w/ [facility] at time of discharge. I did provide patient/ w/ [facility]. Per no further needs at this time. CM will contact [facility] at time of discharge to resume home health services. No further needs at this time.
[2024-11-16 08:28] LABS: Alanine Aminotransferase 16 U/L (12-78); Albumin Level 3.4 g/dl (3.5-5.0); Albumin/Globulin Ratio 1.3 (1.1-1.8); Alkaline Phosphatase 62 U/L (38-126); Anion Gap 11.9 mEq/L (5-15); Aspartate Amino Transferase 24 U/L (14-36); Bilirubin,Total 0.5 mg/dl (0.2-1.3); Blood Urea Nitrogen 20 mg/dl (7-17); Calcium 8.5 mg/dl (8.4-10.2); Carbon Dioxide 25 mmol/L (22.0-30.0); Chloride 100 mmol/L (98-107); Creatinine Clearance Estimated 49 mL/min (50-200); Creatinine,Serum 1.00 mg/dl (0.52-1.04); Estimated Glomerular Filt Rate 54 ml/min (>60); GFR (African American) 65 ML/MIN (>60); Globulin 2.6 g/dL (1.3-3.2); Glucose 215 mg/dl (74-100); Magnesium 2.0 mg/dl (1.6-2.3); Potassium 3.9 mmoL/L (3.5-5.1); Sodium 133 mmol/L (136-145); Total Protein,Serum 6.0 g/dl (6.3-8.2)
[2024-11-16] MEDS: PRO-STAT AWC 30ML LIQUID PACKET 30 ML PO (09:43)
[2024-11-16] MEDS: GABAPENTIN 600MG TABLET 600 MG PO (09:43)
[2024-11-16] MEDS: MORPHINE 15MG EXTENDED RELEASE TAB 30 MG PO (09:49)
--- NOTE | 2024-11-16 09:57 | P.DS_ITS ---
<Statement entered by Santhosh Robertson MD - 11/16/24 15:03> Rounded on patient after nurse practitioner. Personally examined and interviewed patient. Agree with exam findings and care plan as documented. General Admission date:: 11/14/24 Discharge date: 11/16/24 HPI HPI HPI: Ms. Agosto is a 73-year-old female who presented to the emergency department today with nausea, vomiting, generalized weakness and poor intake for approximately 1 week. 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 Patient's spouse states that for the last week she has been sick, has had poor appetite and little p.o. intake. He states that she started vomiting yesterday and had a large bowel movement last night. Patient recently began receiving home health soon due to decubitus wounds on her right lower buttock/upper thigh and coccyx area. Patient has been states that he is concerned she may be dehydrated and that she has been possibly running fevers as she has been diaphoretic lately. Patient endorses feeling worse than normal but states she feels okay right now . Hospital Course Hospital Course Hospital Course: ER workup was obtained and was significant for leukocytosis of 16.4 with neutrophilia, elevated hemoglobin and hematocrit, lactic elevated at 3.1, hypokalemia with a potassium of 3.2, anion gap 18.2. Patient's glucose on admission was elevated at 310 and magnesium was significantly low at 1.1. Troponin slightly elevated at 0.03 trending upward to 0.04. Patient continued to deny abdominal pain, chest pain, nausea, vomiting, diarrhea, cough, congestion. BNP is significantly elevated at 10,700 but patient did not appear volume overloaded. Urine sample was significant for 3+ protein and 2+ blood?nitrate and leuk esterase negative. CT imaging showed no intracranial hemorrhage, mass, or midline shift. No large vessel occlusion or stenosis. Chest CT showed no pneumonia, CT of abdomen/pelvis shows evidence of colitis?no bowel obstruction noted. Patient was also found to have moderate stage IV decubitus ulcer on her right upper thigh lower buttock region and stage I pressure area on her coccyx. Patient's spouse states that they recently received home health for wound care needs. Patient is able to answer questions with short or one-word answers. Patient has been provided majority of information and background. I discussed this case with the ER physician Dr. Friedman and I agreed to accept the patient for dehydration, hypomagnesemia, hypokalemia, and leukocytosis. Plan of care as follows: #Dehydration #Colitis #Leukocytosis ?Patient denies diarrhea or abdominal pain, nontender to palpation. Normoactive bowel sounds noted. Patient did not have any episodes of diarrhea during admission. ?Patient white count stabilized at 10.3. Blood culture preliminary came back positive for staph, likely contamination. Other blood culture bottle shows no growth. Patient was given Zosyn 3.375 mg every 6 hours empirically during admission. Will not continue antibiotics at discharge. ?Patient able to tolerate p.o. diet during admission without issues. #History of CVA with quadriplegia #Decubitus ulcer #Severe protein?calorie malnutrition ? Dressings placed on decubitus ulcers noted. Patient currently has home health services with wound care twice weekly. Continue at discharge. Patient meets criteria for severe protein calorie malnutrition, nutrition encouraged boost or Ensure drinks twice daily in addition to meals. ? 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 She is bedbound. PT/OT ordered, evaluation states pt. is at baseline function at this time. Pt. does currently have home health 2x per week, continue at discharge. #Type 2 diabetes: Patient should continue NovoLog 70-3012 units subcu daily at discharge. A1c 7.9%. #NSTEMI: Patient denies chest pain or discomfort. EKG reassuring, sinus rhythm with occasional PVC, no ST elevation noted. Patient troponin slightly elevated 0.03 trending upward to 0.07. Echo shows LVEF 50 to 55%, cardiology consulted, pt. had heart cath in 2022 which recommended medical management. BNP initially elevated at 10,700 trended downward to 6790. No plan to for intervention at this time, recommend outpt ischemia work-up. Patient appears euvolemic. #Hypokalemia #Hypomagnesia ? Potassium and magnesium stable at discharge, magnesium 2.0; potassium 3.9. Patient should follow-up with PCP in 1 week for BMP recheck. #Anxiety: Continue quetiapine 50 mg at bedtime, Compazine 5 mg 3 times daily as needed, paroxetine 60 mg at bedtime, hydroxyzine 10 mg twice daily as needed. #Chronic pain: Continue baclofen 10 mg every 8 hour as needed, gabapentin 600 mg 3 times daily, morphine 30 mg daily, Percocet 1 tab 4 times a day as needed #Tobacco use disorder: Spoke with patient and her spouse about tobacco use, she states that she does not inhale. Discussed smoking cessation with patient and family. Total time spent on discharge 37 minutes in counseling, documentation, chart review, and direct care with patient. Exam Data for Last 24 hours Vital signs and Labs for Last 24 Hours: Temp Pulse Resp BP Pulse Ox O2 Del Method O2 Flow Rate 97.8 F 59 L 18 156/67 H 97 Room Air 4 11/16/24 08:00 11/16/24 08:00 11/16/24 08:00 11/16/24 08:00 11/16/24 08:00 11/16/24 08:00 11/15/24 09:00 Laboratory Results - last 24 hr 11/14/24 : Urine Color Yellow, Urine Appearance Slightly cloudy, Urine pH 6.5, Ur Specific [place] 1.025, Urine Protein 3+ A, Urine Glucose (UA) 3+, Urine Ketones 3+, Urine Blood 2+ A, Urine Nitrate Negative, Urine Bilirubin Negative, Urine Urobilinogen 0.2, Ur Leukocyte Esterase Negative, Urine RBC None, Urine WBC 3-5, Ur Squamous Epith Cells Occasional, Urine Bacteria Trace 11/15/24 12:33: POC Glucose 180 H 11/15/24 16:13: POC Glucose 198 H 11/15/24 21:25: POC Glucose 288 H 11/16/24 06:27: POC Glucose 184 H 11/16/24 08:05: WBC 10.8, RBC 3.51 L, Hgb 11.7 L, Hct 36.3 L, MCV 103.4 H, MCH 33.3 H, MCHC 32.2, RDW 14.5, Plt Count 349, MPV 8.8, Neut % (Auto) 58.0, Lymph % (Auto) 30.8, Desha % (Auto) 8.9, Eos % (Auto) 1.3, Baso % (Auto) 0.6, Neut # (Auto) 6.3, Lymph # (Auto) 3.3, Desha # (Auto) 1.0, Eos # (Auto) 0.1, Baso # (Auto) 0.1, Sodium 133 L, Potassium 3.9 D, Chloride 100, Carbon Dioxide 25, Anion Gap 11.9, BUN 20 H, Creatinine 1.00 D, Estimated Creat Clear 49, Estimated GFR 54 L, Est GFR ( Amer) 65 D, Glucose 215 H, Calcium 8.5, Magnesium 2.0, Total Bilirubin 0.5, AST 24, ALT 16 D, Alkaline Phosphatase 62, Total Protein 6.0 L, Albumin 3.4 L, Globulin 2.6, Albumin/Globulin Ratio 1.3 I & O for Last 24 hours: Intake & Output 11/13/24 11/14/24 11/15/24 11/16/24 23:59 23:59 23:59 23:59 Intake Total 1500 / 1500 1160 / 1640 880 / 880 Output Total 250 / 250 150 / 150 Balance 1500 / 1500 910 / 1390 730 / 730 Weight 65 kg 63.758 kg 64.098 kg Microbiology Reports for the Last 24 Hours: Microbiology 11/14/24 09:38 Blood Blood Culture - Preliminary NO GROWTH AFTER 48 HOURS 11/14/24 15:57 Blood Blood Culture - Preliminary NO GROWTH AFTER 24 HOURS 11/14/24 15:57 Blood Blood Culture - Preliminary NO GROWTH AFTER 24 HOURS 11/14/24 10:25 Blood Blood Culture - Preliminary NO GROWTH AFTER 24 HOURS Constitutional Constitutional: no acute distress, average body habitus, chronically ill appearing and cooperative *Routine HEENT Exam Head: Present normocephalic Eye: Present EOMI ENT: Present mucous membranes moist *Routine Neck Exam Neck: Present supple and full ROM *Routine Respiratory Exam Respiratory: Present CTA bilaterally, able to speak in complete sentences and symmetric chest movement; Absent wheezes or crackles *Routine Cardiovascular Exam Cardiovascular: Present RRR; Absent murmur *Routine Abdominal Exam Abdominal: Present soft and normoactive bowel sounds; Absent tenderness or distended *Routine Extremities Exam Extremities: Present extremity cold to touch; Absent edema *Routine Skin Exam Skin: Present dry and wounds Comments: Pressure ulcer posterior right hip *Routine Neurological Exam Neurological: Present alert and oriented X3; Absent moving all extremities Routine Psychiatric Exam Psychiatric: Present normal affect Results Data Completed and Pending Labs on day of discharge: Labs from last 24 hours 11/16/24 11/16/24 11/15/24 08:05 06:27 21:25 WBC 10.8 RBC 3.51 L Hgb 11.7 L Hct 36.3 L MCV 103.4 H MCH 33.3 H MCHC 32.2 RDW 14.5 Plt Count 349 MPV 8.8 Neut % (Auto) 58.0 Lymph % (Auto) 30.8 Desha % (Auto) 8.9 Eos % (Auto) 1.3 Baso % (Auto) 0.6 Neut # (Auto) 6.3 Lymph # (Auto) 3.3 Desha # (Auto) 1.0 Eos # (Auto) 0.1 Baso # (Auto) 0.1 Sodium 133 L Potassium 3.9 D Chloride 100 Carbon Dioxide 25 Anion Gap 11.9 BUN 20 H Creatinine 1.00 D Estimated Creat Clear 49 Estimated GFR 54 L Est GFR ( Amer) 65 D Glucose 215 H POC Glucose 184 H 288 H Calcium 8.5 Magnesium 2.0 Total Bilirubin 0.5 AST 24 ALT 16 D Alkaline Phosphatase 62 Total Protein 6.0 L Albumin 3.4 L Globulin 2.6 Albumin/Globulin Ratio 1.3 Urine Color Urine Appearance Urine pH Ur Specific [place] Urine Protein Urine Glucose (UA) Urine Ketones Urine Blood Urine Nitrate Urine Bilirubin Urine Urobilinogen Ur Leukocyte Esterase Urine RBC Urine WBC Ur Squamous Epith Cells Urine Bacteria 11/15/24 11/15/24 11/14/24 16:13 12:33 Unknown WBC RBC Hgb Hct MCV MCH MCHC RDW Plt Count MPV Neut % (Auto) Lymph % (Auto) Desha % (Auto) Eos % (Auto) Baso % (Auto) Neut # (Auto) Lymph # (Auto) Desha # (Auto) Eos # (Auto) Baso # (Auto) Sodium Potassium Chloride Carbon Dioxide Anion Gap BUN Creatinine Estimated Creat Clear Estimated GFR Est GFR ( Amer) Glucose POC Glucose 198 H 180 H Calcium Magnesium Total Bilirubin AST ALT Alkaline Phosphatase Total Protein Albumin Globulin Albumin/Globulin Ratio Urine Color Yellow Urine Appearance Slightly cloudy Urine pH 6.5 Ur Specific [place] 1.025 Urine Protein 3+ A Urine Glucose (UA) 3+ Urine Ketones 3+ Urine Blood 2+ A Urine Nitrate Negative Urine Bilirubin Negative Urine Urobilinogen 0.2 Ur Leukocyte Esterase Negative Urine RBC None Urine WBC 3-5 Ur Squamous Epith Cells Occasional Urine Bacteria Trace Preliminary micro results at discharge 11/14/24 09:38 Blood Culture - Preliminary Blood NO GROWTH AFTER 48 HOURS 11/14/24 15:57 Blood Culture - Preliminary Blood NO GROWTH AFTER 24 HOURS 11/14/24 15:57 Blood Culture - Preliminary Blood NO GROWTH AFTER 24 HOURS 11/14/24 10:25 Blood Culture - Preliminary Blood NO GROWTH AFTER 24 HOURS DS: Diagnosis Discharge Diagnosis (1) Dehydration: Status: Acute Code(s): E86.0 - Dehydration (2) Colitis: Status: Acute Code(s): K52.9 - Noninfective gastroenteritis and colitis, unspecified (3) Hypokalemia: Status: Acute Code(s): E87.6 - Hypokalemia (4) Hypomagnesemia: Status: Acute Code(s): E83.42 - Hypomagnesemia (5) Nausea & vomiting: Status: Acute Code(s): R11.2 - Nausea with vomiting, unspecified (6) NSTEMI (non-ST elevated myocardial infarction): Status: Acute Code(s): I21.4 - Non-ST elevation (NSTEMI) myocardial infarction (7) Anxiety: Status: Acute Code(s): F41.9 - Anxiety disorder, unspecified (8) Diabetes mellitus with diabetic neuropathy: Status: Chronic Code(s): E11.40 - Type 2 diabetes mellitus with diabetic neuropathy, unspecified Qualifiers: Diabetes mellitus type: type 2 Diabetes mellitus keno terminal operator insulin use: with keno terminal operator use Qualified Code(s): E11.40 - Type 2 diabetes mellitus with diabetic neuropathy, unspecified; Z79.4 - intermodal customer service (current) use of insulin (9) Decubitus skin ulcer: Status: Acute Code(s): L89.90 - Pressure ulcer of unspecified site, unspecified stage Qualifiers: Pressure injury location: sacral region Pressure injury stage: stage 1 Qualified Code(s): L89.151 - Pressure ulcer of sacral region, stage 1 Meds Home Medications and Allergies Home Medications ?Medication ?Instructions ?Recorded ?Confirmed ?Type oxycodone-acetaminophen 10 mg-325 1 tab PO QIDP PRN Mo derate Pain 04/02/23 11/14/24 History mg tablet (Scale Score 5-6) morphine 15 mg tablet,extended 30 mg (2 x 15 mg) PO DA ANGELITA #30 tabs 03/30/24 11/14/24 Rx release cholecalciferol (vitamin D3) 1,250 1,250 mcg PO WEEKLY #10 caps 05/15/24 11/14/24 Rx mcg (50,000 unit) capsule blood pressure monitor #1 ea 08/16/24 11/14/24 Rx blood sugar diagnostic (Accu-Chek #100 ea 09/06/24 Rx Guide test strips) atorvastatin 40 mg tablet 40 mg PO DAILY #90 tabs 10/2211/14/24 Rx baclofen 10 mg tablet 10 mg PO Q8HP PRN muscle spa sm 11/14/24 11/14/24 History gabapentin 600 mg tablet 600 mg PO TID 11/14/2411/14 History hydroxyzine HCl 10 mg tablet 10 mg PO BIDP PRN Anxiety 11/14/24 11/14/24 History insulin aspar prt-insulin aspart 12 unit SQ DAILY 10/2311/14/24 History 100 unit/mL (70-30) subcutaneous soln (Novolog Mix 70-30 U-100 Insuln) insulin glargine 100 32 unit SQ DAILY 11/14/24 History unit-lixisenatide 33 mcg/mL subcutaneous pen (Soliqua 100/33) paroxetine HCl 20 mg tablet 60 mg PO HS 11/14/2411/14 History prochlorperazine maleate 5 mg 5 mg PO TIDP PRN anxiety or nausea 11/14/24 11/14/24 History tablet quetiapine 50 mg tablet 50 mg PO HS 11/14/24 5 History New Prescriptions to Start Prescriptions: Allergies Allergy/AdvReac Type Severity Reaction Status Date / Time cefuroxime (From CEFTIN) Allergy Mild Verified 08/16/24 11:54 codeine Allergy Verified 08/16/24 11:54 Discharge Plan Disposition Patient Disposition: Home, Self-Care Condition: Fair Discharge Order Discharge Orders: Discharge Order (Routine); Ordered 11/16/24 Ordered By: Marely Obando Follow up Plan Follow up with: Karen Abad APRN [Nurse Practitioner, Cardiology] - Enter time for follow up Kb Hernández DO [Primary Care Provider, Family Practice] - Enter time for follow up Prescriptions/Medication Reconciliation: Continued morphine 15 mg tablet extended release 30 mg PO DAILY Qty: 30 0RF (DME) blood pressure monitor Kit See Rx Instructions .Route Qty: 1 0RF Rx Instructions: As directed cholecalciferol (vitamin D3) 1,250 mcg (50,000 unit) capsule 1,250 mcg PO WEEKLY Qty: 10 0RF (DME) Accu-Chek Guide test strips Strip See Rx Instructions .ROUTE .COMPLEX Qty: 100 0RF Dose Instruction: CHECK FASTING BLOOD SUGAR ONCE DAILY NEEDED Rx Instructions: CHECK FASTING BLOOD SUGAR ONCE DAILY NEEDED atorvastatin 40 mg tablet 40 mg PO DAILY Qty: 90 3RF oxycodone-acetaminophen 10-325 mg tablet 1 tab PO QIDP PRN (Reason: Moderate Pain (Scale Score 5-6)) gabapentin 600 mg tablet 600 mg PO TID prochlorperazine maleate 5 mg tablet 5 mg PO TIDP PRN (Reason: anxiety or nausea) baclofen 10 mg tablet 10 mg PO Q8HP PRN (Reason: muscle spasm) paroxetine HCl 20 mg tablet 60 mg PO HS hydroxyzine HCl 10 mg tablet 10 mg PO BIDP PRN (Reason: Anxiety) insulin asp prt-insulin aspart [Novolog Mix 70-30 U-100 Insuln] 100 unit/mL (70-30) solution 12 unit SQ DAILY quetiapine 50 mg tablet 50 mg PO HS Soliqua 100/33 100 unit-33 mcg/mL insulin pen 32 unit SQ DAILY Problem Reconciliation Problems Reviewed?: Yes Patient Discharge Instructions ACTIVITY: Continue current activity DIET: continue same diet and advance to your usual diet Patient Instructions: DI for Dehydration -- Adult, DI for Pressure Injuries, DI for Hypokalemia, DI for Colitis, DI for Hypomagnesemia, Stop Light Heart Failure Print Language: Malay Providers Primary Care Provider: Kb Hernández Admit Provider: Casa Ibanez Attending Provider: Casa Ibanez
--- NOTE | 2024-11-17 08:31 | PC.NURSE ---
Prelim blood culture results forwarded to the hospitalist as she was admitted.
--- NOTE | 2024-11-19 09:56 | SW/DCPLANNER ---
Spoke with patient's on the phone. Patient's stated that his is doing well. Patient's stated that he is aware of her upcoming appointments. Patient's stated that he she was not prescribed any new medicine. Patient's stated that he has no concerns or questions at this time. Danis GONZALES [employer]
== END 2024-11-16 11:35 | disposition home or self-care (01) | DRG 640 ==
LOC: ER 12:47 → 2ND 13:06
PROVIDERS: Admitting Provider Student in an Organized Health Care Education/Training Program; Emergency Provider Student in an Organized Health Care Education/Training Program; PCP Internal Medicine; Visit Provider Student in an Organized Health Care Education/Training Program
DX: E86.0 Dehydration (principal); E43 Unspecified severe protein-calorie malnutrition; G82.50 Quadriplegia, unspecified; L89.213 Pressure ulcer of right hip, stage 3; I31.39 Other pericardial effusion (noninflammatory); R78.81 Bacteremia; I5A Non-ischemic myocardial injury (non-traumatic); E87.6 Hypokalemia; L89.151 Pressure ulcer of sacral region, stage 1; E83.42 Hypomagnesemia; K52.9 Noninfective gastroenteritis and colitis, unspecified; I69.365 Other paralytic syndrome following cerebral infarction, bilateral; E87.20 Acidosis, unspecified; F41.9 Anxiety disorder, unspecified; E11.40 Type 2 diabetes mellitus with diabetic neuropathy, unspecified; G89.4 Chronic pain syndrome; E11.51 Type 2 diabetes mellitus with diabetic peripheral angiopathy without gangrene; J44.9 Chronic obstructive pulmonary disease, unspecified; I11.0 Hypertensive heart disease with heart failure; I50.9 Heart failure, unspecified; I25.10 Atherosclerotic heart disease of native coronary artery without angina pectoris; I44.7 Left bundle-branch block, unspecified; F17.210 Nicotine dependence, cigarettes, uncomplicated; Z68.27 Body mass index [BMI] 27.0-27.9, adult; Z74.01 Bed confinement status; Z79.4 Long term (current) use of insulin; Z88.1 Allergy status to other antibiotic agents; Z88.5 Allergy status to narcotic agent; Z79.899 Other long term (current) drug therapy; Z71.6 Tobacco abuse counseling
CPT/HCPCS: 0223U; 36415; 51798; 70450; 70496; 70498; 71275; 74177; 80053; 80307; 81001; 82009; 82803; 82962; 83036; 83605; 83690; 83735; 83880; 84100; 84145; 84443; 84484; 85025; 86140; 87040; 87077; 87154; 87186; 93005; 93308; 97162; 97167; 99285; J0360; J1650; J2405; J2543; J3475; J3480; J7030; J7120; Q9967

== ENCOUNTER 2024-11-22 12:23 | Outpatient (CLI) | payer MEDICARE, SELFPAY ==
--- OUTSIDE RECORDS SUMMARY | 2024-11-22 12:26 | XMS_ITS | Data Portability ---
Author Organization [facility] YOU Desai ROCKY MOUNT CLOSED Address [address] [place] [address] Assessment No assessment recorded. Plan of Treatment Reminders Order Date Submit Date Provider Last Modified By Organization Details Last Modified Time Details Appointments None recorded. Lab CBC w/ auto diff 2020 021 [facility], [address] [place] [address], [id number], 12:50:11 creatinine , serum or plasma 2020 021 [facility], [address] [place] [address], [id number], 1 12:50:12 ALT (alanine aminotrans ferase), serum or plasma 2020 021 [facility], [address] [place] [address], [id number], 12:50:12 ESR (erythrocy te sedimentat ion rate), blood 2020 021 [facility], [address] [place] [address], [id number], 1 12:50:12 AST/SGOT (aspartate aminotrans ferase), serum or plasma 2020 021 [facility], [address] [place] [address], [id number], 1 12:50:12 bun (blood urea nitrogen), serum or plasma 2020 021 [facility], [address] [place] [address], [id number], 1 12:50:12 Mycobacter ium tuberculos is stimulated gamma interferon , qual, blood 2020 021 [facility], [address] [place] [address], [id number], 1 12:50:12 CBC w/ auto diff 2018 019 [facility], [address] [place] [address], [id number], 9 15:40:25 ESR (erythrocy te sedimentat ion rate), blood 2018 019 [facility], [address] [place] [address], [id number], 9 17:10:01 ALT (alanine aminotrans ferase), serum or plasma 2018 019 [facility], [address] [place] [address], [id number], 9 16:28:09 AST/SGOT (aspartate aminotrans ferase), serum or plasma 2018 019 [facility], [address] [place] [address], [id number], 9 16:28:08 creatinine , serum or plasma 2018 019 [facility], [address] [place] [address], [id number], 9 16:28:11 Referral None recorded. Procedures None recorded. Surgeries None recorded. Imaging None recorded. Medication Orders prednisone 5 mg tablet 2020 [facility] 510, [address], [address], 15:12:29 baclofen 10 mg tablet 2020 [facility], [address] [facility], [place], [address], 16:07:52 prednisone 5 mg tablet 2020 [facility], [address] [facility], [place], [address], 16:07:52 Medrol (Patricio) 4 mg tablets in a dose pack 2020 [facility] 591, [address] [place], [address], 16:18:27 baclofen 20 mg tablet 2020 021 [facility] 591, [address] [place], [address], 15:10:02 prednisone 2.[address] [facility], [address] [facility], [place], [address], 16:15:44 leflunomid e [address] [facility], [address] [facility], [place], [address], 16:15:37 Depo-Medro l 80 mg/mL suspension for injection 2018 019 [facility] Not available 15:11:13 Enbrel SureClick 50 mg/mL (1 mL) subcutaneo us pen injector 2018 019 smober[facility]), [address] [address], [place], [address], 1 16:14:58 gabapentin 800 mg tablet [address] [facility], [address] , [place], [address], 1 16:15:32 Mobic 15 mg tablet 2018 019 [facility], [address] [facility] , [place], [address], 9 14:18:47 leflunomid e 10 mg tablet 2018 019 [id number], [address], [id number], 16:15:37 Patient TargetsNo targets recorded. Patient Instructions Encounter Date Encounter Id Patient Instructions Last Modified By Organization Details Last Modified Time 09/08/2018 [id number] eating healthy foods: care instructions [facility] Not available 09/08/2018 14:18:46 Reason for Referral None Reported. Results Created Date Observation Date Name Description Value Unit Range Abnormal Flag Note LastModifiedBy Organization Detail LastModifiedTime 09/09/1909/08/2018 CBC w/ auto diff white blood cells 11.0 K/uL 3.8-10 .8 high Not Available [facility] [place], [address], 09/08/2018 15:40:25 09/09/1909/08/2018 CBC w/ auto diff red blood cells 3.71 M/uL 3.80-5 .20 low Not Available [facility] [address] [place], [address], 09/08/2018 15:40:25 09/09/1909/08/2018 CBC w/ auto diff hemoglobin 11.6 g/dL 12.0-1 6.0 low Not Available [facility] [place], [address], 09/08/2018 15:40:25 09/09/19 19 09/08/2018 CBC w/ auto diff hematocrit 35.7 % 35.0-4 7.0 normal Not Available [facility] [address] [place] [address], [address], 09/08/2018 15:40:25 09/09/1909/08/2018 CBC w/ auto diff MCV 96 fL 80-100 normal Not Available [facility] [address] [place] [address], [address], 09/08/2018 15:40:25 09/09/1909/08/2018 CBC w/ auto diff MCH 31 pg 26-35 normal Not Available [facility] [address] [place] [address], [address], 09/08/2018 15:40:25 09/09/1909/08/2018 CBC w/ auto diff MCHC 32 g/dL 32-36 normal Not Available [facility] [address] [place] [address], [address], 09/08/2018 15:40:25 09/09/1909/08/2018 CBC w/ auto diff RDW 15.1 % 11.0-1 5.0 high Not Available [facility] [address] [place] [address], [address], 09/08/2018 15:40:25 09/09/1909/08/2018 CBC w/ auto diff MPV 7.8 fL 6.2-10 .5 normal Not Available [facility] [address] [place] [address], [address], 09/08/2018 15:40:25 09/09/1909/08/2018 CBC w/ auto diff platelet count 321 K/uL 130-40 0 normal Not Available [facility] [address] [place] [address], [address], 09/08/2018 15:40:25 09/09/1909/08/2018 CBC w/ auto diff neutrophil,a bsolute 8.2 K/uL 1.6-8. 4 normal Not Available [facility] [address] [place] [address], [address], 09/08/2018 15:40:25 09/09/1909/08/2018 CBC w/ auto diff lymphocyte,a bsolute 1.7 K/uL 0.4-5. 1 normal Not Available [facility] [address] [place] [address], [address], 09/08/2018 15:40:25 09/09/1909/08/2018 CBC w/ auto diff monocyte,abs olute 0.8 K/uL 0.0-1. 2 normal Not Available [facility] [address] [place] [address], [address], 09/08/2018 15:40:25 09/09/1909/08/2018 CBC w/ auto diff eosinophil,a bsolute 0.1 K/uL 0.0-0. 8 normal Not Available [facility] [address] [place] [address], [address], 09/08/2018 15:40:25 09/09/1909/08/2018 CBC w/ auto diff basophil,abs olute 0.1 K/uL 0.0-0. 3 normal Not Available [facility] [address] [place] [address], [address], 09/08/2018 15:40:25 09/09/1909/08/2018 CBC w/ auto diff % neutrophils 74.9 % 42.0-7 8.0 normal Not Available [facility] [address] [place] [address], [address], 09/08/2018 15:40:25 09/09/1909/08/2018 CBC w/ auto diff % lymphocytes 15.8 % 11.0-4 7.0 normal Not Available [facility] [address] [place] [address], [address], 09/08/2018 15:40:25 09/09/1909/08/2018 CBC w/ auto diff % monocytes 7.5 % 0.0-11 .0 normal Not Available [facility] [address] [place] [address], [address], 09/08/2018 15:40:25 09/09/1909/08/2018 CBC w/ auto diff % eosinophils 1.0 % 0.0-7. 0 normal Not Available [facility] [address] [place] [address], [address], 09/08/2018 15:40:25 09/09/1909/08/2018 CBC w/ auto diff % basophils 0.8 % 0.0-3. 0 normal Not Available [facility] [address] [place] [address], [address], 09/08/2018 15:40:25 09/09/19 19 09/08/2018 CBC w/ auto diff nucleated red cells 0.0 % 0.0-0. 9 normal Not Available [facility] [address] [place] [address], [address], 09/08/2018 15:40:25 09/09/1909/08/2018 CBC w/ auto diff nucleated RBCs, absolute 0.00 K/uL not estab. normal Not Available [facility] [address] [place] [address], [address], 09/08/2018 15:40:25 09/09/1909/08/2018 AST/S GOT (aspa rtate amino trans feras e), serum or plasm a AST 8 U/L 0-32 normal Not Available [facility] [address] [place] [address], [address], 09/08/2018 16:28:08 09/09/1909/08/2018 ALT (clara ine amino trans feras e), serum or plasm a ALT <5 U/L 0-33 normal Not Available [facility] [address] [place] [address] [place], [address], 09/08/2018 16:28:09 09/09/19 19 09/08/2018 creat inine , serum or plasm a creatinine 1.37 mg/dL 0.50-0 .95 high Not Available [facility] [address] [place], [address], 09/08/2018 16:28:10 09/09/19 19 09/08/2018 ESR (eryt hrocy te sedim entat ion rate) , blood ESR, automated 56 mm/HR 0-29 high Not Available [facility] [address] [place], [address], 09/08/2018 17:10:01 Result Notes None recorded. Problems Name Problem SNOMED Code Status Onset Date Resolution Date Notes Provider Name and Address Organization Details Recorded Time Seroposit roberto rheumatoi d arthritis 652181338 Active 2015 From Automated Load;Provi adeline: Fredy Ron atus: Active Not Available [facility] 6 01:27:46 Sciatica 56249661 Active 2015 From Automated Load;Provi adeline: Karlie Ron; atus: Active Not Available [facility] 6 01:27:46 Fibromyal akshat 168872904 Active 2015 From Automated Load;Provi adeline: Samuel Polo;Sta tus: Active Not Available [facility] 6 01:27:46 Chronic pain syndrome 809074842 Active 2015 From Automated Load;Provi adeline: Samuel Polo;Sta tus: Active Not Available [facility] 6 01:27:46 Problem Notes None recorded. Procedures Surgical History Date Name Laterality Status Provider Name and Address Organization Details Recorded Time 9 Injection Joint/Bursa, Major, w/o US completed KARLIE RON APRN [address] [place], [address], [facility] 09/17/2018 23:22:11 8 Injection Joint/Bursa, Major, w/o US completed KARLIE RON, FORM WORKER [address] [place], [address], [facility] 06/20/2017 13:07:44 7 Injection Joint/Bursa, Major, w/o US completed KARLIE RON, FORM WORKER [address] [place], [address], [facility] 10/19/2016 16:32:12 7 Injection Joint/Bursa, Major, w/o US completed KARLIE RON, FORM WORKER [address] [place], [address], [facility] 04/12/2016 20:55:49 Joint Replacement completed [facility] 10/19/2016 15:41:07 Orthopedic Surgery completed [facility] 10/19/2016 15:41:23 Eye Surgery completed [facility] 10/19/2016 15:41:36 Other completed [facility] 15:41:48 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 Procedure Notes None recorded. Medical Equipment None Reported. Allergies Allergen ID Allergen Name Allergen Category Reaction Reaction Severity Criticality Documentation Date Start Date Code Code System Note Provider Name and Address Organization Details Recorded Time 242181 codeine medicatio n Not available Not available Not available 01/15/20162014 2670 RxNorm Comme nt: Creat ed By: Nelli Tapia gerber Date: 2014 10:18 :57 AM; Not Available [facility] 6 10:30:34 [id number] Keflex medicatio n Not available Not available Not available 01/15/20162014 32842 7 RxNorm Comme nt: Creat ed By: Nelli Tapia gerber Date: 2014 10:18 :49 AM; Not Available [facility] 6 10:48:33 Medications Name Sig Start Date Stop Date Status Note LastModified by Organization Details LastModified Time cyclobenz aprine 10 mg tablet Three times a day 09/14 completed Duration : 30 days;Ins truction s: take 1/2 to 1 tab 1-2 hrs before bedtime ;Frequen cy: tid;Alt Frequenc y: daily;Me dication Descript ion: cycloben zaprine; Dosage:1 ; Route:or al; refills: 3; Quantity :30 tablet Not Available Not Available Not Available Neurontin 300 mg capsule Three times a day 07/12 completed Duration : 30 days;Parth quency: tid;Alt Frequenc y: as direct.; Medicati on Descript ion: gabapent in; Dosage:1 ; Route:or al; refills: 3; Quantity :90 capsule Not Available Not Available Not Available Depo-Medr ol 40 mg/mL suspensio n for injection Take 120 mg by injectio n route. 09/25 completed [facility] [phone] 3- Not Available Not Available Not Available Glucophag e 500 mg tablet Two times a day active Duration : 30 days;Parth quency: bid;Medi cation Descript ion: metformi n; Dosage:2 ; Route:or al; refills: 0; Quantity :60 tablet Not Available Not Available Not Available ondansetr on HCl 8 mg tablet denied- ordering physicia n no longer with departme nt active Not Available Not Available No t Available lisinopri l 20 mg tablet Take 1 tablet every day by oral route. active Not Available Not Available No t Available Medrol (Patricio) 4 mg tablets in a dose pack Take 1 dose pk by oral route. 2020 active Not Available Not Available Not Avai lable Prilosec 40 mg capsule,d elayed release Daily 09/14 completed Duration : 30 days;Parth quency: daily;Me dication Descript ion: omeprazo le; Dosage:1 ; Route:or al; refills: 3; Quantity :30 delayed release capsule Not Available Not Available Not Available prednison e 5 mg tablet Take 1 tablet every day by oral route. 2020 active Not Available Not Available Not Avai lable leflunomi de 10 mg tablet Take 1 tablet every day by oral route for 90 days. 06/03 completed NO PA NEEDED Not Available Not Available Not Available Plavix 75 mg tablet Daily 06/03 completed Frequenc y: daily;Me dication Descript ion: clopidog rel; Dosage:1 ; Route:or al; refills: 5; Quantity :30 tablet Not Available Not Available Not Available Paxil 40 mg tablet Daily active Frequenc y: daily;Me dication Descript ion: paroxeti ne; Dosage:1 ; Route:or al; refills: 5; Quantity :30 tablet Not Available Not Available Not Available Depo-Medr ol 80 mg/mL suspensio n for injection Take 80 mg by injectio n route. 09/25 completed Not Available Not Available Not Available baclofen 20 mg tablet Take 1 tablet 4 times a day by oral route for 7 days. 09/25 completed Not Available Not Available Not Available Amaryl 4 mg tablet Two times a day active Duration : 30 days;Parth quency: bid;Medi cation Descript ion: glimepir caitlyn; Dosage:1 ; Route:or al; refills: 0; Quantity :30 tablet Not Available Not Available Not Available Mobic 15 mg tablet take one po Daily 2018 active Frequenc y: daily;Me dication Descript ion: meloxica m; Dosage:1 ; Route:or al; refills: 3 Not Available Not Available Not Available Zofran 4 mg tablet Take one or two tablets as needed for nausea 2017 active Not Available Not Available Not Avai lable Percocet 10 mg-325 mg tablet Take 1 tablet every 6 hours by oral route. active Not Available Not Available No t Available methotrex ate sodium 2.5 mg tablet take 8 tablets once a week 06/03 completed Duration : 30 days;Ins truction s: TAKE 8 TABLETS BY MOUTH ONCE A WEEK;Parth quency: as direct.; Medicati on Descript ion: methotre xate; Dosage:a s directed ; Route:or al; refills: 1; Quantity :32 tablet Not Available Not Available Not Available gabapenti n 800 mg tablet Take 1 tablet 3 times a day by oral route. 06/03 completed Not Available Not Available Not Available baclofen 10 mg tablet Take 1 tablet twice a day by oral route. 2020 active Not Available Not Available Not Avai lable prednison e 2.5 mg tablet Take 1 tablet every day by oral route for 90 days. 06/03 completed Not Available Not Available Not Available cyanocoba renetta (vit B-12) 1,000 mcg/mL injection solution Once monthly active Frequenc y: 1x /month;M edicatio n Descript ion: cyanocob alamin; Route:in jectable ; refills: 0 Not Available Not Available Not Available ranitidin e 150 mg tablet Take 1 tablet twice a day by oral route. active Not Available Not Available No t Available folic acid 1 mg tablet take one po daily 06/03 completed Duration : 30 days;Parth quency: daily;Me dication Descript ion: folic acid; Dosage:1 ; Route:or al; refills: 3; Quantity :30 tablet Not Available Not Available Not Available Vitamin D2 1,250 mcg (50,000 unit) capsule TAKE ONE CAPSULE BY MOUTH ONCE A WEEK 2016 active Not Available Not Available Not Avai lable docusate sodium 250 mg capsule Two times a day active Frequenc y: bid;Medi cation Descript ion: docusate ; Route:or al; refills: 0 Not Available Not Available Not Available ondansetr on 4 mg disintegr ating tablet Take 2 tablets every 12 hours by oral route. 2016 active Not Available Not Available Not Avai lable Zocor 40 mg tablet Daily active Duration : 30 days;Parth quency: daily;Me dication Descript ion: simvasta tin; Dosage:1 ; Route:or al; refills: 5; Quantity :30 tablet Not Available Not Available Not Available atenolol 50 mg tablet Daily 09/14 completed Duration : 30 days;Parth quency: daily;Me dication Descript ion: atenolol ; Dosage:1 ; Route:or al; refills: 0; Quantity :30 tablet Not Available Not Available Not Available Xanax 1 mg tablet Three times a day active Frequenc y: tid;Alt Frequenc y: prn;Medi cation Descript ion: alprazol am; Dosage:1 ; Route:or al; refills: 0; Quantity :20 tablet Not Available Not Available Not Available Zaroxolyn 2.5 mg tablet Daily active Frequenc y: daily;Me dication Descript ion: metolazo ne; Route:or al; refills: 0; Quantity :30 tablet Not Available Not Available Not Available Klor-Con M20 mEq tablet,ex tended release Daily active Frequenc y: daily;Me dication Descript ion: potassiu m chloride ; Route:or al; refills: 0; Quantity :60 tablet, extended release Not Available Not Available Not Available Topamax 50 mg tablet Take 1 tablet twice a day by oral route. active Not Available Not Available No t Available Vitamin D Twice weekly 10/19 completed Instruct ions: Repeat Vitamin D levels in 3 months;F requency : 2x/ week;Med ication Descript ion: ergocalc iferol; Dosage:1 ; Route:or al; refills: 0 Not Available Not Available Not Available Enbrel SureClick 50 mg/mL (1 mL) subcutane ous pen injector 06/03 completed Not Available Not Available Not Available Vitals Date Recorded Body height Body temperature Provider N rosario and Address Organization Details Last Updated DateTime 03/25/2020 157.48 cm 98 [degF] CHAZ AVILES MD [address] [place], [address] [place] [address] 03/25/2020 11:19:05 Date Recorded Body height Provider Name an d Address Organization Details Last Updated DateTime 06/03/2020 157.48 cm Tabitha Oconnor [facility] 06/03/2020 15:20:20 Date Recorded Body height Body temperature Respiratory rate Heart rate Provider Name and Address Organization Details Last Updated DateTime 06/11/2019 157.48 cm 97 [degF] 16 /min 76 /min CHAZ AVILES MD [address] [place], [address] [place] [address] 06/11/2019 15:26:41 Date Recorded Body height Respiratory rate Heart rate Systolic And Diastolic Provider Name and Address Organization Details Last Updated DateTime 09/08/2018 157.48 cm 18 /min 62 /min 96/56 mm[Hg] Ajay Stanley [facility] 09/08/2018 13:56:22 Date Recorded Body height Provider Name an d Address Organization Details Last Updated DateTime 09/25/2020 157.48 cm Tabitha Tierneyvan [facility] 09/25/2020 14:57:24 Social History Question Answer Notes LastModified by Organizat ion Details LastModified Time Tobacco Smoking Status Former Smoker Angela Linares david [facility] 04/12/2016 16:14:45 What Was The Date Of Your Most Recent Tobacco Screening? 09/08/2018 Information n ot available 04/10/2019 Sex: Unknown Functional Status Question Answer Note LastModified by Organization D etails LastModified Time What is your level of alcohol consumption? None [email or web address] Information not available 10/19/2016 Mental Status None recorded. Family History Relationship Description Onset Age of this Age Resolved Age Notes LastModified by Organization Details LastModified Time Father No current problems or disability [email or web address] Not available 04/12 16:14:32 Mother No current problems or disability [email or web address] Not available 04/12 16:14:32 Mother Arthritis [email or web address] Not availa ble 10/19/2016 15:40:28 Brother Arthritis [email or web address] Not avail able 10/19/2016 15:40:33 Sister Arthritis [email or web address] Not availa ble 10/19/2016 15:40:37 Medical History Condition Response Diabetes Y Bleeding Disorder N Arthritis Y Emphysema N Acid Reflux (GERD) Y Heart Disease N Rheumatoid Arthritis Y Hypertension Y COPD N Asthma N Gynecological HistoryNo gynecological history recorded. Obstetrics History GPAL:G 0 P 0 0 0 0 Past Encounters Encounter ID Performer Location Encounter Start Date Encounter Closed Date Diagnosis/Indication Diagnosis SNOMED-CT Code Diagnosis ICD10 Code Diagnosis IMO Codes Diagnosis Note [id number] KARLIE RON APRN [facility] [address] [place] [address] 04/12/2016 15:26:55 04/12/2016 16:55:02 Seropositive rheumatoid arthritis 990818431 M05.9 chronic and recurring painsno synovitiss ystemic exam is normalcont inue on meds as prescribed below Sciatica 68023922 M54.32 worsening on right sidewill provide with IM injection today80 mg IM injection into right buttocks Fibromyalgia 302238703 M 79.7 stable with a normal systemic examinatio n Nausea and vomiting 1693 1999 R11.2 recurring and symptomati cwill initiate ondansetro n until f/u with pcp Greater tr ochanteric pain syndrome 3141056 M70.61 M70.62 tender to palpwill provide with bilateral greater trochanter ic bursa injections today and f/u in 3 months or sooner prnexacerb ated by chronic low back pain and metal implants [id number] KARLIE RON APRN [facility] [address] [place] [address] 07/12/2016 15:29:59 07/12/2016 16:24:38 Seropositive rheumatoid arthritis 838392780 M05.9 chronic and recurring painsno synovitiss ystemic exam is normalcont inue on meds as prescribed below alf methotrexate user [id number] 00 Z79.899 chronic and recurring with normal systemic examinatio nlabs and refills today Sciatica 24792367 M54.32 improved overall Chronic pain syndrome 37 5146033 G89.4 continue with pain management Fibromyalgia 475629409 M 79.7 stable with a normal systemic examinatio n [id number] KARLIE RON APRN [facility] [address] [place] [address] 10/19/2016 15:18:18 10/19/2016 16:45:54 alf methotrexate user [id number] 00 Z79.899 chronic and recurring with normal systemic examinatio nlabs and refills today Fibromyalgia 313854196 M 79.7 stable with a normal systemic examinatio n Sciatica 33714245 M54.32 improved overall; however flared today worse in the right legmay be overlap of the GT bursitis worseningw ill provide with injections today Seropositi ve rheumatoid arthritis 236425439 M05.9 chronic and recurring painsno synovitiss ystemic exam is normalcont inue on meds as prescribed below Bilateral trochanteric bursitis 7729454770 7715018 M70.61 M70.62 very tender with left >righttend er to palpfluid filled sacinjecti ons provided today [id number] DEEPAK BRISCOE APRN [facility] [address] [place] [address] 02/01/2017 15:35:21 02/22/2017 09:14:42 Seropositive rheumatoid arthritis 142162069 M05.9 Seropositi ve RAno synovitis. Maintain enbrel weekly.Kaylee scott mobjenni 15 mg daily.Phani mcrae arava 20 mg daily.Repo rts she has been off mtx since last visit. For now I will not restart.Di scussed with Yolanda that her BP and blood sugars are elevated due to prednisone dose and that she needs to call her PCP to follow up.We cant do hip bursa injections due to her being on prednisone already and Increased BP and blood sugar.Labs today.Rech lacho 3 months, sooner if needed. 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 Fibromyalgia [id number] M 79.7 Fibromyalg iaChronic with diffuse tenderness .Followed by pain management who refills her gabapentin . Sciatica 15820268 M54.32 Sciatica has been better.For now will montior. Nausea [id number] R11.0 c/o of nausea secondary to fibromyalg ia/medsWil l send in zofran sendyay to take 1 tablet BID as needed. 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 [id number] Z79.899 chronic and recurring with normal systemic examinatio nlabs and refills today Fibromyalgia 830036720 M 79.7 stable with a normal systemic examinatio n Sciatica 27084291 M54.32 improved overall; however flared today worse in the right legmay be overlap of the GT bursitis worseningw ill provide with injections today Bilateral trochanteric bursitis [id number] 9434630 M70.61 M70.62 very tender with left >righttend er to palpfluid filled sacinjecti ons provided today [id number] KARLIE RON APRN R[facility] [address] [place] [address] 09/14/2017 15:22:40 09/14/2017 16:47:40 Seropositive rheumatoid arthritis 110365120 M05.9 chronic and recurring painsno synovitiss ystemic exam is stablemell has been on antibiotic s for bronchitis she had a fall at home and has been hurting more, but xrays were done and were stableshe will continue on meds as prescribed belowshe needs refills gabapentin and mtxshe has some palpable Rheumatoid nodules in the right lower extremitya nd would benefit from an injection of steroids today to see if it helps the right leg alf methotrexate user [id number] 00 Z79.899 chronic and recurring with normal systemic examinatio nlabs and refills today Fibromyalgia 000335670 M 79.7 stable with a normal systemic examinatio n Sciatica 07056160 M54.32 improved overall; however flared today worse in the right legmay be overlap of the GT bursitis worsenings table today Bilateral trochanteric bursitis [id number] 5347848 M70.61 M70.62 very tender with left >righttend er to palpbut without fluid filled sacs today [id number] KARLIE RON APRN R[facility]UMATOL [facility] [address] [place] [address] 12/12/2017 15:32:21 12/12/2017 16:55:32 Seropositive rheumatoid arthritis 857046389 M05.9 chronic and recurring painsno synovitiss ystemic exam is stablemell has been on antibiotic s for bronchitis she had a fall at home and has been hurting more, but xrays were done and were stableshe will continue on meds as prescribed belowshe needs refills gabapentin and mtxshe has some palpable Rheumatoid nodules in the right lower extremitya nd would benefit from an injection of steroids today to see if it helps the right leg as it has 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 [id number] 00 Z79.899 chronic and recurring with normal systemic examinatio nlabs and refills today Sciatica 46167789 M54.32 improved overall; however flared today worse in the right legmay be overlap of the GT bursitis worsenings table todaywill provide with 120 mg Im injection today Bilateral trochanteric bursitis 2075813426 9454221 M70.61 M70.62 very tender with right > lefttender to palpbut without fluid filled sacs today [id number] KARLIE RON APRN R[facility] [address] [place] [address] 03/09/2018 15:26:12 03/15/2018 10:25:57 Seropositive rheumatoid arthritis 117587969 M05.9 chronic and recurring painsno synovitiss ystemic exam is stablemell has been on antibiotic s for bronchitis she had a fall at home and has been hurting more, but xrays were done and were stableshmariana will continue on meds as prescribed belowshe needs refills gabapentin and mtxshe has some palpable Rheumatoid nodules in the right lower extremitya nd would benefit from an injection of steroids today to see if it helps the right leg as it has in the past from increased sciatica alf methotrexate user [id number] 00 Z79.899 chronic and recurring with normal systemic examinatio nlabs and refills today Sciatica 88299345 M54.32 improved overall; however flared today worse in the right legmay be overlap of the GT bursitis worsenings table todaywill provide with 120 mg Im injection today Bilateral trochanteric bursitis [id number] M70.61 M70.62 very tender with right > lefttender to palpbut without fluid filled sacs today [id number] KARLIE RON APRN R[facility] [address] [place] [address] 09/08/2018 13:32:34 09/08/2018 14:38:16 Seropositive rheumatoid arthritis 532621293 M05.9 chronic and recurring painsno synovitiss ystemic exam is stablemell has been on antibiotic s for bronchitis she had a fall at home and has been hurting more, but xrays were done and were stablemell will continue on meds as prescribed belowshe needs refills gabapentin and mtxshe has some palpable Rheumatoid nodules in the right lower extremitya nd would benefit from an injection of steroids today to see if it helps the right leg as it has in the past from increased sciatica 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 Last visit August 2018 by Karlie Ron. Since last visit, she had CVA with right-side d hemiparesi s. Further she has diabetes, chronic kidney disease as well as peripheral neuropathy . She is not a candidate for anti-TNF therapy, or multiple disease modifying drugs because of underlying immunocomp romise status and risk for infections . Further she has chronic kidney disease and would not be a good candidate for methotrexa te or NSAIDs. I agree to discontinu e both meloxicam as well as methotrexa te. I also agree to discontinu e Enbrel injections . At this point she can take Tylenol regular strength 2 tablets 3 times a day for pain management . Low-dose prednisone at 2.5 mg once a day would be effective as an anti-infla mmatory drug. OK to take leflunomid e 10 mg once a day. I would like to review her lab studies from Dr. Ta's office Must follow with us in 3 months. [id number] CHAZ AVILES MD [facility] [address] [address] 03/25/2020 08:09:21 03/25/2020 11:57:38 Seropositive rheumatoid arthritis 773252259 M05.9 69-year-ol d female with a very complex medical history. Last visit May 2019. Significan t cognitive issue as well as physical limitation s on account of CVA. Further has significan t comorbid conditions including diabetes, chronic kidney disease, hypertensi on and hyperlipid emia. She is followed by local physicians . I do not have any recent lab studies for my review. I'm reluctant to prescribe steroids as well as immunosupp ressive medication s in the absence of lab studies along with her underlying comorbid conditions . I suggested her to obtain the labs locally in [place] with results faxed to our office for our review. Based on the studies we can decide if she needs to go back on the leflunomid e or low-dose prednisone . once on the medication s, she has to be followed regularly, every 3 months. Long-term drug therapy [id number] Z79.899 obtain labs to assess the current use of medication s including leflunomid e and steroids. She will do the labs locally. [id number] KARLIE RON APRN [facility] [address] [place] [address] 06/03/2020 15:20:07 06/03/2020 16:38:19 Seropositive rheumatoid arthritis 585937927 M05.9 69-year-ol d female with a very complex medical history. Significan t cognitive issue as well as physical limitation s on account of CVA. Further has significan t co-morbid conditions including diabetes, chronic kidney disease, hypertensi on and hyperlipid emia. She is followed by local physicians . I do not have any recent lab studies for my review. I'm reluctant to prescribe steroids as well as immunosupp ressive medication s in the absence of lab studies along with her underlying co-morbid conditions . I suggested her to obtain the labs locally in [place] with results faxed to our office for our review. Based on the studies we can decide if she needs to go back on the leflunomid e or low-dose prednisone . with labs indicated chronic kidney disease in addition with the current worsening issues it would be beneficial for her to be on baclofen and prednisone Long-term drug therapy 148567317 Z79.899 obtain labs to assess the current use of medication s including leflunomid e and steroids. She will do the labs locally. Strain of neck muscle 36 [id number] S16.1XXA [id number] KARLIE RON APRN [facility] [address] [place] [address] 09/25/2020 14:56:21 09/26/2020 08:27:33 Seropositive rheumatoid arthritis 397543858 M05.9 69-year-ol d female with a very complex medical history. Significan t cognitive issue as well as physical limitation s on account of CVA. Further has significan t co-morbid conditions including diabetes, chronic kidney disease, hypertensi on and hyperlipid emia. She is followed by local physicians , Dr. Loyola who provides her with her gabapentin . I do not have any recent lab studies for my review. I'm reluctant to prescribe steroids as well as immunosupp ressive medication s in the absence of lab studies along with her underlying co-morbid conditions . I suggested her to obtain the labs locally in [place] with results faxed to our office for our review. Based on the studies she will remain on low-dose prednisone 5mg daily with labs indicated chronic kidney disease in addition with the current worsening issues it would be beneficial for her to be on baclofen and prednisone , so she will discuss with her pcp and see if they will fill both as she is bedridden now.phone call lasted 11 minutes Long-term drug therapy [id number] Z24.856 obtain labs to assess the current use of medication s including leflunomid e and steroids. She will do the labs locally. Health Concerns Section Related Observation LastModified by Organization Detai ls LastModified Time None Recorded Concern Status LastModified by Organization Details LastModified Time None Recorded Advance Directives Directive None Recorded Payers Insurance Date Sequence Insurance Name Policy Number Policy Ivey Covered Member ID Ivey Member ID Guarantor Name 10/08/2020 2 [employer] (MEDICARE SUPPLEMENT) Yolanda Agosto [id number] Yolanda Agosto 10/08/2020 1 [place] Yolanda Agosto [id number] Yolanda Agosto 10/08/2020 1 [employer] (MEDICARE REPLACEMENT/ ADVANTAGE - PPO) [id number] Yolanda Agosto [id number] Yolanda Agosto Notes Date Note Type Note Provider Name and Address Organization Details Recorded Time 09/08/2018 text/html ROS as noted in the HPI f/u on RA; she reports she continues with bilateral hip pains with h/o bursitis; she continues on medication for RA along with OA; significant history without major flare of RA in the interim; no s/e from mtx or enbrel; continues to be improved overall since starting with new pain management and receiving injections; history of multiple back surgeries with screws and plates throughout the spine; she reports her right leg is hurting; she has a bladder infection today and is on antibiotics; she feels like the bone is coming out--she will follow up with [facility] neurosurgery/spine center when she schedules an appointment; she used to see Dr. Donaldson and after he has left, she will call for the referral; she currently denies bowel or bladder changes, cp, soa, rash or fever and all others negative KARLIE RON, JONNY [address] [place], [address], [facility] 09/17/2018 23:23:58 06/11/2019 text/html ROS as noted in the HPI today on telephone- last visit, was in 08/2018. since last visit she had a CVA and has right sided hemiparesis, fully dependent on her aide. for this she has history of diabetes, poorly controlled along with chronic kidney disease. She was on Enbrel injections, methotrexate, leflunomide and meloxicam which were all stopped last year. Currently she is complaining of pain and stiffness. History is obtained only from the patient also in consultation with her daughter. CHAZ AVILES MD [address] [place], [address], [facility] 06/11/2019 16:15:46 03/25/2020 text/html ROS as noted in the HPI Visit today is being conducted via telephone/audio only. The patient confirms that he/she is physically located in [place] at the time of this visit. Patient has expressed an understanding of this phone call as a visit and has consented. follow-up on rheumatoid arthritis. since last visit, May 2019 she continued to have functional and cognitive decline on account of a CVA and associated right sided hemiparesis, fully dependent on her aide. for rheumatoid arthritis, she was on leflunomide 10 mg a day and low-dose prednisone. However she has not had any lab studies done Since August 2018. She does have significant comorbid conditions including diabetes, poorly controlled along with chronic kidney disease. She has used Enbrel injections, methotrexate, leflunomide and meloxicam in the past. History is obtained only from the patient, who is a poor historian CHAZ ARACELI ABBAS, MD [address] [place], [address], [facility] 03/25/2020 11:42:51 09/25/2020 text/html ROS as noted in the HPI Visit today is being conducted via telephone/audio only. The patient confirms that he/she is physically located in [place] at the time of this visit. Patient has expressed an understanding of this phone call as a visit and has consented. follow-up on rheumatoid arthritis. since last visit, May 2019 she continued to have functional and cognitive decline on account of a CVA and associated right sided hemiparesis, fully dependent on her aide. for rheumatoid arthritis, she was on leflunomide 10 mg a day and low-dose prednisone. However she has not had any lab studies done Since August 2018. She does have significant comorbid conditions including diabetes, poorly controlled along with chronic kidney disease. She has used Enbrel injections, methotrexate, leflunomide and meloxicam in the past. History is obtained only from the patient, who is a poor historian KARLIE RON APRN [address] [place], [address], [facility] 09/25/2020 15:21:28 OBGyn Episode No OBEpisode recorded.
[2024-11-22 12:43] LABS: Hematocrit 40.8 % (37.0-47.0); Hemoglobin 13.3 g/dL (12.2-16.2); Immature Granulocytes % 0.6 %; Mean Corpuscular HGB Conc 32.6 g/dL (31.8-35.4); Mean Corpuscular Hemoglobin 33.6 pg (27.0-31.2); Mean Corpuscular Volume 103.0 fl (81-99); Nucleated Red Blood Cells % 0 %; Platelet Count 402 K/mm3 (142-424); Red Blood Count 3.96 M/mm3 (4.20-5.40); Red Cell Distribution Width-SD 54.0 fL; White Blood Count 11.7 K/mm3 (4.8-10.8)
[2024-11-22 13:48] LABS: Anion Gap 11.7 mEq/L (5-15); Blood Urea Nitrogen 21 mg/dl (7-17); Calcium 8.9 mg/dl (8.4-10.2); Carbon Dioxide 30 mmol/L (22.0-30.0); Chloride 100 mmol/L (98-107); Creatinine,Serum 0.80 mg/dl (0.52-1.04); Estimated Glomerular Filt Rate 70 ml/min (>60); GFR (African American) 85 ML/MIN (>60); Glucose 239 mg/dl (74-100); Magnesium 1.6 mg/dl (1.6-2.3); Potassium 4.7 mmoL/L (3.5-5.1); Sodium 137 mmol/L (136-145)
== END 2024-11-22 23:59 | disposition home or self-care (01) ==
LOC: LAB 12:23
PROVIDERS: PCP Internal Medicine; Visit Provider Nurse Practitioner
DX: I10 Essential (primary) hypertension (principal)
CPT/HCPCS: 36415; 80048; 83735; 85025

== ENCOUNTER 2024-12-28 16:14 | Observation (INO) | payer MEDICARE, SELFPAY ==
--- OUTSIDE RECORDS SUMMARY | 2024-12-14 07:30 | XMS_ITS | Encounter Summary ---
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 Name Role Phone Kb Hernández Primary Care Provider + Encounter Details Date Type Department Care Team (Late st Contact Info) Description 12/14/2024 8:30 AM EDT Pre-Admission Testing [facility] [address] [place] [address] Social History Tobacco Use Types Packs/Day Years Used Date Smoking Tobacco: Every Day Cigarettes Tobacco Cessation:Ready to Q uit: Not Asked; Counseling Given: Not Answered Alcohol Use Standard Drinks/Week Comments No 0 (1 standard drink = 0.6 oz pur e alcohol) Abuse Screen Answer Date Recorded Feels Unsafe at Home or Work/School no 12/14/2024 Feels Threatened by Someone no 11/22 Does Anyone Try to Keep You From Having Contact with Others or Doing Things Outside Your Home? no 12/14/2024 Physical Signs of Abuse Present no 12/14/2024 Education Answer Date Recorded Help with school or training? Not on file Preferred Language Kyrgyz 12/14/2024 Comments No Sex and Gender Information Value Date Recorded Sex Assigned at Not on file Legal Sex Female 11:22 AM EDT Gender Identity Not on file Sexual Orientation Not on file documented as of this encounter Last Filed Vital Signs Vital Sign Reading Time Taken Comments Blood Pressure - - Pulse - - Temperature - - Respiratory Rate - - Oxygen Saturation - - Inhaled Oxygen Concentration - - Weight 77.1 kg (170 lb) 12/14/2024 9:28 AM EDT Height 154.9 cm (5' 1 ) 12/14/2024 9:28 AM EDT Body Mass Index 32.12 12/14/2024 9:28 AM EDT documented in this encounter OR Notes * Maci Patino RN - 12/14/2024 8:30 AM EDT EKG from PAT today faxed to anesthesiology department for review and cardiac clearance. RN spoke with Dr Clark and reviewed pertinent medical history and EKG results. Per Dr Clark, patient is NOT cleared to proceed with procedure as planned. Patient needs cardiac clearance from Dr Temple before anesthesia will proceed. Dr Temple is outof the office today, but since patient was seen on 11/22/24, the law office receptionist at Dr Temple's office was going to check with another provider to see if that provider would clear the patient. Dr Temple stated on 11/22/24 that 'ischemia evaluation will delayed due to procedure on legs and will be discussed at the Dec follow up visit.' If cardiac clearance cannot be acquired before Tuesday, then surgery will need to be postponed. 1135-cleared by Dr Temple's office (Karen Abad APRN) as moderate operative risk (non modeifiable), no futher per operative work up needed Notified Hortensia at the office that cardiac clearance was received * CATIE - Katya Underwood RN - 12/14/2024 8:30 AM EDT An arrival time for procedure was not provided during PAT visit. If patient had any questions or concerns about their arrival time, they were instructed to contact their surgeon/physician. Additionally, if the patient referred to an arrival time that was acquired from their my chart account, patient was encouraged to verify that time with their surgeon/physician. Arrival times are NOT provided inPre Admission Testing Department. Patient viewed general PAT education video as instructed in their preoperative information receivedfrom their surgeon. Patient stated the general PAT education video was viewed in its entirety and survey completed. Copies of PAT general education handouts (Incentive Spirometry, Meds to Beds Program, Patient Belongings, Pre-op skin preparation instructions, Blood Glucose testing, Visitor policy, Surgery FAQ, Code H) distributed to patient if not printed. Education related to the PAT pass and skin preparation for surgery (if applicable) completed in PAT as a reinforcement to PAT education video. Patient instructed to return PAT pass provided today as well as completed skin preparation sheet ( if applicable) on the day of procedure. Additionally if patient had not viewed video yet but intended to view it at home or in our waiting area, then referred them to the handout with QR code/link provided during PAT visit. Encouraged patient/family to read [facility] general education handouts thoroughly and notify PAT staff with any questionsor concerns. Patient verbalized understanding of all information and priority content. Per Anesthesia Request, patient instructed not to take their DOMINGO/ARB medications on the AM of surgery. Patient to apply Chlorhexadine wipes to surgical area (as instructed) the night before procedure and the AM of procedure. Wipes provided. message left with hortensia suero regarding wound on right hip and cardiac clearance pending documented in this encounter Plan of Treatment Scheduled Orders Name Type Priority Associated Diagnoses Orde r Schedule ECG 12 Lead ECG Routine Expected: , Expires: 12/14/2025 documented as of this encounter Procedures Procedure Name Priority Date/Time Associated Diagnosis Comments PROTIME-INR Routine 12/14/2024 9:21 AM EDT CBC (NO DIFF) Routine 12/14/2024 9:21 AM EDT BASIC METABOLIC PANEL Routine 12/14/2024 9:21 AM EDT documented in this encounter Results * Basic Metabolic Panel (12/14/2024 9:21 AM EDT) [facility] Signature Glucose 94 65 - 99 mg/dL 12/14/2024 11:48 AM T [facility] BUN 10.4 8.0 - 23.0 mg/dL 12/14/2024 11:48 AM [facility] Creatinine 0.58 0.57 - 1.00 mg/dL 12/14/2024 11:48 AM [facility] Sodium 141 136 - 145 mmol/L 12/14/2024 11:48 AM T [facility] Potassium 4.1 3.5 - 5.2 mmol/L 12/14/2024 11:48 AM T [facility] Chloride 105 98 - 107 mmol/L 12/14/2024 11:48 AM [facility] CO2 22.6 22.0 - 29.0 mmol/L 12/14/2024 11:48 AM [facility] Calcium 9.3 8.6 - 10.5 mg/dL 12/14/2024 11:48 AM [facility] BUN/Creatinine Ratio 17.9 7.0 - 25.0 12/14/2024 11:48 AM [facility] Anion Gap 13.4 5.0 - 15.0 mmol/L 12/14/2024 11:48 AM [facility] eGFR 93.9 >60.0 mL/min/1.7 3 12/14/2024 11:48 AM [facility] Blood Venipuncture / Unknown 12/14/2024 9:21 AM EDT 12/14/2024 11:33 AM T [facility] - 12/14/2024 11:48 AM EDT GFR Categories in Chronic Kidney Disease (CKD) GFR Category GFR (mL/min/1.73) Interpretation G1 90 or greater Normal or high (1) G2 60-89 Mild decrease (1) G3a 45-59 Mild to moderate decrease G3b 30-44 Moderate to severe decrease G4 15-29 Severe decrease G5 14 or less Kidney failure (1)In the absence of evidence of kidney disease, neither GFR category G1 or G2 fulfill the criteria for CKD. eGFR calculation 2020 CKD-EPI creatinine equation, which does not include race as a factor us Aman Jimenez MD LAB BLOOD ORDERABLES Final Result Performing Organization Address City/[facility]/ZIP Co de Phone Number [facility]
[address] [place] [address], * Protime-INR (12/14/2024 9:21 AM EDT) Protime 13.3 12.2 - 15.3 Seconds 12/14/2024 11:18 AM EDT [facility] INR 0.96 0.89 - 1.12 12/14/2024 11:18 AM EDT [facility] Blood Venipuncture / Unknown 12/14/2024 9:21 AM EDT 12/14/2024 11:12 AM EDT Aman Jimenez MD LAB BLOOD ORDERABLES Final Result Performing Organization Address [facility] Co de Phone Number [facility]
[address] [place] [address], * (ABNORMAL) CBC (No Diff) (12/14/2024 9:21 AM EDT) WBC 10.97(H) 3.40 - 10.80 10*3/mm3 12/14/2024 11:27 AM EDT [facility] RBC 3.74(L) 3.77 - 5.28 10*6/mm3 12/14/2024 11:27 AM EDT [facility] Hemoglobin 12.3 12.0 - 15.9 g/dL 12/14/2024 11:27 AM EDT [facility] Hematocrit 39.5 34.0 - 46.6 % 12/14/2024 11:27 AM EDT [facility] MCV 105.6(H) 79.0 - 97.0 fL 12/14/2024 11:27 AM EDT [facility] MCH 32.9 26.6 - 33.0 pg 12/14/2024 11:27 AM EDT [facility] MCHC 31.1(L) 31.5 - 35.7 g/dL 12/14/2024 11:27 AM EDT [facility] RDW 14.8 12.3 - 15.4 % 12/14/2024 11:27 AM EDT [facility] RDW-SD 57.9(H) 37.0 - 54.0 fl 12/14/2024 11:27 AM EDT [facility] MPV 9.0 6.0 - 12.0 fL 12/14/2024 11:27 AM EDT [facility] Platelets 497(H) 140 - 450 10*3/mm3 12/14/2024 11:27 AM EDT [facility] Blood Venipuncture / Unknown 12/14/2024 9:21 AM EDT 12/14/2024 11:19 AM EDT us Aman Jimenez MD LAB BLOOD ORDERABLES Final Result [facility]
[address] [place] [address], documented in this encounter Visit Diagnoses Not on filedocumented in this encounter Care Teams Heavy Equipment Sales Manager Relationship Specialty Start Date End Date Kb Hernández DO [address] [facility] [place] [address] PCP - General Internal Medicine 04/09/23 documented as of this encounter
--- OUTSIDE RECORDS SUMMARY | 2024-12-17 05:14 | XMS_ITS | Encounter Summary ---
Author Organization [facility] Address [address] [place] [address] Care Team Providers Care Dice Maker Name Role Phone Kb Hernández Humble Primary Care Provider + Reason for Visit * Auth/Cert Specialty Diagnoses / Procedures Referred By Contac t Referred To Contact Procedures AORTOGRAM WITH RUNOFF AND POSSIBLE RIGHT INTERVENTION Referral ID Status Reason Start Date Expiration Date Visits Re quested Visits Authorized [id number] 1 1 Encounter Details Date Type Department Care Team (Latest Contact Info) Description 12/17/2024 6:14 AM EDT - 12/17/2024 1:00 PM EDT Hospital Encounter [facility] [address] [place] [address] Aman Jimenez MD [address] [place] [address] Discharge Disposition: Home or Self Care Social History Tobacco Use Types Packs/Day Years Used Date Smoking Tobacco: Every Day Cigarettes Tobacco Cessation:Ready to Q uit: Not Asked; Counseling Given: Not Answered Alcohol Use Standard Drinks/Week Comments No 0 (1 standard drink = 0.6 oz pur e alcohol) Abuse Screen Answer Date Recorded Feels Unsafe at Home or Work/School no 12/17/2024 Feels Threatened by Someone no 11/22 Does Anyone Try to Keep You From Having Contact with Others or Doing Things Outside Your Home? no 12/17/2024 Physical Signs of Abuse Present no 12/17/2024 Housing Stability Answer Date Recorded Current Living Arrangements home 11/22 Potentially Unsafe Housing Conditions Not on henrique e 12/17/2024 Disabilities Answer Date Recorded Difficulty Concentrating, Remembering or Making Decisions yes 12/17/2024 Difficulty Managing Errands Independently yes 12/17/2024 Education Answer Date Recorded Help with school or training? Not on file Preferred Language [place]ican 12/14/2024 Comments No Sex and Gender Information Value Date Recorded Sex Assigned at Not on file Legal Sex Female 11:22 AM EDT Gender Identity Not on file Sexual Orientation Not on file documented as of this encounter Last Filed Vital Signs Vital Sign Reading Time Taken Comments Blood Pressure 157/55 12/17/2024 12:30 PM EDT Pulse 76 12/17/2024 12:30 PM EDT Temperature 36.9 C (98.4 F) 12/17/2024 12:30 PM EDT Respiratory Rate 12 12/17/2024 12:30 PM EDT Oxygen Saturation 99% 12/17/2024 12:30 PM EDT Inhaled Oxygen Concentration - - Weight 77.1 kg (170 lb) 12/17/2024 7:28 AM EDT Height 154.9 cm (5' 1 ) 12/17/2024 7:28 AM EDT Body Mass Index 32.12 12/17/2024 7:28 AM EDT documented in this encounter Functional Status * Question Answer Date of Assessment Author 1. Wish to be (Past 1 Month) No 025 7:29 AM EDT Anh Baltazar, ROSA 2. Non-Specific Active Suici vinay Thoughts (Past 1 Month) No 12/17/2024 7:29 AM EDT Jeni Baltazar RN * Calculated C-SSRS Risk Score (Lifetime/Recent) Answer Date of Assessment Author No Risk Indicated 12/17/2024 7:29 AM EDT Anh Baltazar RN * [place] Suicide Severity Rating Scale (Screener/Recent Self-Report) Question Answer Date of Assessment Author 6. Suicidal Behavior (Lifetime) No 7:29 AM EDT Anh Baltazar, ROSA documented as of this encounter Discharge Instructions * Attachments The following attachments cannot be sent through Care Everywhere. * General Anesthesia Adult Care After ([place]ican) * Endovascular Therapy for Peripheral Vascular Disease: What to Know After ([place]ican) documented in this encounter Medications at Time of Discharge atorvastatin (LIPITOR) 40 MG tablet 12/13/2024 baclofen (LIORESAL) 10 MG tablet Take 1 tablet by mouth 3 (Three) Times a Day. carvedilol (COREG) 25 MG tablet Take 1 tablet by mouth Every 12 (Twelve) Hours. 60 tablet 05/07/2019 clopidogrel (PLAVIX) 75 MG tablet Take 1 tablet by mouth Daily. 30 tablet 05/05/2019 Cyanocobalamin (VITAMIN B-12 IJ) Inject as directed Every 30 (Thirty) Days. docusate sodium 250 MG capsule Two times a day gabapentin (NEURONTIN) 800 MG tablet hydrOXYzine (ATARAX) 10 MG tablet 11/10/2024 Insulin Glargine-Lixisen atide (SOLIQUA SC) Inject under the skin into the appropriate area as directed. insulin NPH (humuLIN N,novoLIN N) 100 UNIT/ML injection Inject 12 Units under the skin into the appropriate area as directed 2 (Two) Times a Day Before Meals. irbesartan (AVAPRO) 300 MG tablet Take 1 tablet by mouth Every Night. metFORMIN (GLUCOPHAGE) 500 MG tablet Take 2 tablets by mouth 2 (Two) Times a Day With Meals. 02/02/2014 Morphine (MS CONTIN) 15 MG 12 hr tablet 11/21/2024 oxyCODONE-acetam inophen (PERCOCET) 10-325 MG per tablet Take 1 tablet by mouth Every 6 (Six) Hours As Needed for Moderate Pain or Severe Pain. PARoxetine (PAXIL) 20 MG tablet Take 1 tablet by mouth Every Morning. Take with 40mg tablet for a total daily dose of 60mg prochlorperazine (COMPAZINE) 5 MG tablet 11/02/2024 QUEtiapine (SEROquel) 50 MG tablet 10/31/2024 topiramate (TOPAMAX) 50 MG tablet Take 1 tablet by mouth 2 (Two) Times a Day. trospium (SANCTURA) 20 MG tablet 08/21/2024 vitamin D (ERGOCALCIFEROL) 26093 UNITS capsule capsule Take 1 capsule by mouth 1 (One) Time Per Week. 2x a week alendronate (FOSAMAX) 70 MG tablet Take 1 tablet by mouth Every 7 (Seven) Days. On Mondays ALPRAZolam (XANAX) 1 MG tablet benzonatate (TESSALON) 100 MG capsule cyclobenzaprine (FLEXERIL) 10 MG tablet Take 1 tablet by mouth 3 (Three) Times a Day As Needed for Muscle Spasms. Diclofenac Sodium (VOLTAREN) 1 % gel gel Etanercept (Enbrel SureClick) 50 MG/ML solution auto-injector Enbrel SureClick 50 mg/mL (1 mL) subcutaneous pen injector inject one sc once weekly every week folic acid (FOLVITE) 1 MG tablet folic acid 1 mg tablet take one po daily glimepiride (AMARYL) 4 MG tablet Take 1 tablet by mouth 2 (Two) Times a Day. leflunomide (ARAVA) 10 MG tablet Take 1 tablet by mouth Daily. lisinopril (PRINIVIL,ZESTRI L) 20 MG tablet Take 1 tablet by mouth Daily. 30 tablet 05/07/2019 lisinopril (PRINIVIL,ZESTRI L) 20 MG tablet Take 1 tablet by mouth Daily. meclizine (ANTIVERT) 25 MG tablet Take by mouth As Needed. 02/18/2014 meloxicam (MOBIC) 15 MG tablet metOLazone (ZAROXOLYN) 2.5 MG tablet HOLD MEDICATION UNTIL PCP FOLLOW UP 05/01/2019 omeprazole (priLOSEC) 40 MG capsule ondansetron (ZOFRAN) 8 MG tablet denied- ordering physician no longer with department PARoxetine (PAXIL) 40 MG tablet Take 1 tablet by mouth Every Morning. Take with 20mg tablet for a total daily dose of 60mg potassium chloride (KLOR-CON) 20 MEQ CR tablet RESTART when METOLAZONE restarted 05/01/2019 simvastatin (ZOCOR) 40 MG tablet Take 1 tablet by mouth Every Night. 03/08/2014 sitaGLIPtin (JANUVIA) 100 MG tablet Take 1 tablet by mouth Daily. documented as of this encounter H&P Notes * Princess Guerrero APRN - 12/17/2024 7:10 AM EDT Pre-Op H&P Yolanda Schuster [id number] Chief complaint: Right leg pain Subjective: Patient is a 74 y.o.female presents for scheduled surgery by Dr. Jimenez. She anticipates a AORTOGRAMWITH RUNOFF AND POSSIBLE RIGHT INTERVENTION today. She has pain of bilateral lower extremities at rest, R> L. She had CT scan 04/09/2023 that showed aortoiliac calcifications. She has history of stenting 12/26/23. Review of Systems: Constitutional-- No fever, chills or sweats. No fatigue. CV-- No chest pain, palpitation or syncope. +HTN, HLD, CAD Resp-- No cough, hemoptysis. +SOB, COPD Skin--No rashes or lesions Allergies: Allergies Allergen Reactions Cefuroxime Rash Codeine Rash Tolerates Oxycodone and Morphine Home Meds: Medications Prior to Admission Medication Sig Dispense Refill Last Dose/Taking atorvastatin (LIPITOR) 40 MG tablet 12/16/2024 baclofen (LIORESAL) 10 MG tablet Take 1 tablet by mouth 3 (Three) Times a Day. 12/16/2024 at 8:00 AM carvedilol (COREG) 25 MG tablet Take 1 tablet by mouth Every 12 (Twelve) Hours. 60 tablet 0 12/16/2024 clopidogrel (PLAVIX) 75 MG tablet Take 1 tablet by mouth Daily. 30 tablet 12/16/2024 at 8:00 AM Cyanocobalamin (VITAMIN B-12 IJ) Inject as directed Every 30 (Thirty) Days. 12/16/2024 docusate sodium 250 MG capsule Two times a day 12/16/2024 gabapentin (NEURONTIN) 800 MG tablet 12/16/2024 hydrOXYzine (ATARAX) 10 MG tablet 12/16/2024 Insulin Glargine-Lixisenatide (SOLIQUA SC) Inject under the skin into the appropriate area as directed. 12/16/2024 insulin NPH (humuLIN N,novoLIN N) 100 UNIT/ML injection Inject 12 Units under the skin into the appropriate area as directed 2 (Two) Times a Day Before Meals. 12/16/2024 irbesartan (AVAPRO) 300 MG tablet Take 1 tablet by mouth Every Night. 12/16/2024 metFORMIN (GLUCOPHAGE) 500 MG tablet Take 2 tablets by mouth 2 (Two) Times a Day With Meals. 12/16/2024 Morphine (MS CONTIN) 15 MG 12 hr tablet 12/16/2024 oxyCODONE-acetaminophen (PERCOCET) 10-325 MG per tablet Take 1 tablet by mouth Every 6 (Six) Hours As Needed for Moderate Pain or Severe Pain. 12/16/2024 PARoxetine (PAXIL) 20 MG tablet Take 1 tablet by mouth Every Morning. Take with 40mg tablet for a total daily dose of 60mg 12/16/2024 prochlorperazine (COMPAZINE) 5 MG tablet 12/16/2024 QUEtiapine (SEROquel) 50 MG tablet 12/16/2024 topiramate (TOPAMAX) 50 MG tablet Take 1 tablet by mouth 2 (Two) Times a Day. 12/16/2024 trospium (SANCTURA) 20 MG tablet 12/16/2024 vitamin D (ERGOCALCIFEROL) 92076 UNITS capsule capsule Take 1 capsule by mouth 1 (One) Time Per Week. 2x a week Past Week alendronate (FOSAMAX) 70 MG tablet Take 1 tablet by mouth Every 7 (Seven) Days. On Mondays12/10/2024 ALPRAZolam (XANAX) 1 MG tablet benzonatate (TESSALON) 100 MG capsule cyclobenzaprine (FLEXERIL) 10 MG tablet Take 1 tablet by mouth 3 (Three) Times a Day As Needed for Muscle Spasms. Diclofenac Sodium (VOLTAREN) 1 % gel gel Etanercept (Enbrel SureClick) 50 MG/ML solution auto-injector Enbrel SureClick 50 mg/mL (1 mL) subcutaneous pen injector inject one sc once weekly every week folic acid (FOLVITE) 1 MG tablet folic acid 1 mg tablet take one po daily glimepiride (AMARYL) 4 MG tablet Take 1 tablet by mouth 2 (Two) Times a Day. leflunomide (ARAVA) 10 MG tablet Take 1 tablet by mouth Daily. lisinopril (PRINIVIL,ZESTRIL) 20 MG tablet Take 1 tablet by mouth Daily. 30 tablet 0 lisinopril (PRINIVIL,ZESTRIL) 20 MG tablet Take 1 tablet by mouth Daily. meclizine (ANTIVERT) 25 MG tablet Take by mouth As Needed. meloxicam (MOBIC) 15 MG tablet metOLazone (ZAROXOLYN) 2.5 MG tablet HOLD MEDICATION UNTIL PCP FOLLOW UP omeprazole (priLOSEC) 40 MG capsule ondansetron (ZOFRAN) 8 MG tablet denied- ordering physician no longer with department PARoxetine (PAXIL) 40 MG tablet Take 1 tablet by mouth Every Morning. Take with 20mg tablet for a total daily dose of 60mg potassium chloride (KLOR-CON) 20 MEQ CR tablet RESTART when METOLAZONE restarted simvastatin (ZOCOR) 40 MG tablet Take 1 tablet by mouth Every Night. sitaGLIPtin (JANUVIA) 100 MG tablet Take 1 tablet by mouth Daily. PMH: Past Medical History: Diagnosis Date Anemia Anxiety Arthritis Chronic back pain COPD (chronic obstructive pulmonary disease) Coronary artery disease Diabetes mellitus Glaucoma History of blood transfusion BLOOD TRANSFUSION S/P SURGERY; ~1995 AT [facility] (hard of hearing) Hyperlipidemia Hypertension Osteoporosis PVD (peripheral vascular disease) Stroke 2018 right sided weakness Urinary incontinence Wears dentures PSH: Past Surgical History: Procedure Laterality Date CAROTID ENDARTERECTOMY Left CHOLECYSTECTOMY COLONOSCOPY EYE SURGERY Bilateral cataracts HYSTERECTOMY KNEE ARTHROPLASTY Bilateral LUMBAR DISCECTOMY 05/2013 L5-S1 LUMBAR FUSION 1995 POSTERIOR LUMBAR/THORACIC SPINE FUSION 10/16/2013 T10-11, 11-12, L5-S1 ([place]) TOTAL HIP ARTHROPLASTY Left Social History: Tobacco: Social History Tobacco Use Smoking Status Every Day Current packs/day: 2.00 Types: Cigarettes Smokeless Tobacco Not on file Alcohol: Social History Substance and Sexual Activity Alcohol Use No Physical Exam: VS: BP 187/149 HR 76 RR 16 T 97.8 Sat 97%RA Ht 154.9 cm (61 ) Wt 77.1 kg (170 lb) BMI 32.12 kg/m?? General Appearance: Alert, cooperative, no distress, appears stated age Head: Normocephalic, without obvious abnormality, atraumatic Lungs: Clear to auscultation bilaterally, respirations unlabored Heart: Regular rate and rhythm, S1 and S2 normal Abdomen: Soft without tenderness Extremities: Extremities normal, atraumatic, no cyanosis or edema Skin: Skin color, texture, turgor normal, no rashes or lesions Neurologic: Grossly intact Results Review: LABS: Lab Results Component Value Date WBC 10.97 (H) 12/14/2024 HGB 12.3 12/14/2024 HCT 39.5 12/14/2024 MCV 105.6 (H) 12/14/2024 PLT 497 (H) 12/14/2024 NEUTROABS 8.07 (H) 04/09/2023 GLUCOSE 94 12/14/2024 BUN 10.4 12/14/2024 CREATININE 0.58 12/14/2024 EGFRIFNONA 55 (L) 05/02/2019 NA 141 12/14/2024 K 4.1 12/14/2024 CL 105 12/14/2024 CO2 22.6 12/14/2024 MG 2.2 05/02/2019 PHOS 2.4 04/08/2017 CALCIUM 9.3 12/14/2024 ALBUMIN 3.9 04/09/2023 AST 11 04/09/2023 ALT 9 04/09/2023 BILITOT 0.3 04/09/2023 RADIOLOGY: Imaging Results (Last 72 Hours) No results found for the last 72 hours. I reviewed the patient's new clinical results. Cancer Staging (if applicable) Cancer Patient: __ yes __no __unknown; If yes, clinical stage T:__ N:__M:__, stage group or __N/A Impression: Atherosclerosis of napaimute artery of right leg with pain Plan: AORTOGRAM WITH RUNOFF AND POSSIBLE RIGHT INTERVENTION Princess Guerrero APRN 12/17/2024 07:16 EDT Cosigned by Aman Jimenez MD at 12/17/2024 8:05 AM EDT Associated attestation - Aman Jimenez MD - 12/17/2024 8:05 AM EDT I have reviewed this documentation and agree. documented in this encounter Nursing Notes * Kevin Shaffer RN - 12/17/2024 10:59 AM EDT Caregiver Telephone Number Phone Number for Ride/Caregiver: SAMEER SCHUSTER (SPOUSE) [phone] Who will be staying with you post procedure for the next 24 hours? Name and Phone Number?: SAMEER SCHUSTER (SPOUSE) [phone] documented in this encounter OR Notes * Op Note - Aman Jimenez MD - 12/17/2024 7:45 AM EDT AORTOGRAM WITH OR WITHOUT RUNOFFS POSSIBLE STENT Procedure Report Patient Name: Yolanda Schuster Date of : 1950 Date of Surgery: 12/17/2024 Indications: 74 year old lady referred by Dr. Kb Hernández for 09/30 LEFT lower extremitypain. On medications, she rates her pain at 6-08/30. She previously underwent CT scan 04/09/23 which identified aortoiliac calcifications. She reports that Dr. Temple placed a lower extremity stent and also underwent RIGHT SFA/AKP stenting 12/26/23. Since her last visit, she has worsening RIGHT > LEFT pain which has progressed to rest pain since August. Pre-op Diagnosis: RIGHT leg rest pain Post-Op Diagnosis Codes: RIGHT leg rest pain RIGHT SFA stent occlusion RIGHT AKP stent occlusion RIGHT AKP stent flap RIGHT BKP stenosis - 80-90% diffuse RIGHT AT stenosis - 40% proximal RIGHT TPT stenosis - 80-90% diffuse RIGHT PT occlusion - proximal RIGHT Pr occlusion - proximal RIGHT DP occlusion - distal RIGHT plantar occlusion Procedure/CPT?? Codes: LEFT HEALTH CENTER ASSISTANT access - ultrasound guided Aortogram with RIGHT lower extremity run-off RIGHT HEALTH CENTER ASSISTANT atherectomy (HawkOne M) RIGHT SFA atherectomy (HawkOne M) RIGHT Pop atherectomy (HawkOne M) RIGHT HEALTH CENTER ASSISTANT angioplasty ([id number] InPACT) RIGHT SFA angioplasty ([id number] InPACT) RIGHT Pop angioplasty ([id number] InPACT) RIGHT AKP stent (5x50mm Viabahn) RIGHT TPT angioplasty ([id number] Ultraverse) RIGHT PT angioplasty ([id number] Ultraverse) RIGHT plantar angioplasty ([id number] Ultraverse, 1.5x80mm UltraverseRx) RIGHT AT angioplasty ([id number] Ultraverse) RIGHT DP angioplasty ([id number] Ultraverse, 1.5x80mm UltraverseRx) RIGHT pedal arch angioplasty (1.5x80mm UltraverseRx) LEFT HEALTH CENTER ASSISTANT closure (Angioseal) Staff: Surgeon(s): Aman Jimenez MD Surveyor Helper Rod: Jennifer Woodruff RN Radio Intelligence Operator: Salomon Villa Scrub Person: Deborah Goodman Orientee: Aline Ramirez RN Anesthesia: Monitored Anesthesia Care Estimated Blood Loss: minimal Implants: Nothing was implanted during the procedure Specimen: None Findings: With the catheter in the distal abdominal aorta, flow was seen BILATERALLY into the iliacarteries. On the LEFT, the common (COLLEEN) iliac artery is patent and continues to the iliac bifurcation with visualization of the internal (IIA) and external (EIA) iliac arteries. Beyond this point, the vasculature was not specifically interrogated. On the RIGHT, the COLLEEN is patent and continues to the iliac bifurcation with visualization of the IIA and EIA arteries. Flow continues into the common (HEALTH CENTER ASSISTANT) femoral artery which continues to the femoral bifurcation with visualization of only the profunda (PFA) femoral artery which is well developed throughout the thigh. The napaimute superficial (SFA) femoral artery has been previously stented and isoccluded with a flush occlusion noted at the origin. The stents continue into the proximal above-knee popliteal (AKP) which is also occluded. There is late reconstitution of the mid AKP via PFA collaterals seen. With the catheter in the proximal AKP, the vessel is heavily diseased with 80-90% stenosis which continues past the knee into the below-knee popliteal (BKP) which is equally diseased without visualization of the trifurcation. The anterior tibial (AT) is minimally diseased proximally with 40% stenosis seen. The tibioperoneal trunk (TPT) is diffusely diseased with 80-90% stenosis without clear visualization of either the posterior tibial (PT) and peroneal (Pr) arteries. Complications: None Description of Procedure: The patient was seen in the preoperative area. The site of surgery was properly noted/marked if necessary per policy. The patient has been actively warmed in preoperative area. Preoperative antibiotics have been ordered and given within 0.5 hours of incision. Venous thrombosis prophylaxis are not indicated. Patient was lying supine on the hybrid OR table when she surrendered to general anesthesia. Notably, due to her prior RIGHT sided CVA, she has chronic contractures and is unable to fully lie flat andwas ultimately positioned into a skewed orientation. The BILATERAL groins were then prepped and draped in usual sterile fashion. The patient was identified as Yolanda Schuster per timeout protocol. The LEFT HEALTH CENTER ASSISTANT was then visualized by ultrasound and accessed in retrograde fashion using micropuncture technique. The 6 Turkmen sheath was installed and the 035/260 glide advantage wire (GAW) was then advanced into the abdominal aorta and the flush catheter was then used to obtain an aortogram. The wire and catheter were directed up and over into the RIGHT HEALTH CENTER ASSISTANT and additional runoff views were then obtained of the RIGHT lower extremity. The 6 Turkmen sheath was then exchanged for a 6Fr/45 cm destination sheath which was positioned in the RIGHT HEALTH CENTER ASSISTANT. The patient was then systemically heparinized with 7000 units of heparin. The trail blazer and wire were then directed into the occluded RIGHT superficial femoral artery stents and then into the popliteal which confirmed true lumen access. The 014/300 glide advantage wire was then directed into the posterior tibial then further into the plantar artery, but the pedal arch could not be accessed. Next, the 3mm balloon was used to angioplasty the plantar (2ATM), posterior tibial (6ATM) and tibioperoneal trunk and popliteal (8ATM) in successive fashion. The wire was then exchanged for the 3mm spider wire which was deployed in the below-knee popliteal. Next, the HawkOne was then used to atherectomize the superficial femoral artery stent and popliteal down to the trifurcation. The 5mm drug-coated balloon was used to angioplasty the below- and above-knee popliteal artery (8ATM, 2min). The 6mm drug-coated balloon was used to angioplasty the common and superficial femoral arteries (8ATM, 2min). The spider wire was retrieved using the 6mm balloon and exchanged for the 014/300 glide advantage wire which was directed into the anterior tibial. Interval arteriogram demonstrates a residual 40% proximal superficial femoral artery stenosis with widely patent flow through the previously occluded superficial femoral and above-knee popliteal stents with a small flap of plaque along the lateral aspect of the distal edge. Next, the 014 wire was directed further into the dorsalis pedis and the 3mm balloon was used to angioplasty the proximal dorsalis pedis and entire anterior tibial. 200mcg of nitroglycerin was administered into the mid dorsalis pedis and eventually the wire was able to negotiate the entire pedal arch and emerged retrograde into the plantar and distal posterior tibial! The 1.5mm monorail balloon was then used to angioplasty the plantar, pedal arch and dorsalis pedis with completion arteriogram now demonstrating minor residual stenosis in the proximal superficial femoral artery, widely patent flow through the previously occluded superficial femoral and above-knee popliteal stents, patent flow across the knee joint with2 vessel run-off seen into the anterior and posterior tibial arteries with full visualization of the pedal arch ([place] I). The sheath was then exchanged over the wire for an Angioseal hemostatically. Dispo: Stable to CVOU. Routine post-femoral access management. Operative findings discussed with patient's . Continue Plavix. F/U Barbara 2 weeks with ALICIA. Aman Jimenez MD Date: 12/17/2024 Time: 08:14 EDT documented in this encounter Miscellaneous Notes * Significant Note - Deborah Ray RN - 10/25/2024 9:56 AM EDT Database initiated documented in this encounter Plan of Treatment Not on file documented as of this encounter Procedures Procedure Name Priority Date/Time Associated Diagnosis Comments XR [place] PROCEDURE Routine 12/17/2024 10:05 AM EDT AORTOGRAM WITH OR WITHOUT RUNOFFS POSSIBLE STENT 12/17/2024 7:45 AM EDT documented in this encounter Results * XR [place] Procedure (12/17/2024 10:05 AM EDT) Aman Jimenez MD IMG DIAGNOSTIC IMAGING ORD ERABLES Final Result documented in this encounter Visit Diagnoses Not on filedocumented in this encounter Administered Medications Inactive Administered Medications - up to 3 most recent administrations Medication Order MAR Action Action Date Dose Rate Site carvedilol (COREG) tablet 25 mg 25 mg, Oral, Once, On 12/17/24 at 0707, For 1 dose, Hold for SBP less than 100, DBP less than 60, or heart rate less than 50. If a dose is held, please contact the provider. Give with food. Given 12/17/2024 7:24 AM EDT 25 mg droperidol (INAPSINE) injection 0.625 mg 0.625 mg, Intravenous, Every 15 Minutes PRN, Nausea, Vomiting, Starting on Tue12/17/24 at 1011, For 2 doses droperidol (INAPSINE) injection 0.625 mg 0.625 mg, Intramuscular, Once As Needed, Nausea, Vomiting, Starting on Tue12/17/24 at 1011, For 2 doses ePHEDrine injection 5 mg 5 mg, Intravenous, Once As Needed, symptomatic hypotension - Notify attending anesthesiologist, Starting on Tue12/17/24 at 1011, For 1 dose, Caution: Look alike/sound alike drug alert Dilute with NS to 5-10 mg/mL. Central line preferred, if unavailable use large bore IV access with frequent nurse monitoring of IV site. famotidine (PEPCID) tablet 20 mg 20 mg, Oral, Once, On Tue12/17/24 at 0653, For 1 dose Given 12/17/2024 7:24 AM EDT 20 mg fentaNYL citrate (PF) (SUBLIMAZE) 50 mcg/mL injection - ADS Override Pull Starting on Tue12/17/24 at 1013, For 1 dose, Created by [email or web address] override If given for pain, use the following pain scale: Mild Pain = Pain Score of 1-3, CPOT 1-2 Moderate Pain = Pain Score of 4-6, CPOT 3-4 Severe Pain = Pain Score of 7-10, CPOT 5-8 fentaNYL citrate (PF) (SUBLIMAZE) injection 50 mcg 50 mcg, Intravenous, Every 5 Minutes PRN, Severe Pain, breakthrough pain, Starting on Tue12/17/24 at 1011, For 4 doses, PACU only. Maximum cumulative total dose of fentanyl is 100 mcg (30 MME) If given for pain, use the following pain scale: Mild Pain = Pain Score of 1-3, CPOT 1-2 Moderate Pain = Pain Score of 4-6, CPOT 3-4 Severe Pain = Pain Score of 7-10, CPOT 5-8 Given 12/17/2024 11:50 AM EDT 50 mcg Given 12/17/2024 10:14 AM EDT 50 mcg hydrALAZINE (APRESOLINE) 20 MG/ML injection - ADS Override Pull Starting on Tue12/17/24 at 1121, For 1 dose, Created by cabinet override Caution: Look alike/sound alike drug alert hydrALAZINE (APRESOLINE) injection 10 mg 10 mg, Intravenous, Every 6 Hours PRN, High Blood Pressure, SBP >150mmHg, Starting on Tue12/17/24 at 0957, Hold for SBP less than 100, DBP less than 60. Caution: Look alike/sound alike drug alert hydrALAZINE (APRESOLINE) injection 5 mg 5 mg, Intravenous, Every 10 Minutes PRN, High Blood Pressure, for systolic blood pressure greater than 180 mmHg or diastolic blood pressure greater than 105 mmHg, Starting on Tue12/17/24 at 1011, Up to 20 mg. Caution: Look alike/sound alike drug alert Given 12/17/2024 11:22 AM EDT 5 mg HYDROcodone-acetaminophen (NORCO) 5-325 MG per tablet 1 tablet 1 tablet, Oral, Every 4 Hours PRN, Moderate Pain, Starting on Tue12/17/24 at 1011, For 2 doses, May be given once in PACU and/or once for outpatient pain as needed. [LUISITO] Do not exceed 4 grams of acetaminophen in a 24 hr period. Max dose of 2gm for AST/ALT greater than 120 units/L If given for pain, use the following pain scale: Mild Pain = Pain Score of 1-3, CPOT 1-2 Moderate Pain = Pain Score of 4-6, CPOT 3-4 Severe Pain = Pain Score of 7-10, CPOT 5-8 HYDROcodone-acetaminophen (NORCO) 7.5-325 MG per tablet 1 tablet 1 tablet, Oral, Every 4 Hours PRN, Severe Pain, Starting on Tue12/17/24 at 1011, For 2 doses, May be given once in PACU and/or once for outpatient pain as needed. [LUISITO] Do not exceed 4 grams of acetaminophen in a 24 hr period. Max dose of 2gm for AST/ALT greater than 120 units/L If given for pain, use the following pain scale: Mild Pain = Pain Score of 1-3, CPOT 1-2 Moderate Pain = Pain Score of 4-6, CPOT 3-4 Severe Pain = Pain Score of 7-10, CPOT 5-8 HYDROmorphone (DILAUDID) injection 0.25 mg 0.25 mg, Intravenous, Every 15 Minutes PRN, Moderate Pain, Starting on Tue12/17/24 at 1011, For 4 doses, Max of 1 mg (20 MME) PACU only. If given for pain, use the following pain scale: Mild Pain = Pain Score of 1-3, CPOT 1-2 Moderate Pain = Pain Score of 4-6, CPOT 3-4 Severe Pain = Pain Score of 7-10, CPOT 5-8 HYDROmorphone (DILAUDID) injection 0.5 mg 0.5 mg, Intravenous, Every 15 Minutes PRN, Severe Pain, Starting on Tue12/17/24 at 1011, For 4 doses, Max of 2 mg (40 MME) PACU only. If given for pain, use the following pain scale: Mild Pain = Pain Score of 1-3, CPOT 1-2 Moderate Pain = Pain Score of 4-6, CPOT 3-4 Severe Pain = Pain Score of 7-10, CPOT 5-8 ipratropium-albuterol (DUO-NEB) nebulizer solution 3 mL 3 mL, Nebulization, Once As Needed, Wheezing, Shortness of Air, bronchospasm, Starting on Tue12/17/24 at 1011, For 1 dose labetalol (NORMODYNE,TRANDATE) injection 5 mg 5 mg, Intravenous, Every 5 Minutes PRN, High Blood Pressure, for systolic blood pressure greater than 180 mmHg or diastolic blood pressure greater than 105 mmHg, Starting on Tue12/17/24 at 1011, For 4 doses, Hold for heart rate less than 60. Give IV Push over 2 minutes. lactated ringers bolus 250 mL 250 mL, Intravenous, at 1,666.7 mL/hr, Administer over 0.15 Hours, Once As Needed, Hypotension, Starting on Tue12/17/24 at 1011, For 2 doses, Indications: HypotensionIndications:Hypotens ion lactated ringers infusion 9 mL/hr, Intravenous, Continuous, Starting on Tue12/18/24 at 0600, For 1 day, May switch to NS IV at [facility] if renal / if indicated Currently Infusing 12/17/2024 8:02 AM EDT 9 mL/hr New Bag 12/17/2024 7:25 AM EDT 9 mL/hr 9 mL/hr lactated ringers infusion 9 mL/hr, Intravenous, Continuous, Starting on Tue12/17/24 at 1014, For 1 day Morphine sulfate (PF) injection 4 mg 4 mg, Intravenous, Every 1 Hour PRN, Severe Pain, Starting on Tue12/17/24 at 0958, For 5 doses, Based on patient request - if ordered for moderate or severe pain, provider allows for administration of a medication prescribed for a lower pain scale. (LUISITO) Caution: Look alike/sound alike drug alert If given for pain, use the following pain scale: Mild Pain = Pain Score of 1-3, CPOT 1-2 Moderate Pain = Pain Score of 4-6, CPOT 3-4 Severe Pain = Pain Score of 7-10, CPOT 5-8 naloxone (NARCAN) injection 0.4 mg 0.4 mg, Intravenous, As Needed, Opioid Reversal, unresponsiveness, decrease oxygen saturation, Starting on Tue12/17/24 at 1011 naloxone (NARCAN) injection 0.4 mg 0.4 mg, Intravenous, Every 5 Minutes PRN, Respiratory Depression, Starting on Tue12/17/24 at 1011, For 5 doses, If respiratory rate is less than 8 breaths/minute or patient is difficult to arouse stop any narcotics and contact physician. Administer slow IV push. Repeat as ordered until patient's respiratory rate is greater than 12 breaths/minute. naloxone (NARCAN) injection 0.4 mg 0.4 mg, Intravenous, Every 5 Minutes PRN, Respiratory Depression, Starting on Tue12/17/24 at 1011, If respiratory rate is less than 8 breaths/minute or patient is difficult to arouse stop any narcotics and contact physician. Administer slow IV push. Repeat as ordered until patient's respiratory rate is greater than 12 breaths/minute. naloxone (NARCAN) injection 0.4 mg 0.4 mg, Intravenous, Every 5 Minutes PRN, Respiratory Depression, Starting on Tue12/17/24 at 1011, If respiratory rate is less than 8 breaths/minute or patient is difficult to arouse stop any narcotics and contact physician. Administer slow IV push. Repeat as ordered until patient's respiratory rate is greater than 12 breaths/minute. ondansetron (ZOFRAN) injection 4 mg 4 mg, Intravenous, Once As Needed, Nausea, Vomiting, Starting on Tue12/17/24 at 1011, For 1 dose, If BOTH ondansetron (ZOFRAN) and promethazine (PHENERGAN) are ordered use ondansetron first and THEN promethazine IF ondansetron is ineffective. ondansetron (ZOFRAN) injection 4 mg 4 mg, Intravenous, Every 6 Hours PRN, Nausea, Vomiting, Starting on Tue12/17/24 at 0957, If multiple N/V medications ordered, use in the following order: Ondansetron, Prochlorperazine, Promethazine. Use PO unless patient refuses or patient unable to swallow. sodium chloride 0.9 % flush 3 mL 3 mL, Intravenous, Every 12 Hours Scheduled, First dose on Tue12/17/24 at 1014 sodium chloride 0.9 % flush 3-10 mL 3-10 mL, Intravenous, As Needed, Line Care, Starting on Tue12/17/24 at 1011 sodium chloride 0.9 % infusion 9 mL 9 mL, Intravenous, As Needed, Line Care, Starting on Tue12/17/24 at 1011, For 1 day, Following administration of an IV intermittent medication, flush line with 40mL NS at 100mL/hr. documented in this encounter Active and Recently Administered Medications Times are shown in EDT. Scheduled Medication Order 12/15/2024 12/16/2024 12/17/2024 carvedilol (COREG) tablet 25 mg (COMPLETED) 25 mg, Oral, Once, On Tue12/17/24 at 0707, For 1 dose, Hold for SBP less than 100, DBP less than 60, or heart rate less than 50. If a dose is held, please contact the provider. Give with food. 0724 (Given - Provid er: Anh Baltazar RN) ceFAZolin 2000 mg IVPB in 100 mL NS (MBP) (COMPLETED) 2,000 mg, Intravenous, Administer over 30 Minutes, Once, On Tue12/17/24 at 0653, For 1 dose, Caution: Look alike/sound alike drug alert, Indications: Surgical Prophylaxis 0802 (New Bag - Prov ider: Kortney Castillo, ALONDRA) famotidine (PEPCID) tablet 20 mg (COMPLETED) 20 mg, Oral, Once, On Tue12/17/24 at 0653, For 1 dose 0724 (Given - Provid er: Anh Baltazar RN) sodium chloride 0.9 % flush 3 mL 3 mL, Intravenous, Every 12 Hours Scheduled, First dose on Tue12/17/24 at 1014 1014 (Due) Continuous Medication Order 12/15/2024 12/16/2024 12/17/2024 lactated ringers infusion 9 mL/hr, Intravenous, Continuous, Starting on Tue12/18/24 at 0600, For 1 day, May switch to NS IV at [facility] if renal / if indicated 0725 (New Bag - Prov ider: Anh Baltazar RN)0802 (Currently Infusing - Provider: Kortney Castillo CRNA)1542 (Due: Order Ending - Provider: Automatic Discharge Provider - Comment: [Order ends at this time. Document the following action when infusion is complete: Stopped]) lactated ringers infusion 9 mL/hr, Intravenous, Continuous, Starting on Tue12/17/24 at 1014, For 1 day 1014 (Due) PRN Medication Order 12/15/2024 12/16/2024 12/17/2024 droperidol (INAPSINE) injection 0.625 mg(Linked Group 1) 0.625 mg, Intravenous, Every 15 Minutes PRN, Nausea, Vomiting, Starting on Tue12/17/24 at 1011, For 2 doses droperidol (INAPSINE) injection 0.625 mg(Linked Group 1) 0.625 mg, Intramuscular, Once As Needed, Nausea, Vomiting, Starting on Tue12/17/24 at 1011, For 2 doses ePHEDrine injection 5 mg 5 mg, Intravenous, Once As Needed, symptomatic hypotension - Notify attending anesthesiologist, Starting on Tue12/17/24 at 1011, For 1 dose, Caution: Look alike/sound alike drug alert Dilute with NS to 5-10 mg/mL. Central line preferred, if unavailable use large bore IV access with frequent nurse monitoring of IV site. fentaNYL citrate (PF) (SUBLIMAZE) injection 50 mcg(Linked Group 2) 50 mcg, Intravenous, Every 5 Minutes PRN, Severe Pain, breakthrough pain, Starting on Tue12/17/24 at 1011, For 4 doses, PACU only. Maximum cumulative total dose of fentanyl is 100 mcg (30 MME) If given for pain, use the following pain scale: Mild Pain = Pain Score of 1-3, CPOT 1-2 Moderate Pain = Pain Score of 4-6, CPOT 3-4 Severe Pain = Pain Score of 7-10, CPOT 5-8 1014 (Given - Provid er: Kevin Shaffer RN)1150 (Given - Provider: Kevin Shaffer RN) hydrALAZINE (APRESOLINE) injection 10 mg 10 mg, Intravenous, Every 6 Hours PRN, High Blood Pressure, SBP >150mmHg, Starting on Tue12/17/24 at 0957, Hold for SBP less than 100, DBP less than 60. Caution: Look alike/sound alike drug alert hydrALAZINE (APRESOLINE) injection 5 mg 5 mg, Intravenous, Every 10 Minutes PRN, High Blood Pressure, for systolic blood pressure greater than 180 mmHg or diastolic blood pressure greater than 105 mmHg, Starting on Tue12/17/24 at 1011, Up to 20 mg. Caution: Look alike/sound alike drug alert 1122 (Given - Provid er: Kevin Shaffer RN) HYDROcodone-acetaminophen (NORCO) 5-325 MG per tablet 1 tablet 1 tablet, Oral, Every 4 Hours PRN, Moderate Pain, Starting on Tue12/17/24 at 1011, For 2 doses, May be given once in PACU and/or once for outpatient pain as needed. [LUISITO] Do not exceed 4 grams of acetaminophen in a 24 hr period. Max dose of 2gm for AST/ALT greater than 120 units/L If given for pain, use the following pain scale: Mild Pain = Pain Score of 1-3, CPOT 1-2 Moderate Pain = Pain Score of 4-6, CPOT 3-4 Severe Pain = Pain Score of 7-10, CPOT 5-8 HYDROcodone-acetaminophen (NORCO) 7.5-325 MG per tablet 1 tablet 1 tablet, Oral, Every 4 Hours PRN, Severe Pain, Starting on Tue12/17/24 at 1011, For 2 doses, May be given once in PACU and/or once for outpatient pain as needed. [LUISITO] Do not exceed 4 grams of acetaminophen in a 24 hr period. Max dose of 2gm for AST/ALT greater than 120 units/L If given for pain, use the following pain scale: Mild Pain = Pain Score of 1-3, CPOT 1-2 Moderate Pain = Pain Score of 4-6, CPOT 3-4 Severe Pain = Pain Score of 7-10, CPOT 5-8 HYDROmorphone (DILAUDID) injection 0.25 mg(Linked Group 3) 0.25 mg, Intravenous, Every 15 Minutes PRN, Moderate Pain, Starting on Tue12/17/24 at 1011, For 4 doses, Max of 1 mg (20 MME) PACU only. If given for pain, use the following pain scale: Mild Pain = Pain Score of 1-3, CPOT 1-2 Moderate Pain = Pain Score of 4-6, CPOT 3-4 Severe Pain = Pain Score of 7-10, CPOT 5-8 HYDROmorphone (DILAUDID) injection 0.5 mg(Linked Group 4) 0.5 mg, Intravenous, Every 15 Minutes PRN, Severe Pain, Starting on Tue12/17/24 at 1011, For 4 doses, Max of 2 mg (40 MME) PACU only. If given for pain, use the following pain scale: Mild Pain = Pain Score of 1-3, CPOT 1-2 Moderate Pain = Pain Score of 4-6, CPOT 3-4 Severe Pain = Pain Score of 7-10, CPOT 5-8 ipratropium-albuterol (DUO-NEB) nebulizer solution 3 mL 3 mL, Nebulization, Once As Needed, Wheezing, Shortness of Air, bronchospasm, Starting on Tue12/17/24 at 1011, For 1 dose labetalol (NORMODYNE,TRANDATE) injection 5 mg 5 mg, Intravenous, Every 5 Minutes PRN, High Blood Pressure, for systolic blood pressure greater than 180 mmHg or diastolic blood pressure greater than 105 mmHg, Starting on Tue12/17/24 at 1011, For 4 doses, Hold for heart rate less than 60. Give IV Push over 2 minutes. lactated ringers bolus 250 mL 250 mL, Intravenous, at 1,666.7 mL/hr, Administer over 0.15 Hours, Once As Needed, Hypotension, Starting on Tue12/17/24 at 1011, For 2 doses, Indications: Hypotension lidocaine (XYLOCAINE) 1 % injection (CANCELED) As Needed, Starting on Tue12/17/24 at 0716 0716 (Given - Provid er: Aman Jimenez MD - Comment: GIVEN TO [employer]ER[employer]) Morphine sulfate (PF) injection 4 mg 4 mg, Intravenous, Every 1 Hour PRN, Severe Pain, Starting on Tue12/17/24 at 0958, For 5 doses, Based on patient request - if ordered for moderate or severe pain, provider allows for administration of a medication prescribed for a lower pain scale. (LUISITO) Caution: Look alike/sound alike drug alert If given for pain, use the following pain scale: Mild Pain = Pain Score of 1-3, CPOT 1-2 Moderate Pain = Pain Score of 4-6, CPOT 3-4 Severe Pain = Pain Score of 7-10, CPOT 5-8 naloxone (NARCAN) injection 0.4 mg 0.4 mg, Intravenous, As Needed, Opioid Reversal, unresponsiveness, decrease oxygen saturation, Starting on Tue12/17/24 at 1011 naloxone (NARCAN) injection 0.4 mg(Linked Group 3) 0.4 mg, Intravenous, Every 5 Minutes PRN, Respiratory Depression, Starting on Tue12/17/24 at 1011, For 5 doses, If respiratory rate is less than 8 breaths/minute or patient is difficult to arouse stop any narcotics and contact physician. Administer slow IV push. Repeat as ordered until patient's respiratory rate is greater than 12 breaths/minute. naloxone (NARCAN) injection 0.4 mg(Linked Group 4) 0.4 mg, Intravenous, Every 5 Minutes PRN, Respiratory Depression, Starting on Tue12/17/24 at 1011, If respiratory rate is less than 8 breaths/minute or patient is difficult to arouse stop any narcotics and contact physician. Administer slow IV push. Repeat as ordered until patient's respiratory rate is greater than 12 breaths/minute. naloxone (NARCAN) injection 0.4 mg(Linked Group 2) 0.4 mg, Intravenous, Every 5 Minutes PRN, Respiratory Depression, Starting on Tue12/17/24 at 1011, If respiratory rate is less than 8 breaths/minute or patient is difficult to arouse stop any narcotics and contact physician. Administer slow IV push. Repeat as ordered until patient's respiratory rate is greater than 12 breaths/minute. ondansetron (ZOFRAN) injection 4 mg 4 mg, Intravenous, Once As Needed, Nausea, Vomiting, Starting on Tue12/17/24 at 1011, For 1 dose, If BOTH ondansetron (ZOFRAN) and promethazine (PHENERGAN) are ordered use ondansetron first and THEN promethazine IF ondansetron is ineffective. ondansetron (ZOFRAN) injection 4 mg 4 mg, Intravenous, Every 6 Hours PRN, Nausea, Vomiting, Starting on Tue12/17/24 at 0957, If multiple N/V medications ordered, use in the following order: Ondansetron, Prochlorperazine, Promethazine. Use PO unless patient refuses or patient unable to swallow. sodium chloride 0.9 % flush 3-10 mL 3-10 mL, Intravenous, As Needed, Line Care, Starting on Tue12/17/24 at 1011 sodium chloride 0.9 % infusion 9 mL 9 mL, Intravenous, As Needed, Line Care, Starting on Tue12/17/24 at 1011, For 1 day, Following administration of an IV intermittent medication, flush line with 40mL NS at 100mL/hr. sodium chloride 500 mL with heparin (porcine) 1,000 Units mixture (CANCELED) As Needed, Starting on Tue12/17/24 at 0715 0715 (Given - Provid er: Aman Jimenez MD - Comment: GIVEN TO STERILE FIELD) Linked Groups Order Group 1: droperidol (INAPSINE) injection 0.625 mgJump to med 0.625 mg, Intravenous, Every 15 Minutes PRN, Nausea, Vomiting, Starting on Tue12/17/24 at 1011, For 2 doses Or droperidol (INAPSINE) injection 0.625 mgJump to med 0.625 mg, Intramuscular, Once As Needed, Nausea, Vomiting, Starting on Tue12/17/24 at 1011, For 2 doses Group 2: fentaNYL citrate (PF) (SUBLIMAZE) injection 50 mcgJump to med 50 mcg, Intravenous, Every 5 Minutes PRN, Severe Pain, breakthrough pain, Starting on Tue12/17/24 at 1011, For 4 doses, PACU only. Maximum cumulative total dose of fentanyl is 100 mcg (30 MME) If given for pain, use the following pain scale: Mild Pain = Pain Score of 1-3, CPOT 1-2 Moderate Pain = Pain Score of 4-6, CPOT 3-4 Severe Pain = Pain Score of 7-10, CPOT 5-8 And naloxone (NARCAN) injection 0.4 mgJump to med 0.4 mg, Intravenous, Every 5 Minutes PRN, Respiratory Depression, Starting on Tue12/17/24 at 1011, If respiratory rate is less than 8 breaths/minute or patient is difficult to arouse stop any narcotics and contact physician. Administer slow IV push. Repeat as ordered until patient's respiratory rate is greater than 12 breaths/minute. Group 3: HYDROmorphone (DILAUDID) injection 0.25 mgJump to med 0.25 mg, Intravenous, Every 15 Minutes PRN, Moderate Pain, Starting on Tue12/17/24 at 1011, For 4 doses, Max of 1 mg (20 MME) PACU only. If given for pain, use the following pain scale: Mild Pain = Pain Score of 1-3, CPOT 1-2 Moderate Pain = Pain Score of 4-6, CPOT 3-4 Severe Pain = Pain Score of 7-10, CPOT 5-8 And naloxone (NARCAN) injection 0.4 mgJump to med 0.4 mg, Intravenous, Every 5 Minutes PRN, Respiratory Depression, Starting on Tue12/17/24 at 1011, For 5 doses, If respiratory rate is less than 8 breaths/minute or patient is difficult to arouse stop any narcotics and contact physician. Administer slow IV push. Repeat as ordered until patient's respiratory rate is greater than 12 breaths/minute. Group 4: HYDROmorphone (DILAUDID) injection 0.5 mgJump to med 0.5 mg, Intravenous, Every 15 Minutes PRN, Severe Pain, Starting on Tue12/17/24 at 1011, For 4 doses, Max of 2 mg (40 MME) PACU only. If given for pain, use the following pain scale: Mild Pain = Pain Score of 1-3, CPOT 1-2 Moderate Pain = Pain Score of 4-6, CPOT 3-4 Severe Pain = Pain Score of 7-10, CPOT 5-8 And naloxone (NARCAN) injection 0.4 mgJump to med 0.4 mg, Intravenous, Every 5 Minutes PRN, Respiratory Depression, Starting on Tue12/17/24 at 1011, If respiratory rate is less than 8 breaths/minute or patient is difficult to arouse stop any narcotics and contact physician. Administer slow IV push. Repeat as ordered until patient's respiratory rate is greater than 12 breaths/minute. documented in this encounter Care Teams Dice Maker Relationship Specialty Start Date End Date Kb Hernández DO [address] [place] [id number] PCP - General Internal Medicine 04/09/23 documented as of this encounter
--- OUTSIDE RECORDS SUMMARY | 2024-12-17 06:45 | XMS_ITS | Encounter Summary ---
Author Organization [facility] Address [address] [place] [address] Care Team Providers Care Home Teaching Grades 7 And 8 Teacher Name Role Phone EdgarKb gan Humble Primary Care Provider + Reason for Visit * Auth/Cert Specialty Diagnoses / Procedures Referred By Contac t Referred To Contact Procedures AORTOGRAM WITH RUNOFF AND POSSIBLE RIGHT INTERVENTION Referral ID Status Reason Start Date Expiration Date Visits Re quested Visits Authorized [id number] 1 1 Encounter Details Date Type Department Care Team (Late st Contact Info) Description 12/17/2024 7:45 AM EDT - 12/17/2024 9:29 AM EDT Surgery [facility] OR [address] [place] [address] Aman Jimenez MD [address] [place] [address] ROUTING EQUIPMENT TENDER ACCESS LEFT, AORTOGRAM, RIGHT ROUTING EQUIPMENT TENDER/SFA/POP ATHERECTOMY, ROUTING EQUIPMENT TENDER/SFA/POP/AT/DP/TPT /PT/PLANTAR/ARCH ANGIOPLASTY, POPLITEAL STENT Social History Tobacco Use Types Packs/Day Years [...] or training? Not on file Preferred Language Taiwanese 12/14/2024 Comments No Sex and Gender Information Value Date Recorded Sex Assigned at Not on file Legal Sex Female 11:22 AM EDT Gender Identity Not on file Sexual Orientation Not on file documented as of this encounter Last Filed Vital Signs Vital Sign Reading Time Taken Comments Blood Pressure 206/74 12/17/2024 7:28 AM EDT Pulse 70 12/17/2024 7:28 AM EDT Temperature 36.6 C (97.8 F) 12/17/2024 7:28 AM EDT Respiratory Rate 18 12/17/2024 7:28 AM EDT Oxygen Saturation 96% 12/17/2024 7:28 AM EDT Inhaled Oxygen Concentration - - Weight 77.1 kg (170 lb) 12/17/2024 7:28 AM EDT Height 154.9 cm (5' 1 ) 12/17/2024 7:28 AM EDT Body Mass Index 32.12 12/17/2024 7:28 AM EDT documented in this encounter Functional Status * Question Answer Date of Assessment Author 1. Wish to be (Past 1 Month) No 025 7:29 AM EDT Anh Baltazar RN 2. Non-Specific Active Suici vinay Thoughts (Past 1 Month) No 12/17/2024 7:29 AM EDT Jeni Baltazar RN * Calculated C-SSRS Risk Score (Lifetime/Recent) Answer Date of Assessment Author No Risk Indicated 12/17/2024 7:29 AM EDT Anh Baltazar RN * [place] Suicide Severity Rating Scale (Screener/Recent Self-Report) Question Answer Date of Assessment Author 6. Suicidal Behavior (Lifetime) No 7:29 AM EDT Anh Baltazar RN documented as of this encounter Discharge Instructions * Attachments The following attachments cannot be sent through Care Everywhere. * General Anesthesia Adult Care After (Taiwanese) * Endovascular Therapy for Peripheral Vascular Disease: What to Know After (Taiwanese) documented in this encounter Medications at Time [...] 20 MG tablet 08/21/2024 vitamin D (ERGOCALCIFEROL) 20329 UNITS capsule capsule Take 1 capsule by [...] of this encounter H&P Notes * Princess Guerrero, JONNY - 12/17/2024 7:10 AM EDT Pre-Op H&P Yolanda Schuster [phone] Chief complaint: Right leg pain Subjective: [...] 20 MG tablet 12/16/2024 vitamin D (ERGOCALCIFEROL) 77538 UNITS capsule capsule Take 1 capsule by [...] transfusion BLOOD TRANSFUSION S/P SURGERY; ~1995 AT [facility] (hard of hearing) Hyperlipidemia Hypertension Osteoporosis PVD [...] stage group or __N/A Impression: Atherosclerosis of pilot station artery of right leg with pain Plan: [...] Phone Number for Ride/Caregiver: SAMEER SCHUSTER (SPOUSE) [phone] Who will be staying with you post procedure for the next 24 hours? Name and Phone Number?: SAMEER SCHUSTER (SPOUSE) [phone] documented in this encounter OR Notes * [...] distal RIGHT plantar occlusion Procedure/CPT?? Codes: LEFT ROUTING EQUIPMENT TENDER access - ultrasound guided Aortogram with RIGHT lower extremity run-off RIGHT ROUTING EQUIPMENT TENDER atherectomy (HawkOne M) RIGHT SFA atherectomy (HawkOne M) RIGHT Pop atherectomy (HawkOne M) RIGHT ROUTING EQUIPMENT TENDER angioplasty ([id number] InPACT) RIGHT SFA angioplasty ([id number] InPACT) RIGHT Pop angioplasty (2m291xy InPACT) RIGHT AKP stent (5x50mm Viabahn) RIGHT TPT angioplasty ([id number] Ultraverse) RIGHT PT angioplasty ([id number] Ultraverse) RIGHT plantar angioplasty ([id number] Ultraverse, 1.5x80mm UltraverseRx) RIGHT AT angioplasty ([id number] Ultraverse) RIGHT DP angioplasty ([id number] Ultraverse, 1.5x80mm UltraverseRx) RIGHT pedal arch angioplasty (1.5x80mm UltraverseRx) LEFT ROUTING EQUIPMENT TENDER closure (Angioseal) Staff: Surgeon(s): Aman Jimenez MD Elevator Constructor Electric: Jennifer Woodruff RN Director Funds Development: Salomon Villa Scrub Person: Deborah Goodman Orientee: [...] EIA arteries. Flow continues into the common (ROUTING EQUIPMENT TENDER) femoral artery which continues to the femoral bifurcation with visualization of only the profunda (PFA) femoral artery which is well developed throughout the thigh. The pilot station superficial (SFA) femoral artery has been previously [...] Yolanda Schuster per timeout protocol. The LEFT ROUTING EQUIPMENT TENDER was then visualized by ultrasound and accessed in retrograde fashion using micropuncture technique. The 6 Filipino sheath was installed and the 035/260 glide advantage wire (GAW) was then advanced into the abdominal aorta and the flush catheter was then used to obtain an aortogram. The wire and catheter were directed up and over into the RIGHT ROUTING EQUIPMENT TENDER and additional runoff views were then obtained of the RIGHT lower extremity. The 6 Filipino sheath was then exchanged for a 6Fr/45 cm destination sheath which was positioned in the RIGHT ROUTING EQUIPMENT TENDER. The patient was then systemically heparinized with [...] documented in this encounter Results * XR [facility] OR Procedure (12/17/2024 10:05 AM EDT) us Aman Jimenez MD IMG DIAGNOSTIC IMAGING ORD [...] at 1013, For 1 dose, Created by cabinet override If given for pain, use the [...] at KVO if renal / if indicated Currently Infusing 12/17/2024 8:02 AM EDT 9 mL/hr New Bag 12/17/2024 7:25 AM EDT 9 mL/hr 9 mL/hr lactated ringers infusion 9 mL/hr, Intravenous, Continuous, Starting on Tue12/17/24 at 1014, For 1 day lidocaine (XYLOCAINE) 1 % injection As Needed, Starting on Tue12/17/24 at 0716 Given 12/17/2024 7:16 AM EDT 50 mL Morphine sulfate (PF) injection 4 mg 4 [...] mL with heparin (porcine) 1,000 Units mixture As Needed, Starting on Tue12/17/24 at 0715 Given 12/17/2024 7:15 AM EDT documented in this encounter Active and Recently [...] 0802 (New Bag - Prov ider: Kortney Castillo CRNA) famotidine (PEPCID) tablet 20 mg (COMPLETED) 20 [...] 0716 0716 (Given - Provid er: Aman Jiemnez MD - Comment: GIVEN TO STERILE FIELD) [...] breaths/minute. documented in this encounter Care Teams Home Teaching Grades 7 And 8 Teacher Relationship Specialty Start Date End Date Kb Hernández DO [address] [place] [address] PCP - General Internal Medicine 04/09/23 documented as of this encounter
--- OUTSIDE RECORDS SUMMARY | 2024-12-17 07:02 | XMS_ITS | Encounter Summary ---
Author Organization [facility] Address [address] [place] [address] Care Team Providers Care Hole Digger Operator Name Role Phone Kb Hernández Primary Care Provider + Reason for Visit * Auth/Cert Specialty Diagnoses / Procedures Referred By Contac t Referred To Contact Procedures AORTOGRAM WITH RUNOFF AND POSSIBLE RIGHT INTERVENTION Referral ID Status Reason Start Date Expiration Date Visits Re quested Visits Authorized 1 1 Encounter Details Date Type Department Care Team (Late st Contact Info) Description 12/17/2024 8:02 AM EDT Anesthesia Event [facility] OR [address] [place] [address] Marck Ferguson MD [address] [id number] Kevin Clark MD [address] [place] [address] Anesthesia Record Procedure Summary Procedure Name Responsible Anesthesiologist Anesthesia Start Time Anesthesia Stop Time BUSINESS RECORDS MANAGER ACCESS LEFT, AORTOGRAM, RIGHT BUSINESS RECORDS MANAGER/SFA/POP ATHERECTOMY, BUSINESS RECORDS MANAGER/SFA/POP/AT/DP/T PT/PT/PLANTAR/ARCH ANGIOPLASTY, POPLITEAL STENT (Abdomen) Marck Ferguson MD 12/17/24 0802 12/17/24 1012 Events Date Time Event Comment 12/17/2024 0708 0728 AN Equip Check 0802 An Start The patient was reevaluated immediately before moderate or deep sedation use and before anesthesia induction. 0802 An Start Data 0810 An Induction 0959 an stop data 1012 Handoff to RN The following has been completed: 1. Identification of Patient, hummel family member(s) or patient surrogate 2. Identification of the responsible Practitioner (primary service) 3. Discussion of the pertinent/attainable medical history 4. Discussion of the surgical/procedure course (procedure, reason for surgery, procedure performed) 5. Intraoperative anesthetic management and issue/concerns to include things such as airway, hemodynamics, narcotic, sedation level and paralytic management and intravenous fluids/blood products and urine output during the procedure 6. Expectations/Plans for the early post-procedure period to include things such as anticipated course (anticipatory guidance), complications, need for laboratory or ECG and medication administration 7. Opportunity for questions and acknowledgment of understanding of report from the receiving PACU/ICU team 1012 An Stop Meds Name Total propofol 10 MG/ML 689.21 mg lidocaine PF 1% 1 % 30 mg heparin (porcine) 1000 UNIT/ML 7,000 Uni ts ceFAZolin 2000 mg IVPB in 100 mL NS (MBP ) 2,000 mg fentaNYL citrate (PF) 100 MCG/2ML 100 mc g lactated ringers infusion 0 mL * Agents Name O2 N2O Air * Blood No blood administrations on file. Lines, Drains, and Airways Type Details Placement Removal Wound 04/30/19; 1230; Y; L eft; gluteal; Other (shearing) 04/30/19 1230 by Kenisha Gupta APRN Wound 04/30/19; 1230; Y; R ight; gluteal; Pressure inj 04/30/19 1230 by Kenisha Gupta APRN Wound 12/17/24; Right; anterior; fifth toe; Other; PATIENT HURT FOOR EXITING CAR PRIOR TO SURGERY 12/17/24 0000 by Aline Ramirez RN Wound Left; anterior; hip; Surgical; Puncture 12/17/24 0846 by Peripheral IV Placement Date: 11/22 09/14; Placement Time: 724; Catheter Size: 18 G; Orientation: Posterior, Right; Location: Wrist; Site Prep: Chlorhexidine; Local Anes: None; Technique: Anatomical landmarks; Inserted by: Ruth Ann Jefferson RN; Insertion Attempts: 1; Patient Tolerance: Tolerated well; Removal Date: 12/17/24; Removal Time: 1255 12/17/24 0725 by Anh Baltazar RN 12/17/24 1255 by Kevin Shaffer RN documented in this encounter Social History Tobacco Use Types Packs/Day Years Used Date Smoking Tobacco: Every Day Cigarettes Alcohol Use Standard Drinks/Week Comments No 0 [...] or training? Not on file Preferred Language Maltese 12/14/2024 Comments No Sex and Gender Information Value Date Recorded Sex Assigned at Not on file Legal Sex Female 11:22 AM EDT Gender Identity Not on file Sexual Orientation Not on file documented as of this encounter Functional Status * Question Answer [...] 7:29 AM EDT Anh Baltazar RN * [place] Suicide Severity Rating Scale (Screener/Recent Self-Report) Question Answer Date of Assessment Author 6. Suicidal Behavior (Lifetime) No 7:29 AM EDT Anh Baltazar, ROSA documented as of this encounter OR Notes * Anesthesia Postprocedure Evaluation - Kortney Castillo CRNA - 12/17/2024 10:13 AM EDT Patient: Yolanda Agosto Procedure Summary Date: 12/17/24 Room / Location: [facility] Anesthesia Start: 08 Anesthesia Stop: 1011 Procedure: LEFT BUSINESS RECORDS MANAGER ACCESS, AORTOGRAM, RIGHT BUSINESS RECORDS MANAGER/SFA/POP ATHERECTOMY, BUSINESS RECORDS MANAGER/SFA/POP/AT/DP/TPT/PT/PLANTAR/ARCH ANGIOPLASTY, POPLITEAL STENT (Abdomen) Diagnosis: Surgeons: Aman Jimenez MD Provider: Marck Ferguson MD Anesthesia Type: general, MAC ASA Status: 4 Anesthesia Type: general, MAC Vitals Vitals Value Taken Time BP 177/113 12/17/24 10:07 Temp Pulse 76 12/17/24 10:13 Resp SpO2 98 % 12/17/24 10:13 Vitals shown include unfiled device data. Post Anesthesia Care and Evaluation Patient location during evaluation: PACU Patient participation: complete - patient participated Level of consciousness: awake and alert Pain score: 2 Pain management: adequate Airway patency: patent Anesthetic complications: No anesthetic complications PONV Status: none Cardiovascular status: hemodynamically stable and acceptable Respiratory status: nonlabored ventilation, acceptable and nasal cannula Hydration status: acceptable * Anesthesia Preprocedure Evaluation - Marck Ferguson MD - 12/16/2024 3:38 PM EDT Anesthesia Evaluation Patient summary reviewed and Nursing notes reviewed NPO Solid Status: > 8 hours NPO Liquid Status: > 2 hours Airway Mallampati: II TM distance: >3 FB Neck ROM: full No difficulty expected Dental (+) edentulous, lower dentures and upper dentures Pulmonary (+) a smoker Current, cigarettes, COPD moderate, (-) shortness of breath Cardiovascular ECG reviewed (+) hypertension, past [place] (NSTEMI) , CAD, PVD, hyperlipidemia, carotid artery disease (mild) ROS comment: ECHO 2018 EF > 70 mild-to-mod conc LVH LVDD (grade I) impaired relaxation. 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 ROS/Med Hx Other: Plavix Enbrel Phys Exam Other: Dentures Anesthesia Plan ASA 4 general and MAC (PFL vs GA ) intravenous induction Anesthetic plan, risks, benefits, and alternatives have been provided, discussed and informed consent has been obtained with: patient. Plan discussed with BUSINESS MANAGER COLLE[employer] OR UNIVERSITY. CODE STATUS: documented in this encounter Plan of Treatment Not on file documented as of this encounter Visit Diagnoses Not on filedocumented in this encounter Administered Medications Inactive Administered Medications - up to 3 most recent administrations Medication Order MAR Action Action Date Dose Rate Site ceFAZolin 2000 mg IVPB in 100 mL NS (MBP) 2,000 mg, Intravenous, Administer over 30 Minutes, Once, On Tue12/17/24 at 0653, For 1 dose, Caution: Look alike/sound alike drug alert, Indications: Surgical ProphylaxisIndications:Surgical Prophylaxis New Bag 12/17/2024 8:02 AM EDT 2,000 mg fentaNYL citrate (PF) (SUBLIMAZE) injection Intravenous, As Needed, Starting on Tue12/17/24 at 0804 Given 12/17/2024 9:22 AM EDT 25 mcg Given 12/17/2024 8:49 AM EDT 25 mcg Given 12/17/2024 8:10 AM EDT 25 mcg heparin (porcine) injection Intravenous, As Needed, Starting on Tue12/17/24 at 0836 Given 12/17/2024 8:36 AM EDT 7,000 Units lactated ringers infusion 9 mL/hr, Intravenous, Continuous, Starting on Tue12/18/24 at 0600, For 1 day, May switch to NS IV at KVO if renal / if indicated Currently Infusing 12/17/2024 8:02 AM EDT 9 mL/hr New Bag 12/17/2024 7:25 AM EDT 9 mL/hr 9 mL/hr lidocaine PF 1% (XYLOCAINE) injection Intravenous, As Needed, Starting on Tue12/17/24 at 0810 Given 12/17/2024 8:10 AM EDT 30 mg propofol (DIPRIVAN) injection Intravenous, Continuous PRN, Starting on Tue12/17/24 at 0810 Rate/Dose Change 12/17/2024 9:35 AM EDT 50 mcg/kg/min 23.13 mL/hr Rate/Dose Change 12/17/2024 9:05 AM EDT 75 mcg/kg/min 34.6 95 mL/hr Given 12/17/2024 8:11 AM EDT 30 mg documented in this encounter Care Teams Hole Digger Operator Relationship Specialty Start Date End Date Kb Hernández DO [address] [place] [address] PCP - General Internal Medicine 04/09/23 documented as of this encounter
[2024-12-28] VITALS (8 sets, daily range): BP systolic 142–224; BP diastolic 59–108; PULSE 58–71; RESP 15–19; TEMP 36.6–37.2; O2SAT 97–100; BMI 30.9; BMI 27.0
--- OUTSIDE RECORDS SUMMARY | 2024-12-28 16:23 | XMS_ITS | Encounter Summary ---
Author Organization [facility] Address [address] [place] [address] Care Team Providers Care Clinical Research Manager Name Role Phone Antonio Ta MD Primary Care Provider + [phone] Encounter Details Date Type Department Care Team (Late st Contact Info) Description 10/08/2023 Telephone [facility] [address], [address] [place] [address] Tawanda Lundberg MD [address] [place] [address] Social History Tobacco Use Types [...] calls but eventually it was entered into [employer]. The question was about her transverse aortic [...] on filedocumented in this encounter Care Teams Clinical Research Manager Relationship Specialty Start Date End Date Antonio Ta MD [address] [place] [address] PCP - General 07/04/20 documented as of this encounter
--- OUTSIDE RECORDS SUMMARY | 2024-12-28 16:23 | XMS_ITS | Clinical Summary ---
Author Organization [facility] Address [address] [place] [address] Care Team Providers Care Equipment Processor Name Role Phone Antonio Ta MD Primary Care Provider [phone] Social History Tobacco Use Types Packs/Day Years [...] of Treatment Not on file Care Teams Equipment Processor Relationship Specialty Start Date End Date Antonio Ta MD [address] [place] [address] PCP - General 07/04/20
--- OUTSIDE RECORDS SUMMARY | 2024-12-28 16:23 | XMS_ITS | Clinical Summary ---
Author Organization [facility] Address [address] [place] [address] Care Team Providers Care Office 365 Consultant Name Role Phone Kb Hernández Primary Care Provider + Allergies Active Allergy Reactions Criticality Noted Date Comments Cefuroxime Rash Low 12/08/2015 Codeine Rash Low 12/08/2015 Tolerates Oxycodone and Morphine Medications glimepiride (AMARYL) 4 MG tablet Take 1 tablet by mouth 2 (Two) Times a Day. Active meclizine (ANTIVERT) 25 MG tablet Take by mouth As Needed. 02/19/20 14 Active metFORMIN (GLUCOPHAGE) 500 MG tablet Take 2 tablets by mouth 2 (Two) Times a Day With Meals. 02/03/20 14 Active simvastatin (ZOCOR) 40 MG tablet Take 1 tablet by mouth Every Night. 03/08/19 15 Active Cyanocobalamin (VITAMIN B-12 IJ) Inject as directed Every 30 (Thirty) Days. Active alendronate (FOSAMAX) 70 MG tablet Take 1 tablet by mouth Every 7 (Seven) Days. On Mondays Active vitamin D (ERGOCALCIFERO L) 22817 UNITS capsule capsule Take 1 capsule by mouth 1 (One) Time Per Week. 2x a week Active sitaGLIPtin (JANUVIA) 100 MG tablet Take 1 tablet by mouth Daily. Active cyclobenzaprin e (FLEXERIL) 10 MG tablet Take 1 tablet by mouth 3 (Three) Times a Day As Needed for Muscle Spasms. Active oxyCODONE-acet aminophen (PERCOCET) 10-325 MG per tablet Take 1 tablet by mouth Every 6 (Six) Hours As Needed for Moderate Pain or Severe Pain. Active topiramate (TOPAMAX) 50 MG tablet Take 1 tablet by mouth 2 (Two) Times a Day. Active baclofen (LIORESAL) 10 MG tablet Take 1 tablet by mouth 3 (Three) Times a Day. Active leflunomide (ARAVA) 10 MG tablet Take 1 tablet by mouth Daily. Active PARoxetine (PAXIL) 20 MG tablet Take 1 tablet by mouth Every Morning. Take with 40mg tablet for a total daily dose of 60mg Active PARoxetine (PAXIL) 40 MG tablet Take 1 tablet by mouth Every Morning. Take with 20mg tablet for a total daily dose of 60mg Active metOLazone (ZAROXOLYN) 2.5 MG tablet HOLD MEDICATION UNTIL PCP FOLLOW UP 05/01/19 Active potassium chloride (KLOR-CON) 20 MEQ CR tablet RESTART when METOLAZONE restarted 05/01/19 Active lisinopril (PRINIVIL,ZEST RIL) 20 MG tablet Take 1 tablet by mouth Daily. 30 tablet 05/07/19 Active carvedilol (COREG) 25 MG tablet Take 1 tablet by mouth Every 12 (Twelve) Hours. 60 tablet 05/07/19 20 Active clopidogrel (PLAVIX) 75 MG tablet Take 1 tablet by mouth Daily. 30 tablet 05/05/19 Active atorvastatin (LIPITOR) 40 MG tablet 12/14/19 Active benzonatate (TESSALON) 100 MG capsule Active Diclofenac Sodium (VOLTAREN) 1 % gel gel Active docusate sodium 250 MG capsule Two times a day Acti ve Etanercept (Enbrel SureClick) 50 MG/ML solution auto-injector Enbrel SureClick 50 mg/mL (1 mL) subcutaneous pen injector inject one sc once weekly every week Active folic acid (FOLVITE) 1 MG tablet folic acid 1 mg tablet take one po daily Active hydrOXYzine (ATARAX) 10 MG tablet 11/11/19 25 Active meloxicam (MOBIC) 15 MG tablet Active Morphine (MS CONTIN) 15 MG 12 hr tablet 11/22/19 Active QUEtiapine (SEROquel) 50 MG tablet 11/01/19 25 Active trospium (SANCTURA) 20 MG tablet 08/22/19 25 Active prochlorperazi ne (COMPAZINE) 5 MG tablet 11/03/19 25 Active ALPRAZolam (XANAX) 1 MG tablet Active gabapentin (NEURONTIN) 800 MG tablet Active lisinopril (PRINIVIL,ZEST RIL) 20 MG tablet Take 1 tablet by mouth Daily. Active omeprazole (priLOSEC) 40 MG capsule Active ondansetron (ZOFRAN) 8 MG tablet denied- ordering physician no longer with department Active insulin NPH (humuLIN N,novoLIN N) 100 UNIT/ML injection Inject 12 Units under the skin into the appropriate area as directed 2 (Two) Times a Day Before Meals. Active Insulin Glargine-Lixis enatide (SOLIQUA SC) Inject under the skin into the appropriate area as directed. Active irbesartan (AVAPRO) 300 MG tablet Take 1 tablet by mouth Every Night. Active gabapentin (NEURONTIN) 400 MG capsule Take 2 capsules by mouth 3 (Three) Times a Day. 02/22/19 15 025 Discontinue d(*Therapy completed) Omeprazole 20 MG tablet delayed-releas e Take 20 mg by mouth Daily. 02/22/19 15 025 Discontinue d(*Therapy completed) ondansetron (ZOFRAN) 4 MG tablet Take by mouth. 03/08/19 15 025 Discontinue d(*Therapy completed) aspirin 81 MG EC tablet Take 81 mg by mouth Daily. 025 Discontinue d(Patient Reported Not Taking) ALPRAZolam (XANAX) 0.5 MG tabletIndicati ons:Chest pain in adult Take 1 tablet by mouth At Night As Needed for Sleep. 05/04/19 20 025 Discontinue d(*Therapy completed) Active Problems Problem Noted Date Diagnosed Date [...] (nausea and vomiting) 04/07/2017 Leukocytosis 04/06/2017 05/01/2019 Encounters Date Type Department Care Team Description 12/17/2024 8:02 AM EDT Anesthesia Event [facility] OR [address] [place] [address] Marck Ferguson MD Wells, Jeremy B., MD 12/17/2024 7:45 AM EDT - 12/17/2024 9:29 AM EDT Surgery [facility] [address] [place] [address] Aman Jimenez MD PROCEDURES RN ACCESS LEFT, AORTOGRAM, RIGHT PROCEDURES RN/SFA/POP ATHERECTOMY, PROCEDURES RN/SFA/POP/AT/DP/T PT/PT/PLANTAR/ARCH ANGIOPLASTY, POPLITEAL STENT 12/17/2024 6:14 AM EDT - 12/17/2024 1:00 PM EDT Hospital Encounter [facility] OR [address] [place] [address] Aman Jimenez MD Discharge Disposition: Home or Self Care 12/17/2024 Travel 12/14/2024 8:30 AM EDT Pre-Admission Testing [facility] PREADMISSION T [address] [place] [address] 12/14/2024 Travel from Last 3 Months Family History Medical History Relation Name Comments [...] or training? Not on file Preferred Language Iraqi 12/14/2024 Comments No Sex and Gender Information [...] Mass Index 32.12 12/17/2024 7:28 AM EDT Plan of Treatment Health Maintenance Due Date Last Done Comments [...] 03/30/2018 HEMOGLOBIN A1C 11/02/2018 05/02/2018, 03/24, 10/10/2013 COVID-19 Vaccine (3 - Pfizer risk series) 11/12/2020 10/15/2020, 09/17/2020 RSV Vaccine - Adults (1 - 1- dose 75+ series) 11/28/2023 INFLUENZA VACCINE 09/21/2024 02/09/2023, , 12/15/2020, Additional history exists Pneumococcal Vaccine 50+ Completed 02/09/2023 Medical Devices Implanted Type Area Thread Singer Device Identifier Shelf Expiration Date Model / Serial / Lot Stentgr Endoprosth Viabahn Ro Hep 6f 5mm [id number] - [id number] - [id number] Implanted:Qty: 1 on 12/17/2024 by Aman Jimenez MD at [facility] Implant N/A: [employer] [id number] 05/01/2027 [id number] / [id number] / Procedures Procedure Name Priority Date/Time Associated Diagnosis Comments XR [facility] [place] PROCEDURE Routine 12/17/2024 10:05 AM EDT AORTOGRAM WITH OR WITHOUT RUNOFFS POSSIBLE STENT 12/17/2024 7:45 AM EDT PROTIME-INR Routine 12/14/2024 9:21 AM EDT BASIC METABOLIC PANEL Routine 12/14/2024 9:21 AM EDT CBC (NO DIFF) Routine 12/14/2024 9:21 AM EDT HEMOGLOBIN A1C Routine 05/02/2018 2:05 PM EDT Diabetes mellitus with no complication from Last 3 Months or Most Recently Relevant to Health Maintenance Results * XR [place] Procedure (12/17/2024 10:05 AM EDT) us Aman Jimenez MD IMG DIAGNOSTIC IMAGING ORD ERABLES Final Result * Protime-INR (12/14/2024 9:21 AM EDT) Protime 13.3 12.2 - 15.3 Seconds 12/14/2024 11:18 AM EDT [facility] INR 0.96 0.89 - 1.12 12/14/2024 11:18 AM EDT [facility] Blood Venipuncture / Unknown 12/14/2024 9:21 AM EDT 12/14/2024 11:12 AM EDT us Aman Jimenez MD LAB BLOOD ORDERABLES Final Result [facility]
[address] [place] [address], * (ABNORMAL) CBC (No Diff) (12/14/2024 9:21 AM EDT) WBC 10.97(H) 3.40 - 10.80 10*3/mm3 12/14/2024 11:27 AM EDT [facility] RBC 3.74(L) 3.77 - 5.28 10*6/mm3 12/14/2024 11:27 AM EDT [facility] Hemoglobin 12.3 12.0 - 15.9 g/dL 12/14/2024 11:27 AM EDT [facility] Hematocrit 39.5 34.0 - 46.6 % 12/14/2024 11:27 AM EDT [facility] MCV 105.6(H) 79.0 - 97.0 fL 12/14/2024 11:27 AM EDT [facility] MCH 32.9 26.6 - 33.0 pg 12/14/2024 11:27 AM EDT [facility] MCHC 31.1(L) 31.5 - 35.7 g/dL 12/14/2024 11:27 AM EDT [facility] RDW 14.8 12.3 - 15.4 % 12/14/2024 11:27 AM EDT [facility] RDW-SD 57.9(H) 37.0 - 54.0 fl 12/14/2024 11:27 AM EDT [facility] MPV 9.0 6.0 - 12.0 fL 12/14/2024 11:27 AM EDT [facility] Platelets 497(H) 140 - 450 10*3/mm3 12/14/2024 11:27 AM T [facility] Blood Venipuncture / Unknown 12/14/2024 9:21 AM EDT 12/14/2024 11:19 AM EDT us Aman Jimenez MD LAB BLOOD ORDERABLES Final Result [facility]
[address] [place] [address], * Basic Metabolic Panel (12/14/2024 9:21 AM EDT) [facility] Glucose 94 65 - 99 mg/dL 12/14/2024 11:48 AM [facility] BUN 10.4 8.0 - 23.0 mg/dL 12/14/2024 11:48 AM [facility] Creatinine 0.58 0.57 - 1.00 mg/dL 12/14/2024 11:48 AM [facility] Sodium 141 136 - 145 mmol/L 12/14/2024 11:48 AM T [facility] Potassium 4.1 3.5 - 5.2 mmol/L 12/14/2024 11:48 AM T [facility] Chloride 105 98 - 107 mmol/L 12/14/2024 11:48 AM [facility] CO2 22.6 22.0 - 29.0 mmol/L 12/14/2024 11:48 AM [facility] Calcium 9.3 8.6 - 10.5 mg/dL 12/14/2024 11:48 AM [facility] BUN/Creatinine Ratio 17.9 7.0 - 25.0 12/14/2024 11:48 AM [facility] Anion Gap 13.4 5.0 - 15.0 mmol/L 12/14/2024 11:48 AM [facility] eGFR 93.9 >60.0 mL/min/1.7 3 12/14/2024 11:48 AM [facility] Blood Venipuncture / Unknown 12/14/2024 9:21 AM EDT 12/14/2024 11:33 AM T [facility] - 12/14/2024 11:48 AM EDT [...] does not include race as a factor Aman Jimenez MD LAB BLOOD ORDERABLES Final Result [facility]
[address] [place] [address], * (ABNORMAL) Hemoglobin A1c (05/02/2018 2:05 PM EDT) Hemoglobin A1C 11.10(H) 4.80 - 5.60 % 05/02/2018 7:29 PM EDT [facility] Blood Venipuncture / Unknown 05/02/2018 2:05 PM EDT 05/02/2018 2:06 PM EDT Narrative [facility] - 05/02/2018 7:29 PM EDT The [place] [employer] recommends maintenance of Hemoglobin A1C at 7.0% or lower. Goals for Hemoglobin A1C reduction may need to be modified if hypoglycemia is a problem. Antonio Ta MD LAB BLOOD ORDERABLES Final R esult Performing Organization Address City/[facility]/ZIP Co de Phone Number [facility]
[address] [place] [address], from Last 3 Months or Most Recently [...] 2:07 AM 04/09/2017 4:11 PM Care Teams Office 365 Consultant Relationship Specialty Start Date End Date Kb Hernández DO [address] [place] [address] PCP - General Internal Medicine 04/09/23
--- OUTSIDE RECORDS SUMMARY | 2024-12-28 16:23 | XMS_ITS | Encounter Summary ---
Author Organization [facility] Address [address] [place] [address] Care Team Providers Care Assistant Professor Of Religion Name Role Phone Kb Hernández Primary Care Provider + Encounter Details Date Type Department Care Team (Latest Contact Info) Description 12/17/2024 Travel Social History Tobacco Use Types Packs/Day Years [...] or training? Not on file Preferred Language Palestinian 12/14/2024 Comments No Sex and Gender Information Value Date Recorded Sex Assigned at Not on file Legal Sex Female 11:22 AM EDT Gender Identity Not on file Sexual Orientation Not on file documented as of this encounter Functional Status * Question Answer Date of Assessment Author 1. Wish to be (Past 1 Month) No 025 7:29 AM EDT Anh Baltazar, RN 2. Non-Specific Active Suici vinay Thoughts (Past 1 Month) No 12/17/2024 7:29 AM EDT Jeni Baltazar RN * Calculated C-SSRS Risk Score (Lifetime/Recent) Answer Date of Assessment Author No Risk Indicated 12/17/2024 7:29 AM EDT Anh Baltazar RN * Leona Suicide Severity Rating Scale (Screener/Recent Self-Report) Question Answer Date of Assessment Author 6. Suicidal Behavior (Lifetime) No 7:29 AM EDT Anh Baltazar RN documented as of this encounter Plan of Treatment Not on file documented as of this encounter Visit Diagnoses Not on filedocumented in this encounter Care Teams Assistant Professor Of Religion Relationship Specialty Start Date End Date Kb Hernández DO [address] [place] [address] PCP - General Internal Medicine 04/09/23 documented as of this encounter
--- OUTSIDE RECORDS SUMMARY | 2024-12-28 16:23 | XMS_ITS | Encounter Summary ---
Author Organization [facility] Address [address] [place] [address] Care Team Providers Care Weight Shifter Name Role Phone Kb Hernández DO Primary Care Provider + Encounter Details Date Type Department Care Team (Latest Contact Info) Description 12/14/2024 Travel Social History Tobacco Use Types Packs/Day [...] or training? Not on file Preferred Language Welsh 12/14/2024 Comments No Sex and Gender Information Value Date Recorded Sex Assigned at Not on file Legal Sex Female 11:22 AM EDT Gender Identity Not on file Sexual Orientation Not on file documented as of this encounter Plan of Treatment Not on file documented as of this encounter Visit Diagnoses Not on filedocumented in this encounter Care Teams Weight Shifter Relationship Specialty Start Date End Date Kb Hernández DO [address] [place] [address] PCP - General Internal Medicine 04/09/23 documented as of this encounter
--- NOTE | 2024-12-28 16:27 | CT_ITS ---
PROCEDURE INFORMATION: Exam: CT Chest With Contrast; Diagnostic Exam date and time: 12/28/2024 6:35 PM Age: 74 years old Clinical indication: Shortness of breath and other: Rales TECHNIQUE: Imaging protocol: Diagnostic computed tomography of the chest with contrast. Radiation optimization: All CT scans at this facility use at least one of these dose optimization techniques: automated exposure control; mA and/or kV adjustment per patient size (includes targeted exams where dose is matched to clinical indication); or iterative reconstruction. Contrast material: ISOVUE; Contrast volume: 75 ml; Contrast route: IV; COMPARISON: CT ANGIO CHEST PE PROTOCOL 11/14/2024 11:04 AM FINDINGS: Lungs: Prominent interstitial markings of the lung bases with airspace opacities and low volume pleural effusions suggest moderate pulmonary edema. Pleural spaces: See Lungs finding. Heart: Unremarkable. No cardiomegaly. No pericardial effusion. Coronary arteries: Moderate three-vessel calcific atherosclerotic disease of the coronary arteries. Lymph nodes: Prominent mediastinal and hilar lymph nodes are likely reactive. Vasculature: Moderate mixed calcific and noncalcified atherosclerotic disease of the thoracic aorta resulting in mild stenosis and plaque ulcers. 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 Moderate mixed calcific and noncalcified atherosclerotic disease of the left subclavian artery resulting in moderate stenosis. Gallbladder and biliary ducts: There are surgical clips within the gallbladder fossa. Kidneys: Left renal Bosniak 1 cystic lesion that is homogeneous and fluid density (-9-20 HU), no septations or calcifications, having florence smooth and thin. Measurement is 3.7 cm. No follow-up recommended. Bones/joints: Postsurgical changes compatible with posterior fusion with transpedicular screws, vertical stabilizing bars, and intervertebral disc spacers between levels T7 at the lower end of examination. Multiple chronic right posterior rib fractures. Soft tissues: Unremarkable. IMPRESSION: 1. Prominent interstitial markings of the lung bases with airspace opacities and low volume pleural effusions suggest moderate pulmonary edema. 2. Moderate mixed calcific and noncalcified atherosclerotic disease of the thoracic aorta resulting in mild stenosis and plaque ulcers. 3. 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 4. Moderate mixed calcific and noncalcified atherosclerotic disease of the left subclavian artery resulting in moderate stenosis. COMMENTS: Consistent with the [employer]'s Incidental Findings Committee white paper (J Am Fede Radiol 2018): Any incidental renal lesion less than 1 cm or classified as too small to characterize, or any incidental cystic renal lesion characterized as simple-appearing, is likely benign. No follow-up imaging is recommended for these lesions per consensus recommendations based on imaging criteria.
--- NOTE | 2024-12-28 16:34 | ED_ITS ---
<Statement entered by Gayathri Karimi DO - 12/29/24 00:14> I was consulted by the VERONICA, and we discussed the complexity of problems being addressed. I approve the treatment and management plan for this patient's care in the emergency department, thus performing a substantial portion of the medical decision making. Gayathri Karimi DO Discharge Plan Disposition Patient Disposition: Home, Self-Care Prescriptions Prescriptions: No Action morphine 15 mg tablet extended release 30 mg PO DAILY Qty: 30 0RF alendronate 70 mg tablet 70 mg PO WEEKLY Qty: 10 0RF (DME) blood pressure monitor Kit See Rx Instructions .Route Qty: 1 0RF Rx Instructions: As directed clopidogrel 75 mg tablet 75 mg PO DAILY cholecalciferol (vitamin D3) 1,250 mcg (50,000 unit) capsule 1,250 mcg PO WEEKLY Qty: 10 0RF (DME) Accu-Chek Guide test strips Strip See Rx Instructions .ROUTE .COMPLEX Qty: 100 6RF Dose Instruction: CHECK FASTING BLOOD SUGAR ONCE DAILY NEEDED Rx Instructions: CHECK FASTING BLOOD SUGAR ONCE DAILY NEEDED atorvastatin 40 mg tablet 40 mg PO DAILY Qty: 90 3RF oxycodone-acetaminophen 10-325 mg tablet 1 tab PO QIDP PRN (Reason: Moderate Pain (Scale Score 5-6)) gabapentin 600 mg tablet 600 mg PO TID prochlorperazine maleate 5 mg tablet 5 mg PO TIDP PRN (Reason: anxiety or nausea) baclofen 10 mg tablet 10 mg PO Q8HP PRN (Reason: muscle spasm) paroxetine HCl 20 mg tablet 60 mg PO HS hydroxyzine HCl 10 mg tablet 10 mg PO BIDP PRN (Reason: Anxiety) insulin asp prt-insulin aspart [Novolog Mix 70-30 U-100 Insuln] 100 unit/mL (70-30) solution 12 unit SQ DAILY quetiapine 50 mg tablet 50 mg PO HS Soliqua 100/33 100 unit-33 mcg/mL insulin pen 32 unit SQ DAILY Referrals Follow up/Referrals: Kb Hernández DO [Primary Care Provider, Family Practice] - See instructions Clinical Impressions Clinical Impression: COPD (chronic obstructive pulmonary disease) with chronic bronchitis, Chest congestion, CHF (congestive heart failure) Print Language Print Language: Tamazight Discharge ED Provider: Gayathri Karimi General Adult HPI General Chief complaint: Upper Respiratory Infection Stated complaint: Sent per Kb Hernández for rattling in chest Time Seen by Provider: 12/28/24 16:17 Mode of Arrival: Wheelchair Source of Information: Patient and Spouse Description of Symptoms (Recalled from ER Triage Doc. by RN): Per home health nurse patient presented this morning with crackles in her lungs. Patient is being seen by home health for a worsening wound on her hip. History of Present Illness HPI narrative: 74-year-old female presents to the ED today for complaint of rattling and crackles in her chest. Home health saw her earlier today for a worsening decubitus on her hip and said she needed to be seen because she had crackles in her lungs. Patient has been coughing up sputum according to her . Patient has no fevers or chills. No abdominal pain. No other symptoms. Patient does have history of STEMI, decubitus ulcers, CHF, CVA, CAD, hypertension, reflux, neuropathy, hypertension, diabetic, hemiplegia affecting right side. Related Data Home Medications ?Medication ?Instructions ?Recorded ?Confirmed oxycodone-acetaminophen 10 mg-325 1 tab PO QIDP PRN Mo derate Pain 04/02/23 11/22/24 mg tablet (Scale Score 5-6) baclofen 10 mg tablet 10 mg PO Q8HP PRN muscle spa sm 11/14/24 11/22/24 gabapentin 600 mg tablet 600 mg PO TID 11/14/2411/22 hydroxyzine HCl 10 mg tablet 10 mg PO BIDP PRN Anxiety 11/14/24 11/22/24 insulin aspar prt-insulin aspart 12 unit SQ DAILY 10/2311/22/24 100 unit/mL (70-30) subcutaneous soln (Novolog Mix 70-30 U-100 Insuln) insulin glargine 100 32 unit SQ DAILY 11/14/24 unit-lixisenatide 33 mcg/mL subcutaneous pen (Soliqua 100/33) paroxetine HCl 20 mg tablet 60 mg PO HS 11/14/2411/22 prochlorperazine maleate 5 mg 5 mg PO TIDP PRN anxiety or nausea 11/14/24 11/22/24 tablet quetiapine 50 mg tablet 50 mg PO HS 11/14/24 5 clopidogrel 75 mg tablet 75 mg PO DAILY 11/22/2404/17 Previous Rx's ?Medication ?Instructions ?Recorded morphine 15 mg tablet,extended 30 mg (2 x 15 mg) PO DA ANGELITA #30 tabs 03/30/24 release cholecalciferol (vitamin D3) 1,250 1,250 mcg PO WEEKLY #10 caps 05/15/ mcg (50,000 unit) capsule blood pressure monitor #1 ea 08/16/24 alendronate 70 mg tablet 70 mg PO WEEKLY #10 tabs 04/17 blood sugar diagnostic (Accu-Chek #100 ea 12/03/24 Guide test strips) atorvastatin 40 mg tablet 40 mg PO DAILY #90 tabs 11/22 05/15 Allergies Allergy/AdvReac Type Severity Reaction Status Date / Time cefuroxime (From CEFTIN) Allergy Mild Unknown Verified 11/22/24 14:22 allergy reaction codeine Allergy Unknown Verified 11/22/24 14:22 allergy reaction [facility] Disclaimer: The information contained in this section may have been updated after the patient was seen, as this information can be updated by other users. Medical History Myocardial injury NSTEMI (non-ST elevated myocardial infarction) Visit for wound care Hospital discharge follow-up Decubitus skin ulcer CHF exacerbation CVA (cerebral vascular accident) Pain due to onychomycosis of toenails of both feet Hip replacement planned Coronary artery disease Renal cyst, left Chest pain HTN (hypertension) Abnormal electrocardiography Gastroesophageal reflux disease Dyspnea Chest pain Neuropathy, cervical (radicular) Left shoulder strain Chronic prescription opiate use Declining functional status Hypertensive urgency Callus of foot Onychomycosis Diabetic foot Chronic, continuous use of opioids Hemiplegia affecting right dominant side Gastroenteritis Bronchitis Surgical History History of knee replacement History of back surgery Social History Smoking Status: Current every day smoker tobacco type: cigarettes packs per day: 1 alcohol intake: former substance use type: denies use current occupational status: retired and disabled Travel in the last 8 weeks?: None household members: spouse housing: other caffeine: No Have you lived/traveled outside [place] in past 30 days?: No Contact w/someone who lives/traveled outside [place] past 30 days?: No Exposure to someone with infectious disease in past 14 days?: No Do you have a fever (greater than 100.4 F or 38 C)?: No Have you tested positive for COVID-19?: No Exposed to someone with COVID-19 in past 14 days?: No Do you have a sore throat?: No Do you have a cough?: No Do you have any weakness?: No Do you have any diarrhea?: No Are you experiencing any unusual bleeding?: No Do you have any muscle aches/pain?: No Do you have any abdominal pain?: No Are you experiencing loss of taste or smell?: No Other Medical History Have you received the Flu Vaccine for this season: No Have you received the Pneumonia Vaccine: Yes ROS Obtained: Yes Systems reviewed as appropriate & no additional complaints except as documented Constitutional Constitutional: Reports as per HPI Physical Exam General General appearance: alert Head Head exam: normocephalic Eye Eye exam: Present PERRL and EOMI ENT ENT exam: Present normal oropharynx and mucous membranes moist Neck Neck exam: Present full ROM and trachea midline Respiratory Respiratory exam: Present wheezes and other (Crackles and rales) Cardiovascular Cardiovascular exam: Present regular rate, normal rhythm, normal heart sounds, +S1 and +S2 Abdominal Exam Abdominal exam: Present soft Extremities Exam Extremities exam: Present edema (Mild) Neurological Exam Neurological exam: Present alert and oriented X3 Skin Skin exam: Present warm, dry and other (Decubitus ulcer on left hip) Medical Decision Making Medical Records Screening: Per USPSTF and CDC recommendations, given the prevalence of disease in our region, it is our hospital?s policy to screen for HIV and viral Hepatitis for all patients aged 18 and over and those with ongoing risk factors. Lm Inquiry Pt receiving controlled substance: No Lm was queried for this patient: No Vital Signs: 12/28/24 16:25 12/28/24 17:00 12/28/24 17:30 Temperature 98.3 F Temperature Source Oral Pulse Rate 66 58 L Pulse Rate [Radial] 68 Respiratory Rate 18 19 17 Blood Pressure 187/59 H 173/65 H Blood Pressure [Right Arm] 224/108 H Blood Pressure Mean [Right Arm] 146 Blood Pressure Source [Right Arm] Automatic Cuff Blood Pressure Position [Right Arm] Supine 02 Sat by Pulse Oximetry 97 98 100 Oxygen Delivery Method Room Air 12/28/24 17:31 12/28/24 18:01 Temperature Temperature Source Pulse Rate 63 58 L Pulse Rate [Radial] Respiratory Rate 17 15 Blood Pressure 173/65 H 167/59 H Blood Pressure [Right Arm] Blood Pressure Mean [Right Arm] Blood Pressure Source [Right Arm] Blood Pressure Position [Right Arm] 02 Sat by Pulse Oximetry 99 99 Oxygen Delivery Method Lab Data Lab Results 12/28/24 16:40: WBC 11.2 H, RBC 3.46 L, Hgb 11.2 L, Hct 36.0 L, MCV 104.0 H, MCH 32.4 H, MCHC 31.1 L, RDW 14.3, Plt Count 508 H, MPV 9.2, Neut % (Auto) 71.6, Lymph % (Auto) 18.6, Williamson % (Auto) 7.0, Eos % (Auto) 1.3, Baso % (Auto) 1.1, N eut # (Auto) 8.0 H, Lymph # (Auto) 2.1, Williamson # (Auto) 0.8, Eos # (Auto) 0.2, Baso # (Auto) 0.1, ESR 29, PT 11.4, INR 1.03, APTT 26.7, Sodium 135 L, Potassium 4.1, Chloride 100, Carbon Dioxide 29, Anion Gap 10.1, BUN 13, Creatinine 0.60, Estimated Creat Clear 62, Estimated GFR 97, Est GFR ( Amer) 118, Glucose 216 H, Lactate 1.8, Calcium 9.2, Total Bilirubin 0.5, AST 17, ALT 12, Alkaline Phosphatase 140 H, Total Creatine Kinase 36, C-Reactive Protein 49.3 H, NT-Pro-B Natriuret Pep 1760 H, Total Protein 6.7, Albumin 3.4 L, Globulin 3.3 H, A lbumin/Globulin Ratio 1.0 L 12/28/24 16:46: Chlamy pneumoniae PCR Not detected, Adenovirus (PCR) Not detected, B. pertussis DNA (PCR) Not detected, Coronavirus OC43 (PCR) Not detected, Coronavirus HKU1 (PCR) Not detected, Coronavirus 229E (PCR) Not detected, SARS-CoV-2 (PCR) Not detected, Coronavirus NL63 (PCR) Not detected, Human Metapneumovir PCR Not detected, Influenza A (H1) PCR Not detected, Influ A (H1N1/09) PCR Not detected, Influenza A (H3) PCR Not detected, Influenza Type A (PCR) Not detected, Influenza Type B (PCR) Not detected, M. pneumoniae (PCR) Not detected, Parainfluenza 1 (PCR) Not detected, Parainfluenza 2 (PCR) Not detected, Parainfluenza 3 (PCR) Not detected, Parainfluenza 4 (PCR) Not detected, RSV (PCR) Not detected, Entero/Rhino (PCR) Not detected 12/28/24 18:50: Urine Color Yellow, Urine Appearance Clear, Urine pH 5.5, Ur Specific [place] 1.020, Urine Protein Trace, Urine Glucose (UA) Trace, Urine Ketones Negative, Urine Blood 1+ A, Urine Nitrate Negative, Urine Bilirubin Negative, Urine Urobilinogen 1.0, Ur Leukocyte Esterase Negative, Urine RBC 5- 10, Urine WBC None, Ur Squamous Epith Cells 5-10, Urine Bacteria None 12/28/24 16:40 12/28/24 16:40 Orders (Tests/Meds): ED MEDICATIONS Generic Name Dose Route Start Last Admin Trade Name Freq PRN Reason Stop Dose Admin Sodium Chloride 10 ml 12/28/24 18:45 12/28/24 18:45 Sodium Chloride 0.9% 10ml Syr (Rad Only) IV 01/27/25 18:44 10 ml NEEDED PRN Administration Maintain IV Site Discontinued Medications Generic Name Dose Route Start Last Admin Trade Name Freq PRN Reason Stop Dose Admin Albuterol/Ipratropium 9 ml 12/28/24 16:31 12/28/24 16:56 Ipratropium/Albuterol 3 Ml Neb IH 12/28/24 16:32 9 ml ONCE ONE Administration Dexamethasone Sodium Phosphate 8 mg 12/28/24 16:31 12/28/24 16:56 Dexamethasone 4mg/Ml 1ml Vial IV 12/28/24 16:32 8 mg ONCE ONE Administration Azithromycin 500 mg/ Sodium 250 mls @ 250 mls/hr 12/28/24 16:27 12/28/24 18:04 Chloride IV 12/28/24 16:28 250 mls/hr ONCE ONE Administration Magnesium Sulfate 2 gm in 50 mls @ 50 mls/hr 12/28/24 16:34 12/28/24 18:03 Magnesium Sulfate 2gm/50ml Premix IV 12/28/24 17:33 Infused ONCE ONE Infusion Iopamidol 75 ml 12/28/24 18:45 12/28/24 18:45 Iopamidol-370 (76%);100ml Bottle IV 12/28/24 18:46 75 ml ONCE ONE Administration ORDERS Category Date Time Status CT chest w con Stat Cat Scan 12/28/24 16:27 Completed Activated Partial Thrombo Time Stat Lab 12/28/24 16:40 Completed BNP [NT Pro Brain Natriuretic Pep.] Stat Lab 12/28/24 16:40 Completed C-Reactive Protein Stat Lab 12/28/24 16:40 Completed Complete Blood Count Auto Diff Stat Lab 12/28/24 16:40 Completed Comprehensive Metabolic Panel Stat Lab 12/28/24 16:40 Completed Creatine Kinase Stat Lab 12/28/24 16:40 Completed Erythrocyte Sedimentation Rate Stat Lab 12/28/24 16:40 Completed Full Resp Panel w/COVID ([facility]) Routine Lab 12/28/24 16:46 Completed Lactic Acid Stat Lab 12/28/24 16:40 Completed Prothrombin Time INR Stat Lab 12/28/24 16:40 Completed Urinalysis and Microscopic Stat Lab 12/28/24 18:50 Completed Blood Culture Stat Micro 12/28/24 17:27 Received Medical Decision Narrative: patient is a 74-year-old female presenting to the emergency department for evaluation of crackles in lungs. Patient is hemodynamically stable and nontoxic-appearing upon arrival, afebrile. Differential diagnosis includes pneumonia, COPD, CHF exacerbation. Workup will be conducted with hematologic labs, specific imaging, provocative tests. Initial inventions include crystalloid bolus, analgesics, antibiotics. Initial workup reviewed by [place] hematologic labs are remarkable for white count was 11.2, hemoglobin was 11.2 hematocrit 36, PT was 1.4 INR 1.03, sodium was 135, potassium 4.1, lactate was 1.8 BNP was 1760 previous BNP was over 6000 so that has improved. Patient's urine was negative. patient respiratory panel was also negative. Imaging showed prominent interstitial markings and opacities with some pulmonary edema. See the actual read for radiology report. I talked to Claude, [facility] medicine who accepted the patient in admission for CHF and COPD exacerbation. Critical Care Critical Care Time Critical Care Time: No
[2024-12-28 16:54] LABS: Hematocrit 36.0 % (37.0-47.0); Hemoglobin 11.2 g/dL (12.2-16.2); Immature Granulocytes % 0.4 %; Mean Corpuscular HGB Conc 31.1 g/dL (31.8-35.4); Mean Corpuscular Hemoglobin 32.4 pg (27.0-31.2); Mean Corpuscular Volume 104.0 fl (81-99); Nucleated Red Blood Cells % 0 %; Platelet Count 508 K/mm3 (142-424); Red Blood Count 3.46 M/mm3 (4.20-5.40); Red Cell Distribution Width-SD 54.4 fL; White Blood Count 11.2 K/mm3 (4.8-10.8)
[2024-12-28 16:54] LABS: Adenovirus,PCR Not Detected (NotDetected); Chlamydophila Pneumoniae, PCR Not Detected (NotDetected); Coronavirus 19, PCR Not Detected (NotDetected); Coronovirus HKU1,PCR Not Detected (NotDetected); Influenza A, PCR Not Detected (NotDetected); Influenza AH1, 2009 Not Detected (NotDetected); Influenza AH1, PCR Not Detected (NotDetected); Influenza AH3,PCR Not Detected (NotDetected); Influenza B, PCR Not Detected (NotDetected); Mycoplasma Pneumoniae, PCR Not Detected (NotDetected); Parainfluenza 1, PCR Not Detected (NotDetected); Parainfluenza 2, PCR Not Detected (NotDetected); Parainfluenza 3, PCR Not Detected (NotDetected); Parainfluenza 4, PCR Not Detected (NotDetected)
[2024-12-28] MEDS: MAGNESIUM SULFATE IN WATER 2 GM/50 ML PIGGYBACK IV (16:56)
[2024-12-28] MEDS: DEXAMETHASONE 4MG/ML 1ML VIAL 8 MG IV (16:56)
[2024-12-28] MEDS: IPRATROPIUM/ALBUTEROL 3 ML NEB 9 ML IH (16:56)
--- NOTE | 2024-12-28 16:56 | ECG_ITS ---
APPROVED REPORT Exam: Resting ECG HR:56 bpm ECG Measurements Heart Rate 56 AXES IA 160 P 38 QRSd 146 QRS -45 QT 480 T 136 QTc 472 Conclusion SINUS BRADYCARDIA LEFT AXIS DEVIATION [QRS AXIS < -30] LEFT BUNDLE BRANCH BLOCK [120+ ms QRS DURATION, 80+ ms Q/S IN V1/V2, 85+ ms R IN I/aVL/V5/V6] ABNORMAL ECG UNCONFIRMED REPORT Electronically signed by : VALERIE GONZALEZ, 12/30/2024 02:19:31
[2024-12-28 17:04] LABS: Activated Partial Thrombo Time 26.7 seconds (22.8-30.6); INR 1.03 (0.9-1.1); Prothrombin Time 11.4 seconds (10.1-12.5)
[2024-12-28] MEDS: AZITHROMYCIN 500 MG in 0.9 % SODIUM CHLORIDE 250 ML 250 MG IV (18:04)
[2024-12-28 18:19] LABS: Alanine Aminotransferase 12 U/L (12-78); Albumin Level 3.4 g/dl (3.5-5.0); Albumin/Globulin Ratio 1.0 (1.1-1.8); Alkaline Phosphatase 140 U/L (38-126); Anion Gap 10.1 mEq/L (5-15); Aspartate Amino Transferase 17 U/L (14-36); Bilirubin,Total 0.5 mg/dl (0.2-1.3); Blood Urea Nitrogen 13 mg/dl (7-17); Calcium 9.2 mg/dl (8.4-10.2); Carbon Dioxide 29 mmol/L (22.0-30.0); Chloride 100 mmol/L (98-107); Creatine Kinase 36 U/L (30-135); Creatinine Clearance Estimated 62 mL/min (50-200); Creatinine,Serum 0.60 mg/dl (0.52-1.04); Estimated Glomerular Filt Rate 97 ml/min (>60); GFR (African American) 118 ML/MIN (>60); Globulin 3.3 g/dL (1.3-3.2); Glucose 216 mg/dl (74-100); Potassium 4.1 mmoL/L (3.5-5.1); Sodium 135 mmol/L (136-145); Total Protein,Serum 6.7 g/dl (6.3-8.2)
[2024-12-28 18:24] LABS: C-Reactive Protein 49.3 mg/L (0-4)
[2024-12-28] MEDS: IOPAMIDOL-370 (76%);100ML BOTTLE 75 ML IV (18:45)
[2024-12-28] MEDS: SODIUM CHLORIDE 0.9% 10ML SYR (RAD ONLY) 10 ML IV (18:45)
[2024-12-28 18:54] LABS: Microscopic, Urine URINE MICROSCOPIC (MICROSCOPIC)
[2024-12-28 19:02] LABS: Bilirubin,Urine Negative (Negative); Color,Urine YELLOW (Yellow); Glucose,Urine (UA) TRACE (Negative); Ketones,Urine Negative (Negative); Leukocyte Esterase,Urine Negative (Negative); PH,Urine 5.5 (5.0-8.5); Protein,Urine TRACE (Negative); Specific Gravity, Urine 1.020 (1.005-1.030); Urobilinogen,Urine 1.0 EU/dl (0.2)
[2024-12-28 20:07] LABS: NT Pro Brain Natriuretic Pep. 1760 pg/mL (0-450)
--- NOTE | 2024-12-28 20:42 | PC.NURSE ---
report called to Gayathri LEE [id number]
--- NOTE | 2024-12-28 21:04 | PC.NURSE ---
Patient arrived to floor via stretcher form ED at 21:00.
[2024-12-28] MEDS: FUROSEMIDE 40MG/4ML VIAL 40 MG IV (21:31)
--- NOTE | 2024-12-28 21:49 | P.HP_ITS ---
<Statement entered by Casa Ibanez MD - 12/29/24 14:15> Agree with the plan of care as outlined by the TRANSLATOR AND INTERPRETER. History of Present Illness *Admission Date: 12/28/24 *Reason for visit:: Abnormal lung sounds *History of present illness: This is a 74-year-old female who has a past medical history significant, left renal cyst, hypertension, GERD, neuropathy, diabetic foot ulcer, and bronchitis who presents from home due to 2 abnormal lung sounds and worsening of decubitus wound to hip. Was, she presented to the emergency room for evaluation. While in the emergency room, again of the chest revealed prominent and decidual markings of the lung bases with airspace opacities and low volume. 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 As a result of these findings, patient has been admitted for further management. During my evaluation of the patient, she did have a chief complaint of shortness of air. She was denying any chest pain, lightheadedness, dizziness, fever, chills, rigors, nausea, vomiting, PND, orthopnea, or diarrhea. Additional pertinent vitals obtained include a white blood cell count 11.2, red blood cell count 3.46, hemoglobin 11.2, hematocrit 36, platelet count 508, sodium 135, blood glucose of 216, alkaline phosphate 140, C-reactive protein of 49.3, and BNP of 1760. EKG revealed a sinus rhythm with a left branch block, left axis deviation, QTc of 472, possible left ventricular hypertrophy, no active STEMI PFSH [facility] Disclaimer: The information contained in this section may have been updated after the patient was seen, as this information can be updated by other users. Medical History Myocardial injury NSTEMI (non-ST elevated myocardial infarction) Visit for wound care Hospital discharge follow-up Decubitus skin ulcer CHF exacerbation CVA (cerebral vascular accident) Pain due to onychomycosis of toenails of both feet Hip replacement planned Coronary artery disease Renal cyst, left Chest pain HTN (hypertension) Abnormal electrocardiography Gastroesophageal reflux disease Dyspnea Chest pain Neuropathy, cervical (radicular) Left shoulder strain Chronic prescription opiate use Declining functional status Hypertensive urgency Callus of foot Onychomycosis Diabetic foot Chronic, continuous use of opioids Hemiplegia affecting right dominant side Gastroenteritis Bronchitis Surgical History History of knee replacement History of back surgery Social History Smoking Status: Current every day smoker tobacco type: cigarettes packs per day: 1 alcohol intake: former substance use type: denies use current occupational status: retired and disabled Travel in the last 8 weeks?: None household members: spouse housing: other caffeine: No Have you lived/traveled outside [place] in past 30 days?: No Contact w/someone who lives/traveled outside [place] past 30 days?: No Exposure to someone with infectious disease in past 14 days?: No Do you have a fever (greater than 100.4 F or 38 C)?: No Have you tested positive for COVID-19?: No Exposed to someone with COVID-19 in past 14 days?: No Do you have a sore throat?: No Do you have a cough?: No Do you have any weakness?: No Do you have any diarrhea?: No Are you experiencing any unusual bleeding?: No Do you have any muscle aches/pain?: No Do you have any abdominal pain?: No Are you experiencing loss of taste or smell?: No Other Medical History Have you received the Flu Vaccine for this season: No Have you received the Pneumonia Vaccine: Yes Review of Systems Review of Systems Review of systems:: pertinent systems reviewed and negative unless documented below Constitutional Constitutional: Reports system reviewed and no additional complaints, except as documented Eyes Eyes: Reports system reviewed and no additional complaints, except as documented ENT Ears, Nose, Mouth, and Throat: Reports system reviewed and no additional complaints, except as documented *Cardiovascular Cardiovascular: Reports system reviewed and no additional complaints, except as documented and Reports dyspnea *Respiratory Respiratory: Reports dyspnea *Gastrointestinal Gastrointestinal: Reports system reviewed and no additional complaints, except as documented *Genitourinary Genitourinary: Reports system reviewed and no additional complaints, except as documented *Musculoskeletal Musculoskeletal: Reports atrophy, Reports limited range of motion and Reports muscle weakness Integumentary/Breasts Skin/Breast: Reports alopecia and Reports non-healing lesions *Neurologic Neurologic: Reports system reviewed and no additional complaints, except as documented Psychiatric Psychiatric: Reports system reviewed and no additional complaints, except as documented Endocrine Endocrine: Reports system reviewed and no additional complaints, except as documented Hematologic/Lymphatic Hematologic/Lymphatic: Reports system reviewed and no additional complaints, except as documented Allergic/Immunologic Allergic/Immunologic: Reports system reviewed and no additional complaints, except as documented Meds Home Medications and Allergies Home Medications ?Medication ?Instructions ?Recorded ?Confirmed ?Type oxycodone-acetaminophen 10 mg-325 1 tab PO QIDP PRN Mo derate Pain 04/02/23 12/28/24 History mg tablet (Scale Score 5-6) morphine 15 mg tablet,extended 30 mg (2 x 15 mg) PO DA ANGELITA #30 tabs 03/30/24 12/28/24 Rx release cholecalciferol (vitamin D3) 1,250 1,250 mcg PO WEEKLY #10 caps 05/15/24 12/28/24 Rx mcg (50,000 unit) capsule blood pressure monitor #1 ea 08/16/24 12/28/24 Rx baclofen 10 mg tablet 10 mg PO Q8HP PRN muscle spa sm 11/14/24 12/28/24 History gabapentin 600 mg tablet 600 mg PO TID 11/14/2412/28 History hydroxyzine HCl 10 mg tablet 10 mg PO BIDP PRN Anxiety 11/14/24 12/28/24 History insulin aspar prt-insulin aspart 12 unit SQ DAILY 10/2312/28/24 History 100 unit/mL (70-30) subcutaneous soln (Novolog Mix 70-30 U-100 Insuln) insulin glargine 100 32 unit SQ DAILY 11/14/24 History unit-lixisenatide 33 mcg/mL subcutaneous pen (Soliqua 100/33) paroxetine HCl 20 mg tablet 60 mg PO HS 11/14/2412/28 History prochlorperazine maleate 5 mg 5 mg PO TIDP PRN anxiety or nausea 11/14/24 12/28/24 History tablet quetiapine 50 mg tablet 50 mg PO HS 11/14/24 5 History alendronate 70 mg tablet 70 mg PO WEEKLY #10 tabs 04/1712/28/24 Rx clopidogrel 75 mg tablet 75 mg PO DAILY 11/22/2409/14 History blood sugar diagnostic (Accu-Chek #100 ea 12/03/2409/14 Rx Guide test strips) atorvastatin 40 mg tablet 40 mg PO DAILY #90 tabs 11/2212/28/24 Rx New Prescriptions to Start Prescriptions: Allergies Allergy/AdvReac Type Severity Reaction Status Date / Time cefuroxime (From CEFTIN) Allergy Mild Unknown Verified 11/22/24 14:22 allergy reaction codeine Allergy Unknown Verified 11/22/24 14:22 allergy reaction Exam Data for Last 24 hours Vital signs and Labs for Last 24 Hours: Temp Pulse Resp BP Pulse Ox O2 Del Method 97.9 F 65 17 142/81 H 98 Room Air 12/28/24 21:09 12/28/24 21:09 12/28/24 21:09 12/28/24 21:09 12/28/24 21:09 12/28/24 21:09 Laboratory Results - last 24 hr 12/28/24 16:40: WBC 11.2 H, RBC 3.46 L, Hgb 11.2 L, Hct 36.0 L, MCV 104.0 H, MCH 32.4 H, MCHC 31.1 L, RDW 14.3, Plt Count 508 H, MPV 9.2, Neut % (Auto) 71.6, Lymph % (Auto) 18.6, [place] % (Auto) 7.0, Eos % (Auto) 1.3, Baso % (Auto) 1.1, Neut # (Auto) 8.0 H, Lymph # (Auto) 2.1, [place] # (Auto) 0.8, Eos # (Auto) 0.2, Baso # (Auto) 0.1, ESR 29, PT 11.4, INR 1.03, APTT 26.7, Sodium 135 L, Potassium 4.1, Chloride 100, Carbon Dioxide 29, Anion Gap 10.1, BUN 13, Creatinine 0.60, Estimated Creat Clear 62, Estimated GFR 97, Est GFR ( Amer) 118, Glucose 216 H, Lactate 1.8, Calcium 9.2, Total Bilirubin 0.5, AST 17, ALT 12, Alkaline Phosphatase 140 H, Total Creatine Kinase 36, C-Reactive Protein 49.3 H, NT-Pro-B Natriuret Pep 1760 H, Total Protein 6.7, Albumin 3.4 L, Globulin 3.3 H, Albumin/Globulin Ratio 1.0 L 12/28/24 16:46: Chlamy pneumoniae PCR Not detected, Adenovirus (PCR) Not detected, B. pertussis DNA (PCR) Not detected, Coronavirus OC43 (PCR) Not detected, Coronavirus HKU1 (PCR) Not detected, Coronavirus 229E (PCR) Not detected, SARS-CoV-2 (PCR) Not detected, Coronavirus NL63 (PCR) Not detected, Human Metapneumovir PCR Not detected, Influenza A (H1) PCR Not detected, Influ A (H1N1/09) PCR Not detected, Influenza A (H3) PCR Not detected, Influenza Type A (PCR) Not detected, Influenza Type B (PCR) Not detected, M. pneumoniae (PCR) Not detected, Parainfluenza 1 (PCR) Not detected, Parainfluenza 2 (PCR) Not detected, Parainfluenza 3 (PCR) Not detected, Parainfluenza 4 (PCR) Not det ected, RSV (PCR) Not detected, Entero/Rhino (PCR) Not detected 12/28/24 18:50: Urine Color Yellow, Urine Appearance Clear, Urine pH 5.5, Ur Specific [place] 1.020, Urine Protein Trace, Urine Glucose (UA) Trace, Urine Ketones Negative, Urine Blood 1+ A, Urine Nitrate Negative, Urine Bilirubin Negative, Urine Urobilinogen 1.0, Ur Leukocyte Esterase Negative, Urine RBC 5- 10, Urine WBC None, Ur Squamous Epith Cells 5-10, Urine Bacteria None I & O for Last 24 hours: Intake & Output 12/25/24 12/26/24 12/27/24 12/28/24 23:59 23:59 23:59 23:59 Intake Total 300 / 300 Balance 300 / 300 Weight 71.866 kg Constitutional Constitutional: no acute distress and cooperative *Routine HEENT Exam Head: Present normocephalic and atraumatic Eye: Present EOMI and PERRL ENT: Present mucous membranes moist *Routine Neck Exam Neck: Present supple, full ROM and trachea midline *Routine Respiratory Exam Respiratory: Present wheezes, crackles, diminished air movement, able to speak in complete sentences and symmetric chest movement *Routine Cardiovascular Exam Cardiovascular: Present RRR, Normal S1, Normal S2 and bradycardia *Routine Abdominal Exam Abdominal: Present soft and normoactive bowel sounds *Routine Rectal Exam Rectal:: deferred *Routine Genitalia Exam Genitalia:: deferred *Routine Extremities Exam Extremities: Present normal capillary refill *Routine Skin Exam Skin: Present warm and wounds *Routine Neurological Exam Neurological: Present alert, oriented X3 and CN II-XII intact Routine Psychiatric Exam Psychiatric: Present normal affect, normal thought process, cooperative, good insight and good judgment H&P: Result Impressions 74-year-old female presents to the emergency room with expiratory wheezing and CTA of the chest consistent with pulmonary edema with possible HFpEF exacerbation Assessment and Plan *Assessment and plan (1) CHF (congestive heart failure): Status: Acute Qualifiers: Heart failure type: unspecified Heart failure chronicity: acute on chronic Qualified Code(s): I50.9 - Heart failure, unspecified Category: Medical Code(s): I50.9 - Heart failure, unspecified (2) Decubitus skin ulcer: Status: Acute Qualifiers: Pressure injury location: sacral region Pressure injury stage: stage 1 Qualified Code(s): L89.151 - Pressure ulcer of sacral region, stage 1 Category: Medical Code(s): L89.90 - Pressure ulcer of unspecified site, unspecified stage (3) Macrocytosis: Status: Acute Category: Medical Code(s): D75.89 - Other specified diseases of blood and blood-forming organs (4) Thrombocytosis: Status: Acute Category: Medical Code(s): D75.839 - Thrombocytosis, unspecified (5) Elevated brain natriuretic peptide (BNP) level: Status: Acute Category: Medical Code(s): R79.89 - Other specified abnormal findings of blood chemistry (6) Elevated C-reactive protein (CRP): Status: Acute Category: Medical Code(s): R79.82 - Elevated C-reactive protein (CRP) Plan Assessment: Acute on chronic exacerbation of HFpEF: Last 2D echo was obtained in November 2018 and revealed an EF of 60% Elevated BNP - Obtain 2D echo - 40 mg Lasix IV twice daily - Will consider mobility developer consultation - Not totally convinced of any pneumonia - Will hold off on any antibiotics and discussed with attending Macrocytic anemia Thrombocytosis - Obtain anemia profile Decubitus ulcer elevated CRP - Will continue dressing Plan: Admit patient to the MedSurg unit Up to chair daily Electrolyte replacement SCD to bilateral lower extremity Saline lock 1800 ADA/cardiac diet 2D echo Accu-Cheks AC and at bedtime with mild scale coverage CBC/BMP daily 40 mg Lovenox subcu daily for DVT prophylaxis Patient's magnesium was replaced in the emergency room 4 mg Zofran IV push straight hours pain as above Blood cultures x 2 Full code I will discussed this case with attending physician Dr. Ibanze and I look forward to more input
--- NOTE | 2024-12-28 22:32 | PC.WOUNDNOTE ---
Right buttock wound. 2.8 cm wide x 1.5 cm long. Packed with saline soaked gauze and covered with foam dressing.
[2024-12-29] VITALS: BP 170/98; PULSE 83; RESP 12; TEMP 37; O2SAT 99
[2024-12-29] MEDS: MORPHINE 30MG EXTENDED RELEASE TAB 30 MG PO (00:34)
--- NOTE | 2024-12-29 02:42 | PC.NURSE ---
Pt new admit this shift. AOx4. [place]. BP continues to be high, around 170s/90s. Provider notified. Home pain medication administered. Per provider, will recheck BP around 0400 and give hydralazine PO ONCE as ordered in the APR. Pt being diuresed and having significant output. Purewick in place. Hands contracted and the pt appears to have some foot drop. Pt is bedbound per report. Q2 turn. Pt has a decubitus ulcer on the right hip/buttocks area. Upon removing foam dressing, discovered it was packed with some gauze soaked in saline. Purulent drainage. Dressing changed. Pt is currently resting in bed with eyes closed. Respirations even and unlabored. Bed is low, locked, and call light is in reach. Bed alarm on and functioning. at bedside.
[2024-12-29 04:00] VITALS: BP 198/78; PULSE 77; RESP 16; TEMP 36.6; O2SAT 97; BMI 26.3
[2024-12-29] MEDS: HYDRALAZINE HCL 25MG TABLET 50 MG PO (04:14)
[2024-12-29 05:29] LABS: POC Glucose,Bedside 288 gm/dL (70-110)
[2024-12-29] MEDS: humaLOG 100 UNITS/ML 10ML VIAL (SSI) SUBCUT ×2 (05:32→11:51)
[2024-12-29 05:43] VITALS: BP 157/76
[2024-12-29 08:00] VITALS: BP 148/60; BP 185/71; PULSE 77; RESP 12; TEMP 36.7; O2SAT 98
[2024-12-29 08:09] LABS: Reticulocyte % (Auto) 2.1 % (0.9-3.2)
[2024-12-29 08:15] LABS: Iron 51 ug/dL (37-170)
[2024-12-29 08:25] LABS: Total Iron Binding Capacity 412 ug/dL (265-497)
[2024-12-29 08:51] LABS: Ferritin 85.9 ng/ml (11.1-264)
[2024-12-29 09:07] LABS: Vitamin B12 > 1000 pg/mL (239-931)
[2024-12-29] MEDS: FUROSEMIDE 40MG/4ML VIAL 40 MG IV ×2 (09:30→14:03)
[2024-12-29] MEDS: MORPHINE 15MG EXTENDED RELEASE TAB 15 MG PO (09:31)
[2024-12-29] MEDS: ASPIRIN EC 81MG TABLET 81 MG PO (09:31)
[2024-12-29 09:45] LABS: Hematocrit 35.0 % (37.0-47.0); Hemoglobin 11.6 g/dL (12.2-16.2); Immature Granulocytes % 0.4 %; Mean Corpuscular HGB Conc 33.1 g/dL (31.8-35.4); Mean Corpuscular Hemoglobin 33.1 pg (27.0-31.2); Mean Corpuscular Volume 100.0 fl (81-99); Nucleated Red Blood Cells % 0 %; Platelet Count 532 K/mm3 (142-424); Red Blood Count 3.50 M/mm3 (4.20-5.40); Red Cell Distribution Width-SD 51.6 fL; White Blood Count 10.0 K/mm3 (4.8-10.8)
[2024-12-29 09:53] LABS: Anion Gap 13.4 mEq/L (5-15); Blood Urea Nitrogen 12 mg/dl (7-17); Calcium 9.1 mg/dl (8.4-10.2); Carbon Dioxide 26 mmol/L (22.0-30.0); Chloride 98 mmol/L (98-107); Creatinine Clearance Estimated 53 mL/min (50-200); Creatinine,Serum 0.60 mg/dl (0.52-1.04); Estimated Glomerular Filt Rate 97 ml/min (>60); GFR (African American) 118 ML/MIN (>60); Glucose 224 mg/dl (74-100); Potassium 3.4 mmoL/L (3.5-5.1); Sodium 134 mmol/L (136-145)
[2024-12-29 09:57] LABS: Folate 9.45 ng/mL
--- NOTE | 2024-12-29 09:57 | HMH.PHAINT1 ---
Pharmacy Intervention Comments: MEDICATION RECONCILIATION COMPLETED ON PATIENT USING EXTERNAL FILL HISTORY FROM PHARMACY, LISTS FROM CARDIOLOGY/PCP, AND DISCHARGE SUMMARY FROM PREVIOUS ADMISSION. -JOSELIN SANCHEZ, PHARMD
[2024-12-29 11:04] VITALS: BMI 26.3
--- NOTE | 2024-12-29 11:06 | PC.WOUNDNOTE ---
SMALL RED AREA TO RIGHT INNER THIGH. SMALL RED AREA TO LEFT INNER THIGH.
[2024-12-29 11:39] LABS: POC Glucose,Bedside 270 gm/dL (70-110)
[2024-12-29] MEDS: POTASSIUM CHLORIDE 20MEQ TAB 40 MEQ PO ×2 (11:51→14:03)
[2024-12-29 12:00] VITALS: BP 158/91; PULSE 80; RESP 14; TEMP 36.6; O2SAT 97
--- NOTE | 2024-12-29 12:35 | PC.WOUNDNOTE ---
DRY, REDDENED AREA ON BOTTOM.
--- NOTE | 2024-12-29 14:31 | EXP.DC.SUM ---
General Admission date:: 12/28/24 HPI HPI HPI: This is a 74-year-old female who has a past medical history significant, left renal cyst, hypertension, GERD, neuropathy, diabetic foot ulcer, and bronchitis who presents from home due to 2 abnormal lung sounds and worsening of decubitus wound to hip. Was, she presented to the emergency room for evaluation. While in the emergency room, again of the chest revealed prominent and decidual markings of the lung bases with airspace opacities and low volume. 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 As a result of these findings, patient has been admitted for further management. During my evaluation of the patient, she did have a chief complaint of shortness of air. She was denying any chest pain, lightheadedness, dizziness, fever, chills, rigors, nausea, vomiting, PND, orthopnea, or diarrhea. Additional pertinent vitals obtained include a white blood cell count 11.2, red blood cell count 3.46, hemoglobin 11.2, hematocrit 36, platelet count 508, sodium 135, blood glucose of 216, alkaline phosphate 140, C-reactive protein of 49.3, and BNP of 1760. EKG revealed a sinus rhythm with a left branch block, left axis deviation, QTc of 472, possible left ventricular hypertrophy, no active STEMI Hospital Course Hospital Course Hospital Course: Yolanda Agosto is a 74-year-old female who presented with shortness of breath and was admitted for acute HFpEF exacerbation. #Acute HFpEF, new diagnosis ? Presented with shortness of breath, found to have pulmonary and peripheral edema. Diuresed well with IV Lasix. Remained on room air. Feeling much better on day of discharge. ECHO shows normal biventricular systolic function. Discharged with Lasix 40 mg daily. Follow-up with cardiology within 1 week. #Decubitus ulcer ? Patient is bedbound, does have tunneled right sided decubitus ulcer that is packed. No active signs of infection. at bedside would like home health with wound care, will consult case management regarding establishing wound care at home. Exam Data for Last 24 hours Vital signs and Labs for Last 24 Hours: Temp Pulse Resp BP Pulse Ox O2 Del Method O2 Flow Rate 97.8 F 80 14 158/91 H 97 Room Air 2 12/29/24 12:00 12/29/24 12:00 12/29/24 12:00 12/29/24 12:00 12/29/24 12:00 12/29/24 13:00 12/28/24 23:00 Laboratory Results - last 24 hr 12/28/24 16:40: WBC 11.2 H, RBC 3.46 L, Hgb 11.2 L, Hct 36.0 L, MCV 104.0 H, MCH 32.4 H, MCHC 31.1 L, RDW 14.3, Plt Count 508 H, MPV 9.2, Neut % (Auto) 71.6, Lymph % (Auto) 18.6, Rush % (Auto) 7.0, Eos % (Auto) 1.3, Baso % (Auto) 1.1, Neut # (Auto) 8.0 H, Lymph # (Auto) 2.1, Rush # (Auto) 0.8, Eos # (Auto) 0.2, Baso # (Auto) 0.1, ESR 29, PT 11.4, INR 1.03, APTT 26.7, Sodium 135 L, Potassium 4.1, Chloride 100, Carbon Dioxide 29, Anion Gap 10.1, BUN 13, Creatinine 0.60, Estimated Creat Clear 62, Estimated GFR 97, Est GFR ( Amer) 118, Glucose 216 H, Lactate 1.8, Calcium 9.2, Total Bilirubin 0.5, AST 17, ALT 12, Alkaline Phosphatase 140 H, Total Creatine Kinase 36, C-Reactive Protein 49.3 H, NT-Pro-B Natriuret Pep 1760 H, Total Protein 6.7, Albumin 3.4 L, Globulin 3.3 H, Albumin/Globulin Ratio 1.0 L 12/28/24 16:46: Chlamy pneumoniae PCR Not detected, Adenovirus (PCR) Not detected, B. pertussis DNA (PCR) Not detected, Coronavirus OC43 (PCR) Not detected, Coronavirus HKU1 (PCR) Not detected, Coronavirus 229E (PCR) Not detected, SARS-CoV-2 (PCR) Not detected, Coronavirus NL63 (PCR) Not detected, Human Metapneumovir PCR Not detected, Influenza A (H1) PCR Not detected, Influ A (H1N1/09) PCR Not detected, Influenza A (H3) PCR Not detected, Influenza Type A (PCR) Not detected, Influenza Type B (PCR) Not detected, M. pneumoniae (PCR) Not detected, Parainfluenza 1 (PCR) Not detected, Parainfluenza 2 (PCR) Not detected, Parainfluenza 3 (PCR) Not detected, Parainfluenza 4 (PCR) Not detected, RSV (PCR) Not detected, Entero/Rhino (PCR) Not detected 12/28/24 18:50: Urine Color Yellow, Urine Appearance Clear, Urine pH 5.5, Ur Specific [place] 1.020, Urine Protein Trace, Urine Glucose (UA) Trace, Urine Ketones Negative, Urine Blood 1+ A, Urine Nitrate Negative, Urine Bilirubin Negative, Urine Urobilinogen 1.0, Ur Leukocyte Esterase Negative, Urine RBC 5-10, Urine WBC None, Ur Squamous Epith Cells 5-10, Urine Bacteria None 12/29/24 05:22: POC Glucose 288 H 12/29/24 07:55: WBC 10.0, RBC 3.50 L, Hgb 11.6 L, Hct 35.0 L, MCV 100.0 H, MCH 33.1 H, MCHC 33.1, RDW 14.0, Plt Count 532 H, MPV 9.3, Neut % (Auto) 80.6 H, Lymph % (Auto) 12.1, Rush % (Auto) 6.2, Eos % (Auto) 0.0 L, Baso % (Auto) 0.7, Neut # (Auto) 8.0 H, Lymph # (Auto) 1.2, Rush # (Auto) 0.6, Eos # (Auto) 0.0, Baso # (Auto) 0.1, Retic Count (auto) 2.1, Sodium 134 L, Potassium 3.4 L, Chloride 98, Carbon Dioxide 26, Anion Gap 13.4, BUN 12, Creatinine 0.60, Estimated Creat Clear 53, Estimated GFR 97, Est GFR ( Amer) 118, Glucose 224 H, Calcium 9.1, Iron 51, TIBC 412, Iron Saturation 12.79994 L, Ferritin 85.9, Vitamin B12 > 1000 H, Folate 9.45 12/29/24 10:57: POC Glucose 270 H I & O for Last 24 hours: Intake & Output 12/26/24 12/27/24 12/28/24 12/29/24 23:59 23:59 23:59 23:59 Intake Total 300 / 780 680 / 680 Output Total 1800 / 2500 2049 Balance -1500 / -1720 -1370 / -1370 Weight 71.866 kg 69.91 kg Constitutional Constitutional: no acute distress, average body habitus, chronically ill appearing and cooperative *Routine HEENT Exam Head: Present normocephalic Eye: Present EOMI ENT: Present mucous membranes moist *Routine Neck Exam Neck: Present supple and full ROM *Routine Respiratory Exam Respiratory: Present CTA bilaterally, able to speak in complete sentences and symmetric chest movement; Absent wheezes or crackles *Routine Cardiovascular Exam Cardiovascular: Present RRR; Absent murmur *Routine Abdominal Exam Abdominal: Present soft and normoactive bowel sounds; Absent tenderness or distended *Routine Extremities Exam Extremities: Present extremity cold to touch; Absent edema *Routine Skin Exam Skin: Present dry and wounds Comments: Pressure ulcer posterior right hip *Routine Neurological Exam Neurological: Present alert and oriented X3; Absent moving all extremities Routine Psychiatric Exam Psychiatric: Present normal affect Results Data Completed and Pending Labs on day of discharge: Labs from last 24 hours 12/29/24 12/29/24 12/29/24 10:57 07:55 05:22 WBC 10.0 RBC 3.50 L Hgb 11.6 L Hct 35.0 L MCV 100.0 H MCH 33.1 H MCHC 33.1 RDW 14.0 Plt Count 532 H MPV 9.3 Neut % (Auto) 80.6 H Lymph % (Auto) 12.1 Rush % (Auto) 6.2 Eos % (Auto) 0.0 L Baso % (Auto) 0.7 Neut # (Auto) 8.0 H Lymph # (Auto) 1.2 Rush # (Auto) 0.6 Eos # (Auto) 0.0 Baso # (Auto) 0.1 ESR Retic Count (auto) 2.1 PT INR APTT Sodium 134 L Potassium 3.4 L Chloride 98 Carbon Dioxide 26 Anion Gap 13.4 BUN 12 Creatinine 0.60 Estimated Creat Clear 53 Estimated GFR 97 Est GFR ( Amer) 118 Glucose 224 H POC Glucose 270 H 288 H Lactate Calcium 9.1 Iron 51 TIBC 412 Iron Saturation 12.85384 L Ferritin 85.9 Total Bilirubin AST ALT Alkaline Phosphatase Total Creatine Kinase C-Reactive Protein NT-Pro-B Natriuret Pep Total Protein Albumin Globulin Albumin/Globulin Ratio Vitamin B12 > 1000 H Folate 9.45 Urine Color Urine Appearance Urine pH Ur Specific [place] Urine Protein Urine Glucose (UA) Urine Ketones Urine Blood Urine Nitrate Urine Bilirubin Urine Urobilinogen Ur Leukocyte Esterase Urine RBC Urine WBC Ur Squamous Epith Cells Urine Bacteria Chlamy pneumoniae PCR Adenovirus (PCR) B. pertussis DNA (PCR) Coronavirus OC43 (PCR) Coronavirus HKU1 (PCR) Coronavirus 229E (PCR) SARS-CoV-2 (PCR) Coronavirus NL63 (PCR) Human Metapneumovir PCR Influenza A (H1) PCR Influ A (H1N1/09) PCR Influenza A (H3) PCR Influenza Type A (PCR) Influenza Type B (PCR) M. pneumoniae (PCR) Parainfluenza 1 (PCR) Parainfluenza 2 (PCR) Parainfluenza 3 (PCR) Parainfluenza 4 (PCR) RSV (PCR) Entero/Rhino (PCR) 12/28/24 12/28/24 12/28/24 18:50 16:46 16:40 WBC 11.2 H RBC 3.46 L Hgb 11.2 L Hct 36.0 L MCV 104.0 H MCH 32.4 H MCHC 31.1 L RDW 14.3 Plt Count 508 H MPV 9.2 Neut % (Auto) 71.6 Lymph % (Auto) 18.6 Rush % (Auto) 7.0 Eos % (Auto) 1.3 Baso % (Auto) 1.1 Neut # (Auto) 8.0 H Lymph # (Auto) 2.1 Rush # (Auto) 0.8 Eos # (Auto) 0.2 Baso # (Auto) 0.1 ESR 29 Retic Count (auto) PT 11.4 INR 1.03 APTT 26.7 Sodium 135 L Potassium 4.1 Chloride 100 Carbon Dioxide 29 Anion Gap 10.1 BUN 13 Creatinine 0.60 Estimated Creat Clear 62 Estimated GFR 97 Est GFR ( Amer) 118 Glucose 216 H POC Glucose Lactate 1.8 Calcium 9.2 Iron TIBC Iron Saturation Ferritin Total Bilirubin 0.5 AST 17 ALT 12 Alkaline Phosphatase 140 H Total Creatine Kinase 36 C-Reactive Protein 49.3 H NT-Pro-B Natriuret Pep 1760 H Total Protein 6.7 Albumin 3.4 L Globulin 3.3 H Albumin/Globulin Ratio 1.0 L Vitamin B12 Folate Urine Color Yellow Urine Appearance Clear Urine pH 5.5 Ur Specific [place] 1.020 Urine Protein Trace Urine Glucose (UA) Trace Urine Ketones Negative Urine Blood 1+ A Urine Nitrate Negative Urine Bilirubin Negative Urine Urobilinogen 1.0 Ur Leukocyte Esterase Negative Urine RBC 5-10 Urine WBC None Ur Squamous Epith Cells 5-10 Urine Bacteria None Chlamy pneumoniae PCR Not detected Adenovirus (PCR) Not detected B. pertussis DNA (PCR) Not detected Coronavirus OC43 (PCR) Not detected Coronavirus HKU1 (PCR) Not detected Coronavirus 229E (PCR) Not detected SARS-CoV-2 (PCR) Not detected Coronavirus NL63 (PCR) Not detected Human Metapneumovir PCR Not detected Influenza A (H1) PCR Not detected Influ A (H1N1/09) PCR Not detected Influenza A (H3) PCR Not detected Influenza Type A (PCR) Not detected Influenza Type B (PCR) Not detected M. pneumoniae (PCR) Not detected Parainfluenza 1 (PCR) Not detected Parainfluenza 2 (PCR) Not detected Parainfluenza 3 (PCR) Not detected Parainfluenza 4 (PCR) Not detected RSV (PCR) Not detected Entero/Rhino (PCR) Not detected DS: Diagnosis Discharge Diagnosis (1) CHF (congestive heart failure): Status: Acute Code(s): I50.9 - Heart failure, unspecified Qualifiers: Heart failure chronicity: acute on chronic Heart failure type: unspecified Qualified Code(s): I50.9 - Heart failure, unspecified (2) Decubitus skin ulcer: Status: Acute Code(s): L89.90 - Pressure ulcer of unspecified site, unspecified stage Qualifiers: Pressure injury location: sacral region Pressure injury stage: stage 1 Qualified Code(s): L89.151 - Pressure ulcer of sacral region, stage 1 (3) Macrocytosis: Status: Acute Code(s): D75.89 - Other specified diseases of blood and blood-forming organs (4) Thrombocytosis: Status: Acute Code(s): D75.839 - Thrombocytosis, unspecified (5) Elevated brain natriuretic peptide (BNP) level: Status: Acute Code(s): R79.89 - Other specified abnormal findings of blood chemistry (6) Elevated C-reactive protein (CRP): Status: Acute Code(s): R79.82 - Elevated C-reactive protein (CRP) Meds Home Medications and Allergies Home Medications ?Medication ?Instructions ?Recorded ?Confirmed ?Type oxycodone-acetaminophen 10 mg-325 1 tab PO QIDP PRN Moderate Pain 04/02/23 12/28/24 History mg tablet (Scale Score 5-6) morphine 15 mg tablet,extended 30 mg (2 x 15 mg) PO DAILY #30 tabs 03/30/24 12/28/24 Rx release cholecalciferol (vitamin D3) 1,250 1,250 mcg PO WEEKLY #10 caps 05/15/24 12/28/24 Rx mcg (50,000 unit) capsule blood pressure monitor #1 ea 08/16/24 12/28/24 Rx baclofen 10 mg tablet 10 mg PO Q8HP PRN muscle spasm 11/14/24 12/28/24 History gabapentin 600 mg tablet 600 mg PO TID 11/14/24 12/28/24 History hydroxyzine HCl 10 mg tablet 10 mg PO BIDP PRN Anxiety 11/14/24 12/28/24 History insulin aspar prt-insulin aspart 12 unit SQ DAILY 11/14/24 12/28/24 History 100 unit/mL (70-30) subcutaneous soln (Novolog Mix 70-30 U-100 Insuln) insulin glargine 100 32 unit SQ DAILY 11/14/24 12/28/24 History unit-lixisenatide 33 mcg/mL subcutaneous pen (Soliqua 100/33) paroxetine HCl 20 mg tablet 60 mg PO HS 11/14/24 12/28/24 History prochlorperazine maleate 5 mg 5 mg PO TIDP PRN anxiety or nausea 11/14/24 12/28/24 History tablet quetiapine 50 mg tablet 50 mg PO HS 11/14/24 12/28/24 History alendronate 70 mg tablet 70 mg PO WEEKLY #10 tabs 11/22/24 12/28/24 Rx clopidogrel 75 mg tablet 75 mg PO DAILY 11/22/24 12/28/24 History blood sugar diagnostic (Accu-Chek #100 ea 12/03/24 12/28/24 Rx Guide test strips) atorvastatin 40 mg tablet 40 mg PO DAILY #90 tabs 12/13/24 12/28/24 Rx furosemide 40 mg tablet (Lasix) 40 mg PO DAILY #30 tabs 12/29/24 Rx New Prescriptions to Start Prescriptions: furosemide [Lasix] [facility] Allergies Allergy/AdvReac Type Severity Reaction Status Date / Time cefuroxime (From CEFTIN) Allergy Mild Unknown Verified 11/22/24 14:22 allergy reaction codeine Allergy Unknown Verified 11/22/24 14:22 allergy reaction Discharge Plan Disposition Patient Disposition: Home Health Service Condition: Fair Discharge Order Discharge Orders: Discharge Order (Routine); Ordered 12/29/24 Ordered By: [facility] Follow up Plan Follow up with: Hitesh Abad PA [[facility] [employer], Cardiology] - 1 week Referral Note: office will be in contact for follow up Prescriptions/Medication Reconciliation: New furosemide [Lasix] 40 mg tablet 40 mg PO DAILY Qty: 30 0RF Continued morphine 15 mg tablet extended release 30 mg PO DAILY Qty: 30 0RF alendronate 70 mg tablet 70 mg PO WEEKLY Qty: 10 0RF (DME) blood pressure monitor Kit See Rx Instructions .Route Qty: 1 0RF Rx Instructions: As directed clopidogrel 75 mg tablet 75 mg PO DAILY cholecalciferol (vitamin D3) 1,250 mcg (50,000 unit) capsule 1,250 mcg PO WEEKLY Qty: 10 0RF (DME) Accu-Chek Guide test strips Strip See Rx Instructions .ROUTE .COMPLEX Qty: 100 6RF Dose Instruction: CHECK FASTING BLOOD SUGAR ONCE DAILY NEEDED Rx Instructions: CHECK FASTING BLOOD SUGAR ONCE DAILY NEEDED atorvastatin 40 mg tablet 40 mg PO DAILY Qty: 90 3RF oxycodone-acetaminophen 10-325 mg tablet 1 tab PO QIDP PRN (Reason: Moderate Pain (Scale Score 5-6)) gabapentin 600 mg tablet 600 mg PO TID prochlorperazine maleate 5 mg tablet 5 mg PO TIDP PRN (Reason: anxiety or nausea) baclofen 10 mg tablet 10 mg PO Q8HP PRN (Reason: muscle spasm) paroxetine HCl 20 mg tablet 60 mg PO HS hydroxyzine HCl 10 mg tablet 10 mg PO BIDP PRN (Reason: Anxiety) insulin asp prt-insulin aspart [Novolog Mix 70-30 U-100 Insuln] 100 unit/mL (70-30) solution 12 unit SQ DAILY quetiapine 50 mg tablet 50 mg PO HS Soliqua 100/33 100 unit-33 mcg/mL insulin pen 32 unit SQ DAILY Problem Reconciliation Problems Reviewed?: Yes Patient Discharge Instructions Patient Instructions: Chronic Obstructive Pulmonary Disease, Adult Respiratory Distress Syndrome, DI for Heart Failure, Stop Light COPD, Stop Light Heart Failure Print Language: Russian Providers Primary Care Provider: Kb Hernández Admit Provider: [facility] Attending Provider: [facility]
--- NOTE | 2024-12-31 08:29 | SW/DCPLANNER ---
Spoke with norris Colbert from [facility] in [place]. Norris stated that patient has been seen by their home health and that they do a 3rd green party wound care and that they have sent patient's information and that they are still processing for wound care from the 3rd green party. Norris stated that their nurse will be going to see patient today and will explain more to the patient. Danis Kelly
--- NOTE | 2024-12-31 10:52 | SW/DCPLANNER ---
Spoke with patient on the phone. Patient stated that she is doing much better. Patient stated that she is aware of her upcoming appointment. Patient stated that she was able to get her new medicine picked up from the pharmacy. Patient stated that she has no concerns or questions at this time. Danis Kelly
== END 2024-12-29 15:54 | disposition home health service (06) ==
LOC: ER 20:24 → 2ND 20:34
PROVIDERS: Nurse Practitioner; Nurse Practitioner Family; Admitting Provider Student in an Organized Health Care Education/Training Program; Emergency Provider Student in an Organized Health Care Education/Training Program; PCP Internal Medicine; Visit Provider Student in an Organized Health Care Education/Training Program
DX: I11.0 Hypertensive heart disease with heart failure (principal); I50.33 Acute on chronic diastolic (congestive) heart failure; J44.1 Chronic obstructive pulmonary disease with (acute) exacerbation; L89.151 Pressure ulcer of sacral region, stage 1; D75.839 Thrombocytosis, unspecified; R79.82 Elevated C-reactive protein (CRP); E11.40 Type 2 diabetes mellitus with diabetic neuropathy, unspecified; K21.9 Gastro-esophageal reflux disease without esophagitis; I25.2 Old myocardial infarction; F17.210 Nicotine dependence, cigarettes, uncomplicated; D53.9 Nutritional anemia, unspecified; I44.7 Left bundle-branch block, unspecified; R00.1 Bradycardia, unspecified; I25.10 Atherosclerotic heart disease of native coronary artery without angina pectoris; Z86.73 Personal history of transient ischemic attack (TIA), and cerebral infarction without residual deficits; Z88.8 Allergy status to other drugs, medicaments and biological substances; Z88.1 Allergy status to other antibiotic agents; Z79.4 Long term (current) use of insulin; Z79.02 Long term (current) use of antithrombotics/antiplatelets; Z79.899 Other long term (current) drug therapy; I50.9 Heart failure, unspecified; D75.89 Other specified diseases of blood and blood-forming organs; R79.89 Other specified abnormal findings of blood chemistry; I77.1 Stricture of artery
CPT/HCPCS: 0223U; 36415; 71260; 80048; 80053; 81001; 82550; 82607; 82728; 82746; 82962; 83540; 83550; 83605; 83880; 85025; 85044; 85610; 85651; 85730; 86140; 87040; 93005; 96365; 96366; 96367; 96372; 96375; 96376; 99285; G0378; J0456; J1100; J1650; J1938; J3475; J7050; Q9967

== ENCOUNTER 2025-02-19 17:40 | Emergency (ER) | payer MEDICARE, SELFPAY ==
[2025-02-19] VITALS (10 sets, daily range): BP systolic 141–179; BP diastolic 49–81; PULSE 71–86; RESP 16–19; TEMP 37.6–38.5; O2SAT 94–99; BMI 40.2
--- NOTE | 2025-02-19 17:25 | CT_ITS ---
PROCEDURE INFORMATION: Exam: CT Abdomen And Pelvis With Contrast Exam date and time: 02/19/2025 6:32 PM Age: 74 years old Clinical indication: Other: Ulcer; Additional info: Infected decub ulcer TECHNIQUE: Imaging protocol: Computed tomography of the abdomen and pelvis with contrast. Radiation optimization: All CT scans at this facility use at least one of these dose optimization techniques: automated exposure control; mA and/or kV adjustment per patient size (includes targeted exams where dose is matched to clinical indication); or iterative reconstruction. Contrast material: ISOVUE; Contrast volume: 75 ml; Contrast route: IV; COMPARISON: CT ABDOMEN PELVIS W CON 11/14/2024 11:04 AM FINDINGS: Tubes, catheters and devices: None noted. Lungs: Lung bases appear clear. Heart: No significant coronary calcifications. No cardiomegaly. No significant pericardial effusion. Liver: Normal. No mass. Gallbladder and biliary ducts: Cholecystectomy. No ductal dilation. Pancreas: Normal. No ductal dilation. Spleen: Normal. No splenomegaly. Adrenal glands: Normal. No mass. Kidneys and ureters: Normal. No hydronephrosis. Stomach and bowel: Unremarkable. No obstruction. No mucosal thickening. Appendix: No evidence of appendicitis. Intraperitoneal space: Unremarkable. No free air. No significant fluid collection. Retroperitoneal space: No significant retroperitoneal inflammatory changes are noted. Vasculature: Unremarkable. No abdominal aortic aneurysm. Lymph nodes: Unremarkable. No enlarged lymph nodes. Urinary bladder: Unremarkable as visualized. Reproductive: Unremarkable as visualized. Bones/joints: Internal fixation of the spine. Left total hip arthroplasty. No acute fracture. Soft tissues: Abscess in the right proximal thigh laterally, appears related to deep decubitus ulcer at the greater trochanter. Concern for necrotizing fasciitis. IMPRESSION: 1. Abscess in the right proximal thigh laterally, appears related to deep decubitus ulcer at the greater trochanter. Concern for necrotizing fasciitis. 2. Cholecystectomy. 3. Internal fixation of the spine. 4. Internal fixation left hip.
[2025-02-19 17:38] LABS: Hematocrit 29.4 % (37.0-47.0); Hemoglobin 9.0 g/dL (12.2-16.2); Immature Granulocytes % 0.8 %; Mean Corpuscular HGB Conc 30.6 g/dL (31.8-35.4); Mean Corpuscular Hemoglobin 29.2 pg (27.0-31.2); Mean Corpuscular Volume 95.5 fl (81-99); Nucleated Red Blood Cells % 0 %; Platelet Count 493 K/mm3 (142-424); Red Blood Count 3.08 M/mm3 (4.20-5.40); Red Cell Distribution Width-SD 54.1 fL; White Blood Count 21.2 K/mm3 (4.8-10.8)
[2025-02-19 17:40] LABS: Lactate Venous 1.6 mmol/L (0.4-2.0); VBG HCO3 24.9 mmol/L (23-30); VBG PCO2 44.7 mmol/L (35-51); VBG PH 7.36 mmol/L (7.31-7.41); VBG PO2 38.9 mmol/L (28-40)
--- NOTE | 2025-02-19 17:48 | ED_ITS ---
<Statement entered by Baldomero Hanley MD - 02/19/25 23:17> I was consulted by the VERONICA, and we discussed the complexity of the problems being addressed. I approved the treatment and management plan for this patient's care in the emergency department, thus performing a substantive portion of the medical decision making. Baldomero Hanley MD, JUAN, FACEP Discharge Plan Disposition Patient Disposition: Xfer Short-Term Hosp Condition: Serious Prescriptions Prescriptions: No Action morphine 15 mg tablet extended release 30 mg PO DAILY Qty: 30 0RF (DME) blood pressure monitor Kit See Rx Instructions .Route Qty: 1 0RF Rx Instructions: As directed clopidogrel 75 mg tablet 75 mg PO DAILY cholecalciferol (vitamin D3) 1,250 mcg (50,000 unit) capsule 1,250 mcg PO WEEKLY Qty: 10 0RF (DME) Accu-Chek Guide test strips Strip See Rx Instructions .ROUTE .COMPLEX Qty: 100 6RF Dose Instruction: CHECK FASTING BLOOD SUGAR ONCE DAILY NEEDED Rx Instructions: CHECK FASTING BLOOD SUGAR ONCE DAILY NEEDED atorvastatin 40 mg tablet 40 mg PO DAILY Qty: 90 3RF alendronate 70 mg tablet 70 mg PO Q7D Qty: 10 0RF cyanocobalamin (vitamin B-12) 1,000 mcg/mL solution 1,000 mcg IM WEEKLY Qty: 10 0RF oxycodone-acetaminophen 10-325 mg tablet 1 tab PO QIDP PRN (Reason: Moderate Pain (Scale Score 5-6)) gabapentin 600 mg tablet 600 mg PO TID prochlorperazine maleate 5 mg tablet 5 mg PO TIDP PRN (Reason: anxiety or nausea) baclofen 10 mg tablet 10 mg PO Q8HP PRN (Reason: muscle spasm) paroxetine HCl 20 mg tablet 60 mg PO HS hydroxyzine HCl 10 mg tablet 10 mg PO BIDP PRN (Reason: Anxiety) insulin asp prt-insulin aspart [Novolog Mix 70-30 U-100 Insuln] 100 unit/mL (70-30) solution 12 unit SQ DAILY quetiapine 50 mg tablet 50 mg PO HS Soliqua 100/33 100 unit-33 mcg/mL insulin pen 32 unit SQ DAILY furosemide [Lasix] 40 mg tablet 40 mg PO DAILY Qty: 30 0RF Referrals Follow up/Referrals: Kb Hernández DO [Primary Care Provider, Family Practice] - See instructions Clinical Impressions Clinical Impression: Necrotizing fasciitis Stand Alone Forms Stand Alone Forms: Transfer Record - ED Instructions Patient Instructions: DI for Altered Mental Status Print Language Print Language: [place] Discharge ED Provider: Baldomero Hanley General Adult HPI <Princess Callahan - Last Filed: 02/19/25 20:51> General Chief complaint: Altered Mental Status Stated complaint: AMS Time Seen by Provider: 02/19/25 17:48 History of Present Illness HPI narrative: 74-year-old female with a history of previous CVA presents to the emergency department via EMS after neighbor called EMS concerned that patient was not being properly cared for. According to EMS patient lives at home with her elderly who helps call for her. She is bedbound. They state that they have home health come out to check her chronic decubitus ulcers however the neighbor states when she came to check on the patient she was laying in a urine soaked bed. Related Data Home Medications ?Medication ?Instructions ?Recorded ?Confirmed oxycodone-acetaminophen 10 mg-325 1 tab PO QIDP PRN Mo derate Pain 04/02/23 12/28/24 mg tablet (Scale Score 5-6) baclofen 10 mg tablet 10 mg PO Q8HP PRN muscle spa sm 11/14/24 12/28/24 gabapentin 600 mg tablet 600 mg PO TID 11/14/2412/28 hydroxyzine HCl 10 mg tablet 10 mg PO BIDP PRN Anxiety 11/14/24 12/28/24 insulin aspar prt-insulin aspart 12 unit SQ DAILY 10/2312/28/24 100 unit/mL (70-30) subcutaneous soln (Novolog Mix 70-30 U-100 Insuln) insulin glargine 100 32 unit SQ DAILY 11/14/24 unit-lixisenatide 33 mcg/mL subcutaneous pen (Soliqua 100/33) paroxetine HCl 20 mg tablet 60 mg PO HS 11/14/2412/28 prochlorperazine maleate 5 mg 5 mg PO TIDP PRN anxiety or nausea 11/14/24 12/28/24 tablet quetiapine 50 mg tablet 50 mg PO HS 11/14/24 5 clopidogrel 75 mg tablet 75 mg PO DAILY 11/22/2409/14 Previous Rx's ?Medication ?Instructions ?Recorded morphine 15 mg tablet,extended 30 mg (2 x 15 mg) PO DA ANGELITA #30 tabs 03/30/24 release cholecalciferol (vitamin D3) 1,250 1,250 mcg PO WEEKLY #10 caps 05/15/24 mcg (50,000 unit) capsule blood pressure monitor #1 ea 08/16/24 blood sugar diagnostic (Accu-Chek #100 ea 12/03/24 Guide test strips) atorvastatin 40 mg tablet 40 mg PO DAILY #90 tabs 11/22 05/15 furosemide 40 mg tablet (Lasix) 40 mg PO DAILY #30 tab s 12/29/24 alendronate 70 mg tablet 70 mg PO Q7D #10 tabs cyanocobalamin (vitamin B-12) 1,000 mcg IM WEEKLY #10 mL 02/05/25 1,000 mcg/mL injection solution Allergies Allergy/AdvReac Type Severity Reaction Status Date / Time cefuroxime (From CEFTIN) Allergy Mild Unknown Verified 11/22/24 14:22 allergy reaction codeine Allergy Unknown Verified 11/22/24 14:22 allergy reaction [facility] <Princess Callahan - Last Filed: 02/19/25 20:51> [facility] Disclaimer: The information contained in this section may have been updated after the patient was seen, as this information can be updated by other users. Medical History Myocardial injury NSTEMI (non-ST elevated myocardial infarction) Visit for wound care Hospital discharge follow-up Decubitus skin ulcer CHF exacerbation CVA (cerebral vascular accident) Pain due to onychomycosis of toenails of both feet Hip replacement planned Coronary artery disease Renal cyst, left Chest pain HTN (hypertension) Abnormal electrocardiography Gastroesophageal reflux disease Dyspnea Chest pain Neuropathy, cervical (radicular) Left shoulder strain Chronic prescription opiate use Declining functional status Hypertensive urgency Callus of foot Onychomycosis Diabetic foot Chronic, continuous use of opioids Hemiplegia affecting right dominant side Gastroenteritis Bronchitis Surgical History History of knee replacement History of back surgery Social History Smoking Status: Never smoker alcohol intake: former substance use type: denies use current occupational status: retired and disabled Travel in the last 8 weeks?: None household members: spouse housing: other caffeine: No Have you lived/traveled outside US in past 30 days?: No Contact w/someone who lives/traveled outside US past 30 days?: No Exposure to someone with infectious disease in past 14 days?: No Do you have a fever (greater than 100.4 F or 38 C)?: No Have you tested positive for COVID-19?: No Exposed to someone with COVID-19 in past 14 days?: No Do you have a sore throat?: No Do you have a cough?: No Do you have any weakness?: No Do you have any diarrhea?: No Are you experiencing any unusual bleeding?: No Do you have any muscle aches/pain?: No Do you have any abdominal pain?: No Are you experiencing loss of taste or smell?: No Other Medical History Have you received the Flu Vaccine for this season: No Have you received the Pneumonia Vaccine: No <Princess Callahan - Last Filed: 02/19/25 20:51> ROS Obtained: Yes other Musculoskeletal Musculoskeletal: Reports other (Contractures) Integumentary/Breasts Skin/Breast: Reports wounds Neurologic Neurologic: Reports abnormal speech Physical Exam <Princess Callahan - [facility] Filed: 02/19/25 20:51> Narrative Physical exam: General: Awake, aware HEENT: Normocephalic, no evidence of trauma CV: RRR, no murmurs, rubs, or gallops Pulm: CTA bilaterally with no rhonchi, rales, wheezes ABD: Nontender, no swelling, guarding, or rebound tenderness Psych: Patient repeatedly yelling out and attempting to communicate without however her speech is garbled. Musculoskeletal: Patient has contractures of all extremities. She seems to be uncomfortable when attempting to manipulate extremities or move her around in the bed. Skin: Patient has a moderately sized stage III decubitus ulcer present on her right buttock. There is a large amount of foul-smelling drainage coming from wound. Minimal surrounding cellulitis to this area. Patient also has a stage II decubitus to her coccyx with surrounding cellulitis. No drainage noted from this wound. In addition patient has dry flaky skin over most of her body as well as scabbed wounds to her toes. General General appearance: in distress Respiratory Respiratory exam: Present normal lung sounds bilaterally Cardiovascular Cardiovascular exam: Present regular rate Neurological Exam Neurological exam: Present alert Medical Decision Making <Princess Callahan - Last Filed: 02/19/25 20:51> Medical Records Screening: Per USPSTF and CDC recommendations, given the prevalence of disease in our region, it is our hospital?s policy to screen for HIV and viral Hepatitis for all patients aged 18 and over and those with ongoing risk factors. Lm Inquiry Pt receiving controlled substance: No Vital Signs: 02/19/25 17:31 02/19/25 17:48 02/19/25 18:00 Temperature 100 F H 99.7 F H Temperature Source Core Pulse Rate 71 71 Pulse Rate [Right Radial] 71 Respiratory Rate 19 Blood Pressure 173/51 H 177/56 H Blood Pressure [Right Arm] 168/73 H Blood Pressure Mean [Right Arm] 104 Blood Pressure Source Blood Pressure Source [Right Arm] Automatic Cuff Blood Pressure Position Blood Pressure Position [Right Arm] Supine 02 Sat by Pulse Oximetry 98 99 99 Oxygen Delivery Method Room Air 02/19/25 19:00 02/19/25 19:30 02/19/25 20:00 Temperature 100.2 F H 100.4 F H 100.9 F H Temperature Source Pulse Rate 86 82 75 Pulse Rate [Right Radial] Respiratory Rate Blood Pressure 175/65 H 179/81 H 172/49 H Blood Pressure [Right Arm] Blood Pressure Mean [Right Arm] Blood Pressure Source Blood Pressure Source [Right Arm] Blood Pressure Position Blood Pressure Position [Right Arm] 02 Sat by Pulse Oximetry 97 99 98 Oxygen Delivery Method 02/19/25 20:31 02/19/25 21:01 02/19/25 21:21 Temperature 101.3 F H 101.3 F H 100.9 F H Temperature Source Core Pulse Rate 79 71 86 Pulse Rate [Right Radial] Respiratory Rate 16 Blood Pressure 158/69 H 146/52 H 146/52 H Blood Pressure [Right Arm] Blood Pressure Mean [Right Arm] Blood Pressure Source Automatic Cuff Blood Pressure Source [Right Arm] Blood Pressure Position Supine Blood Pressure Position [Right Arm] 02 Sat by Pulse Oximetry 97 98 Oxygen Delivery Method Room Air 02/19/25 21:31 Temperature 101.3 F H Temperature Source Pulse Rate Pulse Rate [Right Radial] Respiratory Rate Blood Pressure 141/69 H Blood Pressure [Right Arm] Blood Pressure Mean [Right Arm] Blood Pressure Source Blood Pressure Source [Right Arm] Blood Pressure Position Blood Pressure Position [Right Arm] 02 Sat by Pulse Oximetry Oxygen Delivery Method Lab Data Lab Results 02/19/25 17:05: HCV Ab COLLEEN w/Rflx PCR Qn Negative, HIV Ag/Ab Combo Qual Negative 02/19/25 17:28: WBC 21.2 H*, RBC 3.08 L, Hgb 9.0 L, Hct 29.4 L, MCV 95.5, MCH 29.2, MCHC 30.6 L, RDW 15.4, Plt Count 493 H, MPV 8.9, Neut % (Auto) 88.7 H, L ymph % (Auto) 4.6 L, [place] % (Auto) 5.6, Eos % (Auto) 0.0 L, Baso % (Auto) 0.3, N eut # (Auto) 18.8 H, Lymph # (Auto) 1.0, [place] # (Auto) 1.2 H, Eos # (Auto) 0.0, Baso # (Auto) 0.1, VBG pH 7.36, VBG pCO2 44.7, VBG pO2 38.9, VBG HCO3 24.9, VBG Total CO2 26.2, VBG O2 Saturation 70.3 H, VBG Base Excess -0.5, VBG Lactic Acid 1.6, Sodium 128 L, Potassium 3.6, Chloride 93 L, Carbon Dioxide 28, Anion Gap 10.6, BUN 20 H, Creatinine 0.80, Estimated Creat Clear 75, Estimated GFR 70, Est GFR ( Amer) 84, Glucose 137 H, Lactate 1.2, Calcium 8.2 L, Total Bilirubin 1.0, AST 21, ALT 11 L, Alkaline Phosphatase 146 H, Total Protein 6.3, Albumin 2.9 L, Globulin 3.4 H, Albumin/Globulin Ratio 0.9 L, Procalcitonin 0.283, Urine Color Yellow, Urine Appearance Clear, Urine pH 6.0, Ur Specific [place] 1.020, Urine Protein 2+ A, Urine Glucose (UA) Negative, Urine Ketones Trace, Urine Blood Negative, Urine Nitrate Negative, Urine Bilirubin Negative, Urine Urobilinogen 1.0, Ur Leukocyte Esterase Negative, Urine RBC 5-10, Urine WBC 10-20, Ur Squamous Epith Cells 10-20, Urine Bacteria 3+, Urine Mucus 2+ 02/19/25 17:28 02/19/25 17:28 Orders (Tests/Meds): ED MEDICATIONS Discontinued Medications Generic Name Dose Route Start Last Admin Trade Name Raymond PRN Reason Stop Dose Admin Acetaminophen 650 mg 02/19/25 20:51 02/19/25 21:23 Acetaminophen 650mg Suppository RC 02/19/25 20:52 650 mg ONCE ONE Administration Sodium Chloride 1,000 mls @ 999 mls/hr 02/19/25 17:25 02/19/25 20:32 Sod Chlor 0.9% 1000ml Bag IV 02/19/25 18:25 Infused .Q1H1M ONE Infusion Piperacillin Sod/Tazobactam 50 mls @ 100 mls/hr 02/19/25 17:39 02/19/25 19:09 Sod 3.375 gm/ Sodium Chloride IV 02/19/25 18:08 Infused ONCE ONE Infusion Vancomycin HCl 2,000 mg/ 500 mls @ 250 mls/hr 02/19/25 18:15 02/19/25 20:56 Sodium Chloride IV 02/19/25 20:14 250 mls/hr ONCE ONE Administration Clindamycin Phosphate 600 mg in 50 mls @ 100 mls/hr 02/19/25 19:04 02/19/25 21:24 Clindamycin 600mg/50ml D5w Premix IV 02/19/25 19:33 Infused ONCE ONE Infusion Iopamidol 75 ml 02/19/25 18:41 02/19/25 18:41 Iopamidol-370 (76%);100ml Bottle IV 02/19/25 18:42 75 ml ONCE ONE Administration Miscellaneous 1 each 02/19/25 17:45 Vancomycin Consult Request NOTAPPLIC 03/21/25 17:44 CONSULT PHARMACY COUNTS INCLUDE 234 BEDS AT THE [facility] Sodium Chloride 10 ml 02/19/25 18:41 02/19/25 18:42 Sodium Chloride 0.9% 10ml Syr (Rad Only) IV 03/21/25 18:40 10 ml NEEDED PRN Administration Maintain IV Site ORDERS Category Date Time Status CT abdomen pelvis w con Stat Cat Scan 02/19/25 17:25 Completed XR chest portable Stat Exams 02/19/25 17:59 Completed Complete Blood Count Auto Diff Stat Lab 02/19/25 17:28 Completed Comprehensive Metabolic Panel Stat Lab 02/19/25 17:28 Completed HIV Combo Stat Lab 02/19/25 17:05 Completed Hepatitis C Ab Qual. W/ RFX Stat Lab 02/19/25 17:05 Completed Lactic Acid Stat Lab 02/19/25 17:28 Completed Procalcitonin Stat Lab 02/19/25 17:28 Completed Urinalysis and Microscopic Stat Lab 02/19/25 17:28 Completed Blood Culture Stat Micro 02/19/25 17:28 Received Urine Culture Stat Micro 02/19/25 17:28 Received Wound Culture and Gram Stain Stat Micro 02/19/25 17:13 Results Venous Blood Gas Stat RT 02/19/25 17:28 Completed Medical Decision Narrative: Initial impression of presenting illness: 74-year-old female with a history of previous CVA presents to the emergency department via EMS after neighbors called concerned that patient was not being properly cared for. Per EMS patient lives at home with her who helps care for her. They state that patient has home health come out to help with chronic decubitus ulcers that she has. EMS reports that neighbor became concerned on checking with patient today when she was found to be lying in a urine soaked bed. Upon arrival to the emergency department patient does not have any family here to clarify the surrounding circumstances of her being here. Differential diagnosis includes but is not limited to: Sepsis, decubitus ulcers, dehydration, osteomyelitis, fistula, abscess, urinary tract infection, pneumonia Patient arrives hemodynamically stable, afebrile, without respiratory distress with vital signs interpreted by myself. Initial physical exam reveals a moderate size stage III decubitus to patient's right buttock. There is a large amount of foul-smelling drainage coming from this wound. No surrounding cellulitis. Patient also has a stage II decubitus to her coccyx. There is no drainage noted from these wounds. There is surrounding cellulitis. Patient's extremities are contracted. She does appear to be uncomfortable when attempting to manipulate her extremities or move her around in the bed. Patient is attempting to communicate with us however his speech is very garbled and difficult to understand. There is not any family at bedside to obtain a health history or question about her current living situation. Initial diagnostic plan: Sepsis workup including CT of abdomen pelvis with IV contrast, normal saline bolus for hydration, Banken Zosyn for treatment of infection, wound culture. Will have nursing staff clean patient's wounds with chlorhexidine and pack her wounds with Betadine soaked gauze. Will gently rehydrate patient as she does have a history of heart failure. Will start with 1 L of normal saline as did not volume overload patient. Results from initial plan were reviewed and interpreted by myself, pertinent positives include: White blood cell count 21.2, rest of laboratory studies were nonactionable. Urinalysis was positive for 5-10 red blood cells, 10-20 white blood cells, 10-20 squamous cells per high-power field with 3+ bacteria chest x- ray was unremarkable for acute findings. CT of the abdomen pelvis with IV contrast shows abscess in the right proximal thigh laterally that appears to be related to a deep decubitus ulcer at the greater trochanter. This was concerning for necrotizing fasciitis per the radiologist. Interventions in the ED: Patient was given normal saline bolus for hydration as well as vancomycin, Zosyn, clindamycin for treatment of necrotizing fasciitis. Consultation/discussion with other physicians: Nursing staff is reaching out to [facility] to see if we can have patient transferred to their facility for treatment of necrotizing fasciitis. We are awaiting return phone call at this time. I spoke with [facility] Steele provider Dr. Ghosh regarding patient's presenting complaint and workup findings. He recommended that I contact patient's family to see what their wishes were as far as if they were agreeable to send patient to [facility] for surgical interventions. I then spoke with patient's daughter, Analy, who states that they would like to move forward with transfer to for surgical intervention. I am awaiting return phone call from general surgery provider. Received a phone call back from [facility] transfer center. The nursing staff working at [facility] states that after speaking with general surgery provider they have agreed to accept patient to [place] emergency department for further evaluation of her necrotizing fasciitis. Patient was accepted on behalf of Dr. Ghosh at [facility]. <Baldomero Hanley MD - Last Filed: 02/19/25 23:17> Vital Signs: 02/19/25 17:31 02/19/25 17:48 02/19/25 18:00 Temperature 100 F H 99.7 F H Temperature Source Core Pulse Rate 71 71 Pulse Rate [Right Radial] 71 Respiratory Rate 19 Blood Pressure 173/51 H 177/56 H Blood Pressure [Right Arm] 168/73 H Blood Pressure Mean [Right Arm] 104 Blood Pressure Source Blood Pressure Source [Right Arm] Automatic Cuff Blood Pressure Position Blood Pressure Position [Right Arm] Supine 02 Sat by Pulse Oximetry 98 99 99 Oxygen Delivery Method Room Air 02/19/25 19:00 02/19/25 19:30 02/19/25 20:00 Temperature 100.2 F H 100.4 F H 100.9 F H Temperature Source Pulse Rate 86 82 75 Pulse Rate [Right Radial] Respiratory Rate Blood Pressure 175/65 H 179/81 H 172/49 H Blood Pressure [Right Arm] Blood Pressure Mean [Right Arm] Blood Pressure Source Blood Pressure Source [Right Arm] Blood Pressure Position Blood Pressure Position [Right Arm] 02 Sat by Pulse Oximetry 97 99 98 Oxygen Delivery Method 02/19/25 20:31 02/19/25 21:01 02/19/25 21:21 Temperature 101.3 F H 101.3 F H 100.9 F H Temperature Source Core Pulse Rate 79 71 86 Pulse Rate [Right Radial] Respiratory Rate 16 Blood Pressure 158/69 H 146/52 H 146/52 H Blood Pressure [Right Arm] Blood Pressure Mean [Right Arm] Blood Pressure Source Automatic Cuff Blood Pressure Source [Right Arm] Blood Pressure Position Supine Blood Pressure Position [Right Arm] 02 Sat by Pulse Oximetry 97 98 Oxygen Delivery Method Room Air 02/19/25 21:31 Temperature 101.3 F H Temperature Source Pulse Rate Pulse Rate [Right Radial] Respiratory Rate Blood Pressure 141/69 H Blood Pressure [Right Arm] Blood Pressure Mean [Right Arm] Blood Pressure Source Blood Pressure Source [Right Arm] Blood Pressure Position Blood Pressure Position [Right Arm] 02 Sat by Pulse Oximetry Oxygen Delivery Method Lab Data Lab Results 02/19/25 17:05: HCV Ab COLLEEN w/Rflx PCR Qn Negative, HIV Ag/Ab Combo Qual Negative 02/19/25 17:28: WBC 21.2 H*, RBC 3.08 L, Hgb 9.0 L, Hct 29.4 L, MCV 95.5, MCH 29.2, MCHC 30.6 L, RDW 15.4, Plt Count 493 H, MPV 8.9, Neut % (Auto) 88.7 H, L ymph % (Auto) 4.6 L, [place] % (Auto) 5.6, Eos % (Auto) 0.0 L, Baso % (Auto) 0.3, N eut # (Auto) 18.8 H, Lymph # (Auto) 1.0, [place] # (Auto) 1.2 H, Eos # (Auto) 0.0, Baso # (Auto) 0.1, VBG pH 7.36, VBG pCO2 44.7, VBG pO2 38.9, VBG HCO3 24.9, VBG Total CO2 26.2, VBG O2 Saturation 70.3 H, VBG Base Excess -0.5, VBG Lactic Acid 1.6, Sodium 128 L, Potassium 3.6, Chloride 93 L, Carbon Dioxide 28, Anion Gap 10.6, BUN 20 H, Creatinine 0.80, Estimated Creat Clear 75, Estimated GFR 70, Est GFR ( Amer) 84, Glucose 137 H, Lactate 1.2, Calcium 8.2 L, Total Bilirubin 1.0, AST 21, ALT 11 L, Alkaline Phosphatase 146 H, Total Protein 6.3, Albumin 2.9 L, Globulin 3.4 H, Albumin/Globulin Ratio 0.9 L, Procalcitonin 0.283, Urine Color Yellow, Urine Appearance Clear, Urine pH 6.0, Ur Specific [place] 1.020, Urine Protein 2+ A, Urine Glucose (UA) Negative, Urine Ketones Trace, Urine Blood Negative, Urine Nitrate Negative, Urine Bilirubin Negative, Urine Urobilinogen 1.0, Ur Leukocyte Esterase Negative, Urine RBC 5-10, Urine WBC 10-20, Ur Squamous Epith Cells 10-20, Urine Bacteria 3+, Urine Mucus 2+ Orders (Tests/Meds): ED MEDICATIONS Discontinued Medications Generic Name Dose Route Start Last Admin Trade Name Raymond PRN Reason Stop Dose Admin Acetaminophen 650 mg 02/19/25 20:51 02/19/25 21:23 Acetaminophen 650mg Suppository RC 02/19/25 20:52 650 mg ONCE ONE Administration Sodium Chloride 1,000 mls @ 999 mls/hr 02/19/25 17:25 02/19/25 20:32 Sod Chlor 0.9% 1000ml Bag IV 02/19/25 18:25 Infused .Q1H1M ONE Infusion Piperacillin Sod/Tazobactam 50 mls @ 100 mls/hr 02/19/25 17:39 02/19/25 19:09 Sod 3.375 gm/ Sodium Chloride IV 02/19/25 18:08 Infused ONCE ONE Infusion Vancomycin HCl 2,000 mg/ 500 mls @ 250 mls/hr 02/19/25 18:15 02/19/25 20:56 Sodium Chloride IV 02/19/25 20:14 250 mls/hr ONCE ONE Administration Clindamycin Phosphate 600 mg in 50 mls @ 100 mls/hr 02/19/25 19:04 02/19/25 21:24 Clindamycin 600mg/50ml D5w Premix IV 02/19/25 19:33 Infused ONCE ONE Infusion Iopamidol 75 ml 02/19/25 18:41 02/19/25 18:41 Iopamidol-370 (76%);100ml Bottle IV 02/19/25 18:42 75 ml ONCE ONE Administration Miscellaneous 1 each 02/19/25 17:45 Vancomycin Consult Request NOTAPPLIC 03/21/25 17:44 CONSULT PHARMACY COUNTS INCLUDE 234 BEDS AT THE [facility] Sodium Chloride 10 ml 02/19/25 18:41 02/19/25 18:42 Sodium Chloride 0.9% 10ml Syr (Rad Only) IV 03/21/25 18:40 10 ml NEEDED PRN Administration Maintain IV Site ORDERS Category Date Time Status CT abdomen pelvis w con Stat Cat Scan 02/19/25 17:25 Completed XR chest portable Stat Exams 02/19/25 17:59 Completed Complete Blood Count Auto Diff Stat Lab 02/19/25 17:28 Completed Comprehensive Metabolic Panel Stat Lab 02/19/25 17:28 Completed HIV Combo Stat Lab 02/19/25 17:05 Completed Hepatitis C Ab Qual. W/ RFX Stat Lab 02/19/25 17:05 Completed Lactic Acid Stat Lab 02/19/25 17:28 Completed Procalcitonin Stat Lab 02/19/25 17:28 Completed Urinalysis and Microscopic Stat Lab 02/19/25 17:28 Completed Blood Culture Stat Micro 02/19/25 17:28 Received Urine Culture Stat Micro 02/19/25 17:28 Received Wound Culture and Gram Stain Stat Micro 02/19/25 17:13 Results Venous Blood Gas Stat RT 02/19/25 17:28 Completed Tissue Perfus/Sepsis Re-Eval Sepsis Re-Evaluation Performed: Yes Date Performed: 02/19/25 Time Performed: 23:17 Critical Care <Princess Callahan - Last Filed: 02/19/25 20:51> Critical Care Time Critical Care Time: No <J Humble Hanley MD - Last Filed: 02/19/25 23:17> Critical Care Time Critical Care Time: Yes Attestation: On 02/19/25, the high probability of a clinically significant, sudden or life threatening deterioration of the following system(s) required my full and direct attention, intervention and personal management. The time I documented below is in addition to time spent performing reported procedures but includes the following listed in this critical care notation. Total Time Total Critical Care Time: 65
[2025-02-19 17:50] LABS: Microscopic, Urine URINE MICROSCOPIC (MICROSCOPIC)
--- OUTSIDE RECORDS SUMMARY | 2025-02-19 17:50 | XMS_ITS | Data Portability ---
Author Organization [facility] - Garett donahue MD, Main Office Address [address] [place] [address], [facility] [address] [place] [address] Assessment No assessment recorded. Plan of Treatment Reminders Order Date Submit Date Provider Last Modified By Organization Details Last Modified Time Details Appointments None record ed. Lab None record ed. Referral None record ed. Procedures None record ed. Surgeries None record ed. Imaging None record ed. Medication Orders None record ed. Patient TargetsNo targets recorded. Patient Instructions Encounter Date Encounter Id Patient Instructions Last Modified By Organization Details Last Modified Time 04/18/2018 [id number] Neuropathic Pain : Care Instructions Not available 04/18/2018 14:16:42 Neck Pain: Care Instructions Not available 04/18/2018 14:16:42 Carpal Tunnel Syndrome: Care Instructions Not available 04/18/2018 14:16:42 Reason for Referral None Reported. Results Created Date Observation Date Name Description Value Unit Range Abnormal Flag Note LastModifiedBy Organization Detail LastModifiedTime 04/18/19 19 04/18/2018 elect romyo gram + nerve condu ction study No observ ation record ed. BARCODE Not Available 2018 14:16:14 Result Notes None recorded. Problems No Known Problems Procedures Surgical History Date Name Laterality Status Provider Name and Address Organization Details Recorded Time 04/18/2018 NCV/EMG completed Juan Mukherjee MD 04/18/2018 14:08:25 Imaging Results None recorded. Procedure Notes None recorded. Medical Equipment None Reported. Allergies No known drug allergies Medications Name Sig Start Date Stop Date Status Note LastModified by Organization Details LastModified Time metolazone 2.5 mg tablet active Not Available Not Available No t Available carvedilol 25 mg tablet active Not Available Not Available Not Available nitrofurantoin macrocrystal 50 mg capsule active Not Available Not Available N ot Available amoxicillin 125 mg chewable tablet 04/18 completed Not Available Not Available Not Available azithromycin 250 mg tablet 04/18 completed Not Available Not Available Not Available alprazolam 1 mg tablet active Not Available Not Available Not Available methadone 10 mg tablet active Not Available Not Available Not Available meloxicam 15 mg tablet active Not Available Not Available Not Available lisinopril 20 mg tablet active Not Available Not Available Not Available ondansetron HCl 4 mg tablet active Not Available Not Available Not Available alendronate 70 mg tablet active Not Available Not Available No t Available leflunomide 10 mg tablet active Not Available Not Available No t Available clopidogrel 75 mg tablet active Not Available Not Available No t Available omeprazole 40 mg capsule,delayed release active Not Available Not Available Not Available simvastatin 40 mg tablet active Not Available Not Available No t Available alprazolam 0.5 mg tablet 04/18 completed Not Available Not Available Not Available amoxicillin 875 mg tablet 04/18 completed Not Available Not Available Not Available potassium chloride ER 20 mEq tablet,extended release(part/cry st) active Not Available Not Available Not Available oxycodone-acetam inophen 10 mg-325 mg tablet active Not Available Not Avail able Not Available gabapentin 800 mg tablet active Not Available Not Available No t Available phenazopyridine 100 mg tablet active Not Available Not Availabl e Not Available baclofen 10 mg tablet active Not Available Not Available Not Available benzonatate 100 mg capsule active Not Available Not Available N ot Available ranitidine 150 mg tablet active Not Available Not Available No t Available glimepiride 4 mg tablet active Not Available Not Available Not Available omeprazole 20 mg capsule,delayed release 04/18 completed Not Available Not Available Not Available paroxetine 40 mg tablet active Not Available Not Available Not Available Vitamin D2 1,250 mcg (50,000 unit) capsule active Not Available Not Availabl e Not Available atenolol 50 mg tablet active Not Available Not Available Not Available metoclopramide 10 mg tablet active Not Available Not Available Not Available amoxicillin 875 mg-potassium clavulanate 125 mg tablet 04/18 completed Not Available Not Available Not Available topiramate 50 mg tablet active Not Available Not Available Not Available diclofenac 1 % topical gel active Not Available Not Available Not Available Suprep Bowel Prep Kit 17.5 gram-3.13 gram-1.6 gram oral solution active Not Available Not Availabl e Not Available Vitals None Recorded Social History None recorded. Functional Status None recorded. Mental Status None recorded. Family History Nothing Reported. Medical History No medical history recorded. Gynecological HistoryNo gynecological history recorded. Obstetrics History GPAL:G 0 P 0 0 0 0 Past Encounters Encounter ID Performer Location Encounter Start Date Encounter Closed Date Diagnosis/Indication Diagnosis SNOMED-CT Code Diagnosis ICD10 Code Diagnosis IMO Codes Diagnosis Note [id number] Garett Mukherjee MD Main Office [address], [facility] [address] [place] [address] 04/18/2018 12:51:27 04/18/2018 13:41:30 Bilateral carpal tunnel syndrome [id number] G56.03 Moderate to sever bilateral CTS. Lesion of ulnar nerve 36 [id number] G56.23 Moderate to severe bilateral UNE at both elbows. Cervical radiculopathy 09320960 M54.12 Mild chronic right C6 radiculopa thy. Idiopathic peripheral neuropathy 92021357 G60.9 Health Concerns Section Related Observation LastModified by Organization Detai ls LastModified Time None Recorded Concern Status LastModified by Organization Details LastModified Time None Recorded Advance Directives Directive None Recorded Payers Insurance Date Sequence Insurance Name Policy Number Policy Ivey Covered Member ID Ivey Member ID Guarantor Name 04/18/2018 2 [employer] (MEDICARE SUPPLEMENT) Yolanda Agosto [id number] Yolanda Agosto 04/18/2018 1 [place] Yolanda Agosto [id number] Yolanda Agosto OBGyn Episode No OBEpisode recorded.
--- OUTSIDE RECORDS SUMMARY | 2025-02-19 17:50 | XMS_ITS | Clinical Summary ---
Author Organization [facility] Address [address] [place] [address] Care Team Providers Care Switchboard Troubleshooter Name Role Phone Kb Hernández Primary Care [...] Times a Day With Meals. 4 Active simvastatin (ZOCOR) 40 MG tablet Take 1 tablet by mouth Every Night. 5 Active Cyanocobalamin (VITAMIN B-12 IJ) Inject as directed Every 30 (Thirty) Days. Active alendronate (FOSAMAX) 70 MG tablet Take 1 tablet by mouth Every 7 (Seven) Days. On Mondays Active vitamin D (ERGOCALCIFEROL ) 24662 UNITS capsule capsule Take 1 capsule by mouth 1 (One) Time Per Week. 2x a week Active sitaGLIPtin (JANUVIA) 100 MG tablet Take 1 tablet by mouth Daily. Active cyclobenzaprine (FLEXERIL) 10 MG tablet Take 1 tablet by mouth 3 (Three) Times a Day As Needed for Muscle Spasms. Active oxyCODONE-aceta minophen (PERCOCET) 10-325 MG per [...] tablet RESTART when METOLAZONE restarted 0 Active lisinopril (PRINIVIL,ZESTR IL) 20 MG tablet Take 1 tablet by mouth Daily. 30 tablet 0 Active carvedilol (COREG) 25 MG tablet Take 1 tablet by mouth Every 12 (Twelve) Hours. 60 tablet 0 Active clopidogrel (PLAVIX) 75 MG tablet Take 1 tablet by mouth Daily. 30 tablet 0 Active atorvastatin (LIPITOR) 40 MG tablet 5 Active benzonatate (TESSALON) 100 MG capsule Active Diclofenac Sodium (VOLTAREN) 1 % gel gel Active docusate sodium 250 MG capsule Two times a day Active Etanercept (Enbrel SureClick) 50 MG/ML solution auto-injector Enbrel SureClick 50 mg/mL (1 mL) subcutaneous pen injector inject one sc once weekly every week Active folic acid (FOLVITE) 1 MG tablet folic acid 1 mg tablet take one po daily Active hydrOXYzine (ATARAX) 10 MG tablet 5 Active meloxicam (MOBIC) 15 MG tablet Active Morphine (MS CONTIN) 15 MG 12 hr tablet 5 Active QUEtiapine (SEROquel) 50 MG tablet 5 Active trospium (SANCTURA) 20 MG tablet 5 Active prochlorperazin e (COMPAZINE) 5 MG tablet 5 Active ALPRAZolam (XANAX) 1 MG tablet Active gabapentin (NEURONTIN) 800 MG tablet Active lisinopril (PRINIVIL,ZESTR IL) 20 MG tablet Take 1 tablet by mouth Daily. Active omeprazole (priLOSEC) 40 MG capsule Active ondansetron (ZOFRAN) 8 MG tablet denied- ordering physician no longer with department Active insulin NPH (humuLIN N,novoLIN N) 100 UNIT/ML injection Inject 12 Units under the skin into the appropriate area as directed 2 (Two) Times a Day Before Meals. Active Insulin Glargine-Lixise natide (SOLIQUA SC) Inject under the skin into the appropriate area as directed. Active irbesartan (AVAPRO) 300 MG tablet Take 1 tablet by mouth Every Night. Active Active Problems Problem Noted Date Diagnosed [...] Description 12/17/2024 8:02 AM EDT Anesthesia Event [facility] [address] [place] [address] Marck Ferguson MD Wells, Jeremy B., MD 12/17/2024 7:45 AM EDT - 12/17/2024 9:29 AM EDT Surgery [facility] [address] [place] [address] FLUSHER DRIVER ACCESS LEFT, AORTOGRAM, RIGHT STREET FLUSHER DRIVER/SFA/POP ATHERECTOMY, STREET FLUSHER DRIVER/SFA/POP/AT/DP/T PT/PT/PLANTAR/ARCH ANGIOPLASTY, POPLITEAL STENT 12/17/2024 6:14 AM EDT - 12/17/2024 1:00 PM EDT Hospital Encounter [facility] [address] [place] [address] Aman Jimenez MD Discharge Disposition: Home or Self Care 12/17/2024 Travel 12/14/2024 8:30 AM EDT Pre-Admission Testing [facility] PREADMISSION T [address] [place] [address] 12/14/2024 Travel from Last 3 Months Family [...] or training? Not on file Preferred Language Mauritanian 12/14/2024 Comments No Sex and Gender Information [...] 12/17/2024 7:28 AM EDT Plan of Treatment Upcoming Encounters Date Type Department Care Team (Late st Contact Info) Description 02/28/2025 10:00 AM EST Appointment [facility] [address] [place] [address] 02/28/2025 11:00 AM EST Appointment [facility] [address] [facility] [address] [place] [address] Health Maintenance Due Date Last Done Comments [...] Completed 02/09/2023 Medical Devices Implanted Type Area Assisted Living Assistant Device Identifier Shelf Expiration Date Model / Serial / Lot Stentgr Endoprosth Viabahn Ro Hep 6f 5mm [id number] - [id number] - [id number] Implanted:Qty: 1 on 12/17/2024 by Aman Jimenez MD at [facility] Implant N/A: [employer] [id number] 05/01/2027 [id number] / [id number] / Procedures Procedure Name Priority Date/Time Associated Diagnosis Comments XR [place] OR PROCEDURE Routine 12/17/2024 10:05 AM EDT AORTOGRAM WITH OR WITHOUT RUNOFFS POSSIBLE STENT 12/17/2024 7:45 AM EDT POCT GLUCOSE FINGERSTICK Routine 12/17/2024 7:21 AM EDT PROTIME-INR Routine 12/14/2024 9:21 AM EDT BASIC METABOLIC PANEL Routine 12/14/2024 9:21 AM EDT CBC (NO DIFF) Routine 12/14/2024 9:21 AM EDT HEMOGLOBIN A1C Routine 05/02/2018 2:05 PM EDT Diabetes mellitus with no complication from Last 3 Months or Most Recently Relevant to Health Maintenance Results * XR [place] OR Procedure (12/17/2024 10:05 AM EDT) us Aman Jimenez MD IMG DIAGNOSTIC IMAGING ORD ERABLES Final Result * (ABNORMAL) POC Glucose Once (12/17/2024 7:21 AM EDT) Glucose 188(H) 70 - 130 mg/dL 01/04/2025 7:50 AM EST [facility] Comment:Serial Number: [id number]: [id number] Blood 12/17/2024 7:21 AM EDT 01/04/2025 7:50 AM EST us Aman Jimenez MD POINT OF CARE TEST ORDERAB LES Final Result [facility]
[address] [place] [address], * Protime-INR (12/14/2024 9:21 AM EDT) Protime 13.3 12.2 - 15.3 Seconds 12/14/2024 11:18 AM EDT [facility] INR 0.96 0.89 - 1.12 12/14/2024 11:18 AM EDT [facility] Blood Venipuncture / Unknown 12/14/2024 9:21 AM EDT 12/14/2024 11:12 AM EDT Aman Jimenez MD LAB BLOOD ORDERABLES Final Result [facility]
[address] [id number], * (ABNORMAL) CBC (No Diff) (12/14/2024 9:21 AM EDT) WBC 10.97(H) 3.40 - 10.80 10*3/mm3 12/14/2024 11:27 AM EDT [facility] RBC 3.74(L) 3.77 - 5.28 10*6/mm3 12/14/2024 11:27 AM EDT [facility] Hemoglobin 12.3 12.0 - 15.9 g/dL 12/14/2024 11:27 AM EDT [facility] Hematocrit 39.5 34.0 - 46.6 % 12/14/2024 11:27 AM EDT [facility] MCV 105.6(H) 79.0 - 97.0 fL 12/14/2024 11:27 AM EDT [facility] MCH 32.9 26.6 - 33.0 pg 12/14/2024 11:27 AM EDT [facility] MCHC 31.1(L) 31.5 - 35.7 g/dL 12/14/2024 11:27 AM EDT [facility] RDW 14.8 12.3 - 15.4 % 12/14/2024 11:27 AM EDT [facility] RDW-SD 57.9(H) 37.0 - 54.0 fl 12/14/2024 11:27 AM EDT [facility] MPV 9.0 6.0 - 12.0 fL 12/14/2024 11:27 AM EDT [facility] Platelets 497(H) 140 - 450 10*3/mm3 12/14/2024 11:27 AM EDT [facility] Blood Venipuncture / Unknown 12/14/2024 9:21 AM EDT 12/14/2024 11:19 AM EDT Aman Jimenez MD LAB BLOOD ORDERABLES Final Result [facility]
[address] [place] [address], * Basic Metabolic Panel (12/14/2024 9:21 AM EDT) Glucose 94 65 - 99 mg/dL 12/14/2024 11:48 AM EDT [facility] BUN 10.4 8.0 - 23.0 mg/dL 12/14/2024 11:48 AM EDT [facility] Creatinine 0.58 0.57 - 1.00 mg/dL 12/14/2024 11:48 AM EDT [facility] Sodium 141 136 - 145 mmol/L 12/14/2024 11:48 AM EDT [facility] Potassium 4.1 3.5 - 5.2 mmol/L 12/14/2024 11:48 AM EDT [facility] Chloride 105 98 - 107 mmol/L 12/14/2024 11:48 AM EDT [facility] CO2 22.6 22.0 - 29.0 mmol/L 12/14/2024 11:48 AM EDT [facility] Calcium 9.3 8.6 - 10.5 mg/dL 12/14/2024 11:48 AM EDT [facility] BUN/Creatinine Ratio 17.9 7.0 - 25.0 12/14/2024 11:48 AM EDT [facility] Anion Gap 13.4 5.0 - 15.0 mmol/L 12/14/2024 11:48 AM EDT [facility] eGFR 93.9 >60.0 mL/min/1.7 3 12/14/2024 11:48 AM EDT [facility] Blood Venipuncture / Unknown 12/14/2024 9:21 AM EDT 12/14/2024 11:33 AM EDT Narrative [facility] - 12/14/2024 11:48 AM EDT GFR [...] BLOOD ORDERABLES Final Result Performing Organization Address [facility] Co de Phone Number [facility]
[address] [place] [address], * (ABNORMAL) Hemoglobin A1c (05/02/2018 2:05 PM EDT) Hemoglobin A1C 11.10(H) 4.80 - 5.60 % 05/02/2018 7:29 PM EDT [facility] Blood Venipuncture / Unknown 05/02/2018 2:05 PM EDT 05/02/2018 2:06 PM EDT Narrative [facility] - 05/02/2018 7:29 PM EDT The [place] [employer] recommends maintenance of Hemoglobin A1C at 7.0% or lower. Goals for Hemoglobin A1C reduction may need to be modified if hypoglycemia is a problem. Antonio Ta MD LAB BLOOD ORDERABLES Final R esult Performing Organization Address City/[facility]/ZIP Co de Phone Number [facility]
[address] [place] [address], from Last 3 Months or Most Recently [...] 2:07 AM 04/09/2017 4:11 PM Care Teams Switchboard Troubleshooter Relationship Specialty Start Date End Date Kb Hernández DO [address] [place] [address] PCP - General Internal Medicine 04/09/23
--- OUTSIDE RECORDS SUMMARY | 2025-02-19 17:50 | XMS_ITS | Data Portability ---
Author Organization [facility] Desai [place] CLOSED Address [address] [facility] [address] [place] [address] Assessment No assessment recorded. Plan of Treatment Reminders Order Date Submit Date Provider Last Modified By Organization Details Last Modified Time Details Appointments None recorded. Lab CBC w/ auto diff 2020 021 [facility], [address] [place] [address], [address], 12:50:11 creatinine , serum or plasma 2020 021 [facility], [address] [place] [address], [address], 1 12:50:12 ALT (alanine aminotrans ferase), serum or plasma 2020 021 [facility], [address] [place] [address], [address], 12:50:12 ESR (erythrocy te sedimentat ion rate), blood 2020 021 [facility], [address] [place] [address], [address], 1 12:50:12 AST/SGOT (aspartate aminotrans ferase), serum or plasma 2020 021 [facility], [address] [place] [address], [address], 1 12:50:12 bun (blood urea nitrogen), serum or plasma 2020 021 [facility], [address] [place] [address], [address], 1 12:50:12 Mycobacter ium tuberculos is stimulated gamma interferon , qual, blood 2020 021 [facility], [address] [place] [address], [address], 1 12:50:12 CBC w/ auto diff 2018 019 [facility], [address] [place] [address], [address], 9 15:40:25 ESR (erythrocy te sedimentat ion rate), blood 2018 019 [facility], [address] [place] [address], [address], 9 17:10:01 ALT (alanine aminotrans ferase), serum or plasma 2018 019 [facility], [address] [place] [address], [address], 9 16:28:09 AST/SGOT (aspartate aminotrans ferase), serum or plasma 2018 019 [facility], [address] [place] [address], [address], 9 16:28:08 creatinine , serum or plasma 2018 019 [facility], [address] [place] [address], [address], 9 16:28:11 Referral None recorded. Procedures None recorded. Surgeries None recorded. Imaging None recorded. Medication Orders prednisone 5 mg tablet 2020 [facility]62, [address], [address], 15:12:29 baclofen 10 mg tablet 2020 [facility], [address] [facility], [place], [address], 16:07:52 prednisone 5 mg tablet 2020 [facility], [address] [facility], [place], [address], 16:07:52 Medrol (Patricio) 4 mg tablets in a dose pack 2020 [facility] 591, [address] [place], [address], 16:18:27 baclofen 20 mg tablet 2020 021 [facility] 591, [address] [place], [address], 15:10:02 prednisone 2.5 mg tablet 2019 [facility], [address] [facility], [place], [address], 16:15:44 leflunomid e 10 mg tablet 2019 [facility], [address] [facility], [place], [address], 16:15:37 Depo-Medro l 80 mg/mL suspension for injection 2018 019 [facility] Not available 15:11:13 Enbrel SureClick 50 mg/mL (1 mL) subcutaneo us pen injector 2018 019 [facility]), [address] [address], [place], [address], 1 16:14:58 gabapentin 800 mg tablet 2018 019 [facility], [address] , [place], [address], 1 16:15:32 Mobic 15 mg tablet 2018 019 [facility], [address] [facility] , [place], [address], 9 14:18:47 leflunomid e 10 mg tablet 2018 019 [id number], [address], [id number], 16:15:37 Patient TargetsNo targets recorded. Patient Instructions Encounter Date Encounter Id Patient Instructions Last Modified By Organization Details Last Modified Time 09/08/2018 [id number] eating healthy foods: care instructions [facility] Not available 09/08/2018 14:18:46 Reason for Referral None Reported. Results Created Date Observation Date Name Description Value Unit Range Abnormal Flag Note LastModifiedBy Organization Detail LastModifiedTime 09/09/1909/08/2018 CBC w/ auto diff white blood cells 11.0 K/uL 3.8-10 .8 high Not Available [facility] [place], [address], 09/08/2018 15:40:25 09/09/1909/08/2018 CBC w/ auto diff red blood cells 3.71 M/uL 3.80-5 .20 low Not Available [facility] [address] [place], [address], 09/08/2018 15:40:25 09/09/1909/08/2018 CBC w/ auto diff hemoglobin 11.6 g/dL 12.0-1 6.0 low Not Available [facility] [place], [address], 09/08/2018 15:40:25 09/09/19 19 09/08/2018 CBC w/ auto diff hematocrit 35.7 % 35.0-4 7.0 normal Not Available [facility] [address] [place] [address], [address], 09/08/2018 15:40:25 09/09/1909/08/2018 CBC w/ auto diff MCV 96 fL 80-100 normal Not Available [facility] [address] [place] [address], [address], 09/08/2018 15:40:25 09/09/1909/08/2018 CBC w/ auto diff MCH 31 pg 26-35 normal Not Available [facility] [address] [place] [address], [address], 09/08/2018 15:40:25 09/09/1909/08/2018 CBC w/ auto diff MCHC 32 g/dL 32-36 normal Not Available [facility] [address] [place] [address], [address], 09/08/2018 15:40:25 09/09/1909/08/2018 CBC w/ auto diff RDW 15.1 % 11.0-1 5.0 high Not Available [facility] [address] [place] [address], [address], 09/08/2018 15:40:25 09/09/1909/08/2018 CBC w/ auto diff MPV 7.8 fL 6.2-10 .5 normal Not Available [facility] [address] [place] [address], [address], 09/08/2018 15:40:25 09/09/1909/08/2018 CBC w/ auto diff platelet count 321 K/uL 130-40 0 normal Not Available [facility] [address] [place] [address], [address], 09/08/2018 15:40:25 09/09/1909/08/2018 CBC w/ auto diff neutrophil,a bsolute 8.2 K/uL 1.6-8. 4 normal Not Available [facility] [address] [place] [address], [address], 09/08/2018 15:40:25 09/09/1909/08/2018 CBC w/ auto diff lymphocyte,a bsolute 1.7 K/uL 0.4-5. 1 normal Not Available [facility] [address] [place] [address], [address], 09/08/2018 15:40:25 09/09/1909/08/2018 CBC w/ auto diff monocyte,abs olute 0.8 K/uL 0.0-1. 2 normal Not Available [facility] [address] [place] [address], [address], 09/08/2018 15:40:25 09/09/1909/08/2018 CBC w/ auto diff eosinophil,a bsolute 0.1 K/uL 0.0-0. 8 normal Not Available [facility] [address] [place] [address], [address], 09/08/2018 15:40:25 09/09/1909/08/2018 CBC w/ auto diff basophil,abs olute 0.1 K/uL 0.0-0. 3 normal Not Available [facility] [address] [place] [address], [address], 09/08/2018 15:40:25 09/09/1909/08/2018 CBC w/ auto diff % neutrophils 74.9 % 42.0-7 8.0 normal Not Available [facility] [address] [place] [address], [address], 09/08/2018 15:40:25 09/09/1909/08/2018 CBC w/ auto diff % lymphocytes 15.8 % 11.0-4 7.0 normal Not Available [facility] [address] [place] [address], [address], 09/08/2018 15:40:25 09/09/1909/08/2018 CBC w/ auto diff % monocytes 7.5 % 0.0-11 .0 normal Not Available [facility] [address] [place] [address], [address], 09/08/2018 15:40:25 09/09/1909/08/2018 CBC w/ auto diff % eosinophils 1.0 % 0.0-7. 0 normal Not Available [facility] [address] [place] [address], [address], 09/08/2018 15:40:25 09/09/1909/08/2018 CBC w/ auto diff % basophils 0.8 % 0.0-3. 0 normal Not Available [facility] [address] [place] [address], [address], 09/08/2018 15:40:25 09/09/19 19 09/08/2018 CBC w/ auto diff nucleated red cells 0.0 % 0.0-0. 9 normal Not Available [facility] [address] [place] [address], [address], 09/08/2018 15:40:25 09/09/1909/08/2018 CBC w/ auto diff nucleated RBCs, absolute 0.00 K/uL not estab. normal Not Available [facility] [address] [place] [address], [address], 09/08/2018 15:40:25 09/09/1909/08/2018 AST/S GOT (aspa rtate amino trans feras e), serum or plasm a AST 8 U/L 0-32 normal Not Available [facility] [address] [place] [address], [address], 09/08/2018 16:28:08 09/09/1909/08/2018 ALT (clara ine amino trans feras e), serum or plasm a ALT <5 U/L 0-33 normal Not Available [facility] [address] [place] [address] [place], [address], 09/08/2018 16:28:09 09/09/19 19 09/08/2018 creat inine , serum or plasm a creatinine 1.37 mg/dL 0.50-0 .95 high Not Available [facility] [address] [place], [address], 09/08/2018 16:28:10 09/09/19 19 09/08/2018 ESR (eryt hrocy te sedim entat ion rate) , blood ESR, automated 56 mm/HR 0-29 high Not Available [facility] [address] [place], [address], 09/08/2018 17:10:01 Result Notes None recorded. Problems Name Problem SNOMED Code Status Onset Date Resolution Date Notes Provider Name and Address Organization Details Recorded Time Seroposit roberto rheumatoi d arthritis 394290318 Active 2015 From Automated Load;Provi adeline: Fredy Ron atus: Active Not Available [facility] 6 01:27:46 Sciatica 97976319 Active 2015 From Automated Load;Provi adeline: Karlie Ron; atus: Active Not Available [facility] 6 01:27:46 Fibromyal akshat 885980267 Active 2015 From Automated Load;Provi adeline: Samuel Polo;Sta tus: Active Not Available [facility] 6 01:27:46 Chronic pain syndrome 241539944 Active 2015 From Automated Load;Provi adeline: Samuel Polo;Sta tus: Active Not Available [facility] 6 01:27:46 Problem Notes None recorded. Procedures Surgical History Date Name Laterality Status Provider Name and Address Organization Details Recorded Time 9 Injection - Joint/Bursa, Major, w/o US completed KARLIE RON APRN [address] [place], [address], [facility] 09/17/2018 23:22:11 8 Injection - Joint/Bursa, Major, w/o US completed KARLIE RON, VEGETABLE TRIMMER [address] [place], [address], [facility] 06/20/2017 13:07:44 7 Injection - Joint/Bursa, Major, w/o US completed KARLIE RON, VEGETABLE TRIMMER [address] [place], [address], [facility] 10/19/2016 16:32:12 7 Injection - Joint/Bursa, Major, w/o US completed KARLIE RON, VEGETABLE TRIMMER [address] [place], [address], [facility] 04/12/2016 20:55:49 Joint Replacement completed [facility] 10/19/2016 15:41:07 Orthopedic Surgery completed [facility] 10/19/2016 15:41:23 Eye Surgery completed [facility] 10/19/2016 15:41:36 Other [facility] 15:41:48 Registration Coordinator Surgery completed [facility] 10/19/2016 15:42:00 Imaging Results None recorded. Procedure Notes None recorded. Medical Equipment None Reported. Allergies Allergen ID Allergen Name Allergen Category Reaction Reaction Severity Criticality Documentation Date Start Date Code Code System Note Provider Name and Address Organization Details Recorded Time 651512 codeine medicatio n Not available Not available Not available 01/15/20162014 2670 RxNorm Comme nt: Creat ed By: Nelli MeyersCrea gerber Date: 2014 10:18 :57 AM; Not Available [facility] 6 10:30:34 [id number] Keflex medicatio n Not available Not available Not available 01/15/20162014 21750 7 RxNorm Comme nt: Creat ed By: Nelli Tripletta gerber Date: 2014 10:18 :49 AM; Not Available [facility] 6 10:48:33 Medications Name Sig Start Date [...] mg by injectio n route. 09/25 completed [facility] [phone] 04-21 Not Available Not Available Not Available Glucophag [...] day by oral route for 90 days. 04/20/ 2020 04/13 /2021 completed NO PA NEEDED Not Available Not [...] cm 98 [degF] CHAZ AVILES MD [address] [place], [address] [place] [address] 03/25/2020 11:19:05 Date Recorded Body height Provider Name an d Address Organization Details Last Updated DateTime 06/03/2020 157.48 cm Tabitha Oconnor [facility] 06/03/2020 15:20:20 Date Recorded Body height Body temperature Respiratory rate Heart rate Provider Name and Address Organization Details Last Updated DateTime 06/11/2019 157.48 cm 97 [degF] 16 /min 76 /min CHAZ AVILES MD [address] [facility] [place], [address] [place] [address] 06/11/2019 15:26:41 Date Recorded Body height Respiratory rate Heart rate Systolic And Diastolic Provider Name and Address Organization Details Last Updated DateTime 09/08/2018 157.48 cm 18 /min 62 /min 96/56 mm[Hg] Ajay Stanley [facility] 09/08/2018 13:56:22 Date Recorded Body height Provider Name an d Address Organization Details Last Updated DateTime 09/25/2020 157.48 cm Tabithalam Davislivan [facility] 09/25/2020 14:57:24 Social History Question Answer Notes LastModified by Organizat ion Details LastModified Time Tobacco Smoking Status Former Smoker Angela Linares david [facility] 04/12/2016 16:14:45 What Was The Date Of Your Most Recent Tobacco Screening? 09/08/2018 Information n ot available 04/10/2019 Sex: Unknown Functional Status Question Answer Note LastModified by Organization D etails LastModified Time What is your level of alcohol consumption? None Information not available 10/19/2016 Mental Status None recorded. Family History Relationship Description Onset Age of this Age Resolved Age Notes LastModified by Organization Details LastModified Time Father No current problems or disability [email or web address] Not available 04/12 16:14:32 Mother No current problems or disability Not available 04/12 16:14:32 Mother Arthritis [email or web address] Not availa ble 10/19/2016 15:40:28 Brother Arthritis Not avail able 10/19/2016 15:40:33 Sister Arthritis Not availa ble 10/19/2016 15:40:37 Medical History Condition Response Emphysema N COPD N Diabetes Y Bleeding Disorder N Arthritis Y Acid Reflux (GERD) Y Asthma N Heart Disease N Rheumatoid Arthritis Y Hypertension Y Gynecological HistoryNo gynecological history recorded. Obstetrics History GPAL:G 0 P 0 0 0 0 Past Encounters Encounter ID Performer Location Encounter Start Date Encounter Closed Date Diagnosis/Indication Diagnosis SNOMED-CT Code Diagnosis ICD10 Code Diagnosis IMO Codes Diagnosis Note [id number] KARLIE RON APRN [facility] [address] [place] [address] 04/12/2016 15:26:55 04/12/2016 16:55:02 Seropositive rheumatoid arthritis 451550489 M05.9 chronic and recurring painsno synovitiss ystemic exam is normalcont inue on meds as prescribed below Sciatica 87371775 M54.32 worsening on right sidewill provide with IM injection today80 mg IM injection into right buttocks Fibromyalgia 360769136 M 79.7 stable with a normal systemic examinatio n Nausea and vomiting 1693 1999 R11.2 recurring and symptomati cwill initiate ondansetro n until f/u with pcp Greater tr ochanteric pain syndrome 6259505 M70.61 M70.62 tender to palpwill provide with bilateral greater trochanter ic bursa injections today and f/u in 3 months or sooner prnexacerb ated by chronic low back pain and metal implants [id number] KARLIE RON APRN [facility] [address] [place] [address] 07/12/2016 15:29:59 07/12/2016 16:24:38 Seropositive rheumatoid arthritis 705494809 M05.9 chronic and recurring painsno synovitiss ystemic exam is normalcont inue on meds as prescribed below 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 [id number] 00 Z79.899 chronic and recurring with normal systemic examinatio nlabs and refills today Sciatica 50833723 M54.32 improved overall Chronic pain syndrome 37 7587871 G89.4 continue with pain management Fibromyalgia 095121436 M 79.7 stable with a normal systemic examinatio n [id number] KARLIE RON APRN [facility] [address] [place] [address] 10/19/2016 15:18:18 10/19/2016 16:45:54 long-term methotrexate user [id number] 00 Z79.899 chronic and recurring with normal systemic examinatio nlabs and refills today Fibromyalgia 710405472 M 79.7 stable with a normal systemic examinatio n Sciatica 39687320 M54.32 improved overall; however flared today worse in the right legmay be overlap of the GT bursitis worseningw ill provide with injections today Seropositi ve rheumatoid arthritis 988298060 M05.9 chronic and recurring painsno synovitiss ystemic exam is normalcont inue on meds as prescribed below Bilateral trochanteric bursitis 3089606643 1865880 M70.61 M70.62 very tender with left >righttend er to palpfluid filled sacinjecti ons provided today [id number] DEEPAK BRISCOE APRN [facility] [address] [place] [address] 02/01/2017 15:35:21 02/22/2017 09:14:42 Seropositive rheumatoid arthritis 587823629 M05.9 Seropositi ve RAno synovitis. Maintain enbrel weekly.Kaylee scott mobic 15 mg daily.Phani mcrae arava 20 mg [...] today.Rech lacho 3 months, sooner if needed. 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 Fibromyalgia 885965836 M 79.7 Fibromyalg iaChronic with diffuse tenderness .Followed by pain management who refills her gabapentin . Sciatica 87553806 M54.32 Sciatica has been better.For now will montior. Nausea 771680357 R11.0 c/o of nausea secondary to fibromyalg ia/medsWil l send in zofran okay to take 1 tablet BID as needed. 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 [id number] 00 Z79.899 chronic and recurring with normal systemic examinatio nlabs and refills today Fibromyalgia 723334958 M 79.7 stable with a normal systemic examinatio n Sciatica 01996502 M54.32 improved overall; however flared today worse in the right legmay be overlap of the GT bursitis worseningw ill provide with injections today Bilateral trochanteric bursitis 2253426870 8143776 M70.61 M70.62 very tender with left >righttend er to palpfluid filled sacinjecti ons provided today [id number] KARLIE RON APRN [facility] [address] [place] [address] 09/14/2017 15:22:40 09/14/2017 16:47:40 Seropositive rheumatoid arthritis 149146763 M05.9 chronic and recurring painsno synovitiss ystemic [...] see if it helps the right leg long-term methotrexate user [id number] 00 Z79.899 chronic and recurring with normal systemic examinatio nlabs and refills today Fibromyalgia 444301057 M 79.7 stable with a normal systemic examinatio n Sciatica 03678477 M54.32 improved overall; however flared today worse in the right legmay be overlap of the GT bursitis worsenings table today Bilateral trochanteric bursitis 4586751046 2240031 M70.61 M70.62 very tender with left >righttend er to palpbut without fluid filled sacs today [id number] KARLIE RON APRN [facility] [address] [place] [address] 12/12/2017 15:32:21 12/12/2017 16:55:32 Seropositive rheumatoid arthritis 808909654 M05.9 chronic and recurring painsno synovitiss ystemic [...] leg as it has in the past 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 [id number] 00 Z79.899 chronic and recurring with normal systemic examinatio nlabs and refills today Sciatica 71214323 M54.32 improved overall; however flared today worse in the right legmay be overlap of the GT bursitis worsenings table todaywill provide with 120 mg Im injection today Bilateral trochanteric bursitis 4171857098 8268883 M70.61 M70.62 very tender with right > lefttender to palpbut without fluid filled sacs today [id number] KARLIE RON [facility] [address] [place] [address] 03/09/2018 15:26:12 03/15/2018 10:25:57 Seropositive rheumatoid arthritis 576982163 M05.9 chronic and recurring painsno synovitiss ystemic [...] has in the past from increased sciatica 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 [id number] 00 Z79.899 chronic and recurring with normal systemic examinatio nlabs and refills today Sciatica 50421688 M54.32 improved overall; however flared today worse in the right legmay be overlap of the GT bursitis worsenings table todaywill provide with 120 mg Im injection today Bilateral trochanteric bursitis 3647285923 8395084 M70.61 M70.62 very tender with right > lefttender to palpbut without fluid filled sacs today [id number] KARLIE RON APRN [facility] [address] [place] [address] 09/08/2018 13:32:34 09/08/2018 14:38:16 Seropositive rheumatoid arthritis 482976318 M05.9 chronic and recurring painsno synovitiss ystemic [...] has in the past from increased sciatica 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 [id number] CHAZ AVILES MD [facility] [place] [address] [place] [address] 03/25/2020 08:09:21 03/25/2020 11:57:38 Seropositive rheumatoid arthritis 801497186 M05.9 69-year-ol d female with a very [...] her to obtain the labs locally in [place] with results faxed to our office for our review. Based on the studies we can decide if she needs to go back on the leflunomid e or low-dose prednisone . once on the medication s, she has to be followed regularly, every 3 months. Long-term drug therapy 182748366 Z79.899 obtain labs to assess the current use of medication s including leflunomid e and steroids. She will do the labs locally. [id number] KARLIE RON APRN [facility] [address] [place] [address] 06/03/2020 15:20:07 06/03/2020 16:38:19 Seropositive rheumatoid arthritis 252921476 M05.9 69-year-ol d female with a very [...] her to obtain the labs locally in [place] with results faxed to our office for our review. Based on the studies we can decide if she needs to go back on the leflunomid e or low-dose prednisone . with labs indicated chronic kidney disease in addition with the current worsening issues it would be beneficial for her to be on baclofen and prednisone Long-term drug therapy 173439973 Z79.899 obtain labs to assess the current use of medication s including leflunomid e and steroids. She will do the labs locally. Strain of neck muscle 36 7962674 S16.1XXA [id number] KARLIE RON APRN [facility] [address] [place] [address] 09/25/2020 14:56:21 09/26/2020 08:27:33 Seropositive rheumatoid arthritis 914874495 M05.9 69-year-ol d female with a very [...] her to obtain the labs locally in [place] with results faxed to our office for [...] call lasted 11 minutes Long-term drug therapy 788836340 Z79.919 obtain labs to assess the current use [...] 2 [employer]ICARE SUPP[employer]MENT) Yolanda Agosto [id number] Yolanda Agosto 10/08/2020 1 [place] Yolanda Agosto [id number] Yolanda Agosto 10/08/2020 1 [employer] (MEDICARE REPLACEMENT/ ADVANTAGE - [place]PO) [id number] Yolanda Agosto [id number] Yolanda Agosto Notes Date Note Type Note [...] is coming out--she will follow up with [facility] neurosurgery[facility]spine center when she schedules an appointment; she used to see Dr. Donaldson and after he has left, she will call for the referral; she currently denies bowel or bladder changes, cp, soa, rash or fever and all others negative KARLIE RON, JONNY [address] [place], [address], [facility] 09/17/2018 23:23:58 06/11/2019 text/html ROS as noted [...] with her daughter. CHAZ AVILES MD [address] [place], [address], [facility] 06/11/2019 16:15:46 03/25/2020 text/html ROS as noted in the HPI Visit today is being conducted via telephone/audio only. The patient confirms that he/she is physically located in [place] at the time of this visit. Patient [...] patient, who is a poor historian CHAZ AVILES MD [address] [place], [address], [facility] 03/25/2020 11:42:51 09/25/2020 text/html ROS as noted in the HPI Visit today is being conducted via telephone/audio only. The patient confirms that he/she is physically located in [place] at the time of this visit. Patient [...] a poor historian KARLIE RON APRN [address] [place], [address], [facility] 09/25/2020 15:21:28 OBGyn Episode No OBEpisode recorded.
--- OUTSIDE RECORDS SUMMARY | 2025-02-19 17:50 | XMS_ITS | Encounter Summary ---
Author Organization Healthcare Address [address] [place] [address] Care Team Providers Care Major General Name Role Phone Antonio Ta MD Primary Care Provider [phone] Encounter Details Date Type Department Care Team (Late st Contact Info) Description 10/08/2023 Telephone [facility] [address], [address] [place] [address] Tawanda Lundberg MD [address] [place] [address] Social History Tobacco Use Types [...] calls but eventually it was entered into [employer]. The question was about her transverse aortic [...] atherosclerotic changes throughout her whole aorta. MES * Progress Notes - Tawanda Lundberg MD - 10/08/2023 7:35 PM EDT documented in this encounter Plan of Treatment Not on file documented as of this encounter Visit Diagnoses Not on filedocumented in this encounter Care Teams Major General Relationship Specialty Start Date End Date Antonio Ta MD [facility] [address] PCP - General 07/04/20 documented as of this encounter
--- OUTSIDE RECORDS SUMMARY | 2025-02-19 17:50 | XMS_ITS | Clinical Summary ---
Author Organization Healthcare Address [address] [place] [address] Care Team Providers Care Claim Inspector Name Role Phone Antonio Ta MD Primary Care Provider [phone] Social History Tobacco Use Types Packs/Day Years [...] of Treatment Not on file Care Teams Claim Inspector Relationship Specialty Start Date End Date Antonio Ta MD [facility] [address] PCP - General 07/04/20
[2025-02-19 17:58] LABS: Color,Urine YELLOW (Yellow); Glucose,Urine (UA) Negative (Negative); Ketones,Urine TRACE (Negative); Leukocyte Esterase,Urine Negative (Negative); PH,Urine 6.0 (5.0-8.5); Protein,Urine 2+ (Negative); Specific Gravity, Urine 1.020 (1.005-1.030); Urobilinogen,Urine 1.0 EU/dl (0.2)
[2025-02-19 17:59] LABS: Alanine Aminotransferase 11 U/L (12-78); Albumin Level 2.9 g/dl (3.5-5.0); Albumin/Globulin Ratio 0.9 (1.1-1.8); Alkaline Phosphatase 146 U/L (38-126); Anion Gap 10.6 mEq/L (5-15); Aspartate Amino Transferase 21 U/L (14-36); Bilirubin,Total 1.0 mg/dl (0.2-1.3); Blood Urea Nitrogen 20 mg/dl (7-17); Calcium 8.2 mg/dl (8.4-10.2); Carbon Dioxide 28 mmol/L (22.0-30.0); Chloride 93 mmol/L (98-107); Creatinine Clearance Estimated 75 mL/min (50-200); Creatinine,Serum 0.80 mg/dl (0.52-1.04); Estimated Glomerular Filt Rate 70 ml/min (>60); GFR (African American) 84 ML/MIN (>60); Globulin 3.4 g/dL (1.3-3.2); Glucose 137 mg/dl (74-100); Potassium 3.6 mmoL/L (3.5-5.1); Sodium 128 mmol/L (136-145); Total Protein,Serum 6.3 g/dl (6.3-8.2)
--- NOTE | 2025-02-19 17:59 | XR_ITS ---
PROCEDURE INFORMATION: Exam: XR Chest Exam date and time: 02/19/2025 6:36 PM Age: 74 years old Clinical indication: Other: Sepsis TECHNIQUE: Imaging protocol: Radiologic exam of the chest. Views: 1 view. COMPARISON: CT CHEST W CON 12/28/2024 6:35 PM FINDINGS: Lungs: Unremarkable. No consolidation. Pleural spaces: Unremarkable. No pleural effusion. No pneumothorax. Heart/Mediastinum: Unremarkable. No cardiomegaly. Bones/joints: Internal fixation spine. Osteoarthritic change left shoulder. IMPRESSION: No acute cardiopulmonary findings.
[2025-02-19] MEDS: 0.9 % SODIUM CHLORIDE 1000ML 1,000 ML 999 ML IV (18:10)
[2025-02-19] MEDS: PIPERCILLIN/TAZO 3.375 GM in 0.9 % SODIUM CHLORIDE 50 ML IV (18:11)
[2025-02-19 18:12] LABS: Bacteria,Urine 3+ /lpf; Bilirubin,Urine Negative (Negative); Mucus,Urine 2+ /lpf
[2025-02-19 18:16] LABS: Procalcitonin 0.283 ng/mL (0.0-2.0)
[2025-02-19] MEDS: IOPAMIDOL-370 (76%);100ML BOTTLE 75 ML IV (18:41)
[2025-02-19] MEDS: SODIUM CHLORIDE 0.9% 10ML SYR (RAD ONLY) 10 ML IV (18:42)
[2025-02-19 19:04] LABS: Hepatitis C Ab Qual. W/ RFX NEGATIVE (Negative)
[2025-02-19] MEDS: CLINDAMYCIN PHOSPHATE/D5W 600 MG/50 ML PIGGYBACK 100 MG IV (20:48)
[2025-02-19] MEDS: VANCOMYCIN HCL 2,000 MG in 0.9 % SODIUM CHLORIDE 500 ML 250 MG IV (20:56)
[2025-02-19] MEDS: ACETAMINOPHEN 650MG SUPPOSITORY 650 MG RC (21:23)
--- NOTE | 2025-02-19 21:49 | PC.NURSE ---
EMS called for transfer to .
[2025-02-20 09:44] LABS: Acinetobacter calcoaceticus-ba Not Detected; Bacteroides fragilis Not Detected; Candida auris Not Detected; Candida glabrata Not Detected; Enterobacterales Not Detected; Enterococcus faecalis Not Detected; Enterococcus faecium Not Detected; Klebsiella aerogenes Not Detected; Klebsiella pneumoniae grp Not Detected; Proteus spp. Not Detected; Salmonella spp. Not Detected; Serratia marcescens Not Detected; Staphylococcus epidermidis Detected; Staphylococcus lugdunensis Not Detected; Staphylococcus spp. Detected; Stenotrophomonas maltophilia Not Detected; Streptococcus agalactiae(GrpB) Not Detected; Streptococcus pyogenes Group A Not Detected; Streptococcus spp. Not Detected; mecA/C Detected
--- NOTE | 2025-02-21 08:52 | PC.NURSE ---
Blood culture results faxed to [facility]
== END 2025-02-19 22:00 | disposition short-term general hospital (02) ==
PROVIDERS: Nurse Practitioner Family; Emergency Provider Student in an Organized Health Care Education/Training Program; PCP Internal Medicine
DX: A41.1 Sepsis due to other specified staphylococcus (principal); M72.6 Necrotizing fasciitis; L89.313 Pressure ulcer of right buttock, stage 3; L89.152 Pressure ulcer of sacral region, stage 2; E87.1 Hypo-osmolality and hyponatremia; R41.82 Altered mental status, unspecified; B95.7 Other staphylococcus as the cause of diseases classified elsewhere
CPT/HCPCS: 51702; 71045; 74177; 80053; 81001; 82803; 83605; 84145; 85025; 86803; 87040; 87070; 87077; 87086; 87154; 87186; 87205; 87389; 96365; 96366; 96367; 99285; 99291; J0736; J2543; J3373; J7030; J7040; Q9967